=== PATIENT | male | born 1945 | race African-American/Black ===

== ENCOUNTER 2016-09-21 15:08 | Inpatient (IN) ==
[2016-09-21] MEDS ORDERED: Ipratropium/Albuterol Neb 3 ML IH ONE (15:29)
[2016-09-21] MEDS ORDERED: methylPREDNISolone 125 MG/2 ML VIAL IVP ONE (15:29)
--- NOTE | 2016-09-21 15:45 | Emergency Department Note ---
Disposition Clinical Impression: Volume overload, Hypoxia, Tachycardia, Dialysis patient, COPD exacerbation Disposition: Admitted As Inpatient Condition: Good Time of Disposition: 17:11 General Adult HPI - General Stated complaint: Swelling/Doc said I needed admitted Time Seen by Provider: 09/21/16 15:22 Source: patient, family Mode of arrival: ambulatory Limitations: no limitations Nursing Notes Reviewed: Yes Vital Signs Reviewed: Yes - History of Present Illness HPI Narrative: Patient presents emergency room with complaint of increased fluid overload. He is a known dialysis patient that had his dialysis today. His care for by Dr. Del Toro. He has noticed quite a bit of fluid overload over the last several days to a week. He was evaluated at the dialysis clinic today and recommended come the emergency room after his treatment for evaluation and possible admission. His blood pressure there was 153/83 heart rate 120 and his temperature was normal. Patient denies any other symptoms or complaints at this time. He has not had any changes medications. He has not been ill. He is currently denying chest pain fevers chills nausea vomiting or diarrhea. Denies any headache or vision change. Main complaint is exertional dyspnea and fluid overload Onset (ago): day(s) (5 days) Location: lower extremity (bilateral ) Pain Severity: severe, similar to prior episodes Pain Scale: 9 Quality: other (Increased work of breathing) Consistency: Worsening Improves with: other (Sitting upright resting and having his dialysis treatments ) Worsens with: other (Fluids and exertion) Associated symptoms: Reports: malaise, shortness of breath Treatments Prior to Arrival: none - Related Data Home Medications Medication Instructions Recorded Confirmed Carvedilol [Coreg] 25 mg PO DAILY 09/08/15 09/22/16 CloNIDine HCl 0.1 mg PO QAM 09/08/15 09/22/16 Albuterol Neb [AccuNeb] 1.25 mg IH Q4H PRN 09/21/16 09/22/16 Amlodipine [Norvasc] 5 mg PO DAILY 09/22/16 09/22/16 Budesonide/Formoterol 160/4.5 2 puff IH BIDR 09/22/16 09/22/16 [Symbicort 160/4.5] Cetirizine HCl/Pseudoephedrine 1 each PO DAILY 09/22/16 09/22/16 [Cetirizine-Pse ER 5-120 mg Tab] Cinacalcet [Sensipar] 30 mg PO DAILY 09/22/16 09/22/16 Guaifenesin/Codeine Phosphate 10 ml PO Q4H PRN 09/22/16 09/22/16 [Guaiatussin AC Liquid] Ipratropium Neb [Atrovent Neb] 0.5 mg IH Q6HR 09/22/16 09/22/16 Loperamide [Imodium] 2 mg PO Q4HR PRN 09/22/16 09/22/16 Omeprazole [PriLOSEC] 20 mg PO DAILY 09/22/16 09/22/16 Sildenafil Citrate [Viagra] 50 mg PO DAILY PRN 09/22/16 09/22/16 Tadalafil [Cialis] 20 mg PO DAILY 09/22/16 09/22/16 Previous Rx's Medication Instructions Recorded Ipratropium/Albuterol Sulfate 4 gm IH 2-4XD PRN #2 aer.w.adap 11/28/15 [Combivent Respimat Inhal [place]] Aspirin 81 mg PO DAILY #0 tab.chew 09/28/16 Diltiazem CD (24hr) [Cardizem CD] 180 mg PO DAILY #30 cap.er.24h 09/28/16 LORazepam [Ativan] 0.5 mg PO BID PRN #20 09/28/16 Losartan [Cozaar] 100 mg PO DAILY #30 tablet 09/28/16 Oxycodone HCl 15 mg PO Q6H PRN #20 tablet 09/28/16 Allergies Allergy/AdvReac Type Severity Reaction Status Date / Time rofecoxib [From Vioxx] Allergy Swelling Verified 11/26/15 17:21 of Lip/Tongue/Throat All systems ED: reviewed and negative except as stated. Constitutional: Denies: fever, chills Cardiovascular: Reports: dyspnea on exertion, orthopnea, edema. Denies: chest pain, palpitations, syncope Respiratory: Denies: cough, wheezes Gastrointestinal: Denies: abdominal pain, nausea, vomiting, diarrhea Musculoskeletal: Denies: back pain Integumentary: Denies: rash Neurological: Denies: headache Past Medical History - Past Medical History Attestation: Yes The following information was validated with the patient. Source: patient Medical history: Reports: aortic aneurysm, diabetes, dialysis, hypertension, renal disease, other Surgical history: Reports: angioplasty/stent (x3), cholecystectomy, other (AAA repair, left knee surgery.) Psychiatric history: Reports: no psych history - Social History Smoking Status: Current every day smoker Smokeless Tobacco Status: No Alcohol use: Reports: none Drug use: Reports: none Physical Exam - General Limitations: no limitations General appearance: alert, in no apparent distress - Chest Chest inspection: Present: normal inspection, symmetric chest wall rise. Absent : tenderness - Respiratory Respiratory exam: Present: respiratory distress, wheezes, accessory muscle use. Absent: stridor, prolonged expiratory phase - Cardiovascular Cardiovascular exam: Present: regular rate, tachycardia, normal heart sounds - Abdominal Exam Abdominal exam: Present: soft, Non-Tender. Absent: tenderness, distention, guarding - Extremities Exam Extremities exam: Present: normal inspection, full ROM, pedal edema (Bilateral lower extremity pitting edema. Edema is up to the knee +2 nature). Absent: tenderness - Neurological Exam Neurological exam: Present: alert, oriented X3, CN II-XII intact, normal gait - Psychiatric Psychiatric exam: Present: normal affect, normal mood - Skin Skin exam: Present: warm, dry, intact, normal color Course Course Narrative: Patient seen and examined the time of arrival. See history of present illness. 70-year-old male presents by personal vehicle for evaluation of fluid overload exertional dyspnea. He is a known dialysis patient taken care of by Dr. Del Toro. He had his normal dialysis appointment today and had his normal amount of fluid removed. There are concerned because he has had issues with fluid overload over the last 3-4 days. They were unable to get him back to his normal starting weight. Patient denies any increase in fluids denies any recent illnesses denies any chest pain headache or vision changes. He denies any other specific complaints except for fluid overload shortness of breath. Physical examination shows a chronically ill-appearing 7-year-old male that does appear in some mild respiratory distress on evaluation. He has some moderate accessory muscle use. Is atraumatic pupils are equal and reactive. Oropharynx is patent. Lungs are clear at this time and does have some wheezes in the bases during my evaluation. Heart is regular and tachycardic. No murmurs noted. No muffled heart sounds noted. Abdomen is soft nontender nondistended. Patient moves all 4 extremities appropriately. He does have some pitting edema up to the knee in the past. Patient has no other acute findings or signs of infectious etiology based on evaluation. Vital signs are reviewed he is afebrile. He is hypoxic down to 78% but is still speaking and does not have any other complaints. Based on symptom history and presentation and other underlying medical conditions patient will have breathing treatments and steroids for that here for known COPD and emphysema. Basic laboratory workup, should panel ordered. Will be collected if he has the ability to produce that at this time. Patient will also have chest x-ray to address any interstitial disease or pulmonary congestion. In the and patient will most likely need admission to hospital for fluid management at this time. Infectious etiology to rule out an underlying medical conditions will be treated. Patient stable resting comfortably in the bed at this point. He speaks in full sentences but does have some increased respirations with speaking. Disposition pending workup and evaluation - Reevaluation(s) Reevaluation #1: Patient's labs are reviewed. BNP is markedly elevated comparison to previous. Renal function is a baseline at this time. Chest x-ray does show bilateral pulmonary congestion most likely consistent with his fluid overload at this time. The patient was placed to Dr. Del Toro the patient's clinic administrator. Reviewed the presentation symptoms he recommended admission to the hospitalist for daily dialysis until symptoms have resolved. Otherwise patient's vital signs are reviewed with him as well and he says that he is persistently tachycardic he is never has been found have any other issues at this point. Admission process to be completed this time for fluid overload secondary to noncompliance with outpatient management of renal diet. Patient has been going to his appropriate dialysis evaluations. No other acute issues noted during this triage and evaluation during this ED evaluation. Admission process to be completed this time. Hospitals paged at this time Time: 17:10 Reevaluation #2: Reason discuss with the hospitalist Dr. Cervantes. Detailed review of the presentation symptoms as well as the vital signs were reviewed. Tachycardia as well as hypoxia were discussed at great length. Patient will be admitted to the hospital consultations Dr. Del Toro. No other acute recommendations noted this time. Patient informed meal provided on a renal diet and fluid restriction. Patient is stable with stable vital signs and no acute lab abnormalities. Admission process to be completed at this point. Time: 17:37 Vital Signs Temperature 98.8 F 09/21/16 15:25 Pulse Rate 128 09/21/16 15:25 Respiratory Rate 18 09/21/16 15:25 Blood Pressure 147/84 09/21/16 15:25 O2 Sat by Pulse Oximetry 90 L 09/21/16 15:25 Temperature 98.0 F 09/28/16 14:50 Pulse Rate 89 09/28/16 10:36 Respiratory Rate 22 09/28/16 19:06 Blood Pressure 191/97 09/28/16 19:06 O2 Sat by Pulse Oximetry 90 L 09/28/16 10:36 Oxygen Delivery Oxygen Delivery Nasal Cannula Medical Decision Making - MDM Narrative Medical decision making narrative: Fluid overload, dialysis patient, exertional dyspnea - Medical Records Medical records reviewed: Yes I reviewed the patient's medical records. - Lab Data Lab results reviewed: Yes I reviewed the patient's lab results. Result diagrams: 09/28/16 10:10 09/28/16 10:10 - Radiology Data Radiology results reviewed: Yes I reviewed the patient's radiology results. - EKG Data EKG #1 EKG attestation: Yes I reviewed and interpreted this EKG. Rate: tachycardia Rhythm: A. flutter, with a 2:1 block Interpretation: no acute changes (Repeat EKG done today shows a flutter with rapid ventricular response. This is consistent with previous evaluation done on 09/19/16), unchanged when compared to prior tracing (date) Critical Care Time Critical Care Time: Yes Total Critical Care Time: 35 Attestation: inDependent patient procedures and medical management Attestation Statement - Attestation Attestation: I examined this patient and my medical decision-making was reviewed with the Resident Physician. I agree with the documented findings, disposition and treatment plan as described.
[2016-09-21 16:23] LABS: Basophils % 0.5 %; Eosinophils # 0.1 K/mcL (0.0-0.6); Eosinophils % 2.1 %; Hemoglobin 11.6 g/dL (12.9-16.9); Immature Granulocytes % 0.3 % (0-4); Immature Platelets 6.3 % (1.1-6.1); Lymphocytes % 14.6 %; Mean Corpuscular HGB Conc 31.4 g/dL (31.6-35.5); Mean Corpuscular Hemoglobin 27.2 pg (28.0-33.3); Mean Corpuscular Volume 86.9 fL (83.0-100.0); Mean Platelet Volume 11.2 fL (9.4-12.4); Monocytes # 0.4 K/mcL (0.0-1.3); Monocytes % 6.1 %; Platelet Count 111 K/mcL (140-400); Red Blood Count 4.26 M/mcL (4.19-5.50); Red Cell Distribution Width 19.2 % (11.5-14.5); Segmented Neutrophils % 76.4 %
[2016-09-21 16:59] LABS: Calcium 8.8 mg/dL (8.6-10.8); Potassium 3.5 mEq/L (3.5-4.5)
--- NOTE | 2016-09-21 21:05 | Internal Med History&Physical ---
Date of Encounter: 09/22/16 Time of Encounter: 20:30 Assessment and Plan (1) Volume overload Current visit: Yes Status: Acute patient has +2 pitting edema on lower extremities bilaterally upon exam. rhonchi and wheezing heard upon exam CXR showed mild basilar opacities, slightly more prominent on the right- possible edema. It is possible that this patient may have undiagnosed CHF- ordered echocardiogram. Consider cardio-renal syndrome as a possible etiology. Continue to monitor. consult to nephrology-appreciate recommendations. Qualifiers: Hypervolemia type: unspecified Qualified Code(s): E87.70 - Fluid overload, unspecified (2) Elevated troponin Current visit: Yes Status: Acute patient's troponin level was .1 Etiology likely due to ESRD- patient has a hx of elevated troponins from previous visits. Patient denies chest pain COntinue to trend troponin continue to monitor for chest pain. (3) ESRD (end stage renal disease) on dialysis Current visit: No Status: Chronic Patient has ESRD, on dialysis MWF- sees Dr. Mg. Patient states that he is compliant with going to his dialysis sessions most weeks. He states that he usually shows up to 2/3 dialysis sessions per week. Patient received dialysis today, they sent him to ED because of fluid overload. Consult to nephrology made- patient may need back to back dialysis- nephrology to decide. Appreciate recommendations. (4) Atrial fibrillation Current visit: No Status: Chronic patient takes coumadin at home. INR measured at 1.8. continue coumadin inpatient- pharmacy to dose. Qualifiers: Atrial fibrillation type: chronic Qualified Code(s): I48.2 - Chronic atrial fibrillation (5) CAD (coronary artery disease) Current visit: No Status: Acute continue home med lipitor, aspirin once home med list is confirmed. Qualifiers: Coronary Disease-Associated Artery/Lesion type: squaxin artery [place] vs. transplanted heart: squaxin heart Associated angina: without angina Qualified Code(s): I25.10 - Atherosclerotic heart disease of squaxin coronary artery without angina pectoris (6) Tobacco abuse Current visit: No Status: Chronic patient counseled on importance of tobacco cessation. Nicotine patch PRN (7) Type 2 diabetes mellitus Current visit: No Status: Chronic diabetic diet with ACHS accuchecks. Patient does not have any diabetes meds listed on his home medication list. Medium dose sliding scale insulin coverage. Qualifiers: Diabetes mellitus complication status: with kidney complications Diabetes mellitus complication detail: with chronic kidney disease Diabetes mellitus custodial insulin use: unspecified custodial insulin use status Chronic kidney disease stage: on chronic dialysis Qualified Code(s): E11.22 - Type 2 diabetes mellitus with diabetic chronic kidney disease; N18.6 - End stage renal disease (8) DVT prophylaxis Current visit: No Status: Acute EPCD Internal Medicine - H&P: HPI Chief complaint: edema Admitted From: Home Plans for Post Hospital Care: Home History of present illness: PCP: Chilo Lewis Mr. Hernandez is a 70 year old male with PMHx of ESRD (on dialysis MWF sees Dr. Mg), hx of pancreatitis, DM, Afib (on coumadin), CAD, back pain, knee pain. He received his regular dialysis today, and made the dialysis team are of his recent fluid overload and swelling in his legs. They told him to come to the emergency department. He denies chest pain, denies nausea, vomiting, fever, and chills. He reports mild shortness of breath upon exertion and denies any sick contacts. He states that he is mostly compliant with dialysis, and goes to most of his sessions. Sometimes he may miss one of the three sessions per week that he has. Social History: smokes 2PPD for the past 50 years. rarely drinks alcohol. Denies illicit drug use. Surgical History: left rotator cuff repair, bilateral knee arthroscopy, aortic aneurysm repair, back surgery for spinal fusion. Family Hx: mother is alive and has arthritis. Father from a "mass in his belly" at age 89 Past Med Surg Social Fam HX - Past Medical History Medical history: aortic aneurysm, diabetes, dialysis, hypertension, renal disease, other Psychiatric history: no psych history - Past Surgical History Surgical History: angioplasty/stent, cholecystectomy, other - Social History Smoking Status: Current every day smoker Smokeless Tobacco Status: No Alcohol use: none Drug use: none - Family History Mother History Unknown: Yes Hx Family Cardiac Disorders: Yes (HTN) Father History Unknown: Yes Hx Family Cardiac Disorders: Yes (HTN) Internal Medicine - H&P: Meds Carvedilol [Coreg] 25 mg PO BID 09/08/15 [History] CloNIDine HCl 0.1 mg PO QAM 09/08/15 [History] Aspirin [Adult Low Dose Aspirin EC] 81 mg PO DAILY 11/26/15 [History] Atorvastatin [Lipitor] 40 mg PO HS #30 tablet 11/28/15 [Rx] Ipratropium/Albuterol Sulfate [Combivent Respimat Inhal [place]] 4 gm IH 2-4XD PRN #2 aer.w.adap 11/28/15 [Rx] Albuterol Neb [AccuNeb] 1.25 mg IH Q4H PRN 09/21/16 [History] Amitriptyline HCl 100 mg PO HS 09/21/16 [History] Amlodipine Besylate 10 mg PO DAILY 09/21/16 [History] Calcitriol 0.5 mcg PO DAILY 09/21/16 [History] Hydrochlorothiazide 25 mg PO DAILY 09/21/16 [History] Losartan Potassium [Cozaar] 50 mg PO BID 09/21/16 [History] Oxybutynin [Ditropan] 5 mg PO TID 09/21/16 [History] Oxycodone HCl 15 mg PO Q6H 09/21/16 [History] Warfarin [Coumadin] 10 mg PO MOWEFR 09/21/16 [History] Warfarin [Coumadin] 15 mg PO SUTUTHSA 09/21/16 [History] Allergies rofecoxib [From Vioxx] Allergy (Verified 11/26/15 17:21) Swelling of Lip/Tongue/Throat ROS unobtainable: other All Systems PM: A 10-system review of systems was performed and is negative for pertinent findings except as documented above in the HPI. - Constitutional Constitutional: weight gain, no anorexia, no chills, no fever(s) - Cardiovascular Cardiovascular ROS IM: dyspnea on exertion, no chest pain - Respiratory Respiratory: cough, no hemoptysis - Gastrointestinal Gastrointestinal: no abdominal pain, no hematemesis, no melena - Genitourinary Genitourinary ROS male: no hematuria - Constitutional Vitals: Temp Pulse Resp BP Pulse Ox 97.9 F 124 18 144/87 93 L 09/21/16 18:59 09/21/16 18:59 09/21/16 18:59 09/21/16 18:59 09/21/16 18:59 General appearance: Present: A&O X 3, pleasant, no acute distress - Head Head exam: Present: atraumatic, normocephalic - Neck Neck exam general surgery: Present: supple, trachea midline - Respiratory Respiratory exam: Present: rales, rhonchi - Cardiovascular Cardiovascular exam: Present: distant heart sounds - GI/Abdominal GI/Abdominal exam: Present: distended. Absent: tenderness - Extremities Exam Extremities exam: Present: pedal edema. Absent: cyanotic Additional comments: +3 pitting edema on lower extremities bilaterally. Right upper arm has AV fistula on right arm for dialysis. - Skin Additional comments: lower extremity skin extremely dry and scaling Internal Med - H&P Results - Labs CBC & Chem 7: 09/21/16 16:16 09/21/16 16:16
[2016-09-21] MEDS ORDERED: Mag Hydrox/Al Hydrox/Simeth 30 ML UDC PO PRN (21:56)
[2016-09-21] MEDS ORDERED: Naloxone 0.4 MG/ML INJ IVP PRN (21:56)
[2016-09-21] MEDS ORDERED: Ondansetron 4 MG/2 ML VIAL IVP PRN (21:56)
[2016-09-21] MEDS ORDERED: Acetaminophen 325 MG TABLET PO PRN (21:56)
[2016-09-21] MEDS ORDERED: *HR* Warfarin 5 MG TABLET PO SCH (22:00)
[2016-09-21] MEDS ORDERED: Nicotine 21 MG PATCH.TD24 TD PRN (22:28)
[2016-09-21 22:43] LABS: INR 1.8; Prothrombin Time 19.3 Seconds (9.4-12.1)
[2016-09-22] MEDS: Ipratropium/Albuterol Neb 3 ML IH PRN (00:27)
[2016-09-22] MEDS ORDERED: *HR* Dextrose 50 % in Water (Syg) 50 ML SYRINGE IVP PRN ×2 (00:55→01:38)
[2016-09-22] MEDS ORDERED: D5% in Water 1,000 ML IV PRN ×2 (00:55→01:38)
[2016-09-22] MEDS ORDERED: Dextrose Gel 15 GM PO PRN ×4 (00:55→01:38)
[2016-09-22 02:35] LABS: Albumin 3.1 g/dL (3.5-5.0); Albumin/Globulin Ratio 0.7 (1.1-2.2); Bilirubin,Total 0.7 mg/dL (0.2-1.2); Calcium 8.9 mg/dL (8.6-10.8); Globulin 4.5 g/dL (2.4-3.5); Magnesium 1.9 mg/dL (1.6-2.6); Phosphorous 4.4 mg/dL (2.3-4.7); Total Protein 7.6 g/dL (6.0-8.3)
[2016-09-22] MEDS ORDERED: *HR* EPINEPHrine 1 MG/10 ML SYRINGE IVP ONE (07:51)
[2016-09-22] MEDS ORDERED: *HR* Atropine Sulfate 1 MG/10 ML SYRINGE IV ONE (07:51)
--- NOTE | 2016-09-22 08:04 | Nephrology Consult Note ---
Date of Encounter: 09/22/16 Time of Encounter: 08:02 Assessment and Plan (1) End-stage renal disease Current Visit: Yes Status: Acute Patient has end-stage renal disease related to hypertension nephrosclerosis. He presents with worsening volume overload. This is related to missing dialysis sessions as well as to poor compliance with fluid restriction. Patient will require daily dialysis and/or ultrafiltration until his fluid overload is improved. His blood pressure is poorly controlled. We will get him back on his outpatient medications and then make any changes as necessary. (2) Benign hypertensive kidney disease with end stage renal disease Current Visit: Yes Status: Acute (3) Volume overload Current Visit: Yes Status: Acute Qualifiers: Hypervolemia type: unspecified Qualified Code(s): E87.70 - Fluid overload, unspecified (4) Atrial fibrillation Current Visit: No Status: Chronic Qualifiers: Atrial fibrillation type: chronic Qualified Code(s): I48.2 - Chronic atrial fibrillation History of Present Illness - History of Present Illness This is a 70-year-old male with end-stage renal disease who receives dialysis every Monday in [place]. End-stage renal disease related to hypertension nephrosclerosis. Patient was seen on dialysis yesterday as an outpatient. He is noted to be grossly volume overloaded. He was complaining of symptoms of weakness and pain and difficulty napping his bladder because of edema of the genital area. Patient was admitted to the hospital for volume overload and undergo daily dialysis and/or ultrafiltration. Patient does have a history of COPD. He currently denies any shortness of breath. He denies any chest pain. Does have a history of chronic back pain. He has a history of hypertension as well as atrial fibrillation. He is not clear as to what his medications are. Past Med Surg Social Fam HX - Past Medical History Medical history: aortic aneurysm, diabetes, dialysis, hypertension, renal disease, other Psychiatric history: no psych history - Past Surgical History Surgical History: angioplasty/stent, cholecystectomy, other - Social History Smoking Status: Current every day smoker Smokeless Tobacco Status: No Alcohol use: none Drug use: none - Family History Mother History Unknown: Yes Hx Family Cardiac Disorders: Yes (HTN) Father History Unknown: Yes Hx Family Cardiac Disorders: Yes (HTN) Medications and Allergies Carvedilol [Coreg] 25 mg PO BID 09/08/15 [History] CloNIDine HCl 0.1 mg PO QAM 09/08/15 [History] Aspirin [Adult Low Dose Aspirin EC] 81 mg PO DAILY 11/26/15 [History] Atorvastatin [Lipitor] 40 mg PO HS #30 tablet 11/28/15 [Rx] Ipratropium/Albuterol Sulfate [Combivent Respimat Inhal [place]] 4 gm IH 2-4XD PRN #2 aer.w.adap 11/28/15 [Rx] Albuterol Neb [AccuNeb] 1.25 mg IH Q4H PRN 09/21/16 [History] Amitriptyline HCl 100 mg PO HS 09/21/16 [History] Amlodipine Besylate 10 mg PO DAILY 09/21/16 [History] Calcitriol 0.5 mcg PO DAILY 09/21/16 [History] Hydrochlorothiazide 25 mg PO DAILY 09/21/16 [History] Losartan Potassium [Cozaar] 50 mg PO BID 09/21/16 [History] Oxybutynin [Ditropan] 5 mg PO TID 09/21/16 [History] Oxycodone HCl 15 mg PO Q6H 09/21/16 [History] Warfarin [Coumadin] 10 mg PO MOWEFR 09/21/16 [History] Warfarin [Coumadin] 15 mg PO SUTUTHSA 09/21/16 [History] Allergies rofecoxib [From Vioxx] Allergy (Verified 11/26/15 17:21) Swelling of Lip/Tongue/Throat Review of Systems Constitutional: weakness, weight gain, no excessive sweating, no weight loss Eyes: bilateral: blurred vision (patient denies), diplopia (patient denies) Nose, mouth and throat: no dizziness, no headache(s) Cardiovascular: dyspnea, dyspnea on exertion, edema, irregular heart rhythm, leg edema, pedal edema, no chest pain, no palpitations Respiratory: dyspnea, dyspnea on exertion Gastrointestinal: no abdominal pain, no change in bowel habits Genitourinary Male: difficulty urinating Musculoskeletal: back pain Integumentary: no hirsutism, no striae Neurological: as per HPI, weakness Psychiatric: no depression, no difficulty concentrating Endocrine: as per HPI Hematologic/Lymphatic: no easy bruising, no lymphadenopathy Exam - Vital Signs Vital signs: Initial Vital Signs Temp Pulse Resp BP Pulse Ox 98.8 F 128 18 147/84 90 L 09/21/16 15:25 09/21/16 15:25 09/21/16 15:25 09/21/16 15:25 09/21/16 15:25 Vital Signs - Last 8 Hours Temp Pulse Resp BP Pulse Ox 09/22/16 07:46 97.9 F 125 1 184/103 95 Intake and Output 09/21/16 09/22/16 09/22/16 23:59 07:59 15:59 Other: Blood Glucose* 163 - General Appearance Exam: Patient is sitting up in a chair. He is alert and oriented. He is in no acute distress. Neck is supple. Lungs diminished breath sounds. Heart irregular rate and rhythm. Heart rate is greater than 100. Abdomen is distended. Normal bowel sounds. No bruits masses organomegaly or tenderness. Lower extremities show 3+ edema all the way up to the thighs. There is a functioning AV fistula in the right upper extremity. Results - Lab Results 09/21/16 16:16 09/22/16 01:58 Most recent lab results Calcium 8.9 mg/dL (8.6-10.8) 09/22/16 01:58 Phosphorus 4.4 mg/dL (2.3-4.7) 09/22/16 01:58 Magnesium 1.9 mg/dL (1.6-2.6) 09/22/16 01:58 Consult Discharge Plan - Plan
[2016-09-22] MEDS ORDERED: 0.9 % Sodium Chloride 250 ML IV PRN (08:09)
[2016-09-22] MEDS: Insulin LISPRO 300 UNITS/3 ML VIAL SQ SCH ×3 (08:48→18:11)
[2016-09-22] MEDS: cloNIDine HCl 0.1 MG TABLET PO SCH (09:09)
[2016-09-22] MEDS: Diltiazem CD (24hr) 180 MG CAPSULE PO SCH (09:09)
[2016-09-22] MEDS: Aspirin 81 MG TAB.CHEW PO SCH (09:09)
[2016-09-22 10:11] LABS: INR 1.8; Prothrombin Time 19.4 Seconds (9.4-12.1)
--- NOTE | 2016-09-22 10:58 | Electrocardiograph Report ---
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
--- NOTE | 2016-09-22 17:16 | Internal Med Progress Note ---
Date of Encounter: 09/22/16 Time of Encounter: 14:00 - Assessment and plan (1) Elevated troponin Current Visit: Yes Status: Acute Assessment and plan: Chronic, now downtrending Adynamic, secondary to ESRD (2) End-stage renal disease Current Visit: Yes Status: Chronic Assessment and plan: s/p HD, renal is n board, home meds have been restarted (3) Volume overload Current Visit: Yes Status: Acute Assessment and plan: s/p Ultrafiltration Hemodynamically stable Continue UF per renal Follow ECHO Ensure fluid restriction Qualifiers: Hypervolemia type: unspecified Qualified Code(s): E87.70 - Fluid overload, unspecified (4) CAD (coronary artery disease) Current Visit: No Status: Chronic Assessment and plan: NO chest pain, resume home meds Qualifiers: Coronary Disease-Associated Artery/Lesion type: [place] artery [place] vs. transplanted heart: [place] heart Associated angina: without angina Qualified Code(s): I25.10 - Atherosclerotic heart disease of [place] coronary artery without angina pectoris (5) DVT prophylaxis Current Visit: Yes Status: Acute Assessment and plan: On coumadin, resume same (6) Atrial fibrillation Current Visit: No Status: Chronic Assessment and plan: Rate is controlled INR subtherapeutic, resume home coumadin Monitor INR Qualifiers: Atrial fibrillation type: chronic Qualified Code(s): I48.2 - Chronic atrial fibrillation (7) ESRD (end stage renal disease) on dialysis Current Visit: No Status: Chronic (8) Tobacco abuse Current Visit: No Status: Chronic (9) Type 2 diabetes mellitus Current Visit: No Status: Chronic Assessment and plan: SSI Qualifiers: Diabetes mellitus complication status: with kidney complications Diabetes mellitus complication detail: with chronic kidney disease Diabetes mellitus long-term insulin use: unspecified long-term insulin use status Chronic kidney disease stage: on chronic dialysis Qualified Code(s): E11.22 - Type 2 diabetes mellitus with diabetic chronic kidney disease; N18.6 - End stage renal disease - Subjective Interval history: Mr. Hernandez is a 70 Y/O M with PMH of ESRD on HD MWF, not complaint, HTN (not complaint per his pharmacy, he has not filled any of his medications since April 2016), Atrial fibrillation on Coumadin (not therapeutic), CAD, Active tobacco use, DM2 He is admitted and being managed for volume overload secondary to medication, fluid restriction and HD non-compliance He was seen in his room after hemodialysis, he was having lunch He denied any new complains He reports his breathing has improved because of HD, his bilateral lower extremity swelling remains same - Constitutional Vitals: Temp Pulse Resp BP Pulse Ox 97.8 F 83 16 106/64 91 L 09/22/16 15:48 09/22/16 15:48 09/22/16 15:48 09/22/16 15:48 09/22/16 15:48 General appearance: Present: A&O X 3, pleasant, no acute distress - Head Head exam: Present: atraumatic, normocephalic - Eye Eye exam: Present: PERRL, conjuntiva pink, sclera anicteric Pupils: Present: PERRL - Neck Neck exam general surgery: Present: supple, trachea midline. Absent: lymphadenopathy - Respiratory Respiratory exam: Present: CTAB. Absent: accessory muscle use, rales, rhonchi, wheezes - Cardiovascular Cardiovascular exam: Present: irregular rhythm, +S1, +S2. Absent: diastolic murmur, gallop, rubs, systolic murmur - GI/Abdominal GI/Abdominal exam: Present: normal bowel sounds, soft, no peritoneal signs. Absent: distended, tenderness - Extremities Exam Extremities exam: Present: pedal edema, warm, radial pulses palpable and symetrical. Absent: calf tenderness, cyanotic - Neurological Exam Neurological exam: Present: CN II-XII intact, oriented X3, no focal deficits. Absent: pronater drift, facial droop, speech deficit - Skin Skin exam: Present: dry Internal Medicine: Result - Labs CBC & Chem 7: 09/21/16 16:16 09/22/16 01:58 - ABG Interpretation ABG results: PT/INR, D-dimer PT 19.4 Seconds (9.4-12.1) H 09/22/16 08:55 - VTE Reasons for not Prescribing Prophylaxis: Not indicated-Anticoagulated or INR therapeutic Documentation of Mechanical Device: Intermittent pneumatic compression device Consult Discharge Plan - Plan Referrals: Chilo Lewis Jr, MD [Primary Care Provider] - 10/06/16 9:00 am
[2016-09-22] MEDS ORDERED: Warfarin perPT PO PRN (18:00)
[2016-09-22] MEDS ORDERED: *HR* Warfarin 5 MG TABLET PO SCH (18:00)
[2016-09-22] MEDS ORDERED: *HR* Warfarin 10 MG TABLET PO ONE (18:00)
[2016-09-22] MEDS ORDERED: *HR* Warfarin 5 MG TABLET PO ONE (18:00)
[2016-09-22] MEDS ORDERED: Insulin LISPRO 300 UNITS/3 ML VIAL SQ SCH (21:00)
[2016-09-23] MEDS: cloNIDine HCl 0.1 MG TABLET PO SCH (02:59)
[2016-09-23] MEDS ORDERED: *HR* Promethazine 25 MG/ML VIAL IVP ONE (05:37)
[2016-09-23 06:02] LABS: Hemoglobin 11.5 g/dL (12.9-16.9); Immature Granulocytes % 0.7 % (0-4)
[2016-09-23 06:04] LABS: Basophils % 0.3 %; Eosinophils # 0.1 K/mcL (0.0-0.6); Eosinophils % 0.9 %; Hematocrit 37.3 % (37.5-50.1); Lymphocytes # 2.3 K/mcL (0.6-4.6); Lymphocytes % 26.3 %; Mean Corpuscular HGB Conc 30.8 g/dL (31.6-35.5); Mean Corpuscular Hemoglobin 27.3 pg (28.0-33.3); Mean Corpuscular Volume 88.4 fL (83.0-100.0); Monocytes # 0.6 K/mcL (0.0-1.3); Neutrophils # 5.6 K/mcL (1.6-8.9); Red Blood Count 4.22 M/mcL (4.19-5.50); Segmented Neutrophils % 64.8 %
[2016-09-23 06:07] LABS: INR 2.6; Prothrombin Time 28.8 Seconds (9.4-12.1)
[2016-09-23] MEDS ORDERED: 0.9 % Sodium Chloride 250 ML IVC ONE (06:17)
[2016-09-23 06:24] LABS: Albumin/Globulin Ratio 0.7 (1.1-2.2); Bilirubin,Total 0.9 mg/dL (0.2-1.2); Calcium 8.4 mg/dL (8.6-10.8); Globulin 4.2 g/dL (2.4-3.5); Total Protein 7.2 g/dL (6.0-8.3)
[2016-09-23 06:25] LABS: Potassium 6.1 mEq/L (3.5-4.5)
[2016-09-23 06:26] LABS: Platelet Count 96 K/mcL (140-400)
[2016-09-23 06:27] LABS: Anisocytosis 1+ (Not Present); Platelet Estimate Decreased (Normal)
[2016-09-23 06:28] LABS: Hypochromasia Present (Not Present)
[2016-09-23] MEDS ORDERED: Calcium Gluconate 1,000 MG in D5% in Water 100 ML IVPB ONE (07:17)
[2016-09-23] MEDS ORDERED: Insulin Human Regular 10 UNIT in 0.9 % Sodium Chloride 10 ML IV ONE (07:18)
[2016-09-23] MEDS ORDERED: 0.9 % Sodium Chloride 250 ML IV PRN (07:27)
[2016-09-23] MEDS: Ipratropium/Albuterol Neb 3 ML IH PRN ×4 (07:34→18:06)
--- NOTE | 2016-09-23 07:56 | Pulmonology Consult Note ---
Date of Encounter: 09/23/16 Time of Encounter: 07:30 Assessment and Plan (1) Cardiopulmonary arrest Current Visit: Yes Status: Acute Pt found to be PEA on the floor this morning, received 4 rounds of ACLS and epi , calcium gluconate given, was intubated and transferred to ICU Insulin and calcium gluconate given in ICU for hyperkalemia Dr. Del Toro contacted and made aware CXR done to confirm placement of ET tube EKG demonstrating sinus bradycardia with first degree AV block, no peaked T waves appreciated Echocardiogram ordered Cardiology consulted (2) End-stage renal disease Current Visit: Yes Status: Chronic Pt of Dr. Del Toro, ESRD with dialysis MWF Reportedly attends 2/3 sessions per week Was fluid overloaded when he arrived at ED prior to admission Hyperkalemic at 6.1 at time of cardiopulmonary arrest this morning Nephrology consulted (3) Volume overload Current Visit: Yes Status: Acute Trace edema in BLE on exam today CXR today demonstrated mildly improve aeration at the right lung base compared to previous study Qualifiers: Hypervolemia type: unspecified Qualified Code(s): E87.70 - Fluid overload, unspecified (4) Elevated troponin Current Visit: Yes Status: Acute Pt troponin 0.1 on admission then 0.08 Etiology likely due to ESRD-has had elevated troponins on previous visits (5) Atrial fibrillation Current Visit: No Status: Chronic Pt on coumadin at home INR 2.6 on most recent labs Continue coumadin and monitor INR Qualifiers: Atrial fibrillation type: chronic Qualified Code(s): I48.2 - Chronic atrial fibrillation (6) Type 2 diabetes mellitus Current Visit: No Status: Chronic SSI during hospital stay Will continue to monitor glucose and adjust coverage as necessary Qualifiers: Diabetes mellitus complication status: with kidney complications Diabetes mellitus complication detail: with chronic kidney disease Diabetes mellitus penitentiary insulin use: unspecified penitentiary insulin use status Chronic kidney disease stage: on chronic dialysis Qualified Code(s): E11.22 - Type 2 diabetes mellitus with diabetic chronic kidney disease; N18.6 - End stage renal disease (7) Tobacco abuse Current Visit: No Status: Chronic Nicotine patch PRN (8) CAD (coronary artery disease) Current Visit: No Status: Chronic Qualifiers: Coronary Disease-Associated Artery/Lesion type: [place] artery [place] vs. transplanted heart: [place] heart Associated angina: without angina Qualified Code(s): I25.10 - Atherosclerotic heart disease of [place] coronary artery without angina pectoris (9) DVT prophylaxis Current Visit: Yes Status: Acute Chronic coumadin therapy EPCDs History of Present Illness Consult date: 09/23/16 Reason for consult: other (Ventilator management) Chief complaint: Volume overload History of present illness: Mr. Hernandez is a 70 year old male with history significant for ESRD on dialysis, aortic aneurysm repair, pancreatitis, DM, Afib, and CAD. He is a pt of Dr. Del Toro and has dialysis MWF. Pt presented to the ED with fluid overload and swelling in his BLE. Pt was found to be in PEA on the floor this morning. At that time he was given 4 rounds of ACLS and epi. He was hyperkalemic and given calcium gluconate on the floor. He was intubated prior to arriving in the ICU. On arrival to the ICU, pt was given calcium gluconate and insulin for his hyperkalemia. EKG showed bradycardia with no peaked T waves appreciated. Dr. Del Toro was contacted and made aware of the event and the need for dialysis this morning. Past Med Surg Social Fam HX - Past Medical History Medical history: aortic aneurysm, diabetes, dialysis, hypertension, renal disease, other Psychiatric history: no psych history - Past Surgical History Surgical History: angioplasty/stent, cholecystectomy, other - Social History Smoking Status: Current every day smoker Smokeless Tobacco Status: No Alcohol use: none Drug use: none - Family History Mother History Unknown: Yes Hx Family Cardiac Disorders: Yes (HTN) Father History Unknown: Yes Hx Family Cardiac Disorders: Yes (HTN) Medications and Allergies Carvedilol [Coreg] 25 mg PO DAILY 09/08/15 [History] CloNIDine HCl 0.1 mg PO QAM 09/08/15 [History] Ipratropium/Albuterol Sulfate [Combivent Respimat Inhal [place]] 4 gm IH 2-4XD PRN #2 aer.w.adap 11/28/15 [Rx] Albuterol Neb [AccuNeb] 1.25 mg IH Q4H PRN 09/21/16 [History] Oxycodone HCl 15 mg PO Q6H 09/21/16 [History] Warfarin [Coumadin] 10 mg PO MOWEFR 09/21/16 [History] Warfarin [Coumadin] 15 mg PO SUTUTHSA 09/21/16 [History] Amlodipine [Norvasc] 5 mg PO DAILY 09/22/16 [History] Budesonide/Formoterol 160/4.5 [Symbicort 160/4.5] 2 puff IH BIDR 09/22/16 [ History] Cetirizine HCl/Pseudoephedrine [Cetirizine-Pse ER 5-120 mg Tab] 1 each PO DAILY 09/22/16 [History] Cinacalcet [Sensipar] 30 mg PO DAILY 09/22/16 [History] Diltiazem CD (24hr) [Cardizem CD] 180 mg PO DAILY 09/22/16 [History] Guaifenesin/Codeine Phosphate [Guaiatussin AC Liquid] 10 ml PO Q4H PRN 09/22/16 [History] Ipratropium Neb [Atrovent Neb] 0.5 mg IH Q6HR 09/22/16 [History] LORazepam [Ativan] 0.5 mg PO BID PRN 09/22/16 [History] Loperamide [Imodium] 2 mg PO Q4HR PRN 09/22/16 [History] Omeprazole [PriLOSEC] 20 mg PO DAILY 09/22/16 [History] Sildenafil Citrate [Viagra] 50 mg PO DAILY PRN 09/22/16 [History] Tadalafil [Cialis] 20 mg PO DAILY 09/22/16 [History] Allergies rofecoxib [From Vioxx] Allergy (Verified 11/26/15 17:21) Swelling of Lip/Tongue/Throat ROS unobtainable: other (Pt intubated and sedated) All Systems: A 10-system review of systems was performed and is negative for pertinent findings except as documented above in the HPI. Physical Examination Vital Signs: Vital Signs, Last 4 Hours Temp Pulse Resp BP Pulse Ox 09/23/16 07:22 19 152/84 97 09/23/16 06:59 16 97 09/23/16 04:08 97.6 F 54 20 93/59 94 L General appearance: other (intubated and sedated) ENT: oropharynx moist Neck: supple, JVD Auscultation: bilateral: rhonchi Cardiovascular: other (sinus rhythm, bradycardia) Gastrointestinal: soft, other (Distended) Extremities: edema, other (skin changes consistent with chronic venous stasis) Musculoskeletal: no deformities other (unable to assess due to ET tube and sedation) Ventilator Settings Ventilator Settings: Ventilator Settings, Last 8 Hours Ventilator Mode VC+ Ventilator Mode VC+ Ventilator Tidal Volume 500 Setting Ventilator Tidal Volume 500 Setting Ventilator Respiratory Rate 12 Setting Ventilator Respiratory Rate 12 Setting Actual Respiratory Rate 16 Actual Respiratory Rate 16 Positive End Expiratory 8 Pressure Positive End Expiratory 5 Pressure Peak Inspiratory Airway 34 Pressure Peak Inspiratory Airway 39 Pressure Results - Laboratory Findings CBC and BMP: 09/23/16 05:55 09/23/16 05:55 PT/INR, D-dimer PT 28.8 Seconds (9.4-12.1) H 09/23/16 05:55 Abnormal lab findings: Abnormal lab results Hgb 11.5 g/dL (12.9-16.9) L 09/23/16 05:55 Hct 37.3 % (37.5-50.1) L 09/23/16 05:55 MCH 27.3 pg (28.0-33.3) L 09/23/16 05:55 MCHC 30.8 g/dL (31.6-35.5) L 09/23/16 05:55 RDW 19.0 % (11.5-14.5) H 09/23/16 05:55 Plt Count 96 K/mcL (140-400) L 09/23/16 05:55 Platelet Estimate Decreased (Normal) L 09/23/16 05:55 Immature Plt Fraction 7.0 % (1.1-6.1) H 09/23/16 05:55 Hypochromasia Present (Not Present) A 09/23/16 05:55 Anisocytosis 1+ (Not Present) A 09/23/16 05:55 PT 28.8 Seconds (9.4-12.1) H 09/23/16 05:55 Potassium 6.1 mEq/L (3.5-4.5) H D 09/23/16 05:55 BUN 54 mg/dL (8-26) H D 09/23/16 05:55 Creatinine 5.43 mg/dL (0.72-1.25) H 09/23/16 05:55 Est GFR ( Amer) 13 (> 60) L 09/23/16 05:55 Est GFR (Non-Af Amer) 10 (> 60) L 09/23/16 05:55 Glucose 151 mg/dL (70-99) H 09/23/16 05:55 POC Glucose 110 (58-89) H 09/23/16 07:00 Calculated Osmolality 302 (280-300) H 09/23/16 05:55 Calcium 8.4 mg/dL (8.6-10.8) L 09/23/16 05:55 Phosphorus 5.3 mg/dL (2.3-4.7) H 09/22/16 08:55 AST 126 Units/L (5-34) H 09/23/16 05:55 ALT 56 Units/L (0-55) H 09/23/16 05:55 Troponin I 0.08 ng/mL (0-0.03) H* 09/22/16 01:58 B-Natriuretic Peptide 1874 pg/mL (0-100) H 09/21/16 16:16 Albumin 3.0 g/dL (3.5-5.0) L 09/23/16 05:55 Globulin 4.2 g/dL (2.4-3.5) H 09/23/16 05:55 Albumin/Globulin Ratio 0.7 (1.1-2.2) L 09/23/16 05:55 - Clinical Findings Intake & Output: Intake & Output 09/22/16 09/22/16 09/23/16 15:59 23:59 07:59 Intake Total 870 / 870 240 / 240 380 / 380 Output Total 5600 / 5600 100 / 100 Balance -4730 / -4730 240 / 240 280 / 280 Weight 122.47 kg Consult Discharge Plan - Plan Referrals: Chilo Lewis Jr, MD [Primary Care Provider] - 10/06/16 9:00 am
--- NOTE | 2016-09-23 08:09 | Event Note ---
Date of Encounter: 09/23/16 Time of Encounter: 06:40 Britney kenney was called at about 06:35 AM. On my arrival - Chest compressions; bag/ mask ventilation were underway. Rhythm check - asystole / PEA. Pt was given epinephrine and CPR continued. Labs done this morning prior to the code anne marie showed potassium of 6.1; bicarb 21. We have given 1 gm of calcium chloride and 1 amp of sod bicarb. Pt regained pulses, bradycardic. Given 1 mg of atropine. Pt was intubated during the code. He was transferred to ICU - I signed out to the ICU attending Dr Damon and ICU resident. CXR was pending; ABG was pending. Pt needs stat dialysis. (Apparently pt refused Hemo-dialysis and non- compliant with dialysis, per pt's attending Dr Godwin).
--- NOTE | 2016-09-23 08:14 | Nephrology Progress Note ---
Date of Encounter: 09/23/16 Time of Encounter: 08:12 - Assessment and Plan (1) End-stage renal disease Current Visit: Yes Status: Chronic The patient will undergo dialysis today. He will be on a 1K bath for one hour followed by a 2K bath remainder of his treatment. He will not undergo any volume removal. Hopefully improvement in his potassium will lead to some improvement in his heart rate. He may benefit from a cardiology consultation. This was discussed with Dr. Damon. (2) Benign hypertensive kidney disease with end stage renal disease Current Visit: Yes Status: Acute (3) Volume overload Current Visit: Yes Status: Acute Qualifiers: Qualified Code(s): E87.70 - Fluid overload, unspecified (4) Atrial fibrillation Current Visit: No Status: Chronic Qualifiers: Qualified Code(s): I48.2 - Chronic atrial fibrillation Subjective Interval history: Events of been reviewed. Patient is currently in the ICU intubated. Apparently underwent a cardiac arrest. He was successfully resuscitated. He has been experiencing some bradycardia and hypotension. He is currently on dopamine. Potassium 6.1. Objective - Vital Signs Vital signs: Vital Signs Temp Pulse Resp BP Pulse Ox 09/23/16 07:22 19 152/84 97 09/23/16 06:59 16 97 09/23/16 04:08 97.6 F 54 20 93/59 94 L 09/22/16 23:43 97.9 F 98 20 124/65 97 09/22/16 20:57 97.4 F L 94 20 103/69 92 L 09/22/16 15:48 97.8 F 83 16 106/64 91 L 09/22/16 12:35 20 142/100 09/22/16 12:20 148/108 09/22/16 12:05 107/78 09/22/16 11:50 148/80 09/22/16 11:35 126/100 09/22/16 11:20 105/90 09/22/16 11:05 102/85 09/22/16 10:50 129/103 09/22/16 10:35 141/94 09/22/16 10:20 104/74 09/22/16 10:05 97.9 F 22 134/85 09/22/16 09:11 90 L Intake and Output 09/22/16 09/23/16 09/23/16 23:59 07:59 15:59 Intake Total 240 / 240 380 / 380 Output Total 100 / 100 Balance 240 / 240 280 / 280 Intake: Oral 240 / 240 380 / 380 Output: Urine 100 / 100 Other: Meal Dinner Percent of Meal Consumed 100% Stool Size Small Stool Consistency soft Stool Color Brown Blood Glucose* 101 - General Appearance Exam: Patient is seen and examined in the intensive care unit. He is intubated and undergoing mechanical ventilation. He is on dopamine to maintain his heart rate. Current heart rate is 48. Lungs much breath sounds otherwise clear. Heart irregular rate and rhythm consistent with atrial fibrillation. Abdomen was benign. There is less lower extremity swelling. There is a functioning AV fistula in the right arm. - Lab 09/23/16 05:55 09/23/16 05:55 Most recent lab results Calcium 8.4 mg/dL (8.6-10.8) L 09/23/16 05:55 Phosphorus 5.3 mg/dL (2.3-4.7) H 09/22/16 08:55 Magnesium 1.9 mg/dL (1.6-2.6) 09/22/16 01:58 - VTE Reasons for not Prescribing Prophylaxis: Not indicated-Anticoagulated or INR therapeutic Documentation of Mechanical Device: Intermittent pneumatic compression device Consult Discharge Plan - Plan Referrals: Chilo Lewis Jr, MD [Primary Care Provider] - 10/06/16 9:00 am
--- NOTE | 2016-09-23 08:32 | Event Note ---
Date of Encounter: 09/23/16 Time of Encounter: 08:08 Patient examined, chart and all data reviewed as well as current imaging studies. Patient was evaluated in conjunction with Dr. Thomas and I agree with her comments as outlined in her comprehensive consultation note. This gentleman apparently sustained a cardiopulmonary arrest early this morning. Per conversation with the hospitalist manage the resuscitation efforts, the patient developed pulseless electrical activity arrest. He required quality BASIC cardiopulmonary resuscitation in conjunction with ACLS protocol for PEA arrest. The potassium was borderline elevated and thus the patient received adequate therapy directed towards possible hyperkalemia as the etiology of PEA arrest. An advanced airway device was placed upon his entry into the intensive care unit and following successful resuscitation focused ultrasound evaluation revealed seemingly preserved LV function and see suspect LVH) and elevation of right-sided filling pressures as suggested by large man of the vena cava and right atrial structures. Furthermore, focused ultrasound of the chest suggested and interstitial edema pattern but no obvious pleural effusions. Examination revealed an unresponsive obese black male orally intubated. I reviewed his vitals. Neck examination notable for jugular venous prominence bonded soft tissue structures of the neck. Oral endotracheal tube was in place limiting oral pharyngeal exam. Chest exam revealed equal breath sounds bilaterally diminished in intensity by basilar crackles were also present. Cardiac exam notable for forceful laterally displaced PMI. A gallop was present as well as systolic murmur. The abdominal exam was notable for distention and tympany bowel sounds were noted. Extremities revealed a functioning aVF right upper arm, chronic lower extremity edema with venous stasis changes. Extremities were warm to palpation. Neurologic exam is quite limited in the sense the patient is status post resuscitation may have received sedation for intubation. Brainstem responses were intact nonetheless. Follow-up Chem-7 is pending at this time. Follow-up arterial blood gas is pending as well. Post resuscitation chest x-ray revealed cardiomegaly, interstitial pulmonary edema pattern reduced lung volumes at bases with likely subsegmental bibasilar atelectasis. A subsequent EKG revealed atrial fibrillation somewhat slow ventricular response slightly prolonged QRS complexes no obvious T-wave peaking. Impressions acute respiratory failure with hypoxia status post PEA arrest likely secondary to metabolic etiology posterior cardiac ischemic etiology. Acute pulmonary edema as the etiology of acute respiratory failure due to transient cardiac dysfunction and hypervolemia and patient with end-stage renal disease. The patient will undergo emergent dialysis ultrafiltration per my discussion with Dr. Del Toro. Additional evaluation for possible cardiac ischemia will be undertaken to include cardiology evaluation. Patient will require ventilatory support for at least the next 24-48 hours. Depending upon his clinical status, he may be a candidate for spontaneous breathing trial and possible extubation. However, withdraw ventilatory support will be predicated upon improvement of pulmonary edema overall volume status and her clarification of the patient's neurologic status (uncertain at this time if he could have anoxic brain injury). I reviewed the situation with Dr. Del Toro I also updated the patient's family (daughter and son).
[2016-09-23] MEDS: Insulin LISPRO 300 UNITS/3 ML VIAL SQ SCH ×5 (08:34→21:30)
[2016-09-23] MEDS: Aspirin 81 MG TAB.CHEW PO SCH (09:17)
[2016-09-23] MEDS: Diltiazem CD (24hr) 180 MG CAPSULE PO SCH (09:17)
--- NOTE | 2016-09-23 10:24 | Cardiology Consult Note ---
Date of Encounter: 09/23/16 Time of Encounter: 10:22 Assessment and Plan (1) Atrial fibrillation Current Visit: No Status: Chronic - patient takes Coumadin at home (1.8 initially, 2.6 today) - Appears to be rate controlled currently - Hold blood pressure meds due to hypotension requiring vasopressor support, restart when able - Echo ordered - Labs pending - Further recommendations pending labs, echo, attending evaluation Qualifiers: Atrial fibrillation type: chronic Qualified Code(s): I48.2 - Chronic atrial fibrillation (2) Elevated troponin level Current Visit: No Status: Acute - Presented with troponin 0.10 and down trended to 0.08 - Arrest last night with unclear etiology, likely related to acidosis/ hyperkalemia - Labs pending since patient is currently receiving dialysis (3) Cardiopulmonary arrest Current Visit: Yes Status: Acute - unclear etiology but likely related to hyperkalemia - Further management per critical care services Discussion w patient/family: The assessment and plan as outlined above was discussed with the patient and/or family members who expressed understanding and agreement. All questions were answered. Thank you for involving us in the care of your patient. Please call with any questions. History of Present Illness Consult date: 09/23/16 Requesting physician: Levon Damon Consult reason: PEA Chief complaint: PEA arrest History of present illness: Mr. Hernandez is a 70 year old male who presented to the hospital on 09/21/16 for hypoxia, A-fib with RVR, COPD exacerbation, and non-compliance with dialysis. He was admitted to the hospitalist service. Apparently he has been in rate controlled A-fib since. Troponin initially .10 and went down to 0.08. Appears to be non-compliant with medications and dialysis. Become SOB and altered last night and went into apparent PEA arrest this morning around 06:30. Initially suspected to be 2/2 hyperkalemia. Had ROSC after 2 rounds of Epi and was initially bradycardic. Patient was then given 1mg Atropine. Was also intubated during arrest. Upon my evaluation the patient is intubated but not sedated. Unable to follow commands or answer any questions. All history obtained from chart review. Past Med Surg Social Fam HX - Past Medical History Medical history: aortic aneurysm, diabetes, dialysis, hypertension, renal disease, other Psychiatric history: no psych history - Past Surgical History Surgical History: angioplasty/stent, cholecystectomy, other - Social History Smoking Status: Current every day smoker Smokeless Tobacco Status: No Alcohol use: none Drug use: none - Family History Mother History Unknown: Yes Hx Family Cardiac Disorders: Yes (HTN) Father History Unknown: Yes Hx Family Cardiac Disorders: Yes (HTN) Medications and Allergies Carvedilol [Coreg] 25 mg PO DAILY 09/08/15 [History] CloNIDine HCl 0.1 mg PO QAM 09/08/15 [History] Ipratropium/Albuterol Sulfate [Combivent Respimat Inhal [place]] 4 gm IH 2-4XD PRN #2 aer.w.adap 11/28/15 [Rx] Albuterol Neb [AccuNeb] 1.25 mg IH Q4H PRN 09/21/16 [History] Oxycodone HCl 15 mg PO Q6H 09/21/16 [History] Warfarin [Coumadin] 10 mg PO MOWEFR 09/21/16 [History] Warfarin [Coumadin] 15 mg PO SUTUTHSA 09/21/16 [History] Amlodipine [Norvasc] 5 mg PO DAILY 09/22/16 [History] Budesonide/Formoterol 160/4.5 [Symbicort 160/4.5] 2 puff IH BIDR 09/22/16 [ History] Cetirizine HCl/Pseudoephedrine [Cetirizine-Pse ER 5-120 mg Tab] 1 each PO DAILY 09/22/16 [History] Cinacalcet [Sensipar] 30 mg PO DAILY 09/22/16 [History] Diltiazem CD (24hr) [Cardizem CD] 180 mg PO DAILY 09/22/16 [History] Guaifenesin/Codeine Phosphate [Guaiatussin AC Liquid] 10 ml PO Q4H PRN 09/22/16 [History] Ipratropium Neb [Atrovent Neb] 0.5 mg IH Q6HR 09/22/16 [History] LORazepam [Ativan] 0.5 mg PO BID PRN 09/22/16 [History] Loperamide [Imodium] 2 mg PO Q4HR PRN 09/22/16 [History] Omeprazole [PriLOSEC] 20 mg PO DAILY 09/22/16 [History] Sildenafil Citrate [Viagra] 50 mg PO DAILY PRN 09/22/16 [History] Tadalafil [Cialis] 20 mg PO DAILY 09/22/16 [History] Allergies rofecoxib [From Vioxx] Allergy (Verified 11/26/15 17:21) Swelling of Lip/Tongue/Throat ROS unobtainable: due to endotracheal tube All Systems Review: A 10-system review of systems was performed and is negative for pertinent findings except as documented above in the HPI. Physical Examination Vital Signs, Last 4 Hours Temp Pulse Resp BP Pulse Ox 09/23/16 10:05 97/63 09/23/16 09:50 93/58 09/23/16 09:35 102/59 09/23/16 09:27 16 98/60 97 09/23/16 09:25 70 16 98/60 97 09/23/16 09:20 90/58 09/23/16 09:05 98/55 09/23/16 08:50 94/58 09/23/16 08:35 95/57 09/23/16 08:20 97.5 F L 12 103/70 09/23/16 08:00 97.5 F L 44 16 86/51 98 09/23/16 07:22 19 152/84 97 09/23/16 06:59 16 97 General: Other (intubated) HEENT: Atraumatic, Normocephaly, Mucus Membranes Moist Neck: Normal carotid pulses Cardiac: Other (Normal rate, A-fib, systolic murmur ) Lungs: Other (decreased breath sounds in bases, ventilatory support ) Neuro: Other (intubated, not currently sedated, will not follow commands, GCS 3T ) Abdomen: Other (distended with normal bowel sounds, non-rigid) Skin: Other (chronic venous stasis changes to BLE) Musculoskeletal: Other (unable to fully evaluate 2/2 mental status ) Extremities: Other (peripheral edema) Results 09/23/16 05:55 09/23/16 05:55 Lab Results 09/23/16 09/23/16 09/23/16 05:55 05:55 05:55 WBC 8.7 Hgb 11.5 L Hct 37.3 L Plt Count 96 L INR 2.6 Sodium 137 Potassium 6.1 H D Chloride 98 Carbon Dioxide 21 BUN 54 H D Creatinine 5.43 H Glucose 151 H Calcium 8.4 L Total Bilirubin 0.9 AST 126 H ALT 56 H Alkaline Phosphatase 68 - Imaging and Cardiology Chest Xray: report reviewed Echo: pending (09/21 pre-arrest showed a-flutter with 2:1 conduction, will repeat today) Consult Discharge Plan - Plan Referrals: Chilo Lewis Jr, MD [Primary Care Provider] - 10/06/16 9:00 am
[2016-09-23] MEDS ORDERED: *HR* Midazolam HCl 2 MG/2 ML VIAL ONE (13:56)
[2016-09-23] MEDS ORDERED: *HR* Midazolam HCl 2 MG/2 ML VIAL IVP ONE (14:03)
[2016-09-23 14:06] LABS: ABG HCO3 25.5 mEQ/L (21-27); ABG PO2 423 mmHg (85-104); ABG TCO2 27.8 mEq/L (20-26)
[2016-09-23 14:07] LABS: ABG Base Excess -4.9 mEq/L (-2.0 to 3.0); ABG Oxygen Saturation 100 % (95-98); ABG PH 7.14 pH Units (7.32-7.45); Blood Gas FiO2 90 %
[2016-09-23 14:08] LABS: ABG PCO2 75 mmHg (35-45)
[2016-09-23] MEDS: Chlorhexidine Rinse 15 ML MOUTHWASH MM SCH ×2 (14:24→21:09)
[2016-09-23] MEDS: Lacri-Lube 3.5 GM TUBE BOTH EYES SCH ×2 (14:24→21:09)
[2016-09-23] MEDS: Pantoprazole 40 MG VIAL IVP SCH (15:11)
[2016-09-23 15:20] LABS: Hepatitis B Surface Antibody 0.23 mIU/mL; Hepatitis B Surface Antigen Nonreactive (Nonreactive)
--- NOTE | 2016-09-23 16:25 | Electrocardiograph Report ---
[facility] Test Date: 2016-09-23 Pat Name: Jabier Hernandez Department: 109 Room: 06 Gender: M Manager Transplant: AMEYA : 1945 Requested By: Chris Wilkerson Order Number: [id number] Reading MD: Shabbir Eric DO Measurements Intervals [place] Rate: 59 P: -46 SD: 298 QRS: 237 QRSD: 137 T: 87 QT: 469 QTc: 468 Interpretive Statements SINUS BRADYCARDIA WITH FIRST DEGREE AV BLOCK INTRAVENTRICULAR CONDUCTION DELAY POSSIBLE ANTERIOR MYOCARDIAL INFARCTION, OF INDETERMINATE AGE Electronically Signed On 09-23-16 16:23:09 EST by Shabbir Eric DO
--- NOTE | 2016-09-23 21:05 | ECHO - Doppler Report ---
Echocardiogram Name: Jabier Hernandez Date of Study: 09/23/2016 Date: 1945 Ht: 73.0 in Medical Record#: [id number] Age: 70 Wt: 270.0 lb Gender: Male BSA: 2.44 Order #: [id number] Location: [facility] Room #: IC6 Reading Physician: Franklyn Mace MD, [facility] Seam Checker: Mai Stephenson RDCS Ordering Physician: Christina Pierson DO Primary Physician: Chilo Lewis MD Indications: Cardiopulmonary Arrest Impressions: Technically sub-optimal due to clinical status (supine, on ventilator). Low-normal left ventricular systolic function, LVEF 50-55%. Atypical septal motion consistent with bundle branch block. Moderate-severe concentric left ventricular hypertrophy. Moderate left ventricular diastolic dysfunction. Normal right ventricular size. Mild RV hypokinesis. Severely dilated left atrium. Severely dilated right atrium. No significant valvular dysfunction. No evidence of pulmonary hypertension. Left Ventricular Wall Motion: Rest Echo Findings All wall segments showed normal motion. Findings: Study Quality * Technically sub-optimal due to clinical status (supine, on ventilator). ECG Findings * Sinus rhythm with PACs. Left Ventricle * Low-normal left ventricular systolic function, LVEF 50-55%. * Atypical septal motion consistent with bundle branch block. * Moderate-severe concentric left ventricular hypertrophy. * Moderate left ventricular diastolic dysfunction. Right Ventricle * Normal right ventricular size. Mild RV hypokinesis. Left Atrium * Severely dilated left atrium. Right Atrium * Severely dilated right atrium. Aorta * Normally sized aortic root. Pericardium * There is a trivial pericardial effusion present. IVC * The IVC is not well evaluated. Aortic Valve * Mild-moderately thickened aortic valve leaflets. * No aortic stenosis. * No aortic regurgitation. Mitral Valve * Mild mitral annular calcification * No mitral stenosis. * No mitral regurgitation. Tricuspid Valve * Tricuspid valve not well visualized. * No tricuspid stenosis. * Trace tricuspid regurgitation. * No evidence of pulmonary hypertension. Pulmonic Valve * Normal pulmonic valve structure. * No pulmonic stenosis. * No pulmonic regurgitation. History Hypertension Diabetes Family History of CAD History of CAD/PTCA 11/12/2012 a Previous Echo was performed. Measurements: BP: 127/ 66 2D Normal Values RVIDd: 3.95 cm IVSd: 1.80 cm 0.6 - 1.0 cm LVIDd: 5.50 cm 3.7 - 5.6 cm LVPWd: 1.60 cm 0.6 - 1.1 cm LVIDs: 3.70 cm 1.5 - 3.6 cm AO: 3.00 cm < 4.0 cm LA volume: 123 Mitral Valve Peak E:1.00 m/sec Peak A:.74 m/sec E/A Ratio:1.3 Peak E' Lat [place]:7.04 cm/s Peak E' Med [place]:5.35 cm/s E/E' Lat Ratio:14.2 E/E' Med Ratio:18.7 Tricuspid Valve TV Regurg Peak Grad: 19.00mmHg TV Regurg Peak [place]: 2.16m/sec Updated by Franklyn Mace MD, [facility] on 09/23/2016 8:50:41 PM electronically signed on 09/23/2016 9:00:05 PM with status of Final Wall Motion [place]: 1=Normal, 2=Hypokinesis, 3=Akinesis, 4=Dyskinesis, 5=Aneurysmal, 6=Hyperkinetic, X=Not Visualized (Blank)=Missing
[2016-09-24] MEDS: Insulin LISPRO 300 UNITS/3 ML VIAL SQ SCH ×6 (01:14→20:57)
[2016-09-24 04:39] LABS: Basophils % 0.4 %; Eosinophils # 0.1 K/mcL (0.0-0.6); Hematocrit 33.2 % (37.5-50.1); Hemoglobin 10.6 g/dL (12.9-16.9); Immature Granulocytes % 0.4 % (0-4); Immature Platelets 6.8 % (1.1-6.1); Lymphocytes # 1.1 K/mcL (0.6-4.6); Lymphocytes % 12.5 %; Mean Corpuscular HGB Conc 31.9 g/dL (31.6-35.5); Mean Corpuscular Hemoglobin 27.2 pg (28.0-33.3); Mean Corpuscular Volume 85.1 fL (83.0-100.0); Mean Platelet Volume 10.8 fL (9.4-12.4); Monocytes # 0.4 K/mcL (0.0-1.3); Monocytes % 4.9 %; Neutrophils # 6.8 K/mcL (1.6-8.9); Nucleated Red Blood Cells 0.4 /100 WBC (0); Platelet Count 100 K/mcL (140-400); Segmented Neutrophils % 80.8 %
[2016-09-24 04:49] LABS: INR 3.8; Prothrombin Time 42.3 Seconds (9.4-12.1)
--- NOTE | 2016-09-24 07:47 | Nephrology Progress Note ---
Date of Encounter: 09/24/16 Time of Encounter: 07:45 - Assessment and Plan (1) End-stage renal disease Current Visit: Yes Status: Chronic The patient will have his electrolytes rechecked today. Assuming his potassium is okay next dialysis will be planned for Monday. (2) Benign hypertensive kidney disease with end stage renal disease Current Visit: Yes Status: Acute (3) Volume overload Current Visit: Yes Status: Acute Qualifiers: Hypervolemia type: unspecified Qualified Code(s): E87.70 - Fluid overload, unspecified (4) Atrial fibrillation Current Visit: No Status: Chronic Qualifiers: Atrial fibrillation type: chronic Qualified Code(s): I48.2 - Chronic atrial fibrillation Subjective Interval history: The patient remains intubated and sedated on the ventilator. His blood pressure is stable. Heart rate is improved up to the 90s. Hemoglobin is stable. He received dialysis yesterday. Objective - Vital Signs Vital signs: Vital Signs Temp Pulse Resp BP Pulse Ox 09/24/16 06:00 92 16 128/98 98 09/24/16 05:40 16 151/89 99 09/24/16 05:00 95 20 134/69 99 09/24/16 04:00 98.2 F 102 16 119/75 98 09/24/16 03:35 18 142/91 99 09/24/16 03:00 106 16 142/91 09/24/16 02:00 93 16 147/95 09/24/16 01:47 16 138/83 100 09/24/16 01:00 80 15 137/86 09/24/16 00:12 97.0 F L 09/24/16 00:00 97 F L 95 16 140/81 09/23/16 23:23 16 147/99 99 09/23/16 23:00 97 16 147/99 09/23/16 22:00 95 16 127/88 09/23/16 21:47 16 130/82 100 09/23/16 20:00 90 16 118/78 95 09/23/16 19:55 16 118/78 95 09/23/16 19:00 97.4 F L 87 16 138/108 94 L 09/23/16 18:00 86 16 140/84 95 09/23/16 17:58 16 129/73 95 09/23/16 17:00 85 16 124/84 92 L 09/23/16 16:00 96.8 F L 85 16 140/87 92 L 09/23/16 15:41 16 93 L 09/23/16 15:00 97.3 F L 95 16 127/66 93 L 09/23/16 14:00 99 28 161/106 94 L 09/23/16 13:00 80 16 119/67 95 09/23/16 12:00 87 16 146/84 94 L 09/23/16 11:50 96.9 F L 12 111/98 09/23/16 11:35 130/68 09/23/16 11:20 136/70 09/23/16 11:05 136/100 09/23/16 11:00 67 16 126/69 94 L 09/23/16 10:50 118/77 09/23/16 10:35 104/64 09/23/16 10:20 111/61 09/23/16 10:05 97/63 09/23/16 10:00 81 16 97/63 91 L 09/23/16 09:50 93/58 09/23/16 09:35 102/59 09/23/16 09:27 16 98/60 97 09/23/16 09:25 70 16 98/60 97 09/23/16 09:20 90/58 09/23/16 09:05 98/55 09/23/16 08:50 94/58 09/23/16 08:35 95/57 09/23/16 08:20 97.5 F L 12 103/70 09/23/16 08:00 97.5 F L 44 16 86/51 98 Intake and Output 09/23/16 09/23/16 09/24/16 15:59 23:59 07:59 Intake Total 622 / 622 100 / 100 100 / 100 Output Total 1100 / 1100 450 / 450 Balance -478 / -478 100 / 100 -350 / -350 Intake: IV Fluids 100 / 100 100 / 100 DOPamine Premix (400mg/ 250mL D5W) 400 mg In 250 ml @ 5 MCG/KG/MIN 22.963 mls/hr IVC .[id number] [facility] Rx#:[id number] Diprivan 1,000 mg In 100 100 / 100 100 / 100 ml @ 10 MCG/KG/MIN 7.348 mls/hr IVC .[id number] [facility] Rx#:[id number] Oral 0 / 0 0 / 0 Intake, Rinseback and 600 / 600 Flushes Output: Total Dialysis Output 600 / 600 Gastric Drainage 500 / 500 450 / 450 Other: Weight 121.5 kg Blood Glucose* 77 91 85 Hemodialysis Net Fluid 0 Removed (mL) Patient Weight 09/24/16 23:59 Weight 121.5 kg - General Appearance Exam: Patient is sedated on the ventilator. He is in no acute distress. Lungs diminished breath sounds otherwise clear. Heart irregular rate and rhythm consistent with atrial fibrillation. Abdomen is distended. Abdomen is soft is no guarding or rigidity. There is some mild lower extremity swelling. There is a functioning AV fistula in the right arm. - Lab 09/24/16 03:55 09/23/16 05:55 Most recent lab results ABG pH 7.14 pH Units (7.32-7.45) L* 09/23/16 06:54 ABG pCO2 75 mmHg (35-45) H* 09/23/16 06:54 ABG pO2 423 mmHg (85-104) H 09/23/16 06:54 ABG HCO3 25.5 mEQ/L (21-27) 09/23/16 06:54 ABG O2 Saturation 100 % (95-98) H 09/23/16 06:54 Calcium 8.4 mg/dL (8.6-10.8) L 09/23/16 05:55 Phosphorus 5.3 mg/dL (2.3-4.7) H 09/22/16 08:55 Magnesium 1.9 mg/dL (1.6-2.6) 09/22/16 01:58 - VTE Reasons for not Prescribing Prophylaxis: Not indicated-Anticoagulated or INR therapeutic Documentation of Mechanical Device: Intermittent pneumatic compression device Consult Discharge Plan - Plan Referrals: Chilo Lewis Jr, MD [Primary Care Provider] - 10/06/16 9:00 am
[2016-09-24] MEDS: Diltiazem CD (24hr) 180 MG CAPSULE PO SCH (07:49)
[2016-09-24] MEDS: Aspirin 81 MG TAB.CHEW PO SCH (07:49)
[2016-09-24] MEDS: Chlorhexidine Rinse 15 ML MOUTHWASH MM SCH ×2 (07:50→20:57)
[2016-09-24] MEDS: Lacri-Lube 3.5 GM TUBE BOTH EYES SCH ×2 (07:51→20:57)
[2016-09-24] MEDS: Pantoprazole 40 MG VIAL IVP SCH (07:51)
[2016-09-24 09:57] LABS: Albumin 2.9 g/dL (3.5-5.0); Albumin/Globulin Ratio 0.8 (1.1-2.2); Bilirubin,Total 0.8 mg/dL (0.2-1.2); Calcium 8.3 mg/dL (8.6-10.8); Globulin 3.6 g/dL (2.4-3.5); Total Protein 6.5 g/dL (6.0-8.3)
[2016-09-24 09:59] LABS: Potassium 4.3 mEq/L (3.5-4.5)
--- NOTE | 2016-09-24 12:10 | Pulmonology Progress Note ---
Date of Encounter: 09/24/16 Time of Encounter: 08:20 Assessment and Plan (1) Acute respiratory failure with hypoxia Current Visit: Yes Status: Acute Acute respiratory failure with hypoxia following cardiopulmonary arrest and successful resuscitation is likely related to mild hypovolemia in this patient with end-stage renal disease. Reportedly, this patient also has a history of tobacco abuse and may have concurrent COPD. None the less, the patient is tolerating breathing trial and I anticipate that if he awakens appropriately he will be readily extubated today. Subjective Principal diagnosis: Acute respiratory failure with hypoxia Interval history: The patient is mildly sedated with propofol infusion however does awaken with reduction of sedation. He is currently tolerating spontaneous breathing trial, low FiO2 requirement. Reportedly no acute problems present overnight. Patient has acceptable hemodynamics, rhythm (currently sinus rhythm with PACs although history of paroxysmal A. fib). Objective PUL Vital signs: Last Vital Signs Temp 98.7 F 09/24/16 11:45 Pulse 115 09/24/16 11:30 Resp 25 09/24/16 11:30 BP 149/83 09/24/16 11:30 Pulse Ox 97 09/24/16 11:30 General appearance: no acute distress, other (Orally intubated mildly sedated) Neck: JVD Auscultation: bilateral: diminished breath sounds, rales Cardiovascular: regular rate and rhythm, murmur noted (Systolic murmur noted) Gastrointestinal: normoactive bowel sounds, non-distended Extremities: no cyanosis, edema (Chronic lower extremity edema) pupils equal and round, unable to assess due to mental status Ventilator Settings Ventilator Settings: Ventilator Settings, Last 8 Hours Ventilator Mode CPAP Ventilator Mode VC+ Ventilator Mode VC+ Ventilator Mode VC+ Ventilator Mode VC+ Ventilator Tidal Volume 500 Setting Ventilator Tidal Volume 500 Setting Ventilator Tidal Volume 500 Setting Ventilator Tidal Volume 500 Setting Ventilator Respiratory Rate 16 Setting Ventilator Respiratory Rate 16 Setting Ventilator Respiratory Rate 16 Setting Ventilator Respiratory Rate 16 Setting Actual Respiratory Rate 18 Actual Respiratory Rate 22 Actual Respiratory Rate 16 Actual Respiratory Rate 16 Actual Respiratory Rate 20 Positive End Expiratory 8 Pressure Positive End Expiratory 8 Pressure Positive End Expiratory 8 Pressure Positive End Expiratory 8 Pressure Positive End Expiratory 8 Pressure Peak Inspiratory Airway 15 Pressure Peak Inspiratory Airway 31 Pressure Peak Inspiratory Airway 32 Pressure Peak Inspiratory Airway 33 Pressure Peak Inspiratory Airway 31 Pressure Results - Laboratory Findings CBC and BMP: 09/24/16 03:55 09/24/16 09:16 ABG ABG pH 7.14 pH Units (7.32-7.45) L* 09/23/16 06:54 ABG pCO2 75 mmHg (35-45) H* 09/23/16 06:54 ABG pO2 423 mmHg (85-104) H 09/23/16 06:54 ABG O2 Saturation 100 % (95-98) H 09/23/16 06:54 PT/INR, D-dimer PT 42.3 Seconds (9.4-12.1) H 09/24/16 03:55 Abnormal lab findings: Abnormal lab results RBC 3.90 M/mcL (4.19-5.50) L 09/24/16 03:55 Hgb 10.6 g/dL (12.9-16.9) L 09/24/16 03:55 Hct 33.2 % (37.5-50.1) L 09/24/16 03:55 MCH 27.2 pg (28.0-33.3) L 09/24/16 03:55 RDW 19.0 % (11.5-14.5) H 09/24/16 03:55 Plt Count 100 K/mcL (140-400) L 09/24/16 03:55 Nucleated RBCs/100 WBC 0.4 /100 WBC (0) H 09/24/16 03:55 Platelet Estimate Decreased (Normal) L 09/23/16 05:55 Immature Plt Fraction 6.8 % (1.1-6.1) H 09/24/16 03:55 Hypochromasia Present (Not Present) A 09/23/16 05:55 Anisocytosis 1+ (Not Present) A 09/23/16 05:55 PT 42.3 Seconds (9.4-12.1) H 09/24/16 03:55 ABG pH 7.14 pH Units (7.32-7.45) L* 09/23/16 06:54 ABG pCO2 75 mmHg (35-45) H* 09/23/16 06:54 ABG pO2 423 mmHg (85-104) H 09/23/16 06:54 ABG Total CO2 27.8 mEq/L (20-26) H 09/23/16 06:54 ABG O2 Saturation 100 % (95-98) H 09/23/16 06:54 ABG Base Excess -4.9 mEq/L (-2.0 to 3.0) L 09/23/16 06:54 Chloride 96 mEq/L (98-109) L 09/24/16 09:16 BUN 51 mg/dL (8-26) H 09/24/16 09:16 Creatinine 5.10 mg/dL (0.72-1.25) H 09/24/16 09:16 Est GFR ( Amer) 14 (> 60) L 09/24/16 09:16 Est GFR (Non-Af Amer) 11 (> 60) L 09/24/16 09:16 Calculated Osmolality 303 (280-300) H 09/24/16 09:16 Calcium 8.3 mg/dL (8.6-10.8) L 09/24/16 09:16 Phosphorus 5.3 mg/dL (2.3-4.7) H 09/22/16 08:55 AST 537 Units/L (5-34) H 09/24/16 09:16 ALT 501 Units/L (0-55) H 09/24/16 09:16 Troponin I 0.08 ng/mL (0-0.03) H* 09/22/16 01:58 B-Natriuretic Peptide 1874 pg/mL (0-100) H 09/21/16 16:16 Albumin 2.9 g/dL (3.5-5.0) L 09/24/16 09:16 Globulin 3.6 g/dL (2.4-3.5) H 09/24/16 09:16 Albumin/Globulin Ratio 0.8 (1.1-2.2) L 09/24/16 09:16 - Clinical Findings Intake & Output: Intake & Output 09/23/16 09/24/16 09/24/16 23:59 07:59 15:59 Intake Total 100 / 100 100 / 100 320 / 320 Output Total 450 / 450 Balance 100 / 100 -350 / -350 320 / 320 Weight 121.5 kg - VTE Reasons for not Prescribing Prophylaxis: Not indicated-Anticoagulated or INR therapeutic Documentation of Mechanical Device: Intermittent pneumatic compression device Consult Discharge Plan - Plan Referrals: Chilo Lewis Jr, MD [Primary Care Provider] - 10/06/16 9:00 am
[2016-09-24] MEDS: Ipratropium/Albuterol Neb 3 ML IH PRN (19:54)
[2016-09-25] MEDS: Insulin LISPRO 300 UNITS/3 ML VIAL SQ SCH ×5 (01:30→16:42)
[2016-09-25 07:02] LABS: Basophils % 0.1 %; Eosinophils # 0.1 K/mcL (0.0-0.6); Hematocrit 33.5 % (37.5-50.1); Hemoglobin 10.9 g/dL (12.9-16.9); Immature Granulocytes % 0.9 % (0-4); Lymphocytes # 1.3 K/mcL (0.6-4.6); Lymphocytes % 13.1 %; Mean Corpuscular HGB Conc 32.5 g/dL (31.6-35.5); Mean Corpuscular Hemoglobin 27.7 pg (28.0-33.3); Mean Platelet Volume 11.4 fL (9.4-12.4); Monocytes # 0.7 K/mcL (0.0-1.3); Monocytes % 6.6 %; Neutrophils # 7.7 K/mcL (1.6-8.9); Platelet Count 104 K/mcL (140-400); Red Blood Count 3.94 M/mcL (4.19-5.50); Red Cell Distribution Width 18.9 % (11.5-14.5); Segmented Neutrophils % 78.3 %
[2016-09-25 07:23] LABS: INR 4.4; Prothrombin Time 50.1 Seconds (9.4-12.1)
[2016-09-25 07:24] LABS: Albumin 2.8 g/dL (3.5-5.0); Albumin/Globulin Ratio 0.7 (1.1-2.2); Calcium 8.2 mg/dL (8.6-10.8); Potassium 4.4 mEq/L (3.5-4.5); Total Protein 6.8 g/dL (6.0-8.3)
--- NOTE | 2016-09-25 07:52 | Nephrology Progress Note ---
Date of Encounter: 09/25/16 Time of Encounter: 07:51 - Assessment and Plan (1) End-stage renal disease Current Visit: Yes Status: Chronic Overall the patient is improved. Vital signs are stable and heart rate is stable as well. He will have his next dialysis tomorrow. I anticipate he will be able to be discharged from the ICU later today. (2) Benign hypertensive kidney disease with end stage renal disease Current Visit: Yes Status: Acute (3) Volume overload Current Visit: Yes Status: Acute Qualifiers: Hypervolemia type: unspecified Qualified Code(s): E87.70 - Fluid overload, unspecified (4) Atrial fibrillation Current Visit: No Status: Chronic Qualifiers: Atrial fibrillation type: chronic Qualified Code(s): I48.2 - Chronic atrial fibrillation Subjective Principal diagnosis: Acute respiratory failure with hypoxia Interval history: Patient is extubated. He is alert and oriented and in no acute distress. She reports no complaints. He denies any shortness of breath. Blood pressure is stable and heart rate is in the 90s. Objective - Vital Signs Vital signs: Vital Signs Temp Pulse Resp BP Pulse Ox 09/25/16 07:20 97.7 F 09/25/16 06:00 91 16 143/86 96 09/25/16 05:00 99 18 152/87 92 L 09/25/16 04:15 96.3 F L 09/25/16 04:00 97 18 137/69 94 L 09/25/16 03:00 84 14 132/83 94 L 09/25/16 02:00 85 16 135/77 97 09/25/16 01:00 97 16 141/89 94 L 09/25/16 00:00 84 18 148/81 92 L 09/24/16 23:54 97.1 F L 09/24/16 23:00 80 16 146/89 95 09/24/16 22:00 99 18 141/81 95 09/24/16 21:00 103 18 126/75 94 L 09/24/16 20:00 108 18 152/86 97 09/24/16 19:55 18 97 09/24/16 19:32 96.4 F L 109 20 126/63 94 L 09/24/16 18:33 92 22 131/73 92 L 09/24/16 17:30 95 21 136/91 92 L 09/24/16 16:32 92 20 140/85 95 09/24/16 15:46 96.4 F L 09/24/16 15:30 88 17 149/81 97 09/24/16 14:30 96 19 143/93 96 09/24/16 13:30 85 22 144/83 100 09/24/16 12:30 90 22 139/88 99 09/24/16 11:45 98.7 F 09/24/16 11:30 115 25 149/83 97 09/24/16 11:12 31 149/83 98 09/24/16 10:30 109 30 131/67 96 09/24/16 10:29 30 106/78 97 09/24/16 09:13 96 28 141/72 100 09/24/16 08:43 16 102/72 93 L 09/24/16 08:30 96 16 102/72 96 09/24/16 08:13 97.5 F L Intake and Output 09/24/16 09/24/16 09/25/16 15:59 23:59 07:59 Intake Total 320 / 320 0 / 0 0 / 0 Output Total 0 / 0 Balance 320 / 320 0 / 0 0 / 0 Intake: IV Fluids 200 / 200 Diprivan 1,000 mg In 100 200 / 200 ml @ 10 MCG/KG/MIN 7.348 mls/hr IVC .[id number] [facility] Rx#:[id number] Oral 0 / 0 0 / 0 Free Water 120 / 120 Output: Urine 0 / 0 Other: Meal NPO # Urine Diapers 1 1 Weight 120.7 kg Blood Glucose* 88 93 88 - General Appearance Exam: Patient is alert and oriented. He is in no acute distress. Lung sounds. Heart irregular rate and rhythm consistent with atrial fibrillation. Abdomen is distended. Bowel sounds are present. No masses or organomegaly tenderness guarding or rigidity are noted. Lower extremities show mild lower extremity swelling. There is a functioning AV fistula in the right arm. - Lab 09/25/16 06:43 09/25/16 06:43 Most recent lab results ABG pH 7.14 pH Units (7.32-7.45) L* 09/23/16 06:54 ABG pCO2 75 mmHg (35-45) H* 09/23/16 06:54 ABG pO2 423 mmHg (85-104) H 09/23/16 06:54 ABG HCO3 25.5 mEQ/L (21-27) 09/23/16 06:54 ABG O2 Saturation 100 % (95-98) H 09/23/16 06:54 Calcium 8.2 mg/dL (8.6-10.8) L 09/25/16 06:43 Phosphorus 5.3 mg/dL (2.3-4.7) H 09/22/16 08:55 Magnesium 1.9 mg/dL (1.6-2.6) 09/22/16 01:58 - VTE Reasons for not Prescribing Prophylaxis: Not indicated-Anticoagulated or INR therapeutic Documentation of Mechanical Device: Intermittent pneumatic compression device Consult Discharge Plan - Plan Referrals: Chilo Lewis Jr, MD [Primary Care Provider] - 10/06/16 9:00 am
[2016-09-25] MEDS: Chlorhexidine Rinse 15 ML MOUTHWASH MM SCH ×2 (08:44→20:45)
[2016-09-25] MEDS: Pantoprazole 40 MG VIAL IVP SCH (08:44)
[2016-09-25] MEDS: Diltiazem CD (24hr) 180 MG CAPSULE PO SCH (08:44)
[2016-09-25] MEDS: Aspirin 81 MG TAB.CHEW PO SCH (08:44)
--- NOTE | 2016-09-25 09:57 | Pulmonology Progress Note ---
Date of Encounter: 09/25/16 Time of Encounter: 08:00 Assessment and Plan (1) Acute respiratory failure with hypoxia Current Visit: Yes Status: Acute Acute respiratory failure with hypoxia following cardiopulmonary arrest and successful resuscitation is likely related to mild hypovolemia in this patient with end-stage renal disease. Reportedly, this patient also has a history of tobacco abuse and may have concurrent COPD. the patient was successfully extubated yesterday and transitioned to low flow supplemental nasal cannula oxygen therapy. Given his overall clinical improvement. He will be transferred out of the intensive care unit today. The sputum culture which reveals gram negatives I do not believe is reflective of active lower respiratory tract infection and therefore no specific therapy will be provided at least at this time (it is possible the patient could have aspirated oral pharyngeal contents time of his arrest and intubation which would account for this finding). Management of the patient was reviewed during comprehensive critical care rounds this morning. Code(s): J96.01 - Acute respiratory failure with hypoxia SNOMED Code(s): 07148374, [id number] Subjective Principal diagnosis: Acute respiratory failure with hypoxia Interval history: The patient was successfully extubated yesterday. He requires low to moderate flow nasal cannula supplemental oxygen to achieve acceptable saturation values. Ideally, the patient should utilize a CPAP or BiPAP device at night but he is noncompliant with this recommendation. Reportedly no acute problems present overnight. has acceptable hemodynamics, rhythm (currently sinus rhythm with PACs although history of paroxysmal A. fib). Patient is awake alert and interactive with caregivers but is somewhat disoriented in reference to place (he states he is in the [facility]). Objective PUL Vital signs: Last Vital Signs Temp 97.7 F 09/25/16 07:20 Pulse 76 09/25/16 08:00 Resp 22 09/25/16 08:00 BP 152/78 09/25/16 08:00 Pulse Ox 95 09/25/16 08:00 General appearance: no acute distress, other (Obese male in no acute distress) Eyes: nonicteric ENT: oropharynx moist Mallampati (class): 3 Neck: JVD Auscultation: bilateral: diminished breath sounds, rales (Minimal bibasilar crackles, reduced breath sound intensity throughout) Cardiovascular: regular rate and rhythm, other (Loud P2) Gastrointestinal: normoactive bowel sounds, non-tender, non-distended Integumentary: normal Extremities: no cyanosis, edema (Chronic lower extremity edema, right upper extremity AVF) Musculoskeletal: no deformities non-focal exam, other (Oriented to person time and not place) mood appropriate Results - Laboratory Findings CBC and BMP: 09/25/16 06:43 09/25/16 06:43 ABG ABG pH 7.14 pH Units (7.32-7.45) L* 09/23/16 06:54 ABG pCO2 75 mmHg (35-45) H* 09/23/16 06:54 ABG pO2 423 mmHg (85-104) H 09/23/16 06:54 ABG O2 Saturation 100 % (95-98) H 09/23/16 06:54 PT/INR, D-dimer PT 50.1 Seconds (9.4-12.1) H* 09/25/16 06:43 Abnormal lab findings: Abnormal lab results RBC 3.94 M/mcL (4.19-5.50) L 09/25/16 06:43 Hgb 10.9 g/dL (12.9-16.9) L 09/25/16 06:43 Hct 33.5 % (37.5-50.1) L 09/25/16 06:43 MCH 27.7 pg (28.0-33.3) L 09/25/16 06:43 RDW 18.9 % (11.5-14.5) H 09/25/16 06:43 Plt Count 104 K/mcL (140-400) L 09/25/16 06:43 Nucleated RBCs/100 WBC 0.4 /100 WBC (0) H 09/24/16 03:55 Platelet Estimate Decreased (Normal) L 09/23/16 05:55 Immature Plt Fraction 6.8 % (1.1-6.1) H 09/24/16 03:55 Hypochromasia Present (Not Present) A 09/23/16 05:55 Anisocytosis 1+ (Not Present) A 09/23/16 05:55 PT 50.1 Seconds (9.4-12.1) H* 09/25/16 06:43 INR 4.4 H* 09/25/16 06:43 ABG pH 7.14 pH Units (7.32-7.45) L* 09/23/16 06:54 ABG pCO2 75 mmHg (35-45) H* 09/23/16 06:54 ABG pO2 423 mmHg (85-104) H 09/23/16 06:54 ABG Total CO2 27.8 mEq/L (20-26) H 09/23/16 06:54 ABG O2 Saturation 100 % (95-98) H 09/23/16 06:54 ABG Base Excess -4.9 mEq/L (-2.0 to 3.0) L 09/23/16 06:54 Chloride 95 mEq/L (98-109) L 09/25/16 06:43 BUN 69 mg/dL (8-26) H D 09/25/16 06:43 Creatinine 6.57 mg/dL (0.72-1.25) H 09/25/16 06:43 Est GFR ( Amer) 10 (> 60) L 09/25/16 06:43 Est GFR (Non-Af Amer) 8 (> 60) L 09/25/16 06:43 Glucose 102 mg/dL (70-99) H 09/25/16 06:43 Calculated Osmolality 304 (280-300) H 09/25/16 06:43 Calcium 8.2 mg/dL (8.6-10.8) L 09/25/16 06:43 Phosphorus 5.3 mg/dL (2.3-4.7) H 09/22/16 08:55 AST 224 Units/L (5-34) H 09/25/16 06:43 ALT 345 Units/L (0-55) H 09/25/16 06:43 Troponin I 0.08 ng/mL (0-0.03) H* 09/22/16 01:58 B-Natriuretic Peptide 1874 pg/mL (0-100) H 09/21/16 16:16 Albumin 2.8 g/dL (3.5-5.0) L 09/25/16 06:43 Globulin 4.0 g/dL (2.4-3.5) H 09/25/16 06:43 Albumin/Globulin Ratio 0.7 (1.1-2.2) L 09/25/16 06:43 - Microbiology Findings Microbiology Findings: Microbiology, Last 48 Hours 09/24/16 11:09 Sputum Culture - Preliminary Sputum - Clinical Findings Intake & Output: Intake & Output 09/24/16 09/25/16 09/25/16 23:59 07:59 15:59 Intake Total 0 / 0 0 / 0 Output Total 0 / 0 Balance 0 / 0 0 / 0 Weight 120.7 kg - VTE Reasons for not Prescribing Prophylaxis: Not indicated-Anticoagulated or INR therapeutic Documentation of Mechanical Device: Intermittent pneumatic compression device Consult Discharge Plan - Plan Referrals: Chilo Lewis Jr, MD [Primary Care Provider] - 10/06/16 9:00 am
[2016-09-25] MEDS ORDERED: Nicotine 21 MG PATCH.TD24 TD PRN (10:47)
[2016-09-25] MEDS ORDERED: Ondansetron 4 MG/2 ML VIAL IVP PRN (10:47)
[2016-09-25] MEDS ORDERED: Mag Hydrox/Al Hydrox/Simeth 30 ML UDC PO PRN (10:47)
[2016-09-25] MEDS ORDERED: Acetaminophen 325 MG TABLET PO PRN (10:47)
[2016-09-25] MEDS ORDERED: Warfarin perPT PO PRN (10:47)
[2016-09-25] MEDS ORDERED: D5% in Water 1,000 ML IV PRN (10:47)
[2016-09-25] MEDS ORDERED: Naloxone 0.4 MG/ML INJ IVP PRN (10:47)
[2016-09-25] MEDS ORDERED: 0.9 % Sodium Chloride 250 ML IV PRN (10:47)
[2016-09-25] MEDS ORDERED: Dextrose Gel 15 GM PO PRN ×2 (10:47)
[2016-09-25] MEDS ORDERED: *HR* Dextrose 50 % in Water (Syg) 50 ML SYRINGE IVP PRN (10:47)
[2016-09-25] MEDS ORDERED: Ipratropium/Albuterol Neb 3 ML IH PRN (10:47)
[2016-09-25] MEDS ORDERED: Insulin LISPRO 300 UNITS/3 ML VIAL SQ SCH ×3 (11:30→21:00)
--- NOTE | 2016-09-25 17:49 | Event Note ---
Date of Encounter: 09/25/16 Time of Encounter: 14:00 Patient was transferred out of the ICU after being extubated yesterday. He reports mild cough, he is awake alert and oriented. On exam heart is irregular S1-S2 with a systolic murmur. Lungs with expiratory wheezes. Plan: Continue with hemodialysis, hold warfarin tonight and check INR in the morning. His INR this morning was supratherapeutic. Continue current care. Discharge planning.
[2016-09-26] MEDS: *HR* HYDROcodone/Acet 7.5/325 mg TABLET PO PRN ×2 (01:48→09:48)
--- NOTE | 2016-09-26 04:13 | Event Note ---
Date of Encounter: 09/26/16 Time of Encounter: 04:10 I was notified by the RN that the pt had episode of hemoptysis, with clots. No sputum. pt denies chest pain. he recently had CPR and intubation. O/E bilateral crackles heard. Pt has a patent airway and is saturating at 94-96% on O2 NC 4LPM (?baseline). Labs from yesterday showed INR of 4.4. Will re-check INR and transfuse FFP stat x 4 units. Stat CXR showed no evidence of pulmonary hemorrhage. Plan: Transfer to ICU, for close monitoring. Pulmonary consult - discussed with story editor Dr Damon, who agrees with the plan. No urgent need for bronchoscopy at this time.
[2016-09-26 06:05] LABS: Basophils % 0.1 %; Eosinophils # 0.1 K/mcL (0.0-0.6); Eosinophils % 1.4 %; Hematocrit 32.2 % (37.5-50.1); Hemoglobin 10.4 g/dL (12.9-16.9); Immature Granulocytes % 0.7 % (0-4); Immature Platelets 5.9 % (1.1-6.1); Lymphocytes # 1.1 K/mcL (0.6-4.6); Lymphocytes % 13.2 %; Mean Corpuscular HGB Conc 32.3 g/dL (31.6-35.5); Mean Corpuscular Hemoglobin 27.4 pg (28.0-33.3); Mean Platelet Volume 11.3 fL (9.4-12.4); Monocytes # 0.7 K/mcL (0.0-1.3); Neutrophils # 6.4 K/mcL (1.6-8.9); Red Blood Count 3.79 M/mcL (4.19-5.50); Red Cell Distribution Width 18.7 % (11.5-14.5); Segmented Neutrophils % 76.6 %
[2016-09-26 06:06] LABS: Platelet Count 97 K/mcL (140-400)
[2016-09-26 06:08] LABS: INR 4.3
[2016-09-26 06:10] LABS: Prothrombin Time 48.3 Seconds (9.4-12.1)
[2016-09-26 06:16] LABS: Albumin 2.7 g/dL (3.5-5.0); Albumin/Globulin Ratio 0.7 (1.1-2.2); Bilirubin,Total 0.7 mg/dL (0.2-1.2); Calcium 7.6 mg/dL (8.6-10.8); Potassium 4.1 mEq/L (3.5-4.5); Total Protein 6.7 g/dL (6.0-8.3)
--- NOTE | 2016-09-26 06:58 | Pulmonology Progress Note ---
<Alberto Brown - Last Filed: 09/26/16 11:24> Date of Encounter: 09/26/16 Time of Encounter: 06:57 Assessment and Plan (1) Hemoptysis Current Visit: Yes Status: Acute Patient determined to have supratherapeutic INR of 4.4 and had one episode of hemoptysis around 0400am this morning. Hb 10.4, slight decrease from 10.9 the day before. CXR this morning revealed increased bilateral lower lobe disease which may be due to atelectasis, pneumonia, or edema. CT chest without contrast revealed small bilateral pleural effusions and mild bilateral ground-glass opacity, superimposed atelectasis or pneumonitis at bilateral lung bases as well as bibasilar airway disease and mucous plugging. CT abdomen/pelvis ordered as is was reported blood was found in abdomen on CT chest. CT abdomen/pelvis consistent with acute pancreatitis which has improved , however there is increased edema within the abdomen and pelvis. Exam revealed blood and clots in oral cavity. No additional episodes of hemoptysis NPO diet Hold coumadin 4 Units FFP cross and typed, to transfuse 4 Units, to recheck PT/INR after completion of transfusion. To perform bronchoscopy as unable to determine source of hemoptysis. (2) Acute respiratory failure with hypoxia Current Visit: Yes Status: Resolved Resolved. Patient was successfully extubated 09/24/16. Acute respiratory failure following cardiopulmonary arrest on 09/23/16 and successful resusictation. (3) ESRD (end stage renal disease) on dialysis Current Visit: Yes Status: Chronic Patient with ESRD receiving three times weekly dialysis. Continue to monitor electrolytes Proceed with dialysis as scheduled. (4) Cardiopulmonary arrest Current Visit: Yes Status: Resolved Noted to be in [facility] on 09/23/16. Successfully resuscitated, intubated, transferred to ICU, and extubated on 09/24/16. (5) Atrial fibrillation Current Visit: Yes Status: Chronic Patient with history of paroxysmal afib on coumadin. Patient currently irregular rate and rhythm, rate controlled in 70s. Hold coumadin due to supratherapeutic INR of 4.3 and episode of hemoptysis. Qualifiers: Atrial fibrillation type: paroxysmal Qualified Code(s): I48.0 - Paroxysmal atrial fibrillation (6) CAD (coronary artery disease) Current Visit: Yes Status: Chronic Continue with home medications for chronic disease management. Qualifiers: Coronary Disease-Associated Artery/Lesion type: [place] artery [place] vs. transplanted heart: [place] heart Associated angina: without angina Qualified Code(s): I25.10 - Atherosclerotic heart disease of [place] coronary artery without angina pectoris (7) Type 2 diabetes mellitus Current Visit: Yes Status: Chronic Continue monitoring blood sugars and sliding scale insulin per protocol. Patient NPO at this time. 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 Subjective Principal diagnosis: Acute respiratory failure with hypoxia, hemoptysis Interval history: Overnight patient was determined to have supratherapeutic INR of 4.4. Around 0400am patient had hemoptysis with clots and no sputum. Hospitalist was notified, patient transferred to ICU, and 4 Units FFP typed, crossed, and transfused. Patient is Alert and oriented to time, place, and person, but not to situation. Patient reports substernal chest pain and coughing up blood this morning. Patient denies fevers, chills, sweats, changes in vision or hearing, nausea, vomiting, shortness of breath, abdominal pain, changes in bowels or bladder, weakness, or loss of sensation. Objective PUL Vital signs: Last Vital Signs Temp 97.7 F 09/26/16 05:00 Pulse 81 09/26/16 06:00 Resp 20 09/26/16 06:00 BP 156/94 09/26/16 06:00 Pulse Ox 99 09/26/16 06:00 General appearance: no acute distress, alert, other (alert and oriented to person, place, and time, not to situation.) Eyes: nonicteric ENT: oropharynx moist, other (significant bright red blood noted and clots over oropharynx) Neck: supple Effort: normal Auscultation: left: rhonchi, bilateral: wheezes Cardiovascular: irregular rhythm (rate controlled) Gastrointestinal: normoactive bowel sounds, soft, non-tender, other (distended) Integumentary: normal, other (lower extremity skin thickening, darkening, and mild sloughing.) Extremities: no cyanosis, edema (3+ lower extremity edema, Right Upper Extremity AV fistula noted) Musculoskeletal: no deformities Gait: normal posture normal mental status, non-focal exam, pupils equal and round, CN II-XII normal, motor strength normal and symmetric mood appropriate, affect normal Results - Laboratory Findings CBC and BMP: 09/26/16 05:56 09/26/16 05:56 ABG ABG pH 7.14 pH Units (7.32-7.45) L* 09/23/16 06:54 ABG pCO2 75 mmHg (35-45) H* 09/23/16 06:54 ABG pO2 423 mmHg (85-104) H 09/23/16 06:54 ABG O2 Saturation 100 % (95-98) H 09/23/16 06:54 PT/INR, D-dimer PT 48.3 Seconds (9.4-12.1) H* 09/26/16 05:56 Abnormal lab findings: Abnormal lab results RBC 3.79 M/mcL (4.19-5.50) L 09/26/16 05:56 Hgb 10.4 g/dL (12.9-16.9) L 09/26/16 05:56 Hct 32.2 % (37.5-50.1) L 09/26/16 05:56 MCH 27.4 pg (28.0-33.3) L 09/26/16 05:56 RDW 18.7 % (11.5-14.5) H 09/26/16 05:56 Plt Count 97 K/mcL (140-400) L 09/26/16 05:56 Nucleated RBCs/100 WBC 0.4 /100 WBC (0) H 09/24/16 03:55 Platelet Estimate Decreased (Normal) L 09/23/16 05:55 Hypochromasia Present (Not Present) A 09/23/16 05:55 Anisocytosis 1+ (Not Present) A 09/23/16 05:55 PT 48.3 Seconds (9.4-12.1) H* 09/26/16 05:56 ABG pH 7.14 pH Units (7.32-7.45) L* 09/23/16 06:54 ABG pCO2 75 mmHg (35-45) H* 09/23/16 06:54 ABG pO2 423 mmHg (85-104) H 09/23/16 06:54 ABG Total CO2 27.8 mEq/L (20-26) H 09/23/16 06:54 ABG O2 Saturation 100 % (95-98) H 09/23/16 06:54 ABG Base Excess -4.9 mEq/L (-2.0 to 3.0) L 09/23/16 06:54 Chloride 96 mEq/L (98-109) L 09/26/16 05:56 BUN 83 mg/dL (8-26) H 09/26/16 05:56 Creatinine 7.62 mg/dL (0.72-1.25) H 09/26/16 05:56 Est GFR ( Amer) 9 (> 60) L 09/26/16 05:56 Est GFR (Non-Af Amer) 7 (> 60) L 09/26/16 05:56 Glucose 178 mg/dL (70-99) H 09/26/16 05:56 POC Glucose 153 (58-89) H 09/26/16 04:56 Calculated Osmolality 312 (280-300) H 09/26/16 05:56 Calcium 7.6 mg/dL (8.6-10.8) L 09/26/16 05:56 Phosphorus 5.3 mg/dL (2.3-4.7) H 09/22/16 08:55 AST 103 Units/L (5-34) H 09/26/16 05:56 ALT 233 Units/L (0-55) H 09/26/16 05:56 Troponin I 0.08 ng/mL (0-0.03) H* 09/22/16 01:58 B-Natriuretic Peptide 1874 pg/mL (0-100) H 09/21/16 16:16 Albumin 2.7 g/dL (3.5-5.0) L 09/26/16 05:56 Globulin 4.0 g/dL (2.4-3.5) H 09/26/16 05:56 Albumin/Globulin Ratio 0.7 (1.1-2.2) L 09/26/16 05:56 - Microbiology Findings Microbiology Findings: Microbiology, Last 48 Hours 09/24/16 11:09 Sputum Culture - Preliminary Sputum - Clinical Findings Intake & Output: Intake & Output 09/25/16 09/25/16 09/26/16 15:59 23:59 07:59 Intake Total 480 / 480 820 / 820 400 / 400 Output Total 0 / 0 0 / 0 0 / 0 Balance 480 / 480 820 / 820 400 / 400 Weight 122 kg - VTE Reasons for not Prescribing Prophylaxis: Not indicated-Anticoagulated or INR therapeutic Documentation of Mechanical Device: Intermittent pneumatic compression device Consult Discharge Plan - Plan Referrals: Chilo Lewis Jr, MD [Primary Care Provider] - 10/06/16 9:00 am <Kiel Gonzalez - Last Filed: 09/26/16 17:28> Date of Encounter: 09/26/16 Objective PUL Vital signs: Last Vital Signs Temp 97.6 F 09/26/16 15:58 Pulse 89 09/26/16 15:28 Resp 15 09/26/16 15:28 BP 126/79 09/26/16 15:28 Pulse Ox 93 L 09/26/16 15:28 Results - Laboratory Findings CBC and BMP: 09/26/16 05:56 09/26/16 05:56 ABG ABG pH 7.14 pH Units (7.32-7.45) L* 09/23/16 06:54 ABG pCO2 75 mmHg (35-45) H* 09/23/16 06:54 ABG pO2 423 mmHg (85-104) H 09/23/16 06:54 ABG O2 Saturation 100 % (95-98) H 09/23/16 06:54 PT/INR, D-dimer PT 48.3 Seconds (9.4-12.1) H* 09/26/16 05:56 Abnormal lab findings: Abnormal lab results RBC 3.79 M/mcL (4.19-5.50) L 09/26/16 05:56 Hgb 10.4 g/dL (12.9-16.9) L 09/26/16 05:56 Hct 32.2 % (37.5-50.1) L 09/26/16 05:56 MCH 27.4 pg (28.0-33.3) L 09/26/16 05:56 RDW 18.7 % (11.5-14.5) H 09/26/16 05:56 Plt Count 97 K/mcL (140-400) L 09/26/16 05:56 Nucleated RBCs/100 WBC 0.4 /100 WBC (0) H 09/24/16 03:55 Platelet Estimate Decreased (Normal) L 09/23/16 05:55 Hypochromasia Present (Not Present) A 09/23/16 05:55 Anisocytosis 1+ (Not Present) A 09/23/16 05:55 PT 48.3 Seconds (9.4-12.1) H* 09/26/16 05:56 ABG pH 7.14 pH Units (7.32-7.45) L* 09/23/16 06:54 ABG pCO2 75 mmHg (35-45) H* 09/23/16 06:54 ABG pO2 423 mmHg (85-104) H 09/23/16 06:54 ABG Total CO2 27.8 mEq/L (20-26) H 09/23/16 06:54 ABG O2 Saturation 100 % (95-98) H 09/23/16 06:54 ABG Base Excess -4.9 mEq/L (-2.0 to 3.0) L 09/23/16 06:54 Chloride 96 mEq/L (98-109) L 09/26/16 05:56 BUN 83 mg/dL (8-26) H 09/26/16 05:56 Creatinine 7.62 mg/dL (0.72-1.25) H 09/26/16 05:56 Est GFR ( Amer) 9 (> 60) L 09/26/16 05:56 Est GFR (Non-Af Amer) 7 (> 60) L 09/26/16 05:56 Glucose 178 mg/dL (70-99) H 09/26/16 05:56 POC Glucose 117 (58-89) H 09/26/16 15:50 Calculated Osmolality 312 (280-300) H 09/26/16 05:56 Calcium 7.6 mg/dL (8.6-10.8) L 09/26/16 05:56 Phosphorus 5.3 mg/dL (2.3-4.7) H 09/22/16 08:55 AST 103 Units/L (5-34) H 09/26/16 05:56 ALT 233 Units/L (0-55) H 09/26/16 05:56 Troponin I 0.08 ng/mL (0-0.03) H* 09/22/16 01:58 B-Natriuretic Peptide 1874 pg/mL (0-100) H 09/21/16 16:16 Albumin 2.7 g/dL (3.5-5.0) L 09/26/16 05:56 Globulin 4.0 g/dL (2.4-3.5) H 09/26/16 05:56 Albumin/Globulin Ratio 0.7 (1.1-2.2) L 09/26/16 05:56 - Microbiology Findings Microbiology Findings: Microbiology, Last 48 Hours 09/24/16 11:09 Sputum Culture - Preliminary Sputum - Clinical Findings Intake & Output: Intake & Output 09/26/16 09/26/16 09/26/16 07:59 15:59 23:59 Intake Total 400 / 400 2766 / 2766 Output Total 0 / 0 3600 / 3600 Balance 400 / 400 -834 / -834 Weight 122 kg - Attending Attestation I examined this patient and my medical decision-making was reviewed with the STORAGE ADMINISTRATOR/PA/Advanced Practice Nurse/Resident Physician. I agree with the documented findings, disposition and treatment plan as described except to the extent set forth below. Patient seen and examined. Labs, radiology, chart personally reviewed. Agree with resident's history and physical, assessment, plan with following comments: ENGINEER INTERNSHIP: Patient follows commands, Pulmonary: Acceptable oxygenation and ventilation and continue to have hemoptysis, suspect this coagulopathy from Coumadin. Continue with FFP and hold vit K for now. Bronchoscopy done, please refer to the report. If continue, might need to consult IR. Hemoptysis could be life-threatening for him and he needs to stay in ICU. If worsen he will need invasive mechanical ventilation. Cardiovascular: stable. A fib rate control. 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 GI: Nutrition per dietary and GI prophylaxis per routine Heme: DVT prophylaxis per routine. Patient coagulopathic. Renal; Patient had ESRD Endorcine: blood glucose is monitored Lines: all lines checked and no evidence of infections Skin: skin care to prevent pressure ulcers per nursing routine care I spent 32 min of Critical Care time with this patient. It involved decision making of high complexity to assess, manipulate, and support vital organ system failure and/or to prevent further life threatening deterioration of the patient' s condition. The time involved in the performance of separately reportable procedures was not counted toward critical care time.
[2016-09-26] MEDS: Insulin LISPRO 300 UNITS/3 ML VIAL SQ SCH ×4 (08:00→23:58)
[2016-09-26] MEDS ORDERED: 0.9 % Sodium Chloride 250 ML ONE (08:06)
[2016-09-26] MEDS ORDERED: Aspirin 81 MG TAB.CHEW PO SCH (09:00)
[2016-09-26] MEDS ORDERED: 0.9 % Sodium Chloride 250 ML IV PRN (09:39)
--- NOTE | 2016-09-26 09:39 | Nephrology Progress Note ---
Date of Encounter: 09/26/16 Time of Encounter: 09:36 - Assessment and Plan (1) End-stage renal disease Current Visit: Yes Status: Chronic Patient will undergo dialysis today without any heparin. He is expressing hemoptysis in the setting of elevated INR. He is currently being transfused with fresh frozen plasma. Hemodynamically the patient is stable. He has chronic A. fib and his heart rate is currently controlled. Blood pressure is satisfactory. (2) Benign hypertensive kidney disease with end stage renal disease Current Visit: Yes Status: Acute (3) Volume overload Current Visit: Yes Status: Acute Qualifiers: Qualified Code(s): E87.70 - Fluid overload, unspecified (4) Atrial fibrillation Current Visit: Yes Status: Chronic Qualifiers: Qualified Code(s): I48.0 - Paroxysmal atrial fibrillation Subjective Principal diagnosis: Acute respiratory failure with hypoxia, hemoptysis Interval history: Patient has been experiencing hemoptysis. INR is been elevated. He is currently being transfused with fresh frozen plasma. He denies any shortness of breath. He denies any abdominal pain. Objective - Vital Signs Vital signs: Vital Signs Temp Pulse Resp BP Pulse Ox 09/26/16 09:06 92 09/26/16 09:00 92 22 145/84 97 09/26/16 08:55 98 F 92 22 145/84 97 09/26/16 08:40 98 F 86 22 155/115 09/26/16 08:00 85 22 157/98 98 09/26/16 07:45 97.5 F L 09/26/16 06:00 81 20 156/94 99 09/26/16 05:23 84 09/26/16 05:00 97.7 F 76 18 146/76 96 09/26/16 04:00 109 133/68 90 L 09/25/16 23:00 97.9 F 88 18 131/63 96 09/25/16 22:30 98.2 F 84 18 136/62 96 09/25/16 22:15 98.4 F 86 16 134/66 96 09/25/16 21:47 98.4 F 90 20 139/57 100 09/25/16 20:09 98.2 F 98 18 115/87 94 L 09/25/16 18:42 140/78 09/25/16 15:55 97.7 F 66 18 165/80 94 L 09/25/16 11:30 86 01/29/17 11:08 97.4 F L 86 18 136/76 92 L Intake and Output 09/25/16 09/26/16 09/26/16 23:59 07:59 15:59 Intake Total 820 / 820 400 / 400 270 / 270 Output Total 0 / 0 0 / 0 Balance 820 / 820 400 / 400 270 / 270 Intake: Oral 820 / 820 400 / 400 Blood Product 270 / 270 Plasma Unit 270 / 270 [id number] Output: Urine 0 / 0 0 / 0 Other: Meal Dinner NUMEROUS SNACKS Percent of Meal Consumed 75% Stool Size Large Moderate Stool Consistency soft loose Stool Characteristics Normal for Patient Stool Color Brown Brown # Bowel Movement Diapers 1 1 Weight 122 kg Blood Glucose* 186 163 Patient Weight 09/26/16 23:59 Weight 122 kg - General Appearance Exam: Patient is alert and oriented. He is in no acute distress. Lungs diminished breath sounds bilaterally. He has evidence of recent hemoptysis. Heart irregular rate and rhythm consistent with atrial fibrillation. Abdomen is distended. There is no tenderness guarding or rigidity. There is lower extremity swelling. There is a functioning AV fistula in the right arm. - Lab 09/26/16 05:56 09/26/16 05:56 Most recent lab results ABG pH 7.14 pH Units (7.32-7.45) L* 09/23/16 06:54 ABG pCO2 75 mmHg (35-45) H* 09/23/16 06:54 ABG pO2 423 mmHg (85-104) H 09/23/16 06:54 ABG HCO3 25.5 mEQ/L (21-27) 09/23/16 06:54 ABG O2 Saturation 100 % (95-98) H 09/23/16 06:54 Calcium 7.6 mg/dL (8.6-10.8) L 09/26/16 05:56 Phosphorus 5.3 mg/dL (2.3-4.7) H 09/22/16 08:55 Magnesium 1.9 mg/dL (1.6-2.6) 09/22/16 01:58 - VTE Reasons for not Prescribing Prophylaxis: Not indicated-Anticoagulated or INR therapeutic Documentation of Mechanical Device: Intermittent pneumatic compression device Consult Discharge Plan - Plan Referrals: Chilo Lewis Jr, MD [Primary Care Provider] - 10/06/16 9:00 am
[2016-09-26] MEDS: Pantoprazole 40 MG VIAL IVP SCH (09:50)
[2016-09-26] MEDS: Diltiazem CD (24hr) 180 MG CAPSULE PO SCH (09:50)
[2016-09-26] MEDS: Chlorhexidine Rinse 15 ML MOUTHWASH MM SCH ×2 (09:50→19:39)
--- NOTE | 2016-09-26 09:55 | Internal Med Progress Note ---
Date of Encounter: 09/26/16 Time of Encounter: 09:32 - Assessment and plan (1) Acute respiratory failure with hypoxia Current Visit: Yes Status: Acute (2) Hemoptysis Current Visit: Yes Status: Acute (3) Elevated troponin Current Visit: Yes Status: Ruled-out (4) End-stage renal disease Current Visit: Yes Status: Chronic (5) Volume overload Current Visit: Yes Status: Resolved Qualifiers: Hypervolemia type: unspecified Qualified Code(s): E87.70 - Fluid overload, unspecified (6) CAD (coronary artery disease) Current Visit: Yes Status: Chronic Qualifiers: Coronary Disease-Associated Artery/Lesion type: [place] artery [place] vs. transplanted heart: [place] heart Associated angina: without angina Qualified Code(s): I25.10 - Atherosclerotic heart disease of [place] coronary artery without angina pectoris (7) DVT prophylaxis Current Visit: Yes Status: Acute (8) Atrial fibrillation Current Visit: Yes Status: Chronic Qualifiers: Atrial fibrillation type: paroxysmal Qualified Code(s): I48.0 - Paroxysmal atrial fibrillation (9) ESRD (end stage renal disease) on dialysis Current Visit: Yes Status: Chronic (10) Tobacco abuse Current Visit: No Status: Chronic (11) Type 2 diabetes mellitus Current Visit: Yes Status: Chronic Qualifiers: Diabetes mellitus complication status: with kidney complications Diabetes mellitus complication detail: with chronic kidney disease Diabetes mellitus predatory animal exterminator insulin use: unspecified predatory animal exterminator insulin use status Chronic kidney disease stage: on chronic dialysis Qualified Code(s): E11.22 - Type 2 diabetes mellitus with diabetic chronic kidney disease; N18.6 - End stage renal disease - Subjective Interval history: Mr. Hernandez is a 70 Y/O M with PMH of ESRD on HD MWF, not complaint, HTN (not complaint per his pharmacy, he has not filled any of his medications since April 2016), Atrial fibrillation on Coumadin (not therapeutic), CAD, Active tobacco use, DM2 His hospital stay has been complicated by cardiac arrest ,acute hypoxemic respiratory failure requring intubation. He was extubated 09/24/16 and transferred back to the floor In the early hours of this morning ~3a.,m he began to have hemoptysis said to be chikis with blood clots, he maintained his airway and was hemodynamically stable. 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 DEVELOPER: Alert, awake, oriented X3, but poor insight At time of review, Vital signs were HR-95, BP-157/93, O2Sat 93% on 2L Oxygne by nasal cannula Gen: He had evidence of recent hemoptysis (clots of blood and blood stains in his mouth , around his chest and in the trash bag into which he was spiting) HEENT: As above Chest: Bilateral coarse breath sounds, diminished at the bases Heart: S1, S2, irregular Abdomen: Soft, not tender, no masses, normal breath sounds Extremities: LUE AVF, No pedal edema Labs and Imaging reviewed: Hb is atble, INR 4.3, Chem is at baseline Chest/Abd/Pelvis CT: small bilateral pleural effusions, mild bilat ground glass opacities, superimposed atelectasis or pneumonitis at bilateral lung bases, cardiomegaly, trace pericardial effusions Assessment/Plan 1. Acute hypoxemic respiratory failure: s/p extubation, improved, protecting airway at this time , continue O2 by nasal cannula, Pulmunology is following. High risk for decompensation due to coagulopathy from Coumadin and elevated INR with hemoptysis. Continue close monitoring in the ICU . 2. Hemoptysis: Hb is satble, hemodynamically stable, possibly from pneumonitis, no current evidence of PAH. Continue FFP transfusion, Rpt INR/PT after transfusion 3. Supratherapeutic INR: As above 4. ESRD on HD: Electrolytes are acceptable, Renal on board, HD today without heparin 5. Afib: Rate is controlled, continue current meds 6. HTN: BP is acceptable, continue current meds 7. DM: FS q4-q6h, Continue Sliding scale insulin as patient is currently NPO as a precaution - Constitutional Vitals: Temp Pulse Resp BP Pulse Ox 98 F 92 22 145/84 97 09/26/16 08:55 09/26/16 09:06 09/26/16 09:00 09/26/16 09:00 09/26/16 09:00 General appearance: Present: A&O X 3, pleasant, no acute distress Internal Medicine: Result - Labs CBC & Chem 7: 09/26/16 05:56 09/26/16 05:56 Labs: Short CBC 09/26/16 Range/Units 05:56 WBC 8.3 (4.3-11.1) K/mcL Hgb 10.4 L (12.9-16.9) g/dL Hct 32.2 L (37.5-50.1) % Plt Count 97 L (140-400) K/mcL Neutrophils # 6.4 (1.6-8.9) K/mcL BMP 09/26/16 05:56 Sodium 136 Potassium 4.1 Chloride 96 L Carbon Dioxide 22 BUN 83 H Creatinine 7.62 H Glucose 178 H Calcium 7.6 L Liver Function 09/26/16 Range/Units 05:56 Total Bilirubin 0.7 (0.2-1.2) mg/dL AST 103 H (5-34) Units/L ALT 233 H (0-55) Units/L Alkaline Phosphatase 71 (38-126) Units/L Albumin 2.7 L (3.5-5.0) g/dL - ABG Interpretation ABG results: ABG ABG pH 7.14 pH Units (7.32-7.45) L* 09/23/16 06:54 ABG pCO2 75 mmHg (35-45) H* 09/23/16 06:54 ABG pO2 423 mmHg (85-104) H 09/23/16 06:54 ABG O2 Saturation 100 % (95-98) H 09/23/16 06:54 PT/INR, D-dimer PT 48.3 Seconds (9.4-12.1) H* 09/26/16 05:56 - Impressions Impressions KUB X-Ray 09/23/16 19:01 IMPRESSION: Tip of nasogastric tube overlies the gastric fundus, with side hole just distal to the gastroesophageal junction. D/ / 09/23/2016 20:42:55 Fabian Ontiveros MD / linda Interpreting Provider: Fabian Ontiveros MD Chest X-Ray 09/26/16 03:58 IMPRESSION: Increased bilateral lower lobe disease, which may be due to atelectasis, pneumonia or edema. This is more severe in the left lower lobe D/ / Wang العراقي MD / Wang العراقي MD Interpreting Provider: Wagn العراقي MD Chest CT 09/26/16 08:35 IMPRESSION: Small bilateral pleural effusions and mild bilateral ground-glass opacity, for which mild edema could be considered. Superimposed atelectasis or pneumonitis at bilateral lung bases as well as bibasilar airways disease and mucous plugging. Cardiomegaly. Atherosclerosis, including coronary artery calcification. Trace pericardial effusion. Asymmetric soft tissue edema and fluid is seen at the anterolateral lower left chest and upper abdomen, for which some considerations include contusion, localized inflammation or infection. Suggest correlation with physical exam and follow-up to resolution. D/ / Jhoan Alex MD / Jhoan Alex MD Interpreting Provider: Jhoan Alex MD Abdomen/Pelvis CT 09/26/16 08:47 IMPRESSION: Findings as above consistent with acute pancreatitis. Inflammatory change surrounding the pancreas has improved however there is increase in edema within the abdomen and pelvis. Increase in fluid within the subcutaneous fat of the left abdomen and pelvic wall. No defined borders to suggest fluid collection. Atherosclerosis. No substantial change in ectasia of the distal abdominal aorta. No substantial change in nodular thickening of the adrenal glands. New small bilateral pleural effusions and ground-glass opacities. D/ / Margi Young MD / Margi Young MD Interpreting Provider: Margi Young MD - VTE Reasons for not Prescribing Prophylaxis: Not indicated-Anticoagulated or INR therapeutic Documentation of Mechanical Device: Intermittent pneumatic compression device Consult Discharge Plan - Plan Referrals: Chilo Lewis Jr, MD [Primary Care Provider] - 10/06/16 9:00 am
[2016-09-26] MEDS ORDERED: D5% in Water 1,000 ML IV PRN (09:56)
[2016-09-26] MEDS ORDERED: Insulin LISPRO 300 UNITS/3 ML VIAL SQ SCH ×2 (12:00)
[2016-09-26] MEDS ORDERED: Lidocaine Viscous Oral Soln 15 ML SOLUTION ONE (13:49)
[2016-09-26] MEDS ORDERED: *HR* Midazolam HCl 5 MG/5 ML VIAL IVP ONE (14:41)
[2016-09-26] MEDS ORDERED: *HR* FentaNYL (PF) 100 MCG/2 ML VIAL ONE (14:42)
[2016-09-26] MEDS ORDERED: *HR* Midazolam HCl 2 MG/2 ML VIAL IVP ONE (15:06)
[2016-09-26] MEDS ORDERED: *HR* FentaNYL (PF) 100 MCG/2 ML VIAL IVP ONE (15:06)
[2016-09-26] MEDS ORDERED: 0.9 % Sodium Chloride 2,000 ML ONE (15:35)
[2016-09-26 17:09] LABS: Source of Body Fluid LLL BAL
[2016-09-26 17:25] LABS: Prothrombin Time 21.6 Seconds (9.4-12.1)
[2016-09-26 21:13] LABS: Appearance of Body Fluid Cloudy (Clear)
[2016-09-26] MEDS: Budesonide/Formoterol 160/4.5 MDI IH SCH (22:15)
[2016-09-27 04:24] LABS: INR 1.9; Prothrombin Time 21.1 Seconds (9.4-12.1)
[2016-09-27 04:26] LABS: Activated Partial Thrombo Time 38.7 Seconds (26.0-36.0)
[2016-09-27 04:32] LABS: Calcium 8.3 mg/dL (8.6-10.8); Potassium 4.4 mEq/L (3.5-4.5)
[2016-09-27 04:34] LABS: Basophils % 0.1 %; Eosinophils # 0.1 K/mcL (0.0-0.6); Eosinophils % 1.2 %; Hematocrit 32.8 % (37.5-50.1); Hemoglobin 10.2 g/dL (12.9-16.9); Immature Granulocytes % 0.5 % (0-4); Lymphocytes % 12.7 %; Mean Corpuscular HGB Conc 31.1 g/dL (31.6-35.5); Mean Corpuscular Hemoglobin 26.6 pg (28.0-33.3); Mean Corpuscular Volume 85.6 fL (83.0-100.0); Mean Platelet Volume 10.6 fL (9.4-12.4); Monocytes # 0.5 K/mcL (0.0-1.3); Monocytes % 7.2 %; Neutrophils # 5.8 K/mcL (1.6-8.9); Platelet Count 106 K/mcL (140-400); Red Blood Count 3.83 M/mcL (4.19-5.50); Red Cell Distribution Width 18.7 % (11.5-14.5); Segmented Neutrophils % 78.3 %
[2016-09-27] MEDS: Insulin LISPRO 300 UNITS/3 ML VIAL SQ SCH ×2 (04:56→16:39)
--- NOTE | 2016-09-27 06:32 | Pulmonology Progress Note ---
<Alberto Brown - Last Filed: 09/27/16 10:21> Date of Encounter: 09/27/16 Time of Encounter: 06:32 Assessment and Plan (1) Hemoptysis Current Visit: Yes Status: Acute Bronchoscopy yesterday 09/26/16 revealed submucosal hemorrhage throughout tracheobronchial tree, petechiae, clot, and no active bleeding. Following 4 Units FFP, INR 2.0. INR at 1.9 this morning. No additional episodes of hemoptysis overnight, satting at 100% on 2L nasal cannula. Hemoptysis likely secondary to elevated INR from coumadin therapy. Patient has a history of chronic afib with MELONIE-VASC of 3. Due to history of hemoptysis and findings on bronchoscopy, at this time recommend hold coumadin and reevaluate for reinitiation of coumadin in 1 month. To continue anticoagulation with aspirin. Patient stable overnight. Stable to transfer to this morning, sign off with admitting hospitalist this morning. (2) Acute respiratory failure with hypoxia Current Visit: Yes Status: Resolved Resolved. Patient was successfully extubated 09/24/16. Acute respiratory failure following cardiopulmonary arrest on 09/23/16 and successful resusictation. (3) ESRD (end stage renal disease) on dialysis Current Visit: Yes Status: Inactive Patient with ESRD receiving three times weekly dialysis. Continue to monitor electrolytes Proceed with dialysis as scheduled. (4) Cardiopulmonary arrest Current Visit: Yes Status: Resolved Noted to be in PEA on 09/23/16. Successfully resuscitated, intubated, transferred to ICU, and extubated on 09/24/16. (5) Atrial fibrillation Current Visit: Yes Status: Chronic Patient with history of chronic afib on coumadin. Patient currently irregular rate and rhythm, rate controlled Hold coumadin due to hemoptysis and findings on bronchoscopy. MELONIE-VASc score of 3. To reevaluate patient in 1 month for reinitiation of coumadin therapy. At this time anticoagulation with aspirin. Qualifiers: Atrial fibrillation type: chronic Qualified Code(s): I48.2 - Chronic atrial fibrillation (6) Positive culture findings in sputum Current Visit: Yes Status: Acute Sputum culture from 09/24/16 revealed stenotrophomonas maltophilia sensitive to levaquin and bactrim. WBC of 7.5, no fever, no signs of infection. Broncholavage from bronchoscopy revealed moderate wbc, moderate epithelial cells , and moderate gram positive cocci. No current signs of infection. Will continue to monitor labs and vitals. No indication at this time for antibiotic therapy. (7) CAD (coronary artery disease) Current Visit: Yes Status: Chronic Continue with home medications for chronic disease management. Qualifiers: Coronary Disease-Associated Artery/Lesion type: [place] artery [place] vs. transplanted heart: [place] heart Associated angina: without angina Qualified Code(s): I25.10 - Atherosclerotic heart disease of [place] coronary artery without angina pectoris (8) Type 2 diabetes mellitus Current Visit: Yes Status: Chronic Continue monitoring blood sugars and sliding scale insulin per protocol. Patient NPO at this time. Qualifiers: Diabetes mellitus complication status: with kidney complications Diabetes mellitus complication detail: with chronic kidney disease Diabetes mellitus longterm insulin use: unspecified cuff knitter insulin use status Chronic kidney disease stage: on chronic dialysis Qualified Code(s): E11.22 - Type 2 diabetes mellitus with diabetic chronic kidney disease; N18.6 - End stage renal disease (9) DVT prophylaxis Current Visit: Yes Status: Acute Continue with EPCD. Subjective Principal diagnosis: Acute respiratory failure with hypoxia, hemoptysis Interval history: Patient did well overnight without complaints, no hemoptysis or cough. When questioned by nurses overnight, patient will get agitated and sometimes unsure where he is, but this has been baseline throughout stay. Patient denies fever, chills, sweats, dizziness, headaches, changes in vision or hearing, nausea, vomiting, chest pain, shortness of breath, hemoptysis, abdominal pain, changes in bowels or bladder, weakness, or loss of sensation. Objective PUL Vital signs: Last Vital Signs Temp 97.7 F 09/27/16 00:00 Pulse 81 09/27/16 05:55 Resp 18 09/27/16 05:55 BP 178/57 09/27/16 05:55 Pulse Ox 100 09/27/16 05:55 General appearance: no acute distress, alert, other (alert and oriented to person time and place, not to situation) Eyes: nonicteric ENT: oropharynx moist Neck: supple, no lymphadenopathy, no JVD Effort: normal Auscultation: bilateral: wheezes Cardiovascular: irregular rhythm (regular rate) Gastrointestinal: normoactive bowel sounds, soft, non-tender, non-distended Integumentary: other (thickening and darkening of skin on lower extremities) Extremities: no cyanosis, edema (2+ lower extremity edema bilaterally), other ( right upper extremity AV fistula noted) Musculoskeletal: no deformities Gait: normal posture non-focal exam, pupils equal and round, CN II-XII normal, motor strength normal and symmetric mood appropriate, affect normal Results - Laboratory Findings CBC and BMP: 09/27/16 04:04 09/27/16 04:04 ABG ABG pH 7.14 pH Units (7.32-7.45) L* 09/23/16 06:54 ABG pCO2 75 mmHg (35-45) H* 09/23/16 06:54 ABG pO2 423 mmHg (85-104) H 09/23/16 06:54 ABG O2 Saturation 100 % (95-98) H 09/23/16 06:54 PT/INR, D-dimer PT 21.1 Seconds (9.4-12.1) H 09/27/16 04:04 Abnormal lab findings: Abnormal lab results RBC 3.83 M/mcL (4.19-5.50) L 09/27/16 04:04 Hgb 10.2 g/dL (12.9-16.9) L 09/27/16 04:04 Hct 32.8 % (37.5-50.1) L 09/27/16 04:04 MCH 26.6 pg (28.0-33.3) L 09/27/16 04:04 MCHC 31.1 g/dL (31.6-35.5) L 09/27/16 04:04 RDW 18.7 % (11.5-14.5) H 09/27/16 04:04 Plt Count 106 K/mcL (140-400) L 09/27/16 04:04 Nucleated RBCs/100 WBC 0.4 /100 WBC (0) H 09/24/16 03:55 Platelet Estimate Decreased (Normal) L 09/23/16 05:55 Hypochromasia Present (Not Present) A 09/23/16 05:55 Anisocytosis 1+ (Not Present) A 09/23/16 05:55 PT 21.1 Seconds (9.4-12.1) H 09/27/16 04:04 APTT 38.7 Seconds (26.0-36.0) H 09/27/16 04:04 ABG pH 7.14 pH Units (7.32-7.45) L* 09/23/16 06:54 ABG pCO2 75 mmHg (35-45) H* 09/23/16 06:54 ABG pO2 423 mmHg (85-104) H 09/23/16 06:54 ABG Total CO2 27.8 mEq/L (20-26) H 09/23/16 06:54 ABG O2 Saturation 100 % (95-98) H 09/23/16 06:54 ABG Base Excess -4.9 mEq/L (-2.0 to 3.0) L 09/23/16 06:54 Chloride 95 mEq/L (98-109) L 09/27/16 04:04 Carbon Dioxide 30 mEq/L (19-29) H 09/27/16 04:04 BUN 48 mg/dL (8-26) H D 09/27/16 04:04 Creatinine 5.18 mg/dL (0.72-1.25) H 09/27/16 04:04 Est GFR ( Amer) 13 (> 60) L 09/27/16 04:04 Est GFR (Non-Af Amer) 11 (> 60) L 09/27/16 04:04 Glucose 100 mg/dL (70-99) H 09/27/16 04:04 POC Glucose 97 (58-89) H 09/26/16 23:57 Calculated Osmolality 301 (280-300) H 09/27/16 04:04 Calcium 8.3 mg/dL (8.6-10.8) L 09/27/16 04:04 Phosphorus 5.3 mg/dL (2.3-4.7) H 09/22/16 08:55 AST 103 Units/L (5-34) H 09/26/16 05:56 ALT 233 Units/L (0-55) H 09/26/16 05:56 Troponin I 0.08 ng/mL (0-0.03) H* 09/22/16 01:58 B-Natriuretic Peptide 1874 pg/mL (0-100) H 09/21/16 16:16 Albumin 2.7 g/dL (3.5-5.0) L 09/26/16 05:56 Globulin 4.0 g/dL (2.4-3.5) H 09/26/16 05:56 Albumin/Globulin Ratio 0.7 (1.1-2.2) L 09/26/16 05:56 Fluid Appearance Cloudy (Clear) A 09/26/16 17:08 - Microbiology Findings Microbiology Findings: Microbiology, Last 48 Hours 09/24/16 11:09 Sputum Culture - Preliminary Sputum Stenotrophomonas maltophilia 09/26/16 17:08 Gram Stain - Preliminary Left Lower Lobe Lung - Clinical Findings Intake & Output: Intake & Output 09/26/16 09/26/16 09/27/16 15:59 23:59 07:59 Intake Total 2766 / 2766 300 / 300 0 / 0 Output Total 3600 / 3600 Balance -834 / -834 300 / 300 0 / 0 Weight 118 kg - VTE Reasons for not Prescribing Prophylaxis: Not indicated-Anticoagulated or INR therapeutic Documentation of Mechanical Device: Intermittent pneumatic compression device Consult Discharge Plan - Plan Referrals: Chilo Lewis Jr, MD [Primary Care Provider] - 10/06/16 9:00 am <Kiel Gonzalez - Last Filed: 09/27/16 17:19> Date of Encounter: 09/27/16 Objective PUL Vital signs: Last Vital Signs Temp 97.6 F 09/27/16 14:51 Pulse 106 09/27/16 14:51 Resp 18 09/27/16 14:51 BP 158/75 09/27/16 14:51 Pulse Ox 96 09/27/16 14:51 Results - Laboratory Findings CBC and BMP: 09/27/16 04:04 09/27/16 04:04 ABG ABG pH 7.14 pH Units (7.32-7.45) L* 09/23/16 06:54 ABG pCO2 75 mmHg (35-45) H* 09/23/16 06:54 ABG pO2 423 mmHg (85-104) H 09/23/16 06:54 ABG O2 Saturation 100 % (95-98) H 09/23/16 06:54 PT/INR, D-dimer PT 21.1 Seconds (9.4-12.1) H 09/27/16 04:04 Abnormal lab findings: Abnormal lab results RBC 3.83 M/mcL (4.19-5.50) L 09/27/16 04:04 Hgb 10.2 g/dL (12.9-16.9) L 09/27/16 04:04 Hct 32.8 % (37.5-50.1) L 09/27/16 04:04 MCH 26.6 pg (28.0-33.3) L 09/27/16 04:04 MCHC 31.1 g/dL (31.6-35.5) L 09/27/16 04:04 RDW 18.7 % (11.5-14.5) H 09/27/16 04:04 Plt Count 106 K/mcL (140-400) L 09/27/16 04:04 Nucleated RBCs/100 WBC 0.4 /100 WBC (0) H 09/24/16 03:55 Platelet Estimate Decreased (Normal) L 09/23/16 05:55 Hypochromasia Present (Not Present) A 09/23/16 05:55 Anisocytosis 1+ (Not Present) A 09/23/16 05:55 PT 21.1 Seconds (9.4-12.1) H 09/27/16 04:04 APTT 38.7 Seconds (26.0-36.0) H 09/27/16 04:04 ABG pH 7.14 pH Units (7.32-7.45) L* 09/23/16 06:54 ABG pCO2 75 mmHg (35-45) H* 09/23/16 06:54 ABG pO2 423 mmHg (85-104) H 09/23/16 06:54 ABG Total CO2 27.8 mEq/L (20-26) H 09/23/16 06:54 ABG O2 Saturation 100 % (95-98) H 09/23/16 06:54 ABG Base Excess -4.9 mEq/L (-2.0 to 3.0) L 09/23/16 06:54 Chloride 95 mEq/L (98-109) L 09/27/16 04:04 Carbon Dioxide 30 mEq/L (19-29) H 09/27/16 04:04 BUN 48 mg/dL (8-26) H D 09/27/16 04:04 Creatinine 5.18 mg/dL (0.72-1.25) H 09/27/16 04:04 Est GFR ( Amer) 13 (> 60) L 09/27/16 04:04 Est GFR (Non-Af Amer) 11 (> 60) L 09/27/16 04:04 Glucose 100 mg/dL (70-99) H 09/27/16 04:04 POC Glucose 134 (58-89) H 09/27/16 15:50 Calculated Osmolality 301 (280-300) H 09/27/16 04:04 Calcium 8.3 mg/dL (8.6-10.8) L 09/27/16 04:04 Phosphorus 5.3 mg/dL (2.3-4.7) H 09/22/16 08:55 AST 103 Units/L (5-34) H 09/26/16 05:56 ALT 233 Units/L (0-55) H 09/26/16 05:56 Troponin I 0.08 ng/mL (0-0.03) H* 09/22/16 01:58 B-Natriuretic Peptide 1874 pg/mL (0-100) H 09/21/16 16:16 Albumin 2.7 g/dL (3.5-5.0) L 09/26/16 05:56 Globulin 4.0 g/dL (2.4-3.5) H 09/26/16 05:56 Albumin/Globulin Ratio 0.7 (1.1-2.2) L 09/26/16 05:56 Fluid Appearance Cloudy (Clear) A 09/26/16 17:08 - Microbiology Findings Microbiology Findings: Microbiology, Last 48 Hours 09/26/16 17:08 Acid Fast Stain - Final Left Lower Lobe Lung No growth. 09/26/16 17:08 Respiratory Culture - Preliminary Left Lower Lobe Lung Gram Negative Scot 09/24/16 11:09 Sputum Culture - Preliminary Sputum Stenotrophomonas maltophilia 09/26/16 17:08 Gram Stain - Preliminary Left Lower Lobe Lung - Clinical Findings Intake & Output: Intake & Output 09/27/16 09/27/16 09/27/16 07:59 15:59 23:59 Intake Total 480 / 480 480 / 480 Balance 480 / 480 480 / 480 Weight 118 kg - Attending Attestation I examined this patient and my medical decision-making was reviewed with the HYGIENE TEACHER/PA/Advanced Practice Nurse/Resident Physician. I agree with the documented findings, disposition and treatment plan as described except to the extent set forth below. Patient seen and examined. Labs, radiology, chart personally reviewed. Agree with resident's history and physical, assessment, plan with following comments: C S S REPRESENTATIVE: Patient follows commands, Pulmonary: Acceptable oxygenation and ventilation. Patient has no hemoptysis. I would recommend not to give any Coumadin at this time and recommend to repeat cause could be in about a month and if there is no evidence of hemoptysis then he can be challenged again with the treatment at that time. Aspirin acceptable DVT risk factors Cardiovascular: A. fib rate controlled GI: Nutrition per dietary and GI prophylaxis per routine Heme: DVT prophylaxis per routine ID: No needs for antibiotics Renal; end-stage renal disease on hemodialysis Endorcine: blood glucose is monitored Lines: all lines checked and no evidence of infections Skin: skin care to prevent pressure ulcers per nursing routine care Please call for any questions.
[2016-09-27] MEDS: Budesonide/Formoterol 160/4.5 MDI IH SCH ×2 (07:58→22:15)
[2016-09-27] MEDS: Pantoprazole 40 MG VIAL IVP SCH (08:13)
[2016-09-27] MEDS: Chlorhexidine Rinse 15 ML MOUTHWASH MM SCH ×2 (08:13→20:48)
[2016-09-27] MEDS: Diltiazem CD (24hr) 180 MG CAPSULE PO SCH (08:13)
[2016-09-27] MEDS ORDERED: Aspirin 81 MG TAB.CHEW PO SCH (09:00)
[2016-09-27] MEDS ORDERED: *HR* Dextrose 50 % in Water (Syg) 50 ML SYRINGE IVP PRN (10:14)
[2016-09-27] MEDS ORDERED: Nicotine 21 MG PATCH.TD24 TD PRN (10:14)
[2016-09-27] MEDS ORDERED: Acetaminophen 325 MG TABLET PO PRN (10:14)
[2016-09-27] MEDS ORDERED: 0.9 % Sodium Chloride 250 ML IV PRN (10:14)
[2016-09-27] MEDS ORDERED: Mag Hydrox/Al Hydrox/Simeth 30 ML UDC PO PRN (10:14)
[2016-09-27] MEDS ORDERED: Dextrose Gel 15 GM PO PRN ×2 (10:14)
[2016-09-27] MEDS ORDERED: D5% in Water 1,000 ML IV PRN (10:14)
[2016-09-27] MEDS ORDERED: Ipratropium/Albuterol Neb 3 ML IH PRN (10:14)
[2016-09-27] MEDS ORDERED: Ondansetron 4 MG/2 ML VIAL IVP PRN (10:14)
[2016-09-27] MEDS ORDERED: Naloxone 0.4 MG/ML INJ IVP PRN (10:14)
[2016-09-27] MEDS ORDERED: *HR* HYDROcodone/Acet 7.5/325 mg TABLET PO PRN (10:14)
[2016-09-27] MEDS ORDERED: Insulin LISPRO 300 UNITS/3 ML VIAL SQ SCH ×2 (12:00→21:00)
--- NOTE | 2016-09-27 12:02 | Nephrology Progress Note ---
Date of Encounter: 09/27/16 Time of Encounter: 11:35 - Assessment and Plan (1) End-stage renal disease Current Visit: Yes Status: Chronic Improving fluid status. Will do HD tomorrow keeping MWF schedule. Subjective Principal diagnosis: Acute respiratory failure with hypoxia, hemoptysis Interval history: Sitting up in chair, eating lunch. States feeling better. Objective - Vital Signs Vital signs: Vital Signs Temp Pulse Resp BP Pulse Ox 09/27/16 08:00 97.9 F 97 18 150/87 100 09/27/16 07:59 18 123/72 100 09/27/16 07:00 97 18 162/82 100 09/27/16 05:55 81 18 178/57 100 09/27/16 04:57 100 18 109/76 100 09/27/16 03:45 102 18 148/79 100 09/27/16 02:48 95 16 146/89 91 L 09/27/16 02:00 95 22 142/82 91 L 09/27/16 00:55 91 20 140/75 91 L 09/27/16 00:00 97.7 F 99 20 163/82 91 L 09/26/16 23:00 97 22 135/91 91 L 09/26/16 22:15 16 95 09/26/16 21:56 97 22 158/101 94 L 09/26/16 21:00 97.7 F 85 19 167/98 91 L 09/26/16 20:05 97.7 F 09/26/16 20:00 88 20 145/90 95 09/26/16 18:57 89 15 141/89 93 L 09/26/16 17:45 91 19 167/91 94 L 09/26/16 16:40 81 09/26/16 16:30 98 F 81 17 140/99 93 L 09/26/16 15:58 97.6 F 09/26/16 15:28 97.4 F L 89 15 126/79 93 L 09/26/16 15:13 97.9 F 70 13 140/80 92 L 09/26/16 15:00 88 20 160/98 97 09/26/16 14:12 97.6 F 92 20 151/108 98 09/26/16 13:51 97.5 F L 71 20 146/100 98 09/26/16 13:50 20 152/98 09/26/16 13:36 97.5 F L 94 14 155/98 99 09/26/16 13:35 141/101 09/26/16 13:32 98 F 89 23 158/100 96 09/26/16 13:20 158/95 09/26/16 13:05 158/95 09/26/16 13:00 94 22 150/95 96 09/26/16 12:50 159/86 09/26/16 12:35 149/91 09/26/16 12:20 157/91 09/26/16 12:05 154/107 Intake and Output 09/26/16 09/27/16 09/27/16 23:59 07:59 15:59 Intake Total 300 / 300 480 / 480 Balance 300 / 300 480 / 480 Intake: Oral 0 / 0 480 / 480 Blood Product 300 / 300 Plasma Unit 300 / 300 [id number] Other: Meal Breakfast Percent of Meal Consumed 100% # Urine Diapers 1 Weight 118 kg Blood Glucose* 104 83 Patient Weight 09/27/16 23:59 Weight 118 kg - General Appearance General appearance: Present: well-developed, well-nourished, appears started age EENT: Present: mucous membranes moist Neck: Present: no JVD Respiratory: Present: clear Cardiology: Present: irregular rhythm Additional Comments: 1+ LE edema Gastrointestinal: Present: normoactive bowel sounds, no tenderness Integumentary: Present: warm and dry Neurologic: Present: alert and oriented x3 Psychiatric: Present: mood/affect appropriate, cooperative - Lab 09/27/16 04:04 09/27/16 04:04 Most recent lab results ABG pH 7.14 pH Units (7.32-7.45) L* 09/23/16 06:54 ABG pCO2 75 mmHg (35-45) H* 09/23/16 06:54 ABG pO2 423 mmHg (85-104) H 09/23/16 06:54 ABG HCO3 25.5 mEQ/L (21-27) 09/23/16 06:54 ABG O2 Saturation 100 % (95-98) H 09/23/16 06:54 Calcium 8.3 mg/dL (8.6-10.8) L 09/27/16 04:04 Phosphorus 5.3 mg/dL (2.3-4.7) H 09/22/16 08:55 Magnesium 1.9 mg/dL (1.6-2.6) 09/22/16 01:58 - VTE Reasons for not Prescribing Prophylaxis: Not indicated-Anticoagulated or INR therapeutic Documentation of Mechanical Device: Intermittent pneumatic compression device Consult Discharge Plan - Plan Referrals: Chilo Lewis Jr, MD [Primary Care Provider] - 10/06/16 9:00 am
[2016-09-28] MEDS ORDERED: Dextromethorphan Polistrx(12h) 30 MG/5 ML UDC PO STA (01:55)
[2016-09-28] MEDS ORDERED: Benzonatate 100 MG CAPSULE PO STA (01:55)
[2016-09-28] MEDS: Chlorhexidine Rinse 15 ML MOUTHWASH MM SCH (06:09)
[2016-09-28] MEDS: Insulin LISPRO 300 UNITS/3 ML VIAL SQ SCH ×3 (07:44→16:51)
[2016-09-28] MEDS: Budesonide/Formoterol 160/4.5 MDI IH SCH (08:04)
[2016-09-28] MEDS ORDERED: Benzonatate 100 MG CAPSULE PO PRN (09:00)
[2016-09-28] MEDS ORDERED: Pantoprazole 40 MG VIAL IVP SCH (09:00)
[2016-09-28] MEDS ORDERED: Diltiazem CD (24hr) 180 MG CAPSULE PO SCH (09:00)
[2016-09-28] MEDS ORDERED: Aspirin 81 MG TAB.CHEW PO SCH (09:00)
--- NOTE | 2016-09-28 09:07 | Discharge Summary ---
Date of Encounter: 09/28/16 Time of Encounter: 09:05 - Discharge Diagnosis (1) Acute respiratory failure with hypoxia Priority: Primary Status: Acute (2) Hemoptysis Priority: Primary Status: Acute (3) Atrial fibrillation Priority: Secondary Status: Chronic Qualifiers: Atrial fibrillation type: chronic Qualified Code(s): I48.2 - Chronic atrial fibrillation (4) CAD (coronary artery disease) Priority: Secondary Status: Chronic Qualifiers: Coronary Disease-Associated Artery/Lesion type: [place] artery [place] vs. transplanted heart: [place] heart Associated angina: without angina Qualified Code(s): I25.10 - Atherosclerotic heart disease of [place] coronary artery without angina pectoris (5) End-stage renal disease Priority: Secondary Status: Chronic (6) Type 2 diabetes mellitus Priority: Secondary Status: Chronic Qualifiers: Diabetes mellitus complication status: with kidney complications Diabetes mellitus complication detail: with chronic kidney disease Diabetes mellitus halfway insulin use: unspecified halfway insulin use status Chronic kidney disease stage: on chronic dialysis Qualified Code(s): E11.22 - Type 2 diabetes mellitus with diabetic chronic kidney disease; N18.6 - End stage renal disease (7) Acute respiratory failure with hypoxia Priority: Primary Status: Resolved (8) Cardiopulmonary arrest Priority: Primary Status: Resolved (9) Pancreatitis Priority: Secondary Status: Acute Qualifiers: Chronicity: acute Pancreatitis type: unspecified pancreatitis type Acute pancreatitis complication: unspecified Qualified Code(s): K85.90 - Acute pancreatitis without necrosis or infection, unspecified (10) Tobacco abuse Priority: Secondary Status: Chronic - Discharge Medications Prescriptions: Diltiazem CD (24hr) [Cardizem CD] 180 mg PO DAILY #30 cap.er.24h Losartan [Cozaar] 100 mg PO DAILY #30 tablet Oxycodone HCl 15 mg PO Q6H PRN #20 tablet PRN Reason: pain Home Medications: Carvedilol [Coreg] 25 mg PO DAILY 09/08/15 [History] CloNIDine HCl 0.1 mg PO QAM 09/08/15 [History] Ipratropium/Albuterol Sulfate [Combivent Respimat Inhal [place]] 4 gm IH 2-4XD PRN #2 aer.w.adap 11/28/15 [Rx] Albuterol Neb [AccuNeb] 1.25 mg IH Q4H PRN 09/21/16 [History] Amlodipine [Norvasc] 5 mg PO DAILY 09/22/16 [History] Budesonide/Formoterol 160/4.5 [Symbicort 160/4.5] 2 puff IH BIDR 09/22/16 [ History] Cetirizine HCl/Pseudoephedrine [Cetirizine-Pse ER 5-120 mg Tab] 1 each PO DAILY 09/22/16 [History] Cinacalcet [Sensipar] 30 mg PO DAILY 09/22/16 [History] Guaifenesin/Codeine Phosphate [Guaiatussin AC Liquid] 10 ml PO Q4H PRN 09/22/16 [History] Ipratropium Neb [Atrovent Neb] 0.5 mg IH Q6HR 09/22/16 [History] Loperamide [Imodium] 2 mg PO Q4HR PRN 09/22/16 [History] Omeprazole [PriLOSEC] 20 mg PO DAILY 09/22/16 [History] Sildenafil Citrate [Viagra] 50 mg PO DAILY PRN 09/22/16 [History] Tadalafil [Cialis] 20 mg PO DAILY 09/22/16 [History] Aspirin 81 mg PO DAILY #0 tab.chew 09/28/16 [Rx] Diltiazem CD (24hr) [Cardizem CD] 180 mg PO DAILY #30 cap.er.24h 09/28/16 [Rx] LORazepam [Ativan] 0.5 mg PO BID PRN #20 09/28/16 [Rx] Losartan [Cozaar] 100 mg PO DAILY #30 tablet 09/28/16 [Rx] Oxycodone HCl 15 mg PO Q6H PRN #20 tablet 09/28/16 [Rx] Allergies/Adverse Reactions: Allergies rofecoxib [From Vioxx] Allergy (Verified 11/26/15 17:21) Swelling of Lip/Tongue/Throat Procedures/tests Complete & Pending: Procedures Performed prior 72 hours Category Date Time Status CT abd pelvis wo no iv no oral [CT] Stat Cat Scan 09/26/16 08:[address] chest w/o contrast [CT chest wo con] [CT] Stat Cat Scan 09/26/16 08:35 Completed Date of admission: 09/22/16 05:02 Primary care physician: Chilo Lewis Jr, MD Consults: 09/22/16 08:15 Consult to Dialysis [CONS] ONCE 09/23/16 07:30 Consult to Dialysis [CONS] ONCE 09/23/16 08:05 Consult to Cardiology [CONS] Routine Comment: Consulting Provider: Cardiology [place] Reason for Consult: cardiopulmonary arrest Call Completed: Yes 09/24/16 07:49 Consult to Critical Care [CONS] Stat Consulting Provider: [facility] [place] Reason for Consult: Acute respirator faiure, s/p cardiac arrest, intubated. Call Completed: Yes 09/26/16 04:07 Consult to Pulmonology [CONS] Stat Consulting Provider: [facility] [place] Reason for Consult: Hemoptysis Call Completed: Yes 09/26/16 09:45 Consult to Dialysis [CONS] ONCE 09/28/16 09:04 Consult to Occupational Therapy [CONS] Stat Comment: Evaluate, develop and implement POC Consult to Physical Therapy [CONS] Stat Comment: Evaluate, develop and implement POC - Patient Status Disposition: Home Health Service Condition: Good - Discharge Instructions Follow Up With: Chilo Lewis Jr, MD [Primary Care Provider] - 10/06/16 9:00 am Forms: ED Satisfaction Letter Additional Instructions: Follow with primary care physician within the next 7 days. Continue with dialysis. Hold Coumadin for one month to reevaluate with primary care physician the need of anticoagulation. Continue baby aspirin 1 mg daily for now. Follow with pulmonary within the next 2 weeks. Avoid volume overload - Diet and Activity Activity: increase activity as tolerated Diet: other (Renal diet) Hospital course: Mr. Hernandez is a 70 year old male who presented to the hospital on 09/21/16 for hypoxia, A-fib with RVR on warfarin , COPD exacerbation, and ESRD non- compliance with dialysis. He was admitted to the hospital. Apparently was in rate controlled A-fib since. Troponin initially .10 and went down to 0.08. Appeared to be non- compliant with medications and dialysis. Become SOB and altered and went into apparent PEA arrest around 06:30 on 09/23/16. Initially suspected to be 2/2 hyperkalemia. Had ROSC after 2 rounds of Epi and was initially bradycardic. Patient was then given 1mg Atropine. Was also intubated during arrest. Developed hemoptysis, Bronchoscopy on 09/26/16 revealed submucosal hemorrhage throughout tracheobronchial tree, petechiae, clot, and no active bleeding. Following 4 Units FFP as INR was 4.4. Sputum culture from 09/24/16 revealed stenotrophomonas maltophilia sensitive to levaquin and bactrim. Also, another sample was positive for Klebsiella but the patient did not receive any antibiotics during his hospitalization and has been improving. He mentions that his secretions are clear, has not developed any fever. White blood cell count is normal. CT scan of the abdomen showed possible pancreatitis but the patient's lipase is only 120 and his knuckle complain of any epigastric pain/his not symptomatic. CT scan of the chest showed bilateral pleural effusions with possible pneumonitis/edema. Hemoptysis likely secondary to elevated INR from coumadin therapy. Patient has a history of chronic afib with MELONIE-VASC of 3. Due to history of hemoptysis and findings on bronchoscopy, at this time it is recommended to hold coumadin and reevaluate for reinitiation of coumadin in 1 month. Continue anticoagulation with aspirin as per Pulmonary. The patient was given the option to stay an additional day of the moment but he is very stable and feels comfortable going home and is requesting home health services. She will have dialysis later today. - Time Spent with Patient Total time spent providing and/or coordinating discharge services: Greater than 30 minutes (45 minutes) - Constitutional Vitals: Temp Pulse Resp BP Pulse Ox 97.6 F 89 16 179/83 95 09/28/16 06:44 09/28/16 06:44 09/28/16 08:04 09/28/16 06:44 09/28/16 08:04 General appearance: Present: A&O X 3, pleasant, no acute distress - Head Head exam: Present: atraumatic, normocephalic - Eye Eye exam: Present: PERRL, conjuntiva pink, sclera anicteric Pupils: Present: PERRL - Neck Neck exam general surgery: Present: supple, trachea midline. Absent: lymphadenopathy - Respiratory Respiratory exam: Present: CTAB, rales (Fine bibasilar crackles). Absent: accessory muscle use, rhonchi, wheezes - Cardiovascular Cardiovascular exam: Present: RRR, +S1, +S2. Absent: diastolic murmur, gallop, rubs, systolic murmur - GI/Abdominal GI/Abdominal exam: Present: normal bowel sounds, soft, no peritoneal signs. Absent: distended, tenderness - Extremities Exam Extremities exam: Present: warm, radial pulses palpable and symetrical. Absent : calf tenderness, cyanotic, pedal edema Additional comments: +1 pitting edema in both lower extremities AV fistula in the right proximal upper extremity with good thrill - Neurological Exam Neurological exam: Present: CN II-XII intact, oriented X3, no focal deficits. Absent: pronater drift, facial droop, speech deficit - Skin Skin exam: Present: dry, intact - VTE Reasons for not Prescribing Prophylaxis: Not indicated-Anticoagulated or INR therapeutic Documentation of Mechanical Device: Intermittent pneumatic compression device
--- NOTE | 2016-09-28 09:24 | Physician Discharge Referral ---
Home Health/Hosp Referral Info Transfer to: Home Health Provider in Charge Post Discharge: PCP - Diagnosis (1) Acute respiratory failure with hypoxia Priority: Primary Status: Acute (2) Hemoptysis Priority: Primary Status: Acute (3) Atrial fibrillation Priority: Secondary Status: Chronic (4) CAD (coronary artery disease) Priority: Secondary Status: Chronic (5) End-stage renal disease Priority: Secondary Status: Chronic (6) Type 2 diabetes mellitus Priority: Secondary Status: Resolved (7) Acute respiratory failure with hypoxia Priority: Primary Status: Resolved (8) Cardiopulmonary arrest Priority: Primary Status: Resolved (9) Pancreatitis Priority: Secondary Status: Acute (10) Tobacco abuse Priority: Secondary Status: Chronic - Respiratory Orders Smoking Cessation: Smoking cessation has been advised. For more information, call the [employer] Quit Line at 5-719-ZCFN-NOW. - Diet/Nutrition Diet/Nutrition Orders: Renal - Services Needed Following services are medically necessary services: Home Health Aide, Physical Therapy, Occupational Therapy Home Care Orders: Follow with primary care physician within the next 7 days. Continue with dialysis. Hold Coumadin for one month to reevaluate with primary care physician the need of anticoagulation. Continue baby aspirin 1 mg daily for now. Follow with pulmonary within the next 2 weeks. Avoid volume overload - Transfer Medications Prescriptions: Diltiazem CD (24hr) [Cardizem CD] 180 mg PO DAILY #30 cap.er.24h Losartan [Cozaar] 100 mg PO DAILY #30 tablet Oxycodone HCl 15 mg PO Q6H PRN #20 tablet PRN Reason: pain Home Medications: Carvedilol [Coreg] 25 mg PO DAILY 09/08/15 [History] CloNIDine HCl 0.1 mg PO QAM 09/08/15 [History] Ipratropium/Albuterol Sulfate [Combivent Respimat Inhal [place]] 4 gm IH 2-4XD PRN #2 aer.w.adap 11/28/15 [Rx] Albuterol Neb [AccuNeb] 1.25 mg IH Q4H PRN 09/21/16 [History] Amlodipine [Norvasc] 5 mg PO DAILY 09/22/16 [History] Budesonide/Formoterol 160/4.5 [Symbicort 160/4.5] 2 puff IH BIDR 09/22/16 [ History] Cetirizine HCl/Pseudoephedrine [Cetirizine-Pse ER 5-120 mg Tab] 1 each PO DAILY 09/22/16 [History] Cinacalcet [Sensipar] 30 mg PO DAILY 09/22/16 [History] Guaifenesin/Codeine Phosphate [Guaiatussin AC Liquid] 10 ml PO Q4H PRN 09/22/16 [History] Ipratropium Neb [Atrovent Neb] 0.5 mg IH Q6HR 09/22/16 [History] Loperamide [Imodium] 2 mg PO Q4HR PRN 09/22/16 [History] Omeprazole [PriLOSEC] 20 mg PO DAILY 09/22/16 [History] Sildenafil Citrate [Viagra] 50 mg PO DAILY PRN 09/22/16 [History] Tadalafil [Cialis] 20 mg PO DAILY 09/22/16 [History] Aspirin 81 mg PO DAILY #0 tab.chew 09/28/16 [Rx] Diltiazem CD (24hr) [Cardizem CD] 180 mg PO DAILY #30 cap.er.24h 09/28/16 [Rx] LORazepam [Ativan] 0.5 mg PO BID PRN #20 09/28/16 [Rx] Losartan [Cozaar] 100 mg PO DAILY #30 tablet 09/28/16 [Rx] Oxycodone HCl 15 mg PO Q6H PRN #20 tablet 09/28/16 [Rx] Allergies/Adverse Reactions: Allergies rofecoxib [From Vioxx] Allergy (Verified 11/26/15 17:21) Swelling of Lip/Tongue/Throat Certification: Further, I certify that my clinical findings support that this patient is homebound (i.e. absences from home require considerable and taxing effort and are for medical reasons or latter day services or infrequently or short duration when for other reasons) because: Homebound Reason: Patient requires assistance of a person or device to safely leave home Attestation: My signature below is to certify that this patient is under my care and that I, or nurse practitioner, or a physician's clinical laboratory assistant working with me, has a face-to -face encounter with this patient.
--- NOTE | 2016-09-28 09:26 | Nephrology Progress Note ---
Date of Encounter: 09/28/16 Time of Encounter: 09:00 - Assessment and Plan (1) End-stage renal disease Current Visit: Yes Status: Chronic Improving fluid status. Will do HD today, keeping MWF schedule. Consult social work to eval for possible rehab Subjective Principal diagnosis: Acute respiratory failure with hypoxia, hemoptysis Interval history: Sitting on edge of bed. States breathing much easier. Concerned about getting to and from outpatient dialysis, does not feel able to drive self and has no one to transport. Objective - Vital Signs Vital signs: Vital Signs Temp Pulse Resp BP Pulse Ox 09/28/16 08:04 16 95 09/28/16 06:44 97.6 F 89 18 179/83 97 09/28/16 04:54 97.8 F 102 18 168/80 96 09/27/16 22:32 97.5 F L 108 22 151/78 93 L 09/27/16 22:15 82 L 09/27/16 20:52 94 09/27/16 20:30 97.7 F 102 22 196/95 93 L 09/27/16 14:51 97.6 F 106 18 158/75 96 09/27/16 12:00 104 18 160/90 100 09/27/16 11:15 98.4 F 09/27/16 11:00 97 Intake and Output 09/27/16 09/28/16 09/28/16 23:59 07:59 15:59 Intake Total 360 / 360 Output Total 400 / 400 Balance 360 / 360 -400 / -400 Intake: Oral 360 / 360 Output: Urine 400 / 400 Other: Meal Dinner Breakfast Percent of Meal Consumed 100% 100% Blood Glucose* 136 110 - General Appearance General appearance: Present: well-developed, well-nourished, appears started age EENT: Present: mucous membranes moist Neck: Present: no JVD Respiratory: Present: course breath sounds Cardiology: Present: regular rate, regular rhythm, irregular rhythm Additional Comments: 1-2+ edema knees down Gastrointestinal: Present: normoactive bowel sounds, no tenderness Integumentary: Present: warm and dry Neurologic: Present: alert and oriented x3 Psychiatric: Present: mood/affect appropriate, cooperative - Lab 09/27/16 04:04 09/27/16 04:04 Most recent lab results ABG pH 7.14 pH Units (7.32-7.45) L* 09/23/16 06:54 ABG pCO2 75 mmHg (35-45) H* 09/23/16 06:54 ABG pO2 423 mmHg (85-104) H 09/23/16 06:54 ABG HCO3 25.5 mEQ/L (21-27) 09/23/16 06:54 ABG O2 Saturation 100 % (95-98) H 09/23/16 06:54 Calcium 8.3 mg/dL (8.6-10.8) L 09/27/16 04:04 Phosphorus 5.3 mg/dL (2.3-4.7) H 09/22/16 08:55 Magnesium 1.9 mg/dL (1.6-2.6) 09/22/16 01:58 - VTE Reasons for not Prescribing Prophylaxis: Not indicated-Anticoagulated or INR therapeutic Documentation of Mechanical Device: Intermittent pneumatic compression device Consult Discharge Plan - Plan Additional Instructions: Follow with primary care physician within the next 7 days. Continue with dialysis. Hold Coumadin for one month to reevaluate with primary care physician the need of anticoagulation. Continue baby aspirin 1 mg daily for now. Follow with pulmonary within the next 2 weeks. Avoid volume overload Referrals: Chilo Lewis Jr, MD [Primary Care Provider] - 10/06/16 9:00 am Prescriptions: Diltiazem CD (24hr) [Cardizem CD] 180 mg PO DAILY #30 cap.er.24h Losartan [Cozaar] 100 mg PO DAILY #30 tablet Oxycodone HCl 15 mg PO Q6H PRN #20 tablet PRN Reason: pain
[2016-09-28] MEDS ORDERED: 0.9 % Sodium Chloride 250 ML IV PRN (09:30)
[2016-09-28 10:20] LABS: Hematocrit 34.5 % (37.5-50.1); Mean Corpuscular HGB Conc 31.9 g/dL (31.6-35.5); Mean Corpuscular Hemoglobin 26.8 pg (28.0-33.3); Mean Corpuscular Volume 84.1 fL (83.0-100.0); Mean Platelet Volume 10.5 fL (9.4-12.4); Platelet Count 121 K/mcL (140-400); Red Cell Distribution Width 18.7 % (11.5-14.5)
[2016-09-28 10:32] LABS: Calcium 8.3 mg/dL (8.6-10.8)
[2016-09-28] MEDS ORDERED: 0.9 % Sodium Chloride 2,000 ML ONE ×2 (14:15→18:49)
[2016-09-28] MEDS ORDERED: *HR* HYDROcodone/Acet 7.5/325 mg TABLET PO PRN (14:44)
--- NOTE | 2016-09-28 15:12 | Physician Discharge Referral ---
ExtendedCare Referral Info Provider in Charge after Transfer: PCP Institutional Level of Care: Skilled - Diagnosis (1) Acute respiratory failure with hypoxia Status: Acute (2) Hemoptysis Status: Acute (3) Atrial fibrillation Status: Chronic (4) CAD (coronary artery disease) Status: Chronic (5) End-stage renal disease Status: Chronic (6) Type 2 diabetes mellitus Status: Resolved (7) Acute respiratory failure with hypoxia Status: Resolved (8) Cardiopulmonary arrest Status: Resolved (9) Pancreatitis Status: Acute (10) Tobacco abuse Status: Chronic - Transfer Medications Prescriptions: Diltiazem CD (24hr) [Cardizem CD] 180 mg PO DAILY #30 cap.er.24h Losartan [Cozaar] 100 mg PO DAILY #30 tablet Oxycodone HCl 15 mg PO Q6H PRN #20 tablet PRN Reason: pain Home Medications: Carvedilol [Coreg] 25 mg PO DAILY 09/08/15 [History] CloNIDine HCl 0.1 mg PO QAM 09/08/15 [History] Ipratropium/Albuterol Sulfate [Combivent Respimat Inhal [place]] 4 gm IH 2-4XD PRN #2 aer.w.adap 11/28/15 [Rx] Albuterol Neb [AccuNeb] 1.25 mg IH Q4H PRN 09/21/16 [History] Amlodipine [Norvasc] 5 mg PO DAILY 09/22/16 [History] Budesonide/Formoterol 160/4.5 [Symbicort 160/4.5] 2 puff IH BIDR 09/22/16 [ History] Cetirizine HCl/Pseudoephedrine [Cetirizine-Pse ER 5-120 mg Tab] 1 each PO DAILY 09/22/16 [History] Cinacalcet [Sensipar] 30 mg PO DAILY 09/22/16 [History] Guaifenesin/Codeine Phosphate [Guaiatussin AC Liquid] 10 ml PO Q4H PRN 09/22/16 [History] Ipratropium Neb [Atrovent Neb] 0.5 mg IH Q6HR 09/22/16 [History] Loperamide [Imodium] 2 mg PO Q4HR PRN 09/22/16 [History] Omeprazole [PriLOSEC] 20 mg PO DAILY 09/22/16 [History] Sildenafil Citrate [Viagra] 50 mg PO DAILY PRN 09/22/16 [History] Tadalafil [Cialis] 20 mg PO DAILY 09/22/16 [History] Aspirin 81 mg PO DAILY #0 tab.chew 09/28/16 [Rx] Diltiazem CD (24hr) [Cardizem CD] 180 mg PO DAILY #30 cap.er.24h 09/28/16 [Rx] LORazepam [Ativan] 0.5 mg PO BID PRN #20 09/28/16 [Rx] Losartan [Cozaar] 100 mg PO DAILY #30 tablet 09/28/16 [Rx] Oxycodone HCl 15 mg PO Q6H PRN #20 tablet 09/28/16 [Rx] Allergies/Adverse Reactions: Allergies rofecoxib [From Vioxx] Allergy (Verified 11/26/15 17:21) Swelling of Lip/Tongue/Throat - Respiratory Orders Smoking Cessation: Smoking cessation has been advised. For more information, call the [place] [employer] Quit Line at 9-045-GOTO-NOW. - Advance Directives Code Status: Full Code - Treatments List/Other: Follow with primary care physician within the next 7 days. Continue with dialysis. Hold Coumadin for one month to reevaluate with primary care physician the need of anticoagulation. Continue baby aspirin 1 mg daily for now. Follow with pulmonary within the next 2 weeks. Avoid volume overload - Diet Orders Renal CERTIFICATION: I certify that the transfer of the above named patient to an Extended Care Facility is necessary for the continuing treatment of the diagnosis listed. The above information is true and accurate reflection of patient's current condition. Confidential - Redisclosure prohibited without a patient's written consent.
[2016-09-28 19:07] VITALS: BP 191/97
== END 2016-09-28 19:50 | disposition home health service (06) | DRG 640 ==
LOC: EMEROO 15:08 → 2ANU 15:08 → SUATTDRO 09-22 05:02 → 2ANU 09-22 06:55 → ICNU 09-23 07:20 → 2ANU 09-25 10:44 → ICNU 09-26 05:01 → 2ANU 09-27 14:42
PROVIDERS: ADMIT Internal Medicine; ATTEND Internal Medicine

== ENCOUNTER 2016-12-14 19:25 | Observation (INO) ==
[2016-12-14] MEDS ORDERED: methylPREDNISolone 125 MG/2 ML VIAL IVP ONE (19:27)
[2016-12-14] MEDS ORDERED: Ipratropium/Albuterol Neb 3 ML IH ONE (19:27)
--- NOTE | 2016-12-14 19:28 | Emergency Department Note ---
Disposition Clinical Impression: Acute exacerbation of chronic obstructive airways disease, Congestive heart failure, Pneumonia, Hypoxia Disposition: Admitted As Inpatient Condition: Good Referrals: Chilo Lewis Jr, MD [Primary Care Provider] - Forms: ED Satisfaction Letter General Adult HPI - General Chief complaint: ED Shortness of Breath/Dyspnea Stated complaint: JESENIA Time Seen by Provider: 12/14/16 19:26 - Related Data Home Medications Medication Instructions Recorded Confirmed Carvedilol [Coreg] 25 mg PO BID 09/08/15 12/14/16 CloNIDine HCl 0.1 mg PO QAM 09/08/15 12/14/16 Albuterol Neb [AccuNeb] 1.25 mg IH Q4H PRN 09/21/16 12/14/16 Amlodipine [Norvasc] 5 mg PO DAILY 09/22/16 12/14/16 Budesonide/Formoterol 160/4.5 2 puff IH BIDR 09/22/16 12/14/16 [Symbicort 160/4.5] Cinacalcet [Sensipar] 30 mg PO DAILY 09/22/16 12/14/16 Omeprazole [PriLOSEC] 20 mg PO DAILY 09/22/16 12/14/16 Calcitriol 0.5 mcg PO DAILY 12/14/16 12/14/16 Ipratropium/Albuterol Sulfate 4 gm IH QID PRN 12/14/16 12/14/16 [Combivent Respimat Inhal [place]] Losartan [Cozaar] 50 mg PO BID 12/14/16 12/14/16 Previous Rx's Medication Instructions Recorded Aspirin 81 mg PO DAILY #0 tab.chew 09/28/16 LORazepam [Ativan] 0.5 mg PO BID PRN #20 09/28/16 Oxycodone HCl 15 mg PO Q6H PRN #20 tablet 09/28/16 Allergies Allergy/AdvReac Type Severity Reaction Status Date / Time rofecoxib [From Vioxx] Allergy Swelling Verified 11/20/16 01:50 of Lip/Tongue/Throat Past Medical History - Past Medical History Medical history: Reports: aortic aneurysm, diabetes, dialysis, hypertension, renal disease, other Surgical history: Reports: angioplasty/stent (x3), cholecystectomy, other (AAA repair, left knee surgery.) Psychiatric history: Reports: no psych history - Social History Smoking Status: Current every day smoker Smokeless Tobacco Status: No Alcohol use: Reports: none Drug use: Reports: none Course Vital Signs Temperature 98.2 F 12/14/16 19:34 Pulse Rate 109 12/14/16 19:34 Respiratory Rate 20 12/14/16 19:34 Blood Pressure 136/91 12/14/16 19:34 O2 Sat by Pulse Oximetry 91 12/14/16 19:34 Temperature 98.2 F 12/14/16 19:34 Pulse Rate 109 12/14/16 19:34 Respiratory Rate 16 12/14/16 19:40 Blood Pressure 136/91 12/14/16 19:34 O2 Sat by Pulse Oximetry 92 12/14/16 19:40 Oxygen Delivery Oxygen Delivery Nasal Cannula Medical Decision Making - Lab Data Result diagrams: 12/14/16 21:27 12/14/16 21:27 Lab Results 12/14/16 12/14/16 12/14/16 Range/Units 21:27 21:27 21:27 WBC 7.1 (4.3-11.1) K/mcL RBC 4.45 (4.19-5.50) M/mcL Hgb 12.3 L (12.9-16.9) g/dL Hct 39.8 (37.5-50.1) % MCV 89.4 (83.0-100.0) fL MCH 27.6 L (28.0-33.3) pg MCHC 30.9 L (31.6-35.5) g/dL RDW 19.2 H (11.5-14.5) % Plt Count 118 L (140-400) K/mcL MPV 11.2 (9.4-12.4) fL Immature Gran % 0.7 (0-4) % Seg Neutrophils % 81.3 % Lymphocytes % 11.5 % Monocytes % 4.4 % Eosinophils % 1.7 % Basophils % 0.4 % Neutrophils # 5.7 (1.6-8.9) K/mcL Lymphocytes # 0.8 (0.6-4.6) K/mcL Monocytes # 0.3 (0.0-1.3) K/mcL Eosinophils # 0.1 (0.0-0.6) K/mcL Basophils # 0.0 (0.0-0.2) K/mcL PT 13.0 H (9.4-12.1) Seconds INR 1.2 APTT 33.3 (26.0-36.0) Seconds D-Dimer 2274 H (0-500) ng/mLFEU Sodium (136-145) mEq/L Potassium (3.5-4.5) mEq/L Chloride (98-109) mEq/L Carbon Dioxide (19-29) mEq/L BUN (8-26) mg/dL Creatinine (0.72-1.25) mg/dL Est GFR ( Amer) (> 60) Est GFR (Non-Af Amer) (> 60) BUN/Creatinine Ratio (6-26) Glucose (70-99) mg/dL Calculated Osmolality (280-300) Calcium (8.6-10.8) mg/dL Troponin I (0-0.03) ng/mL B-Natriuretic Peptide 2064 H (0-100) pg/mL 12/14/16 12/14/16 Range/Units 21:27 21:27 WBC (4.3-11.1) K/mcL RBC (4.19-5.50) M/mcL Hgb (12.9-16.9) g/dL Hct (37.5-50.1) % MCV (83.0-100.0) fL MCH (28.0-33.3) pg MCHC (31.6-35.5) g/dL RDW (11.5-14.5) % Plt Count (140-400) K/mcL MPV (9.4-12.4) fL Immature Gran % (0-4) % Seg Neutrophils % % Lymphocytes % % Monocytes % % Eosinophils % % Basophils % % Neutrophils # (1.6-8.9) K/mcL Lymphocytes # (0.6-4.6) K/mcL Monocytes # (0.0-1.3) K/mcL Eosinophils # (0.0-0.6) K/mcL Basophils # (0.0-0.2) K/mcL PT (9.4-12.1) Seconds INR APTT (26.0-36.0) Seconds D-Dimer (0-500) ng/mLFEU Sodium 139 (136-145) mEq/L Potassium 4.7 H (3.5-4.5) mEq/L Chloride 97 L (98-109) mEq/L Carbon Dioxide 32 H (19-29) mEq/L BUN 27 H (8-26) mg/dL Creatinine 3.91 H (0.72-1.25) mg/dL Est GFR ( Amer) 19 L (> 60) Est GFR (Non-Af Amer) 15 L (> 60) BUN/Creatinine Ratio 7 (6-26) Glucose 119 H (70-99) mg/dL Calculated Osmolality 294 (280-300) Calcium 9.7 (8.6-10.8) mg/dL Troponin I 0.12 H* (0-0.03) ng/mL B-Natriuretic Peptide (0-100) pg/mL Attestation Statement - Attestation Attestation: I examined this patient and my medical decision-making was reviewed with the [employer] FLEX DEVELOPER/PA/Advanced Practice Nurse/Resident Physician. I agree with the documented findings, disposition and treatment plan as described except to the extent set forth below. [id number] time provided Patient presents via EMS with dyspnea. He has a history of COPD that is non- oxygen dependent. He was hypoxic prehospital. Appears in no acute distress on exam
--- NOTE | 2016-12-14 20:01 | Emergency Department Note ---
Disposition Clinical Impression: Acute exacerbation of chronic obstructive airways disease, Hypoxia Congestive heart failure Qualifiers: Congestive heart failure type: unspecified congestive heart failure type Congestive heart failure chronicity: acute on chronic Qualified Code(s): I50.9 - Heart failure, unspecified Pneumonia Qualifiers: Pneumonia type: due to unspecified organism Laterality: unspecified laterality Lung location: unspecified part of lung Qualified Code(s): J18.9 - Pneumonia, unspecified organism Disposition: Admitted As Inpatient Condition: Good Referrals: Chilo Lewis Jr, MD [Primary Care Provider] - Forms: ED Satisfaction Letter Time of Disposition: 22:27 SOB HPI - General Chief Complaint: ED Shortness of Breath/Dyspnea Stated Complaint: JESENIA Time Seen by Provider: 12/14/16 19:26 Source: patient, EMS Limitations: no limitations Nursing Notes Reviewed: Yes Vital Signs Reviewed: Yes - History of Present Illness 71 year old male with HX of non-dependent COPD who has had increased use of breathing treatments and inhalers at home over the past two days. Ethan states that he became dyspneic and called the squad and on arrival ethan had a pulse ox of 77%. On room air in the deparment he has a o2 saturation of 85-87 % and once he has been placed on oxygen comes back up to 90%. Patient denies fevers, chest pain, abdominal pain, nausea, vomitting, or UTI symptoms. Ethan states the last time he was admitted to the hospital it was over 2 months ago for a volume overload that required a ICU admission due to acute respiraotory failure in addition to having hemoptysis due to coumadin therapy for atrial fibrillation. Patient denies hemoptysis at this time. Ethan is dyspniec and hypoxic at rest. - Related Data Home Medications Medication Instructions Recorded Confirmed Carvedilol [Coreg] 25 mg PO BID 09/08/15 12/14/16 CloNIDine HCl 0.1 mg PO QAM 09/08/15 12/14/16 Albuterol Neb [AccuNeb] 1.25 mg IH Q4H PRN 09/21/16 12/14/16 Amlodipine [Norvasc] 5 mg PO DAILY 09/22/16 12/14/16 Budesonide/Formoterol 160/4.5 2 puff IH BIDR 09/22/16 12/14/16 [Symbicort 160/4.5] Cinacalcet [Sensipar] 30 mg PO DAILY 09/22/16 12/14/16 Omeprazole [PriLOSEC] 20 mg PO DAILY 09/22/16 12/14/16 Calcitriol 0.5 mcg PO DAILY 12/14/16 12/14/16 Ipratropium/Albuterol Sulfate 4 gm IH QID PRN 12/14/16 12/14/16 [Combivent Respimat Inhal [place]] Losartan [Cozaar] 50 mg PO BID 12/14/16 12/14/16 Previous Rx's Medication Instructions Recorded Aspirin 81 mg PO DAILY #0 tab.chew 09/28/16 LORazepam [Ativan] 0.5 mg PO BID PRN #20 09/28/16 Oxycodone HCl 15 mg PO Q6H PRN #20 tablet 09/28/16 Allergies Allergy/AdvReac Type Severity Reaction Status Date / Time rofecoxib [From Vioxx] Allergy Swelling Verified 11/20/16 01:50 of Lip/Tongue/Throat Constitutional: Denies: fever, chills, weakness, weight change Eyes: Denies: eye pain, eye discharge, vision change ENT ED: Denies: ear pain, throat pain, dental pain, hearing loss, epistaxis, congestion, dysphagia Cardiovascular: Reports: palpitations, dyspnea on exertion. Denies: chest pain , edema, syncope Respiratory: Denies: cough, dyspnea, wheezes, hemoptysis, stridor Gastrointestinal: Denies: abdominal pain, nausea, vomiting, diarrhea, constipation, hematemesis, melena, hematochezia Genitourinary: Denies: urgency, dysuria, frequency, hematuria Musculoskeletal: Denies: back pain, neck pain, arthralgia, myalgia Integumentary: Denies: rash, abrasion, lesions Neurological: Denies: headache, weakness, numbness, paresthesias, confusion, abnormal gait, vertigo Psychiatric: Denies: anxiety, depression, suicidal thoughts, homicidal thoughts , auditory hallucinations, visual hallucinations Endocrine: Denies: fatigue Hematological/Lymphatic: Denies: easy bleeding, easy bruising Allergic/Immunologic: Denies: facial swelling, urticaria Past Medical History - Past Medical History Medical history: Reports: aortic aneurysm, diabetes, dialysis, hypertension, renal disease, other Surgical history: Reports: angioplasty/stent (x3), cholecystectomy, other (AAA repair, left knee surgery.) Psychiatric history: Reports: no psych history - Social History Smoking Status: Current every day smoker Smokeless Tobacco Status: No Alcohol use: Reports: none Drug use: Reports: none Physical Exam - General Limitations: no limitations General appearance: alert, in no apparent distress - Head Head exam: atraumatic, normocephalic, normal inspection - Eye Eye exam: Present: normal appearance, PERRL, EOMI - Expanded Eye Exam Pupils: Left: reactive - ENT ENT exam: normal exam, normal oropharynx, mucous membranes moist - Expanded ENT Exam External ear exam: Present: normal external inspection Mouth exam: Present: normal external inspection Teeth exam: Present: normal inspection Throat exam: Present: normal inspection - Neck Neck exam: Present: normal inspection, full ROM, trachea midline - Chest Chest inspection: Present: normal inspection, symmetric chest wall rise - Respiratory Respiratory exam: Present: wheezes (mild anterior bilateral) - Cardiovascular Cardiovascular exam: Present: regular rate, normal rhythm, normal heart sounds - Abdominal Exam Abdominal exam: Present: soft, Non-Tender. Absent: tenderness, distention, guarding, rebound, rigidity - Extremities Exam Extremities exam: Present: normal inspection, full ROM. Absent: tenderness, pedal edema - Expanded Upper Extremity Exam Shoulder exam: Present: normal inspection, full ROM Arm exam: Present: normal inspection, full ROM Elbow exam: Present: normal inspection, full ROM Forearm/Wrist exam: Present: normal inspection, full ROM Hand exam: Present: normal inspection, full ROM Vascular exam: Normal: capillary refill, radial pulse - Expanded Lower Extremity Exam Hip/Pelvis exam: Present: normal inspection, full ROM Upper leg exam: Present: normal inspection, full ROM Knee exam: Present: normal inspection, full ROM Lower leg exam: Present: normal inspection, full ROM Ankle exam: Present: normal inspection, full ROM Foot/toe exam: Present: normal inspection, full ROM Neurovascular/Tendon exam: Absent: motor deficit, sensory deficit, tendon deficit - Back Exam Back exam: Present: normal inspection, full ROM. Absent: tenderness - Neurological Exam Neurological exam: Present: alert, oriented X3 - Expanded Neurological Exam Patient oriented to: Present: person, place, time Coma Scale Eye Opening: Spontaneous Coma Scale Motor Response: Obeys Commands Coma Scale Verbal Response: Oriented Coma Scale Total: 15 - Psychiatric Psychiatric exam: Present: normal affect, normal mood - Skin Skin exam: Present: warm, dry, intact, normal color Course Course Narrative: we will do a COPD/CHF workup on patient and likely admit due to hypoxia. breathing treatments and steroid therapy. - Reevaluation(s) Reevaluation #1: we will start ABX due to recent hospitalization and possible consolidation in lung bases Time: 21:23 - Consultations Consultation #1: discussed case with Dr. Carroll and she accepts patient to the service. Time: 22:26 Vital Signs Temperature 98.2 F 12/14/16 19:34 Pulse Rate 109 12/14/16 19:34 Respiratory Rate 20 12/14/16 19:34 Blood Pressure 136/91 12/14/16 19:34 O2 Sat by Pulse Oximetry 91 12/14/16 19:34 Temperature 98.2 F 12/14/16 19:34 Pulse Rate 109 12/14/16 19:34 Respiratory Rate 16 12/14/16 19:40 Blood Pressure 136/91 12/14/16 19:34 O2 Sat by Pulse Oximetry 92 12/14/16 19:40 Oxygen Delivery Oxygen Delivery Nasal Cannula Shortness of Breath/Dyspnea - Lab Data Result diagrams: 12/14/16 21:27 12/14/16 21:27 Lab Results 12/14/16 12/14/16 12/14/16 Range/Units 21:27 21:27 21:27 WBC 7.1 (4.3-11.1) K/mcL RBC 4.45 (4.19-5.50) M/mcL Hgb 12.3 L (12.9-16.9) g/dL Hct 39.8 (37.5-50.1) % MCV 89.4 (83.0-100.0) fL MCH 27.6 L (28.0-33.3) pg MCHC 30.9 L (31.6-35.5) g/dL RDW 19.2 H (11.5-14.5) % Plt Count 118 L (140-400) K/mcL MPV 11.2 (9.4-12.4) fL Immature Gran % 0.7 (0-4) % Seg Neutrophils % 81.3 % Lymphocytes % 11.5 % Monocytes % 4.4 % Eosinophils % 1.7 % Basophils % 0.4 % Neutrophils # 5.7 (1.6-8.9) K/mcL Lymphocytes # 0.8 (0.6-4.6) K/mcL Monocytes # 0.3 (0.0-1.3) K/mcL Eosinophils # 0.1 (0.0-0.6) K/mcL Basophils # 0.0 (0.0-0.2) K/mcL PT 13.0 H (9.4-12.1) Seconds INR 1.2 APTT 33.3 (26.0-36.0) Seconds D-Dimer 2274 H (0-500) ng/mLFEU Sodium (136-145) mEq/L Potassium (3.5-4.5) mEq/L Chloride (98-109) mEq/L Carbon Dioxide (19-29) mEq/L BUN (8-26) mg/dL Creatinine (0.72-1.25) mg/dL Est GFR ( Amer) (> 60) Est GFR (Non-Af Amer) (> 60) BUN/Creatinine Ratio (6-26) Glucose (70-99) mg/dL Calculated Osmolality (280-300) Calcium (8.6-10.8) mg/dL Troponin I (0-0.03) ng/mL B-Natriuretic Peptide 2064 H (0-100) pg/mL 12/14/16 12/14/16 Range/Units 21:27 21:27 WBC (4.3-11.1) K/mcL RBC (4.19-5.50) M/mcL Hgb (12.9-16.9) g/dL Hct (37.5-50.1) % MCV (83.0-100.0) fL MCH (28.0-33.3) pg MCHC (31.6-35.5) g/dL RDW (11.5-14.5) % Plt Count (140-400) K/mcL MPV (9.4-12.4) fL Immature Gran % (0-4) % Seg Neutrophils % % Lymphocytes % % Monocytes % % Eosinophils % % Basophils % % Neutrophils # (1.6-8.9) K/mcL Lymphocytes # (0.6-4.6) K/mcL Monocytes # (0.0-1.3) K/mcL Eosinophils # (0.0-0.6) K/mcL Basophils # (0.0-0.2) K/mcL PT (9.4-12.1) Seconds INR APTT (26.0-36.0) Seconds D-Dimer (0-500) ng/mLFEU Sodium 139 (136-145) mEq/L Potassium 4.7 H (3.5-4.5) mEq/L Chloride 97 L (98-109) mEq/L Carbon Dioxide 32 H (19-29) mEq/L BUN 27 H (8-26) mg/dL Creatinine 3.91 H (0.72-1.25) mg/dL Est GFR ( Amer) 19 L (> 60) Est GFR (Non-Af Amer) 15 L (> 60) BUN/Creatinine Ratio 7 (6-26) Glucose 119 H (70-99) mg/dL Calculated Osmolality 294 (280-300) Calcium 9.7 (8.6-10.8) mg/dL Troponin I 0.12 H* (0-0.03) ng/mL B-Natriuretic Peptide (0-100) pg/mL - EKG Data EKG attestation: Yes I reviewed and interpreted this EKG. EKG results narrative: sinus tachy with rate of 71. NO STEMI. LAFB. normal intervals. no old ekg to compare. 1948
[2016-12-14] MEDS ORDERED: Levofloxacin 750 MG/150 ML 750 MG/150 ML BAG IVPB ONE (20:30)
[2016-12-14] MEDS ORDERED: Piperacillin/Tazobactam 3.375 GM in D5% in Water (Mini-Bag+) 100 ML IVPB ONE (20:30)
[2016-12-14 21:39] LABS: Basophils % 0.4 %; Eosinophils # 0.1 K/mcL (0.0-0.6); Eosinophils % 1.7 %; Hematocrit 39.8 % (37.5-50.1); Hemoglobin 12.3 g/dL (12.9-16.9); Immature Granulocytes % 0.7 % (0-4); Lymphocytes # 0.8 K/mcL (0.6-4.6); Lymphocytes % 11.5 %; Mean Corpuscular HGB Conc 30.9 g/dL (31.6-35.5); Mean Corpuscular Hemoglobin 27.6 pg (28.0-33.3); Mean Corpuscular Volume 89.4 fL (83.0-100.0); Mean Platelet Volume 11.2 fL (9.4-12.4); Monocytes # 0.3 K/mcL (0.0-1.3); Monocytes % 4.4 %; Neutrophils # 5.7 K/mcL (1.6-8.9); Platelet Count 118 K/mcL (140-400); Red Blood Count 4.45 M/mcL (4.19-5.50); Red Cell Distribution Width 19.2 % (11.5-14.5); Segmented Neutrophils % 81.3 %
[2016-12-14 21:41] LABS: INR 1.2
[2016-12-14 21:44] LABS: Activated Partial Thrombo Time 33.3 Seconds (26.0-36.0)
[2016-12-14] MEDS ORDERED: *HR* Enoxaparin 120 MG/0.8 ML SYRINGE SQ STA (21:51)
[2016-12-14 21:52] LABS: Calcium 9.7 mg/dL (8.6-10.8); Potassium 4.7 mEq/L (3.5-4.5)
[2016-12-14] MEDS ORDERED: Furosemide 40 MG/4 ML VIAL IVP ONE (22:03)
[2016-12-15 00:41] LABS: ABG Base Excess 6.3 mEq/L (-2.0 to 3.0); ABG HCO3 36.3 mEQ/L (21-27); ABG Oxygen Saturation 97 % (95-98); ABG PH 7.26 pH Units (7.32-7.45); ABG PO2 103 mmHg (85-104); ABG TCO2 38.8 mEq/L (20-26)
[2016-12-15 00:42] LABS: Blood Gas FiO2 40 %
[2016-12-15 00:43] LABS: ABG PCO2 81 mmHg (35-45)
--- NOTE | 2016-12-15 00:53 | Internal Med History&Physical ---
<Aquilino Pemberton - Last Filed: 12/15/16 02:23> Date of Encounter: 12/15/16 Time of Encounter: 01:47 Assessment and Plan (1) COPD exacerbation Current visit: Yes Status: Acute -Patient improved with bipap. Almost back to baseline. -ABG before Bipap. Plan -Will redraw ABG -Predisone 40mg, -Duoneb prn -Consider decreasing abx to oral levaquin if patient not taking warfarin. -Bipap at night -Decrease Nasal cannula tomorrow morning till patient is off oxygen. Keep O2 above 88% (2) Congestive heart failure Current visit: Yes Status: Acute -Echo on 09/23 EF 50-55% with severe LVH, Severe Dilated L and R atrum. No Pulm HTN -CTA on 12/14 Ground glass opacities, pulmonary edema. No PE. -Trop .12. Likely due to CKD. -No murmur, recent infections, F, elevated WBC -No cardio consult at this time. Doubt significant cardiac changes since last echo. Plan -Will not continue lasixs until nephro consulted. Qualifiers: Congestive heart failure type: diastolic Congestive heart failure chronicity: acute on chronic Qualified Code(s): I50.33 - Acute on chronic diastolic (congestive) heart failure (3) Dialysis patient Current visit: No Status: Acute -Hemodialysis MWF -Stopped half way through dialysis becasue of SOB -Will consult nephro to see if pt can get dialysis treatment today (4) Diabetes Current visit: No Status: Chronic -Type II. Does not take any medication -Will not restart at this time unless BS >400 Qualifiers: Diabetes mellitus type: type 2 Diabetes mellitus complication status: with kidney complications Diabetes mellitus complication detail: with other kidney complication Qualified Code(s): E11.29 - Type 2 diabetes mellitus with other diabetic kidney complication (5) DVT prophylaxis Current visit: No Status: Acute -Afib and patient not taking warfarin, INR <1.5. Patient states he did not restart warfarin following last admission. -Patient received therapeutic Lovenox in ED. -Will call pharmacy about when to start heparin -IPCs for now. Plan -Start Heparin sq for DVT ppx 12 hours after last lovenox dose. Internal Medicine - H&P: HPI Chief complaint: SOB Admitted From: Emergency Dept Plans for Post Hospital Care: Home History of present illness: Mr. Hernandez is a 71 year old male, PMH ESRD on hemo dialysis, afib, COPD, CHF, DM , etc admitted for acute SOB. Patient had admission in 09/23/16 (PEA arrest secondary to hyperkalemia, intubation, bronch, positive suptum culture, pneumonia, hemophysis). Patient states that he was undergoing dialysis yesterday afternoon and felt SOB during the treatment "possibly from anxiety". Went home and continued to have increase SOB even at rest. Decided to come to the ED to be evaluated. While in the ED patient placed on bipap and CTA ordered showing no PE, revealing pulmonary edema, ground glass opacities, R heart dysfunction and possible pulmonary artery stenosis. Currently patient feels like he is close to baseline. Sitting up in bed, non labored breathing, able to answer questions without becoming SOB. Has a mild cough that is non productive. Is on NC 4L, is not on home oxygen. Admits to mild SOB still. Denies CP, SHAY, no pain anywhere. His biggest concern is when can he eat next. He would like to go home now or tomorrow. Past Med Surg Social Fam HX - Past Medical History Medical history: aortic aneurysm, diabetes, dialysis, hypertension, renal disease, other Psychiatric history: no psych history - Past Surgical History Surgical History: angioplasty/stent (x3), cholecystectomy, other (AAA repair, left knee surgery.) - Social History Smoking Status: Current every day smoker Smokeless Tobacco Status: No Alcohol use: none Drug use: none - Family History Mother Hx Family Cardiac Disorders: Yes (HTN) Father Hx Family Cardiac Disorders: Yes (HTN) Internal Medicine - H&P: Meds Carvedilol [Coreg] 25 mg PO BID 09/08/15 [History] CloNIDine HCl 0.1 mg PO QAM 09/08/15 [History] Albuterol Neb [AccuNeb] 1.25 mg IH Q4H PRN 09/21/16 [History] Amlodipine [Norvasc] 5 mg PO DAILY 09/22/16 [History] Budesonide/Formoterol 160/4.5 [Symbicort 160/4.5] 2 puff IH BIDR 09/22/16 [ History] Cinacalcet [Sensipar] 30 mg PO DAILY 09/22/16 [History] Omeprazole [PriLOSEC] 20 mg PO DAILY 09/22/16 [History] Aspirin 81 mg PO DAILY #0 tab.chew 09/28/16 [Rx] LORazepam [Ativan] 0.5 mg PO BID PRN #20 09/28/16 [Rx] Oxycodone HCl 15 mg PO Q6H PRN #20 tablet 09/28/16 [Rx] Calcitriol 0.5 mcg PO DAILY 12/14/16 [History] Ipratropium/Albuterol Sulfate [Combivent Respimat Inhal [place]] 4 gm IH QID PRN 12/14/16 [History] Losartan [Cozaar] 50 mg PO BID 12/14/16 [History] Allergies rofecoxib [From Vioxx] Allergy (Verified 11/20/16 01:50) Swelling of Lip/Tongue/Throat All Systems PM: A 10-system review of systems was performed and is negative for pertinent findings except as documented above in the HPI. - Constitutional Constitutional: no chills, no fever(s), no night sweats - Cardiovascular Cardiovascular ROS IM: as per HPI - Respiratory Respiratory: as per HPI - Gastrointestinal Gastrointestinal: no abdominal pain - Constitutional Vitals: Temp Pulse Resp BP Pulse Ox 98.2 F 109 22 164/109 95 12/14/16 19:34 12/14/16 23:28 12/15/16 00:45 12/15/16 00:45 12/14/16 23:28 General appearance: Present: A&O X 3, pleasant, no acute distress, obese - Head Head exam: Present: atraumatic, normocephalic - Eye Eye exam: Present: PERRL, conjuntiva pink, sclera anicteric Pupils: Present: PERRL - Neck Neck exam general surgery: Present: supple, trachea midline. Absent: lymphadenopathy - Respiratory Respiratory exam: Present: wheezes. Absent: rales - Cardiovascular Cardiovascular exam: Present: +S1, +S2, tachycardia. Absent: diastolic murmur, systolic murmur - Other Additional findings: +1 pitting edema in lower extremities. Internal Med - H&P Results - Labs CBC & Chem 7: 12/14/16 21:27 12/14/16 21:27 - ABG Interpretation ABG results: 12/15/16 00:30 ABG pH 7.26 L ABG pCO2 81 H* ABG pO2 103 ABG HCO3 36.3 H ABG Total CO2 38.8 H ABG O2 Saturation 97 ABG Base Excess 6.3 H <Eula Carroll - Last Filed: 12/15/16 05:56> Date of Encounter: 12/15/16 Internal Medicine - H&P: HPI History of present illness: Mr. Hernandez is a 71 year old male All Systems PM: A 10-system review of systems was performed and is negative for pertinent findings except as documented above in the HPI. - Constitutional Vitals: Temp Pulse Resp BP Pulse Ox 97.7 F 109 18 184/107 90 12/15/16 04:32 12/15/16 04:32 12/15/16 04:32 12/15/16 04:32 12/15/16 04:32 Internal Med - H&P Results - Labs CBC & Chem 7: 12/14/16 21:27 12/14/16 21:27 - ABG Interpretation ABG results: 12/15/16 00:30 ABG pH 7.26 L ABG pCO2 81 H* ABG pO2 103 ABG HCO3 36.3 H ABG Total CO2 38.8 H ABG O2 Saturation 97 ABG Base Excess 6.3 H - Attending Attestation Patient seen and examined, agree with assessment and plan of PGY-1 Aquilino Pemberton. Patient with shortness of breath likely secondary to COPD exacerbation in setting of ESRD on HD and volume overload. Patient's dialysis was not completed, and repeat dialysis tomorrow may be helpful for fluid management - nephrology consulted and we appreciate their assistance. Patient respiratory status significantly improved with BIPAP. Will continue treatment for COPD exacerbation.
[2016-12-15] MEDS ORDERED: Naloxone 0.4 MG/ML INJ IVP PRN (02:45)
[2016-12-15] MEDS: Ipratropium/Albuterol Neb 3 ML IH SCH ×3 (08:00→15:40)
[2016-12-15] MEDS ORDERED: predniSONE 20 MG TABLET PO SCH (09:00)
[2016-12-15] MEDS ORDERED: 0.9 % Sodium Chloride 250 ML IVC PRN (09:55)
[2016-12-15] MEDS ORDERED: 0.9 % Sodium Chloride 1,000 ML PRIME SCH (10:00)
[2016-12-15 10:38] LABS: Hepatitis B Surface Antigen Nonreactive (Nonreactive)
--- NOTE | 2016-12-15 11:44 | Nephrology Consult Note ---
Date of Encounter: 12/16/16 Time of Encounter: 11:10 Assessment and Plan (1) ESRD on dialysis Status: Chronic ESRD on dialysis. Fluid overload in setting of missed or shortened treatments of HD with patient signing off early. HD today, orders given. HD tomorrow, keeping [facility] schedule. Concern or patient missing outpatient HD tomorrow if discharged. History of Present Illness - Reason for Consult end stage renal disease - History of Present Illness Mr. Hernandez diayzes at [facility]. Last dialysis was on Monday and he signed off early for "anxiety." He later presented to ER with SOB via EMS. In ER he was placed on BiPap. CTA showed no PE, pulmonary edema, ground glass opacities, suggestion of pulm HTN. Other PMH -HTN, DM II, aortic aneurysm and hospital stay in August-PEA arrest due to hyperkalemia, intubated, bronched, PNA. Mr. Hernandez has been missing treatments and signing off early as of late. Today he is seen on HD, orders given. He states he wants to go home after HD, but will not commit to coming to outpatient center tomorrow for scheduled HD. Told him of concern about fluid overload over weekend. Verbalized he understood and said would come to treatment. Past Med Surg Social Fam HX - Past Medical History Medical history: aortic aneurysm, diabetes, dialysis, hypertension, renal disease, other Psychiatric history: no psych history - Past Surgical History Surgical History: angioplasty/stent (x3), cholecystectomy, other (AAA repair, left knee surgery.) - Social History Smoking Status: Current every day smoker Smokeless Tobacco Status: No Alcohol use: none Drug use: none - Family History Mother Hx Family Cardiac Disorders: Yes (HTN) Father Adopted: No Living Status: Cause of : cancer Hx Family Cardiac Disorders: Yes (HTN) Hx Family Respiratory Disorders: No Hx Family Cancer: Yes Hx Family GI Disorders: No Hx Family Genitourinary Disorders: No Hx Family Endocrine Disorder: No Hx Family Musculoskeletal Disorders: No Hx Family Neuromuscular Disorders: No Hx Family Neurologic Disorders: No Hx Family HEENT Disorders: No Hx Family Autoimmune Disorders: No Hx Family Reproductive Disorders: No Hx Family Psychosocial Disorders: No Hx Family Medical Disorders: No Medications and Allergies Carvedilol [Coreg] 25 mg PO BID 09/08/15 [History] CloNIDine HCl 0.1 mg PO QAM 09/08/15 [History] Albuterol Neb [AccuNeb] 1.25 mg IH Q4H PRN 09/21/16 [History] Amlodipine [Norvasc] 5 mg PO DAILY 09/22/16 [History] Budesonide/Formoterol 160/4.5 [Symbicort 160/4.5] 2 puff IH BIDR 09/22/16 [ History] Cinacalcet [Sensipar] 30 mg PO DAILY 09/22/16 [History] Omeprazole [PriLOSEC] 20 mg PO DAILY 09/22/16 [History] Aspirin 81 mg PO DAILY #0 tab.chew 09/28/16 [Rx] LORazepam [Ativan] 0.5 mg PO BID PRN #20 09/28/16 [Rx] Oxycodone HCl 15 mg PO Q6H PRN #20 tablet 09/28/16 [Rx] Calcitriol 0.5 mcg PO DAILY 12/14/16 [History] Ipratropium/Albuterol Sulfate [Combivent Respimat Inhal [place]] 4 gm IH QID PRN 12/14/16 [History] Losartan [Cozaar] 50 mg PO BID 12/14/16 [History] Allergies rofecoxib [From Vioxx] Allergy (Verified 11/20/16 01:50) Swelling of Lip/Tongue/Throat Exam - Vital Signs Vital signs: Initial Vital Signs Temp Pulse Resp BP Pulse Ox 98.2 F 109 20 136/91 91 12/14/16 19:34 12/14/16 19:34 12/14/16 19:34 12/14/16 19:34 12/14/16 19:34 Vital Signs - Last 8 Hours Temp Pulse Resp BP Pulse Ox 12/15/16 08:29 97.7 F 105 17 157/88 94 Intake and Output 12/14/16 12/15/16 12/15/16 23:59 07:59 15:59 Intake Total 360 / 600 Balance 360 / 600 Intake: Oral 360 / 600 Other: Meal Breakfast Percent of Meal Consumed 95% Blood Glucose* 167 - General Appearance General appearance: well-developed, well-nourished, appears started age EENT: mucous membranes moist Neck: no JVD, no carotid bruit Additional Comments: diminished in bases Cardiology: edema, regular rate, regular rhythm Additional Comments: mild pitting LE edema Gastrointestinal: normoactive bowel sounds, no tenderness Integumentary: warm and dry Neurologic: alert and oriented x3 Psychiatric: mood/affect appropriate, cooperative Results - Lab Results 12/14/16 21:27 12/14/16 21:27 Most recent lab results ABG pH 7.26 pH Units (7.32-7.45) L 12/15/16 00:30 ABG pCO2 81 mmHg (35-45) H* 12/15/16 00:30 ABG pO2 103 mmHg (85-104) 12/15/16 00:30 ABG HCO3 36.3 mEQ/L (21-27) H 12/15/16 00:30 ABG O2 Saturation 97 % (95-98) 12/15/16 00:30 Calcium 9.7 mg/dL (8.6-10.8) 12/14/16 21:27 Consult Discharge Plan - Plan Referrals: Chilo Lewis Jr, MD [Primary Care Provider] - 12/26/16 3:30 pm
--- NOTE | 2016-12-15 13:36 | Electrocardiograph Report ---
[address] [place], [place] [address] Test Date: 2016-12-14 Pat Name: Jabier Hernandez Department: 105 Room: 2A42 Gender: M Frankfurter Inspector: : 1945 Requested By: Maya Cruz Order Number: [id number] Reading MD: Troy Abdi MD Measurements Intervals [place] Rate: 109 P: -87 [place]: 150 QRS: -87 QRSD: 113 T: 92 QT: 347 QTc: 411 Interpretive Statements SINUS TACHYCARDIA LEFT ANTERIOR FASCICULAR BLOCK ANTERIOR MYOCARDIAL INFARCTION Electronically Signed On 12-15-2016 13:35:08 EDT by Troy Abdi MD
[2016-12-15] MEDS ORDERED: *HR* Heparin 5,000 UNIT/ML VIAL SQ SCH (14:00)
[2016-12-15 15:05] VITALS: BP 134/89
--- NOTE | 2016-12-15 16:41 | Discharge Summary ---
Date of Encounter: 12/15/16 Time of Encounter: 16:38 - Discharge Diagnosis (1) ESRD on dialysis Priority: Secondary Status: Chronic (2) Tobacco abuse Priority: Secondary Status: Chronic (3) DVT prophylaxis Priority: Secondary Status: Acute (4) COPD exacerbation Priority: Secondary Status: Acute (5) Acute respiratory failure with hypoxia and hypercarbia Priority: Primary Status: Acute - Discharge Medications Home Medications: Carvedilol [Coreg] 25 mg PO BID 09/08/15 [History] CloNIDine HCl 0.1 mg PO QAM 09/08/15 [History] Albuterol Neb [AccuNeb] 1.25 mg IH Q4H PRN 09/21/16 [History] Amlodipine [Norvasc] 5 mg PO DAILY 09/22/16 [History] Budesonide/Formoterol 160/4.5 [Symbicort 160/4.5] 2 puff IH BIDR 09/22/16 [ History] Cinacalcet [Sensipar] 30 mg PO DAILY 09/22/16 [History] Omeprazole [PriLOSEC] 20 mg PO DAILY 09/22/16 [History] Aspirin 81 mg PO DAILY #0 tab.chew 09/28/16 [Rx] LORazepam [Ativan] 0.5 mg PO BID PRN #20 09/28/16 [Rx] Oxycodone HCl 15 mg PO Q6H PRN #20 tablet 09/28/16 [Rx] Calcitriol 0.5 mcg PO DAILY 12/14/16 [History] Ipratropium/Albuterol Sulfate [Combivent Respimat Inhal [place]] 4 gm IH QID PRN 12/14/16 [History] Losartan [Cozaar] 50 mg PO BID 12/14/16 [History] Allergies/Adverse Reactions: Allergies rofecoxib [From Vioxx] Allergy (Verified 11/20/16 01:50) Swelling of Lip/Tongue/Throat Date of admission: 12/15/16 00:27 Primary care physician: Chilo Lewis Jr, MD Consults: 12/15/16 01:28 Consult to Nutrition [CONS] Routine Comment: Consulting Provider: NUTRITION Reason for Dietary Consult: Diet Education 12/15/16 02:47 Consult to Board Design Engineer [CONS] Routine Reason for SW Consult: Patient wishes Home health. COPD, afib, CHF 12/15/16 05:16 Consult to Nephrology [CONS] Routine Consulting Provider: [facility] Reason for Consult: Pt Hemodialysis yesterday. Stopped 1/[address] way due to SOB. Admitted yesterday for SOB. Elevated Cr, K. Want to continue dialysis? Call Completed: Yes 12/15/16 10:00 Consult to Dialysis [CONS] ONCE Discharging clinician: Bertrand Dasilva (patient signed out AMA) - Patient Status Disposition: Left Against Medical Advice Condition: Good - Discharge Instructions Follow Up With: Chilo Lewis Jr, MD [Primary Care Provider] - 12/26/16 3:30 pm Interval History: Mr. Hernandez is a 71 year old male, PMH ESRD on hemo dialysis, afib, COPD, CHF, DM , etc admitted for acute SOB. Patient had admission in 09/23/16 (PEA arrest secondary to hyperkalemia, intubation, bronch, positive suptum culture, pneumonia, hemophysis). Patient states that he was undergoing dialysis yesterday afternoon and felt SOB during the treatment "possibly from anxiety". Went home and continued to have increase SOB even at rest. Decided to come to the ED to be evaluated. While in the ED patient placed on bipap and CTA ordered showing no PE, revealing pulmonary edema, ground glass opacities, R heart dysfunction and possible pulmonary artery stenosis. Currently patient feels like he is close to baseline. Sitting up in bed, non labored breathing, able to answer questions without becoming SOB. Has a mild cough that is non productive. Is on NC 4L, is not on home oxygen. Admits to mild SOB still. Denies CP, SHAY, no pain anywhere. His biggest concern is when can he eat next. He would like to go home now or tomorrow. Hospital course: Mr. Hernandez is a 71 year old male admitted overnight. he underwent HD today, they removed overl 4L of fluids during HD. Patient was seen and examined during HD. Afterwards he returned to the floor and stated that he wanted to leave the hospital against medical advice, he signed the forms and left the hospital AMA. - Time Spent with Patient Total time spent providing and/or coordinating discharge services: - Constitutional Vitals: Temp Pulse Resp BP Pulse Ox 98.3 F 105 16 134/89 87 12/15/16 14:58 12/15/16 08:29 12/15/16 15:40 12/15/16 14:58 12/15/16 15:40 General appearance: Present: A&O X 3, pleasant, obese - Head Head exam: Present: atraumatic, normocephalic - Eye Eye exam: Present: PERRL, conjuntiva pink, sclera anicteric Pupils: Present: PERRL - Neck Neck exam general surgery: Present: supple, trachea midline. Absent: lymphadenopathy - Respiratory Respiratory exam: Present: CTAB. Absent: accessory muscle use, rales, rhonchi, wheezes - Cardiovascular Cardiovascular exam: Present: RRR, +S1, +S2. Absent: diastolic murmur, gallop, rubs, systolic murmur - GI/Abdominal GI/Abdominal exam: Present: normal bowel sounds, soft, no peritoneal signs. Absent: distended, tenderness - Extremities Exam Extremities exam: Present: warm, radial pulses palpable and symetrical. Absent : calf tenderness, cyanotic, pedal edema - Neurological Exam Neurological exam: Present: CN II-XII intact, oriented X3, no focal deficits. Absent: pronater drift, facial droop, speech deficit - Skin Skin exam: Present: dry, intact
[2016-12-16 08:42] LABS: Hepatitis B Surface Antibody 0.24 mIU/mL
== END 2016-12-15 16:40 | disposition left against medical advice (07) ==
LOC: EMEROO 19:25 → 2ANU 19:25 → SUATTDRO 12-15 00:27 → 2ANU 12-15 00:57
PROVIDERS: ADMIT Internal Medicine; ATTEND Internal Medicine

== ENCOUNTER 2017-01-23 21:56 | Inpatient (IN) ==
[2017-01-23 22:35] LABS: Basophils % 0.4 %; Eosinophils # 0.1 K/mcL (0.0-0.6); Eosinophils % 1.4 %; Hematocrit 38.4 % (37.5-50.1); Hemoglobin 12.3 g/dL (12.9-16.9); Immature Granulocytes % 0.4 % (0-4); Lymphocytes # 1.5 K/mcL (0.6-4.6); Lymphocytes % 19.6 %; Mean Corpuscular Hemoglobin 27.2 pg (28.0-33.3); Mean Platelet Volume 10.3 fL (9.4-12.4); Monocytes # 0.4 K/mcL (0.0-1.3); Monocytes % 5.3 %; Neutrophils # 5.7 K/mcL (1.6-8.9); Platelet Count 121 K/mcL (140-400); Red Blood Count 4.52 M/mcL (4.19-5.50); Red Cell Distribution Width 18.3 % (11.5-14.5); Segmented Neutrophils % 72.9 %
[2017-01-23 22:50] LABS: Calcium 9.2 mg/dL (8.6-10.8)
[2017-01-23] MEDS ORDERED: *HR* Labetalol 20 MG/4 ML SYRINGE IVP ONE (23:19)
--- NOTE | 2017-01-23 23:55 | Emergency Department Note ---
Disposition Clinical Impression: Shortness of breath, Uncontrolled hypertension Disposition: Admitted As Inpatient Condition: Fair Referrals: NO,PCP [Primary Care Provider] - Forms: ED Satisfaction Letter Time of Disposition: 23:57 SOB HPI - General Chief Complaint: ED Shortness of Breath/Dyspnea Stated Complaint: SOB Source: patient, EMS Limitations: no limitations Nursing Notes Reviewed: Yes Vital Signs Reviewed: Yes - History of Present Illness 71-year-old male presents emergency room for shortness of breath. Patient goes to dialysis 3 times a week and did not go today due to the holiday. He felt more short of breath this evening. He denies any chest pain.. No fevers. He does have a smoking history and currently is a smoker. He does not were home oxygen. His arrival to the ER and we took him off O2 and he dropped to the mid 80s. While on oxygen he has been 93%. He denies any cough or sputum production. No new leg swelling that is new for him. He has no other complaints at this time other than the shortness of breath. He states he does feel better while on the oxygen. Pt Subjective Complaint: shortness of breath Onset (ago): hour(s) - Related Data Home Medications Medication Instructions Recorded Confirmed Carvedilol [Coreg] 25 mg PO BID 09/08/15 12/14/16 cloNIDine HCl [CloNIDine HCl] 0.1 mg PO QAM 09/08/15 12/14/16 Albuterol Neb [AccuNeb] 1.25 mg IH Q4H PRN 09/21/16 12/14/16 Budesonide/Formoterol 160/4.5 2 puff IH BIDR 09/22/16 12/14/16 [Symbicort 160/4.5] Cinacalcet [Sensipar] 30 mg PO DAILY 09/22/16 12/14/16 Omeprazole [PriLOSEC] 20 mg PO DAILY 09/22/16 12/14/16 amLODIPine [Norvasc] 5 mg PO DAILY 09/22/16 12/14/16 Calcitriol 0.5 mcg PO DAILY 12/14/16 12/14/16 Ipratropium/Albuterol Sulfate 4 gm IH QID PRN 12/14/16 12/14/16 [Combivent Respimat Inhal [place]] Losartan [Cozaar] 50 mg PO BID 12/14/16 12/14/16 Previous Rx's Medication Instructions Recorded Aspirin 81 mg PO DAILY #0 tab.chew 09/28/16 LORazepam [Ativan] 0.5 mg PO BID PRN #20 09/28/16 Oxycodone HCl 15 mg PO Q6H PRN #20 tablet 09/28/16 Allergies Allergy/AdvReac Type Severity Reaction Status Date / Time rofecoxib [From Vioxx] Allergy Swelling Verified 11/20/16 01:50 of Lip/Tongue/Throat Review of Systems: Gen.: No fevers or chills or new weakness Eyes: Denies double vision or any vision changes Ears: Denies any otalgia Pharynx: Denies sore throat CV: Denies chest pain. Denies palpitations Respiratory: + for shortness of breath GI: Denies any nausea, vomiting, diarrhea, constipation. Denies abdominal pain Neuro: Denies any headache. No problems with ambulation. No numbness. Skin: Denies any rashes or abrasions Psych: Denies any depression or suicidal or homicidal ideation Musculoskeletal: Denies any arthralgias or myalgias Past Medical History - Past Medical History Medical history: Reports: aortic aneurysm, diabetes, dialysis, hyperlipidemia, hypertension, myocardial infarction, renal disease, other Surgical history: Reports: angioplasty/stent (x3), cholecystectomy, other (AAA repair, left knee surgery.) Psychiatric history: Reports: anxiety, depression - Social History Smoking Status: Current every day smoker Smokeless Tobacco Status: No Alcohol use: Reports: rarely Drug use: Reports: none Physical Exam - General Limitations: no limitations General appearance: alert - Head Head exam: atraumatic, normocephalic - ENT ENT exam: normal exam, mucous membranes moist - Neck Neck exam: Present: normal inspection - Chest Chest inspection: Present: symmetric chest wall rise - Respiratory Respiratory exam: Present: other (Diminished breath sounds bilaterally. Some scant Rales heard in the bases bilaterally.) - Cardiovascular Cardiovascular exam: Present: normal rhythm, tachycardia - Abdominal Exam Abdominal exam: Present: soft, Non-Tender - Expanded Lower Extremity Exam Hip/Pelvis exam: Present: swelling (1-2+ pitting edema bilaterally in the lower extremities. Symmetrical in nature.) - Back Exam Back exam: Present: normal inspection - Neurological Exam Neurological exam: Present: alert, oriented X3 - Psychiatric Psychiatric exam: Present: normal affect, normal mood - Skin Skin exam: Present: warm, dry, intact Course Course Narrative: Patient was given 20 mg IV labetalol for his uncontrolled blood pressure. We kept him on oxygen in the ER. His sats were in the mid 90s. Chest x-ray shows some cardiomegaly and pulmonary vascular congestion consistent with volume overload. His troponin is chronically elevated and remains elevated tonight. His EKG shows a slightly tachycardic rate but no significant changes compared to previous. I feel the patient needs to be admitted for dialysis tomorrow as well as blood pressure control. Vital Signs Temperature 98 F 01/23/17 21:58 Pulse Rate 108 01/23/17 21:58 Respiratory Rate 22 01/23/17 21:58 Blood Pressure 194/115 01/23/17 21:58 O2 Sat by Pulse Oximetry 94 01/23/17 21:58 Temperature 98 F 01/23/17 21:58 Pulse Rate 110 01/23/17 23:39 Respiratory Rate 22 01/23/17 23:39 Blood Pressure 188/92 01/23/17 23:39 O2 Sat by Pulse Oximetry 93 01/23/17 23:39 Oxygen Delivery Oxygen Delivery Nasal Cannula Shortness of Breath/Dyspnea - Medical Records Medical records reviewed: Yes I reviewed the patient's medical records. - Lab Data Lab results reviewed: Yes I reviewed the patient's lab results. Result diagrams: 01/23/17 22:17 01/23/17 22:17 Lab Results 01/23/17 01/23/17 01/23/17 Range/Units 22:17 22:17 22:17 WBC 7.8 (4.3-11.1) K/mcL RBC 4.52 (4.19-5.50) M/mcL Hgb 12.3 L (12.9-16.9) g/dL Hct 38.4 (37.5-50.1) % MCV 85.0 (83.0-100.0) fL MCH 27.2 L (28.0-33.3) pg MCHC 32.0 (31.6-35.5) g/dL RDW 18.3 H (11.5-14.5) % Plt Count 121 L (140-400) K/mcL MPV 10.3 (9.4-12.4) fL Immature Gran % 0.4 (0-4) % Seg Neutrophils % 72.9 % Lymphocytes % 19.6 % Monocytes % 5.3 % Eosinophils % 1.4 % Basophils % 0.4 % Neutrophils # 5.7 (1.6-8.9) K/mcL Lymphocytes # 1.5 (0.6-4.6) K/mcL Monocytes # 0.4 (0.0-1.3) K/mcL Eosinophils # 0.1 (0.0-0.6) K/mcL Basophils # 0.0 (0.0-0.2) K/mcL Sodium 135 L (136-145) mEq/L Potassium 4.0 (3.5-4.5) mEq/L Chloride 98 (98-109) mEq/L Carbon Dioxide 23 (19-29) mEq/L BUN 50 H (8-26) mg/dL Creatinine 4.69 H (0.72-1.25) mg/dL Est GFR ( Amer) 15 L (> 60) Est GFR (Non-Af Amer) 12 L (> 60) BUN/Creatinine Ratio 11 (6-26) Glucose 136 H (70-99) mg/dL Calculated Osmolality 295 (280-300) Calcium 9.2 (8.6-10.8) mg/dL Troponin I 0.11 H* (0-0.03) ng/mL B-Natriuretic Peptide (0-100) pg/mL 01/23/17 Range/Units 22:17 WBC (4.3-11.1) K/mcL RBC (4.19-5.50) M/mcL Hgb (12.9-16.9) g/dL Hct (37.5-50.1) % MCV (83.0-100.0) fL MCH (28.0-33.3) pg MCHC (31.6-35.5) g/dL RDW (11.5-14.5) % Plt Count (140-400) K/mcL MPV (9.4-12.4) fL Immature Gran % (0-4) % Seg Neutrophils % % Lymphocytes % % Monocytes % % Eosinophils % % Basophils % % Neutrophils # (1.6-8.9) K/mcL Lymphocytes # (0.6-4.6) K/mcL Monocytes # (0.0-1.3) K/mcL Eosinophils # (0.0-0.6) K/mcL Basophils # (0.0-0.2) K/mcL Sodium (136-145) mEq/L Potassium (3.5-4.5) mEq/L Chloride (98-109) mEq/L Carbon Dioxide (19-29) mEq/L BUN (8-26) mg/dL Creatinine (0.72-1.25) mg/dL Est GFR ( Amer) (> 60) Est GFR (Non-Af Amer) (> 60) BUN/Creatinine Ratio (6-26) Glucose (70-99) mg/dL Calculated Osmolality (280-300) Calcium (8.6-10.8) mg/dL Troponin I (0-0.03) ng/mL B-Natriuretic Peptide 2877 H (0-100) pg/mL - Radiology Data Radiology results reviewed: Yes I reviewed the patient's radiology results. - EKG Data EKG attestation: Yes I reviewed and interpreted this EKG. EKG results narrative: EKG shows a rate of 108. Ectopic atrial tachycardia with a first-degree AV block. OH interval is 217. QRS 131. QT 438. No significant changes as compared to previous.
--- NOTE | 2017-01-24 00:35 | Internal Med History&Physical ---
Date of Encounter: 01/24/17 Time of Encounter: 00:33 Assessment and Plan (1) End-stage renal disease on hemodialysis Current visit: Yes Status: Acute Patient missed his hemodialysis session on Monday. We will admit him to the hospital. We will consult nephrology. I have emphasized the importance of diet , sodium restriction and compliance with hemodialysis. (2) Tobacco abuse Current visit: No Status: Chronic We will provide transdermal nicotine replacement therapy. (3) DVT prophylaxis Current visit: No Status: Acute Patient is fully ambulatory. We will encourage ambulation. No pharmacological prophylaxis as needed. (4) Volume overload Current visit: No Status: Resolved Likely secondary to missed hemodialysis, possible dietary indiscretion. Volume management with hemodialysis tomorrow. We will consult nephrology. I will give 1 dose of IV Lasix. The patient still makes urine. Qualifiers: Hypervolemia type: unspecified Qualified Code(s): E87.70 - Fluid overload, unspecified (5) Hypoxia Current visit: No Status: Acute We will use supplemental oxygen by nasal cannula. (6) Shortness of breath Current visit: Yes Status: Acute Supplemental oxygen. (7) Hypertensive urgency Current visit: Yes Status: Acute Patient's systolic blood pressure was 220 on arrival. Currently improved to 140 -160 systolic. We will resume his oral antihypertensive medication and use labetalol IV as needed for systolic blood pressure greater than 180. Internal Medicine - H&P: HPI Chief complaint: Shortness of breath Admitted From: Emergency Dept Plans for Post Hospital Care: Home History of present illness: Mr. Hernandez is a 71 year old male with past medical history significant for hypertension and end-stage renal disease on hemodialysis who presented to the hospital for shortness of breath which he says occurs at rest, moderate to severe progressively worse over the last 2 days and he denies chest pain cough and sputum production. He says that he missed his dialysis session on Monday because he is in the process of moving. He says that his last hemodialysis was on Monday. He denies fevers chills, nausea, vomiting and diarrhea. A 10 point review of systems was otherwise negative. Past Med Surg Social Fam HX - Past Medical History Medical history: aortic aneurysm, diabetes, dialysis, hyperlipidemia, hypertension, myocardial infarction, renal disease, other Psychiatric history: anxiety, depression - Past Surgical History Surgical History: angioplasty/stent (x3), cholecystectomy, other (AAA repair, left knee surgery.) - Social History Smoking Status: Current every day smoker Smokeless Tobacco Status: No Alcohol use: rarely Drug use: none - Family History Mother Hx Family Cardiac Disorders: Yes (HTN) Father Adopted: No Living Status: Hx Family Cardiac Disorders: Yes (HTN) Hx Family Respiratory Disorders: No Hx Family Cancer: Yes Hx Family GI Disorders: No Hx Family Endocrine Disorder: No Hx Family Neuromuscular Disorders: No Hx Family Neurologic Disorders: No Hx Family HEENT Disorders: No Hx Family Autoimmune Disorders: No Internal Medicine - H&P: Meds Carvedilol [Coreg] 25 mg PO BID 09/08/15 [History] cloNIDine HCl [CloNIDine HCl] 0.1 mg PO QAM 09/08/15 [History] Albuterol Neb [AccuNeb] 1.25 mg IH Q4H PRN 09/21/16 [History] Budesonide/Formoterol 160/4.5 [Symbicort 160/4.5] 2 puff IH BIDR 09/22/16 [ History] Cinacalcet [Sensipar] 30 mg PO DAILY 09/22/16 [History] Omeprazole [PriLOSEC] 20 mg PO DAILY 09/22/16 [History] amLODIPine [Norvasc] 5 mg PO DAILY 09/22/16 [History] Aspirin 81 mg PO DAILY #0 tab.chew 09/28/16 [Rx] LORazepam [Ativan] 0.5 mg PO BID PRN #20 09/28/16 [Rx] Oxycodone HCl 15 mg PO Q6H PRN #20 tablet 09/28/16 [Rx] Calcitriol 0.5 mcg PO DAILY 12/14/16 [History] Ipratropium/Albuterol Sulfate [Combivent Respimat Inhal [place]] 4 gm IH QID PRN 12/14/16 [History] Losartan [Cozaar] 50 mg PO BID 12/14/16 [History] Allergies rofecoxib [From Vioxx] Allergy (Verified 11/20/16 01:50) Swelling of Lip/Tongue/Throat All Systems PM: A 10-system review of systems was performed and is negative for pertinent findings except as documented above in the HPI. - Constitutional Vitals: Temp Pulse Resp BP Pulse Ox 98 F 92 18 145/76 97 01/23/17 21:58 01/23/17 23:59 01/24/17 00:17 01/24/17 00:17 01/23/17 23:59 General appearance: Present: A&O X 3, no acute distress - Eye Eye exam: Present: PERRL, conjuntiva pink, sclera anicteric Pupils: Present: PERRL - Respiratory Respiratory exam: Present: CTAB. Absent: accessory muscle use, rales, rhonchi, wheezes - Cardiovascular Cardiovascular exam: Present: RRR, +S1, +S2. Absent: diastolic murmur, gallop, rubs, systolic murmur - GI/Abdominal GI/Abdominal exam: Present: normal bowel sounds, soft, no peritoneal signs. Absent: distended, tenderness - Extremities Exam Extremities exam: Present: warm, radial pulses palpable and symetrical. Absent : calf tenderness, cyanotic, pedal edema - Neurological Exam Neurological exam: Present: CN II-XII intact, oriented X3, no focal deficits. Absent: pronater drift, facial droop, speech deficit - Skin Skin exam: Present: dry, intact Internal Med - H&P Results - Labs CBC & Chem 7: 01/23/17 22:17 01/23/17 22:17
[2017-01-24] MEDS ORDERED: *HR* Labetalol 20 MG/4 ML SYRINGE IVP PRN (00:42)
[2017-01-24] MEDS ORDERED: Furosemide 40 MG/4 ML VIAL IVP ONE (00:42)
[2017-01-24] MEDS ORDERED: Acetaminophen 325 MG TABLET PO PRN (00:44)
[2017-01-24] MEDS ORDERED: Ondansetron 4 MG/2 ML VIAL IVP PRN (00:44)
[2017-01-24] MEDS ORDERED: *HR* LORazepam 0.5 MG TABLET PO PRN (00:46)
[2017-01-24] MEDS ORDERED: *HR* OxyCODONE Immed Rel 15 MG TABLET PO PRN (00:46)
[2017-01-24] MEDS: Ipratropium/Albuterol Neb 3 ML IH SCH ×4 (04:16→21:50)
[2017-01-24 05:35] LABS: Calcium 9.5 mg/dL (8.6-10.8); Potassium 4.6 mEq/L (3.5-4.5)
--- NOTE | 2017-01-24 07:53 | Nephrology Consult Note ---
Date of Encounter: 01/24/17 Time of Encounter: 07:51 Assessment and Plan (1) ESRD on dialysis Current Visit: No Status: Chronic The patient will undergo dialysis today. Orders have been submitted. Hemoglobin is 12.3 so the patient does not require any Aranesp. Chest x-ray shows some pulmonary vascular congestion. He will undergo volume removal with dialysis today. He should continue on his oral antihypertensive medications. His medication should not be held on dialysis days. (2) Benign hypertension with end-stage renal disease Current Visit: Yes Status: Acute (3) Atrial fibrillation Current Visit: No Status: Chronic Qualifiers: Atrial fibrillation type: chronic Qualified Code(s): I48.2 - Chronic atrial fibrillation (4) CAD (coronary artery disease) Current Visit: No Status: Chronic Qualifiers: Coronary Disease-Associated Artery/Lesion type: [place] artery [place] vs. transplanted heart: [place] heart Associated angina: without angina Qualified Code(s): I25.10 - Atherosclerotic heart disease of [place] coronary artery without angina pectoris History of Present Illness - History of Present Illness This is a 71-year-old male with a history of end-stage renal disease. He receives dialysis every Monday in [place]. Patient missed his dialysis yesterday. Patient presented to emergency room with complaints of shortness of breath both at rest and with exertion. Patient has history of poor compliance with dialysis attendance and also with medications. Patient presented with poorly controlled blood pressure with a systolic blood pressure of approximately 200. Currently the patient is resting comfortably lying flat in bed. Blood pressures down to 152/90. He says his breathing is better. He will undergo his usual dialysis today since he missed dialysis yesterday. Patient denies any chest pain. He does have some mild lower extremity swelling. Past Med Surg Social Fam HX - Past Medical History Medical history: aortic aneurysm, diabetes, dialysis, hyperlipidemia, hypertension, myocardial infarction, renal disease, other Psychiatric history: anxiety, depression - Past Surgical History Surgical History: angioplasty/stent (x3), cholecystectomy, other (AAA repair, left knee surgery.) - Social History Smoking Status: Current every day smoker Smokeless Tobacco Status: No Alcohol use: rarely Drug use: none - Family History Mother Hx Family Cardiac Disorders: Yes (HTN) Father Adopted: No Living Status: Hx Family Cardiac Disorders: Yes (HTN) Hx Family Respiratory Disorders: No Hx Family Cancer: Yes Hx Family GI Disorders: No Hx Family Endocrine Disorder: No Hx Family Neuromuscular Disorders: No Hx Family Neurologic Disorders: No Hx Family HEENT Disorders: No Hx Family Autoimmune Disorders: No Medications and Allergies Carvedilol [Coreg] 25 mg PO BID 09/08/15 [History] cloNIDine HCl [CloNIDine HCl] 0.1 mg PO QAM 09/08/15 [History] Albuterol Neb [AccuNeb] 1.25 mg IH Q4H PRN 09/21/16 [History] Budesonide/Formoterol 160/4.5 [Symbicort 160/4.5] 2 puff IH BIDR 09/22/16 [ History] Cinacalcet [Sensipar] 30 mg PO DAILY 09/22/16 [History] Omeprazole [PriLOSEC] 20 mg PO DAILY 09/22/16 [History] amLODIPine [Norvasc] 5 mg PO DAILY 09/22/16 [History] Aspirin 81 mg PO DAILY #0 tab.chew 09/28/16 [Rx] LORazepam [Ativan] 0.5 mg PO BID PRN #20 09/28/16 [Rx] Oxycodone HCl 15 mg PO Q6H PRN #20 tablet 09/28/16 [Rx] Calcitriol 0.5 mcg PO DAILY 12/14/16 [History] Ipratropium/Albuterol Sulfate [Combivent Respimat Inhal [place]] 4 gm IH QID PRN 12/14/16 [History] Losartan [Cozaar] 50 mg PO BID 12/14/16 [History] Allergies rofecoxib [From Vioxx] Allergy (Verified 11/20/16 01:50) Swelling of Lip/Tongue/Throat Review of Systems Constitutional: as per HPI, weakness Eyes: bilateral: blurred vision (patient denies), diplopia (patient denies) Nose, mouth and throat: no dizziness, no headache(s) Cardiovascular: dyspnea, dyspnea on exertion, edema, irregular heart rhythm Respiratory: as per HPI, dyspnea, dyspnea on exertion Gastrointestinal: no abdominal pain, no change in bowel habits Musculoskeletal: no muscle weakness, no numbness Integumentary: no hirsutism, no striae Neurological: as per HPI, weakness Psychiatric: no depression, no difficulty concentrating Endocrine: as per HPI Hematologic/Lymphatic: no easy bruising, no lymphadenopathy Exam - Vital Signs Vital signs: Initial Vital Signs Temp Pulse Resp BP Pulse Ox 98 F 108 22 194/115 94 01/23/17 21:58 01/23/17 21:58 01/23/17 21:58 01/23/17 21:58 01/23/17 21:58 Vital Signs - Last 8 Hours Temp Pulse Resp BP Pulse Ox 01/24/17 06:54 97.5 F L 104 18 152/90 92 01/24/17 04:19 16 100 01/24/17 04:03 97.9 F 105 18 151/86 92 01/24/17 00:44 97.7 F 102 18 131/74 92 01/24/17 00:17 18 145/76 Intake and Output 01/23/17 01/23/17 01/24/17 15:59 23:59 07:59 Other: Weight 117.662 kg Patient Weight 01/24/17 23:59 Weight 117.662 kg - General Appearance Exam: Patient is lying flat in bed. He is in no acute distress. Neck is supple. Lungsbreath sounds with occasional expiratory wheezing. Heart irregular rate and rhythm. Abdomen is obese. Bowel sounds are present. No guarding rigidity organomegaly or tenderness noted. Lower extremities show mild lower extremity swelling. There is a functioning AV fistula in the right upper extremity. Results - Lab Results 01/23/17 22:17 01/24/17 04:29 Most recent lab results Calcium 9.5 mg/dL (8.6-10.8) 01/24/17 04:29 Consult Discharge Plan - Plan Referrals: Chilo Lewis Jr, MD [Primary Care Provider] -
[2017-01-24] MEDS ORDERED: 0.9 % Sodium Chloride 250 ML IVC PRN (07:55)
[2017-01-24] MEDS: Nicotine 14 MG PATCH.TD24 TD SCH (08:56)
[2017-01-24] MEDS: Aspirin 81 MG TAB.CHEW PO SCH ×2 (08:58→09:03)
[2017-01-24] MEDS: cloNIDine HCl 0.1 MG TABLET PO SCH ×2 (08:59→09:05)
[2017-01-24] MEDS: amLODIPine 5 MG TABLET PO SCH ×2 (09:00→09:06)
[2017-01-24] MEDS: Budesonide/Formoterol 160/4.5 MDI IH SCH ×2 (09:50→21:50)
[2017-01-24] MEDS ORDERED: Ipratropium/Albuterol Neb 3 ML IH ONE (10:34)
--- NOTE | 2017-01-24 10:36 | Internal Med Progress Note ---
Date of Encounter: 01/24/17 Time of Encounter: 10:31 - Assessment and plan (1) COPD (chronic obstructive pulmonary disease) Current Visit: Yes Status: Chronic Assessment and plan: Patient actively wheezing at time of review, denies cough, change in sputum Duoneb STAT Continue O2 supplement prn Qualifiers: COPD type: unspecified COPD Qualified Code(s): J44.9 - Chronic obstructive pulmonary disease, unspecified (2) ESRD on dialysis Current Visit: Yes Status: Chronic Assessment and plan: Renal input appreciated For HD as scheduled Anticipate d/c a.m (3) Tobacco abuse Current Visit: Yes Status: Chronic Assessment and plan: Counselled on cessation for 3 minutes NRT continue (4) Atrial fibrillation Current Visit: Yes Status: Chronic Assessment and plan: Resume, continue home meds HR controlled Not on chronic anticoagulation secondary to chikis hemoptysis in the past Qualifiers: Atrial fibrillation type: chronic Qualified Code(s): I48.2 - Chronic atrial fibrillation (5) CAD (coronary artery disease) Current Visit: Yes Status: Chronic Assessment and plan: Continue home meds Qualifiers: Coronary Disease-Associated Artery/Lesion type: [place] artery [place] vs. transplanted heart: [place] heart Associated angina: without angina Qualified Code(s): I25.10 - Atherosclerotic heart disease of [place] coronary artery without angina pectoris (6) Volume overload Current Visit: Yes Status: Acute Assessment and plan: Secondary to non-compliance with HD Anticipate improvment in respiration and edema with resumption of HD and home meds Qualifiers: Hypervolemia type: unspecified Qualified Code(s): E87.70 - Fluid overload, unspecified (7) Hypertensive urgency Current Visit: Yes Status: Acute Assessment and plan: Improved, patient known to be borderline hypotensive after HD Monitor till a.m, anticipate d/c a.m depending on clinical outcome - Subjective Interval history: Seen and evaluated at bedside during hemodialysis 71 M, known ESRD on hemodialysis, hypertension, urinary tract disease status post [place], hyperlipidemia and history of aortic aneurysm, Afib , tobacco abuse, DM Patient is known to be noncompliant with his medications on hemodialysis Patient presented with evidence of accelerated hypertension and mild volume overload with mild pedal edema and chest x-ray evidence of vascular congestion. Denies new complaints, currently receiving hemodialysis. Nephrology input noted and appreciated. - Constitutional Vitals: Temp Pulse Resp BP Pulse Ox 97.5 F L 104 20 175/112 92 01/24/17 09:15 01/24/17 06:54 01/24/17 09:15 01/24/17 09:15 01/24/17 06:54 VSS Laying in cardiac position on HD HEENT: Normal insepction of neck, acyanotic, sclera anicteric Chest: Diffuse bilateral expiratory wheezing, no crackles or rhonchi Heart: S1, S2, irregular, no murmurs Abdomen: Obese, soft, not tender, BS present Extremities: Trace bilateral pedal edema, R AVF with thrill, being used at time of review General appearance: Present: A&O X 3, no acute distress Internal Medicine: Result - Labs CBC & Chem 7: 01/23/17 22:17 01/24/17 04:29 Labs: BMP 01/24/17 04:29 Sodium 136 Potassium 4.6 H Chloride 100 Carbon Dioxide 23 BUN 51 H Creatinine 4.99 H Glucose 112 H Calcium 9.5 Cardiac Enzymes 01/24/17 Range/Units 04:29 Troponin I 0.11 H* (0-0.03) ng/mL Consult Discharge Plan - Plan Referrals: Chilo Lewis Jr, MD [Primary Care Provider] - 01/31/17 11:00 am
[2017-01-24 11:37] LABS: Hepatitis B Surface Antigen Nonreactive (Nonreactive)
--- NOTE | 2017-01-24 18:17 | Electrocardiograph Report ---
[address] [place], [place] [address] Test Date: 2017-01-23 Pat Name: Jabier Hernandez Department: 102 Room: 2A37 Gender: M [employer] Consultant: Jaime : 1945 Requested By: Jabier Woody Order Number: [id number] Reading MD: Bebe Lacy Measurements Intervals [place] Rate: 108 P: -72 [place]: 217 QRS: -78 QRSD: 131 T: 89 QT: 375 QTc: 438 Interpretive Statements PROBABLE SINUS RHYTHM WITH FIRST DEGREE BLOCK INTRAVENTRICULAR CONDUCTION DELAY POSSIBLE ANTERIOR MYOCARDIAL INFARCTION Electronically Signed On 01-24-2017 18:15:38 EDT by Bebe Lacy
[2017-01-25] MEDS: Ipratropium/Albuterol Neb 3 ML IH SCH ×5 (04:28→22:34)
[2017-01-25 05:39] LABS: Calcium 8.5 mg/dL (8.6-10.8); Potassium 4.9 mEq/L (3.5-4.5)
[2017-01-25] MEDS: Aspirin 81 MG TAB.CHEW PO SCH (08:42)
[2017-01-25] MEDS: amLODIPine 5 MG TABLET PO SCH (08:43)
[2017-01-25] MEDS: Nicotine 14 MG PATCH.TD24 TD SCH (08:43)
[2017-01-25] MEDS: cloNIDine HCl 0.1 MG TABLET PO SCH (08:43)
[2017-01-25] MEDS ORDERED: 0.9 % Sodium Chloride 250 ML IVC PRN (09:35)
--- NOTE | 2017-01-25 09:35 | Nephrology Progress Note ---
Date of Encounter: 01/25/17 Time of Encounter: 09:33 - Assessment and Plan (1) ESRD on dialysis Current Visit: Yes Status: Chronic Patient will undergo dialysis today to get him back on his regular schedule. He was dialyzed yesterday but he missed his outpatient dialysis on Monday. (2) Benign hypertension with end-stage renal disease Current Visit: Yes Status: Acute (3) Atrial fibrillation Current Visit: Yes Status: Chronic Qualifiers: Atrial fibrillation type: chronic Qualified Code(s): I48.2 - Chronic atrial fibrillation (4) CAD (coronary artery disease) Current Visit: Yes Status: Chronic Qualifiers: Coronary Disease-Associated Artery/Lesion type: [place] artery [place] vs. transplanted heart: [place] heart Associated angina: without angina Qualified Code(s): I25.10 - Atherosclerotic heart disease of [place] coronary artery without angina pectoris Subjective Interval history: The patient was sleeping. He was easily awakened. He denies any shortness of breath. He is requesting more pain pills. He appears to be more alert than he was yesterday morning. He will undergo dialysis today since it is his regular day and this will get him back on schedule. Blood pressure is under better control. Objective - Vital Signs Vital signs: Vital Signs Temp Pulse Resp BP Pulse Ox 01/25/17 08:06 97.7 F 84 18 168/77 93 01/25/17 04:28 20 91 01/25/17 04:02 97.8 F 101 20 105/68 94 01/25/17 00:32 97.6 F 104 18 133/78 93 01/24/17 21:16 95 01/24/17 16:43 97.0 F L 83 18 108/60 96 01/24/17 12:45 97.5 F L 96 16 89/60 92 01/24/17 12:35 97.5 F L 16 120/71 01/24/17 12:25 119/71 01/24/17 12:15 112/69 01/24/17 12:00 121/95 01/24/17 11:45 116/73 01/24/17 11:30 119/66 01/24/17 11:15 116/65 01/24/17 11:00 123/63 01/24/17 10:45 125/78 01/24/17 10:30 132/76 05/30/17 10:15 146/83 01/24/17 10:00 142/91 01/24/17 09:45 157/91 Intake and Output 01/24/17 01/25/17 01/25/17 23:59 07:59 15:59 Other: Stool Size Large Stool Consistency loose soft Stool Color Brown # Voids 1 # Bowel Movements 1 Weight 117.7 kg Patient Weight 01/25/17 23:59 Weight 117.7 kg - General Appearance Exam: Patient is alert. He is in no acute distress. Lungs diminished breath sounds. There is no wheezing today. Heart irregular rate and rhythm consistent with atrial fibrillation. Abdomen is obese but nontender. There is mild lower extremity swelling. There is a functioning AV fistula in the right upper extremity. - Lab 01/23/17 22:17 01/25/17 04:32 Most recent lab results Calcium 8.5 mg/dL (8.6-10.8) L 01/25/17 04:32 Consult Discharge Plan - Plan Referrals: Chilo Lewis Jr, MD [Primary Care Provider] - 01/31/17 11:00 am
--- NOTE | 2017-01-25 09:57 | Internal Med Progress Note ---
Date of Encounter: 01/25/17 Time of Encounter: 09:55 - Assessment and plan (1) COPD (chronic obstructive pulmonary disease) Current Visit: Yes Status: Chronic Assessment and plan: Patient not actively wheezing at time of review, denies cough, change in sputum Continue duonebs prn Continue O2 supplement prn Qualifiers: COPD type: unspecified COPD Qualified Code(s): J44.9 - Chronic obstructive pulmonary disease, unspecified (2) ESRD on dialysis Current Visit: Yes Status: Chronic Assessment and plan: Renal input appreciated For HD as scheduled Anticipate d/c a.m (3) Tobacco abuse Current Visit: Yes Status: Chronic Assessment and plan: Counselled on cessation for 3 minutes NRT continue (4) Atrial fibrillation Current Visit: Yes Status: Chronic Assessment and plan: continue home meds HR controlled Not on chronic anticoagulation secondary to chikis hemoptysis in the past Qualifiers: Atrial fibrillation type: chronic Qualified Code(s): I48.2 - Chronic atrial fibrillation (5) CAD (coronary artery disease) Current Visit: Yes Status: Chronic Assessment and plan: Continue home meds Qualifiers: Coronary Disease-Associated Artery/Lesion type: [place] artery [place] vs. transplanted heart: [place] heart Associated angina: without angina Qualified Code(s): I25.10 - Atherosclerotic heart disease of [place] coronary artery without angina pectoris (6) Volume overload Current Visit: Yes Status: Acute Assessment and plan: Secondary to non-compliance with HD Patient needing Oxygen, but this is chronic on chart review He is again for HD today, continue to monitor Qualifiers: Hypervolemia type: unspecified Qualified Code(s): E87.70 - Fluid overload, unspecified (7) Hypertensive urgency Current Visit: Yes Status: Acute Assessment and plan: Improved, patient known to be borderline hypotensive after HD Monitor till a.m, anticipate d/c a.m depending on clinical outcome (8) Acute and chronic respiratory failure with hypoxia Current Visit: Yes Status: Acute Assessment and plan: Continue O2 Qualify for home O2 today - Subjective Interval history: Seen and evaluated at bedside 71 M, known ESRD on hemodialysis, hypertension, urinary tract disease status post [place], hyperlipidemia and history of aortic aneurysm, Afib , tobacco abuse, DM Patient is known to be noncompliant with his medications on hemodialysis Patient presented with evidence of accelerated hypertension and mild volume overload with mild pedal edema and chest x-ray evidence of vascular congestion. s/p HD yesterday Scheduled for HD today Noted to have been started on O2 overnight, on NC now, 2L, patient has hx of COPD, active smoker Chart review reveals he has always needed O2, but was previously discharged AMA in 11/2016 and to [facility] 10/2016 Complains of abdominal discomfort-states "I ate too much" Patient occasionally acts confused, calling out "Judd"-His son, even though he knows the date/his location/himself/physician Patient needs also qualification for home O2 - Constitutional Vitals: Temp Pulse Resp BP Pulse Ox 97.7 F 84 18 168/77 93 01/25/17 08:06 01/25/17 08:06 01/25/17 08:06 01/25/17 08:06 01/25/17 08:06 General appearance: Present: A&O X 3, pleasant, no acute distress - Head Head exam: Present: atraumatic, normocephalic - Eye Eye exam: Present: PERRL, conjuntiva pink, sclera anicteric Pupils: Present: PERRL - Neck Neck exam general surgery: Present: supple, trachea midline. Absent: lymphadenopathy - Respiratory Respiratory exam: Present: CTAB. Absent: accessory muscle use, rales, rhonchi, wheezes - Cardiovascular Cardiovascular exam: Present: irregular rhythm, +S1, +S2. Absent: diastolic murmur, gallop, rubs, systolic murmur - GI/Abdominal GI/Abdominal exam: Present: normal bowel sounds, soft, no peritoneal signs. Absent: distended, tenderness - Extremities Exam Extremities exam: Present: pedal edema, warm, radial pulses palpable and symetrical. Absent: calf tenderness, cyanotic Additional comments: R AVF thrill - Neurological Exam Neurological exam: Present: alert, CN II-XII intact, oriented X3, no focal deficits. Absent: pronater drift, facial droop, speech deficit - Skin Skin exam: Present: dry, intact Internal Medicine: Result - Labs CBC & Chem 7: 01/23/17 22:17 01/25/17 04:32 Labs: BMP 01/25/17 04:32 Sodium 136 Potassium 4.9 H Chloride 97 L Carbon Dioxide 28 BUN 42 H Creatinine 4.50 H Glucose 189 H Calcium 8.5 L Consult Discharge Plan - Plan Referrals: Chilo Lewis Jr, MD [Primary Care Provider] - 01/31/17 11:00 am
[2017-01-25 10:03] LABS: Hepatitis B Surface Antibody 0.59 mIU/mL
[2017-01-25] MEDS: Budesonide/Formoterol 160/4.5 MDI IH SCH ×3 (10:47→22:34)
[2017-01-25] MEDS ORDERED: 0.9 % Sodium Chloride 2,000 ML ONE (11:41)
[2017-01-25] MEDS: *HR* Heparin 5,000 UNIT/ML VIAL SQ SCH ×2 (13:50→21:01)
[2017-01-26] MEDS: Ipratropium/Albuterol Neb 3 ML IH SCH ×4 (03:49→21:17)
[2017-01-26] MEDS: *HR* Heparin 5,000 UNIT/ML VIAL SQ SCH ×3 (06:37→21:55)
[2017-01-26] MEDS ORDERED: Haloperidol Lactate 5 MG/ML VIAL IM STA (07:24)
[2017-01-26] MEDS ORDERED: Haloperidol Lactate 5 MG/ML VIAL ONE (07:29)
[2017-01-26 08:21] LABS: Basophils % 0.2 %; Hemoglobin 11.9 g/dL (12.9-16.9)
[2017-01-26 08:23] LABS: Eosinophils # 0.1 K/mcL (0.0-0.6); Eosinophils % 1.1 %; Hematocrit 39.1 % (37.5-50.1); Immature Granulocytes % 0.3 % (0-4); Immature Platelets 5.8 % (1.1-6.1); Lymphocytes % 15.3 %; Mean Corpuscular HGB Conc 30.4 g/dL (31.6-35.5); Mean Corpuscular Hemoglobin 27.1 pg (28.0-33.3); Mean Corpuscular Volume 89.1 fL (83.0-100.0); Mean Platelet Volume 10.2 fL (9.4-12.4); Monocytes # 0.5 K/mcL (0.0-1.3); Monocytes % 7.5 %; Neutrophils # 4.8 K/mcL (1.6-8.9); Platelet Count 100 K/mcL (140-400); Red Blood Count 4.39 M/mcL (4.19-5.50); Red Cell Distribution Width 17.9 % (11.5-14.5); Segmented Neutrophils % 75.6 %
[2017-01-26 08:32] LABS: Calcium 8.2 mg/dL (8.6-10.8); Potassium 4.6 mEq/L (3.5-4.5)
--- NOTE | 2017-01-26 09:27 | Internal Med Progress Note ---
Date of Encounter: 01/26/17 Time of Encounter: 09:25 - Assessment and plan (1) Acute and chronic respiratory failure with hypoxia Current Visit: Yes Status: Acute Assessment and plan: Secondary to volume overload on admission and pneumonia Continue O2 Qualify for home O2 today (2) Pneumonia Current Visit: Yes Status: Acute Assessment and plan: CXR done this a.m due to increasing O2 requirement showed RLL and MARIA pneumonia Will send resp panel and blood culture Will initiate antibiotics for HCAP-Cefepime and Vancomycin Sputum culture ordered, patient was coughing at time of review Qualifiers: Pneumonia type: due to unspecified organism Laterality: bilateral Lung location: unspecified part of lung Qualified Code(s): J18.9 - Pneumonia, unspecified organism (3) COPD (chronic obstructive pulmonary disease) Current Visit: Yes Status: Chronic Assessment and plan: Patient not actively wheezing at time of review, CXR noted, as above Continue duonebs prn Continue O2 supplement prn Qualifiers: COPD type: unspecified COPD Qualified Code(s): J44.9 - Chronic obstructive pulmonary disease, unspecified (4) ESRD on dialysis Current Visit: Yes Status: Chronic Assessment and plan: Renal input appreciated For HD as scheduled (5) Tobacco abuse Current Visit: Yes Status: Chronic Assessment and plan: Counselled on cessation for 3 minutes NRT continue (6) Atrial fibrillation Current Visit: Yes Status: Chronic Assessment and plan: continue home meds HR controlled Not on chronic anticoagulation secondary to chikis hemoptysis in the past Qualifiers: Atrial fibrillation type: chronic Qualified Code(s): I48.2 - Chronic atrial fibrillation (7) CAD (coronary artery disease) Current Visit: Yes Status: Chronic Assessment and plan: Continue home meds Qualifiers: Coronary Disease-Associated Artery/Lesion type: [place] artery [place] vs. transplanted heart: [place] heart Associated angina: without angina Qualified Code(s): I25.10 - Atherosclerotic heart disease of [place] coronary artery without angina pectoris (8) Volume overload Current Visit: Yes Status: Acute Assessment and plan: Secondary to non-compliance with HD Continue O2 HD as per renal Qualifiers: Hypervolemia type: unspecified Qualified Code(s): E87.70 - Fluid overload, unspecified (9) Hypertensive urgency Current Visit: Yes Status: Resolved Assessment and plan: REsolved (10) Discharge planning issues Current Visit: Yes Status: Acute Assessment and plan: Patient with recurrent monthly admissions, lives alone, states he lives with his son Judd, who is a minor, and he is obviously unable to care for himself, will consult SW for placement - Subjective Interval history: Seen and evaluated at bedside 71 M, known ESRD on hemodialysis, hypertension, urinary tract disease status post [place], hyperlipidemia and history of aortic aneurysm, Afib , tobacco abuse, DM , Chronic respiratory failure not on home O2 due to patient refusal Patient is known to be noncompliant with his medications on hemodialysis Patient presented with evidence of accelerated hypertension and mild volume overload with mild pedal edema and chest x-ray evidence of vascular congestion. CXR done this a.m with pneumonia Alert, oriented X3 at time of review, sometimes combative and unco-operative with staff Patient is agreeable for SNF placement at time of discharge Will place sitter with patient - Constitutional Vitals: Temp Pulse Resp BP Pulse Ox 97.6 F 78 16 122/89 98 01/26/17 08:20 01/26/17 08:20 01/26/17 08:20 01/26/17 08:20 01/26/17 08:20 General appearance: Present: A&O X 3, pleasant, no acute distress - Head Head exam: Present: atraumatic, normocephalic - Eye Eye exam: Present: PERRL, conjuntiva pink, sclera anicteric Pupils: Present: PERRL - Neck Neck exam general surgery: Present: supple, trachea midline. Absent: lymphadenopathy - Respiratory Respiratory exam: Present: rhonchi. Absent: accessory muscle use, rales, wheezes Additional comments: LLL Rhonchi - Cardiovascular Cardiovascular exam: Present: irregular rhythm, +S1, +S2. Absent: diastolic murmur, gallop, rubs, systolic murmur - GI/Abdominal GI/Abdominal exam: Present: normal bowel sounds, soft, no peritoneal signs. Absent: distended, tenderness - Extremities Exam Extremities exam: Present: warm, radial pulses palpable and symetrical. Absent : calf tenderness, cyanotic, pedal edema Additional comments: R AVF thrill MIld trace pedal edema - Neurological Exam Neurological exam: Present: alert, CN II-XII intact, oriented X3, no focal deficits. Absent: pronater drift, facial droop, speech deficit - Skin Skin exam: Present: dry Internal Medicine: Result - Labs CBC & Chem 7: 01/26/17 08:13 01/26/17 08:13 Labs: Short CBC 01/26/17 Range/Units 08:13 WBC 6.4 (4.3-11.1) K/mcL Hgb 11.9 L (12.9-16.9) g/dL Hct 39.1 (37.5-50.1) % Plt Count 100 L (140-400) K/mcL Neutrophils # 4.8 (1.6-8.9) K/mcL BMP 01/26/17 08:13 Sodium 138 Potassium 4.6 H Chloride 98 Carbon Dioxide 30 H BUN 30 H D Creatinine 4.45 H Glucose 108 H Calcium 8.2 L - Impressions Impressions Chest X-Ray 01/26/17 07:51 IMPRESSION: Persistent right basilar opacity. New left suprahilar opacity. Considerations include atelectasis and pneumonia. Radiographic follow-up is suggested. D/ / 01/26/2017 08:45:27 Earnest Klein MD / kristen Interpreting Provider: Earnest Klein MD Consult Discharge Plan - Plan Referrals: Chilo Lewis Jr, MD [Primary Care Provider] - 01/31/17 11:00 am
[2017-01-26] MEDS ORDERED: Vancomycin 1,500 MG in D5% in Water 250 ML IVPB ONE (10:00)
[2017-01-26] MEDS ORDERED: Cefepime HCl 1,000 MG in D5% in Water (Mini-Bag+) 100 ML IVPB SCH (10:00)
[2017-01-26] MEDS ORDERED: Vancomycin (wt based) 1,000 MG VIAL IVPB SCH (10:00)
--- NOTE | 2017-01-26 10:18 | Nephrology Progress Note ---
Date of Encounter: 01/26/17 Time of Encounter: 09:50 - Assessment and Plan (1) ESRD on dialysis Current Visit: Yes Status: Chronic BP controlled 122/89-78. Somnolent. Would decrease sedating medication. Question if agitation is withdrawal from pain medication taken at home. HD tomorrow. keeping MWF schedule. Subjective Interval history: Laying on bed while in sitting position wit legs off bed. Very somnolent. When aroused agitated, verbally loud then dozes off. Staff states received Haldol this morning for increased agitation. Objective - Vital Signs Vital signs: Vital Signs Temp Pulse Resp BP Pulse Ox 01/26/17 08:20 97.6 F 78 16 122/89 98 01/26/17 04:24 89/51 01/26/17 03:06 97.8 F 91 20 84/57 89 01/25/17 22:35 24 98 01/25/17 22:17 98.2 F 106 22 110/67 95 01/25/17 21:21 93 01/25/17 19:09 98 F 79 18 137/89 94 01/25/17 16:43 92 01/25/17 16:18 97.7 F 80 18 103/59 88 01/25/17 15:51 22 77 01/25/17 14:50 97.2 F L 20 94/53 01/25/17 14:30 94/53 01/25/17 14:15 90/60 01/25/17 14:00 96/60 01/25/17 13:45 97/63 01/25/17 13:30 97/61 01/25/17 13:15 114/89 01/25/17 13:00 114/88 01/25/17 12:45 92/47 01/25/17 12:30 90/51 01/25/17 12:15 94/51 01/25/17 12:00 98/53 01/25/17 11:45 107/51 01/25/17 11:30 103/53 01/25/17 11:15 99/60 01/25/17 11:00 97.7 F 22 92/63 Intake and Output 01/25/17 01/26/17 01/26/17 23:59 07:59 15:59 Intake Total 240 / 240 Output Total 0 / 0 Balance 240 / 240 Intake: Oral 240 / 240 Output: Urine 0 / 0 Other: Meal Dinner Percent of Meal Consumed 100% Weight 118.9 kg Patient Weight 01/26/17 23:59 Weight 118.9 kg - General Appearance General appearance: Present: well-developed, appears started age, obese EENT: Present: mucous membranes moist Neck: Present: no JVD Respiratory: Present: rhonchi Cardiology: Present: no edema, irregular rhythm Gastrointestinal: Present: normoactive bowel sounds, no tenderness Integumentary: Present: warm and dry Neurologic: Present: obtunded Psychiatric: Present: agitated - Lab 01/26/17 08:13 01/26/17 08:13 Most recent lab results Calcium 8.2 mg/dL (8.6-10.8) L 01/26/17 08:13 Consult Discharge Plan - Plan Referrals: Chilo Lewis Jr, MD [Primary Care Provider] - 01/31/17 11:00 am
[2017-01-26] MEDS: Budesonide/Formoterol 160/4.5 MDI IH SCH ×2 (10:20→21:17)
[2017-01-26] MEDS: cloNIDine HCl 0.1 MG TABLET PO SCH (12:46)
[2017-01-26] MEDS: Aspirin 81 MG TAB.CHEW PO SCH (12:47)
[2017-01-26] MEDS: amLODIPine 5 MG TABLET PO SCH (12:47)
[2017-01-26] MEDS: Nicotine 14 MG PATCH.TD24 TD SCH (12:48)
[2017-01-26] MEDS: Sennosides/Docusate Sodium TABLET PO SCH ×2 (12:51→21:57)
[2017-01-26] MEDS: risperiDONE 0.25 MG TABLET PO SCH ×2 (12:51→21:57)
[2017-01-26] MEDS: Cefepime HCl 1,000 MG in D5% in Water (Mini-Bag+) 100 ML IVPB SCH (16:37)
[2017-01-26 21:28] LABS: Adenovirus Not Detected (Not Detect); Bordetella Pertussis Not Detected (Not Detect); Chlamydophila pneumoniae Not Detected (Not Detect); Coronavirus 229E Not Detected (Not Detect); Coronavirus HKU1 Not Detected (Not Detect); Coronavirus NL63 Not Detected (Not Detect); Coronavirus OC43 Not Detected (Not Detect); Human Metapneumovirus Not Detected (Not Detect); Human Rhinovirus/Enterovirus Not Detected (Not Detect); Influenza A Subtype 2009 H1 Not Detected (Not Detect); Influenza A Untypeable Not Detected (Not Detect); Influenza B Not Detected (Not Detect); Mycoplasma pneumoniae Not Detected (Not Detect); Parainfluenza Virus 1 Not Detected (Not Detect); Parainfluenza Virus 2 Not Detected (Not Detect); Parainfluenza Virus 3 Not Detected (Not Detect); Parainfluenza Virus 4 Not Detected (Not Detect); Respiratory Syncytial Virus Not Detected (Not Detect)
[2017-01-27] MEDS: Ipratropium/Albuterol Neb 3 ML IH SCH ×3 (04:11→22:03)
[2017-01-27 04:27] LABS: Basophils % 0.3 %; Hematocrit 36.3 % (37.5-50.1); Hemoglobin 11.2 g/dL (12.9-16.9); Immature Granulocytes % 0.3 % (0-4); Mean Corpuscular HGB Conc 30.9 g/dL (31.6-35.5); Mean Corpuscular Hemoglobin 27.2 pg (28.0-33.3); Mean Corpuscular Volume 88.1 fL (83.0-100.0); Red Blood Count 4.12 M/mcL (4.19-5.50)
[2017-01-27 04:29] LABS: Eosinophils # 0.1 K/mcL (0.0-0.6); Eosinophils % 1.7 %; Immature Platelets 5.9 % (1.1-6.1); Lymphocytes # 1.1 K/mcL (0.6-4.6); Lymphocytes % 17.9 %; Mean Platelet Volume 10.7 fL (9.4-12.4); Monocytes # 0.5 K/mcL (0.0-1.3); Monocytes % 8.7 %; Neutrophils # 4.2 K/mcL (1.6-8.9); Nucleated Red Blood Cells 0.3 /100 WBC (0); Segmented Neutrophils % 71.1 %
[2017-01-27 04:41] LABS: Calcium 8.1 mg/dL (8.6-10.8); Potassium 5.4 mEq/L (3.5-4.5)
[2017-01-27 04:43] LABS: Platelet Count 99 K/mcL (140-400)
[2017-01-27] MEDS: *HR* Heparin 5,000 UNIT/ML VIAL SQ SCH ×3 (05:48→21:54)
[2017-01-27] MEDS ORDERED: Vancomycin 1,500 MG in D5% in Water 250 ML IVPB ONE (07:27)
[2017-01-27] MEDS ORDERED: 0.9 % Sodium Chloride 250 ML IVC PRN (07:53)
[2017-01-27] MEDS: Nicotine 14 MG PATCH.TD24 TD SCH (07:58)
[2017-01-27] MEDS: Sennosides/Docusate Sodium TABLET PO SCH ×2 (07:58→21:53)
[2017-01-27] MEDS: risperiDONE 0.25 MG TABLET PO SCH ×2 (07:58→21:54)
[2017-01-27] MEDS: Aspirin 81 MG TAB.CHEW PO SCH (07:58)
[2017-01-27] MEDS ORDERED: 0.9 % Sodium Chloride 1,000 ML PRIME SCH (08:00)
--- NOTE | 2017-01-27 08:41 | Nephrology Progress Note ---
Date of Encounter: 01/27/17 Time of Encounter: 08:35 - Assessment and Plan (1) ESRD on dialysis Current Visit: Yes Status: Chronic HD today, keeping MWF schedule. Orders given. Subjective Interval history: Sitting on edge of bed. Oriented x 3. PT in room. Objective - Vital Signs Vital signs: Vital Signs Temp Pulse Resp BP Pulse Ox 01/27/17 07:27 97.4 F L 110 16 155/88 98 01/27/17 04:28 97.4 F L 63 18 99/61 93 01/27/17 04:14 18 96 01/26/17 23:49 98.0 F 67 18 96/55 92 01/26/17 21:21 18 98 01/26/17 19:18 97.9 F 74 18 115/73 95 01/26/17 16:02 90 01/26/17 15:59 16 93 01/26/17 15:56 97.7 F 76 18 118/72 01/26/17 12:00 91 01/26/17 11:19 116/74 Intake and Output 01/26/17 01/27/17 01/27/17 23:59 07:59 15:59 Intake Total 560 / 560 50 / 50 Balance 560 / 560 50 / 50 Intake: Oral 560 / 560 50 / 50 Other: Meal PUDDING WITH MEDS Percent of Meal Consumed 90% # Voids 1 # Urine Diapers 1 Weight 104.893 kg Patient Weight 01/27/17 23:59 Weight 104.893 kg - General Appearance General appearance: Present: well-developed, well-nourished, appears started age , obese EENT: Present: mucous membranes moist Neck: Present: no JVD Respiratory: Present: clear Cardiology: Present: no edema, regular rate, regular rhythm Gastrointestinal: Present: normoactive bowel sounds, no tenderness Integumentary: Present: warm and dry Neurologic: Present: alert and oriented x3 Psychiatric: Present: mood/affect appropriate, cooperative - Lab 01/27/17 04:20 01/27/17 04:20 Most recent lab results Calcium 8.1 mg/dL (8.6-10.8) L 01/27/17 04:20 Consult Discharge Plan - Plan Referrals: Chilo Lewis Jr, MD [Primary Care Provider] - 01/31/17 11:00 am
--- NOTE | 2017-01-27 10:44 | Internal Med Progress Note ---
Date of Encounter: 01/27/17 Time of Encounter: 10:40 - Assessment and plan (1) Acute and chronic respiratory failure with hypoxia Current Visit: Yes Status: Acute Assessment and plan: Secondary to volume overload on admission and pneumonia Continue O2 Qualify for home O2 today (2) Pneumonia Current Visit: Yes Status: Acute Assessment and plan: CXR done this a.m due to increasing O2 requirement 6.1. showed RLL and MARIA pneumonia Resp panel negative Blood cultures pending Continue management of Cefepime and Vancomycin Sputum culture ordered, pending Qualifiers: Pneumonia type: due to unspecified organism Laterality: bilateral Lung location: unspecified part of lung Qualified Code(s): J18.9 - Pneumonia, unspecified organism (3) COPD (chronic obstructive pulmonary disease) Current Visit: Yes Status: Chronic Assessment and plan: Patient not actively wheezing at time of review Continue duonebs prn Continue O2 supplement prn Qualifiers: COPD type: unspecified COPD Qualified Code(s): J44.9 - Chronic obstructive pulmonary disease, unspecified (4) ESRD on dialysis Current Visit: Yes Status: Chronic Assessment and plan: Renal input appreciated For HD as scheduled (5) Tobacco abuse Current Visit: Yes Status: Chronic Assessment and plan: Counselled on cessation for 3 minutes NRT continue (6) Atrial fibrillation Current Visit: Yes Status: Chronic Assessment and plan: continue home meds HR controlled Not on chronic anticoagulation secondary to chikis hemoptysis in the past Qualifiers: Atrial fibrillation type: chronic Qualified Code(s): I48.2 - Chronic atrial fibrillation (7) CAD (coronary artery disease) Current Visit: Yes Status: Chronic Assessment and plan: Continue home meds Qualifiers: Coronary Disease-Associated Artery/Lesion type: [place] artery [place] vs. transplanted heart: [place] heart Associated angina: without angina Qualified Code(s): I25.10 - Atherosclerotic heart disease of [place] coronary artery without angina pectoris (8) Volume overload Current Visit: Yes Status: Acute Assessment and plan: Secondary to non-compliance with HD Continue O2 HD as per renal Qualifiers: Hypervolemia type: unspecified Qualified Code(s): E87.70 - Fluid overload, unspecified (9) Hypertensive urgency Current Visit: Yes Status: Resolved Assessment and plan: REsolved (10) Discharge planning issues Current Visit: Yes Status: Acute Assessment and plan: Patient with recurrent monthly admissions, lives alone, states he lives with his son Judd, who is a minor, and he is obviously unable to care for himself, PT/OT recommends SNF - Subjective Interval history: Seen and evaluated at bedside 71 M, known ESRD on hemodialysis, hypertension, urinary tract disease status post [place], hyperlipidemia and history of aortic aneurysm, Afib , tobacco abuse, DM , Chronic respiratory failure not on home O2 due to patient refusal Patient is known to be noncompliant with his medications on hemodialysis Patient presented with evidence of accelerated hypertension and mild volume overload with mild pedal edema and chest x-ray evidence of vascular congestion and pneumonia Seen during HD, patient is more co-operative with RN per chart he denies new complains - Constitutional Vitals: Temp Pulse Resp BP Pulse Ox 97.4 F L 110 16 114/67 98 01/27/17 09:15 01/27/17 07:27 01/27/17 09:15 01/27/17 09:15 01/27/17 08:03 General appearance: Present: A&O X 3, pleasant, no acute distress - Head Head exam: Present: atraumatic, normocephalic - Eye Eye exam: Present: PERRL, conjuntiva pink, sclera anicteric Pupils: Present: PERRL - Neck Neck exam general surgery: Present: supple, trachea midline. Absent: lymphadenopathy - Respiratory Respiratory exam: Present: CTAB. Absent: accessory muscle use, rales, rhonchi, wheezes - Cardiovascular Cardiovascular exam: Present: irregular rhythm, RRR, +S1, +S2. Absent: diastolic murmur, gallop, rubs, systolic murmur - GI/Abdominal GI/Abdominal exam: Present: normal bowel sounds, soft, no peritoneal signs. Absent: distended, tenderness - Extremities Exam Extremities exam: Present: warm, radial pulses palpable and symetrical. Absent : calf tenderness, cyanotic, pedal edema Additional comments: RAVF thrill, on HD - Neurological Exam Neurological exam: Present: alert, CN II-XII intact, oriented X3, no focal deficits. Absent: pronater drift, facial droop, speech deficit - Skin Skin exam: Present: dry Internal Medicine: Result - Labs CBC & Chem 7: 01/27/17 04:20 01/27/17 04:20 Labs: Short CBC 01/27/17 Range/Units 04:20 WBC 5.9 (4.3-11.1) K/mcL Hgb 11.2 L (12.9-16.9) g/dL Hct 36.3 L (37.5-50.1) % Plt Count 99 L (140-400) K/mcL Neutrophils # 4.2 (1.6-8.9) K/mcL [facility] 01/27/17 04:20 Sodium 136 Potassium 5.4 H Chloride 97 L Carbon Dioxide 30 H BUN 44 H D Creatinine 5.91 H Glucose 131 H Calcium 8.1 L Consult Discharge Plan - Plan Referrals: Chilo Lewis Jr, MD [Primary Care Provider] - 01/31/17 11:00 am
[2017-01-27] MEDS: Budesonide/Formoterol 160/4.5 MDI IH SCH ×2 (10:46→22:03)
[2017-01-27] MEDS ORDERED: 0.9 % Sodium Chloride 2,000 ML ONE (11:13)
[2017-01-27] MEDS: cloNIDine HCl 0.1 MG TABLET PO SCH (13:48)
[2017-01-27] MEDS: amLODIPine 5 MG TABLET PO SCH (13:49)
[2017-01-27] MEDS: Cefepime HCl 1,000 MG in D5% in Water (Mini-Bag+) 100 ML IVPB SCH (13:50)
[2017-01-27] MEDS ORDERED: Haloperidol Lactate 5 MG/ML VIAL ONE (15:11)
[2017-01-27] MEDS ORDERED: Haloperidol Lactate 5 MG/ML VIAL IVP ONE (15:11)
[2017-01-27] MEDS ORDERED: Haloperidol Lactate 5 MG/ML VIAL IM ONE (15:22)
[2017-01-27] MEDS ORDERED: Vancomycin 1,000 MG in D5% in Water 250 ML IVPB ONE (19:46)
[2017-01-28] MEDS: Haloperidol Lactate 5 MG/ML VIAL IM PRN ×2 (01:50→12:18)
[2017-01-28] MEDS: Ipratropium/Albuterol Neb 3 ML IH SCH ×5 (04:00→22:38)
[2017-01-28 04:27] LABS: Basophils % 0.8 %; Eosinophils # 0.1 K/mcL (0.0-0.6); Eosinophils % 1.5 %; Hematocrit 32.8 % (37.5-50.1); Hemoglobin 10.2 g/dL (12.9-16.9); Immature Granulocytes % 0.4 % (0-4); Lymphocytes # 0.9 K/mcL (0.6-4.6); Lymphocytes % 17.7 %; Mean Corpuscular HGB Conc 31.1 g/dL (31.6-35.5); Mean Corpuscular Hemoglobin 27.3 pg (28.0-33.3); Mean Corpuscular Volume 87.7 fL (83.0-100.0); Mean Platelet Volume 10.8 fL (9.4-12.4); Monocytes # 0.4 K/mcL (0.0-1.3); Monocytes % 7.5 %; Neutrophils # 3.8 K/mcL (1.6-8.9); Platelet Count 100 K/mcL (140-400); Red Blood Count 3.74 M/mcL (4.19-5.50); Segmented Neutrophils % 72.1 %
[2017-01-28 04:39] LABS: Calcium 7.9 mg/dL (8.6-10.8)
[2017-01-28 04:40] LABS: Potassium 4.2 mEq/L (3.5-4.5)
[2017-01-28] MEDS: *HR* Heparin 5,000 UNIT/ML VIAL SQ SCH ×3 (06:16→20:18)
[2017-01-28] MEDS: Sennosides/Docusate Sodium TABLET PO SCH ×2 (07:55→20:19)
[2017-01-28] MEDS: risperiDONE 0.25 MG TABLET PO SCH (07:55)
[2017-01-28] MEDS: Nicotine 14 MG PATCH.TD24 TD SCH (07:56)
[2017-01-28] MEDS: cloNIDine HCl 0.1 MG TABLET PO SCH (07:56)
[2017-01-28] MEDS: amLODIPine 5 MG TABLET PO SCH (07:56)
[2017-01-28] MEDS: Aspirin 81 MG TAB.CHEW PO SCH (07:56)
[2017-01-28] MEDS: Budesonide/Formoterol 160/4.5 MDI IH SCH ×2 (10:49→22:38)
--- NOTE | 2017-01-28 11:00 | Internal Med Progress Note ---
Date of Encounter: 01/28/17 Time of Encounter: 11:00 - Assessment and plan (1) Acute and chronic respiratory failure with hypoxia Current Visit: Yes Status: Acute Assessment and plan: Secondary to volume overload on admission and pneumonia Continue O2 For transfer to SNF when mentally stable (2) Pneumonia Current Visit: Yes Status: Acute Assessment and plan: CXR done this a.m due to increasing O2 requirement 6.1. showed RLL and MARIA pneumonia Resp panel negative Blood cultures prelimm negative Continue management with Cefepime D/C Vancomycin Sputum culture ordered, pending Qualifiers: Pneumonia type: due to unspecified organism Laterality: bilateral Lung location: unspecified part of lung Qualified Code(s): J18.9 - Pneumonia, unspecified organism (3) COPD (chronic obstructive pulmonary disease) Current Visit: Yes Status: Chronic Assessment and plan: Patient not actively wheezing at time of review Continue duonebs prn Continue O2 supplement prn Qualifiers: COPD type: unspecified COPD Qualified Code(s): J44.9 - Chronic obstructive pulmonary disease, unspecified (4) ESRD on dialysis Current Visit: Yes Status: Chronic Assessment and plan: Renal input appreciated For HD as scheduled (5) Tobacco abuse Current Visit: Yes Status: Chronic Assessment and plan: Counselled on cessation for 3 minutes NRT continue (6) Atrial fibrillation Current Visit: Yes Status: Chronic Assessment and plan: continue home meds HR controlled Not on chronic anticoagulation secondary to chikis hemoptysis in the past Qualifiers: Atrial fibrillation type: chronic Qualified Code(s): I48.2 - Chronic atrial fibrillation (7) CAD (coronary artery disease) Current Visit: Yes Status: Chronic Assessment and plan: Continue home meds Qualifiers: Coronary Disease-Associated Artery/Lesion type: [place] artery [place] vs. transplanted heart: [place] heart Associated angina: without angina Qualified Code(s): I25.10 - Atherosclerotic heart disease of [place] coronary artery without angina pectoris (8) Volume overload Current Visit: Yes Status: Acute Assessment and plan: Secondary to non-compliance with HD Continue O2 HD as per renal Qualifiers: Hypervolemia type: unspecified Qualified Code(s): E87.70 - Fluid overload, unspecified (9) Hypertensive urgency Current Visit: Yes Status: Resolved Assessment and plan: REsolved (10) Discharge planning issues Current Visit: Yes Status: Acute Assessment and plan: Patient with recurrent monthly admissions, lives alone, states he lives with his son Judd, who is a minor, and he is obviously unable to care for himself, PT/OT recommends SNF (11) Delirium Current Visit: Yes Status: Acute Assessment and plan: Continue risperodone, haldol Benzos only prn in extreme need Psych has been consulted, patient is very combative - Subjective Interval history: Seen and evaluated at bedside 71 M, known ESRD on hemodialysis, hypertension, urinary tract disease status post [place], hyperlipidemia and history of aortic aneurysm, Afib , tobacco abuse, DM , Chronic respiratory failure not on home O2 due to patient refusal Patient is known to be noncompliant with his medications on hemodialysis Patient presented with evidence of accelerated hypertension and mild volume overload with mild pedal edema and chest x-ray evidence of vascular congestion and pneumonia COntinues to be combative and agitated with staff , refusing treatment He has been placed on restraints and psych consulted His blood cultures are negative His vitals are otherwise stable and his chemistry is at his baseline - Constitutional Vitals: Temp Pulse Resp BP Pulse Ox 98.0 F 97 20 139/77 97 01/28/17 08:50 01/28/17 08:50 01/28/17 10:50 01/28/17 08:50 01/28/17 10:50 General appearance: Present: A&O X 2, no acute distress - Head Head exam: Present: atraumatic, normocephalic - Eye Eye exam: Present: PERRL, conjuntiva pink, sclera anicteric Pupils: Present: PERRL - Neck Neck exam general surgery: Present: supple, trachea midline. Absent: lymphadenopathy - Respiratory Respiratory exam: Present: CTAB. Absent: accessory muscle use, rales, rhonchi, wheezes - Cardiovascular Cardiovascular exam: Present: irregular rhythm, +S1, +S2. Absent: diastolic murmur, gallop, rubs, systolic murmur - GI/Abdominal GI/Abdominal exam: Present: normal bowel sounds, soft, no peritoneal signs. Absent: distended, tenderness - Extremities Exam Extremities exam: Present: warm, radial pulses palpable and symetrical. Absent : calf tenderness, cyanotic, pedal edema Additional comments: RUE AVF - Neurological Exam Neurological exam: Present: alert, CN II-XII intact, no focal deficits. Absent : oriented X3, pronater drift, facial droop, speech deficit - Skin Skin exam: Present: dry Internal Medicine: Result - Labs CBC & Chem 7: 01/28/17 04:20 01/28/17 04:20 Labs: Short CBC 01/28/17 Range/Units 04:20 WBC 5.3 (4.3-11.1) K/mcL Hgb 10.2 L (12.9-16.9) g/dL Hct 32.8 L (37.5-50.1) % Plt Count 100 L (140-400) K/mcL Neutrophils # 3.8 (1.6-8.9) K/mcL BMP 01/28/17 04:20 Sodium 139 Potassium 4.2 D Chloride 101 Carbon Dioxide 30 H BUN 34 H D Creatinine 5.08 H Glucose 102 H Calcium 7.9 L Consult Discharge Plan - Plan Referrals: Chilo Lewis Jr, MD [Primary Care Provider] - 01/31/17 11:00 am
--- NOTE | 2017-01-28 12:22 | Nephrology Progress Note ---
Date of Encounter: 01/28/17 Time of Encounter: 12:06 - Assessment and Plan (1) ESRD on dialysis Current Visit: Yes Status: Chronic 1. ESRD. No acute indication for HD today Check serum phosphate, alb level. cont cinacalcet 2. HTN, BP stable. Refused to take meds this morning. DC clonidine as it is once a day dosing 3. Anemia of chronic disease, hemoglobin stable Subjective Principal diagnosis: esrd Interval history: 71 yr old with ESRD presented to ER with shortness of breath after missing a dialysis session. He is noncompliant with meds, BP was elevated with systolic of 200. Chest x- ray on admission; pulmonary vascular congestion. He was dialyzed yesterday. CXR 01/26; rt lower lobe, lt upper lobe opacities. On cefepime and vancomycin. He is afebrile, BP stable, requiring 5 L of O2. He became confused, combative, billigerent since last evening, security was called, currently has a sitter. Received Haldol earlier today Awake, c/o pain in the legs, not answering questions appropriately Objective - Vital Signs Vital signs: Vital Signs Temp Pulse Resp BP Pulse Ox 01/28/17 10:50 20 97 01/28/17 08:50 98.0 F 97 22 139/77 93 01/28/17 08:32 94 01/28/17 04:05 86 18 92/56 100 01/28/17 00:27 97 01/27/17 23:45 98.0 F 87 16 116/58 97 01/27/17 22:03 16 98 01/27/17 21:49 98.1 F 99 16 103/60 100 01/27/17 18:20 99 01/27/17 14:00 96 01/27/17 13:37 102 16 138/84 97 01/27/17 12:50 97.4 F L 16 127/87 01/27/17 12:45 115/85 01/27/17 12:30 118/68 01/27/17 12:15 128/79 Intake and Output 01/27/17 01/28/17 01/28/17 23:59 07:59 15:59 Intake Total 0 / 0 480 / 480 Output Total 0 / 0 Balance 0 / 0 480 / 480 Intake: Oral 0 / 0 480 / 480 Output: Urine 0 / 0 Other: Meal Breakfast Percent of Meal Consumed 100% # Voids 1 Weight 111.584 kg Patient Weight 01/28/17 23:59 Weight 111.584 kg - General Appearance Exam: CVS; s1s2 present, regular, no murmurs RESP; good air entry, clear anteriorly ABD; soft, NT EXT; no edema. rt UA AVF has bruit [employer]; awake, moving extremities - Lab 01/28/17 04:20 01/28/17 04:20 Most recent lab results Calcium 7.9 mg/dL (8.6-10.8) L 01/28/17 04:20 Consult Discharge Plan - Plan Referrals: Chilo Lewis Jr, MD [Primary Care Provider] - 01/31/17 11:00 am
[2017-01-28] MEDS ORDERED: *HR* LORazepam 2 MG/ML VIAL IVP ONE (12:31)
[2017-01-28 12:49] LABS: Albumin 2.9 g/dL (3.5-5.0); Phosphorous 4.2 mg/dL (2.3-4.7)
[2017-01-28] MEDS: Cefepime HCl 1,000 MG in D5% in Water (Mini-Bag+) 100 ML IVPB SCH (15:26)
--- NOTE | 2017-01-28 15:29 | Consult Note ---
Date of Encounter: 01/28/17 Time of Encounter: 15:00 Assessment & Recommendation (1) Delirium due to multiple etiologies Current visit: Yes Status: Acute Assessment & Recommendation: 1. Medical stabilization of metabolic, renal, respiratory disorders, causing delirium 2. For agitation and combativeness: A. Haldol in small doses 1-2 mg 2-3 times a day by mouth or IM can be given as scheduled doses B. Alternatively Geodon 20-40 mg by mouth or IM can be given when necessary or as scheduled doses C. Benzodiazepine are not recommended because they worsen the delirium. Thank you for consultation and please address any questions. History of Present Illness Patient: new to practice Requesting Physician: Cornel Godwin MD Reason for consult: Medication recommendation for agitation History of present illness: Mr. Hernandez is a 71 year old male admitted to the hospital for treatment of multiple conditions including ESRD, acute on chronic respiratory failure, COPD, hypertension, etc. Psychiatric consultation was requested for medication recommendation to manage patient agitation and combativeness. Nursing staff report patient has been on dialysis for a long time and his agitation and combativeness are new behaviors. Small doses of Haldol has been effective in controlling patient agitation. On interview with the patient was lying in bed and deeply sedated after medication and could not be interviewed. CC: Cornel Godwin MD Past Med Surg Social Fam HX - Past Medical History Medical history: aortic aneurysm, diabetes, dialysis, hyperlipidemia, hypertension, myocardial infarction, renal disease, other - Past Surgical History Surgical History: angioplasty/stent (x3), cholecystectomy, other (AAA repair, left knee surgery.) - Social History Smoking Status: Current every day smoker Smokeless Tobacco Status: No Alcohol use: rarely Drug use: none - Family History Mother Hx Family Cardiac Disorders: Yes (HTN) Father Adopted: No Living Status: Hx Family Cardiac Disorders: Yes (HTN) Hx Family Respiratory Disorders: No Hx Family Cancer: Yes Hx Family GI Disorders: No Hx Family Endocrine Disorder: No Hx Family Neuromuscular Disorders: No Hx Family Neurologic Disorders: No Hx Family HEENT Disorders: No Hx Family Autoimmune Disorders: No Medications & Allergies Carvedilol [Coreg] 25 mg PO BID 09/08/15 [History] cloNIDine HCl [CloNIDine HCl] 0.1 mg PO QAM 09/08/15 [History] Albuterol Neb [AccuNeb] 1.25 mg IH Q4H PRN 09/21/16 [History] Budesonide/Formoterol 160/4.5 [Symbicort 160/4.5] 2 puff IH BIDR 09/22/16 [ History] Cinacalcet [Sensipar] 30 mg PO DAILY 09/22/16 [History] Omeprazole [PriLOSEC] 20 mg PO DAILY 09/22/16 [History] amLODIPine [Norvasc] 5 mg PO DAILY 09/22/16 [History] Aspirin 81 mg PO DAILY #0 tab.chew 09/28/16 [Rx] Oxycodone HCl 15 mg PO Q6H PRN #20 tablet 09/28/16 [Rx] Losartan [Cozaar] 50 mg PO BID 12/14/16 [History] Allergies rofecoxib [From Vioxx] Allergy (Verified 01/24/17 09:30) Swelling of Lip/Tongue/Throat Mental Status Exam Additional observations: Patient is deeply asleep and lethargic after medication would not be interviewed. Results - Vital Signs Vital signs: Temp Pulse Resp BP Pulse Ox 98.3 F 94 18 142/79 96 01/28/17 12:00 01/28/17 12:00 01/28/17 12:00 01/28/17 12:00 01/28/17 12:00 - Labs Labs: Laboratory Last Values WBC 5.3 K/mcL (4.3-11.1) 01/28/17 04:20 RBC 3.74 M/mcL (4.19-5.50) L 01/28/17 04:20 Hgb 10.2 g/dL (12.9-16.9) L 01/28/17 04:20 Hct 32.8 % (37.5-50.1) L 01/28/17 04:20 MCV 87.7 fL (83.0-100.0) 01/28/17 04:20 MCH 27.3 pg (28.0-33.3) L 01/28/17 04:20 MCHC 31.1 g/dL (31.6-35.5) L 01/28/17 04:20 RDW 18.0 % (11.5-14.5) H 01/28/17 04:20 Plt Count 100 K/mcL (140-400) L 01/28/17 04:20 MPV 10.8 fL (9.4-12.4) 01/28/17 04:20 Immature Gran % 0.4 % (0-4) 01/28/17 04:20 Seg Neutrophils % 72.1 % 01/28/17 04:20 Lymphocytes % 17.7 % 01/28/17 04:20 Monocytes % 7.5 % 01/28/17 04:20 Eosinophils % 1.5 % 01/28/17 04:20 Basophils % 0.8 % 01/28/17 04:20 Neutrophils # 3.8 K/mcL (1.6-8.9) 01/28/17 04:20 Lymphocytes # 0.9 K/mcL (0.6-4.6) 01/28/17 04:20 Monocytes # 0.4 K/mcL (0.0-1.3) 01/28/17 04:20 Eosinophils # 0.1 K/mcL (0.0-0.6) 01/28/17 04:20 Basophils # 0.0 K/mcL (0.0-0.2) 01/28/17 04:20 Nucleated RBCs/100 WBC 0.3 /100 WBC (0) H 01/27/17 04:20 Immature Plt Fraction 5.9 % (1.1-6.1) 01/27/17 04:20 Sodium 139 mEq/L (136-145) 01/28/17 04:20 Potassium 4.2 mEq/L (3.5-4.5) D 01/28/17 04:20 Chloride 101 mEq/L (98-109) 01/28/17 04:20 Carbon Dioxide 30 mEq/L (19-29) H 01/28/17 04:20 BUN 34 mg/dL (8-26) H D 01/28/17 04:20 Creatinine 5.08 mg/dL (0.72-1.25) H 01/28/17 04:20 Est GFR ( Amer) 14 (> 60) L 01/28/17 04:20 Est GFR (Non-Af Amer) 11 (> 60) L 01/28/17 04:20 BUN/Creatinine Ratio 7 (6-26) 01/28/17 04:20 Glucose 102 mg/dL (70-99) H 01/28/17 04:20 Calculated Osmolality 296 (280-300) 01/28/17 04:20 Calcium 7.9 mg/dL (8.6-10.8) L 01/28/17 04:20 Phosphorus 4.2 mg/dL (2.3-4.7) 01/28/17 04:20 Troponin I 0.11 ng/mL (0-0.03) H* 01/24/17 04:29 B-Natriuretic Peptide 2877 pg/mL (0-100) H 01/23/17 22:17 Albumin 2.9 g/dL (3.5-5.0) L 01/28/17 04:20 Vancomycin Trough 11.9 mcg/mL (10-20) 01/27/17 18:55 Chlamy pneumoniae PCR Not Detected (Not Detect) 01/26/17 19:15 Adenovirus (PCR) Not Detected (Not Detect) 01/26/17 19:15 B. pertussis DNA (PCR) Not Detected (Not Detect) 01/26/17 19:15 Coronavirus OC43 (PCR) Not Detected (Not Detect) 01/26/17 19:15 Coronavirus HKU1 (PCR) Not Detected (Not Detect) 01/26/17 19:15 Coronavirus 229E (PCR) Not Detected (Not Detect) 01/26/17 19:15 Coronavirus NL63 (PCR) Not Detected (Not Detect) 01/26/17 19:15 Hep Bs Antigen Nonreactive (Nonreactive) 01/24/17 09:45 Hep Bs Antibody 0.59 mIU/mL 01/24/17 09:45 Human Metapneumovirus Not Detected (Not Detect) 01/26/17 19:15 Influenza A (H1) PCR Not Detected (Not Detect) 01/26/17 19:15 Influ A (H1N1/09) PCR Not Detected (Not Detect) 01/26/17 19:15 Influenza A (H3) PCR Not Detected (Not Detect) 01/26/17 19:15 Influenza A Untype (PCR) Not Detected (Not Detect) 01/26/17 19:15 Influenza Type B (PCR) Not Detected (Not Detect) 01/26/17 19:15 M.pneumoniae DNA (PCR) Not Detected (Not Detect) 01/26/17 19:15 Parainfluenza 1 (PCR) Not Detected (Not Detect) 01/26/17 19:15 Parainfluenza 2 (PCR) Not Detected (Not Detect) 01/26/17 19:15 Parainfluenza 3 (PCR) Not Detected (Not Detect) 01/26/17 19:15 Parainfluenza 4 (PCR) Not Detected (Not Detect) 01/26/17 19:15 RSV (PCR) Not Detected (Not Detect) 01/26/17 19:15 Entero/Rhino (PCR) Not Detected (Not Detect) 01/26/17 19:15 Consult Discharge Plan - Plan Referrals: Chilo Lewis Jr, MD [Primary Care Provider] - 01/31/17 11:00 am
[2017-01-28 16:50] LABS: ABG Base Excess 4.4 mEq/L (-2.0 to 3.0); ABG HCO3 32.5 mEQ/L (21-27); ABG Oxygen Saturation 90 % (95-98); ABG PCO2 66 mmHg (35-45); ABG PO2 66 mmHg (85-104); ABG TCO2 34.5 mEq/L (20-26)
[2017-01-28 16:51] LABS: Blood Gas Liter Flow 4 L/MIN
[2017-01-28 16:52] LABS: Blood Gas FiO2 36 %
[2017-01-28] MEDS: Ziprasidone 20 MG CAPSULE PO SCH (20:19)
[2017-01-29] MEDS: Ipratropium/Albuterol Neb 3 ML IH SCH ×3 (03:57→15:42)
[2017-01-29 04:07] LABS: Basophils % 0.5 %; Eosinophils # 0.1 K/mcL (0.0-0.6); Hematocrit 35.1 % (37.5-50.1); Hemoglobin 10.8 g/dL (12.9-16.9); Immature Granulocytes % 0.2 % (0-4); Lymphocytes # 0.9 K/mcL (0.6-4.6); Lymphocytes % 16.6 %; Mean Corpuscular HGB Conc 30.8 g/dL (31.6-35.5); Mean Corpuscular Hemoglobin 26.9 pg (28.0-33.3); Mean Corpuscular Volume 87.5 fL (83.0-100.0); Mean Platelet Volume 9.9 fL (9.4-12.4); Monocytes # 0.5 K/mcL (0.0-1.3); Neutrophils # 3.9 K/mcL (1.6-8.9); Platelet Count 101 K/mcL (140-400); Red Blood Count 4.01 M/mcL (4.19-5.50); Red Cell Distribution Width 17.9 % (11.5-14.5); Segmented Neutrophils % 71.7 %
[2017-01-29 04:21] LABS: Calcium 8.3 mg/dL (8.6-10.8); Potassium 4.5 mEq/L (3.5-4.5)
[2017-01-29] MEDS: *HR* Heparin 5,000 UNIT/ML VIAL SQ SCH ×4 (05:41→20:02)
[2017-01-29] MEDS: Sennosides/Docusate Sodium TABLET PO SCH ×3 (08:22→20:02)
[2017-01-29] MEDS: Aspirin 81 MG TAB.CHEW PO SCH ×2 (08:22→08:38)
[2017-01-29] MEDS: Ziprasidone 20 MG CAPSULE PO SCH ×4 (08:22→20:02)
[2017-01-29] MEDS: amLODIPine 5 MG TABLET PO SCH ×2 (08:23→08:38)
[2017-01-29] MEDS: Nicotine 14 MG PATCH.TD24 TD SCH ×2 (08:23→08:38)
--- NOTE | 2017-01-29 09:58 | Internal Med Progress Note ---
Date of Encounter: 01/29/17 Time of Encounter: 09:58 - Assessment and plan (1) Acute and chronic respiratory failure with hypoxia Current Visit: Yes Status: Acute Assessment and plan: Secondary to volume overload on admission and pneumonia Continue O2 For transfer to SNF when accepted (2) Pneumonia Current Visit: Yes Status: Acute Assessment and plan: CXR done showed RLL and MARIA pneumonia Resp panel negative Blood cultures prelimm negative Continue management with Cefepime -Day 4 Qualifiers: Pneumonia type: due to unspecified organism Laterality: bilateral Lung location: unspecified part of lung Qualified Code(s): J18.9 - Pneumonia, unspecified organism (3) COPD (chronic obstructive pulmonary disease) Current Visit: Yes Status: Chronic Assessment and plan: Patient not actively wheezing at time of review Continue duonebs prn Continue O2 supplement prn Qualifiers: COPD type: unspecified COPD Qualified Code(s): J44.9 - Chronic obstructive pulmonary disease, unspecified (4) ESRD on dialysis Current Visit: Yes Status: Chronic Assessment and plan: Renal input appreciated For HD as scheduled (5) Tobacco abuse Current Visit: Yes Status: Chronic Assessment and plan: Counselled on cessation for 3 minutes NRT continue (6) Atrial fibrillation Current Visit: Yes Status: Chronic Assessment and plan: continue home meds HR controlled Not on chronic anticoagulation secondary to chikis hemoptysis in the past Qualifiers: Atrial fibrillation type: chronic Qualified Code(s): I48.2 - Chronic atrial fibrillation (7) CAD (coronary artery disease) Current Visit: Yes Status: Chronic Assessment and plan: Continue home meds Qualifiers: Coronary Disease-Associated Artery/Lesion type: [place] artery [place] vs. transplanted heart: [place] heart Associated angina: without angina Qualified Code(s): I25.10 - Atherosclerotic heart disease of [place] coronary artery without angina pectoris (8) Volume overload Current Visit: Yes Status: Acute Assessment and plan: Secondary to non-compliance with HD Continue O2 HD as per renal Qualifiers: Hypervolemia type: unspecified Qualified Code(s): E87.70 - Fluid overload, unspecified (9) Hypertensive urgency Current Visit: Yes Status: Resolved Assessment and plan: REsolved (10) Discharge planning issues Current Visit: Yes Status: Acute Assessment and plan: Patient with recurrent monthly admissions, lives alone, states he lives with his son Judd, who is a minor, and he is obviously unable to care for himself, PT/OT recommends SNF awaiting placement (11) Delirium Current Visit: Yes Status: Acute Assessment and plan: Continue geodon 20mg bid Haldol prn - Subjective Interval history: Seen and evaluated at bedside 71 M, known ESRD on hemodialysis, hypertension, urinary tract disease status post [place], hyperlipidemia and history of aortic aneurysm, Afib , tobacco abuse, DM , Chronic respiratory failure not on home O2 due to patient refusal Patient is known to be noncompliant with his medications on hemodialysis Patient presented with evidence of accelerated hypertension and mild volume overload with mild pedal edema and chest x-ray evidence of vascular congestion and pneumonia Patient has been calm for several hrs At time of review, oriented to place and person Awaiting SNF placement - Constitutional Vitals: Temp Pulse Resp BP Pulse Ox 97.6 F 101 16 165/101 99 01/29/17 08:02 01/29/17 08:02 01/29/17 08:02 01/29/17 08:02 01/29/17 08:02 General appearance: Present: A&O X 2, no acute distress - Head Head exam: Present: atraumatic, normocephalic - Eye Eye exam: Present: PERRL, conjuntiva pink, sclera anicteric Pupils: Present: PERRL - Neck Neck exam general surgery: Present: supple, trachea midline. Absent: lymphadenopathy - Respiratory Respiratory exam: Present: CTAB. Absent: accessory muscle use, rales, rhonchi, wheezes - Cardiovascular Cardiovascular exam: Present: irregular rhythm, +S1, +S2. Absent: diastolic murmur, gallop, rubs, systolic murmur - GI/Abdominal GI/Abdominal exam: Present: normal bowel sounds, soft, no peritoneal signs. Absent: distended, tenderness - Extremities Exam Extremities exam: Present: warm, radial pulses palpable and symetrical. Absent : calf tenderness, cyanotic, pedal edema - Neurological Exam Neurological exam: Present: alert, CN II-XII intact, no focal deficits. Absent : oriented X3, pronater drift, facial droop, speech deficit - Skin Skin exam: Present: dry, intact Internal Medicine: Result - Labs CBC & Chem 7: 01/29/17 04:00 01/29/17 04:00 Labs: Short CBC 01/29/17 Range/Units 04:00 WBC 5.5 (4.3-11.1) K/mcL Hgb 10.8 L (12.9-16.9) g/dL Hct 35.1 L (37.5-50.1) % Plt Count 101 L (140-400) K/mcL Neutrophils # 3.9 (1.6-8.9) K/mcL BMP 01/29/17 04:00 Sodium 135 L Potassium 4.5 Chloride 97 L Carbon Dioxide 28 BUN 53 H D Creatinine 6.38 H Glucose 130 H Calcium 8.3 L Liver Function 01/28/17 Range/Units 04:20 Albumin 2.9 L (3.5-5.0) g/dL - ABG Interpretation ABG results: ABG ABG pH 7.30 pH Units (7.32-7.45) L 01/28/17 16:20 ABG pCO2 66 mmHg (35-45) H 01/28/17 16:20 ABG pO2 66 mmHg (85-104) L 01/28/17 16:20 ABG O2 Saturation 90 % (95-98) L 01/28/17 16:20 Consult Discharge Plan - Plan Referrals: Chilo Lewis Jr, MD [Primary Care Provider] - 01/31/17 11:00 am
[2017-01-29] MEDS: Budesonide/Formoterol 160/4.5 MDI IH SCH ×2 (10:56→10:57)
--- NOTE | 2017-01-29 12:44 | Nephrology Progress Note ---
Date of Encounter: 01/29/17 Time of Encounter: 12:37 - Assessment and Plan (1) ESRD on dialysis Current Visit: Yes Status: Chronic 1. ESRD. plan for HD in a.m serum potassium, phosphate and corrected calcium are nl. cont cinacalcet 2. HTN, BP stable. resume PO meds when he is able to, cont prn labetalol 3. Anemia of chronic disease, hemoglobin stable at 10.8 Subjective Principal diagnosis: esrd Interval history: seen by psychiatry service yesterday for agitation and confusion, prn Geodon was started. has been calm, sleepy for most of the time. has not taken PO BP meds, gets prn iv labetalol Objective - Vital Signs Vital signs: Vital Signs Temp Pulse Resp BP Pulse Ox 01/29/17 11:18 97.6 F 82 16 131/64 95 01/29/17 08:02 97.6 F 101 16 165/101 99 01/29/17 04:10 98.2 F 83 17 153/84 95 01/29/17 03:58 18 98 01/29/17 00:02 98.1 F 89 17 104/68 97 01/28/17 20:00 98.2 F 88 17 168/90 95 01/28/17 16:21 97.6 F 82 16 130/77 96 01/28/17 15:22 98.3 F 94 18 142/79 96 Intake and Output 01/28/17 01/29/17 01/29/17 23:59 07:59 15:59 Intake Total 1600 / 1600 850 / 850 0 / 0 Output Total 0 / 0 Balance 1600 / 1600 850 / 850 0 / 0 Intake: Oral 600 / 600 850 / 850 0 / 0 Free Water 1000 / 1000 Output: Urine 0 / 0 Other: Meal pack of goldfish & cora grams Percent of Meal Consumed 100% # Voids 1 Blood Glucose* 139 - General Appearance Exam: CVS; s1s2 present, regular RESP; good air entry ABD; soft, NT, BS present EXT; no edema - Lab 01/29/17 04:00 01/29/17 04:00 Most recent lab results ABG pH 7.30 pH Units (7.32-7.45) L 01/28/17 16:20 ABG pCO2 66 mmHg (35-45) H 01/28/17 16:20 ABG pO2 66 mmHg (85-104) L 01/28/17 16:20 ABG HCO3 32.5 mEQ/L (21-27) H 01/28/17 16:20 ABG O2 Saturation 90 % (95-98) L 01/28/17 16:20 Calcium 8.3 mg/dL (8.6-10.8) L 01/29/17 04:00 Phosphorus 4.2 mg/dL (2.3-4.7) 01/28/17 04:20 Consult Discharge Plan - Plan Referrals: Chilo Lewis Jr, MD [Primary Care Provider] - 01/31/17 11:00 am
[2017-01-29] MEDS: Cefepime HCl 1,000 MG in D5% in Water (Mini-Bag+) 100 ML IVPB SCH (14:14)
[2017-01-30] MEDS: Ipratropium/Albuterol Neb 3 ML IH SCH ×6 (00:05→22:35)
[2017-01-30] MEDS: Budesonide/Formoterol 160/4.5 MDI IH SCH ×3 (00:05→22:35)
[2017-01-30] MEDS: *HR* Heparin 5,000 UNIT/ML VIAL SQ SCH ×3 (05:16→20:21)
[2017-01-30] MEDS ORDERED: 0.9 % Sodium Chloride 250 ML IVC PRN (08:23)
--- NOTE | 2017-01-30 08:23 | Nephrology Progress Note ---
Date of Encounter: 01/30/17 Time of Encounter: 08:21 - Assessment and Plan (1) ESRD on dialysis Current Visit: Yes Status: Chronic The patient will undergo dialysis today. Orders have been submitted. Hemoglobin is stable at 10.8. Blood pressure stable at 131/84. Potassium is 4.5 so the patient will be dialyzed on a 3K bath. (2) Benign hypertension with end-stage renal disease Current Visit: Yes Status: Acute (3) Atrial fibrillation Current Visit: Yes Status: Chronic Qualifiers: Atrial fibrillation type: chronic Qualified Code(s): I48.2 - Chronic atrial fibrillation (4) CAD (coronary artery disease) Current Visit: Yes Status: Chronic Qualifiers: Coronary Disease-Associated Artery/Lesion type: [place] artery [place] vs. transplanted heart: [place] heart Associated angina: without angina Qualified Code(s): I25.10 - Atherosclerotic heart disease of [place] coronary artery without angina pectoris Subjective Principal diagnosis: esrd Interval history: The patient is lethargic. When he awakens he appears confused. The patient's caregiver reports that the patient was agitated during the night. Vital signs are stable. Patient will undergo dialysis today. Psychiatric input has been reviewed. Objective - Vital Signs Vital signs: Vital Signs Temp Pulse Resp BP Pulse Ox 01/30/17 04:25 16 96 01/30/17 03:30 97.5 F L 75 18 135/84 97 01/29/17 23:23 97.7 F 81 17 115/71 95 01/29/17 19:45 97.3 F L 98 17 156/88 95 01/29/17 15:42 18 92 01/29/17 15:13 97.9 F 83 19 135/83 92 01/29/17 11:18 97.6 F 82 16 131/64 95 01/29/17 10:59 18 91 Intake and Output 01/29/17 01/30/17 01/30/17 23:59 07:59 15:59 Intake Total 540 / 540 Output Total 100 / 100 Balance 440 / 440 Intake: Oral 540 / 540 Output: Urine 100 / 100 Other: Meal PUDDING, CRACKERS AND SODA Percent of Meal Consumed 100% # Voids 1 Weight 112.5 kg - General Appearance Exam: Patient is confused. He appears to be in no acute distress. Lungs diminished breath sounds. Heart irregular rate and rhythm. Abdomen is obese. No tenderness guarding or rigidity. There is minimal lower extremity swelling. There is a functioning AV fistula in the right arm. - Lab 01/29/17 04:00 01/29/17 04:00 Most recent lab results ABG pH 7.30 pH Units (7.32-7.45) L 01/28/17 16:20 ABG pCO2 66 mmHg (35-45) H 01/28/17 16:20 ABG pO2 66 mmHg (85-104) L 01/28/17 16:20 ABG HCO3 32.5 mEQ/L (21-27) H 01/28/17 16:20 ABG O2 Saturation 90 % (95-98) L 01/28/17 16:20 Calcium 8.3 mg/dL (8.6-10.8) L 01/29/17 04:00 Phosphorus 4.2 mg/dL (2.3-4.7) 01/28/17 04:20 Consult Discharge Plan - Plan Referrals: Chilo Lewis Jr, MD [Primary Care Provider] - 01/31/17 11:00 am
[2017-01-30] MEDS: Ziprasidone 20 MG CAPSULE PO SCH ×3 (08:32→20:15)
[2017-01-30] MEDS: amLODIPine 5 MG TABLET PO SCH ×2 (08:32→10:26)
[2017-01-30] MEDS: Nicotine 14 MG PATCH.TD24 TD SCH (08:33)
[2017-01-30] MEDS: Sennosides/Docusate Sodium TABLET PO SCH ×3 (08:33→20:15)
[2017-01-30] MEDS: Aspirin 81 MG TAB.CHEW PO SCH ×2 (08:33→10:23)
--- NOTE | 2017-01-30 09:43 | Internal Med Progress Note ---
Date of Encounter: 01/30/17 Time of Encounter: 09:10 - Assessment and plan (1) Acute and chronic respiratory failure with hypoxia Current Visit: Yes Status: Acute Assessment and plan: Secondary to volume overload on admission-now resolved and pneumonia Continue O2 For transfer to SNF when accepted (2) Pneumonia Current Visit: Yes Status: Acute Assessment and plan: CXR done showed RLL and MARIA pneumonia Resp panel negative Blood cultures prelim negative Continue management with Cefepime -Day 5 Received Vanco for 2 days, discontinued Qualifiers: Pneumonia type: due to unspecified organism Laterality: bilateral Lung location: unspecified part of lung Qualified Code(s): J18.9 - Pneumonia, unspecified organism (3) COPD (chronic obstructive pulmonary disease) Current Visit: Yes Status: Chronic Assessment and plan: Patient not actively wheezing at time of review Continue duonebs prn Continue O2 supplement prn Qualifiers: COPD type: unspecified COPD Qualified Code(s): J44.9 - Chronic obstructive pulmonary disease, unspecified (4) ESRD on dialysis Current Visit: Yes Status: Chronic Assessment and plan: Renal input appreciated For HD as scheduled (5) Tobacco abuse Current Visit: Yes Status: Chronic Assessment and plan: Counselled on cessation for 3 minutes NRT continue (6) Atrial fibrillation Current Visit: Yes Status: Chronic Assessment and plan: continue home meds HR controlled Not on chronic anticoagulation secondary to chikis hemoptysis in the past Qualifiers: Atrial fibrillation type: chronic Qualified Code(s): I48.2 - Chronic atrial fibrillation (7) CAD (coronary artery disease) Current Visit: Yes Status: Chronic Assessment and plan: Continue home meds Qualifiers: Coronary Disease-Associated Artery/Lesion type: [place] artery [place] vs. transplanted heart: [place] heart Associated angina: without angina Qualified Code(s): I25.10 - Atherosclerotic heart disease of [place] coronary artery without angina pectoris (8) Volume overload Current Visit: Yes Status: Resolved Assessment and plan: Secondary to non-compliance with HD Continue O2 HD as per renal Qualifiers: Hypervolemia type: unspecified Qualified Code(s): E87.70 - Fluid overload, unspecified (9) Hypertensive urgency Current Visit: Yes Status: Resolved Assessment and plan: REsolved (10) Discharge planning issues Current Visit: Yes Status: Acute Assessment and plan: Patient with recurrent monthly admissions, lives alone, states he lives with his son Judd, who is a minor, and he is obviously unable to care for himself, PT/OT recommends SNF Now with sitter, and having hyperactive delirium awaiting placement (11) Delirium Current Visit: Yes Status: Acute Assessment and plan: Continue geodon 20mg bid Haldol prn Avoid benzos - Subjective Interval history: Seen and evaluated at bedside 71 M, known ESRD on hemodialysis, hypertension, urinary tract disease status post [place], hyperlipidemia and history of aortic aneurysm, Afib , tobacco abuse, DM , Chronic respiratory failure not on home O2 due to patient refusal Patient is known to be noncompliant with his medications on hemodialysis Patient presented with evidence of accelerated hypertension and mild volume overload with mild pedal edema and chest x-ray evidence of vascular congestion and pneumonia Hospital stay complicated by hyperactive delirium, requiring multiple doses of haldol and psych eval, also on geodon Per RN, patient has been sitting at the edge of the ebd, falling asleep, refusing to be helped to lay in bed He also spit out his po meds this morning Per SW he continues to need a sitter hence placement will require at least 24 hrs without a sitter He will undergo HD today He refused to talk to me but allowed physical exam - Constitutional Vitals: Temp Pulse Resp BP Pulse Ox 97.6 F 98 16 127/90 92 01/30/17 08:37 01/30/17 08:37 01/30/17 08:37 01/30/17 08:37 01/30/17 08:37 General appearance: Present: no acute distress. Absent: A&O X 0 Exam: Unable to assess mentation, patient refuses to talk - Head Head exam: Present: atraumatic, normocephalic - Eye Eye exam: Present: PERRL, conjuntiva pink, sclera anicteric Pupils: Present: PERRL - Neck Neck exam general surgery: Present: supple, trachea midline. Absent: lymphadenopathy - Respiratory Respiratory exam: Present: rhonchi (RLL base). Absent: accessory muscle use, rales, wheezes - Cardiovascular Cardiovascular exam: Present: irregular rhythm, +S1, +S2. Absent: diastolic murmur, gallop, rubs, systolic murmur - GI/Abdominal GI/Abdominal exam: Present: normal bowel sounds, soft, no peritoneal signs. Absent: distended, tenderness - Extremities Exam Extremities exam: Present: warm, radial pulses palpable and symetrical. Absent : calf tenderness, cyanotic, pedal edema Additional comments: R AVF thrill - Neurological Exam Neurological exam: Present: alert, CN II-XII intact, no focal deficits. Absent : oriented X3, pronater drift, facial droop, speech deficit - Skin Skin exam: Present: dry, intact Internal Medicine: Result - Labs CBC & Chem 7: 01/29/17 04:00 01/29/17 04:00 - ABG Interpretation ABG results: ABG ABG pH 7.30 pH Units (7.32-7.45) L 01/28/17 16:20 ABG pCO2 66 mmHg (35-45) H 01/28/17 16:20 ABG pO2 66 mmHg (85-104) L 01/28/17 16:20 ABG O2 Saturation 90 % (95-98) L 01/28/17 16:20 Consult Discharge Plan - Plan Referrals: Chilo Lewis Jr, MD [Primary Care Provider] - 01/31/17 11:00 am
[2017-01-30] MEDS ORDERED: Aminoglycoside Consult 1 EACH MC ONE (16:32)
[2017-01-30] MEDS: Cefepime HCl 1,000 MG in D5% in Water (Mini-Bag+) 100 ML IVPB SCH (16:53)
[2017-01-31] MEDS: Ipratropium/Albuterol Neb 3 ML IH SCH ×2 (04:18→10:34)
[2017-01-31] MEDS: *HR* Heparin 5,000 UNIT/ML VIAL SQ SCH ×3 (06:07→22:02)
[2017-01-31] MEDS: Sennosides/Docusate Sodium TABLET PO SCH ×2 (10:32→22:02)
[2017-01-31] MEDS: Aspirin 81 MG TAB.CHEW PO SCH (10:32)
[2017-01-31] MEDS: amLODIPine 5 MG TABLET PO SCH (10:32)
[2017-01-31] MEDS: Ziprasidone 20 MG CAPSULE PO SCH (10:32)
[2017-01-31] MEDS: Budesonide/Formoterol 160/4.5 MDI IH SCH ×2 (10:34→22:41)
[2017-01-31] MEDS: Nicotine 14 MG PATCH.TD24 TD SCH (10:45)
[2017-01-31] MEDS ORDERED: Ipratropium/Albuterol Neb 3 ML IH PRN (12:00)
--- NOTE | 2017-01-31 15:34 | Internal Med Progress Note ---
Date of Encounter: 01/31/17 Time of Encounter: 10:00 - Assessment and plan (1) Acute and chronic respiratory failure with hypoxia Current Visit: Yes Status: Acute Assessment and plan: Currently on 4 L nasal cannula O2 supplementation. Continue to wean as tolerated. Due to pneumonia and COPD. (2) Atrial fibrillation Current Visit: Yes Status: Chronic Assessment and plan: Heart rate is well controlled. Continue carvedilol Qualifiers: Atrial fibrillation type: chronic Qualified Code(s): I48.2 - Chronic atrial fibrillation (3) Benign hypertension with end-stage renal disease Current Visit: Yes Status: Chronic Assessment and plan: Blood pressure is now much better. Continue to monitor blood pressure (4) CAD (coronary artery disease) Current Visit: Yes Status: Chronic Assessment and plan: No chest pain reported. Aspirin, Coreg, losartan Qualifiers: Coronary Disease-Associated Artery/Lesion type: [place] artery [place] vs. transplanted heart: [place] heart Associated angina: without angina Qualified Code(s): I25.10 - Atherosclerotic heart disease of [place] coronary artery without angina pectoris (5) COPD (chronic obstructive pulmonary disease) Current Visit: Yes Status: Chronic Assessment and plan: On bronchodilators as needed Qualifiers: COPD type: unspecified COPD Qualified Code(s): J44.9 - Chronic obstructive pulmonary disease, unspecified (6) Delirium Current Visit: Yes Status: Acute Assessment and plan: Patient remains agitated intermittently. On ziprasidone 20 mg twice daily. We will consider decreasing dosage to 10 mg twice daily as patient is more somnolent today (7) Discharge planning issues Current Visit: Yes Status: Acute Assessment and plan: Awaiting placement to skilled rehabilitation. Patient will need to be from restraints and sitter prior to discharge (8) Pneumonia Current Visit: Yes Status: Acute Assessment and plan: On cefepime. We will transition to oral antibiotics. Qualifiers: Pneumonia type: due to unspecified organism Laterality: bilateral Lung location: unspecified part of lung Qualified Code(s): J18.9 - Pneumonia, unspecified organism (9) Tobacco abuse Current Visit: Yes Status: Chronic Assessment and plan: on nicotine patch - Subjective Interval history: Patient is currently very somnolent. Discussed with nursing staff. Patient had woken up earlier and was eating and took his medications. Has been intermittently agitated. Still on restraints due to pulling at lines with risk for harm to self - Constitutional Vitals: Temp Pulse Resp BP Pulse Ox 97.3 F L 93 22 109/64 92 01/31/17 14:00 01/31/17 14:00 01/31/17 14:00 01/31/17 14:00 01/31/17 14:00 General appearance: Present: no acute distress. Absent: A&O X 0 Exam: Patient is currently very somnolent. Not answering questions although he does awake - Respiratory Respiratory exam: Present: CTAB. Absent: accessory muscle use, rales, rhonchi, wheezes - Cardiovascular Cardiovascular exam: Present: RRR, +S1, +S2. Absent: diastolic murmur, gallop, rubs, systolic murmur - Neurological Exam Additional comments: unable to do neurologic examination due due to patient's current status - Skin Skin exam: Present: dry, intact Internal Medicine: Result - Labs CBC & Chem 7: 01/29/17 04:00 01/29/17 04:00 - ABG Interpretation ABG results: ABG ABG pH 7.30 pH Units (7.32-7.45) L 01/28/17 16:20 ABG pCO2 66 mmHg (35-45) H 01/28/17 16:20 ABG pO2 66 mmHg (85-104) L 01/28/17 16:20 ABG O2 Saturation 90 % (95-98) L 01/28/17 16:20 Consult Discharge Plan - Plan Referrals: Chilo Lewis Jr, MD [Primary Care Provider] - 01/31/17 11:00 am - Attending Attestation This document has been at least partially created by [employer] recognition technology by Dr. Rosa. Errors in grammar, wording or other phrases may exist. If errors are found after the documentation is signed, they will be addressed individually in the addendum section of this document when appropriate.
[2017-01-31] MEDS: Cefdinir 300 MG CAPSULE PO SCH (17:22)
[2017-01-31] MEDS: Haloperidol Lactate 5 MG/ML VIAL IM PRN (22:01)
[2017-01-31] MEDS: Doxycycline 100 MG CAPSULE PO SCH (22:02)
[2017-02-01] MEDS: *HR* Heparin 5,000 UNIT/ML VIAL SQ SCH ×3 (05:30→20:05)
[2017-02-01] MEDS: Doxycycline 100 MG CAPSULE PO SCH ×4 (06:17→20:05)
[2017-02-01] MEDS: Sennosides/Docusate Sodium TABLET PO SCH ×3 (06:18→20:05)
[2017-02-01] MEDS ORDERED: 0.9 % Sodium Chloride 250 ML IVC PRN (08:14)
--- NOTE | 2017-02-01 08:14 | Nephrology Progress Note ---
Date of Encounter: 02/01/17 Time of Encounter: 08:12 - Assessment and Plan (1) ESRD on dialysis Current Visit: Yes Status: Chronic The patient will undergo his dialysis today. Clinically he appears as though he may be oversedated. He may need to have some of his medications decreased. (2) Benign hypertension with end-stage renal disease Current Visit: Yes Status: Chronic (3) Atrial fibrillation Current Visit: Yes Status: Chronic Qualifiers: Atrial fibrillation type: chronic Qualified Code(s): I48.2 - Chronic atrial fibrillation (4) CAD (coronary artery disease) Current Visit: Yes Status: Chronic Qualifiers: Coronary Disease-Associated Artery/Lesion type: [place] artery [place] vs. transplanted heart: [place] heart Associated angina: without angina Qualified Code(s): I25.10 - Atherosclerotic heart disease of [place] coronary artery without angina pectoris Subjective Principal diagnosis: esrd Interval history: The patient is somnolent. He is able to be awakened. He is oriented to place and person. He denies any complaints. He then drifts off back to sleep. He will have his usual dialysis today. Objective - Vital Signs Vital signs: Vital Signs Temp Pulse Resp BP Pulse Ox 02/01/17 06:28 97 F L 100 18 157/93 85 02/01/17 03:11 97.5 F L 100 15 108/68 98 01/31/17 22:59 97.4 F L 100 14 113/70 95 01/31/17 21:44 97.4 F L 91 19 124/82 91 01/31/17 19:23 97.4 F L 91 19 124/82 94 01/31/17 16:15 97.0 F L 95 16 120/73 99 01/31/17 16:00 97.0 F L 95 16 120/73 99 01/31/17 14:00 97.3 F L 61 18 163/78 98 01/31/17 12:14 97.3 F L 93 22 109/64 92 01/31/17 12:00 97.3 F L 93 22 109/64 92 01/31/17 10:45 16 93 01/31/17 10:00 97.3 F L 93 22 109/64 92 Intake and Output 01/31/17 02/01/17 02/01/17 23:59 07:59 15:59 Other: Weight 110 kg Patient Weight 02/01/17 23:59 Weight 110 kg - General Appearance Exam: Patient is somnolent. Vital signs are stable. Lungs diminished breath sounds. Heart irregular rate and rhythm. Abdomen is obese. Nontender. No guarding. There is some lower extremity swelling. There is a functioning AV fistula in the right arm. - Lab 01/29/17 04:00 01/29/17 04:00 Most recent lab results ABG pH 7.30 pH Units (7.32-7.45) L 01/28/17 16:20 ABG pCO2 66 mmHg (35-45) H 01/28/17 16:20 ABG pO2 66 mmHg (85-104) L 01/28/17 16:20 ABG HCO3 32.5 mEQ/L (21-27) H 01/28/17 16:20 ABG O2 Saturation 90 % (95-98) L 01/28/17 16:20 Calcium 8.3 mg/dL (8.6-10.8) L 01/29/17 04:00 Phosphorus 4.2 mg/dL (2.3-4.7) 01/28/17 04:20 Consult Discharge Plan - Plan Referrals: Chilo Lewis Jr, MD [Primary Care Provider] - 01/31/17 11:00 am
[2017-02-01] MEDS: amLODIPine 5 MG TABLET PO SCH (09:11)
[2017-02-01] MEDS: Aspirin 81 MG TAB.CHEW PO SCH (09:16)
[2017-02-01] MEDS: Nicotine 14 MG PATCH.TD24 TD SCH (09:16)
[2017-02-01] MEDS: Ziprasidone 20 MG CAPSULE PO SCH (09:16)
[2017-02-01 10:44] LABS: Basophils % 0.2 %; Eosinophils # 0.1 K/mcL (0.0-0.6); Eosinophils % 1.6 %; Hematocrit 31.7 % (37.5-50.1); Hemoglobin 10.1 g/dL (12.9-16.9); Immature Granulocytes % 0.4 % (0-4); Lymphocytes # 0.7 K/mcL (0.6-4.6); Lymphocytes % 14.7 %; Mean Corpuscular HGB Conc 31.9 g/dL (31.6-35.5); Mean Corpuscular Hemoglobin 27.1 pg (28.0-33.3); Mean Platelet Volume 10.1 fL (9.4-12.4); Monocytes # 0.4 K/mcL (0.0-1.3); Monocytes % 7.4 %; Neutrophils # 3.8 K/mcL (1.6-8.9); Platelet Count 110 K/mcL (140-400); Red Blood Count 3.73 M/mcL (4.19-5.50); Red Cell Distribution Width 17.5 % (11.5-14.5); Segmented Neutrophils % 75.7 %
[2017-02-01 10:56] LABS: Calcium 8.2 mg/dL (8.6-10.8); Potassium 3.9 mEq/L (3.5-4.5)
[2017-02-01] MEDS: Budesonide/Formoterol 160/4.5 MDI IH SCH ×2 (11:00→20:27)
[2017-02-01] MEDS: Cefdinir 300 MG CAPSULE PO SCH (17:00)
--- NOTE | 2017-02-01 17:07 | Internal Med Progress Note ---
Date of Encounter: 02/01/17 Time of Encounter: 11:40 - Assessment and plan (1) Acute and chronic respiratory failure with hypoxia Current Visit: Yes Status: Acute Assessment and plan: Stable. On O2 supplementation via nasal cannula. Due to pneumonia and COPD. (2) Atrial fibrillation Current Visit: Yes Status: Chronic Assessment and plan: Rate controlled. Continue carvedilol. Not on anticoagulation due to chikis hemoptysis in the past. Qualifiers: Atrial fibrillation type: chronic Qualified Code(s): I48.2 - Chronic atrial fibrillation (3) Benign hypertension with end-stage renal disease Current Visit: Yes Status: Chronic Assessment and plan: Blood pressure is now better Controlled. Continue current antihypertensive (4) CAD (coronary artery disease) Current Visit: Yes Status: Chronic Assessment and plan: No chest pain. Continue aspirin, beta parminder and losartan Qualifiers: Coronary Disease-Associated Artery/Lesion type: [place] artery [place] vs. transplanted heart: [place] heart Associated angina: without angina Qualified Code(s): I25.10 - Atherosclerotic heart disease of [place] coronary artery without angina pectoris (5) COPD (chronic obstructive pulmonary disease) Current Visit: Yes Status: Chronic Assessment and plan: Continue bronchodilators as needed and O2 supplementation Qualifiers: COPD type: unspecified COPD Qualified Code(s): J44.9 - Chronic obstructive pulmonary disease, unspecified (6) Delirium Current Visit: Yes Status: Acute Assessment and plan: Decrease Geodon dosage to 20 mg once daily. Patient is more awake and alert now. Minimal use of restraints. (7) Discharge planning issues Current Visit: Yes Status: Acute Assessment and plan: composition worker is working on placement. Complicated due to use of restraints. We will attempt to decrease restraints use tonight as patient is more cooperative today. (8) Pneumonia Current Visit: Yes Status: Acute Assessment and plan: Complete treatment with Omnicef and doxycycline for total of 14 days Qualifiers: Pneumonia type: due to unspecified organism Laterality: bilateral Lung location: unspecified part of lung Qualified Code(s): J18.9 - Pneumonia, unspecified organism (9) Tobacco abuse Current Visit: Yes Status: Chronic - Subjective Interval history: patient seen well receiving hemodialysis. More awake and alert today. Remains disoriented although he knows that he is at [facility] in [place]. Denies any pain or shortness of breath - Constitutional Vitals: Temp Pulse Resp BP Pulse Ox 97.3 F L 101 18 136/85 96 02/01/17 15:37 02/01/17 15:37 02/01/17 15:37 02/01/17 15:37 02/01/17 15:37 General appearance: Present: cooperative, A&O X 1, no acute distress, answers questions appropriately (Answers some questions appropriately) - Neck Neck exam general surgery: Present: supple, trachea midline. Absent: lymphadenopathy - Respiratory Respiratory exam: Present: CTAB. Absent: accessory muscle use, rales, rhonchi, wheezes - Cardiovascular Cardiovascular exam: Present: RRR, +S1, +S2. Absent: diastolic murmur, gallop, rubs, systolic murmur - GI/Abdominal GI/Abdominal exam: Present: normal bowel sounds, soft, no peritoneal signs. Absent: distended, tenderness - Extremities Exam Extremities exam: Present: pedal edema - Neurological Exam Neurological exam: Present: alert, no focal deficits. Absent: facial droop, speech deficit - Skin Skin exam: Present: dry, intact Internal Medicine: Result - Labs CBC & Chem 7: 02/01/17 10:31 02/01/17 10:31 Labs: Short CBC 02/01/17 Range/Units 10:31 WBC 5.0 (4.3-11.1) K/mcL Hgb 10.1 L (12.9-16.9) g/dL Hct 31.7 L (37.5-50.1) % Plt Count 110 L (140-400) K/mcL Neutrophils # 3.8 (1.6-8.9) K/mcL BMP 02/01/17 10:31 Sodium 138 Potassium 3.9 Chloride 99 Carbon Dioxide 29 BUN 36 H Creatinine 3.91 H Glucose 86 Calcium 8.2 L - ABG Interpretation ABG results: ABG ABG pH 7.30 pH Units (7.32-7.45) L 01/28/17 16:20 ABG pCO2 66 mmHg (35-45) H 01/28/17 16:20 ABG pO2 66 mmHg (85-104) L 01/28/17 16:20 ABG O2 Saturation 90 % (95-98) L 01/28/17 16:20 Consult Discharge Plan - Plan Referrals: Chilo Lewis Jr, MD [Primary Care Provider] - (follow up with [facility] pcp ) - Attending Attestation This document has been at least partially created by [employer] recognition technology by Dr. Rosa. Errors in grammar, wording or other phrases may exist. If errors are found after the documentation is signed, they will be addressed individually in the addendum section of this document when appropriate.
[2017-02-01] MEDS: Haloperidol Lactate 5 MG/ML VIAL IM PRN (20:06)
[2017-02-02] MEDS: *HR* Heparin 5,000 UNIT/ML VIAL SQ SCH ×3 (05:18→22:38)
--- NOTE | 2017-02-02 07:59 | Nephrology Progress Note ---
Date of Encounter: 02/02/17 Time of Encounter: 07:57 - Assessment and Plan (1) ESRD on dialysis Current Visit: Yes Status: Chronic The patient will continue to have dialysis every Monday. (2) Benign hypertension with end-stage renal disease Current Visit: Yes Status: Chronic (3) Atrial fibrillation Current Visit: Yes Status: Chronic Qualifiers: Atrial fibrillation type: chronic Qualified Code(s): I48.2 - Chronic atrial fibrillation (4) CAD (coronary artery disease) Current Visit: Yes Status: Chronic Qualifiers: Coronary Disease-Associated Artery/Lesion type: [place] artery [place] vs. transplanted heart: [place] heart Associated angina: without angina Qualified Code(s): I25.10 - Atherosclerotic heart disease of [place] coronary artery without angina pectoris Subjective Principal diagnosis: esrd Interval history: The patient remains somnolent. He is able to be awakened. His interests back off to sleep. Vital signs are stable. He received dialysis yesterday. Objective - Vital Signs Vital signs: Vital Signs Temp Pulse Resp BP Pulse Ox 02/02/17 02:53 97.9 F 101 19 134/66 97 02/01/17 22:55 97.6 F 100 18 99/65 95 02/01/17 20:34 97.7 F 102 18 122/85 96 02/01/17 20:27 17 95 02/01/17 15:37 97.3 F L 101 18 136/85 96 02/01/17 13:19 98.1 F 20 115/71 02/01/17 12:55 108/70 02/01/17 12:40 118/69 02/01/17 12:25 135/75 02/01/17 12:10 116/80 02/01/17 11:55 103/69 02/01/17 11:40 100/69 02/01/17 11:25 124/80 02/01/17 11:10 106/60 02/01/17 10:55 107/66 02/01/17 10:40 119/63 02/01/17 10:25 99/69 02/01/17 10:10 106/60 02/01/17 09:55 126/83 02/01/17 09:40 129/79 02/01/17 09:25 97.7 F 22 128/84 Intake and Output 02/01/17 02/01/1702/02/17 15:59 23:59 07:59 Intake Total 600 / 600 250 / 250 300 / 300 Output Total 3600 / 3600 Balance -3000 / -3000 250 / 250 300 / 300 Intake: Oral 0 / 0 250 / 250 300 / 300 Intake, Rinseback and 600 / 600 Flushes Output: Urine 0 / 0 Total Dialysis Output 3600 / 3600 Other: Meal PUDDING AND SODA AND CRACKERS CHEDDAR AND CARY CRACKERS. DIET SODA Weight 107.5 kg Hemodialysis Net Fluid 3000 Removed (mL) Patient Weight 02/02/17 23:59 Weight 107.5 kg - General Appearance Exam: Patient is lethargic. Lungsbreath sounds. Heart regular rate and rhythm. Abdomen is obese but nontender. There is no lower extremity swelling. There is functioning AV fistula in the right upper extremity. - Lab 02/01/17 10:31 02/01/17 10:31 Most recent lab results ABG pH 7.30 pH Units (7.32-7.45) L 01/28/17 16:20 ABG pCO2 66 mmHg (35-45) H 01/28/17 16:20 ABG pO2 66 mmHg (85-104) L 01/28/17 16:20 ABG HCO3 32.5 mEQ/L (21-27) H 01/28/17 16:20 ABG O2 Saturation 90 % (95-98) L 01/28/17 16:20 Calcium 8.2 mg/dL (8.6-10.8) L 02/01/17 10:31 Phosphorus 4.2 mg/dL (2.3-4.7) 01/28/17 04:20 Consult Discharge Plan - Plan Referrals: Chilo Lewis Jr, MD [Primary Care Provider] - (Patient to follow up with PCP at [facility] )
[2017-02-02] MEDS: Budesonide/Formoterol 160/4.5 MDI IH SCH ×2 (08:30→20:30)
[2017-02-02] MEDS: Aspirin 81 MG TAB.CHEW PO SCH (08:55)
[2017-02-02] MEDS: amLODIPine 5 MG TABLET PO SCH (08:55)
[2017-02-02] MEDS: Ziprasidone 20 MG CAPSULE PO SCH (08:55)
[2017-02-02] MEDS: Sennosides/Docusate Sodium TABLET PO SCH ×2 (08:55→22:37)
[2017-02-02] MEDS: Doxycycline 100 MG CAPSULE PO SCH ×2 (08:56→22:38)
[2017-02-02] MEDS: Nicotine 14 MG PATCH.TD24 TD SCH (08:56)
[2017-02-02] MEDS: Cefdinir 300 MG CAPSULE PO SCH (16:29)
--- NOTE | 2017-02-02 16:47 | Internal Med Progress Note ---
Date of Encounter: 02/02/17 Time of Encounter: 09:50 - Assessment and plan (1) Acute and chronic respiratory failure with hypoxia Current Visit: Yes Status: Acute Assessment and plan: Improving. Patient is O2 supplement patient's hypoxia remained stable and is well supplemented with 4 L of O2. This is due to pneumonia and COPD (2) Pneumonia Current Visit: Yes Status: Acute Assessment and plan: Continue Omnicef and doxycycline. Qualifiers: Pneumonia type: due to unspecified organism Laterality: bilateral Lung location: unspecified part of lung Qualified Code(s): J18.9 - Pneumonia, unspecified organism (3) Atrial fibrillation Current Visit: Yes Status: Chronic Assessment and plan: A. fib is controlled. Patient not on anticoagulation due to prior history of serious hemoptysis Qualifiers: Atrial fibrillation type: chronic Qualified Code(s): I48.2 - Chronic atrial fibrillation (4) Benign hypertension with end-stage renal disease Current Visit: Yes Status: Chronic Assessment and plan: Fairly controlled but patient does have intermittent elevations. No changes at this time (5) CAD (coronary artery disease) Current Visit: Yes Status: Chronic Assessment and plan: Continue aspirin and beta parminder and a losartan Qualifiers: Coronary Disease-Associated Artery/Lesion type: [place] artery [place] vs. transplanted heart: [place] heart Associated angina: without angina Qualified Code(s): I25.10 - Atherosclerotic heart disease of [place] coronary artery without angina pectoris (6) COPD (chronic obstructive pulmonary disease) Current Visit: Yes Status: Chronic Assessment and plan: Continue bronchodilators as needed Qualifiers: COPD type: unspecified COPD Qualified Code(s): J44.9 - Chronic obstructive pulmonary disease, unspecified (7) Delirium Current Visit: Yes Status: Acute Assessment and plan: Improving. Patient is able to remain unrestrained without any agitation or risk for harm to self. (8) Discharge planning issues Current Visit: Yes Status: Acute Assessment and plan: Patient required to be restrained free for at least 12-24 hours. pest control worker working on placement (9) Tobacco abuse Current Visit: Yes Status: Chronic - Subjective Interval history: Patient is sitting up in bed. Doing well today. Denies any new complaints at this time. No difficulty breathing. No chest pain. Has been off restraints since last night - Constitutional Vitals: Temp Pulse Resp BP Pulse Ox 98.2 F 84 16 146/95 97 02/02/17 11:29 02/02/17 11:29 02/02/17 11:29 02/02/17 11:29 02/02/17 08:30 General appearance: Present: cooperative, A&O X 1, no acute distress, answers questions appropriately - Neck Neck exam general surgery: Present: supple, trachea midline. Absent: lymphadenopathy - Respiratory Respiratory exam: Present: CTAB. Absent: accessory muscle use, rales, rhonchi, wheezes - Cardiovascular Cardiovascular exam: Present: RRR, +S1, +S2. Absent: diastolic murmur, gallop, rubs, systolic murmur - Extremities Exam Extremities exam: Present: pedal edema, warm, radial pulses palpable and symetrical. Absent: calf tenderness, cyanotic Internal Medicine: Result - Labs CBC & Chem 7: 02/01/17 10:31 02/01/17 10:31 - ABG Interpretation ABG results: ABG ABG pH 7.30 pH Units (7.32-7.45) L 01/28/17 16:20 ABG pCO2 66 mmHg (35-45) H 01/28/17 16:20 ABG pO2 66 mmHg (85-104) L 01/28/17 16:20 ABG O2 Saturation 90 % (95-98) L 01/28/17 16:20 Consult Discharge Plan - Plan Referrals: Chilo Lewis Jr, MD [Primary Care Provider] - (Patient to follow up with PCP at [facility] ) - Attending Attestation This document has been at least partially created by [email or web address] recognition technology by Dr. Rosa. Errors in grammar, wording or other phrases may exist. If errors are found after the documentation is signed, they will be addressed individually in the addendum section of this document when appropriate.
[2017-02-03 04:23] LABS: Basophils % 0.4 %; Eosinophils % 2.1 %; Mean Corpuscular HGB Conc 31.2 g/dL (31.6-35.5); Mean Corpuscular Hemoglobin 27.1 pg (28.0-33.3); Red Cell Distribution Width 17.4 % (11.5-14.5)
[2017-02-03 04:26] LABS: Eosinophils # 0.1 K/mcL (0.0-0.6); Hematocrit 31.1 % (37.5-50.1); Hemoglobin 9.7 g/dL (12.9-16.9); Immature Granulocytes % 0.5 % (0-4); Immature Platelets 6.2 % (1.1-6.1); Lymphocytes # 1.5 K/mcL (0.6-4.6); Lymphocytes % 25.8 %; Mean Corpuscular Volume 86.9 fL (83.0-100.0); Monocytes # 0.7 K/mcL (0.0-1.3); Monocytes % 11.6 %; Neutrophils # 3.4 K/mcL (1.6-8.9); Red Blood Count 3.58 M/mcL (4.19-5.50); Segmented Neutrophils % 59.6 %
[2017-02-03 04:28] LABS: Albumin/Globulin Ratio 0.8 (1.1-2.2); Bilirubin,Total 0.7 mg/dL (0.2-1.2); Calcium 8.1 mg/dL (8.6-10.8); Potassium 4.3 mEq/L (3.5-4.5)
[2017-02-03 04:42] LABS: Platelet Count 99 K/mcL (140-400)
[2017-02-03] MEDS: *HR* Heparin 5,000 UNIT/ML VIAL SQ SCH (05:55)
[2017-02-03] MEDS: Doxycycline 100 MG CAPSULE PO SCH (07:45)
[2017-02-03] MEDS: amLODIPine 5 MG TABLET PO SCH (07:46)
[2017-02-03] MEDS: Ziprasidone 20 MG CAPSULE PO SCH (07:46)
[2017-02-03] MEDS: Aspirin 81 MG TAB.CHEW PO SCH (07:46)
[2017-02-03] MEDS: Nicotine 14 MG PATCH.TD24 TD SCH (07:46)
[2017-02-03] MEDS: Sennosides/Docusate Sodium TABLET PO SCH (07:46)
[2017-02-03] MEDS ORDERED: 0.9 % Sodium Chloride 250 ML IVC PRN (09:16)
--- NOTE | 2017-02-03 09:16 | Nephrology Progress Note ---
Date of Encounter: 02/03/17 Time of Encounter: 09:15 - Assessment and Plan (1) ESRD on dialysis Current Visit: Yes Status: Chronic The patient is stable from a renal perspective. He will undergo dialysis today. Orders have been submitted. (2) Benign hypertension with end-stage renal disease Current Visit: Yes Status: Chronic (3) Atrial fibrillation Current Visit: Yes Status: Chronic Qualifiers: Atrial fibrillation type: chronic Qualified Code(s): I48.2 - Chronic atrial fibrillation (4) CAD (coronary artery disease) Current Visit: Yes Status: Chronic Qualifiers: Coronary Disease-Associated Artery/Lesion type: [place] artery [place] vs. transplanted heart: [place] heart Associated angina: without angina Qualified Code(s): I25.10 - Atherosclerotic heart disease of [place] coronary artery without angina pectoris Subjective Principal diagnosis: esrd Interval history: Patient was sleeping. He awakened fairly easily. He seems to be more alert today in general compared to yesterday. He scheduled her usual dialysis today. Objective - Vital Signs Vital signs: Vital Signs Temp Pulse Resp BP Pulse Ox 02/03/17 07:40 98.1 F 94 18 180/91 97 02/03/17 04:57 97.5 F L 87 17 130/58 100 02/02/17 23:09 97.3 F L 94 19 143/85 95 02/02/17 20:52 97.8 F 76 18 114/55 91 02/02/17 20:30 16 94 02/02/17 11:29 98.2 F 84 16 146/95 Intake and Output 02/02/17 02/03/17 02/03/17 23:59 07:59 15:59 Intake Total 790 / 790 150 / 150 120 / 120 Balance 790 / 790 150 / 150 120 / 120 Intake: Oral 790 / 790 150 / 150 120 / 120 Other: Meal PUDDING AND APPLESAUCE 6 PACKS OF CRACKERS Breakfast Percent of Meal Consumed 100% 100% Weight 108.2 kg Patient Weight 02/03/17 23:59 Weight 108.2 kg - General Appearance Exam: Patient is in no acute distress. Vital signs are stable. Lungs sounds otherwise clear. Regular rate and rhythm. Abdomen is obese. No tenderness nor guarding. There is minimal lower extremity swelling. There is a functioning AV fistula in the right upper extremity. - Lab 02/03/17 04:00 02/03/17 04:00 Most recent lab results ABG pH 7.30 pH Units (7.32-7.45) L 01/28/17 16:20 ABG pCO2 66 mmHg (35-45) H 01/28/17 16:20 ABG pO2 66 mmHg (85-104) L 01/28/17 16:20 ABG HCO3 32.5 mEQ/L (21-27) H 01/28/17 16:20 ABG O2 Saturation 90 % (95-98) L 01/28/17 16:20 Calcium 8.1 mg/dL (8.6-10.8) L 02/03/17 04:00 Phosphorus 4.2 mg/dL (2.3-4.7) 01/28/17 04:20 Consult Discharge Plan - Plan Referrals: Chilo Lewis Jr, MD [Primary Care Provider] - (Patient to follow up with PCP at [facility] )
[2017-02-03] MEDS: Budesonide/Formoterol 160/4.5 MDI IH SCH (11:14)
--- NOTE | 2017-02-03 11:49 | Discharge Summary ---
Date of Encounter: 02/03/17 Time of Encounter: 09:20 - Discharge Diagnosis (1) Acute and chronic respiratory failure with hypoxia Priority: Primary Status: Acute (2) Pneumonia Priority: Secondary Status: Acute Qualifiers: Pneumonia type: due to unspecified organism Laterality: bilateral Lung location: unspecified part of lung Qualified Code(s): J18.9 - Pneumonia, unspecified organism (3) Atrial fibrillation Priority: Secondary Status: Chronic Qualifiers: Atrial fibrillation type: chronic Qualified Code(s): I48.2 - Chronic atrial fibrillation (4) Benign hypertension with end-stage renal disease Priority: Secondary Status: Chronic (5) CAD (coronary artery disease) Priority: Secondary Status: Chronic Qualifiers: Coronary Disease-Associated Artery/Lesion type: [place] artery [place] vs. transplanted heart: [place] heart Associated angina: without angina Qualified Code(s): I25.10 - Atherosclerotic heart disease of [place] coronary artery without angina pectoris (6) COPD (chronic obstructive pulmonary disease) Priority: Secondary Status: Chronic Qualifiers: COPD type: unspecified COPD Qualified Code(s): J44.9 - Chronic obstructive pulmonary disease, unspecified (7) Delirium Priority: Secondary Status: Acute (8) Discharge planning issues Priority: Secondary Status: Acute (9) Tobacco abuse Priority: Secondary Status: Chronic - Discharge Medications Prescriptions: Cefdinir [Omnicef] 300 mg PO DAILY@1800 #10 capsule Doxycycline 100 mg PO BID #20 capsule Oxycodone HCl 15 mg PO Q6H PRN #20 tablet PRN Reason: pain Ziprasidone [Geodon] 20 mg PO DAILY #30 capsule Home Medications: Carvedilol [Coreg] 25 mg PO BID 09/08/15 [History] cloNIDine HCl [CloNIDine HCl] 0.1 mg PO QAM 09/08/15 [History] Albuterol Neb [AccuNeb] 1.25 mg IH Q4H PRN 09/21/16 [History] Budesonide/Formoterol 160/4.5 [Symbicort 160/4.5] 2 puff IH BIDR 09/22/16 [ History] Cinacalcet [Sensipar] 30 mg PO DAILY 09/22/16 [History] Omeprazole [PriLOSEC] 20 mg PO DAILY 09/22/16 [History] amLODIPine [Norvasc] 5 mg PO DAILY 09/22/16 [History] Aspirin 81 mg PO DAILY #0 tab.chew 09/28/16 [Rx] Losartan [Cozaar] 50 mg PO BID 12/14/16 [History] Cefdinir [Omnicef] 300 mg PO DAILY@1800 #10 capsule 02/03/17 [Rx] Doxycycline 100 mg PO BID #20 capsule 02/03/17 [Rx] Oxycodone HCl 15 mg PO Q6H PRN #20 tablet 02/03/17 [Rx] Ziprasidone [Geodon] 20 mg PO DAILY #30 capsule 02/03/17 [Rx] Allergies/Adverse Reactions: Allergies rofecoxib [From Vioxx] Allergy (Verified 01/24/17 09:30) Swelling of Lip/Tongue/Throat Date of admission: 01/26/17 10:59 Primary care physician: Chilo Lewis Jr, MD Consults: 01/27/17 08:00 Consult to Dialysis [CONS] ONCE 01/28/17 08:14 Consult to Psychiatry [CONS] Stat Consulting Provider: [facility] [place] Reason for Consult: Recurrent agitation, no psych history in the past, no medical reason noted. Patient has been requring haldol to accept medical care. Pls evaluate and reccommend management. Thank you. Call Completed: Yes 01/30/17 08:30 Consult to Dialysis [CONS] ONCE 02/01/17 08:15 Consult to Dialysis [CONS] ONCE 02/03/17 09:30 Consult to Dialysis [CONS] ONCE Discharging clinician: Fiona Rosa Anticipated date of discharge: 02/03/17 - Patient Status Disposition: Transfer SNF Condition: Good Functional capacity at discharge: uses cane/walker Overall status at discharge: patient is progressing back to baseline - Discharge Instructions Instructions: Chronic Kidney Disease (GEN), Hemodialysis (GEN), Pneumonia (DC) , Chronic Hypertension (DC), Atrial Fibrillation (DC) Follow Up With: Chilo Lewis Jr, MD [Primary Care Provider] - (Patient to follow up with PCP at [facility] ) - Diet and Activity Activity: as per physical therapy Diet: low fat, low cholesterol, low salt diet Hospital course: Mr. Hernandez is a 71 year old male patient with a history of end-stage renal disease on hemodialysis, hyperlipidemia, COPD, hypertension, [place] was admitted to the hospital after presenting with shortness of breath which had been progressively getting worse along with chest pain, and sputum production. He had missed dialysis session prior to his presentation. He had severely elevated blood pressure on presentation and was also hypoxic. He was started on treatment for these conditions and treated with O2 supplementation. He also underwent dialysis per nephrology recommendations. Over the course of his stay , he was found to have worsening respiratory distress and respiratory failure and repeat chest x-ray showed presence of infiltrates. As such was started on broad-spectrum antibiotics. Blood cultures were sent. So far cultures have been negative. The patient has clinically improved. His antibiotic regimen has not been D escalated and is on oral antibiotics. The patient also developed delirium and agitation during his stay here. Patient required antipsychotic medications to calm him down. Psychiatric was consulted. They believe due to the patient's delirium was due to metabolic causes and recommended starting the patient on Geodon. After this medication was started, patient's mental status has improved. He is now participating in his care and is no longer agitated and combative. He was evaluated by physical therapy and recommended placement to skilled rehabilitation. He will be discharged today to skilled rehabilitation and will receive physical therapy and occupational therapy there. He will continue taking Geodon daily. He will complete a 14 day treatment course with Antibiotics for pneumonia. - Time Spent with Patient Total time spent providing and/or coordinating discharge services: Greater than 30 minutes (45 min) - Constitutional Vitals: Temp Pulse Resp BP Pulse Ox 97.9 F 94 20 116/73 97 02/03/17 09:50 02/03/17 07:40 02/03/17 09:50 02/03/17 11:35 02/03/17 07:40 General appearance: Present: cooperative, A&O X 1, no acute distress, answers questions appropriately - Respiratory Respiratory exam: Present: CTAB. Absent: accessory muscle use, rales, rhonchi, wheezes - Cardiovascular Cardiovascular exam: Present: RRR, +S1, +S2. Absent: diastolic murmur, gallop, rubs, systolic murmur - GI/Abdominal GI/Abdominal exam: Present: normal bowel sounds, soft, no peritoneal signs. Absent: distended, tenderness - Extremities Exam Extremities exam: Present: pedal edema, warm, radial pulses palpable and symetrical. Absent: calf tenderness, cyanotic - Neurological Exam Neurological exam: Present: oriented X3, no focal deficits. Absent: facial droop, speech deficit - Skin Skin exam: Present: dry, intact - Attending Attestation This document has been at least partially created by [employer] recognition technology by Dr. Rosa. Errors in grammar, wording or other phrases may exist. If errors are found after the documentation is signed, they will be addressed individually in the addendum section of this document when appropriate.
--- NOTE | 2017-02-03 11:56 | Physician Discharge Referral ---
ExtendedCare Referral Info Provider in Charge after Transfer: PCP Institutional Level of Care: Skilled - Diagnosis (1) Acute and chronic respiratory failure with hypoxia Priority: Primary Status: Acute (2) Pneumonia Priority: Secondary Status: Acute (3) Atrial fibrillation Priority: Secondary Status: Chronic (4) Benign hypertension with end-stage renal disease Priority: Secondary Status: Chronic (5) CAD (coronary artery disease) Priority: Secondary Status: Chronic (6) COPD (chronic obstructive pulmonary disease) Priority: Secondary Status: Chronic (7) Delirium Priority: Secondary Status: Acute (8) Discharge planning issues Priority: Secondary Status: Acute (9) Tobacco abuse Priority: Secondary Status: Chronic Prognosis: Fair Aware of Diagnosis: Patient, Family Aware of Prognosis: Patient, Family - Transfer Medications Prescriptions: Cefdinir [Omnicef] 300 mg PO DAILY@1800 #10 capsule Doxycycline 100 mg PO BID #20 capsule Oxycodone HCl 15 mg PO Q6H PRN #20 tablet PRN Reason: pain Ziprasidone [Geodon] 20 mg PO DAILY #30 capsule Home Medications: Carvedilol [Coreg] 25 mg PO BID 09/08/15 [History] cloNIDine HCl [CloNIDine HCl] 0.1 mg PO QAM 09/08/15 [History] Albuterol Neb [AccuNeb] 1.25 mg IH Q4H PRN 09/21/16 [History] Budesonide/Formoterol 160/4.5 [Symbicort 160/4.5] 2 puff IH BIDR 09/22/16 [ History] Cinacalcet [Sensipar] 30 mg PO DAILY 09/22/16 [History] Omeprazole [PriLOSEC] 20 mg PO DAILY 09/22/16 [History] amLODIPine [Norvasc] 5 mg PO DAILY 09/22/16 [History] Aspirin 81 mg PO DAILY #0 tab.chew 09/28/16 [Rx] Losartan [Cozaar] 50 mg PO BID 12/14/16 [History] Cefdinir [Omnicef] 300 mg PO DAILY@1800 #10 capsule 02/03/17 [Rx] Doxycycline 100 mg PO BID #20 capsule 02/03/17 [Rx] Oxycodone HCl 15 mg PO Q6H PRN #20 tablet 02/03/17 [Rx] Ziprasidone [Geodon] 20 mg PO DAILY #30 capsule 02/03/17 [Rx] Allergies/Adverse Reactions: Allergies rofecoxib [From Vioxx] Allergy (Verified 01/24/17 09:30) Swelling of Lip/Tongue/Throat - Respiratory Orders Oxygen / L per min (keep sats >90%) Smoking Cessation: Smoking cessation has been advised. For more information, call the [place] Tobacco Quit Line at 7-121-ZSRF-NOW. - Ancillary Orders May use pressure relief devices daily prn, May consult with Dentist, Visitor Service Assistant, Metal Storage Worker PRN - Advance Directives Code Status: Full Code - Mobility Orders Ambulate (per PT) - Rehabiliation Orders Rehab Potential: Fair Rehab Orders: Evaluation for Physical Therapy, Evaluation for Occupational Therapy - Diet Orders Renal, Cardiac CERTIFICATION: I certify that the transfer of the above named patient to an Extended Care Facility is necessary for the continuing treatment of the diagnosis listed. The above information is true and accurate reflection of patient's current condition. Confidential - Redisclosure prohibited without a patient's written consent.
[2017-02-03] MEDS ORDERED: 0.9 % Sodium Chloride 2,000 ML ONE (12:52)
[2017-02-03 14:14] VITALS: BP 128/65
== END 2017-02-03 14:39 | DRG 189 ==
LOC: EMEROO 21:56 → 2ANU 21:56 → SUATTDRO 01-24 00:11 → 2ANU 01-24 00:20 → SUATTDRO 01-26 10:59 → 2ANU 01-26 20:46
PROVIDERS: ADMIT Internal Medicine; ATTEND Internal Medicine

== ENCOUNTER 2017-02-21 06:49 | Inpatient (IN) ==
[2017-02-21] MEDS ORDERED: Nitroglycerin 25 MG/250 ML INFUS..BTL IVC SCH (07:15)
--- NOTE | 2017-02-21 07:28 | Emergency Department Note ---
Disposition Clinical Impression: End stage kidney disease, Hypoxia Congestive heart failure Qualifiers: Congestive heart failure type: unspecified congestive heart failure type Congestive heart failure chronicity: chronic Qualified Code(s): I50.9 - Heart failure, unspecified Hypertension Qualifiers: Hypertension type: unspecified secondary hypertension Qualified Code(s): I15.9 - Secondary hypertension, unspecified; I15 - Secondary hypertension Anemia Qualifiers: Anemia type: unspecified type Qualified Code(s): D64.9 - Anemia, unspecified Disposition: Admitted As Inpatient Condition: Fair Referrals: Unassigned,Provider [Non-Partnered Physician] - Forms: ED Satisfaction Letter Time of Disposition: 07:52 SOB HPI - General Chief Complaint: ED Shortness of Breath/Dyspnea Stated Complaint: shortness of breath Time Seen by Provider: 02/21/17 07:26 Source: patient, EMS Mode of arrival: EMS Limitations: no limitations Nursing Notes Reviewed: Yes Vital Signs Reviewed: Yes - History of Present Illness Patient complains of increasing dyspnea over the past day. He denies cough, chest pain or new peripheral edema. He has been compliant with his dialysis. She presents from home via EMS Pt Subjective Complaint: shortness of breath Onset (ago): hour(s) Severity: severe Consistency/Duration: constant Improves with: nothing Worsens with: nothing Known history of: congestive heart failure Associated symptoms: Reports: denies other symptoms Cough present: No - Related Data Home oxygen amount: none Home Medications Medication Instructions Recorded Confirmed Carvedilol [Coreg] 25 mg PO BID 09/08/15 01/24/17 cloNIDine HCl [CloNIDine HCl] 0.1 mg PO QAM 09/08/15 01/24/17 Albuterol Neb [AccuNeb] 1.25 mg IH Q4H PRN 09/21/16 01/24/17 Budesonide/Formoterol 160/4.5 2 puff IH BIDR 09/22/16 01/24/17 [Symbicort 160/4.5] Cinacalcet [Sensipar] 30 mg PO DAILY 09/22/16 01/24/17 Omeprazole [PriLOSEC] 20 mg PO DAILY 09/22/16 01/24/17 amLODIPine [Norvasc] 5 mg PO DAILY 09/22/16 01/24/17 Losartan [Cozaar] 50 mg PO BID 12/14/16 01/24/17 Previous Rx's Medication Instructions Recorded Aspirin 81 mg PO DAILY #0 tab.chew 09/28/16 Cefdinir [Omnicef] 300 mg PO DAILY@1800 #10 capsule 02/03/17 Doxycycline 100 mg PO BID #20 capsule 02/03/17 Oxycodone HCl 15 mg PO Q6H PRN #20 tablet 02/03/17 Ziprasidone [Geodon] 20 mg PO DAILY #30 capsule 02/03/17 Allergies Allergy/AdvReac Type Severity Reaction Status Date / Time rofecoxib [From Vioxx] Allergy Swelling Verified 02/21/17 06:52 of Lip/Tongue/Throat All systems ED: reviewed and negative except as stated. Constitutional: Reports: as per HPI Eyes: Reports: as per HPI ENT ED: Reports: as per HPI Cardiovascular: Reports: as per HPI Respiratory: Reports: dyspnea Gastrointestinal: Reports: as per HPI Genitourinary: Reports: as per HPI Musculoskeletal: Reports: as per HPI Integumentary: Reports: as per HPI Neurological: Reports: as per HPI Psychiatric: Reports: as per HPI Endocrine: Reports: as per HPI Hematological/Lymphatic: Reports: as per HPI Allergic/Immunologic: Reports: as per HPI Past Medical History - Past Medical History Medical history: Reports: aortic aneurysm, diabetes, dialysis, hyperlipidemia, hypertension, myocardial infarction, renal disease, other Surgical history: Reports: angioplasty/stent (x3), cholecystectomy, other (AAA repair, left knee surgery.) Psychiatric history: Reports: anxiety, depression - Social History Smoking Status: Current every day smoker Smokeless Tobacco Status: No Alcohol use: Reports: rarely Drug use: Reports: none Physical Exam Visibly dyspneic. Sitting upright on the bed. - General Limitations: no limitations General appearance: alert - Head Head exam: atraumatic - Eye Eye exam: Present: normal appearance - ENT ENT exam: normal exam - Neck Neck exam: Present: normal inspection - Chest Chest inspection: Present: normal inspection, symmetric chest wall rise - Respiratory Respiratory exam: Present: other (Diffuse rhonchi. Coarse crackles posteriorly) - Cardiovascular Cardiovascular exam: Present: tachycardia, normal heart sounds - Rectal Exam Rectal exam: Present: deferred - Extremities Exam Extremities exam: Present: pedal edema, other (Right upper extremity with AV fistula and palpable thrill) - Neurological Exam Neurological exam: Present: alert, oriented X3, CN II-XII intact - Psychiatric Psychiatric exam: Present: normal affect, normal mood - Skin Skin exam: Present: warm, dry, intact Course Course Narrative: Patient presents by EMS with dyspnea. He is tachycardic and hypertensive. Lungs sound wet. IV nitroglycerin drip initiated. BIPAP therapy started - Reevaluation(s) Reevaluation #1: Patient resting comfortably. 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 Case discussed by me with him at 07:52. Nephrology states that the patient signed out from his dialysis session earlier yesterday. Vital Signs Temperature 97.6 F 02/21/17 06:53 Pulse Rate 114 02/21/17 06:53 Respiratory Rate 22 02/21/17 06:53 Blood Pressure 178/107 02/21/17 06:53 O2 Sat by Pulse Oximetry 98 02/21/17 06:53 Temperature 97.6 F 02/21/17 06:56 Pulse Rate 114 02/21/17 06:56 Respiratory Rate 23 02/21/17 07:20 Blood Pressure 178/107 02/21/17 06:56 O2 Sat by Pulse Oximetry 100 02/21/17 07:20 Oxygen Delivery Oxygen Delivery Non Rebreather Mask Shortness of Breath/Dyspnea - Medical Records Medical records reviewed: Yes I reviewed the patient's medical records. Anemia is chronic per my review of records - Lab Data Lab results reviewed: Yes I reviewed the patient's lab results. Result diagrams: 02/21/17 07:20 02/21/17 07:20 Lab Results 02/21/17 02/21/17 02/21/17 Range/Units 07:20 07:20 07:20 WBC 7.5 (4.3-11.1) K/mcL RBC 3.37 L (4.19-5.50) M/mcL Hgb 9.5 L (12.9-16.9) g/dL Hct 29.6 L (37.5-50.1) % MCV 87.8 (83.0-100.0) fL MCH 28.2 (28.0-33.3) pg MCHC 32.1 (31.6-35.5) g/dL RDW 18.2 H (11.5-14.5) % Plt Count 111 L (140-400) K/mcL MPV 11.5 (9.4-12.4) fL Immature Gran % 0.9 (0-4) % Seg Neutrophils % 71.1 % Lymphocytes % 17.2 % Monocytes % 8.0 % Eosinophils % 2.7 % Basophils % 0.1 % Neutrophils # 5.3 (1.6-8.9) K/mcL Lymphocytes # 1.3 (0.6-4.6) K/mcL Monocytes # 0.6 (0.0-1.3) K/mcL Eosinophils # 0.2 (0.0-0.6) K/mcL Basophils # 0.0 (0.0-0.2) K/mcL PT 13.4 H (9.4-12.1) Seconds INR 1.2 Sodium 137 (136-145) mEq/L Potassium 5.0 H (3.5-4.5) mEq/L Chloride 98 (98-109) mEq/L Carbon Dioxide 31 H (19-29) mEq/L BUN 46 H (8-26) mg/dL Creatinine 5.08 H (0.72-1.25) mg/dL Est GFR ( Amer) 14 L (> 60) Est GFR (Non-Af Amer) 11 L (> 60) BUN/Creatinine Ratio 9 (6-26) Glucose 135 H (70-99) mg/dL Calculated Osmolality 298 (280-300) Calcium 9.0 (8.6-10.8) mg/dL Total Bilirubin 0.9 (0.2-1.2) mg/dL AST 21 (5-34) Units/L ALT 16 (0-55) Units/L Alkaline Phosphatase 122 (38-126) Units/L Serum Total Protein 8.3 (6.0-8.3) g/dL Albumin 3.3 L (3.5-5.0) g/dL Globulin 5.0 H (2.4-3.5) g/dL Albumin/Globulin Ratio 0.7 L (1.1-2.2) - EKG Data EKG attestation: Yes I reviewed and interpreted this EKG. EKG results narrative: Tachycardia rate 110. Arterial QRS 118 QT/QTC 358/423. Left anterior fascicular block present. No acute ST segment elevation Critical Care Time Critical Care Time: Yes Total Critical Care Time: 45 Attestation: Dyspnea, hypoxia, pulmonary vascular congestion require BiPAP therapy and IV nitroglycerin
[2017-02-21 07:29] LABS: Basophils % 0.1 %; Eosinophils # 0.2 K/mcL (0.0-0.6); Eosinophils % 2.7 %; Hematocrit 29.6 % (37.5-50.1); Hemoglobin 9.5 g/dL (12.9-16.9); Immature Granulocytes % 0.9 % (0-4); Lymphocytes # 1.3 K/mcL (0.6-4.6); Lymphocytes % 17.2 %; Mean Corpuscular HGB Conc 32.1 g/dL (31.6-35.5); Mean Corpuscular Hemoglobin 28.2 pg (28.0-33.3); Mean Corpuscular Volume 87.8 fL (83.0-100.0); Mean Platelet Volume 11.5 fL (9.4-12.4); Monocytes # 0.6 K/mcL (0.0-1.3); Neutrophils # 5.3 K/mcL (1.6-8.9); Platelet Count 111 K/mcL (140-400); Red Blood Count 3.37 M/mcL (4.19-5.50); Red Cell Distribution Width 18.2 % (11.5-14.5); Segmented Neutrophils % 71.1 %
[2017-02-21 07:45] LABS: Albumin 3.3 g/dL (3.5-5.0); Albumin/Globulin Ratio 0.7 (1.1-2.2); Bilirubin,Total 0.9 mg/dL (0.2-1.2); INR 1.2; Prothrombin Time 13.4 Seconds (9.4-12.1); Total Protein 8.3 g/dL (6.0-8.3)
[2017-02-21] MEDS ORDERED: Furosemide 40 MG/4 ML VIAL IVP ONE (08:28)
[2017-02-21] MEDS ORDERED: Acetaminophen 325 MG TABLET PO PRN (09:10)
[2017-02-21] MEDS ORDERED: Naloxone 0.4 MG/ML INJ IVP PRN (09:10)
[2017-02-21] MEDS ORDERED: *HR* OxyCODONE Immed Rel 15 MG TABLET PO PRN (09:13)
--- NOTE | 2017-02-21 09:45 | Internal Med History&Physical ---
Date of Encounter: 02/21/17 Time of Encounter: 09:43 Assessment and Plan (1) Hypertensive urgency Current visit: Yes Status: Acute BP on arrival 170/107 Improved with nitro Resume home meds and titrate prn (2) Congestive heart failure Current visit: Yes Status: Acute Known CHFpEF ECHO 08/2016 noted CXR with pulmonary edema no JVD, no ankle swelling BNP >2000 Continue Lasix daily, patient is ESRD but still makes urine Continue home dose of Coreg Not on ACEI or ARB, no reason per chart , possibly from hyperkalemia Fluid restriction Patient will also be resuming his hemodialysis Qualifiers: Congestive heart failure type: diastolic Congestive heart failure chronicity: acute on chronic Qualified Code(s): I50.33 - Acute on chronic diastolic (congestive) heart failure (3) ESRD on dialysis Current visit: Yes Status: Chronic Dr. Del Toro has been consulted by ER team for HD (4) Atrial fibrillation Current visit: Yes Status: Chronic Chronic, slightly tachcyardic Resume home BB Not on A/C due to chikis hemoptysis in the past Qualifiers: Atrial fibrillation type: chronic Qualified Code(s): I48.2 - Chronic atrial fibrillation (5) Tobacco abuse Current visit: Yes Status: Chronic NRT prn Counselled for 2 minutes on tobacco cessation (6) COPD (chronic obstructive pulmonary disease) Current visit: Yes Status: Chronic Not in exacerbation, no wheezing on exam, patient denies cough Duonebs prn Qualifiers: COPD type: unspecified COPD Qualified Code(s): J44.9 - Chronic obstructive pulmonary disease, unspecified Internal Medicine - H&P: HPI Chief complaint: I could not breathe Admitted From: Home Plans for Post Hospital Care: Home History of present illness: 71 M, known ESRD on hemodialysis, hypertension, coronary artery disease status post ME, hyperlipidemia and history of aortic aneurysm, Afib not on anticoagulation due to history of chikis hemoptysis , tobacco abuse, DM, CHFpEF ( ECHO 08/2016 with LVEF 55% and moderate diastolic dysfunction and pulmonary HTN) , COPD Patient is known to be noncompliant with his medications and hemodialysis, recently discharged earlier this month to SNF following admission for accelerated admission, HCAP, delirium He returns to the ER with complains of dyspnea at rest. He was found to be hypertensive, tachycardiac , documented O2 saturation per chart, was acceptable , placed on BIPAP and nitro drip with some relief, given Lasix IV. Chem showed elevated urea above baseline, hyperkalemia, with no EKG changes, Troponin 0.04 and BNP 2745. Per de alcholizer, patient signed out from his hemodialysis session yesterday without completing his HD His CXR on presentation shows pulmonary edema He is seen at bedside with his son, Judd, a minor with whom he resides He reports he was discharged from the SNF yesterday and when he got home, he couldnt breathe. He reports his breathing has improved with the nitro, BiPAP and Lasix. He denies chest pain, orthopnea or PND. He denies ankle swelling, abdominal pain, change in bowel movement, and change in urinary habits. He reports compliance with medications, he still smokes. Past Med Surg Social Fam HX - Past Medical History Medical history: aortic aneurysm, diabetes, dialysis, hyperlipidemia, hypertension, myocardial infarction, renal disease, other Psychiatric history: anxiety, depression - Past Surgical History Surgical History: angioplasty/stent (x3), cholecystectomy, other (AAA repair, left knee surgery.) - Social History Smoking Status: Current every day smoker Smokeless Tobacco Status: No Alcohol use: rarely Drug use: none - Family History Mother Hx Family Cardiac Disorders: Yes (HTN) Father Adopted: No Living Status: Hx Family Cardiac Disorders: Yes (HTN) Hx Family Respiratory Disorders: No Hx Family Cancer: Yes Hx Family GI Disorders: No Hx Family Endocrine Disorder: No Hx Family Neuromuscular Disorders: No Hx Family Neurologic Disorders: No Hx Family HEENT Disorders: No Hx Family Autoimmune Disorders: No Internal Medicine - H&P: Meds Carvedilol [Coreg] 25 mg PO BID 09/08/15 [History] cloNIDine HCl [CloNIDine HCl] 0.1 mg PO QAM 09/08/15 [History] Albuterol Neb [AccuNeb] 1.25 mg IH Q4H PRN 09/21/16 [History] Budesonide/Formoterol 160/4.5 [Symbicort 160/4.5] 2 puff IH BIDR 09/22/16 [ History] Cinacalcet [Sensipar] 30 mg PO DAILY 09/22/16 [History] Omeprazole [PriLOSEC] 20 mg PO DAILY 09/22/16 [History] amLODIPine [Norvasc] 5 mg PO DAILY 09/22/16 [History] Aspirin 81 mg PO DAILY #0 tab.chew 09/28/16 [Rx] Oxycodone HCl 15 mg PO Q6H PRN #20 tablet 02/03/17 [Rx] Lactose-Reduced Food [Boost] 237 ml PO DAILY 02/21/17 [History] Allergies rofecoxib [From Vioxx] Allergy (Verified 02/21/17 06:52) Swelling of Lip/Tongue/Throat All Systems PM: A 10-system review of systems was performed and is negative for pertinent findings except as documented above in the HPI. - Constitutional Constitutional: no chills, no fever(s), no night sweats - EENT Eyes: no change in vision, no discharge, no pain, no photophobia Ears: no ear discharge, no ear pain, no tinnitus Nose, mouth and throat: no dysphagia, no nasal discharge, no neck pain, no sore throat - Cardiovascular Cardiovascular ROS IM: as per HPI - Respiratory Respiratory: as per HPI - Gastrointestinal Gastrointestinal: no abdominal pain, no diarrhea, no hematemesis, no hematochezia, no melena, no nausea, no vomiting - Musculoskeletal Musculoskeletal ROS IM: no numbness, no tingling - Integumentary Integumentary IM: no rash, no unusual bruising - Neurological Neurological ROS: no confusion, no convulsions, no focal weakness, no numbness, no tingling, no tremor(s) - Hematologic/Lymphatic Hematologic/Lymphatic: no easy bruising - Constitutional Vitals: Temp Pulse Resp BP Pulse Ox 97.6 F 110 18 164/94 96 02/21/17 06:56 02/21/17 08:42 02/21/17 08:42 02/21/17 08:42 02/21/17 08:42 General appearance: Present: A&O X 3, pleasant, no acute distress - Head Head exam: Present: atraumatic, normocephalic - Eye Eye exam: Present: PERRL, conjuntiva pink, sclera anicteric Pupils: Present: PERRL - Neck Neck exam general surgery: Present: supple, trachea midline. Absent: lymphadenopathy - Respiratory Respiratory exam: Present: CTAB. Absent: accessory muscle use, rales, rhonchi, wheezes - Cardiovascular Cardiovascular exam: Present: irregular rhythm, +S1, +S2, tachycardia. Absent: diastolic murmur, gallop, rubs, systolic murmur - GI/Abdominal GI/Abdominal exam: Present: normal bowel sounds, soft, no peritoneal signs. Absent: distended, tenderness - Extremities Exam Extremities exam: Present: warm, radial pulses palpable and symetrical. Absent : calf tenderness, cyanotic, pedal edema Additional comments: R AVF thrill on forearm - Neurological Exam Neurological exam: Present: alert, CN II-XII intact, oriented X3, no focal deficits. Absent: pronater drift, facial droop, speech deficit - Skin Skin exam: Present: dry (Very dry cracked skin) Internal Med - H&P Results - Labs CBC & Chem 7: 02/21/17 07:20 02/21/17 07:20
--- NOTE | 2017-02-21 10:04 | Electrocardiograph Report ---
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
[2017-02-21] MEDS: Budesonide/Formoterol 160/4.5 MDI IH SCH ×2 (10:20→21:06)
[2017-02-21] MEDS: amLODIPine 5 MG TABLET PO SCH (10:39)
[2017-02-21] MEDS ORDERED: 0.9 % Sodium Chloride 500 ML ONE (12:21)
[2017-02-21] MEDS ORDERED: cloNIDine HCl 0.1 MG TABLET PO ONE (12:31)
--- NOTE | 2017-02-21 13:04 | Nephrology Consult Note ---
Date of Encounter: 02/21/17 Time of Encounter: 13:01 Assessment and Plan (1) ESRD on dialysis Current Visit: Yes Status: Chronic Patient has a history of end-stage renal disease related to hypertension. He has a history of being poorly compliant with dialysis attendance, fluid restriction, and staying for his entire dialysis treatment. He has a history of poor compliance with taking his antihypertensive medications. He continues to use tobacco products. Clinically the patient has poorly controlled hypertension because of his poor compliance. He has some radiographic evidence of mild congestive heart failure. Patient will be sent to dialysis for ultrafiltration today and then undergo routine dialysis tomorrow. I will get the patient started back on his Coreg and losartan and amlodipine for his blood pressure. (2) Benign hypertensive kidney disease with end stage renal disease Current Visit: Yes Status: Acute (3) Atrial fibrillation Current Visit: No Status: Chronic Qualifiers: Atrial fibrillation type: chronic Qualified Code(s): I48.2 - Chronic atrial fibrillation History of Present Illness - History of Present Illness This is a 71-year-old male with end-stage renal disease. He receives dialysis every Monday [place]. Patient was last dialyzed yesterday. However he left early and did not complete his treatment yesterday. Patient presented to the emergency room with complaints of shortness of breath. Chest x-ray shows some interstitial edema along with cardiomegaly. Patient's blood pressure is poorly controlled. Patient was recently hospitalized in early January. He was discharged on February 03 in [facility]. At that time he had been admitted with mental status changes and delirium. He reports that he left the ECF yesterday. He reports that he was having trouble breathing at home so he went to a hotel in [place]. Subsequently he says he came to the emergency room. Patient says he only blood pressure medication he has been taking his clonidine. Discharge summary from February 03 reports the patient is supposed to be on Coreg clonidine and amlodipine and losartan. Patient is currently on nitroglycerin drip. Patient is lying slumped over in bed. He wakens easily. Blood pressure is 167/106. He now says he is not short of breath. He denies any chest pain. He is on O2 with a nasal cannula. Past Med Surg Social Fam HX - Past Medical History Medical history: aortic aneurysm, diabetes, dialysis, hyperlipidemia, hypertension, myocardial infarction, renal disease, other Psychiatric history: anxiety, depression - Past Surgical History Surgical History: angioplasty/stent (x3), cholecystectomy, other (AAA repair, left knee surgery.) - Social History Smoking Status: Current every day smoker Smokeless Tobacco Status: No Alcohol use: rarely Drug use: none - Family History Mother Hx Family Cardiac Disorders: Yes (HTN) Father Adopted: No Living Status: Hx Family Cardiac Disorders: Yes (HTN) Hx Family Respiratory Disorders: No Hx Family Cancer: Yes Hx Family GI Disorders: No Hx Family Endocrine Disorder: No Hx Family Neuromuscular Disorders: No Hx Family Neurologic Disorders: No Hx Family HEENT Disorders: No Hx Family Autoimmune Disorders: No Medications and Allergies Carvedilol [Coreg] 25 mg PO BID 09/08/15 [History] cloNIDine HCl [CloNIDine HCl] 0.1 mg PO QAM 09/08/15 [History] Albuterol Neb [AccuNeb] 1.25 mg IH Q4H PRN 09/21/16 [History] Budesonide/Formoterol 160/4.5 [Symbicort 160/4.5] 2 puff IH BIDR 09/22/16 [ History] Cinacalcet [Sensipar] 30 mg PO DAILY 09/22/16 [History] Omeprazole [PriLOSEC] 20 mg PO DAILY 09/22/16 [History] amLODIPine [Norvasc] 5 mg PO DAILY 09/22/16 [History] Aspirin 81 mg PO DAILY #0 tab.chew 09/28/16 [Rx] Oxycodone HCl 15 mg PO Q6H PRN #20 tablet 02/03/17 [Rx] Lactose-Reduced Food [Boost] 237 ml PO DAILY 02/21/17 [History] Allergies rofecoxib [From Vioxx] Allergy (Verified 02/21/17 06:52) Swelling of Lip/Tongue/Throat Review of Systems Constitutional: as per HPI Nose, mouth and throat: no dizziness, no headache(s) Cardiovascular: as per HPI, dyspnea, dyspnea on exertion Respiratory: dyspnea, dyspnea on exertion Gastrointestinal: no abdominal pain, no change in bowel habits Musculoskeletal: no muscle weakness, no numbness Integumentary: no hirsutism, no striae Neurological: as per HPI Psychiatric: no depression, no difficulty concentrating Endocrine: as per HPI Exam - Vital Signs Vital signs: Initial Vital Signs Temp Pulse Resp BP Pulse Ox 97.6 F 114 22 178/107 98 02/21/17 06:53 02/21/17 06:53 02/21/17 06:53 02/21/17 06:53 02/21/17 06:53 Vital Signs - Last 8 Hours Temp Pulse Resp BP Pulse Ox 02/21/17 12:16 167/106 02/21/17 10:29 97.9 F 107 17 171/89 93 02/21/17 10:20 18 96 02/21/17 09:42 18 140/92 Intake and Output 02/20/17 02/21/17 02/21/17 23:59 07:59 15:59 Intake Total 0 / 0 Output Total 0 / 0 Balance 0 / 0 Intake: IV Fluids 0 / 0 Nitroglycerin 25 mg In 0 / 0 250 ml @ 5 MCG/MIN 3 mls/ hr IVC .Q24H NENA Rx#: [id number] Oral 0 / 0 Output: Urine 0 / 0 Other: Blood Glucose* 114 - General Appearance Exam: Patient appears to be alert and oriented. He is in no acute distress. Lungs mage breath sounds with occasional rhonchi as well as some wheezing. Cigarettes are noted in the patient's pants pocket. Heart irregular rate and rhythm consistent with atrial fibrillation. Abdomen is obese. Bowel sounds are present. There is no abdominal tenderness guarding or rigidity. Lower extremities show minimal lower extremity swelling. There is a functioning AV fistula in the right upper extremity. Results - Lab Results 02/21/17 07:20 02/21/17 07:20 Most recent lab results Calcium 9.0 mg/dL (8.6-10.8) 02/21/17 07:20 Consult Discharge Plan - Plan Referrals: Chilo Lewis Jr, MD [Primary Care Provider] -
[2017-02-21] MEDS ORDERED: 0.9 % Sodium Chloride 250 ML IVC PRN (13:07)
[2017-02-21] MEDS: *HR* Heparin 5,000 UNIT/ML VIAL SQ SCH ×2 (16:33→23:42)
[2017-02-22 05:10] LABS: Monocytes % 9.3 %
[2017-02-22 05:11] LABS: Basophils % 0.3 %; Eosinophils # 0.4 K/mcL (0.0-0.6); Eosinophils % 4.6 %; Hematocrit 28.5 % (37.5-50.1); Hemoglobin 9.2 g/dL (12.9-16.9); Immature Platelets 8.2 % (1.1-6.1); Lymphocytes # 1.4 K/mcL (0.6-4.6); Lymphocytes % 18.6 %; Mean Corpuscular HGB Conc 32.3 g/dL (31.6-35.5); Mean Corpuscular Volume 86.9 fL (83.0-100.0); Mean Platelet Volume 11.9 fL (9.4-12.4); Monocytes # 0.7 K/mcL (0.0-1.3); Red Blood Count 3.28 M/mcL (4.19-5.50); Red Cell Distribution Width 17.7 % (11.5-14.5); Segmented Neutrophils % 66.2 %
[2017-02-22 05:16] LABS: Platelet Count 95 K/mcL (140-400)
[2017-02-22] MEDS: Budesonide/Formoterol 160/4.5 MDI IH SCH ×2 (07:49→20:18)
[2017-02-22] MEDS ORDERED: *HR* OxyCODONE Immed Rel 15 MG TABLET PO PRN (08:30)
[2017-02-22] MEDS: *HR* Heparin 5,000 UNIT/ML VIAL SQ SCH ×2 (08:34→16:14)
[2017-02-22] MEDS: Aspirin 81 MG TAB.CHEW PO SCH (08:34)
[2017-02-22] MEDS ORDERED: NON-FORMULARY MEDICATION 1 EACH EACH (Lactose-Reduced Food [Boost] 237 ML) PO SCH (09:00)
[2017-02-22] MEDS ORDERED: Furosemide 40 MG/4 ML VIAL IVP SCH (09:00)
[2017-02-22 11:24] LABS: Hepatitis B Surface Antibody 0.87 mIU/mL; Hepatitis B Surface Antigen Nonreactive (Nonreactive)
[2017-02-22] MEDS ORDERED: 0.9 % Sodium Chloride 250 ML IVC PRN (11:50)
[2017-02-22] MEDS ORDERED: 0.9 % Sodium Chloride 1,000 ML PRIME SCH (12:15)
--- NOTE | 2017-02-22 13:38 | Nephrology Progress Note ---
Date of Encounter: 02/22/17 Time of Encounter: 13:30 - Assessment and Plan (1) ESRD on dialysis Current Visit: Yes Status: Chronic UF yesterday. HD x 8 minutes today. States leaving AMA. At baseline mental status. Risks of volume overload discussed at length with patient Subjective Interval history: Seen at HD, Demanded to be taken of HD after only 8 minutes. Gianna does not want to do dialysis at [facility] anymore. Discussed risks of volume overload. States he is leaving AMA. Patients mental status is at his normal baseline. Objective - Vital Signs Vital signs: Vital Signs Temp Pulse Resp BP Pulse Ox 02/22/17 11:00 97.7 F 96 18 96 02/22/17 07:52 93 02/22/17 07:05 98.7 F 94 18 133/76 93 02/22/17 04:33 98.0 F 103 17 141/78 92 02/21/17 23:08 98.0 F 102 17 149/60 96 02/21/17 20:27 98.3 F 80 17 139/70 96 02/21/17 16:27 97.4 F L 103 16 151/64 92 02/21/17 15:50 97.9 F 16 133/63 02/21/17 15:40 126/59 02/21/17 15:30 142/75 02/21/17 15:15 141/63 02/21/17 15:00 144/79 02/21/17 14:45 153/76 02/21/17 14:30 159/93 02/21/17 14:15 97.9 F 18 147/81 Intake and Output 02/21/17 02/22/17 02/22/17 23:59 07:59 15:59 Intake Total 270 / 270 480 / 480 Balance 270 / 270 480 / 480 Intake: Oral 270 / 270 480 / 480 Other: Meal Dinner Lunch Percent of Meal Consumed 100% 100% # Urine Diapers 1 Weight 111.4 kg Blood Glucose* 132 159 157 Patient Weight 02/22/17 23:59 Weight 111.4 kg - General Appearance General appearance: Present: well-developed, well-nourished, appears started age , obese EENT: Present: mucous membranes moist Neck: Present: no JVD Respiratory: Present: clear Cardiology: Present: no edema, irregular rhythm Gastrointestinal: Present: normoactive bowel sounds, no tenderness Integumentary: Present: warm and dry Neurologic: Present: alert and oriented x3 Psychiatric: Present: mood/affect appropriate, agitated - Lab 02/22/17 04:51 02/21/17 07:20 Most recent lab results Calcium 9.0 mg/dL (8.6-10.8) 02/21/17 07:20 Consult Discharge Plan - Plan Referrals: Chilo Lewis Jr, MD [Primary Care Provider] -
[2017-02-22] MEDS: amLODIPine 5 MG TABLET PO SCH (15:13)
[2017-02-22] MEDS: cloNIDine HCl 0.1 MG TABLET PO SCH (15:13)
[2017-02-22] MEDS ORDERED: 0.9 % Sodium Chloride 2,000 ML ONE (16:06)
--- NOTE | 2017-02-22 17:20 | Internal Med Progress Note ---
Date of Encounter: 02/22/17 Time of Encounter: 10:00 - Assessment and plan (1) Volume overload Current Visit: No Status: Resolved Assessment and plan: Patient is noncompliant with hemodialysis. Not finish last hemodialysis on Monday. Patient had UF yesterday, symptom has slightly improved. Scheduled hemodialysis today, but patient interrupted hemodialysis only after 8 minutes on machine. Patient is mentally clear, oriented 3, understand the risks. His son has been called, hopefully patient can have the hemodialysis tonight. Qualifiers: Hypervolemia type: unspecified Qualified Code(s): E87.70 - Fluid overload, unspecified (2) ESRD on dialysis Current Visit: Yes Status: Chronic Assessment and plan: Need to continue with the scheduled dialysis. Patient is not compliant with dialysis now. (3) DVT prophylaxis Current Visit: No Status: Acute Assessment and plan: Heparin subcutaneously (4) Atrial fibrillation Current Visit: No Status: Chronic Assessment and plan: Rate is well controlled. Sinus rhythm now. Not on anticoagulation because of hemoptysis in the past. Qualifiers: Atrial fibrillation type: paroxysmal Qualified Code(s): I48.0 - Paroxysmal atrial fibrillation (5) CAD (coronary artery disease) Current Visit: No Status: Chronic Assessment and plan: No chest pain. Continue home medications Qualifiers: Coronary Disease-Associated Artery/Lesion type: [place] artery [place] vs. transplanted heart: [place] heart Associated angina: without angina Qualified Code(s): I25.10 - Atherosclerotic heart disease of [place] coronary artery without angina pectoris (6) Tobacco abuse Current Visit: Yes Status: Chronic Assessment and plan: Smoking cessation education has been done. 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 We will continue home medication. Closely monitor blood pressure. BP 157/81 now. Qualifiers: Hypertension type: essential hypertension Qualified Code(s): I10 - Essential (primary) hypertension - Time Spent With Patient 25 - 35 minutes - Subjective Interval history: Patient is a 71-year-old male admitted for fluid overload. Patient has end- stage renal disease on hemodialysis, however, he is not compliant with hemodialysis. Past medical history also includes COPD, A. fib, hypertension, and CHF I saw and examined the patient today. He is still in acute respiratory distress. Had UF yesterday. Plan for hemodialysis today, however, hemodialysis interrupted after 8 minutes because patient said he wanted to leave with AMA. I met patient again in his room, he is awake alert, oriented 3. He understand that hemodialysis is necessary for him, without hemodialysis, he can develop fluid overload, worsening shortness of breath, hypokalemia, or even . He requests to be transferred to [facility] for dialysis, however that is not an inpatient facility and patient's condition needed hospitalization and close monitoring. His son (also POA) was called by RN, said that he will come and persuade pt to proceed for HD here. Patient agreed to stay right now, on oxygen supportive treatment. - Constitutional Vitals: Temp Pulse Resp BP Pulse Ox 97.9 F 96 18 157/81 96 02/22/17 15:38 02/22/17 15:38 02/22/17 15:38 02/22/17 15:38 02/22/17 15:38 General appearance: Present: mild distress, A&O X 3, pleasant - Head Head exam: Present: atraumatic, normocephalic - Eye Eye exam: Present: PERRL, conjuntiva pink, sclera anicteric Pupils: Present: PERRL - Neck Neck exam general surgery: Present: supple, trachea midline. Absent: lymphadenopathy - Respiratory Respiratory exam: Present: CTAB. Absent: accessory muscle use, rales, rhonchi, wheezes - Cardiovascular Cardiovascular exam: Present: RRR, +S1, +S2. Absent: diastolic murmur, gallop, rubs, systolic murmur - GI/Abdominal GI/Abdominal exam: Present: normal bowel sounds, soft, no peritoneal signs. Absent: distended, tenderness - Extremities Exam Extremities exam: Present: warm, radial pulses palpable and symetrical. Absent : calf tenderness, cyanotic, pedal edema - Neurological Exam Neurological exam: Present: CN II-XII intact, oriented X3, no focal deficits. Absent: pronater drift, facial droop, speech deficit - Skin Skin exam: Present: dry, intact Internal Medicine: Result - Labs CBC & Chem 7: 02/22/17 04:51 02/21/17 07:20 Labs: Short CBC 02/22/17 Range/Units 04:51 WBC 7.6 (4.3-11.1) K/mcL Hgb 9.2 L (12.9-16.9) g/dL Hct 28.5 L (37.5-50.1) % Plt Count 95 L (140-400) K/mcL Neutrophils # 5.0 (1.6-8.9) K/mcL - ABG Interpretation ABG results: PT/INR, D-dimer PT 13.4 Seconds (9.4-12.1) H 02/21/17 07:20 Consult Discharge Plan - Plan Referrals: Chilo Lewis Jr, MD [Primary Care Provider] -
[2017-02-23] MEDS: *HR* Heparin 5,000 UNIT/ML VIAL SQ SCH ×4 (01:23→23:22)
[2017-02-23 06:58] LABS: Calcium 8.7 mg/dL (8.6-10.8)
[2017-02-23 07:02] LABS: Potassium 6.1 mEq/L (3.5-4.5)
[2017-02-23 07:10] LABS: Basophils % 0.1 %; Eosinophils # 0.1 K/mcL (0.0-0.6); Eosinophils % 1.4 %; Hematocrit 27.9 % (37.5-50.1); Hemoglobin 8.8 g/dL (12.9-16.9); Immature Granulocytes % 0.7 % (0-4); Lymphocytes # 1.3 K/mcL (0.6-4.6); Mean Corpuscular HGB Conc 31.5 g/dL (31.6-35.5); Mean Corpuscular Hemoglobin 27.8 pg (28.0-33.3); Mean Corpuscular Volume 88.3 fL (83.0-100.0); Mean Platelet Volume 12.4 fL (9.4-12.4); Monocytes # 0.9 K/mcL (0.0-1.3); Monocytes % 9.2 %; Neutrophils # 7.4 K/mcL (1.6-8.9); Platelet Count 103 K/mcL (140-400); Red Blood Count 3.16 M/mcL (4.19-5.50); Red Cell Distribution Width 17.6 % (11.5-14.5); Segmented Neutrophils % 75.6 %
[2017-02-23] MEDS: Budesonide/Formoterol 160/4.5 MDI IH SCH ×2 (07:58→20:04)
[2017-02-23] MEDS: Aspirin 81 MG TAB.CHEW PO SCH (09:05)
[2017-02-23] MEDS: amLODIPine 5 MG TABLET PO SCH (09:05)
[2017-02-23] MEDS: cloNIDine HCl 0.1 MG TABLET PO SCH (09:06)
--- NOTE | 2017-02-23 09:53 | Nephrology Progress Note ---
Date of Encounter: 02/23/17 Time of Encounter: 09:30 - Assessment and Plan (1) ESRD on dialysis Current Visit: Yes Status: Chronic At baseline mental status. Risks of volume overload, critically elevated K 6.1 discussed at length with patient and HD compliance. Agrees to HD today, orders given and outpatient tomorrow in [facility], keeping MWF schedule. Subjective Interval history: Lying in bed, no new complaints. Did not sign out yesterday AMA. Discussed with patient critically elevated K 6.1 and volume overload and need for HD today. Discussed compliance and life choices regarding frequently missed or shortened HD treatments inpatient and outpatient. Offered Palliative Care to discuss if wants to stop HD altogether. Vehemently against stopping HD altogether. Then told needs to start being compliant with treatments. Patient agreed to HD today and tomorrow outpatient in [facility], keeping MWF schedule. Objective - Vital Signs Vital signs: Vital Signs Temp Pulse Resp BP Pulse Ox 02/23/17 07:59 94 02/23/17 07:44 98.9 F 88 17 156/86 94 02/23/17 04:49 98.6 F 84 18 125/80 92 02/22/17 23:08 98.4 F 89 18 121/53 93 02/22/17 20:19 18 91 02/22/17 19:19 97.7 F 77 17 112/64 90 02/22/17 15:38 97.9 F 96 18 157/81 96 02/22/17 13:20 97.7 F 18 153/66 02/22/17 13:08 151/71 02/22/17 13:00 97.7 F 18 152/64 02/22/17 11:00 97.7 F 96 18 96 Intake and Output 02/22/17 02/23/17 02/23/17 23:59 07:59 15:59 Intake Total 240 / 240 240 / 240 Balance 240 / 240 240 / 240 Intake: Oral 240 / 240 240 / 240 Other: Meal 2 Arabella. Pudding Breakfast Percent of Meal Consumed 100% 100% Stool Size Moderate Stool Consistency soft formed Stool Characteristics Normal for Patient Stool Color Brown # Urine Diapers 1 Weight 111.26 kg Blood Glucose* 129 153 Patient Weight 02/23/17 23:59 Weight 111.26 kg - General Appearance General appearance: Present: well-developed, well-nourished, appears started age , obese EENT: Present: mucous membranes moist Neck: Present: no JVD Respiratory: Present: clear Cardiology: Present: edema, irregular rhythm Additional Comments: mild Gastrointestinal: Present: normoactive bowel sounds, no tenderness Integumentary: Present: warm and dry Neurologic: Present: alert and oriented x3 Psychiatric: Present: mood/affect appropriate, cooperative - Lab 02/23/17 06:23 02/23/17 06:23 Most recent lab results Calcium 8.7 mg/dL (8.6-10.8) 02/23/17 06:23 Consult Discharge Plan - Plan Referrals: Chilo Lewsi Jr, MD [Primary Care Provider] -
[2017-02-23] MEDS ORDERED: 0.9 % Sodium Chloride 250 ML IVC PRN (10:26)
[2017-02-23] MEDS ORDERED: 0.9 % Sodium Chloride 1,000 ML PRIME SCH (10:30)
[2017-02-23] MEDS ORDERED: 0.9 % Sodium Chloride 1,000 ML ONE (16:58)
--- NOTE | 2017-02-23 16:58 | Internal Med Progress Note ---
Date of Encounter: 02/23/17 Time of Encounter: 16:30 - Assessment and plan (1) Acute and chronic respiratory failure with hypoxia Current Visit: Yes Status: Acute Assessment and plan: He requires oxygen at discharge and is currently on 5 liters. Will keep here tonight and attempt to wean down oxygen. Plan for dialysis tomorrow at usual day and home on oxygen when set up. (2) Volume overload Current Visit: No Status: Acute Assessment and plan: Due to noncompliance with dialysis. Appears to be improving with dialysis at this time. Qualifiers: Hypervolemia type: unspecified Qualified Code(s): E87.70 - Fluid overload, unspecified (3) Atrial fibrillation Current Visit: No Status: Chronic Assessment and plan: Not on AC due to prior hemoptysis. No issues at this time. In NSR. Qualifiers: Atrial fibrillation type: paroxysmal Qualified Code(s): I48.0 - Paroxysmal atrial fibrillation (4) Anemia Current Visit: Yes Status: Acute Qualifiers: Anemia type: due to chronic kidney disease Chronic kidney disease stage: on chronic dialysis Qualified Code(s): N18.6 - End stage renal disease; D63.1 - Anemia in chronic kidney disease; Z99.2 - Dependence on renal dialysis (5) Tobacco abuse Current Visit: Yes Status: Chronic Assessment and plan: Smoking cessation education has been done. (6) Hypertension Current Visit: Yes Status: Acute Assessment and plan: Patient is noncompliant with hypertension medication. Continue current medications. Qualifiers: Hypertension type: essential hypertension Qualified Code(s): I10 - Essential (primary) hypertension (7) ESRD on dialysis Current Visit: Yes Status: Chronic Assessment and plan: Need to continue with the scheduled dialysis. Patient is not compliant with dialysis now. - Subjective Interval history: Mr. Hernandez is currently admitted for acute pulmonary edema related to volume overload and noncompliance with dialysis. He remains moderate to high risk due to potential for worsening respiratory status. Mr. Hernandez returned from dialysis. He feels fatigued but overall no new issues. He has qualified for home oxygen but is currently on 5 liters. No CP. No fever or chills. No diarrhea. - Constitutional Vitals: Temp Pulse Resp BP Pulse Ox 100.0 F H 87 20 165/70 95 02/23/17 16:07 02/23/17 16:07 02/23/17 14:35 02/23/17 14:35 02/23/17 16:07 General appearance: Present: A&O X 3, pleasant - Head Head exam: Present: normocephalic - Eye Eye exam: Present: EOMI, conjuntiva pink - ENT ENT exam: Present: mucous membranes dry - Respiratory Respiratory exam: Present: decreased breath sounds, CTAB. Absent: rhonchi, wheezes - Cardiovascular Cardiovascular exam: Present: distant heart sounds, RRR. Absent: tachycardia - GI/Abdominal GI/Abdominal exam: Present: soft. Absent: tenderness - Extremities Exam Extremities exam: Present: warm. Absent: tenderness - Neurological Exam Neurological exam: Present: alert, oriented X3 - Skin Skin exam: Present: dry, warm. Absent: rash Internal Medicine: Result - Labs CBC & Chem 7: 02/23/17 06:23 02/23/17 06:23 Labs: Short CBC 02/23/17 Range/Units 06:23 WBC 9.9 (4.3-11.1) K/mcL Hgb 8.8 L (12.9-16.9) g/dL Hct 27.9 L (37.5-50.1) % Plt Count 103 L (140-400) K/mcL Neutrophils # 7.4 (1.6-8.9) K/mcL BMP 02/23/17 06:23 Sodium 134 L Potassium 6.1 H D Chloride 97 L Carbon Dioxide 27 BUN 78 H D Creatinine 6.60 H Glucose 95 Calcium 8.7 - ABG Interpretation ABG results: PT/INR, D-dimer PT 13.4 Seconds (9.4-12.1) H 02/21/17 07:20 Consult Discharge Plan - Plan Referrals: Chilo Lewis Jr, MD [Primary Care Provider] - 03/02/17 9:00 am
[2017-02-24 06:44] VITALS: BP 124/63
[2017-02-24 06:47] LABS: Hematocrit 28.4 % (37.5-50.1); Immature Platelets 7.9 % (1.1-6.1); Mean Corpuscular HGB Conc 31.7 g/dL (31.6-35.5); Mean Corpuscular Hemoglobin 27.7 pg (28.0-33.3); Mean Corpuscular Volume 87.4 fL (83.0-100.0); Mean Platelet Volume 11.3 fL (9.4-12.4); Red Blood Count 3.25 M/mcL (4.19-5.50); Red Cell Distribution Width 17.6 % (11.5-14.5)
[2017-02-24 06:57] LABS: Calcium 8.7 mg/dL (8.6-10.8); Potassium 5.6 mEq/L (3.5-4.5)
[2017-02-24] MEDS: Budesonide/Formoterol 160/4.5 MDI IH SCH (08:03)
[2017-02-24] MEDS ORDERED: 0.9 % Sodium Chloride 250 ML IVC PRN (08:38)
[2017-02-24] MEDS: *HR* Heparin 5,000 UNIT/ML VIAL SQ SCH (08:45)
[2017-02-24] MEDS: amLODIPine 5 MG TABLET PO SCH (08:45)
[2017-02-24] MEDS ORDERED: 0.9 % Sodium Chloride 1,000 ML PRIME SCH (08:45)
[2017-02-24] MEDS: cloNIDine HCl 0.1 MG TABLET PO SCH (08:46)
[2017-02-24] MEDS: Aspirin 81 MG TAB.CHEW PO SCH (08:46)
--- NOTE | 2017-02-24 08:56 | Discharge Summary ---
Date of Encounter: 02/24/17 Time of Encounter: 08:52 - Discharge Diagnosis (1) Acute and chronic respiratory failure with hypoxia Priority: Primary Status: Acute (2) Hypertensive urgency Priority: Primary Status: Acute (3) Volume overload Priority: Primary Status: Acute Qualifiers: Hypervolemia type: unspecified Qualified Code(s): E87.70 - Fluid overload, unspecified (4) Atrial fibrillation Priority: Secondary Status: Chronic Qualifiers: Atrial fibrillation type: paroxysmal Qualified Code(s): I48.0 - Paroxysmal atrial fibrillation (5) Anemia Priority: Secondary Status: Acute Qualifiers: Anemia type: due to chronic kidney disease Chronic kidney disease stage: on chronic dialysis Qualified Code(s): N18.6 - End stage renal disease; D63.1 - Anemia in chronic kidney disease; Z99.2 - Dependence on renal dialysis (6) Tobacco abuse Priority: Secondary Status: Chronic (7) Hypertension Priority: Secondary Status: Acute Qualifiers: Hypertension type: essential hypertension Qualified Code(s): I10 - Essential (primary) hypertension (8) ESRD on dialysis Priority: Secondary Status: Chronic (9) COPD (chronic obstructive pulmonary disease) Priority: Secondary Status: Chronic Qualifiers: COPD type: emphysema Emphysema type: other Qualified Code(s): J43.8 - Other emphysema (10) Diabetes Priority: Secondary Status: Chronic Qualifiers: Diabetes mellitus type: type 2 Diabetes mellitus complication status: with kidney complications Diabetes mellitus complication detail: with other kidney complication 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 transplanted heart: [place] heart Associated angina: without angina Qualified Code(s): I25.10 - Atherosclerotic heart disease of [place] coronary artery without angina pectoris - Discharge Medications Prescriptions: Losartan [Cozaar] 25 mg PO BID #60 tablet Home Medications: Carvedilol [Coreg] 25 mg PO BID 09/08/15 [History] cloNIDine HCl [CloNIDine HCl] 0.1 mg PO QAM 09/08/15 [History] Albuterol Neb [AccuNeb] 1.25 mg IH Q4H PRN 09/21/16 [History] Budesonide/Formoterol 160/4.5 [Symbicort 160/4.5] 2 puff IH BIDR 09/22/16 [ History] Cinacalcet [Sensipar] 30 mg PO DAILY 09/22/16 [History] Omeprazole [PriLOSEC] 20 mg PO DAILY 09/22/16 [History] amLODIPine [Norvasc] 5 mg PO DAILY 09/22/16 [History] Aspirin 81 mg PO DAILY #0 tab.chew 09/28/16 [Rx] Oxycodone HCl 15 mg PO Q6H PRN #20 tablet 02/03/17 [Rx] Lactose-Reduced Food [Boost] 237 ml PO DAILY 02/21/17 [History] Docusate [Colace] 100 mg PO BID PRN #0 capsule 02/24/17 [Rx] Losartan [Cozaar] 25 mg PO BID #60 tablet 02/24/17 [Rx] Allergies/Adverse Reactions: Allergies rofecoxib [From Vioxx] Allergy (Verified 02/21/17 06:52) Swelling of Lip/Tongue/Throat Date of admission: 02/23/17 16:53 Primary care physician: Chilo Lewis Jr, MD Consults: 02/24/17 08:45 Consult to Dialysis [CONS] ONCE Discharging clinician: Donnie Cobos Anticipated date of discharge: 02/24/17 - Patient Status Disposition: Home, Self-Care Condition: Fair Functional capacity at discharge: independent ambulation Overall status at discharge: patient is progressing back to baseline - Discharge Instructions Instructions: Heart Failure (DC), Acute Respiratory Distress Syndrome (DC) Follow Up With: Chilo Lewis Jr, MD [Primary Care Provider] - 03/02/17 9:00 am - Diet and Activity Activity: increase activity as tolerated Diet: advance to your usual diet Hospital course: Mr. Hernandez is a 71 year old male with hx of ESRD on HD presented to ED with increased dyspnea and hypertensive urgency resulting in fluid overload. He had not completed his HD session the prior day. Mr. Hernandez was admitted to [facility]. He initially was on bipap but slowly improved. He underwent ultrafiltration with some improvement. Cozaar was added for BP control with improvement as well. On 02/22 he only had 8 minutes of HD here and demanded to stop. He had full HD on 02/23. He had no other acute issues. Due to concern for hypoxemia and need for home oxygen he was tested and did qualify. On 02/24 he was able to be titrated down to 3 liters and arrangements were made for home oxygen. He refused to have HD here but agreed to go to his outpatient site. After oxygen set up he will be transported to his outpatient HD center. At the time of discharge he is alert and oriented. He is afebrile and vitals stable. - Time Spent with Patient Total time spent providing and/or coordinating discharge services: 38min - Constitutional Vitals: Temp Pulse Resp BP Pulse Ox 99.2 F 103 18 124/63 95 02/24/17 06:40 02/24/17 06:40 02/24/17 08:05 02/24/17 06:40 02/24/17 08:05 General appearance: Present: A&O X 3, answers questions appropriately - Head Head exam: Present: normocephalic - Eye Eye exam: Present: EOMI, conjuntiva pink - ENT ENT exam: Present: mucous membranes dry - Respiratory Respiratory exam: Present: decreased breath sounds, CTAB. Absent: rhonchi, wheezes - Cardiovascular Cardiovascular exam: Present: RRR. Absent: tachycardia - GI/Abdominal GI/Abdominal exam: Present: soft. Absent: tenderness - Extremities Exam Extremities exam: Present: warm. Absent: tenderness - Neurological Exam Neurological exam: Present: alert, oriented X3 - Skin Skin exam: Present: warm. Absent: rash
--- NOTE | 2017-02-24 10:59 | Nephrology Progress Note ---
Date of Encounter: 02/24/17 Time of Encounter: 10:40 - Assessment and Plan (1) ESRD on dialysis Current Visit: Yes Status: Chronic Being discharged today to outpatient dialysis center, keeping MWF schedule. Subjective Interval history: Sitting on edge of bed, no new complaints. Being discharged to outpatient dialysis unit to receive HD today. Rediscussed compliance and life choices regarding frequently missed or shortened HD treatments inpatient and outpatient. Offered Palliative Care to discuss if wants to stop HD altogether. Vehemently against stopping HD altogether. Discussed compliance with HD, fluids. Objective - Vital Signs Vital signs: Vital Signs Temp Pulse Resp BP Pulse Ox 02/24/17 08:05 18 95 02/24/17 06:40 99.2 F 103 18 124/63 95 02/24/17 01:15 99.1 F 86 17 114/59 98 02/23/17 21:05 99.9 F H 74 19 116/65 96 02/23/17 20:58 99 02/23/17 20:05 16 95 Intake and Output 02/23/17 02/24/17 02/24/17 23:59 07:59 15:59 Intake Total 240 / 240 240 / 240 Balance 240 / 240 240 / 240 Intake: Oral 240 / 240 240 / 240 Other: Meal Dinner Breakfast Percent of Meal Consumed 100% 100% Stool Consistency loose # Voids 1 # Bowel Movement Diapers 1 Blood Glucose* 110 113 - General Appearance General appearance: Present: well-developed, well-nourished, appears started age , obese EENT: Present: mucous membranes moist Neck: Present: no JVD Respiratory: Present: clear Cardiology: Present: no edema, irregular rhythm Gastrointestinal: Present: normoactive bowel sounds, no tenderness Integumentary: Present: warm and dry Neurologic: Present: alert and oriented x3 Psychiatric: Present: mood/affect appropriate, cooperative - Lab 02/24/17 06:37 02/24/17 06:37 Most recent lab results Calcium 8.7 mg/dL (8.6-10.8) 02/24/17 06:37 Consult Discharge Plan - Plan Instructions: Heart Failure (DC), Acute Respiratory Distress Syndrome (DC) Referrals: Chilo Lewis Jr, MD [Primary Care Provider] - 03/02/17 9:00 am Prescriptions: Losartan [Cozaar] 25 mg PO BID #60 tablet
--- NOTE | 2017-02-24 13:35 | Physician Discharge Referral ---
Home Health/Hosp Referral Info Transfer to: Home Health Provider in Charge Post Discharge: PCP - Diagnosis (1) Acute and chronic respiratory failure with hypoxia Priority: Primary Status: Acute (2) Hypertensive urgency Priority: Primary Status: Acute (3) Volume overload Priority: Primary Status: Acute (4) Atrial fibrillation Priority: Secondary Status: Chronic (5) Anemia Priority: Secondary Status: Acute (6) Tobacco abuse Priority: Secondary Status: Chronic (7) Hypertension Priority: Secondary Status: Acute (8) ESRD on dialysis Priority: Secondary Status: Chronic (9) COPD (chronic obstructive pulmonary disease) Priority: Secondary Status: Chronic (10) Diabetes Priority: Secondary Status: Chronic (11) CAD (coronary artery disease) Priority: Secondary Status: Chronic - Respiratory Orders Oxygen / L per min (3) Smoking Cessation: Smoking cessation has been advised. For more information, call the [employer] Quit Line at [phone]. - Diet/Nutrition Diet/Nutrition Orders: Renal - Activity Activity Orders: Up ad yazmin - Services Needed Following services are medically necessary services: Nursing, Home Health Aide - Transfer Medications Prescriptions: Losartan [Cozaar] 25 mg PO BID #60 tablet Home Medications: Carvedilol [Coreg] 25 mg PO BID 09/08/15 [History] cloNIDine HCl [CloNIDine HCl] 0.1 mg PO QAM 09/08/15 [History] Albuterol Neb [AccuNeb] 1.25 mg IH Q4H PRN 09/21/16 [History] Budesonide/Formoterol 160/4.5 [Symbicort 160/4.5] 2 puff IH BIDR 09/22/16 [ History] Cinacalcet [Sensipar] 30 mg PO DAILY 09/22/16 [History] Omeprazole [PriLOSEC] 20 mg PO DAILY 09/22/16 [History] amLODIPine [Norvasc] 5 mg PO DAILY 09/22/16 [History] Aspirin 81 mg PO DAILY #0 tab.chew 09/28/16 [Rx] Oxycodone HCl 15 mg PO Q6H PRN #20 tablet 02/03/17 [Rx] Lactose-Reduced Food [Boost] 237 ml PO DAILY 02/21/17 [History] Docusate [Colace] 100 mg PO BID PRN #0 capsule 02/24/17 [Rx] Losartan [Cozaar] 25 mg PO BID #60 tablet 02/24/17 [Rx] Allergies/Adverse Reactions: Allergies rofecoxib [From Vioxx] Allergy (Verified 02/21/17 06:52) Swelling of Lip/Tongue/Throat Certification: Further, I certify that my clinical findings support that this patient is homebound (i.e. absences from home require considerable and taxing effort and are for medical reasons or [employer] services or infrequently or short duration when for other reasons) because: Homebound Reason: Patient requires assistance of a person or device to safely leave home, Leaving home requires considerable and taxing effort due to condition, Severity of cardiac or pulmonary status limits activity tolerance Attestation: My signature below is to certify that this patient is under my care and that I, or nurse practitioner, or a physician's special education teaching assistant working with me, has a face-to -face encounter with this patient.
== END 2017-02-24 12:12 | disposition home or self-care (01) | DRG 291 ==
LOC: EMEROO 06:49 → 2ANU 06:49 → SUATTDRO 09:09 → 2ANU 09:45
PROVIDERS: ADMIT Internal Medicine; ATTEND Internal Medicine

== ENCOUNTER 2017-02-24 16:44 | Observation (INO) ==
--- NOTE | 2017-02-24 16:50 | Emergency Department Note ---
Disposition Clinical Impression: Congestive heart failure, Anemia, CAD (coronary artery disease), Elevated troponin level, Tachycardia, ESRD on dialysis, Sepsis, Cerebrovascular disease, Thrombocytopenia, Frail elderly, COPD (chronic obstructive pulmonary disease), Abnormal EKG, History of aortic aneurysm, Hyperbilirubinemia Disposition: Admitted As Inpatient Referrals: Chilo Lewis Jr, MD [Primary Care Provider] - Forms: ED Satisfaction Letter General Adult HPI - General Chief complaint: ED Weakness Stated complaint: " AMS, Lethargic" Time Seen by Provider: 02/24/17 16:46 - History of Present Illness HPI Narrative: 71-year-old male came in by EMS from the dialysis center, there is concern for decreased level of consciousness. Per report the patient was just discharged from the hospital several hours ago and sent to dialysis directly. Per reports dialysis was performed and the patient was somewhat altered so the nurses called EMS and had the patient transferred to the ED. The patient reports he "feels different". He is unable to give specifics. On review of systems the patient describes some shortness of breath and slight back pain and chest pain. The patient has had a slight cough. There is no history of tearing back pain or syncope. There is no history of slurred speech or difficulty moving the arms or legs independently no numbness or weakness on one side of the body or facial drooping. There is no history of headache neck stiffness rash or convulsion. No acute difficulty seeing or speaking reported. The patient has not fallen or injured himself. He denies upper or lower extremity pain abdominal pain vomiting or diarrhea. There is no history of acute bleeding. No seizures. The patient reportedly was in a group home until recently and the plan was to discharge the patient to home. He states he lives with 2 sons and they are aware that he is here. - Related Data Home Medications Medication Instructions Recorded Confirmed RX: Carvedilol [Coreg] 25 mg PO BID 09/08/15 02/24/17 RX: cloNIDine HCl [CloNIDine HCl] 0.1 mg PO QAM 09/08/15 02/24/17 RX: Albuterol Neb [AccuNeb] 1.25 mg IH Q4H PRN 09/21/16 02/24/17 RX: Budesonide/Formoterol 160/4.5 2 puff IH BIDR 09/22/16 02/24/17 [Symbicort 160/4.5] RX: Cinacalcet [Sensipar] 30 mg PO DAILY 09/22/16 02/24/17 RX: Omeprazole [PriLOSEC] 20 mg PO DAILY 09/22/16 02/24/17 RX: amLODIPine [Norvasc] 5 mg PO DAILY 09/22/16 02/24/17 RX: Lactose-Reduced Food [Boost] 237 ml PO DAILY 02/21/17 02/24/17 Previous Rx's Medication Instructions Recorded RX: Aspirin 81 mg PO DAILY #0 tab.chew 09/28/16 RX: Oxycodone HCl 15 mg PO Q6H PRN #20 tablet 02/03/17 RX: Docusate [Colace] 100 mg PO BID PRN #0 capsule 02/24/17 RX: Losartan [Cozaar] 25 mg PO BID #60 tablet 02/24/17 Allergies Allergy/AdvReac Type Severity Reaction Status Date / Time rofecoxib [From Vioxx] Allergy Swelling Verified 02/21/17 06:52 of Lip/Tongue/Throat All systems ED: reviewed and negative except as stated. Past Medical History - Past Medical History Medical history: Reports: aortic aneurysm, diabetes, dialysis, hyperlipidemia, hypertension, myocardial infarction, renal disease, other Surgical history: Reports: angioplasty/stent (x3), cholecystectomy, other (AAA repair, left knee surgery.) Psychiatric history: Reports: anxiety, depression - Social History Smoking Status: Current every day smoker Smokeless Tobacco Status: No Alcohol use: Reports: rarely Drug use: Reports: none Physical Exam - General Limitations: no limitations General appearance: alert, in no apparent distress - Head Head exam: atraumatic, normocephalic, normal inspection - Eye Eye exam: Present: normal appearance, PERRL, EOMI, miosis. Absent: scleral icterus, conjunctival injection, mydriasis - ENT ENT exam: normal exam, normal oropharynx, mucous membranes moist, TM's normal bilaterally, normal external ear exam - Neck Neck exam: Present: normal inspection, full ROM, trachea midline. Absent: tenderness - Chest Chest inspection: Present: symmetric chest wall rise. Absent: tenderness - Respiratory Respiratory exam: Present: prolonged expiratory phase. Absent: normal lung sounds bilaterally, respiratory distress, wheezes, stridor, accessory muscle use - Cardiovascular Cardiovascular exam: Present: normal rhythm, tachycardia - Abdominal Exam Abdominal exam: Present: soft, Non-Tender. Absent: tenderness, distention, guarding, rebound, rigidity - Extremities Exam Extremities exam: Present: normal inspection, full ROM, normal capillary refill. Absent: tenderness, pedal edema, joint swelling, calf tenderness - Expanded Lower Extremity Exam Lower leg exam: Absent: Homans' sign Neurovascular/Tendon exam: Present: normal capillary refill. Absent: motor deficit, sensory deficit, tendon deficit, extremity cold to touch, pallor - Back Exam Back exam: Present: normal inspection, full ROM. Absent: tenderness, CVA tenderness (R), CVA tenderness (L), vertebral tenderness - Neurological Exam Neurological exam: Present: alert, oriented X3, CN II-XII intact. Absent: motor sensory deficit - Psychiatric Psychiatric exam: Present: normal affect, normal mood - Skin Skin exam: Present: warm, dry, intact, normal color. Absent: rash, cyanosis, diaphoresis, erythema, pallor, mottled Course - Reevaluation(s) Reevaluation #1: The patient was monitored here in the emergency department, his CRP is elevated and he is tachycardic and febrile, chest x-ray shows congestive changes, blood cultures were sent, antibiotics of been ordered, gentle rehydration secondary to known CHF and renal failure is indicated versus bolus. Lactic acid is not elevated. Urinalysis pending. The patient appears to be septic, possible bloodstream infection, I do not suspect meningismus, he does not describe a headache, he is neurologically intact, in the ED he is sitting up at the bedside eating crackers and conversant. No nuchal rigidity noted. Vital Signs Temperature 101.0 F H 02/24/17 16:50 Pulse Rate 114 02/24/17 16:50 Respiratory Rate 20 02/24/17 16:50 Blood Pressure 0/0 02/24/17 16:50 O2 Sat by Pulse Oximetry 96 02/24/17 16:50 Temperature 101.0 F H 02/24/17 16:50 Pulse Rate 96 02/24/17 17:55 Respiratory Rate 18 02/24/17 17:55 Blood Pressure 117/60 02/24/17 17:55 O2 Sat by Pulse Oximetry 92 02/24/17 17:55 Oxygen Delivery Oxygen Delivery Nasal Cannula Medical Decision Making - MDM Narrative Medical decision making narrative: The patient is currently comfortable, antibiotics and IV fluids been ordered. Blood cultures were sent. CRP notably elevated, based on clinical examination and history, I do not necessarily suspect meningismus. The patient has a history of aortic aneurysm, he describes dyspnea, tachycardic and febrile, a CTA of the chest was ordered to evaluate for thoracovascular disease and parenchymal disease, CT abdomen and pelvis were also ordered to evaluate for potential intra-abdominal sources of infection and to assess aneurysm, the patient also has hyperbilirubinemia, he does not describe abdominal tenderness or vomiting. Based on the patient's tachycardia, elevated CRP, temperature of 101, and multiple medical comorbidities including dialysis therapy and diabetes , I thought it would be appropriate to admit the patient to the hospital, the patient is likely septic, he may have a blood borne infection. The patient is not lethargic and did not display altered mental status while in the emergency department. Cautious hydration secondary to known CHF and renal failure. Urinalysis is pending. I discussed the case with the hospitalist on-call who has accepted the patient to their care. - Lab Data Lab results reviewed: Yes I reviewed the patient's lab results. Result diagrams: 02/24/17 17:08 02/24/17 17:08 Lab Results 02/24/17 02/24/17 02/24/17 Range/Units 17:08 17:08 17:08 WBC 7.7 (4.3-11.1) K/mcL RBC 3.19 L (4.19-5.50) M/mcL Hgb 8.9 L (12.9-16.9) g/dL Hct 27.8 L (37.5-50.1) % MCV 87.1 (83.0-100.0) fL MCH 27.9 L (28.0-33.3) pg MCHC 32.0 (31.6-35.5) g/dL RDW 17.4 H (11.5-14.5) % Plt Count 104 L (140-400) K/mcL MPV 11.2 (9.4-12.4) fL Immature Gran % 0.8 (0-4) % Seg Neutrophils % 81.1 % Lymphocytes % 7.6 % Monocytes % 9.6 % Eosinophils % 0.8 % Basophils % 0.1 % Neutrophils # 6.2 (1.6-8.9) K/mcL Lymphocytes # 0.6 (0.6-4.6) K/mcL Monocytes # 0.7 (0.0-1.3) K/mcL Eosinophils # 0.1 (0.0-0.6) K/mcL Basophils # 0.0 (0.0-0.2) K/mcL PT (9.4-12.1) Seconds INR APTT (26.0-36.0) Seconds Sodium 136 (136-145) mEq/L Potassium 4.4 D (3.5-4.5) mEq/L Chloride 94 L (98-109) mEq/L Carbon Dioxide 32 H (19-29) mEq/L BUN 28 H D (8-26) mg/dL Creatinine 3.18 H (0.72-1.25) mg/dL Est GFR ( Amer) 23 L (> 60) Est GFR (Non-Af Amer) 19 L (> 60) BUN/Creatinine Ratio 9 (6-26) Glucose 96 (70-99) mg/dL Calculated Osmolality 287 (280-300) Lactic Acid 1.3 (0.5-2.2) mmol/L Calcium 8.8 (8.6-10.8) mg/dL Phosphorus 2.8 (2.3-4.7) mg/dL Magnesium 1.6 (1.6-2.6) mg/dL Total Bilirubin 1.7 H (0.2-1.2) mg/dL AST 22 (5-34) Units/L ALT 17 (0-55) Units/L Alkaline Phosphatase 132 H (38-126) Units/L Troponin I (0-0.03) ng/mL C-Reactive Protein (Less than 5) mg/L Serum Total Protein 8.1 (6.0-8.3) g/dL Albumin 3.1 L (3.5-5.0) g/dL Globulin 5.0 H (2.4-3.5) g/dL Albumin/Globulin Ratio 0.6 L (1.1-2.2) Lipase 57 (8-78) Units/L Salicylates (15-30) mg/dL Acetaminophen (10-30) mcg/mL 02/24/17 02/24/17 02/24/17 Range/Units 17:08 17:08 17:08 WBC (4.3-11.1) K/mcL RBC (4.19-5.50) M/mcL Hgb (12.9-16.9) g/dL Hct (37.5-50.1) % MCV (83.0-100.0) fL MCH (28.0-33.3) pg MCHC (31.6-35.5) g/dL RDW (11.5-14.5) % Plt Count (140-400) K/mcL MPV (9.4-12.4) fL Immature Gran % (0-4) % Seg Neutrophils % % Lymphocytes % % Monocytes % % Eosinophils % % Basophils % % Neutrophils # (1.6-8.9) K/mcL Lymphocytes # (0.6-4.6) K/mcL Monocytes # (0.0-1.3) K/mcL Eosinophils # (0.0-0.6) K/mcL Basophils # (0.0-0.2) K/mcL PT 13.9 H (9.4-12.1) Seconds INR 1.3 APTT 34.9 (26.0-36.0) Seconds Sodium (136-145) mEq/L Potassium (3.5-4.5) mEq/L Chloride (98-109) mEq/L Carbon Dioxide (19-29) mEq/L BUN (8-26) mg/dL Creatinine (0.72-1.25) mg/dL Est GFR ( Amer) (> 60) Est GFR (Non-Af Amer) (> 60) BUN/Creatinine Ratio (6-26) Glucose (70-99) mg/dL Calculated Osmolality (280-300) Lactic Acid (0.5-2.2) mmol/L Calcium (8.6-10.8) mg/dL Phosphorus (2.3-4.7) mg/dL Magnesium (1.6-2.6) mg/dL Total Bilirubin (0.2-1.2) mg/dL AST (5-34) Units/L ALT (0-55) Units/L Alkaline Phosphatase (38-126) Units/L Troponin I 0.04 H* (0-0.03) ng/mL C-Reactive Protein 150 H (Less than 5) mg/L Serum Total Protein (6.0-8.3) g/dL Albumin (3.5-5.0) g/dL Globulin (2.4-3.5) g/dL Albumin/Globulin Ratio (1.1-2.2) Lipase (8-78) Units/L Salicylates < 5.0 L (15-30) mg/dL Acetaminophen < 1.0 L (10-30) mcg/mL - Radiology Data Radiology results reviewed: Yes I reviewed the patient's radiology results.
[2017-02-24 17:15] LABS: Basophils % 0.1 %; Eosinophils # 0.1 K/mcL (0.0-0.6); Eosinophils % 0.8 %; Hematocrit 27.8 % (37.5-50.1); Hemoglobin 8.9 g/dL (12.9-16.9); Immature Granulocytes % 0.8 % (0-4); Lymphocytes # 0.6 K/mcL (0.6-4.6); Lymphocytes % 7.6 %; Mean Corpuscular Hemoglobin 27.9 pg (28.0-33.3); Mean Corpuscular Volume 87.1 fL (83.0-100.0); Mean Platelet Volume 11.2 fL (9.4-12.4); Monocytes # 0.7 K/mcL (0.0-1.3); Monocytes % 9.6 %; Neutrophils # 6.2 K/mcL (1.6-8.9); Platelet Count 104 K/mcL (140-400); Red Blood Count 3.19 M/mcL (4.19-5.50); Red Cell Distribution Width 17.4 % (11.5-14.5); Segmented Neutrophils % 81.1 %
[2017-02-24 17:21] LABS: INR 1.3; Prothrombin Time 13.9 Seconds (9.4-12.1)
[2017-02-24 17:23] LABS: Activated Partial Thrombo Time 34.9 Seconds (26.0-36.0)
[2017-02-24 17:30] LABS: C-Reactive Protein 150 mg/L (Less than 5)
[2017-02-24 17:34] LABS: Albumin 3.1 g/dL (3.5-5.0); Albumin/Globulin Ratio 0.6 (1.1-2.2); Bilirubin,Total 1.7 mg/dL (0.2-1.2); Calcium 8.8 mg/dL (8.6-10.8); Magnesium 1.6 mg/dL (1.6-2.6); Phosphorous 2.8 mg/dL (2.3-4.7); Total Protein 8.1 g/dL (6.0-8.3)
[2017-02-24 17:35] LABS: Potassium 4.4 mEq/L (3.5-4.5)
[2017-02-24] MEDS ORDERED: Vancomycin 1,000 MG in D5% in Water 250 ML IVPB ONE (18:23)
[2017-02-24] MEDS ORDERED: Piperacillin/Tazobactam 2.25 GM in D5% in Water (Mini-Bag+) 100 ML IVPB ONE (18:23)
[2017-02-24 18:35] LABS: Acetaminophen < 1.0 mcg/mL (10-30); Salicylate < 5.0 mg/dL (15-30)
[2017-02-24] MEDS ORDERED: Aspirin 325 MG TABLET PO ONE (18:40)
[2017-02-24] MEDS: 0.9 % Sodium Chloride 1,000 ML IVC SCH (19:06)
[2017-02-24] MEDS ORDERED: Acetaminophen 325 MG TABLET PO PRN (22:26)
[2017-02-24] MEDS ORDERED: Naloxone 0.4 MG/ML INJ IVP PRN (22:26)
[2017-02-24] MEDS ORDERED: D5% in Water 1,000 ML IVC PRN (22:48)
[2017-02-24] MEDS ORDERED: Dextrose Gel 15 GM PO PRN ×2 (22:48)
[2017-02-24] MEDS ORDERED: *HR* Dextrose 50 % in Water (Syg) 50 ML SYRINGE IVP PRN (22:48)
--- NOTE | 2017-02-24 22:48 | Internal Med History&Physical ---
Date of Encounter: 02/24/17 Time of Encounter: 22:45 Assessment and Plan (1) Panniculitis Current visit: Yes Status: Acute CT abdomen and pelvis reported panniculitis (on clinical exam pt is non-tender) . Likely source for sepsis. Emperically treat with IV vancomycin and zosyn. (2) Sepsis Current visit: Yes Status: Acute Likely source is panniculitis. Blood cultures pending. UA requested. Request Echocardiogram to exclude endocarditis. Qualifiers: Sepsis type: sepsis due to unspecified organism Qualified Code(s): A41.9 - Sepsis, unspecified organism (3) ESRD on dialysis Current visit: Yes Status: Chronic Nephrology consultation (4) COPD (chronic obstructive pulmonary disease) Current visit: Yes Status: Chronic Continue bronchodilators Qualifiers: COPD type: unspecified COPD Qualified Code(s): J44.9 - Chronic obstructive pulmonary disease, unspecified (5) Congestive heart failure Current visit: Yes Status: Chronic Continue home medications Qualifiers: Congestive heart failure type: diastolic Congestive heart failure chronicity: chronic Qualified Code(s): I50.32 - Chronic diastolic (congestive ) heart failure (6) Hypertension Current visit: Yes Status: Chronic Continue home medications Qualifiers: Hypertension type: essential hypertension Qualified Code(s): I10 - Essential (primary) hypertension (7) Diabetes mellitus Current visit: Yes Status: Chronic Sliding scale insulin Qualifiers: Diabetes mellitus type: type 2 Diabetes mellitus complication status: with unspecified complications Diabetes mellitus senior care insulin use: without exterminator termite use Qualified Code(s): E11.8 - Type 2 diabetes mellitus with unspecified complications (8) DVT prophylaxis Current visit: Yes Status: Acute Subcutaneous Heparin Internal Medicine - H&P: HPI Chief complaint: Drowsiness Admitted From: Emergency Dept Plans for Post Hospital Care: Home History of present illness: Mr. Hernandez is a 71 year old male With h/o ESRD on hemodialysis, hypertension, coronary artery disease status post [place], history of aortic aneurysm, Afib not on anticoagulation due to history of chikis hemoptysis, DM, CHFpEF (ECHO 08/2016 with LVEF 55% and moderate diastolic dysfunction and pulmonary HTN), COPD. Patient is known to be noncompliant with his medications and hemodialysis. He was discharged from this hospital earlier today, following his admission for hypertensive urgency and acute on chronic respiratory failure. He went to dialysis session, and apparently his friends felt that he is not doing well and was sent to the ER, from the dialysis center. He apparently wanted to drive home from dialysis center but apparently his friends thought that he was very drowsy. He reports feeling tired, which happens to him after dialysis occasionally. He reports cough with whitish expectoration. He denies significant shortness of breath, chest pain, abdominal pain, headache, nausea, vomiting, fever, chills, dysuria, hematuria, change in bowel habits. He was evaluated in the emergency department and was noted to have temperature 101 F, tachycardic and had CRP of 150. ER physician was concerned about sepsis and was given vancomycin and Zosyn. He is admitted to the hospitalist service for further workup and management. Past Med Surg Social Fam HX - Past Medical History Medical history: aortic aneurysm, diabetes, dialysis, hyperlipidemia, hypertension, myocardial infarction, renal disease, other Psychiatric history: anxiety, depression - Past Surgical History Surgical History: angioplasty/stent (x3), cholecystectomy, other (AAA repair, left knee surgery.) - Social History Smoking Status: Current every day smoker Smokeless Tobacco Status: No Alcohol use: rarely Drug use: none - Family History Mother Hx Family Cardiac Disorders: Yes (HTN) Father Adopted: No Living Status: Hx Family Cardiac Disorders: Yes (HTN) Hx Family Respiratory Disorders: No Hx Family Cancer: Yes Hx Family GI Disorders: No Hx Family Endocrine Disorder: No Hx Family Neuromuscular Disorders: No Hx Family Neurologic Disorders: No Hx Family HEENT Disorders: No Hx Family Autoimmune Disorders: No Internal Medicine - H&P: Meds Carvedilol [Coreg] 25 mg PO BID 09/08/15 [History] cloNIDine HCl [CloNIDine HCl] 0.1 mg PO QAM 09/08/15 [History] Albuterol Neb [AccuNeb] 1.25 mg IH Q4H PRN 09/21/16 [History] Budesonide/Formoterol 160/4.5 [Symbicort 160/4.5] 2 puff IH BIDR 09/22/16 [ History] Cinacalcet [Sensipar] 30 mg PO DAILY 09/22/16 [History] Omeprazole [PriLOSEC] 20 mg PO DAILY 09/22/16 [History] amLODIPine [Norvasc] 5 mg PO DAILY 09/22/16 [History] Aspirin 81 mg PO DAILY #0 tab.chew 09/28/16 [Rx] Oxycodone HCl 15 mg PO Q6H PRN #20 tablet 02/03/17 [Rx] Lactose-Reduced Food [Boost] 237 ml PO DAILY 02/21/17 [History] Docusate [Colace] 100 mg PO BID PRN #0 capsule 02/24/17 [Rx] Losartan [Cozaar] 25 mg PO BID #60 tablet 02/24/17 [Rx] Allergies rofecoxib [From Vioxx] Allergy (Verified 02/21/17 06:52) Swelling of Lip/Tongue/Throat All Systems PM: A 10-system review of systems was performed and is negative for pertinent findings except as documented above in the HPI. - Constitutional Vitals: Temp Pulse Resp BP Pulse Ox 98.5 F 93 16 121/70 97 02/24/17 21:38 02/24/17 21:38 02/24/17 21:38 02/24/17 21:38 02/24/17 21:38 Exam: General: Not in acute distress at the time of my evaluation HEENT: Oral mucosa is moist. No scleral icterus Neck: No obvious neck swellings Lungs: Clear to auscultation Cardiac: Regular rate and rhythm. No significant murmurs Abdomen: Soft, non tender. There is some discoloration of skin in the infra- umbilical area, and is non-tender. Bowel sounds present Genitourinary: No clark catheter Neurological: Alert and oriented. No gross localizing deficits Psych: Not aggressive or agitated Extremities: B/L leg edema Skin: No generalized rash Internal Med - H&P Results - Labs CBC & Chem 7: 02/24/17 17:08 02/24/17 17:08 - EKG Data -: EKG Interpreted by Myself EKG shows normal: sinus rhythm Rate: tachycardia - Impressions ITS Impressions Head CT 02/24/17 00:00 IMPRESSION: No acute intracranial abnormality. Chronic small vessel ischemic disease. D/ / 02/24/2017 17:54:00 Andrew Falcon MD / demario Interpreting Provider: Andrew Falcon MD Chest X-Ray 02/24/17 16:46 IMPRESSION: Cardiomegaly with findings suggesting mild congestive heart failure. D/ / Danish Albarran MD / Danish Albarran MD Interpreting Provider: Danish Albarran MD Chest CTA 02/24/17 19:02 IMPRESSION: 1. No evidence of pulmonary embolic disease. Enlarged main pulmonary artery which can be seen with pulmonary hypertension. 2. Findings suggesting interstitial pulmonary edema with patchy ground-glass opacification and interlobular septal thickening. No pleural fluid or focal infiltrate. 3. Cardiomegaly with atherosclerotic changes in the coronary circulation. 4. No acute findings within the abdomen or pelvis. Small amount of free pelvic fluid which may be related to heart failure. 5. Stable infrarenal abdominal aortic aneurysm at 2.9 cm. Follow-up recommendations below. 6. Stable small retroperitoneal and mediastinal nodes, possibly reactive. RECOMMENDATIONS: Managing Abdominal Aortic Aneurysms 2.6-2.9 cm: 5 year follow up. Reference: Mack et al. The care of patients with an abdominal aortic aneurysm: The Society of Vascular Surgery practice guidelines. Journal of Vascular Surgery. Vol 50, Number 85. Joshua et al. Managing Incidental Findings on Abdominal and Pelvic CT and MRI, Part 2: White Paper of the ACR Incidental Findings Committee II on Vascular Findings. J Am Bhavna Radiol 2013;10:789-794 D/ / 02/24/2017 21:34:19 Baron Oneal MD / demario Interpreting Provider: Baron Oneal MD Abdomen/Pelvis CT 02/24/17 19:04
[2017-02-24] MEDS ORDERED: Vancomycin 1,750 MG in D5% in Water 250 ML IVPB SCH (23:00)
[2017-02-24] MEDS ORDERED: *HR* OxyCODONE Immed Rel 15 MG TABLET PO PRN (23:10)
[2017-02-24] MEDS ORDERED: Albuterol Neb 1.25 MG/3 ML VIAL IH PRN (23:10)
[2017-02-24] MEDS: Budesonide/Formoterol 160/4.5 MDI IH SCH (23:37)
[2017-02-25] MEDS ORDERED: Piperacillin/Tazobactam 3.375 GM in D5% in Water (Mini-Bag+) 100 ML IVPB SCH (06:00)
[2017-02-25] MEDS: *HR* Heparin 5,000 UNIT/ML VIAL SQ SCH ×2 (06:32→16:01)
[2017-02-25] MEDS: 0.9 % Sodium Chloride 1,000 ML IVC SCH (06:33)
[2017-02-25 06:51] LABS: Calcium 8.7 mg/dL (8.6-10.8); Magnesium 1.7 mg/dL (1.6-2.6)
[2017-02-25 06:52] LABS: Potassium 5.3 mEq/L (3.5-4.5)
[2017-02-25 06:58] LABS: Basophils % 0.4 %; Eosinophils % 0.6 %; Hematocrit 26.9 % (37.5-50.1); Hemoglobin 8.6 g/dL (12.9-16.9); Immature Granulocytes % 1.3 % (0-4); Lymphocytes # 0.8 K/mcL (0.6-4.6); Lymphocytes % 11.1 %; Mean Corpuscular Hemoglobin 28.2 pg (28.0-33.3); Mean Corpuscular Volume 88.2 fL (83.0-100.0); Mean Platelet Volume 11.7 fL (9.4-12.4); Monocytes % 14.2 %; Platelet Count 105 K/mcL (140-400); Red Blood Count 3.05 M/mcL (4.19-5.50); Red Cell Distribution Width 17.8 % (11.5-14.5); Segmented Neutrophils % 72.4 %
[2017-02-25] MEDS: Insulin LISPRO 300 UNITS/3 ML VIAL SQ SCH ×2 (08:12→12:07)
[2017-02-25] MEDS ORDERED: Lactobacillus 1 EACH CAP.SPRINK PO SCH (09:00)
[2017-02-25] MEDS ORDERED: NON-FORMULARY MEDICATION 1 EACH EACH (Lactose-Reduced Food [Boost] 237 ML) PO SCH (09:00)
[2017-02-25] MEDS ORDERED: amLODIPine 5 MG TABLET PO SCH (09:00)
[2017-02-25] MEDS ORDERED: cloNIDine HCl 0.1 MG TABLET PO SCH (09:00)
[2017-02-25] MEDS ORDERED: Aspirin 81 MG TAB.CHEW PO SCH (09:00)
--- NOTE | 2017-02-25 09:33 | Nephrology Consult Note ---
Date of Encounter: 02/25/17 Time of Encounter: 09:05 Assessment and Plan (1) ESRD on dialysis Current Visit: Yes Status: Chronic Sepsis, blood cultures pending. IV fluids stopped. Will monitor. No urgent need for HD today. History of Present Illness - Reason for Consult end stage renal disease - History of Present Illness Mr. Hernandez is a 71 year old male with ESRD, who dialyzes at [place]. Last dialysis yesterday. Other PMH- CHF, anemia, CAD, COPD. Mr. Hernandez had just been discharged from [place] to the outpatient Dialysis unit where he dialyzed for entire treatment. Dialysis staff noted progressively becoming more somnolent near end of treatment and had EMS transfer back to [place]. Upon arrival had 101.0 temperature. This morning he states he does not remember any events from yesterday or being dialyzed. There has been ongoing concern from Nephrology that patient may be using street drugs or opioids from outside prescriber. Mr. Hernandez denies any use of street drugs or obtaining narcotics elsewhere. No drug screen was obtained in ER. Past Med Surg Social Fam HX - Past Medical History Medical history: aortic aneurysm, diabetes, dialysis, hyperlipidemia, hypertension, myocardial infarction, renal disease, other Psychiatric history: anxiety, depression - Past Surgical History Surgical History: angioplasty/stent (x3), cholecystectomy, other (AAA repair, left knee surgery.) - Social History Smoking Status: Current every day smoker Smokeless Tobacco Status: No Alcohol use: rarely Drug use: none - Family History Mother Hx Family Cardiac Disorders: Yes (HTN) Father Adopted: No Living Status: Hx Family Cardiac Disorders: Yes (HTN) Hx Family Respiratory Disorders: No Hx Family Cancer: Yes Hx Family GI Disorders: No Hx Family Endocrine Disorder: No Hx Family Neuromuscular Disorders: No Hx Family Neurologic Disorders: No Hx Family HEENT Disorders: No Hx Family Autoimmune Disorders: No Medications and Allergies Carvedilol [Coreg] 25 mg PO BID 09/08/15 [History] cloNIDine HCl [CloNIDine HCl] 0.1 mg PO QAM 09/08/15 [History] Albuterol Neb [AccuNeb] 1.25 mg IH Q4H PRN 09/21/16 [History] Budesonide/Formoterol 160/4.5 [Symbicort 160/4.5] 2 puff IH BIDR 09/22/16 [ History] Cinacalcet [Sensipar] 30 mg PO DAILY 09/22/16 [History] Omeprazole [PriLOSEC] 20 mg PO DAILY 09/22/16 [History] amLODIPine [Norvasc] 5 mg PO DAILY 09/22/16 [History] Aspirin 81 mg PO DAILY #0 tab.chew 09/28/16 [Rx] Oxycodone HCl 15 mg PO Q6H PRN #20 tablet 02/03/17 [Rx] Lactose-Reduced Food [Boost] 237 ml PO DAILY 02/21/17 [History] Docusate [Colace] 100 mg PO BID PRN #0 capsule 02/24/17 [Rx] Losartan [Cozaar] 25 mg PO BID #60 tablet 02/24/17 [Rx] Allergies rofecoxib [From Vioxx] Allergy (Verified 02/21/17 06:52) Swelling of Lip/Tongue/Throat Review of Systems All Systems: reviewed and no additional remarkable complaints except as stated Exam - Vital Signs Vital signs: Initial Vital Signs Temp Pulse Resp BP Pulse Ox 101.0 F H 114 20 0/0 96 02/24/17 16:50 02/24/17 16:50 02/24/17 16:50 02/24/17 16:50 02/24/17 16:50 Vital Signs - Last 8 Hours Temp Pulse Resp BP Pulse Ox 02/25/17 08:04 97.9 F 105 18 113/60 98 02/25/17 04:18 98.5 F 111 18 144/79 99 Intake and Output 02/24/17 02/25/17 02/25/17 23:59 07:59 15:59 Intake Total 350 / 350 1000 / 1000 787 / 787 Balance 350 / 350 1000 / 1000 787 / 787 Intake: IV Fluids 350 / 350 1000 / 1000 311 / 311 0.9 % Sodium Chloride 1, 1000 / 1000 311 / 311 000 ML @ 125 mls/hr IVC . Q8H [facility] Rx#:[id number] Zosyn 2.25 GM In Dextrose 100 / 100 5% (Minibag+) 100 ML 100 ML @ 25 mls/hr IVPB ONCE ONE Rx#:[id number] Vancocin 1,000 MG In 250 / 250 Dextrose 5% 250 ML @ 167 mls/hr IVPB ONCE ONE Rx#: [id number] Oral 476 / 476 Other: Meal Breakfast Percent of Meal Consumed 100% Weight 113.1 kg Blood Glucose* 128 112 - General Appearance General appearance: well-developed, well-nourished, appears started age, obese EENT: mucous membranes moist Neck: no JVD, no carotid bruit Respiratory: wheezing Cardiology: edema, irregular rhythm Additional Comments: mild pitting Gastrointestinal: normoactive bowel sounds, no tenderness Integumentary: cool/clammy Neurologic: alert and oriented x3 Psychiatric: mood/affect appropriate, cooperative Results - Lab Results 02/25/17 06:30 02/25/17 06:30 Most recent lab results Calcium 8.7 mg/dL (8.6-10.8) 02/25/17 06:30 Phosphorus 2.8 mg/dL (2.3-4.7) 02/24/17 17:08 Magnesium 1.7 mg/dL (1.6-2.6) 02/25/17 06:30 Consult Discharge Plan - Plan Referrals: Chilo Lewis Jr, MD [Primary Care Provider] -
[2017-02-25] MEDS: Budesonide/Formoterol 160/4.5 MDI IH SCH (10:32)
[2017-02-25 10:57] VITALS: BP 131/65
--- NOTE | 2017-02-25 13:39 | Discharge Summary ---
Date of Encounter: 02/25/17 Time of Encounter: 10:00 - Discharge Diagnosis (1) Sepsis Priority: Primary Status: Suspected Qualifiers: Sepsis type: sepsis due to unspecified organism Qualified Code(s): A41.9 - Sepsis, unspecified organism (2) Diabetes mellitus Priority: Secondary Status: Chronic Qualifiers: Diabetes mellitus type: type 2 Diabetes mellitus complication status: with unspecified complications Diabetes mellitus correction insulin use: without ferry terminal agent use Qualified Code(s): E11.8 - Type 2 diabetes mellitus with unspecified complications (3) Tobacco abuse Priority: Secondary Status: Chronic (4) ESRD on dialysis Priority: Secondary Status: Chronic (5) Atrial fibrillation Priority: Secondary Status: Chronic Qualifiers: Atrial fibrillation type: paroxysmal Qualified Code(s): I48.0 - Paroxysmal atrial fibrillation (6) CAD (coronary artery disease) Priority: Secondary Status: Chronic Qualifiers: Coronary Disease-Associated Artery/Lesion type: [place] artery [place] vs. transplanted heart: [place] heart Associated angina: without angina Qualified Code(s): I25.10 - Atherosclerotic heart disease of [place] coronary artery without angina pectoris (7) Hypertension Priority: Secondary Status: Chronic Qualifiers: Hypertension type: essential hypertension Qualified Code(s): I10 - Essential (primary) hypertension (8) Noncompliance Priority: Secondary Status: Chronic - Discharge Medications Home Medications: Carvedilol [Coreg] 25 mg PO BID 09/08/15 [History] cloNIDine HCl [CloNIDine HCl] 0.1 mg PO QAM 09/08/15 [History] Albuterol Neb [AccuNeb] 1.25 mg IH Q4H PRN 09/21/16 [History] Budesonide/Formoterol 160/4.5 [Symbicort 160/4.5] 2 puff IH BIDR 09/22/16 [ History] Cinacalcet [Sensipar] 30 mg PO DAILY 09/22/16 [History] Omeprazole [PriLOSEC] 20 mg PO DAILY 09/22/16 [History] amLODIPine [Norvasc] 5 mg PO DAILY 09/22/16 [History] Aspirin 81 mg PO DAILY #0 tab.chew 09/28/16 [Rx] Oxycodone HCl 15 mg PO Q6H PRN #20 tablet 02/03/17 [Rx] Lactose-Reduced Food [Boost] 237 ml PO DAILY 02/21/17 [History] Docusate [Colace] 100 mg PO BID PRN #0 capsule 02/24/17 [Rx] Losartan [Cozaar] 25 mg PO BID #60 tablet 02/24/17 [Rx] Allergies/Adverse Reactions: Allergies rofecoxib [From Vioxx] Allergy (Verified 02/21/17 06:52) Swelling of Lip/Tongue/Throat Procedures/tests Complete & Pending: Procedures Performed prior 72 hours Category Date Time Status EV echocardiogram Routine Y 02/25/17 10:00 Completed Date of admission: 02/24/17 20:34 Primary care physician: Chilo Lewis Jr, MD Consults: 02/24/17 22:33 Consult to Nephrology [CONS] Routine Consulting Provider: [facility] Reason for Consult: ESRD on HD Call Completed: No Discharging clinician: Donnie Cobos Anticipated date of discharge: 02/25/17 - Patient Status Disposition: Left Against Medical Advice Condition: Fair Functional capacity at discharge: independent ambulation Overall status at discharge: patient is progressing back to baseline - Discharge Instructions Follow Up With: Chilo Lewis Jr, MD [Primary Care Provider] - - Diet and Activity Activity: increase activity as tolerated Diet: advance to your usual diet Hospital course: Mr. Hernandez is a 71 year old male with long history of noncompliance readmitted last evening due to fever and lethargy. He had been discharged yesterday morning and was taken by ambulance to dialysis center. There he was noted to be very lethargic and ultimately sent to ED again. He had completed full dialysis. In ED he was found to be febrile. Cultures were drawn and he was admitted. Mr. Hernandez was admitted to [facility]. He was given IV Vancomycin after culture done. He did not give any urine for culture or drug screen. He had no further fever. On 02/25 he remained afebrile. He insisted on leaving despite the culture results not known yet. He understood the possible issues including but proceeded to sign out AMA. - Time Spent with Patient Total time spent providing and/or coordinating discharge services:39min - Constitutional Vitals: Temp Pulse Resp BP Pulse Ox 98.3 F 87 20 131/65 97 02/25/17 10:52 02/25/17 10:52 02/25/17 10:52 02/25/17 10:52 02/25/17 10:52 General appearance: Present: A&O X 3, answers questions appropriately - Head Head exam: Present: normocephalic - Eye Eye exam: Present: conjuntiva pink - ENT ENT exam: Present: mucous membranes dry - Respiratory Respiratory exam: Present: decreased breath sounds, CTAB. Absent: rhonchi, wheezes - Cardiovascular Cardiovascular exam: Present: RRR. Absent: tachycardia - GI/Abdominal GI/Abdominal exam: Present: soft. Absent: tenderness - Extremities Exam Extremities exam: Present: pedal edema, warm. Absent: tenderness - Neurological Exam Neurological exam: Present: alert, oriented X3 - Skin Skin exam: Present: warm. Absent: rash
[2017-02-25 18:58] LABS: blaKPC Carbapenem-Resist Gene Not Detected (Not Detect)
[2017-02-25 18:59] LABS: Acinetobacter baumannii by PCR Not Detected (Not Detect); Candida albicans by PCR Not Detected (Not Detect); Candida glabrata by PCR Not Detected (Not Detect); Candida krusei by PCR Not Detected (Not Detect); Candida parapsilosis by PCR Not Detected (Not Detect); Candida tropicalis by PCR Not Detected (Not Detect); Enterococcus by PCR Not Detected (Not Detect); Escherichia coli by PCR Not Detected (Not Detect); Klebsiella oxytoca by PCR Not Detected (Not Detect); Klebsiella pneumoniae by PCR ***DETECTED*** (Not Detect); Pseudomonas aeruginosa by PCR Not Detected (Not Detect); Serratia marcescens by PCR Not Detected (Not Detect); Staphylococcus aureus by PCR Not Detected (Not Detect); Streptococcus agalactiae(B)PCR Not Detected (Not Detect); Streptococcus by PCR Not Detected (Not Detect); Streptococcus pneumoniae PCR Not Detected (Not Detect); Streptococcus pyogenes (A) PCR Not Detected (Not Detect)
--- NOTE | 2017-02-25 19:43 | Event Note ---
Date of Encounter: 02/25/17 Time of Encounter: 19:41 I received a call from house sh[facility] regarding a critical lab value on Mr Hernandez. Blood culture came back positive for gram-negative rods. Patient signed out AMA today. I called the patient on his cell phone at [phone]. I spoke to Mr. Hernandez and I informed him that his blood culture result came back positive. I advised him to come to the emergency department as soon as possible to be admitted for IV antibiotics. He agreed and stated that he will come back to the hospital this evening. I informed the night team about Mr. Hernandez's return to the hospital. The team nurse practitioner called the emergency department to give them notice about this patient. We will admit Mr. Hernandez and resume IV antibiotics. This is not a [id number] encounter.
[2017-02-25] MEDS ORDERED: Insulin LISPRO 300 UNITS/3 ML VIAL SQ SCH (21:00)
== END 2017-02-25 18:02 | disposition left against medical advice (07) ==
LOC: 2ANU 16:44 → EMEROO 16:44 → 2ANU 21:03
PROVIDERS: ADMIT Internal Medicine; ATTEND Internal Medicine

== ENCOUNTER 2017-02-25 20:46 | Inpatient (IN) ==
[~2017-02-25 20:46] MED LIST: Aminoglycoside Consult 1 EACH MC ONE
--- NOTE | 2017-02-25 21:16 | Emergency Department Note ---
Disposition Clinical Impression: Bacteremia, Panniculitis, End stage renal disease Disposition: Admitted As Inpatient Condition: Fair Referrals: Chilo Lewis Jr, MD [Primary Care Provider] - Forms: ED Satisfaction Letter General Adult HPI - General Chief complaint: ED Recheck/Abnormal Lab/Rx Stated complaint: positive blood culture Time Seen by Provider: 02/25/17 20:52 Source: patient Limitations: no limitations Nursing Notes Reviewed: Yes Vital Signs Reviewed: Yes - History of Present Illness HPI Narrative: 71-year-old male who presented to the emergency department yesterday due to decreased level of consciousness during dialysis. At that time he also stated that he felt the front but was unable to quantify. He was found to be febrile and tachycardic with a CRP of 150. Inserting force source a CT scan of the chest and abdomen and pelvis was performed. The chest was negative and the abdomen showed appendix panniculitis. He is not complaining of abdominal pain. He was admitted with a diagnosis of sepsis and panniculitis and blood cultures were drawn. He was empirically on Vanco and Zosyn. Early this morning he left the hospital AMA and at that time he was allowed to leave because he was progressing back to his baseline and his cognition was not impaired. Subsequently his blood culture came back as positive for Klebsiella pneumoniae and the hospitalist service called him back and told him to come to the ER. He currently has no complaints. Radiation: non-radiation Pain Scale: 0 Improves with: nothing Worsens with: nothing Associated symptoms: Reports: denies other symptoms - Related Data Home Medications Medication Instructions Recorded Confirmed Carvedilol [Coreg] 25 mg PO BID 09/08/15 02/24/17 cloNIDine HCl [CloNIDine HCl] 0.1 mg PO QAM 09/08/15 02/24/17 Albuterol Neb [AccuNeb] 1.25 mg IH Q4H PRN 09/21/16 02/24/17 Budesonide/Formoterol 160/4.5 2 puff IH BIDR 09/22/16 02/24/17 [Symbicort 160/4.5] Cinacalcet [Sensipar] 30 mg PO DAILY 09/22/16 02/24/17 Omeprazole [PriLOSEC] 20 mg PO DAILY 09/22/16 02/24/17 amLODIPine [Norvasc] 5 mg PO DAILY 09/22/16 02/24/17 Lactose-Reduced Food [Boost] 237 ml PO DAILY 02/21/17 02/24/17 Previous Rx's Medication Instructions Recorded Aspirin 81 mg PO DAILY #0 tab.chew 09/28/16 Oxycodone HCl 15 mg PO Q6H PRN #20 tablet 02/03/17 Docusate [Colace] 100 mg PO BID PRN #0 capsule 02/24/17 Losartan [Cozaar] 25 mg PO BID #60 tablet 02/24/17 Allergies Allergy/AdvReac Type Severity Reaction Status Date / Time rofecoxib [From Vioxx] Allergy Swelling Verified 02/21/17 06:52 of Lip/Tongue/Throat All systems ED: reviewed and negative except as stated. Constitutional: Reports: fever Cardiovascular: Denies: chest pain Respiratory: Denies: dyspnea, wheezes Gastrointestinal: Denies: abdominal pain, nausea, vomiting, diarrhea Genitourinary: Denies: dysuria Integumentary: Denies: rash Past Medical History - Past Medical History Medical history: Reports: aortic aneurysm, diabetes, dialysis, hyperlipidemia, hypertension, myocardial infarction, renal disease, other Surgical history: Reports: angioplasty/stent (x3), cholecystectomy, other (AAA repair, left knee surgery.) Psychiatric history: Reports: anxiety, depression - Social History Smoking Status: Current every day smoker Smokeless Tobacco Status: No Alcohol use: Reports: rarely Drug use: Reports: none Physical Exam - General Limitations: no limitations General appearance: alert, in no apparent distress - Head Head exam: atraumatic - Eye Eye exam: Present: normal appearance, PERRL - ENT ENT exam: normal exam, normal oropharynx - Neck Neck exam: Present: normal inspection - Chest Chest inspection: Present: normal inspection - Respiratory Respiratory exam: Present: normal lung sounds bilaterally. Absent: respiratory distress - Cardiovascular Cardiovascular exam: Present: regular rate, normal rhythm - Abdominal Exam Abdominal exam: Present: soft, Non-Tender, other (Warmth is present) - Extremities Exam Extremities exam: Present: normal inspection, other (right sided fistula) - Neurological Exam Neurological exam: Present: alert, oriented X3 - Psychiatric Psychiatric exam: Present: normal affect, normal mood - Skin Skin exam: Present: warm, dry Course Course Narrative: On presentation he has mild tachycardia with a heart rate of 105. He states that he feels at his baseline. I spoke with the hospitalist service who requested he come back negative requested that I start Zosyn and have him admitted to their service. I reviewed his lab work and imaging from his hospital admission from this morning. He had a negative echo and a negative CTA of the chest and a CT abdomen showed panniculitis. Blood culture for Klebsiella. This morning his white blood cell count was 7. Vital Signs Temperature 98.5 F 02/25/17 20:47 Pulse Rate 106 02/25/17 20:47 Respiratory Rate 18 02/25/17 20:47 Blood Pressure 115/74 02/25/17 20:47 O2 Sat by Pulse Oximetry 98 02/25/17 20:47 Temperature 98.5 F 02/25/17 20:47 Pulse Rate 106 02/25/17 20:47 Respiratory Rate 18 02/25/17 20:47 Blood Pressure 115/74 02/25/17 20:47 O2 Sat by Pulse Oximetry 98 02/25/17 20:47 Oxygen Delivery Oxygen Delivery Room Air Medical Decision Making - Medical Records Medical records reviewed: Yes I reviewed the patient's medical records. - Lab Data Lab results reviewed: Yes I reviewed the patient's lab results. - EKG Data EKG #1 Interpretation: other (atrial fibrillation with a rate of 97. No significant ST deviation.)
--- NOTE | 2017-02-25 21:35 | Emergency Department Note ---
Disposition Clinical Impression: Bacteremia, Panniculitis, End stage renal disease Disposition: Admitted As Inpatient Condition: Fair Forms: ED Satisfaction Letter General Adult HPI - General Chief complaint: ED Recheck/Abnormal Lab/Rx Stated complaint: positive blood culture Time Seen by Provider: 02/25/17 20:52 Source: patient Limitations: no limitations - History of Present Illness Pain Scale: 0 Improves with: nothing Worsens with: nothing Associated symptoms: Reports: denies other symptoms - Related Data Home Medications Medication Instructions Recorded Confirmed Carvedilol [Coreg] 25 mg PO BID 09/08/15 02/24/17 cloNIDine HCl [CloNIDine HCl] 0.1 mg PO QAM 09/08/15 02/24/17 Albuterol Neb [AccuNeb] 1.25 mg IH Q4H PRN 09/21/16 02/24/17 Budesonide/Formoterol 160/4.5 2 puff IH BIDR 09/22/16 02/24/17 [Symbicort 160/4.5] Cinacalcet [Sensipar] 30 mg PO DAILY 09/22/16 02/24/17 Omeprazole [PriLOSEC] 20 mg PO DAILY 09/22/16 02/24/17 amLODIPine [Norvasc] 5 mg PO DAILY 09/22/16 02/24/17 Lactose-Reduced Food [Boost] 237 ml PO DAILY 02/21/17 02/24/17 Previous Rx's Medication Instructions Recorded Aspirin 81 mg PO DAILY #0 tab.chew 09/28/16 Oxycodone HCl 15 mg PO Q6H PRN #20 tablet 02/03/17 Docusate [Colace] 100 mg PO BID PRN #0 capsule 02/24/17 Losartan [Cozaar] 25 mg PO BID #60 tablet 02/24/17 Allergies Allergy/AdvReac Type Severity Reaction Status Date / Time rofecoxib [From Vioxx] Allergy Swelling Verified 02/21/17 06:52 of Lip/Tongue/Throat Constitutional: Reports: fever Cardiovascular: Denies: chest pain Respiratory: Denies: dyspnea, wheezes Gastrointestinal: Denies: abdominal pain, nausea, vomiting, diarrhea Genitourinary: Denies: dysuria Integumentary: Denies: rash Past Medical History - Past Medical History Medical history: Reports: aortic aneurysm, diabetes, dialysis, hyperlipidemia, hypertension, myocardial infarction, renal disease, other Surgical history: Reports: angioplasty/stent (x3), cholecystectomy, other (AAA repair, left knee surgery.) Psychiatric history: Reports: anxiety, depression - Social History Smoking Status: Current every day smoker Smokeless Tobacco Status: No Alcohol use: Reports: rarely Drug use: Reports: none Physical Exam - General Limitations: no limitations General appearance: alert, in no apparent distress Course - Reevaluation(s) Reevaluation #1: I saw the patient with the resident, Dr. Farah. Patient was called back into this hospital by the hospitalist service because he had positive blood cultures. He was recently seen for panicullitis. Blood cultures from that visit and it up growing out Klebsiella. Patient has multiple medical conditions which put him at risk for positive blood cultures. Even though he looks good here in the department, we have consulted the hospitalist for admission and IV antibiotics. They are here seeing the patient now. Time: 21:34 Vital Signs Temperature 98.5 F 02/25/17 20:47 Pulse Rate 106 02/25/17 20:47 Respiratory Rate 18 02/25/17 20:47 Blood Pressure 115/74 02/25/17 20:47 O2 Sat by Pulse Oximetry 98 02/25/17 20:47 Temperature 98.5 F 02/25/17 20:47 Pulse Rate 106 02/25/17 20:47 Respiratory Rate 18 02/25/17 20:47 Blood Pressure 115/74 02/25/17 20:47 O2 Sat by Pulse Oximetry 98 02/25/17 20:47 Oxygen Delivery Oxygen Delivery Room Air Attestation Statement - Attestation Attestation: I, Dr. Maldonado, examined this patient [id number] and my medical decision- making was reviewed with Dr. Farah, Resident Physician. I agree with the documented findings, disposition and treatment plan as described except to the extent set forth below. Please see my progress notes for details.
[2017-02-25] MEDS ORDERED: Naloxone 0.4 MG/ML INJ IVP PRN (21:49)
[2017-02-25] MEDS ORDERED: *HR* HYDROcodone/Acet 5/325 mg TABLET PO PRN (21:49)
[2017-02-25] MEDS ORDERED: Acetaminophen 325 MG TABLET PO PRN (21:49)
[2017-02-25] MEDS ORDERED: *HR* Morphine 2 MG/ML SYRINGE IVP PRN (21:49)
[2017-02-25] MEDS ORDERED: Ondansetron 4 MG/2 ML VIAL IVP PRN (21:49)
[2017-02-25] MEDS ORDERED: Piperacillin/Tazobactam 3.375 GM in D5% in Water (Mini-Bag+) 100 ML IVPB ONE (22:00)
[2017-02-25 22:19] LABS: Basophils % 0.2 %; Eosinophils # 0.1 K/mcL (0.0-0.6); Eosinophils % 1.2 %; Hematocrit 26.3 % (37.5-50.1); Hemoglobin 8.1 g/dL (12.9-16.9); Immature Granulocytes % 1.1 % (0-4); Lymphocytes # 1.1 K/mcL (0.6-4.6); Lymphocytes % 16.3 %; Mean Corpuscular HGB Conc 30.8 g/dL (31.6-35.5); Mean Corpuscular Hemoglobin 27.2 pg (28.0-33.3); Mean Corpuscular Volume 88.3 fL (83.0-100.0); Mean Platelet Volume 10.3 fL (9.4-12.4); Monocytes # 0.9 K/mcL (0.0-1.3); Monocytes % 13.6 %; Neutrophils # 4.4 K/mcL (1.6-8.9); Platelet Count 106 K/mcL (140-400); Red Blood Count 2.98 M/mcL (4.19-5.50); Red Cell Distribution Width 17.5 % (11.5-14.5); Segmented Neutrophils % 67.6 %
--- NOTE | 2017-02-25 22:20 | Internal Med History&Physical ---
Date of Encounter: 02/25/17 Time of Encounter: 21:30 Assessment and Plan (1) Bacteremia Current visit: Yes Status: Acute Patient presents with Klebsiella bacteremia based on blood cultures taken yesterday prior to patient leaving AMA. New blood cultures ordered for this admission as well as sputum culture. IV Zosyn 3.375 Q12 for renal dosing ordered for infection coverage. (2) Sepsis Current visit: Yes Status: Acute Patient presents with suspected sepsis based on known Klebsiella infection and tachycardia. Stat CBC ordered to assess patient's WBC. Stat lactic acid ordered. Stat blood and sputum cultures ordered. Follow-up labs ordered for a.m. Qualifiers: Sepsis type: sepsis due to unspecified organism Qualified Code(s): A41.9 - Sepsis, unspecified organism (3) Panniculitis Current visit: Yes Status: Acute Patient presents with panniculitis based on previous CT of abdomen/pelvis yesterday prior to patient leaving AMA. Will initiate IV Zosyn 3.375 Q12 for renal dosing for infection coverage. (4) Congestive heart failure Current visit: Yes Status: Chronic Patient presents with history of chronic CHF. Will continue patient's home medications. Patient to be placed on fluid restriction diet of 1.5L daily to prevent fluid overload and address patient's reduced renal function. Qualifiers: Congestive heart failure type: diastolic Congestive heart failure chronicity: acute on chronic Qualified Code(s): I50.33 - Acute on chronic diastolic (congestive) heart failure (5) COPD (chronic obstructive pulmonary disease) Current visit: Yes Status: Chronic Patient presents with history of chronic COPD. Will order DuoNebs Q4 and supplemental O2 with titration if SpO2 <92%, as well as continuous SpO2 monitoring. Qualifiers: COPD type: unspecified COPD Qualified Code(s): J44.9 - Chronic obstructive pulmonary disease, unspecified (6) Diabetes mellitus Current visit: Yes Status: Chronic Patient presents with history of chronic diabetes mellitus. Will order low-dose correction sliding scale insulin, hypoglycemia protocol, and blood glucose monitoring ACHS. Qualifiers: Diabetes mellitus type: type 2 Diabetes mellitus complication status: with unspecified complications Diabetes mellitus cage maker insulin use: without cage maker use Qualified Code(s): E11.8 - Type 2 diabetes mellitus with unspecified complications (7) ESRD on dialysis Current visit: Yes Status: Chronic Patient presents with chronic ESRD on dialysis and is currently followed by Dr. Del Toro. Fluid restriction diet (1.5L daily)/renal diet ordered. Nephrology consult ordered and discussed with Dr. Del Toro. Patient's current dialysis schedule is // and next dialysis is due February 27. (8) Hypertension Current visit: Yes Status: Chronic Patient presents with history of chronic hypertension. Will continue patient's Coreg, Cozaar, and Norvasc. Monitor patient and vital signs. Qualifiers: Hypertension type: essential hypertension Qualified Code(s): I10 - Essential (primary) hypertension (9) Hyperlipidemia Current visit: Yes Status: Chronic Patient presents with history of chronic hyperlipidemia. Lipid panel ordered. Qualifiers: Hyperlipidemia type: pure hypercholesterolemia Qualified Code(s): E78.00 - Pure hypercholesterolemia, unspecified; E78.0 - Pure hypercholesterolemia (10) DVT prophylaxis Current visit: Yes Status: Acute Patient to be placed on DVT prophylaxis due to admission protocol and current status. Heparin 5,000 units SQ Q8 ordered. Internal Medicine - H&P: HPI Chief complaint: Drowsiness/Not feeling well Admitted From: Emergency Dept Plans for Post Hospital Care: Home History of present illness: Mr. Hernandez is a 71 year old male who was previously admitted to the hospital yesterday but left AMA today. After the patient left, microbiology notified the admitting hospitalist that the patient was positive for Klebsiella infection. The patient was notified and told to come back to the hospital ED where he would be admitted due to this infection. Mr. Hernandez did return to the ED where he was seen and admitted. The patient denies any recent illness, fever, chills, nausea, vomiting, chest pain, or generalized weakness. Patient has a history of aortic aneurysm, diabetes, HLD, HTN, NH, and end-stage renal disease requiring dialysis. He reports he is currently an everyday smoker smoking 1 1/2 PPD. Upon admission to the ED, the patient was found to be tachycardic with a HR of 109. A CBC was ordered stat to assess the patient's WBC status. Patient is at high risk for sepsis due to his current infection and will be admitted as inpatient with orders for stat sputum and blood cultures, stat lactic acid, IV Zosyn 3.375 Q12 for infection coverage and renal dosing, supplemental O2, DuoNebs Q4, CXR, EKG, and nephrology consult with Dr. Del Toro who follows this patient ( patient is due for dialysis on Monday, February 3. Patient will be placed on fluid restriction diet of 1.5L daily and will be monitored closely for signs of increased infection or further morbidity. Time spent with patient >30 minutes. Past Med Surg Social Fam HX - Past Medical History Source: patient Medical history: aortic aneurysm, diabetes, dialysis, hyperlipidemia, hypertension, myocardial infarction, renal disease, other Psychiatric history: anxiety, depression - Past Surgical History Surgical History: angioplasty/stent (x3), cholecystectomy, other (AAA repair, left knee surgery.) - Social History Smoking Status: Current every day smoker Packs per day: 1 08/29 PPD Smokeless Tobacco Status: No Alcohol use: rarely Drug use: none Current living situation: Home Activity Level: Independent ambulation Recent Out of Country Travel Within the Last 8 Weeks: No Exposure or Possible Exposure to Illness During Travel: No - Family History Mother Hx Family Cardiac Disorders: Yes (HTN) Father Adopted: No Living Status: Hx Family Cardiac Disorders: Yes (HTN) Hx Family Respiratory Disorders: No Hx Family Cancer: Yes Hx Family GI Disorders: No Hx Family Endocrine Disorder: No Hx Family Neuromuscular Disorders: No Hx Family Neurologic Disorders: No Hx Family HEENT Disorders: No Hx Family Autoimmune Disorders: No Internal Medicine - H&P: Meds Carvedilol [Coreg] 25 mg PO BID 09/08/15 [History] cloNIDine HCl [CloNIDine HCl] 0.1 mg PO QAM 09/08/15 [History] Albuterol Neb [AccuNeb] 1.25 mg IH Q4H PRN 09/21/16 [History] Budesonide/Formoterol 160/4.5 [Symbicort 160/4.5] 2 puff IH BIDR 09/22/16 [ History] Cinacalcet [Sensipar] 30 mg PO DAILY 09/22/16 [History] Omeprazole [PriLOSEC] 20 mg PO DAILY 09/22/16 [History] amLODIPine [Norvasc] 5 mg PO DAILY 09/22/16 [History] Aspirin 81 mg PO DAILY #0 tab.chew 09/28/16 [Rx] Oxycodone HCl 15 mg PO Q6H PRN #20 tablet 02/03/17 [Rx] Lactose-Reduced Food [Boost] 237 ml PO DAILY 02/21/17 [History] Docusate [Colace] 100 mg PO BID PRN #0 capsule 02/24/17 [Rx] Losartan [Cozaar] 25 mg PO BID #60 tablet 02/24/17 [Rx] Allergies rofecoxib [From Vioxx] Allergy (Verified 02/21/17 06:52) Swelling of Lip/Tongue/Throat All Systems PM: A 10-system review of systems was performed and is negative for pertinent findings except as documented above in the HPI. - Constitutional Constitutional: no chills, no fever(s), no night sweats - EENT Eyes: no change in vision, no discharge, no pain, no photophobia Ears: no ear discharge, no ear pain, no tinnitus Nose, mouth and throat: no dysphagia, no nasal discharge, no neck pain, no sore throat - Breasts Breasts: as per HPI - Cardiovascular Cardiovascular ROS IM: as per HPI, irregular heart rhythm (Tachycardia HR of 109 ) - Respiratory Respiratory: as per HPI, cough, dyspnea, dyspnea on exertion, wheezing, chest congestion, excessive phlegm production - Gastrointestinal Gastrointestinal: no abdominal pain, no diarrhea, no hematemesis, no hematochezia, no melena, no nausea, no vomiting - Genitourinary Genitourinary ROS male: as per HPI - Musculoskeletal Musculoskeletal ROS IM: no numbness, no tingling - Integumentary Integumentary IM: other (Skin nodules), no rash, no unusual bruising - Neurological Neurological ROS: no confusion, no convulsions, no focal weakness, no numbness, no tingling, no tremor(s) - Psychiatric Psychiatric: as per HPI - Endocrine Endocrine IM: as per HPI - Hematologic/Lymphatic Hematologic/Lymphatic: no easy bruising - Allergic/Immunologic Allergic/Immunologic: as per HPI - Constitutional Vitals: Temp Pulse Resp BP Pulse Ox 98.5 F 106 18 115/74 98 02/25/17 20:47 02/25/17 20:47 02/25/17 20:47 02/25/17 20:47 02/25/17 20:47 General appearance: Present: cooperative, mild distress, A&O X 3, obese, answers questions appropriately - Head Head exam: Present: atraumatic, normocephalic - Eye Eye exam: Present: PERRL, conjuntiva pink, sclera anicteric Pupils: Present: PERRL - ENT ENT exam: Present: normal exam, normal external ear exam - Neck Neck exam general surgery: Present: normal inspection, supple, trachea midline. Absent: lymphadenopathy - Respiratory Respiratory exam: Present: wheezes (Bilaterally in all lobes, but more pronounced on left) - Cardiovascular Cardiovascular exam: Present: tachycardia - GI/Abdominal GI/Abdominal exam: Present: normal bowel sounds, soft, no peritoneal signs. Absent: distended, tenderness - Rectal Rectal exam: Present: deferred - Additional comments: exam deferred. - Extremities Exam Extremities exam: Present: warm, radial pulses palpable and symetrical. Absent : calf tenderness, cyanotic, pedal edema - Back Exam Back exam: Present: normal inspection - Neurological Exam Neurological exam: Present: CN II-XII intact, oriented X3, no focal deficits. Absent: pronater drift, facial droop, speech deficit - Psychiatric Psychiatric exam: Present: normal affect, normal mood - Skin Skin exam: Present: dry, intact Internal Med - H&P Results - Labs CBC & Chem 7: 02/25/17 22:12 - EKG Data Rate: tachycardia - EKG Data Prior EKG available for review: yes When compared to previous EKG: there are significant changes EKG comments: 02/25/17 22:26 EKG dated 02/21/17 shows sinus tachycardia and left anterior fascicular block, abnormal QRS-T angle. EKG dated 02/25/17 shows atrial flutter/tachycardia, left anterior fascicular block.
[2017-02-25] MEDS ORDERED: *HR* Dextrose 50 % in Water (Syg) 50 ML SYRINGE IVP PRN (22:44)
[2017-02-25] MEDS ORDERED: D5% in Water 1,000 ML IVC PRN (22:44)
[2017-02-25] MEDS ORDERED: Dextrose Gel 15 GM PO PRN ×2 (22:44)
[2017-02-25 23:05] LABS: Hemoglobin A1C 5.1 %
[2017-02-25] MEDS: Ipratropium/Albuterol Neb 3 ML IH SCH (23:21)
[2017-02-25] MEDS: *HR* Heparin 5,000 UNIT/ML VIAL SQ SCH (23:51)
[2017-02-26] MEDS: Ipratropium/Albuterol Neb 3 ML IH SCH ×5 (03:43→19:46)
[2017-02-26 04:40] LABS: INR 1.2; Prothrombin Time 13.1 Seconds (9.4-12.1)
[2017-02-26 04:41] LABS: Basophils % 0.2 %; Eosinophils # 0.1 K/mcL (0.0-0.6); Eosinophils % 1.1 %; Hematocrit 24.7 % (37.5-50.1); Hemoglobin 7.9 g/dL (12.9-16.9); Immature Granulocytes % 0.8 % (0-4); Lymphocytes % 15.8 %; Mean Corpuscular Hemoglobin 28.1 pg (28.0-33.3); Mean Corpuscular Volume 87.9 fL (83.0-100.0); Monocytes # 0.9 K/mcL (0.0-1.3); Monocytes % 14.1 %; Neutrophils # 4.4 K/mcL (1.6-8.9); Platelet Count 106 K/mcL (140-400); Red Blood Count 2.81 M/mcL (4.19-5.50); Red Cell Distribution Width 17.3 % (11.5-14.5)
[2017-02-26 04:43] LABS: Activated Partial Thrombo Time 30.9 Seconds (26.0-36.0)
[2017-02-26 04:54] LABS: Calcium 8.4 mg/dL (8.6-10.8); Chol/HDL Ratio 3.1 (0-4.9); Potassium 5.6 mEq/L (3.5-4.5)
[2017-02-26] MEDS: *HR* Heparin 5,000 UNIT/ML VIAL SQ SCH ×3 (06:00→20:53)
[2017-02-26] MEDS: Pantoprazole 40 MG VIAL IVP SCH (07:44)
[2017-02-26] MEDS: Budesonide/Formoterol 160/4.5 MDI IH SCH ×2 (07:50→19:48)
[2017-02-26] MEDS: Insulin LISPRO 300 UNITS/3 ML VIAL SQ SCH ×4 (08:33→20:31)
[2017-02-26] MEDS: Aspirin 81 MG TAB.CHEW PO SCH (08:41)
[2017-02-26] MEDS: amLODIPine 5 MG TABLET PO SCH (08:41)
[2017-02-26] MEDS: cloNIDine HCl 0.1 MG TABLET PO SCH (08:41)
--- NOTE | 2017-02-26 09:52 | Nephrology Consult Note ---
Date of Encounter: 02/26/17 Time of Encounter: 09:10 Assessment and Plan (1) ESRD on dialysis Current Visit: Yes Status: Chronic Appendix Panniculitis. Positive blood cultures; Klebsiella Pneumonaie, on Zosyn. Afebrile. No HD today, tomorrow keeping [facility] schedule. History of Present Illness - Reason for Consult end stage renal disease - History of Present Illness Mr. Hernandez is a 71 year old male with ESRD who dialyzes at [facility], last dialysis Monday. Mr. Hernandez was transferred from outpatient dialysis following Monday treatment for somnolence, Temp 101.0. CT abdomen showed appendix panniculitis. Blood cultures were pending, on empiric Zosyn and Vanco. Mr. Hernandez signed out AMA yesterday and was notified he should present self to [facility] due to posotive blood cultures of Klebsiella Pneumoniae. Today, his laying in bed, arouses fairly easy, denies discomfort, no new complaints. Past Med Surg Social Fam HX - Past Medical History Medical history: aortic aneurysm, diabetes, dialysis, hyperlipidemia, hypertension, myocardial infarction, renal disease, other Psychiatric history: anxiety, depression - Past Surgical History Surgical History: angioplasty/stent, cholecystectomy, other - Social History Smoking Status: Current every day smoker Packs per day: 1 1/2 PPD Smokeless Tobacco Status: No Alcohol use: rarely Drug use: none - Family History Mother History Unknown: Yes Hx Family Cardiac Disorders: Yes (HTN) Father History Unknown: Yes Adopted: No Living Status: Hx Family Cardiac Disorders: Yes (HTN) Hx Family Respiratory Disorders: No Hx Family Cancer: Yes Hx Family GI Disorders: No Hx Family Endocrine Disorder: No Hx Family Neuromuscular Disorders: No Hx Family Neurologic Disorders: No Hx Family HEENT Disorders: No Hx Family Autoimmune Disorders: No Medications and Allergies Carvedilol [Coreg] 25 mg PO BID 09/08/15 [History] cloNIDine HCl [CloNIDine HCl] 0.1 mg PO QAM 09/08/15 [History] Albuterol Neb [AccuNeb] 1.25 mg IH Q4H PRN 09/21/16 [History] Budesonide/Formoterol 160/4.5 [Symbicort 160/4.5] 2 puff IH BIDR 09/22/16 [ History] Cinacalcet [Sensipar] 30 mg PO DAILY 09/22/16 [History] Omeprazole [PriLOSEC] 20 mg PO DAILY 09/22/16 [History] amLODIPine [Norvasc] 5 mg PO DAILY 09/22/16 [History] Aspirin 81 mg PO DAILY #0 tab.chew 09/28/16 [Rx] Oxycodone HCl 15 mg PO Q6H PRN #20 tablet 02/03/17 [Rx] Lactose-Reduced Food [Boost] 237 ml PO DAILY 02/21/17 [History] Docusate [Colace] 100 mg PO BID PRN #0 capsule 02/24/17 [Rx] Losartan [Cozaar] 25 mg PO BID #60 tablet 02/24/17 [Rx] Allergies rofecoxib [From Vioxx] Allergy (Verified 02/21/17 06:52) Swelling of Lip/Tongue/Throat Review of Systems All Systems: reviewed and no additional remarkable complaints except as stated Exam - Vital Signs Vital signs: Initial Vital Signs Temp Pulse Resp BP Pulse Ox 98.5 F 106 18 115/74 98 02/25/17 20:47 02/25/17 20:47 02/25/17 20:47 02/25/17 20:47 02/25/17 20:47 Vital Signs - Last 8 Hours Temp Pulse Resp BP Pulse Ox 02/26/17 08:00 98 02/26/17 07:46 98.5 F 109 18 121/74 98 02/26/17 03:44 20 95 02/26/17 02:51 97.8 F 86 18 126/82 96 Intake and Output 02/25/17 02/26/17 02/26/17 23:59 07:59 15:59 Intake Total 100 / 100 Balance 100 / 100 Intake: IV Fluids 100 / 100 Zosyn 3.375 GM In 100 / 100 Dextrose 5% (Minibag+) 100 ML 100 ML @ 25 mls/hr IVPB ONCE ONE Rx#: [id number] Other: Weight 107.7 kg Blood Glucose* 97 Patient Weight 02/26/17 23:59 Weight 107.7 kg - General Appearance General appearance: well-developed, well-nourished, appears started age, obese EENT: mucous membranes moist Neck: no JVD, no carotid bruit Respiratory: clear Cardiology: no edema, regular rate, regular rhythm Gastrointestinal: normoactive bowel sounds, no tenderness Integumentary: warm and dry Psychiatric: mood/affect appropriate, cooperative Results - Lab Results 02/26/17 04:28 02/26/17 04:28 Most recent lab results Calcium 8.4 mg/dL (8.6-10.8) L 02/26/17 04:28 Consult Discharge Plan - Plan Referrals: Chilo Lewis Jr, MD [Primary Care Provider] -
[2017-02-26] MEDS: Piperacillin/Tazobactam 3.375 GM in D5% in Water (Mini-Bag+) 100 ML IVPB SCH ×2 (10:54→23:10)
[2017-02-26] MEDS ORDERED: Haloperidol Lactate 5 MG/ML VIAL IVP PRN (11:25)
[2017-02-26] MEDS ORDERED: Haloperidol Lactate 5 MG/ML VIAL IM PRN (11:26)
--- NOTE | 2017-02-26 15:16 | Internal Med Progress Note ---
Date of Encounter: 02/26/17 Time of Encounter: 08:15 - Assessment and plan (1) Acute metabolic encephalopathy Current Visit: Yes Status: Acute Assessment and plan: Supportive care. PRN meds. Sitter ordered. Pt is not able to make decision to leave the hospital at this time. He is not competent at this time. (2) Sepsis due to Klebsiella Current Visit: Yes Status: Acute Assessment and plan: Currently on IV Zosyn dosed renally. Will repeat blood cx in AM. ID consult. Further results from culture pending. (3) Klebsiella infection Current Visit: Yes Status: Acute Assessment and plan: IV Zosyn. (4) Bacteremia due to Klebsiella pneumoniae Current Visit: Yes Status: Acute (5) Diabetes Current Visit: Yes Status: Chronic Assessment and plan: Continue current medications and coverage. Qualifiers: Diabetes mellitus type: type 2 Diabetes mellitus complication status: with kidney complications Diabetes mellitus complication detail: with other kidney complication Diabetes mellitus halfway insulin use: without halfway use Qualified Code(s): E11.29 - Type 2 diabetes mellitus with other diabetic kidney complication (6) Hyperlipidemia Current Visit: Yes Status: Chronic Assessment and plan: Continue home meds. Qualifiers: Hyperlipidemia type: pure hypercholesterolemia Qualified Code(s): E78.00 - Pure hypercholesterolemia, unspecified; E78.0 - Pure hypercholesterolemia (7) Hypertension Current Visit: No Status: Chronic Assessment and plan: Controlled at this point. Continue current treatment. Qualifiers: Hypertension type: essential hypertension Qualified Code(s): I10 - Essential (primary) hypertension (8) End stage renal disease Current Visit: Yes Status: Acute Assessment and plan: Per renal service (9) Tobacco abuse Current Visit: No Status: Chronic (10) COPD (chronic obstructive pulmonary disease) Current Visit: Yes Status: Chronic Qualifiers: COPD type: unspecified COPD Qualified Code(s): J44.9 - Chronic obstructive pulmonary disease, unspecified (11) Anemia of renal disease Current Visit: Yes Status: Acute Assessment and plan: Monitor while in hospital. - Subjective Interval history: Mr. Hernandez is currently admitted for acute bacteremia - presumptive Klebsiella. He is high risk due to potential for worsening infectious status. Mr. Hernandez left AMA yesterday. He had been admitted for febrile episode and cultures were pending but he insisted on leaving. Shortly after he left his blood culture was positive for presumptive Klebsiella and he was called to come back in. Currently he just completed breakfast. He has pulled out his IV many times and has not been cooperative. He is pleasant with me and says he understands the current situation with his blood culture and the plan at this time. No fever or chills. No diarrhea. Denies pain. - Constitutional Vitals: Temp Pulse Resp BP Pulse Ox 97.9 F 88 19 100/53 91 02/26/17 12:01 02/26/17 12:01 02/26/17 12:01 02/26/17 12:01 02/26/17 12:01 General appearance: Present: cooperative, A&O X 3, obese, answers questions appropriately - Head Head exam: Present: normocephalic - Eye Eye exam: Present: EOMI, conjuntiva pink - ENT ENT exam: Present: mucous membranes dry - Respiratory Respiratory exam: Present: decreased breath sounds, rales. Absent: rhonchi, wheezes Additional comments: Scattered bibasilar rales. - Cardiovascular Cardiovascular exam: Present: RRR. Absent: tachycardia - GI/Abdominal GI/Abdominal exam: Present: soft. Absent: tenderness - Extremities Exam Extremities exam: Present: pedal edema, warm. Absent: tenderness Additional comments: Edema noted throughout - Neurological Exam Neurological exam: Present: alert, oriented X3 - Skin Skin exam: Present: warm. Absent: rash Internal Medicine: Result - Labs CBC & Chem 7: 02/26/17 04:28 02/26/17 04:28 Labs: Short CBC 02/26/17 Range/Units 04:28 WBC 6.4 (4.3-11.1) K/mcL Hgb 7.9 L (12.9-16.9) g/dL Hct 24.7 L (37.5-50.1) % Plt Count 106 L (140-400) K/mcL Neutrophils # 4.4 (1.6-8.9) K/mcL BMP 02/26/17 04:28 Sodium 135 L Potassium 5.6 H Chloride 95 L Carbon Dioxide 27 BUN 71 H D Creatinine 5.79 H Glucose 99 Calcium 8.4 L - ABG Interpretation ABG results: PT/INR, D-dimer PT 13.1 Seconds (9.4-12.1) H 02/26/17 04:28 Consult Discharge Plan - Plan Referrals: Chilo Lewis Jr, MD [Primary Care Provider] - (Possible back to [facility] ?)
[2017-02-27] MEDS: Ipratropium/Albuterol Neb 3 ML IH SCH ×7 (03:53→23:52)
[2017-02-27 04:50] LABS: Hematocrit 25.2 % (37.5-50.1); Hemoglobin 7.9 g/dL (12.9-16.9); Mean Corpuscular HGB Conc 31.3 g/dL (31.6-35.5); Mean Corpuscular Hemoglobin 27.5 pg (28.0-33.3); Mean Corpuscular Volume 87.8 fL (83.0-100.0); Mean Platelet Volume 10.4 fL (9.4-12.4); Platelet Count 107 K/mcL (140-400); Red Blood Count 2.87 M/mcL (4.19-5.50); Red Cell Distribution Width 17.1 % (11.5-14.5)
[2017-02-27 05:05] LABS: Calcium 8.1 mg/dL (8.6-10.8); Potassium 5.9 mEq/L (3.5-4.5)
[2017-02-27] MEDS: *HR* Heparin 5,000 UNIT/ML VIAL SQ SCH ×3 (05:50→22:14)
[2017-02-27] MEDS: Pantoprazole 40 MG VIAL IVP SCH (05:51)
[2017-02-27] MEDS: Insulin LISPRO 300 UNITS/3 ML VIAL SQ SCH ×4 (07:33→22:15)
[2017-02-27] MEDS: Budesonide/Formoterol 160/4.5 MDI IH SCH ×2 (07:42→19:50)
[2017-02-27] MEDS ORDERED: 0.9 % Sodium Chloride 250 ML IVC PRN (08:21)
--- NOTE | 2017-02-27 08:21 | Nephrology Progress Note ---
Date of Encounter: 02/27/17 Time of Encounter: 08:19 - Assessment and Plan (1) ESRD on dialysis Current Visit: Yes Status: Chronic The patient will undergo dialysis today. He remains on IV antibiotics for Klebsiella bacteremia. Source is unclear. (2) Atrial fibrillation Current Visit: No Status: Chronic Qualifiers: Atrial fibrillation type: paroxysmal Qualified Code(s): I48.0 - Paroxysmal atrial fibrillation (3) Sepsis due to Klebsiella Current Visit: Yes Status: Acute Subjective Interval history: The patient is alert. He is confused. He has required a sitter in his room. Vital signs are stable. He is scheduled for his usual dialysis today. Objective - Vital Signs Vital signs: Vital Signs Temp Pulse Resp BP Pulse Ox 02/27/17 07:42 18 92 02/27/17 07:08 97.6 F 104 18 118/71 92 02/27/17 04:17 16 98 02/27/17 04:16 98.1 F 103 18 133/64 02/26/17 22:48 98.4 F 87 19 125/72 97 02/26/17 19:49 14 98 02/26/17 19:08 98.7 F 84 20 125/71 98 02/26/17 16:31 16 97 02/26/17 15:50 98.3 F 85 17 107/58 97 02/26/17 12:01 97.9 F 88 19 100/53 91 Intake and Output 02/26/17 02/27/17 02/27/17 23:59 07:59 15:59 Intake Total 360 / 360 340 / 340 Balance 360 / 360 340 / 340 Intake: IV Fluids 100 / 100 Zosyn 3.375 GM In 100 / 100 Dextrose 5% (Minibag+) 100 ML 100 ML @ 25 mls/hr IVPB Q12H [facility] Rx#: [id number] Oral 360 / 360 240 / 240 Other: Meal Dinner Percent of Meal Consumed 50% Weight 112.1 kg Blood Glucose* 107 117 Patient Weight 02/27/17 23:59 Weight 112.1 kg - General Appearance Exam: The patient is alert but confused. He is in no acute distress. Vital signs are stable. Lungs diminished breath sounds. Heart regular rate and rhythm. Abdomen is obese. There is mild lower extremity swelling. There is a functioning AV fistula in the left upper extremity. - Lab 02/27/17 04:22 02/27/17 04:22 Most recent lab results Calcium 8.1 mg/dL (8.6-10.8) L 02/27/17 04:22 Magnesium 2.0 mg/dL (1.6-2.6) 02/27/17 04:22 Consult Discharge Plan - Plan Referrals: Chilo Lewis Jr, MD [Primary Care Provider] - (Possible back to [facility] ?)
[2017-02-27] MEDS ORDERED: Darbepoetin 100 MCG/0.5 ML SYRINGE SQ SCH (08:30)
[2017-02-27] MEDS: amLODIPine 5 MG TABLET PO SCH (08:33)
[2017-02-27] MEDS: Aspirin 81 MG TAB.CHEW PO SCH (08:33)
[2017-02-27] MEDS: cloNIDine HCl 0.1 MG TABLET PO SCH (08:33)
--- NOTE | 2017-02-27 12:10 | Electrocardiograph Report ---
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
[2017-02-27] MEDS: Piperacillin/Tazobactam 3.375 GM in D5% in Water (Mini-Bag+) 100 ML IVPB SCH ×2 (12:15→22:17)
--- NOTE | 2017-02-27 12:59 | Electrocardiograph Report ---
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
[2017-02-27] MEDS ORDERED: 0.9 % Sodium Chloride 1,000 ML ONE (13:24)
[2017-02-27] MEDS ORDERED: Vicks Vaporub Oint 50 GM PACKAGE TP PRN (14:36)
[2017-02-27] MEDS ORDERED: *HR* HYDROcodone/Acet 5/325 mg TABLET PO PRN (14:43)
[2017-02-27] MEDS ORDERED: *HR* FentaNYL (PF) 100 MCG/2 ML VIAL ONE (16:38)
--- NOTE | 2017-02-27 16:44 | Event Note ---
<AlvaradoDarryl Edvladislav - Last Filed: 02/27/17 17:01> Date of Encounter: 02/27/17 Time of Encounter: 16:42 This is a 71 y.o. male with pmh of ESRD, HFpEF, DM, CAD who had recently been admitted to [facility] with Sepsis. The patient however reportedly left AMA. He was recalled to the ER when blood cultures were positive for Klebsiella Pneumonia. He was readmitted on 02/25/17 Today he went to dialysis and stayed for all but approximately 50 minutes. Patient became unresponsive and staff nuclear weapons officer was unable to get a pulse. CPR was started at 1604. Rapid response called at 1605. Patient was initially in Asystole. He received 3 amps of epinephrine and CPR. ROSC at 1617 with sinus bradycardia. He was also intubated and received and amp of sodium bicarbonate and an amp of calcium chloride during the code. Patient was transported to the ICU and case was discussed with ICU attending by Dr. Cobos. <Donnie Cobos - Last Filed: 02/27/17 18:44> Date of Encounter: 02/27/17 I examined this patient and my medical decision-making was reviewed with the Resident Physician on 02/27/17. I agree with the documented findings, disposition and treatment plan as described except to the extent set forth below. Above reviewed and agree. Pt with unresponsive episode. Found to be apneic and pulseless. Sitter at bedside so no downtime. CPR begun. Intubated by respiratory. Had ROSC after 3 epi, CPR, calcium chloride and bicarb. Remains unresponsive Lungs with wheeze Taken to ICU in critical condition. CCM 38min
[2017-02-27] MEDS ORDERED: *HR* FentaNYL (PF) 100 MCG/2 ML VIAL IVP ONE (16:46)
--- NOTE | 2017-02-27 17:06 | Infectious Disease Consult ---
Date of Encounter: 02/27/17 Time of Encounter: 17:05 Assessment and Plan (1) Acute respiratory failure Status: Acute Assessment and plan: Patient went into arrhythmia then asystole earlier requiring the patient to be coded and protection of his airways. Likely secondary to interstitial lung disease and now concern for possible aspiration pneumonia. Discussed with the pulmonary critical care team, we'll repeat chest x-ray. Patient with the on Zosyn for positive culture with Klebsiella pneumoniae in the blood on 02/24/2017 Qualifiers: Respiratory failure complication: hypoxia Qualified Code(s): J96.01 - Acute respiratory failure with hypoxia (2) Panniculitis Status: Acute Assessment and plan: Seen on the CT abdomen and pelvis on 02/24/17. Patient currently on Zosyn. If continues to get worse consider adding vancomycin. (3) End stage renal disease Status: Acute (4) Bacteremia due to Klebsiella pneumoniae Status: Acute Assessment and plan: Blood culture 1 out of 2 sets positive for Klebsiella pneumoniae on 02/24/2017: At that time patient signed out AMA. Patient came back to the hospital and had only one set of blood cultures obtained and so far no growth. Not sure if it was a true infection versus a contaminant versus other. We'll continue Zosyn for now until cultures finalize Consider repeating blood cultures 2. Dose adjust Zosyn based on creatinine clearance patient is on hemodialysis. We'll ask pharmacy to help with the dosing. Infectious Disease HPI - Data of Consult Patient: new to practice Consult date: 02/27/17 Requesting Physician: Donnie Cobos DO Primary Care Provider: Chilo Lewis Jr, MD - Consult Narrative Reason for consult: bacteremia History of present illness: Mr. Hernandez is a 71 year old male \ Patient is 71-year-old gentleman admitted to [facility] on February 25, 2017 for drowsiness and not feeling well, we are consulted on 02/27/2017 for bacteremia and sepsis Patient is 71-year-old gentleman who was apparently came to the emergency department and was admitted on 02/21/17 with hypertensive urgency and congestive heart failure. Patient was stabilized and discharged on 02/24/17. On 02/24/2017 patient was feeling drowsy and came to the ED and was admitted with panniculitis. Patient was started empirically on IV vancomycin and Zosyn. Blood culture was obtained at that time and grew Klebsiella pneumoniae that was resistant to Bactrim and Unasyn. Patient decided to sign out AGAINST MEDICAL ADVICE. Patient came back on February 25, 2017 with drowsiness fatigue and altered mental status. Since admission patient has been afebrile, tachycardic with a heart rate in the 100s, presenting WBC of 6.5 with slight thrombocytopenia, a chest x-ray was obtained and shows stable cardiomegaly with no acute cardiopulmonary process identified. Blood culture was obtained on 02/25/2017 only one set was no growth. Sputum culture was also obtained and was no growth. Patient was started on Zosyn empirically and we were asked to evaluate the patient and make further recommendations. Today patient coded into asystole and was transferred to the ICU. Patient was intubated. CC: Donnie Cobos, DO Past Med Surg Social Fam HX - Past Medical History Medical history: aortic aneurysm, diabetes, dialysis, hyperlipidemia, hypertension, myocardial infarction, renal disease, other Psychiatric history: anxiety, depression - Past Surgical History Surgical History: angioplasty/stent, cholecystectomy, other - Social History Smoking Status: Current every day smoker Packs per day: 1 /2 PPD Smokeless Tobacco Status: No Alcohol use: rarely Drug use: none - Family History Mother History Unknown: Yes Hx Family Cardiac Disorders: Yes (HTN) Father History Unknown: Yes Adopted: No Living Status: Hx Family Cardiac Disorders: Yes (HTN) Hx Family Respiratory Disorders: No Hx Family Cancer: Yes Hx Family GI Disorders: No Hx Family Endocrine Disorder: No Hx Family Neuromuscular Disorders: No Hx Family Neurologic Disorders: No Hx Family HEENT Disorders: No Hx Family Autoimmune Disorders: No Infectious Disease-CN:Meds Carvedilol [Coreg] 25 mg PO BID 09/08/15 [History] cloNIDine HCl [CloNIDine HCl] 0.1 mg PO QAM 09/08/15 [History] Albuterol Neb [AccuNeb] 1.25 mg IH Q4H PRN 09/21/16 [History] Budesonide/Formoterol 160/4.5 [Symbicort 160/4.5] 2 puff IH BIDR 09/22/16 [ History] Cinacalcet [Sensipar] 30 mg PO DAILY 09/22/16 [History] Omeprazole [PriLOSEC] 20 mg PO DAILY 09/22/16 [History] amLODIPine [Norvasc] 5 mg PO DAILY 09/22/16 [History] Aspirin 81 mg PO DAILY #0 tab.chew 09/28/16 [Rx] Oxycodone HCl 15 mg PO Q6H PRN #20 tablet 02/03/17 [Rx] Lactose-Reduced Food [Boost] 237 ml PO DAILY 02/21/17 [History] Docusate [Colace] 100 mg PO BID PRN #0 capsule 02/24/17 [Rx] Losartan [Cozaar] 25 mg PO BID #60 tablet 02/24/17 [Rx] Allergies iodine Allergy (Verified 02/26/17 11:13) Rash rofecoxib [From Vioxx] Allergy (Verified 02/21/17 06:52) Swelling of Lip/Tongue/Throat Review of systems: Unable to obtain because patient is intubated Exam - Constitutional Vitals: Temp Pulse Resp BP Pulse Ox 97.0 F L 67 18 142/100 100 02/27/17 13:03 02/27/17 16:50 02/27/17 16:50 02/27/17 16:50 02/27/17 16:50 Exam: Sedated, intubated - Head Head exam: Present: atraumatic, normocephalic - Eye Eye exam: Present: EOMI, PERRL, sclera anicteric - ENT Additional comments: Endotracheal tube intact, trachea midline, no stridor - Neck Neck exam: Present: full ROM, normal inspection - Respiratory Additional comments: Chest expanding symmetrically, decreased breath sounds universally, diffuse rhonchi and wheezing. - Cardiovascular Cardiovascular exam: Present: RRR, +S1, +S2 - GI/Abdominal GI/Abdominal exam: Present: hypoactive bowel sounds, soft. Absent: tenderness - Extremities Exam Extremities exam: Present: normal inspection. Absent: pedal edema - Neurological Exam Additional comments: Unable to assess, patient is intubated. - Skin Skin exam: Absent: rash, vesicles Infectious Disease CN: Results - Labs CBC & Chem 7: 03/02/17 04:08 03/02/17 04:08 Consult Discharge Plan - Plan Referrals: Chilo Lewis Jr, MD [Primary Care Provider] - (Possible back to [facility] ?)
[2017-02-27 17:11] LABS: ABG Base Excess -2.1 mEq/L (-2.0 to 3.0); ABG HCO3 27.2 mEQ/L (21-27); ABG Oxygen Saturation 100 % (95-98); ABG PO2 236 mmHg (85-104); ABG TCO2 29.6 mEq/L (20-26)
[2017-02-27 17:14] LABS: ABG PCO2 78 mmHg (35-45); ABG PH 7.15 pH Units (7.32-7.45); Blood Gas FiO2 80 %
[2017-02-27] MEDS ORDERED: Vancomycin 1,000 MG in D5% in Water 250 ML IVPB ONE (17:45)
--- NOTE | 2017-02-27 17:53 | Pulmonology Consult Note ---
<Alicia Jones - Last Filed: 02/27/17 18:58> Date of Encounter: 02/27/17 Time of Encounter: 17:50 Assessment and Plan (1) Cardiopulmonary arrest Current Visit: No Status: Resolved Patient sustained a cardiac arrest in the hospital. Patient received dialysis today. He is being seen here for a Klebsiella positive blood culture. After dialysis he had an episode where he became dyspneic, had altered level consciousness, and then went into a full reactive rest Patient received epinephrine, calcium chloride, sodium bicarbonate. He was intubated. He was then moved to the ICU. He had a left arterial line placed. A right femoral central line placed. Plan: Therapeutic hypothermia Continue Levofed Consult with nephrology. (2) Dialysis patient Current Visit: No Status: Acute Patient is a chronic dialysis patient. He is hyperkalemic, as well as anemic. Plan: Consult nephro. (3) End-stage renal disease Current Visit: No Status: Chronic Plan as above (4) Bacteremia due to Klebsiella pneumoniae Current Visit: Yes Status: Acute Patient had one blood culture that was positive. Plan: Zosyn Vancomycin (5) Acute respiratory failure Current Visit: Yes Status: Acute Status post cardiac arrest. Plan: Patient intubated on the ventilator. Qualifiers: Qualified Code(s): J96.00 - Acute respiratory failure, unspecified whether with hypoxia or hypercapnia History of Present Illness Consult date: 02/27/17 Requesting physician: Donnie Cobos Reason for consult: other (cardiac arrest) Chief complaint: Postcardiac arrest History of present illness: Male patient well known to this facility who is a dialysis patient presents to [facility] after having positive blood cultures. He is being treated for this. He received dialysis today. After he got back to his room he was noted to be dyspneic. He then had an altered level of consciousness. This progressed to a full cardiac arrest. ACLS protocol was used he was given several rounds of epinephrine and CPR was performed he also received calcium chloride, and sodium bicarbonate. He was intubated. The patient had a spontaneous return of pulses. He was then moved to the ICU. We placed a right femoral line. Also place a left arterial line in his left radius. Placed him on Levofed due to hypotension. And we began to start therapeutic hypothermia. Basic labs were drawn including a troponin lactate. A repeat chest x-ray and KUB were ordered. An OG was placed. We will continue to monitor the patient overnight and increase his vasopressors. We will contact nephrology due to patient's hemoglobin being low as well as potassium being high. Past Med Surg Social Fam HX - Past Medical History Medical history: aortic aneurysm, diabetes, dialysis, hyperlipidemia, hypertension, myocardial infarction, renal disease, other Psychiatric history: anxiety, depression - Past Surgical History Surgical History: angioplasty/stent, cholecystectomy, other - Social History Smoking Status: Current every day smoker Packs per day: 1 08/29 PPD Smokeless Tobacco Status: No Alcohol use: rarely Drug use: none - Family History Mother History Unknown: Yes Hx Family Cardiac Disorders: Yes (HTN) Father History Unknown: Yes Adopted: No Living Status: Hx Family Cardiac Disorders: Yes (HTN) Hx Family Respiratory Disorders: No Hx Family Cancer: Yes Hx Family GI Disorders: No Hx Family Endocrine Disorder: No Hx Family Neuromuscular Disorders: No Hx Family Neurologic Disorders: No Hx Family HEENT Disorders: No Hx Family Autoimmune Disorders: No Medications and Allergies Carvedilol [Coreg] 25 mg PO BID 09/08/15 [History] cloNIDine HCl [CloNIDine HCl] 0.1 mg PO QAM 09/08/15 [History] Albuterol Neb [AccuNeb] 1.25 mg IH Q4H PRN 09/21/16 [History] Budesonide/Formoterol 160/4.5 [Symbicort 160/4.5] 2 puff IH BIDR 09/22/16 [ History] Cinacalcet [Sensipar] 30 mg PO DAILY 09/22/16 [History] Omeprazole [PriLOSEC] 20 mg PO DAILY 09/22/16 [History] amLODIPine [Norvasc] 5 mg PO DAILY 09/22/16 [History] Aspirin 81 mg PO DAILY #0 tab.chew 09/28/16 [Rx] Oxycodone HCl 15 mg PO Q6H PRN #20 tablet 02/03/17 [Rx] Lactose-Reduced Food [Boost] 237 ml PO DAILY 02/21/17 [History] Docusate [Colace] 100 mg PO BID PRN #0 capsule 02/24/17 [Rx] Losartan [Cozaar] 25 mg PO BID #60 tablet 02/24/17 [Rx] Allergies iodine Allergy (Verified 02/26/17 11:13) Rash rofecoxib [From Vioxx] Allergy (Verified 02/21/17 06:52) Swelling of Lip/Tongue/Throat ROS unobtainable: due to endotracheal tube All Systems: A 10-system review of systems was performed and is negative for pertinent findings except as documented above in the HPI. Physical Examination General appearance: comatose, other (Intubated) Eyes: nonicteric ENT: oropharynx moist Mallampati (class): 2 Neck: supple Effort: other (Patient on ventilator) Inspection: normal Auscultation: bilateral: clear Cardiovascular: regular rate and rhythm Gastrointestinal: normoactive bowel sounds, non-distended Integumentary: normal Extremities: no cyanosis Musculoskeletal: no deformities unable to assess due to mental status (Patient unresponsive and intubated) Results - Laboratory Findings CBC and BMP: 02/27/17 17:40 02/27/17 17:40 ABG ABG pH 7.15 pH Units (7.32-7.45) L* 02/27/17 16:15 ABG pCO2 78 mmHg (35-45) H* 02/27/17 16:15 ABG pO2 236 mmHg (85-104) H 02/27/17 16:15 ABG O2 Saturation 100 % (95-98) H 02/27/17 16:15 PT/INR, D-dimer PT 13.1 Seconds (9.4-12.1) H 02/26/17 04:28 Abnormal lab findings: Abnormal lab results RBC 2.87 M/mcL (4.19-5.50) L 02/27/17 04:22 Hgb 7.9 g/dL (12.9-16.9) L 02/27/17 04:22 Hct 25.2 % (37.5-50.1) L 02/27/17 04:22 MCH 27.5 pg (28.0-33.3) L 02/27/17 04:22 MCHC 31.3 g/dL (31.6-35.5) L 02/27/17 04:22 RDW 17.1 % (11.5-14.5) H 02/27/17 04:22 Plt Count 107 K/mcL (140-400) L 02/27/17 04:22 PT 13.1 Seconds (9.4-12.1) H 02/26/17 04:28 ABG pH 7.15 pH Units (7.32-7.45) L* 02/27/17 16:15 ABG pCO2 78 mmHg (35-45) H* 02/27/17 16:15 ABG pO2 236 mmHg (85-104) H 02/27/17 16:15 ABG HCO3 27.2 mEQ/L (21-27) H 02/27/17 16:15 ABG Total CO2 29.6 mEq/L (20-26) H 02/27/17 16:15 ABG O2 Saturation 100 % (95-98) H 02/27/17 16:15 ABG Base Excess -2.1 mEq/L (-2.0 to 3.0) L 02/27/17 16:15 Sodium 135 mEq/L (136-145) L 02/27/17 04:22 Potassium 5.9 mEq/L (3.5-4.5) H 02/27/17 04:22 Chloride 94 mEq/L (98-109) L 02/27/17 04:22 BUN 97 mg/dL (8-26) H D 02/27/17 04:22 Creatinine 6.97 mg/dL (0.72-1.25) H 02/27/17 04:22 Est GFR ( Amer) 9 (> 60) L 02/27/17 04:22 Est GFR (Non-Af Amer) 8 (> 60) L 02/27/17 04:22 Glucose 105 mg/dL (70-99) H 02/27/17 04:22 POC Glucose 107 (58-89) H 02/26/17 20:19 Calculated Osmolality 310 (280-300) H 02/27/17 04:22 Calcium 8.1 mg/dL (8.6-10.8) L 02/27/17 04:22 Iron 43 mcg/dL (65-175) L 02/27/17 04:22 Transferrin 134 mg/dL (174-364) L 02/27/17 04:22 Ferritin 3147 ng/ml (22-275) H 02/27/17 04:22 Triglycerides 158 mg/dL (< 150) H 02/26/17 04:28 VLDL Cholesterol, Calc 32 mg/dL (< 31) H 02/26/17 04:28 - Diagnostic Findings Chest x-ray: image reviewed Pulmonary Procedures - Arterial Line Time out performed: Yes Size (Gauge): 20 Technique used: guide wire technique Post-Procedure: line sutured into place, line taped into place Patient tolerated procedure: well Complications: none Site: left, right - Central Line Placement Right Femoral Time out performed: Yes Patient placed on monitor/pulse ox: Yes prep: mask, gown, gloves Central line prep: Chlorhexidine scrub Ultrasound used for placement: Yes Central line lumen inserted: triple Post procedure: sutured in place, good blood return, all ports aspirated, flushed, capped, sterile dressing applied Patient tolerated procedure: well Complications: none Additional comments: Femoral central line was placed by Alicia Jones D.O. supervised by Dr. Swartz. The right IJ was initially cannulated however resistance was met after passing the guidewire. The guidewire was removed there was still good blood return from the needle however it appears as if there may have been calcifications distal to the puncture site the wire was attempted to be passed again again with resistance met. This was aborted and the line was then placed in the right femoral vein with no outpatient. There was minimal bleeding to the right neck area. Consult Discharge Plan - Plan Referrals: Chilo Lewis Jr, MD [Primary Care Provider] - (Possible back to [facility] ?) <Tico Swartz W - Last Filed: 02/27/17 20:20> Date of Encounter: 02/27/17 All Systems: A 10-system review of systems was performed and is negative for pertinent findings except as documented above in the HPI. Results - Laboratory Findings CBC and BMP: 02/27/17 17:40 02/27/17 17:40 ABG ABG pH 7.15 pH Units (7.32-7.45) L* 02/27/17 16:15 ABG pCO2 78 mmHg (35-45) H* 02/27/17 16:15 ABG pO2 236 mmHg (85-104) H 02/27/17 16:15 ABG O2 Saturation 100 % (95-98) H 02/27/17 16:15 PT/INR, D-dimer PT 13.7 Seconds (9.4-12.1) H 02/27/17 17:40 Abnormal lab findings: Abnormal lab results RBC 2.46 M/mcL (4.19-5.50) L 02/27/17 17:40 Hgb 6.8 g/dL (12.9-16.9) L 02/27/17 17:40 Hct 21.5 % (37.5-50.1) L 02/27/17 17:40 MCH 27.6 pg (28.0-33.3) L 02/27/17 17:40 RDW 17.2 % (11.5-14.5) H 02/27/17 17:40 Plt Count 99 K/mcL (140-400) L 02/27/17 17:40 Lymphocytes # 0.3 K/mcL (0.6-4.6) L 02/27/17 17:40 PT 13.7 Seconds (9.4-12.1) H 02/27/17 17:40 ABG pH 7.15 pH Units (7.32-7.45) L* 02/27/17 16:15 ABG pCO2 78 mmHg (35-45) H* 02/27/17 16:15 ABG pO2 236 mmHg (85-104) H 02/27/17 16:15 ABG HCO3 27.2 mEQ/L (21-27) H 02/27/17 16:15 ABG Total CO2 29.6 mEq/L (20-26) H 02/27/17 16:15 ABG O2 Saturation 100 % (95-98) H 02/27/17 16:15 ABG Base Excess -2.1 mEq/L (-2.0 to 3.0) L 02/27/17 16:15 Sodium 135 mEq/L (136-145) L 02/27/17 17:40 Potassium 6.4 mEq/L (3.5-4.5) H 02/27/17 17:40 Chloride 95 mEq/L (98-109) L 02/27/17 17:40 BUN 73 mg/dL (8-26) H 02/27/17 17:40 Creatinine 5.86 mg/dL (0.72-1.25) H 02/27/17 17:40 Est GFR ( Amer) 12 (> 60) L 02/27/17 17:40 Est GFR (Non-Af Amer) 10 (> 60) L 02/27/17 17:40 Glucose 126 mg/dL (70-99) H 02/27/17 17:40 POC Glucose 107 (58-89) H 02/26/17 20:19 Calculated Osmolality 303 (280-300) H 02/27/17 17:40 Calcium 8.0 mg/dL (8.6-10.8) L 02/27/17 17:40 Iron 43 mcg/dL (65-175) L 02/27/17 04:22 Transferrin 134 mg/dL (174-364) L 02/27/17 04:22 Ferritin 3147 ng/ml (22-275) H 02/27/17 04:22 AST 42 Units/L (5-34) H 02/27/17 17:40 Troponin I 0.05 ng/mL (0-0.03) H* 02/27/17 17:40 Albumin 2.6 g/dL (3.5-5.0) L 02/27/17 17:40 Globulin 4.2 g/dL (2.4-3.5) H 02/27/17 17:40 Albumin/Globulin Ratio 0.6 (1.1-2.2) L 02/27/17 17:40 Triglycerides 158 mg/dL (< 150) H 02/26/17 04:28 VLDL Cholesterol, Calc 32 mg/dL (< 31) H 02/26/17 04:28 - Attending Attestation I examined this patient and my medical decision-making was reviewed with the FAMILY PSYCHOLOGIST/PA/Advanced Practice Nurse/Resident Physician. I agree with the documented findings, disposition and treatment plan as described except to the extent set forth below. I spent 35 min of Critical Care time with this patient. It involved decision making of high complexity to assess, manipulate, and support vital organ system failure and/or to prevent further life threatening deterioration of the patient' s condition. The time involved in the performance of separately reportable procedures was not counted toward critical care time. Patient seen and examined at bedside Labs, radiology, chart personally reviewed. All lines examined without evidence of infection. Neuropsych: s/p Cardiac arrest; unable to follow commands-comatose without sedation. PERRL, Head CT pending. Start Hypothermia Protocol Pulm: Acute respiratory failure s/t intubation, CXR without acute process. ABG c /w ineffective MV RR increased to increase MV while preserving 6- 8cc/Kg IBW TV. ; consideration of PE in differential however arrest better explained by alternative diagnosis such as arrhythmia s/t electrolyte abnormality, possible cardiac ischemia, Patient has a Iodine allergy and risk/benefit of CTPE favors monitoring empiric full anticoagulation not given because of drop in H/H. Minimal FIo2 support at present. Cards: Acute cardiac arrest of unclear etiology (asytole). Troponin slightly elevated but ESRD and post arrest will trend. MAP goal >60 obtained at present without need for vasopressor although MAP steadily decreasing after ROSC and suspect need for Vasopressor soon. ECHO in AM or urgently if trop continues to rise. ECG without STEMI. Lactate pending FEN-GI: NPO for now, Gi prophylaxis given Renal: ESRD s/p Dialysis. Hyperkalemia Nephrology notified consider repeat [place]; Insulin IV with dextrose given for hyperkalemia. ID: ABx given for recent concern of klebsiella bacteremia. Repeat cultures will be obtain, 1 dose Vancomycine for MRSA also given. Heme/Onc: Mechanical DVT prophylaxis for now with acute drop in H/H although no over s/s of hemorrhage. Plts stable Endo: Glucose monitored Integ/MSK: Skin care per routine ICU protocol CODE: Full I updated the patient's daughter and son at bedside.
[2017-02-27 17:58] LABS: Eosinophils # 0.1 K/mcL (0.0-0.6); Eosinophils % 0.7 %; Hematocrit 21.5 % (37.5-50.1); Hemoglobin 6.8 g/dL (12.9-16.9); Immature Granulocytes % 2.4 % (0-4); Lymphocytes # 0.3 K/mcL (0.6-4.6); Lymphocytes % 4.2 %; Mean Corpuscular HGB Conc 31.6 g/dL (31.6-35.5); Mean Corpuscular Hemoglobin 27.6 pg (28.0-33.3); Mean Corpuscular Volume 87.4 fL (83.0-100.0); Mean Platelet Volume 10.9 fL (9.4-12.4); Monocytes # 0.2 K/mcL (0.0-1.3); Monocytes % 3.4 %; Neutrophils # 6.3 K/mcL (1.6-8.9); Red Blood Count 2.46 M/mcL (4.19-5.50); Red Cell Distribution Width 17.2 % (11.5-14.5); Segmented Neutrophils % 89.3 %
[2017-02-27 17:59] LABS: Platelet Count 99 K/mcL (140-400)
[2017-02-27 18:06] LABS: INR 1.3; Prothrombin Time 13.7 Seconds (9.4-12.1)
[2017-02-27 18:12] LABS: Albumin 2.6 g/dL (3.5-5.0); Albumin/Globulin Ratio 0.6 (1.1-2.2); Bilirubin,Total 1.1 mg/dL (0.2-1.2); Globulin 4.2 g/dL (2.4-3.5); Potassium 6.4 mEq/L (3.5-4.5); Total Protein 6.8 g/dL (6.0-8.3)
[2017-02-27] MEDS ORDERED: Insulin Human Regular 10 UNIT in 0.9 % Sodium Chloride 10 ML IV ONE (18:31)
--- NOTE | 2017-02-27 18:39 | Internal Med Progress Note ---
Date of Encounter: 02/27/17 Time of Encounter: 12:30 - Assessment and plan (1) Acute metabolic encephalopathy Current Visit: Yes Status: Acute Assessment and plan: Will continue sitter at this time. Hold meds if possible. Hopefully will improve as clinically improves. (2) Sepsis due to Klebsiella Current Visit: Yes Status: Acute Assessment and plan: Repeat blood cx neg thus far. On IV Zosyn. ID to see. (3) Klebsiella infection Current Visit: Yes Status: Acute Assessment and plan: IV Zosyn. (4) Bacteremia due to Klebsiella pneumoniae Current Visit: Yes Status: Acute (5) Diabetes Current Visit: Yes Status: Chronic Assessment and plan: Continue current medications and coverage. Qualifiers: Qualified Code(s): E11.29 - Type 2 diabetes mellitus with other diabetic kidney complication (6) Hyperlipidemia Current Visit: Yes Status: Chronic Assessment and plan: Continue home meds. Qualifiers: Qualified Code(s): E78.00 - Pure hypercholesterolemia, unspecified; E78.0 - Pure hypercholesterolemia (7) Hypertension Current Visit: No Status: Chronic Assessment and plan: Controlled at this point. Continue current treatment. Qualifiers: Qualified Code(s): I10 - Essential (primary) hypertension (8) End stage renal disease Current Visit: Yes Status: Acute Assessment and plan: Per renal service (9) Tobacco abuse Current Visit: No Status: Chronic (10) COPD (chronic obstructive pulmonary disease) Current Visit: Yes Status: Chronic Qualifiers: Qualified Code(s): J44.9 - Chronic obstructive pulmonary disease, unspecified (11) Anemia of renal disease Current Visit: Yes Status: Acute Assessment and plan: Monitor while in hospital. - Subjective Interval history: Mr. Hernandez is currently admitted for acute bacteremia - Klebsiella. He is high risk due to potential for worsening infectious status. Mr. Hernandez just returned from dialysis. He wants Vicks for his nose and says it is congested. Denies pain at this time but really not answering my questions much. - Constitutional Vitals: Temp Pulse Resp BP Pulse Ox 97.0 F L 67 18 142/100 100 02/27/17 13:03 02/27/17 16:50 02/27/17 16:50 02/27/17 16:50 02/27/17 16:50 General appearance: Present: A&O X 3, obese, answers questions appropriately - Head Head exam: Present: normocephalic - Eye Eye exam: Present: conjuntiva pink - ENT ENT exam: Present: mucous membranes dry - Respiratory Respiratory exam: Present: decreased breath sounds, prolonged expiratory phase, wheezes - Cardiovascular Cardiovascular exam: Present: distant heart sounds, RRR - GI/Abdominal GI/Abdominal exam: Present: distended, soft. Absent: tenderness - Extremities Exam Extremities exam: Present: warm. Absent: tenderness - Neurological Exam Neurological exam: Present: alert, no focal deficits - Skin Skin exam: Present: warm. Absent: rash Internal Medicine: Result - Labs CBC & Chem 7: 02/27/17 17:40 02/27/17 17:40 Labs: Short CBC 02/27/17 Range/Units 17:40 WBC 7.0 (4.3-11.1) K/mcL Hgb 6.8 L (12.9-16.9) g/dL Hct 21.5 L (37.5-50.1) % Plt Count 99 L (140-400) K/mcL Neutrophils # 6.3 (1.6-8.9) K/mcL BMP 02/27/17 17:40 Sodium 135 L Potassium 6.4 H Chloride 95 L Carbon Dioxide 28 BUN 73 H Creatinine 5.86 H Glucose 126 H Calcium 8.0 L Cardiac Enzymes 02/27/17 Range/Units 17:40 Troponin I 0.05 H* (0-0.03) ng/mL Liver Function 02/27/17 Range/Units 17:40 Total Bilirubin 1.1 (0.2-1.2) mg/dL AST 42 H (5-34) Units/L ALT 23 (0-55) Units/L Alkaline Phosphatase 122 (38-126) Units/L Albumin 2.6 L (3.5-5.0) g/dL - ABG Interpretation ABG results: ABG ABG pH 7.15 pH Units (7.32-7.45) L* 02/27/17 16:15 ABG pCO2 78 mmHg (35-45) H* 02/27/17 16:15 ABG pO2 236 mmHg (85-104) H 02/27/17 16:15 ABG O2 Saturation 100 % (95-98) H 02/27/17 16:15 PT/INR, D-dimer PT 13.7 Seconds (9.4-12.1) H 02/27/17 17:40 - Impressions Impressions Chest X-Ray 02/27/17 17:42 IMPRESSION: 1. Endotracheal tube in satisfactory position. 2. NG tube is visualized but its tip is not seen. 3. Stable cardiomegaly. D/ / 02/27/2017 18:06:36 Franklyn Hinojosa MD / earnold Interpreting Provider: Franklyn Hinojosa MD KUB X-Ray 02/27/17 17:42 IMPRESSION: NG tube in satisfactory position. D/ / Jean Claude Gayle MD / Jean Claude Gayle MD Interpreting Provider: Jean Claude Gayle MD Procedures: Internal Med - Arterial Line Size (Gauge): 20 Consult Discharge Plan - Plan Referrals: Chilo Lewis Jr, MD [Primary Care Provider] - (Possible back to [facility] ?)
[2017-02-27 19:05] LABS: ABG Base Excess 1.9 mEq/L (-2.0 to 3.0); ABG HCO3 29.6 mEQ/L (21-27); ABG Oxygen Saturation 100 % (95-98); ABG PCO2 66 mmHg (35-45); ABG PH 7.26 pH Units (7.32-7.45); ABG PO2 224 mmHg (85-104); ABG TCO2 31.6 mEq/L (20-26)
[2017-02-27 19:06] LABS: Blood Gas FiO2 80 %
[2017-02-27] MEDS: *HR* Dextrose 50 % in Water (Syg) 50 ML SYRINGE IVP ONE ×2 (19:39→19:40)
[2017-02-27] MEDS: 0.9 % Sodium Chloride 1,000 ML IVC SCH (19:58)
[2017-02-27] MEDS ORDERED: FentaNYL (PF) 1,000 MCG in 0.9 % Sodium Chloride 80 ML IVC SCH (20:30)
[2017-02-27 21:40] LABS: Calcium 8.1 mg/dL (8.6-10.8); Potassium 5.5 mEq/L (3.5-4.5)
[2017-02-28] MEDS: Ipratropium/Albuterol Neb 3 ML IH SCH ×6 (03:42→23:50)
[2017-02-28 03:43] LABS: ABG Base Excess -0.6 mEq/L (-2.0 to 3.0); ABG HCO3 29.2 mEQ/L (21-27); ABG Oxygen Saturation 98 % (95-98); ABG PO2 124 mmHg (85-104); ABG TCO2 31.7 mEq/L (20-26)
[2017-02-28 03:45] LABS: Blood Gas FiO2 50 %; Blood Gas PEEP 5 cm H2O; Blood Gas Respiration Rate 26; Blood Gas VT 500 cc
[2017-02-28 03:46] LABS: ABG PCO2 82 mmHg (35-45); ABG PH 7.16 pH Units (7.32-7.45)
[2017-02-28 04:06] LABS: Ionized Calcium 0.99 mmol/L (1.15-1.35)
[2017-02-28 04:08] LABS: Basophils % 0.3 %; Hematocrit 27.3 % (37.5-50.1); Immature Granulocytes % 3.2 % (0-4); Lymphocytes # 0.6 K/mcL (0.6-4.6); Lymphocytes % 7.3 %; Mean Corpuscular HGB Conc 31.5 g/dL (31.6-35.5); Mean Corpuscular Hemoglobin 27.6 pg (28.0-33.3); Mean Corpuscular Volume 87.5 fL (83.0-100.0); Mean Platelet Volume 10.9 fL (9.4-12.4); Monocytes # 0.7 K/mcL (0.0-1.3); Monocytes % 8.9 %; Neutrophils # 6.2 K/mcL (1.6-8.9); Platelet Count 112 K/mcL (140-400); Red Blood Count 3.12 M/mcL (4.19-5.50); Red Cell Distribution Width 16.7 % (11.5-14.5); Segmented Neutrophils % 80.3 %
[2017-02-28 04:15] LABS: Albumin 2.9 g/dL (3.5-5.0); Albumin/Globulin Ratio 0.6 (1.1-2.2); Bilirubin,Direct 0.6 mg/dL (0.0-0.5); Bilirubin,Indirect 0.2 mg/dL (0.0-1.2); Bilirubin,Total 0.8 mg/dL (0.2-1.2); Calcium 8.1 mg/dL (8.6-10.8); Globulin 5.1 g/dL (2.4-3.5); Magnesium 1.9 mg/dL (1.6-2.6); Potassium 5.8 mEq/L (3.5-4.5)
[2017-02-28 04:16] LABS: Hemoglobin 8.6 g/dL (12.9-16.9)
[2017-02-28 04:55] LABS: ABG Base Excess -0.7 mEq/L (-2.0 to 3.0); ABG HCO3 29.3 mEQ/L (21-27); ABG Oxygen Saturation 93 % (95-98); ABG PO2 85 mmHg (85-104); ABG TCO2 31.9 mEq/L (20-26)
[2017-02-28 04:56] LABS: Blood Gas FiO2 50 %; Blood Gas PEEP 8 cm H2O; Blood Gas Respiration Rate 18; Blood Gas VT 450 cc
[2017-02-28 04:57] LABS: ABG PCO2 84 mmHg (35-45); ABG PH 7.15 pH Units (7.32-7.45)
[2017-02-28] MEDS ORDERED: Calcium Gluconate 2,000 MG in D5% in Water 100 ML IVPB ONE (05:58)
[2017-02-28 06:03] LABS: Hypochromasia Present (Not Present); Platelet Estimate Decreased (Normal)
[2017-02-28] MEDS: *HR* Heparin 5,000 UNIT/ML VIAL SQ SCH ×3 (06:05→21:01)
[2017-02-28] MEDS: 0.9 % Sodium Chloride 1,000 ML IVC SCH (06:10)
[2017-02-28 06:59] LABS: ABG Base Excess -4.5 mEq/L (-2.0 to 3.0); ABG HCO3 26.9 mEQ/L (21-27); ABG Oxygen Saturation 91 % (95-98); ABG PO2 80 mmHg (85-104); ABG TCO2 29.4 mEq/L (20-26)
[2017-02-28 07:00] LABS: ABG PCO2 81 mmHg (35-45); ABG PH 7.13 pH Units (7.32-7.45)
[2017-02-28 07:01] LABS: Blood Gas FiO2 60 %
--- NOTE | 2017-02-28 07:35 | Pulmonology Progress Note ---
<SheridanTico W - Last Filed: 02/28/17 10:33> Date of Encounter: 02/28/17 Objective PUL Vital signs: Last Vital Signs Temp 92.3 F L 02/28/17 09:00 Pulse 68 02/28/17 09:00 Resp 30 02/28/17 09:00 BP 163/83 02/28/17 09:00 Pulse Ox 94 02/28/17 09:00 Ventilator Settings Ventilator Settings: Ventilator Settings, Last 8 Hours Ventilator Mode PC Ventilator Mode PC Ventilator Mode PC Ventilator Mode PC Ventilator Mode PC Ventilator Mode A/C Ventilator Mode A/C Ventilator Mode A/C Ventilator Mode A/C Ventilator Mode A/C Ventilator Mode A/C Ventilator Mode A/C Ventilator Mode VC+ Ventilator Mode A/C Ventilator Mode VC+ Ventilator Tidal Volume 30 Setting Ventilator Tidal Volume 450 Setting Ventilator Tidal Volume 450 Setting Ventilator Tidal Volume 450 Setting Ventilator Tidal Volume 450 Setting Ventilator Tidal Volume 450 Setting Ventilator Tidal Volume 500 Setting Ventilator Tidal Volume 500 Setting Ventilator Tidal Volume 500 Setting Ventilator Tidal Volume 500 Setting Ventilator Tidal Volume 500 Setting Ventilator Respiratory Rate 30 Setting Ventilator Respiratory Rate 28 Setting Ventilator Respiratory Rate 28 Setting Ventilator Respiratory Rate 28 Setting Ventilator Respiratory Rate 26 Setting Ventilator Respiratory Rate 26 Setting Ventilator Respiratory Rate 26 Setting Ventilator Respiratory Rate 26 Setting Ventilator Respiratory Rate 18 Setting Ventilator Respiratory Rate 18 Setting Ventilator Respiratory Rate 18 Setting Ventilator Respiratory Rate 18 Setting Ventilator Respiratory Rate 26 Setting Ventilator Respiratory Rate 18 Setting Ventilator Respiratory Rate 26 Setting Actual Respiratory Rate 30 Actual Respiratory Rate 28 Actual Respiratory Rate 28 Actual Respiratory Rate 26 Actual Respiratory Rate 26 Actual Respiratory Rate 26 Actual Respiratory Rate 18 Actual Respiratory Rate 18 Actual Respiratory Rate 18 Actual Respiratory Rate 18 Actual Respiratory Rate 31 Positive End Expiratory 8 Pressure Positive End Expiratory 8 Pressure Positive End Expiratory 8 Pressure Positive End Expiratory 8 Pressure Positive End Expiratory 8 Pressure Positive End Expiratory 8 Pressure Positive End Expiratory 8 Pressure Positive End Expiratory 8 Pressure Positive End Expiratory 8 Pressure Positive End Expiratory 8 Pressure Positive End Expiratory 8 Pressure Positive End Expiratory 5 Pressure Positive End Expiratory 5 Pressure Positive End Expiratory 5 Pressure Peak Inspiratory Airway 40 Pressure Peak Inspiratory Airway 44 Pressure Peak Inspiratory Airway 38 Pressure Peak Inspiratory Airway 43 Pressure Peak Inspiratory Airway 48 Pressure Peak Inspiratory Airway 23 Pressure Peak Inspiratory Airway 23 Pressure Peak Inspiratory Airway 23 Pressure Peak Inspiratory Airway 47 Pressure Peak Inspiratory Airway 23 Pressure Peak Inspiratory Airway 23 Pressure Results - Laboratory Findings CBC and BMP: 02/28/17 03:18 02/28/17 03:18 ABG ABG pH 7.19 pH Units (7.32-7.45) L* 02/28/17 08:01 ABG pCO2 70 mmHg (35-45) H* 02/28/17 08:01 ABG pO2 133 mmHg (85-104) H 02/28/17 08:01 ABG O2 Saturation 98 % (95-98) 02/28/17 08:01 PT/INR, D-dimer PT 13.7 Seconds (9.4-12.1) H 02/27/17 17:40 Abnormal lab findings: Abnormal lab results RBC 3.12 M/mcL (4.19-5.50) L 02/28/17 03:18 Hgb 8.6 g/dL (12.9-16.9) L D 02/28/17 03:18 Hct 27.3 % (37.5-50.1) L 02/28/17 03:18 MCH 27.6 pg (28.0-33.3) L 02/28/17 03:18 MCHC 31.5 g/dL (31.6-35.5) L 02/28/17 03:18 RDW 16.7 % (11.5-14.5) H 02/28/17 03:18 Plt Count 112 K/mcL (140-400) L 02/28/17 03:18 Platelet Estimate Decreased (Normal) L 02/28/17 03:18 Hypochromasia Present (Not Present) A 02/28/17 03:18 PT 13.7 Seconds (9.4-12.1) H 02/27/17 17:40 ABG pH 7.19 pH Units (7.32-7.45) L* 02/28/17 08:01 ABG pCO2 70 mmHg (35-45) H* 02/28/17 08:01 ABG pO2 133 mmHg (85-104) H 02/28/17 08:01 ABG Total CO2 28.8 mEq/L (20-26) H 02/28/17 08:01 Sodium 134 mEq/L (136-145) L 02/28/17 03:18 Potassium 5.8 mEq/L (3.5-4.5) H 02/28/17 03:18 Chloride 94 mEq/L (98-109) L 02/28/17 03:18 BUN 81 mg/dL (8-26) H 02/28/17 03:18 Creatinine 6.28 mg/dL (0.72-1.25) H 02/28/17 03:18 Est GFR ( Amer) 11 (> 60) L 02/28/17 03:18 Est GFR (Non-Af Amer) 9 (> 60) L 02/28/17 03:18 Glucose 127 mg/dL (70-99) H 02/28/17 03:18 POC Glucose 120 (58-89) H 02/28/17 08:21 Calculated Osmolality 304 (280-300) H 02/28/17 03:18 Calcium 8.1 mg/dL (8.6-10.8) L 02/28/17 03:18 Ionized Calcium 0.99 mmol/L (1.15-1.35) L 02/28/17 03:18 Iron 43 mcg/dL (65-175) L 02/27/17 04:22 Transferrin 134 mg/dL (174-364) L 02/27/17 04:22 Ferritin 3147 ng/ml (22-275) H 02/27/17 04:22 Direct Bilirubin 0.6 mg/dL (0.0-0.5) H 02/28/17 03:18 AST 47 Units/L (5-34) H 02/28/17 03:18 Alkaline Phosphatase 135 Units/L (38-126) H 02/28/17 03:18 Troponin I 0.05 ng/mL (0-0.03) H* 02/27/17 17:40 Albumin 2.9 g/dL (3.5-5.0) L 02/28/17 03:18 Globulin 5.1 g/dL (2.4-3.5) H 02/28/17 03:18 Albumin/Globulin Ratio 0.6 (1.1-2.2) L 02/28/17 03:18 Triglycerides 158 mg/dL (< 150) H 02/26/17 04:28 VLDL Cholesterol, Calc 32 mg/dL (< 31) H 02/26/17 04:28 - Clinical Findings Intake & Output: Intake & Output 02/27/17 02/28/17 02/28/17 23:59 07:59 15:59 Intake Total 350 / 350 470 / 470 120 / 120 Output Total 0 / 0 Balance 350 / 350 470 / 470 120 / 120 Weight 115.5 kg Consult Discharge Plan - Plan Referrals: Chilo Lewis Jr, MD [Primary Care Provider] - (Possible back to ECF ?) - Attending Attestation I examined this patient and my medical decision-making was reviewed with the PLATEN DRIER OPERATOR/PA/Advanced Practice Nurse/Resident Physician. I agree with the documented findings, disposition and treatment plan as described except to the extent set forth below. I spent 35min of Critical Care time with this patient. It involved decision making of high complexity to assess, manipulate, and support vital organ system failure and/or to prevent further life threatening deterioration of the patient' s condition. The time involved in the performance of separately reportable procedures was not counted toward critical care time. Patient seen and examined at bedside Labs, radiology, chart personally reviewed. All lines examined without evidence of infection. Neuropsych: Evidence of severe anoxic brain injury s/p Cardiac arrest with possible Donta reflex - repeat Head CT. Rewarm to 36C. Stop sedation EEG Neuro consult based upon findings. Pulm: Worsening pulmonary compliance with ARDS physiology. High Peek/Plat pressure with worsening space ventilation. Vent mode switched from VC to PC with modest decrease in TV repeat ABG pending. MECHANICAL TEST TECHNICIAN for Cardiogenic/Non cardiogenic pulmonary edema. Consider Prone Positioning based upon Neuro evaluation. Cont LTV ventilatory strategy Goal PEEK <36 and Plat <30. Permisive Hypercapnia with goal pH >7.2 and PaO2 >55. Cards: S/p Cardiac arrest (asytole) ? s/t Pulmonary Edema vs Arrhythmia. Worsening pulmonary edema today. BP also continues to rise should improve post fluid removal. Trop only modestly elevated and not suggestive of ACS. FEN-GI: NPO for now. PPi given Renal: ESRD Nephro following MECHANICAL TEST TECHNICIAN today ID: Cultures obtained empiric ABx started deescalate at 48Hours if culture negative Heme/Onc: H/H stable s/p transfusion. Chronic baseline thrombocytopenia Endo: Glucose monitored Integ/MSK: Skin care per routine ICU Protocol CODE: Overall Poor Prognosis. Plan to update family with goals of Care. <Alicia Jones - Last Filed: 02/28/17 10:56> Date of Encounter: 02/28/17 Time of Encounter: 07:59 Assessment and Plan (1) Acute respiratory failure Current Visit: Yes Status: Acute Patient's day 1 status post cardiac arrest. He is intubated and on the ventilator. He is not responsive at this time. He is only on fentanyl at 50 g. No other sedation. He was initially called to the hospital for treatment for one positive blood culture positive for Klebsiella. He has had 2 negative blood cultures since this. He subsequently had a cardiac arrest event after he was removed from dialysis. During this event the patient was noted to be in asystole. He was given epinephrine and sodium bicarbonate as well as calcium chloride. He was anemic after the arrest and given 1 unit of blood. This brought his hemoglobin up to 8.6 from 6. Patient is a chronic dialysis patient. He is Dr. Carroll's patient. Plan: Rewarm EEG Head CT Dialysis Antibiotics: Vancomycin Zosyn GI prophylaxis: Protonix 40 mg IV push daily DVT prophylaxis Heparin subcutaneous 5000 units every 8 (2) Dialysis patient Current Visit: No Status: Acute Patient has chronic renal failure. He is a patient of Dr. Mendez Plan: Dialysis today. (3) End-stage renal disease Current Visit: No Status: Chronic Plan as above (4) Bacteremia due to Klebsiella pneumoniae Current Visit: Yes Status: Acute 1 positive blood culture. 2 negative blood cultures since the initial positive. Plan: Plan as above. Subjective Interval history: Patient had an event overnight where he became difficult to ventilate. His ET tube was suctioned. An ventilator settings were changed. He was taken off the ventilator several times and bagged. This seemed to clear the event. However after this he was found to be bradycardic as well as hypotensive. This morning we still have no response from the patient. He is on a fentanyl drip at 50. We will discontinue this. He is not on any other sedation. This morning his ventilator settings have it changed again as patient presents as a possible pulmonary edema/ARDS presentation. We are also concerned for Donta syndrome due to his bradycardia and hypertension. We will get a CT if patient's head this morning. We have also ordered an EEG today. Nephrology on board. We will dialyze patient today. Patient does have worsening of his pulmonary edema noted on chest x-ray. Objective PUL Vital signs: Last Vital Signs Temp 91.0 F L 02/28/17 06:00 Pulse 64 02/28/17 06:00 Resp 26 02/28/17 06:05 BP 181/105 02/28/17 06:05 Pulse Ox 100 02/28/17 06:05 General appearance: other (Patient intubated and on the ventilator. Only requiring 50 mics of fentanyl. No other sedation. Not responding. Has fleeting eye movements that are nonpurposeful.) Eyes: nonicteric ENT: oropharynx moist Neck: supple Effort: other (Assisted) Auscultation: bilateral: wheezes (Upper lobes), rhonchi (Lower lobes) Cardiovascular: regular rate and rhythm (Bradycardic) Gastrointestinal: normoactive bowel sounds, soft, non-distended Integumentary: normal Extremities: no cyanosis, no edema, no clubbing Musculoskeletal: no deformities Ventilator Settings Ventilator Settings: Ventilator Settings, Last 8 Hours Ventilator Mode A/C Ventilator Mode A/C Ventilator Mode A/C Ventilator Mode A/C Ventilator Mode A/C Ventilator Mode A/C Ventilator Mode VC+ Ventilator Mode A/C Ventilator Mode VC+ Ventilator Mode VC+ Ventilator Mode VC+ Ventilator Mode VC+ Ventilator Mode VC+ Ventilator Tidal Volume 450 Setting Ventilator Tidal Volume 450 Setting Ventilator Tidal Volume 450 Setting Ventilator Tidal Volume 450 Setting Ventilator Tidal Volume 500 Setting Ventilator Tidal Volume 500 Setting Ventilator Tidal Volume 500 Setting Ventilator Tidal Volume 500 Setting Ventilator Tidal Volume 500 Setting Ventilator Tidal Volume 500 Setting Ventilator Tidal Volume 500 Setting Ventilator Tidal Volume 500 Setting Ventilator Tidal Volume 500 Setting Ventilator Respiratory Rate 26 Setting Ventilator Respiratory Rate 26 Setting Ventilator Respiratory Rate 18 Setting Ventilator Respiratory Rate 18 Setting Ventilator Respiratory Rate 18 Setting Ventilator Respiratory Rate 18 Setting Ventilator Respiratory Rate 26 Setting Ventilator Respiratory Rate 18 Setting Ventilator Respiratory Rate 26 Setting Ventilator Respiratory Rate 26 Setting Ventilator Respiratory Rate 26 Setting Ventilator Respiratory Rate 26 Setting Ventilator Respiratory Rate 26 Setting Actual Respiratory Rate 26 Actual Respiratory Rate 26 Actual Respiratory Rate 18 Actual Respiratory Rate 18 Actual Respiratory Rate 18 Actual Respiratory Rate 18 Actual Respiratory Rate 31 Actual Respiratory Rate 31 Actual Respiratory Rate 31 Actual Respiratory Rate 30 Actual Respiratory Rate 30 Positive End Expiratory 8 Pressure Positive End Expiratory 8 Pressure Positive End Expiratory 8 Pressure Positive End Expiratory 8 Pressure Positive End Expiratory 8 Pressure Positive End Expiratory 8 Pressure Positive End Expiratory 5 Pressure Positive End Expiratory 5 Pressure Positive End Expiratory 5 Pressure Positive End Expiratory 5 Pressure Positive End Expiratory 5 Pressure Positive End Expiratory 5 Pressure Positive End Expiratory 5 Pressure Peak Inspiratory Airway 48 Pressure Peak Inspiratory Airway 23 Pressure Peak Inspiratory Airway 23 Pressure Peak Inspiratory Airway 23 Pressure Peak Inspiratory Airway 47 Pressure Peak Inspiratory Airway 23 Pressure Peak Inspiratory Airway 23 Pressure Peak Inspiratory Airway 23 Pressure Peak Inspiratory Airway 32 Pressure Peak Inspiratory Airway 32 Pressure Results - Laboratory Findings CBC and BMP: 02/28/17 03:18 02/28/17 03:18 ABG ABG pH 7.13 pH Units (7.32-7.45) L* 02/28/17 06:08 ABG pCO2 81 mmHg (35-45) H* 02/28/17 06:08 ABG pO2 80 mmHg (85-104) L 02/28/17 06:08 ABG O2 Saturation 91 % (95-98) L 02/28/17 06:08 PT/INR, D-dimer PT 13.7 Seconds (9.4-12.1) H 02/27/17 17:40 Abnormal lab findings: Abnormal lab results RBC 3.12 M/mcL (4.19-5.50) L 02/28/17 03:18 Hgb 8.6 g/dL (12.9-16.9) L D 02/28/17 03:18 Hct 27.3 % (37.5-50.1) L 02/28/17 03:18 MCH 27.6 pg (28.0-33.3) L 02/28/17 03:18 MCHC 31.5 g/dL (31.6-35.5) L 02/28/17 03:18 RDW 16.7 % (11.5-14.5) H 02/28/17 03:18 Plt Count 112 K/mcL (140-400) L 02/28/17 03:18 Platelet Estimate Decreased (Normal) L 02/28/17 03:18 Hypochromasia Present (Not Present) A 02/28/17 03:18 PT 13.7 Seconds (9.4-12.1) H 02/27/17 17:40 ABG pH 7.13 pH Units (7.32-7.45) L* 02/28/17 06:08 ABG pCO2 81 mmHg (35-45) H* 02/28/17 06:08 ABG pO2 80 mmHg (85-104) L 02/28/17 06:08 ABG Total CO2 29.4 mEq/L (20-26) H 02/28/17 06:08 ABG O2 Saturation 91 % (95-98) L 02/28/17 06:08 ABG Base Excess -4.5 mEq/L (-2.0 to 3.0) L 02/28/17 06:08 Sodium 134 mEq/L (136-145) L 02/28/17 03:18 Potassium 5.8 mEq/L (3.5-4.5) H 02/28/17 03:18 Chloride 94 mEq/L (98-109) L 02/28/17 03:18 BUN 81 mg/dL (8-26) H 02/28/17 03:18 Creatinine 6.28 mg/dL (0.72-1.25) H 02/28/17 03:18 Est GFR ( Amer) 11 (> 60) L 02/28/17 03:18 Est GFR (Non-Af Amer) 9 (> 60) L 02/28/17 03:18 Glucose 127 mg/dL (70-99) H 02/28/17 03:18 POC Glucose 123 (58-89) H 02/28/17 05:44 Calculated Osmolality 304 (280-300) H 02/28/17 03:18 Calcium 8.1 mg/dL (8.6-10.8) L 02/28/17 03:18 Ionized Calcium 0.99 mmol/L (1.15-1.35) L 02/28/17 03:18 Iron 43 mcg/dL (65-175) L 02/27/17 04:22 Transferrin 134 mg/dL (174-364) L 02/27/17 04:22 Ferritin 3147 ng/ml (22-275) H 02/27/17 04:22 Direct Bilirubin 0.6 mg/dL (0.0-0.5) H 02/28/17 03:18 AST 47 Units/L (5-34) H 02/28/17 03:18 Alkaline Phosphatase 135 Units/L (38-126) H 02/28/17 03:18 Troponin I 0.05 ng/mL (0-0.03) H* 02/27/17 17:40 Albumin 2.9 g/dL (3.5-5.0) L 02/28/17 03:18 Globulin 5.1 g/dL (2.4-3.5) H 02/28/17 03:18 Albumin/Globulin Ratio 0.6 (1.1-2.2) L 02/28/17 03:18 Triglycerides 158 mg/dL (< 150) H 02/26/17 04:28 VLDL Cholesterol, Calc 32 mg/dL (< 31) H 02/26/17 04:28 - Diagnostic Findings Chest x-ray: report reviewed, image reviewed - Clinical Findings Intake & Output: Intake & Output 02/27/17 02/27/17 02/28/17 15:59 23:59 07:59 Intake Total 350 / 350 470 / 470 Balance 350 / 350 470 / 470 Weight 115.5 kg Pulmonary Procedures - Arterial Line Size (Gauge): 20
[2017-02-28] MEDS: Budesonide/Formoterol 160/4.5 MDI IH SCH ×2 (07:44→20:47)
[2017-02-28] MEDS ORDERED: Vancomycin 1,750 MG in D5% in Water 250 ML IVPB SCH (08:00)
[2017-02-28 08:12] LABS: ABG HCO3 26.7 mEQ/L (21-27); ABG Oxygen Saturation 98 % (95-98); ABG PO2 133 mmHg (85-104); ABG TCO2 28.8 mEq/L (20-26)
[2017-02-28 08:15] LABS: ABG PCO2 70 mmHg (35-45); ABG PH 7.19 pH Units (7.32-7.45); Blood Gas FiO2 50 %
[2017-02-28] MEDS: Insulin LISPRO 300 UNITS/3 ML VIAL SQ SCH ×4 (08:56→20:10)
[2017-02-28] MEDS ORDERED: Lacri-Lube 3.5 GM TUBE BOTH EYES PRN (09:03)
--- NOTE | 2017-02-28 09:32 | Nephrology Progress Note ---
Date of Encounter: 02/28/17 Time of Encounter: 09:15 - Assessment and Plan (1) ESRD on dialysis Current Visit: Yes Status: Chronic S/P cardiac arrest. Positive blood cultures; Klebsiella Pneumonaie, Zosyn, Vanco. K= 5.8. Will do HD today, orders given. Subjective Interval history: S/P cardiac arrest. In ICU, intubated, FIo2 .60, peep 8, sedation just now held. Non responsive. Eyes open. Objective - Vital Signs Vital signs: Vital Signs Temp Pulse Resp BP Pulse Ox 02/28/17 09:00 92.3 F L 68 30 163/83 94 02/28/17 08:15 91.4 F L 60 28 139/83 100 02/28/17 07:44 28 139/83 100 02/28/17 07:24 90.5 F L 54 33 148/87 100 02/28/17 06:05 26 181/105 100 02/28/17 06:00 91.0 F L 64 18 181/105 100 02/28/17 05:00 90.0 F L 58 18 148/76 100 02/28/17 04:00 90.5 F L 57 18 146/79 96 02/28/17 03:42 18 152/97 96 02/28/17 03:00 90.5 F L 60 18 125/72 96 02/28/17 02:00 89.6 F L 77 26 150/77 100 02/28/17 01:30 90.5 F L 79 31 140/85 100 02/28/17 01:24 31 148/85 100 02/28/17 01:00 91.0 F L 79 31 152/104 100 02/28/17 00:08 67 02/28/17 00:00 89.6 F L 67 26 150/83 100 02/27/17 23:52 30 171/81 100 02/27/17 23:06 90.5 F L 72 26 152/111 100 02/27/17 22:53 90.7 F L 26 152/112 100 02/27/17 22:38 91.4 F L 76 26 159/138 100 02/27/17 22:00 92.7 F L 78 26 167/92 100 02/27/17 21:40 30 100 02/27/17 21:35 30 154/114 100 02/27/17 21:30 92.8 F L 26 154/92 100 02/27/17 21:15 93.6 F L 26 161/88 100 02/27/17 21:00 93.7 F L 86 26 177/111 100 02/27/17 20:45 93.9 F L 88 26 155/109 100 02/27/17 20:30 93.9 F L 89 26 185/97 100 02/27/17 20:15 94.3 F L 88 26 144/105 100 02/27/17 20:08 88 02/27/17 20:00 94.6 F L 87 26 158/95 100 02/27/17 19:50 27 158/95 100 02/27/17 19:45 95 F L 81 26 145/80 100 02/27/17 19:30 95.4 F L 77 26 150/80 100 02/27/17 19:15 95.7 F L 77 26 147/109 100 02/27/17 19:00 96.1 F L 68 26 164/78 100 02/27/17 18:30 59 18 119/77 02/27/17 17:30 56 18 98/87 100 Intake and Output 02/27/17 02/28/17 02/28/17 23:59 07:59 15:59 Intake Total 350 / 350 470 / 470 120 / 120 Output Total 0 / 0 Balance 350 / 350 470 / 470 120 / 120 Intake: IV Fluids 350 / 350 145 / 145 120 / 120 FentaNYL (PF) 1,000 MCG 45 / 45 In 0.9 % Sodium Chloride 80 ML @ 50 MCG/HR 5 mls/ hr IVC CONT NENA Rx#: [id number] Calcium Gluconate 2,000 120 / 120 MG In Dextrose 5% 100 ML @ 220 mls/hr IVPB ONCE ONE Rx#:[id number] Zosyn 3.375 GM In 100 / 100 100 / 100 Dextrose 5% (Minibag+) 100 ML 100 ML @ 25 mls/hr IVPB Q12H [facility] Rx#: [id number] Vancocin 1,000 MG In 250 / 250 Dextrose 5% 250 ML @ 167 mls/hr IVPB ONCE ONE Rx#: [id number] Oral 0 / 0 0 / 0 Blood Product 0 / 0 325 / 325 Rbcs Leuko Poor As-1 0 / 0 325 / 325 Unit [id number] Output: Urine 0 / 0 Other: Stool Size Copious Stool Consistency loose Stool Color Brown Weight 115.5 kg Blood Glucose* 158 123 120 Patient Weight 02/28/17 23:59 Weight 115.5 kg - General Appearance General appearance: Present: well-developed, well-nourished, appears started age , obese EENT: Present: mucous membranes moist Neck: Present: no JVD Respiratory: Present: wheezing Cardiology: Present: edema, irregular rhythm Additional Comments: mild Gastrointestinal: Present: hypoactive bowel sounds - Lab 02/28/17 03:18 02/28/17 03:18 Most recent lab results ABG pH 7.19 pH Units (7.32-7.45) L* 02/28/17 08:01 ABG pCO2 70 mmHg (35-45) H* 02/28/17 08:01 ABG pO2 133 mmHg (85-104) H 02/28/17 08:01 ABG HCO3 26.7 mEQ/L (21-27) 02/28/17 08:01 ABG O2 Saturation 98 % (95-98) 02/28/17 08:01 Calcium 8.1 mg/dL (8.6-10.8) L 02/28/17 03:18 Magnesium 1.9 mg/dL (1.6-2.6) 02/28/17 03:18 Consult Discharge Plan - Plan Referrals: Chilo Lewis Jr, MD [Primary Care Provider] - (Possible back to ECF ?)
[2017-02-28] MEDS: Lacri-Lube 3.5 GM TUBE BOTH EYES SCH ×4 (09:54→23:04)
[2017-02-28] MEDS: Aspirin 81 MG TAB.CHEW PO SCH (09:55)
[2017-02-28] MEDS: cloNIDine HCl 0.1 MG TABLET PO SCH (09:55)
[2017-02-28] MEDS: amLODIPine 5 MG TABLET PO SCH (09:55)
[2017-02-28] MEDS: Piperacillin/Tazobactam 3.375 GM in D5% in Water (Mini-Bag+) 100 ML IVPB SCH ×2 (09:59→21:01)
[2017-02-28] MEDS: Pantoprazole 40 MG VIAL IVP SCH (09:59)
[2017-02-28 11:37] LABS: ABG Base Excess -1.5 mEq/L (-2.0 to 3.0); ABG HCO3 25.7 mEQ/L (21-27); ABG Oxygen Saturation 99 % (95-98); ABG PCO2 56 mmHg (35-45); ABG PH 7.27 pH Units (7.32-7.45); ABG PO2 137 mmHg (85-104); ABG TCO2 27.4 mEq/L (20-26)
[2017-02-28 11:38] LABS: Blood Gas FiO2 60 %
[2017-02-28] MEDS ORDERED: 0.9 % Sodium Chloride 250 ML IVC PRN (14:35)
[2017-02-28] MEDS ORDERED: 0.9 % Sodium Chloride 1,000 ML PRIME SCH (14:45)
[2017-02-28 16:15] LABS: Hematocrit 25.3 % (37.5-50.1); Lymphocytes # 0.7 K/mcL (0.6-4.6); Mean Corpuscular HGB Conc 31.6 g/dL (31.6-35.5); Mean Corpuscular Hemoglobin 27.3 pg (28.0-33.3); Mean Corpuscular Volume 86.3 fL (83.0-100.0); Mean Platelet Volume 10.6 fL (9.4-12.4); Platelet Count 112 K/mcL (140-400); Red Blood Count 2.93 M/mcL (4.19-5.50); Red Cell Distribution Width 16.9 % (11.5-14.5)
[2017-02-28 16:30] LABS: Calcium 7.8 mg/dL (8.6-10.8); Magnesium 1.8 mg/dL (1.6-2.6)
[2017-02-28 16:55] LABS: Monocytes # 0.4 K/mcL (0.0-1.3)
[2017-02-28 16:56] LABS: Anisocytosis 1+ (Not Present); Reactive Lymphocytes Present (Not Present)
[2017-02-28 16:57] LABS: Polychromasia 1+ (Not Present)
--- NOTE | 2017-02-28 18:09 | EEG/EMG/Oth Biometrics Report ---
EEG Procedure Report Date of procedure: 02/28/17 EEG Procedure: Routine EEG Procedure Note: This is a report of a 21 channel bipolar and referential montage EEG. There is no posterior dominant alpha rhythm identified during the recording. Heavy artifactual content is present in the anterior leads as well as in the EKG rhythm strip. The posterior leads reveal no evidence of cortical activity. There is no sleep architecture identified in the study. Pt. is intubated. Hyperventilation is not performed. Photic stimulation is not performed. The EKG rhythm reveals NSR at 84 BPM. Impressions: This EEG recording is abnormal revealing severe generalized encephalopathy at best. Heavy artifactual content precludes more specific deleniation regarding the presence electrocerebral silence. There is no evidence of epileptiform activity identified during the recording. Please correlate clinically.
[2017-02-28] MEDS: Chlorhexidine Rinse 15 ML MOUTHWASH MM SCH (20:09)
[2017-02-28 22:10] LABS: ABG HCO3 31.4 mEQ/L (21-27); ABG Oxygen Saturation 98 % (95-98); ABG PH 7.26 pH Units (7.32-7.45); ABG PO2 110 mmHg (85-104); ABG TCO2 33.5 mEq/L (20-26)
[2017-02-28 22:12] LABS: ABG PCO2 70 mmHg (35-45); Blood Gas FiO2 60 %
[2017-03-01] MEDS: Lacri-Lube 3.5 GM TUBE BOTH EYES SCH ×5 (03:05→20:59)
[2017-03-01 03:17] LABS: Basophils % 0.1 %; Eosinophils % 0.1 %; Hemoglobin 8.5 g/dL (12.9-16.9); Immature Granulocytes % 1.8 % (0-4); Lymphocytes # 0.9 K/mcL (0.6-4.6); Lymphocytes % 11.8 %; Mean Corpuscular HGB Conc 31.5 g/dL (31.6-35.5); Mean Corpuscular Hemoglobin 27.4 pg (28.0-33.3); Mean Corpuscular Volume 87.1 fL (83.0-100.0); Mean Platelet Volume 10.2 fL (9.4-12.4); Monocytes # 0.8 K/mcL (0.0-1.3); Monocytes % 9.9 %; Platelet Count 121 K/mcL (140-400); Red Cell Distribution Width 16.9 % (11.5-14.5); Segmented Neutrophils % 76.3 %
[2017-03-01 03:21] LABS: Potassium 5.2 mEq/L (3.5-4.5)
[2017-03-01 03:55] LABS: Hypochromasia Present (Not Present); Platelet Estimate Slight Decrease (Normal); Reactive Lymphocytes Present (Not Present); Smudge Cells Present (Not Present)
[2017-03-01] MEDS: Ipratropium/Albuterol Neb 3 ML IH SCH ×6 (04:46→23:59)
[2017-03-01 04:47] LABS: ABG Base Excess 4.1 mEq/L (-2.0 to 3.0); ABG Oxygen Saturation 94 % (95-98); ABG PCO2 68 mmHg (35-45); ABG PH 7.28 pH Units (7.32-7.45); ABG PO2 81 mmHg (85-104); ABG TCO2 34.1 mEq/L (20-26)
[2017-03-01 04:48] LABS: Blood Gas FiO2 50 %
[2017-03-01] MEDS: *HR* Heparin 5,000 UNIT/ML VIAL SQ SCH ×3 (05:00→21:19)
[2017-03-01] MEDS ORDERED: Sodium Phosphate 30 MMOL in D5% in Water 100 ML IVPB PRN (07:10)
[2017-03-01] MEDS ORDERED: Magnesium Sulfate 2 GM in D5% in Water 100 ML IVPB PRN (07:10)
[2017-03-01] MEDS: Budesonide/Formoterol 160/4.5 MDI IH SCH ×2 (07:19→19:52)
[2017-03-01] MEDS: Insulin LISPRO 300 UNITS/3 ML VIAL SQ SCH ×4 (07:43→20:58)
[2017-03-01] MEDS: Pantoprazole 40 MG VIAL IVP SCH (07:51)
[2017-03-01] MEDS: cloNIDine HCl 0.1 MG TABLET PO SCH (07:51)
[2017-03-01] MEDS: Chlorhexidine Rinse 15 ML MOUTHWASH MM SCH ×2 (07:51→21:19)
[2017-03-01] MEDS: Aspirin 81 MG TAB.CHEW PO SCH (07:51)
[2017-03-01] MEDS: amLODIPine 5 MG TABLET PO SCH (07:53)
--- NOTE | 2017-03-01 08:02 | Pulmonology Progress Note ---
<Alicia Jones - Last Filed: 03/01/17 08:49> Date of Encounter: 03/01/17 Time of Encounter: 08:02 Assessment and Plan (1) Acute respiratory failure Current Visit: Yes Status: Acute Patient's day 2 status post cardiac arrest. He is intubated and on the ventilator. He is not responsive to me at this time. The overnight nurse reports some possible purposeful movements however we did not witness these today. We will continue to monitor. He is also sedation at this time. And has been all day yesterday as well. He was initially called to the hospital for treatment for one positive blood culture positive for Klebsiella. He has had 2 negative blood cultures since this. He subsequently had a cardiac arrest event after he was removed from dialysis. During this event the patient was noted to be in asystole. He was given epinephrine and sodium bicarbonate as well as calcium chloride. He was anemic after the arrest and given 1 unit of blood. This brought his hemoglobin up to 8.6 from 6. Patient is a chronic dialysis patient. He is Dr. Carroll's patient. Patient EEG was read as abnormal however there is a lot of artifact due to the ventilator. CT showed no acute findings. Patient was rewarmed overnight We will continue to monitor for any increase in neurologic function. There is a concern for a possible TROLI due to increased pulmonary edema after his blood transfusion. We are stopping antibiotics today. It is not appears patient has an infectious process. The Klebsiella was most likely contaminant as he has had 2 negative blood cultures since then. He is no longer bradycardic. He is now tachycardic and hypertensive. We will continue patient's Coreg. We will steadily increase this and titrate to patient 's heart rate and blood pressure. Plan: Dialysis Serial Neuro exams Increase Coreg GI prophylaxis: Protonix 40 mg IV push daily DVT prophylaxis Heparin subcutaneous 5000 units every 8 (2) Dialysis patient Current Visit: No Status: Acute Patient has chronic renal failure. He is a patient of Dr. Mendez Plan: Dialysis (3) End-stage renal disease Current Visit: No Status: Chronic Chronic Plan as above (4) Bacteremia due to Klebsiella pneumoniae Current Visit: Yes Status: Acute 1 positive blood culture. 2 negative blood cultures since the initial positive. Plan: Likely contaminate Subjective Interval history: No overnight events. Overnight nurse states that he believes the patient possibly make some purposeful movements such as moving his eyes and turning his head away from stimulus. He also noticed some finger movements but is unsure if this was purposeful or not. I have not witnessed these today nor has the day nurse we will continue to monitor for these. Patient is off pressors. He is now tachycardic and hypertensive. We will increase Coreg throughout the day. Objective PUL Vital signs: Last Vital Signs Temp 99.8 F H 03/01/17 07:15 Pulse 104 03/01/17 07:15 Resp 23 03/01/17 07:20 BP 131/70 03/01/17 07:20 Pulse Ox 95 03/01/17 07:20 Ventilator Settings Ventilator Settings: Ventilator Settings, Last 8 Hours Ventilator Mode A/C Ventilator Mode A/C Ventilator Mode A/C Ventilator Mode A/C Ventilator Mode A/C Ventilator Mode A/C Ventilator Mode A/C Ventilator Mode A/C Ventilator Mode A/C Ventilator Mode A/C Ventilator Mode A/C Ventilator Mode A/C Ventilator Tidal Volume 450 Setting Ventilator Tidal Volume 450 Setting Ventilator Tidal Volume 450 Setting Ventilator Tidal Volume 450 Setting Ventilator Tidal Volume 450 Setting Ventilator Tidal Volume 450 Setting Ventilator Tidal Volume 450 Setting Ventilator Tidal Volume 450 Setting Ventilator Tidal Volume 450 Setting Ventilator Tidal Volume 450 Setting Ventilator Tidal Volume 450 Setting Ventilator Tidal Volume 450 Setting Ventilator Respiratory Rate 18 Setting Ventilator Respiratory Rate 18 Setting Ventilator Respiratory Rate 18 Setting Ventilator Respiratory Rate 18 Setting Ventilator Respiratory Rate 18 Setting Ventilator Respiratory Rate 18 Setting Ventilator Respiratory Rate 18 Setting Ventilator Respiratory Rate 18 Setting Ventilator Respiratory Rate 18 Setting Ventilator Respiratory Rate 18 Setting Ventilator Respiratory Rate 18 Setting Ventilator Respiratory Rate 18 Setting Actual Respiratory Rate 23 Actual Respiratory Rate 24 Actual Respiratory Rate 22 Actual Respiratory Rate 20 Actual Respiratory Rate 20 Actual Respiratory Rate 18 Actual Respiratory Rate 21 Actual Respiratory Rate 23 Actual Respiratory Rate 21 Actual Respiratory Rate 23 Actual Respiratory Rate 20 Positive End Expiratory 5 Pressure Positive End Expiratory 5 Pressure Positive End Expiratory 5 Pressure Positive End Expiratory 5 Pressure Positive End Expiratory 5 Pressure Positive End Expiratory 5 Pressure Positive End Expiratory 5 Pressure Positive End Expiratory 5 Pressure Positive End Expiratory 5 Pressure Positive End Expiratory 5 Pressure Positive End Expiratory 5 Pressure Positive End Expiratory 5 Pressure Peak Inspiratory Airway 25 Pressure Peak Inspiratory Airway 19 Pressure Peak Inspiratory Airway 19 Pressure Peak Inspiratory Airway 16 Pressure Peak Inspiratory Airway 20 Pressure Peak Inspiratory Airway 24 Pressure Peak Inspiratory Airway 22 Pressure Peak Inspiratory Airway 16 Pressure Peak Inspiratory Airway 21 Pressure Peak Inspiratory Airway 30 Pressure Peak Inspiratory Airway 30 Pressure Results - Laboratory Findings CBC and BMP: 03/01/17 03:00 03/01/17 03:00 ABG ABG pH 7.28 pH Units (7.32-7.45) L 03/01/17 04:40 ABG pCO2 68 mmHg (35-45) H 03/01/17 04:40 ABG pO2 81 mmHg (85-104) L 03/01/17 04:40 ABG O2 Saturation 94 % (95-98) L 03/01/17 04:40 PT/INR, D-dimer PT 13.7 Seconds (9.4-12.1) H 02/27/17 17:40 Abnormal lab findings: Abnormal lab results RBC 3.10 M/mcL (4.19-5.50) L 03/01/17 03:00 Hgb 8.5 g/dL (12.9-16.9) L 03/01/17 03:00 Hct 27.0 % (37.5-50.1) L 03/01/17 03:00 MCH 27.4 pg (28.0-33.3) L 03/01/17 03:00 MCHC 31.5 g/dL (31.6-35.5) L 03/01/17 03:00 RDW 16.9 % (11.5-14.5) H 03/01/17 03:00 Plt Count 121 K/mcL (140-400) L 03/01/17 03:00 Band Neutrophils % 8.0 % (0-4) H 02/28/17 16:00 Metamyelocytes % 2.0 % (0) H 02/28/17 16:00 Myelocytes % 4.0 % (0) H 02/28/17 16:00 Reactive Lymphocytes Present (Not Present) A 03/01/17 03:00 Smudge Cells Present (Not Present) A 03/01/17 03:00 Platelet Estimate Slight Decrease (Normal) L 03/01/17 03:00 Polychromasia 1+ (Not Present) A 02/28/17 16:00 Hypochromasia Present (Not Present) A 03/01/17 03:00 Anisocytosis 1+ (Not Present) A 02/28/17 16:00 PT 13.7 Seconds (9.4-12.1) H 02/27/17 17:40 ABG pH 7.28 pH Units (7.32-7.45) L 03/01/17 04:40 ABG pCO2 68 mmHg (35-45) H 03/01/17 04:40 ABG pO2 81 mmHg (85-104) L 03/01/17 04:40 ABG HCO3 32.0 mEQ/L (21-27) H 03/01/17 04:40 ABG Total CO2 34.1 mEq/L (20-26) H 03/01/17 04:40 ABG O2 Saturation 94 % (95-98) L 03/01/17 04:40 ABG Base Excess 4.1 mEq/L (-2.0 to 3.0) H 03/01/17 04:40 Potassium 5.2 mEq/L (3.5-4.5) H 03/01/17 03:00 Chloride 95 mEq/L (98-109) L 03/01/17 03:00 BUN 58 mg/dL (8-26) H D 03/01/17 03:00 Creatinine 4.97 mg/dL (0.72-1.25) H 03/01/17 03:00 Est GFR ( Amer) 14 (> 60) L 03/01/17 03:00 Est GFR (Non-Af Amer) 12 (> 60) L 03/01/17 03:00 Calcium 8.0 mg/dL (8.6-10.8) L 03/01/17 03:00 Ionized Calcium 0.94 mmol/L (1.15-1.35) L 02/28/17 16:00 Iron 43 mcg/dL (65-175) L 02/27/17 04:22 Transferrin 134 mg/dL (174-364) L 02/27/17 04:22 Ferritin 3147 ng/ml (22-275) H 02/27/17 04:22 Direct Bilirubin 0.6 mg/dL (0.0-0.5) H 02/28/17 03:18 AST 47 Units/L (5-34) H 02/28/17 03:18 Alkaline Phosphatase 135 Units/L (38-126) H 02/28/17 03:18 Troponin I 0.05 ng/mL (0-0.03) H* 02/27/17 17:40 Albumin 2.9 g/dL (3.5-5.0) L 02/28/17 03:18 Globulin 5.1 g/dL (2.4-3.5) H 02/28/17 03:18 Albumin/Globulin Ratio 0.6 (1.1-2.2) L 02/28/17 03:18 Triglycerides 158 mg/dL (< 150) H 02/26/17 04:28 VLDL Cholesterol, Calc 32 mg/dL (< 31) H 02/26/17 04:28 - Clinical Findings Intake & Output: Intake & Output 02/28/17 03/01/17 03/01/17 23:59 07:59 15:59 Intake Total 610 / 610 100 / 100 Output Total 3900 / 3900 75 / 75 Balance -3290 / -3290 25 / 25 Weight 115.5 kg Pulmonary Procedures - Arterial Line Size (Gauge): 20 Consult Discharge Plan - Plan Referrals: Chilo Lewis Jr, MD [Primary Care Provider] - (Possible back to [facility] ?) <Tico Swartz W - Last Filed: 03/01/17 12:36> Date of Encounter: 03/01/17 Objective PUL Vital signs: Last Vital Signs Temp 99.8 F H 03/01/17 07:15 Pulse 104 03/01/17 08:00 Resp 20 03/01/17 08:00 BP 132/73 03/01/17 08:00 Pulse Ox 95 03/01/17 08:00 Ventilator Settings Ventilator Settings: Ventilator Settings, Last 8 Hours Ventilator Mode PC Ventilator Mode A/C Ventilator Mode A/C Ventilator Mode A/C Ventilator Mode A/C Ventilator Mode A/C Ventilator Mode A/C Ventilator Mode A/C Ventilator Mode A/C Ventilator Mode A/C Ventilator Mode A/C Ventilator Mode A/C Ventilator Tidal Volume 450 Setting Ventilator Tidal Volume 450 Setting Ventilator Tidal Volume 450 Setting Ventilator Tidal Volume 450 Setting Ventilator Tidal Volume 450 Setting Ventilator Tidal Volume 450 Setting Ventilator Tidal Volume 450 Setting Ventilator Tidal Volume 450 Setting Ventilator Tidal Volume 450 Setting Ventilator Tidal Volume 450 Setting Ventilator Tidal Volume 450 Setting Ventilator Respiratory Rate 18 Setting Ventilator Respiratory Rate 18 Setting Ventilator Respiratory Rate 18 Setting Ventilator Respiratory Rate 18 Setting Ventilator Respiratory Rate 18 Setting Ventilator Respiratory Rate 18 Setting Ventilator Respiratory Rate 18 Setting Ventilator Respiratory Rate 18 Setting Ventilator Respiratory Rate 18 Setting Ventilator Respiratory Rate 18 Setting Ventilator Respiratory Rate 18 Setting Ventilator Respiratory Rate 18 Setting Actual Respiratory Rate 20 Actual Respiratory Rate 23 Actual Respiratory Rate 24 Actual Respiratory Rate 22 Actual Respiratory Rate 20 Actual Respiratory Rate 20 Actual Respiratory Rate 18 Actual Respiratory Rate 21 Actual Respiratory Rate 23 Actual Respiratory Rate 21 Actual Respiratory Rate 23 Positive End Expiratory 5 Pressure Positive End Expiratory 5 Pressure Positive End Expiratory 5 Pressure Positive End Expiratory 5 Pressure Positive End Expiratory 5 Pressure Positive End Expiratory 5 Pressure Positive End Expiratory 5 Pressure Positive End Expiratory 5 Pressure Positive End Expiratory 5 Pressure Positive End Expiratory 5 Pressure Positive End Expiratory 5 Pressure Positive End Expiratory 5 Pressure Peak Inspiratory Airway 39 Pressure Peak Inspiratory Airway 25 Pressure Peak Inspiratory Airway 19 Pressure Peak Inspiratory Airway 19 Pressure Peak Inspiratory Airway 16 Pressure Peak Inspiratory Airway 20 Pressure Peak Inspiratory Airway 24 Pressure Peak Inspiratory Airway 22 Pressure Peak Inspiratory Airway 16 Pressure Peak Inspiratory Airway 21 Pressure Peak Inspiratory Airway 30 Pressure Results - Laboratory Findings CBC and BMP: 03/01/17 03:00 03/01/17 03:00 ABG ABG pH 7.28 pH Units (7.32-7.45) L 03/01/17 04:40 ABG pCO2 68 mmHg (35-45) H 03/01/17 04:40 ABG pO2 81 mmHg (85-104) L 03/01/17 04:40 ABG O2 Saturation 94 % (95-98) L 03/01/17 04:40 PT/INR, D-dimer PT 13.7 Seconds (9.4-12.1) H 02/27/17 17:40 Abnormal lab findings: Abnormal lab results RBC 3.10 M/mcL (4.19-5.50) L 03/01/17 03:00 Hgb 8.5 g/dL (12.9-16.9) L 03/01/17 03:00 Hct 27.0 % (37.5-50.1) L 03/01/17 03:00 MCH 27.4 pg (28.0-33.3) L 03/01/17 03:00 MCHC 31.5 g/dL (31.6-35.5) L 03/01/17 03:00 RDW 16.9 % (11.5-14.5) H 03/01/17 03:00 Plt Count 121 K/mcL (140-400) L 03/01/17 03:00 Band Neutrophils % 8.0 % (0-4) H 02/28/17 16:00 Metamyelocytes % 2.0 % (0) H 02/28/17 16:00 Myelocytes % 4.0 % (0) H 02/28/17 16:00 Reactive Lymphocytes Present (Not Present) A 03/01/17 03:00 Smudge Cells Present (Not Present) A 03/01/17 03:00 Platelet Estimate Slight Decrease (Normal) L 03/01/17 03:00 Polychromasia 1+ (Not Present) A 02/28/17 16:00 Hypochromasia Present (Not Present) A 03/01/17 03:00 Anisocytosis 1+ (Not Present) A 02/28/17 16:00 PT 13.7 Seconds (9.4-12.1) H 02/27/17 17:40 ABG pH 7.28 pH Units (7.32-7.45) L 03/01/17 04:40 ABG pCO2 68 mmHg (35-45) H 03/01/17 04:40 ABG pO2 81 mmHg (85-104) L 03/01/17 04:40 ABG HCO3 32.0 mEQ/L (21-27) H 03/01/17 04:40 ABG Total CO2 34.1 mEq/L (20-26) H 03/01/17 04:40 ABG O2 Saturation 94 % (95-98) L 03/01/17 04:40 ABG Base Excess 4.1 mEq/L (-2.0 to 3.0) H 03/01/17 04:40 Potassium 5.2 mEq/L (3.5-4.5) H 03/01/17 03:00 Chloride 95 mEq/L (98-109) L 03/01/17 03:00 BUN 58 mg/dL (8-26) H D 03/01/17 03:00 Creatinine 4.97 mg/dL (0.72-1.25) H 03/01/17 03:00 Est GFR ( Amer) 14 (> 60) L 03/01/17 03:00 Est GFR (Non-Af Amer) 12 (> 60) L 03/01/17 03:00 Calcium 8.0 mg/dL (8.6-10.8) L 03/01/17 03:00 Ionized Calcium 0.94 mmol/L (1.15-1.35) L 02/28/17 16:00 Iron 43 mcg/dL (65-175) L 02/27/17 04:22 Transferrin 134 mg/dL (174-364) L 02/27/17 04:22 Ferritin 3147 ng/ml (22-275) H 02/27/17 04:22 Direct Bilirubin 0.6 mg/dL (0.0-0.5) H 02/28/17 03:18 AST 47 Units/L (5-34) H 02/28/17 03:18 Alkaline Phosphatase 135 Units/L (38-126) H 02/28/17 03:18 Troponin I 0.05 ng/mL (0-0.03) H* 02/27/17 17:40 Albumin 2.9 g/dL (3.5-5.0) L 02/28/17 03:18 Globulin 5.1 g/dL (2.4-3.5) H 02/28/17 03:18 Albumin/Globulin Ratio 0.6 (1.1-2.2) L 02/28/17 03:18 Triglycerides 158 mg/dL (< 150) H 02/26/17 04:28 VLDL Cholesterol, Calc 32 mg/dL (< 31) H 02/26/17 04:28 - Clinical Findings Intake & Output: Intake & Output 02/28/17 03/01/17 03/01/17 23:59 07:59 15:59 Intake Total 610 / 610 100 / 100 Output Total 3900 / 3900 75 / 75 Balance -3290 / -3290 25 / 25 Weight 115.5 kg - Attending Attestation I examined this patient and my medical decision-making was reviewed with the RN CARDIOVASCULAR ICU/PA/Advanced Practice Nurse/Resident Physician. I agree with the documented findings, disposition and treatment plan as described except to the extent set forth below. Patient seen and examined at bedside Labs, radiology, chart personally reviewed. All lines examined without evidence of infection. Neuropsych: Appears to have anoxic brain injury status post CPR slightly more neurologic function today and is able to breathe over the event repeat head CT negative for worsening or impending herniation EEG was nonspecific and had much artifact formal consult to neurology has been made. Patient remains off sedation and has been rewarmed per protocol Pulm: Acute hypoxic respiratory failure yesterday saw dramatic improvement with ARDS physiology now on minimal vent support but still unstable for spontaneous breathing trial we will reassess daily. Cards: Status post cardiac or possibly secondary to arrhythmia patient has stable blood pressure but increasingly tachycardic we will titrate his beta parminder for this FEN-GI: Nothing by mouth for now nutrition consult can likely start enteral nutrition Renal: ESRD post dialysis yesterday electrolytes are acceptable will continue to be replaced per protocol ID: No evidence of acute infection antimicrobials been stopped Heme/Onc: DVT prophylaxis given H&H and platelets are stable Endo: Glucose monitor Integ/MSK: Skin care per routine ICU protocol CODE: Full code; I have updated the patient's daughter Charley explained the gravity of the situation and suspected that he will have severe neurologic impairment and will likely be unable to care for himself in the future although full prognostication is impossible at this time. I have consulted palliative care service and encouraged the family hours to come to the hospital for formal discussion regarding goals of care including CODE STATUS
--- NOTE | 2017-03-01 08:26 | Nephrology Progress Note ---
Date of Encounter: 03/01/17 Time of Encounter: 08:24 - Assessment and Plan (1) ESRD on dialysis Current Visit: Yes Status: Chronic Patient received dialysis yesterday. Clinically he has anoxic brain injury related to a cardiac arrest. We will continue to follow. We will continue to provide dialysis on a regular basis. Prognosis appears poor. (2) Atrial fibrillation Current Visit: No Status: Chronic Qualifiers: Atrial fibrillation type: paroxysmal Qualified Code(s): I48.0 - Paroxysmal atrial fibrillation (3) Sepsis due to Klebsiella Current Visit: Yes Status: Acute Subjective Interval history: Recent events noted. Patient is now intubated in the ICU. He apparently has suffered anoxic brain injury following a cardiac arrest. He did receive dialysis yesterday. Vital signs are stable. Objective - Vital Signs Vital signs: Vital Signs Temp Pulse Resp BP Pulse Ox 03/01/17 07:20 23 131/70 95 03/01/17 07:15 99.8 F H 104 24 131/70 03/01/17 06:18 22 137/71 94 03/01/17 06:00 100 20 108/57 94 03/01/17 05:00 84 20 133/75 93 03/01/17 04:48 18 143/75 95 03/01/17 04:00 96 22 137/85 93 03/01/17 03:02 98.6 F 99 23 139/70 94 03/01/17 02:09 21 139/70 94 03/01/17 02:06 103 23 140/78 94 03/01/17 01:00 98.6 F 93 20 135/71 94 03/01/17 00:00 98.3 F 92 20 121/71 93 02/28/17 23:50 18 125/73 93 02/28/17 23:04 97.7 F 87 19 111/57 96 02/28/17 22:56 92 02/28/17 22:06 21 111/57 98 02/28/17 22:00 95.8 F L 92 25 130/76 100 02/28/17 21:00 95.7 F L 92 24 133/89 100 02/28/17 20:48 18 133/89 99 02/28/17 20:00 95.8 F L 85 23 132/84 100 02/28/17 19:12 95.8 F L 18 118/79 02/28/17 19:00 95.8 F L 107 21 108/78 100 02/28/17 18:45 126/81 02/28/17 18:30 145/87 02/28/17 18:15 196/95 02/28/17 18:00 96.3 F L 112 18 140/76 100 02/28/17 17:45 149/77 02/28/17 17:30 96.3 F L 110 18 142/72 100 02/28/17 17:16 18 140/80 100 02/28/17 17:15 140/80 02/28/17 17:00 96.4 F L 79 18 137/76 100 02/28/17 16:45 140/84 02/28/17 16:31 96.1 F L 80 18 152/80 100 02/28/17 16:30 152/80 02/28/17 16:15 146/81 02/28/17 16:00 96.6 F L 76 18 152/88 100 02/28/17 15:10 21 152/88 02/28/17 15:05 35.7 F L 78 21 152/88 02/28/17 14:15 96.6 F L 75 18 138/67 100 02/28/17 13:45 96.1 F L 73 26 136/66 100 02/28/17 13:30 26 152/88 02/28/17 13:15 95.7 F L 71 26 132/73 02/28/17 12:45 95 F L 73 26 159/85 02/28/17 12:15 94.8 F L 71 26 142/73 02/28/17 11:45 93.9 F L 67 26 145/79 02/28/17 11:34 26 145/79 02/28/17 11:13 93.9 F L 62 26 126/71 100 02/28/17 10:45 93.2 F L 61 26 133/72 02/28/17 10:15 92.8 F L 61 24 157/86 02/28/17 09:45 92.5 F L 67 26 176/87 100 02/28/17 09:20 30 163/83 100 02/28/17 09:15 92.3 F L 68 30 163/83 94 02/28/17 08:45 91.9 F L 61 28 135/76 100 Intake and Output 02/28/17 03/01/17 03/01/17 23:59 07:59 15:59 Intake Total 610 / 610 100 / 100 Output Total 3900 / 3900 75 / 75 Balance -3290 / -3290 25 / 25 Intake: IV Fluids 100 / 100 Zosyn 3.375 GM In 100 / 100 Dextrose 5% (Minibag+) 100 ML 100 ML @ 25 mls/hr IVPB Q12H [facility] Rx#: [id number] Oral 0 / 0 Tube Feeding 10 / 10 Intake, Rinseback and 600 / 600 Flushes Output: Urine 0 / 0 Total Dialysis (HD) 3600 / 3600 Output Rectal Tube 100 / 100 75 / 75 Gastric Drainage 200 / 200 Other: Weight 115.5 kg Blood Glucose* 83 84 Hemodialysis Net Fluid 3000 Removed (mL) - General Appearance Exam: Patient is on the ventilator. He is poorly responsive. Heart irregular rate and rhythm. Lungs diminished breath sounds. Abdomen is benign and there is no guarding no rigidity. There is minimal lower extremity swelling. There is a functioning AV fistula in the right upper extremity. - Lab 03/01/17 03:00 03/01/17 03:00 Most recent lab results ABG pH 7.28 pH Units (7.32-7.45) L 03/01/17 04:40 ABG pCO2 68 mmHg (35-45) H 03/01/17 04:40 ABG pO2 81 mmHg (85-104) L 03/01/17 04:40 ABG HCO3 32.0 mEQ/L (21-27) H 03/01/17 04:40 ABG O2 Saturation 94 % (95-98) L 03/01/17 04:40 Calcium 8.0 mg/dL (8.6-10.8) L 03/01/17 03:00 Magnesium 1.8 mg/dL (1.6-2.6) 02/28/17 16:00 Consult Discharge Plan - Plan Referrals: Chilo Lewis Jr, MD [Primary Care Provider] - (Possible back to [facility] ?)
[2017-03-01] MEDS ORDERED: Aminoglycoside Consult 1 EACH MC ONE (08:29)
[2017-03-01] MEDS ORDERED: Acetaminophen 325 MG TABLET PO PRN (08:46)
--- NOTE | 2017-03-01 11:20 | Palliative - Consult Note ---
Date of Encounter: 03/01/17 Time of Encounter: 11:20 - Assessment and Plan (1) Counseling regarding advanced care planning and goals of care Current Visit: Yes Status: Acute Assessment and plan: Dr. Swartz just spoke with daughter Charley via telephone and recommended family come in to hospital for goals of care discussion. Asked pt primary nurse to inform me if they arrive. (2) Acute metabolic encephalopathy Current Visit: Yes Status: Acute (3) End stage renal disease Current Visit: Yes Status: Acute Assessment and plan: Patient receives care from Dr. Evans Rodriguez for his renal disease. He is following pt here in hospital. Monitor (4) Cardiopulmonary arrest Current Visit: No Status: Resolved Assessment and plan: Appears to have anoxic brain injury s/p arrest. Will follow closely Palliative-CN HPI - Data of Consult Consult date: 03/01/17 Requesting Physician: Donnie Cobos DO Primary Care Provider: Chilo Lewis Jr, MD - Consult Narrative History of present illness: Mr. Hernandez is a 71 year old male who has end stage renal disease and was admitted with altered mental status. Patient had been in hospital and signed out against medical advice, he reportedly had positive blood cultures and did return to hospital. During dialysis, he experienced cardiac arrest and had ROSC after ACLS. Hypothermic protocol was initiated. Other medical history includes: COPD, HTN, NC, diabetes, aortic aneurysm. Upon my visit, there is no family present. He has spontaneous eye opening, does not follow any commands. There was some report during the night that pt neuro status might be improving, but I do not see anything purposeful at this time. I cannot find any advanced directives on file here at the hospital, and none were documented during admission. No family is present at this time. CC: Donnie Cobos DO Past Med Surg Social Fam HX - Past Medical History Medical history: aortic aneurysm, diabetes, dialysis, hyperlipidemia, hypertension, myocardial infarction, renal disease, other Psychiatric history: anxiety, depression - Past Surgical History Surgical History: angioplasty/stent, cholecystectomy, other - Social History Smoking Status: Current every day smoker Packs per day: 1 1/2 PPD Smokeless Tobacco Status: No Alcohol use: rarely Drug use: none - Family History Mother History Unknown: Yes Hx Family Cardiac Disorders: Yes (HTN) Father History Unknown: Yes Adopted: No Living Status: Hx Family Cardiac Disorders: Yes (HTN) Hx Family Respiratory Disorders: No Hx Family Cancer: Yes Hx Family GI Disorders: No Hx Family Endocrine Disorder: No Hx Family Neuromuscular Disorders: No Hx Family Neurologic Disorders: No Hx Family HEENT Disorders: No Hx Family Autoimmune Disorders: No Medications and Allergies Carvedilol [Coreg] 25 mg PO BID 09/08/15 [History] cloNIDine HCl [CloNIDine HCl] 0.1 mg PO QAM 09/08/15 [History] Albuterol Neb [AccuNeb] 1.25 mg IH Q4H PRN 09/21/16 [History] Budesonide/Formoterol 160/4.5 [Symbicort 160/4.5] 2 puff IH BIDR 09/22/16 [ History] Cinacalcet [Sensipar] 30 mg PO DAILY 09/22/16 [History] Omeprazole [PriLOSEC] 20 mg PO DAILY 09/22/16 [History] amLODIPine [Norvasc] 5 mg PO DAILY 09/22/16 [History] Aspirin 81 mg PO DAILY #0 tab.chew 09/28/16 [Rx] Oxycodone HCl 15 mg PO Q6H PRN #20 tablet 02/03/17 [Rx] Lactose-Reduced Food [Boost] 237 ml PO DAILY 02/21/17 [History] Docusate [Colace] 100 mg PO BID PRN #0 capsule 02/24/17 [Rx] Losartan [Cozaar] 25 mg PO BID #60 tablet 02/24/17 [Rx] Allergies iodine Allergy (Verified 02/26/17 11:13) Rash rofecoxib [From Vioxx] Allergy (Verified 02/21/17 06:52) Swelling of Lip/Tongue/Throat ROS unobtainable: due to mental status Palliative Care-Exam - Constitutional Vitals: Temp Pulse Resp BP Pulse Ox 99.8 F H 91 22 124/69 96 03/01/17 07:15 03/01/17 09:00 03/01/17 09:13 03/01/17 09:13 03/01/17 09:13 General appearance: Present: no acute distress - Head Head Exam: Present: normal inspection, normocephalic - Eye Eye exam: Present: normal appearance, PERRL - Respiratory Respiratory exam: Present: decreased breath sounds, CTAB - Cardiovascular Cardiovascular exam: Present: +S1, +S2 - GI/Abdominal Exam GI/Abdominal exam: Present: diminished bowel sounds, distended additional comments: rectal tube in place with small amount liquid stool - Extremities Exam Extremities exam: Present: normal capillary refill, normal inspection Additional comments: AV fistula rt forearm - Neurological Exam Additional comments: Patient with spontaneous eye opening. Does not follow commands. No purposeful movement. - Skin Skin exam: Present: dry, normal color, warm Internal Medicine - CN: Reslt - Labs CBC & Chem 7: 03/01/17 03:00 03/01/17 03:00 Labs: Short CBC 02/28/17 03/01/17 Range/Units 16:00 03:00 WBC 5.4 7.8 (4.3-11.1) K/mcL Hgb 8.0 L 8.5 L (12.9-16.9) g/dL Hct 25.3 L 27.0 L (37.5-50.1) % Plt Count 112 L 121 L (140-400) K/mcL Neutrophils # 4.0 6.0 (1.6-8.9) K/mcL BMP 02/28/17 03/01/17 16:00 03:00 Sodium 135 L 136 Potassium 6.0 H 5.2 H Chloride 94 L 95 L Carbon Dioxide 25 28 BUN 91 H 58 H D Creatinine 6.65 H 4.97 H Glucose 83 77 Calcium 7.8 L 8.0 L - ABG Interpretation ABG results: ABG ABG pH 7.28 pH Units (7.32-7.45) L 03/01/17 04:40 ABG pCO2 68 mmHg (35-45) H 03/01/17 04:40 ABG pO2 81 mmHg (85-104) L 03/01/17 04:40 ABG O2 Saturation 94 % (95-98) L 03/01/17 04:40 PT/INR, D-dimer PT 13.7 Seconds (9.4-12.1) H 02/27/17 17:40 - Impressions Impressions Head CT 02/28/17 14:01 IMPRESSION: No evidence of acute intracranial abnormality with no significant change in the appearance of the head CT when compared to 02/27/2017. D/ / 02/28/2017 15:18:17 Jabier Fink MD / [facility] Interpreting Provider: Jabier Fink MD Consult Discharge Plan - Plan Referrals: Chilo Lewis Jr, MD [Primary Care Provider] - (Possible back to [facility] ?) Palliative Quality Palliative Quality: Screen for Code Status: NA (Patient not responsive on vent) , Screen for Goals of Care: NA, Screen for Pain: NA, If Pain Regimen Started, Initiate Bowel Regimen: NA, Screen for Nausea/Vomitting: NA
[2017-03-01 14:09] LABS: Amphetamines NEGATIVE ng/mL (Cutoff 30); Barbiturates NEGATIVE ng/mL (Cutoff 75); Benzodiazepines NEGATIVE ng/mL (Cutoff 75); Cocaine NEGATIVE ng/mL (Cutoff 30); Methadone NEGATIVE ng/mL (Cutoff 40); Methamphetamines NEGATIVE ng/mL (Cutoff 30); Opiates NEGATIVE ng/mL (Cutoff 30); Phencyclidine NEGATIVE ng/mL (Cutoff 15)
--- NOTE | 2017-03-01 14:20 | Electrocardiograph Report ---
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
--- NOTE | 2017-03-01 14:59 | Infectious Disease Progress No ---
Date of Encounter: 03/01/17 Time of Encounter: 14:56 - Assessment and Plan (1) Bacteremia due to Klebsiella pneumoniae Current Visit: Yes Status: Acute Blood cultures drawn 02/24/17 positive 1/2 sets for K. pneumoniae. Source unclear --> true infection vs. contaminant. Repeat blood cultures drawn 02/25/17 1/1 set and 02/27/1708/28 set are NGTD. Antibiotics discontinued per the primary team. No further recommendations from the ID team. Will sign off. Please re-consult if needed. (2) Acute respiratory failure Current Visit: Yes Status: Acute Status post cardiac arrest 02/27/17. The patient has been off sedation and continues to be unresponsive with no purposeful movement. CT head negative. EEG abnormal indicating possible anoxic brain injury. Qualifiers: Respiratory failure complication: hypoxia Qualified Code(s): J96.01 - Acute respiratory failure with hypoxia (3) End stage renal disease Current Visit: Yes Status: Acute On HD. Nephrology consulted and following. - Subjective Interval history: Patient seen and examined. No acute events noted overnight. Patient remains intubated and on the ventilator. No sedation at this time. Patient remains unresponsive with no purposeful movement. Antibiotics discontinued by the primary team. EEG shows possible anoxic brain injury. Palliative care team has been consulted to discuss goals of care with the family. Infect Dis PN-Objective Data - Labs CBC & Chem 7: 03/01/17 03:00 03/01/17 03:00 Labs: Laboratory Results - last 24 hr 02/28/17 02/28/17 02/28/17 16:00 16:00 16:00 WBC 5.4 RBC 2.93 L Hgb 8.0 L Hct 25.3 L MCV 86.3 MCH 27.3 L MCHC 31.6 RDW 16.9 H Plt Count 112 L MPV 10.6 Immature Gran % Seg Neutrophils % 66.0 Band Neutrophils % 8.0 H Lymphocytes % 12.0 Monocytes % 8.0 Eosinophils % Basophils % Metamyelocytes % 2.0 H Myelocytes % 4.0 H Neutrophils # 4.0 Lymphocytes # 0.7 Monocytes # 0.4 Eosinophils # Basophils # Reactive Lymphocytes Present A Smudge Cells Platelet Estimate Polychromasia 1+ A Hypochromasia Anisocytosis 1+ A ABG pH ABG pCO2 ABG pO2 ABG HCO3 ABG Total CO2 ABG O2 Saturation ABG Base Excess Blood Gas Modality Inspired O2 Sodium 135 L Potassium 6.0 H Chloride 94 L Carbon Dioxide 25 BUN 91 H Creatinine 6.65 H Est GFR ( Amer) 10 L Est GFR (Non-Af Amer) 8 L BUN/Creatinine Ratio 14 Glucose 83 POC Glucose Calculated Osmolality 307 H Calcium 7.8 L Ionized Calcium 0.94 L Magnesium 1.8 Vancomycin Trough 02/28/17 02/28/17 02/28/17 18:24 19:45 22:00 WBC RBC Hgb Hct MCV MCH MCHC RDW Plt Count MPV Immature Gran % Seg Neutrophils % Band Neutrophils % Lymphocytes % Monocytes % Eosinophils % Basophils % Metamyelocytes % Myelocytes % Neutrophils # Lymphocytes # Monocytes # Eosinophils # Basophils # Reactive Lymphocytes Smudge Cells Platelet Estimate Polychromasia Hypochromasia Anisocytosis ABG pH 7.26 L ABG pCO2 70 H* ABG pO2 110 H ABG HCO3 31.4 H ABG Total CO2 33.5 H ABG O2 Saturation 98 ABG Base Excess 3.0 Blood Gas Modality ASSIST CONTROL Inspired O2 60 Sodium Potassium Chloride Carbon Dioxide BUN Creatinine Est GFR ( Amer) Est GFR (Non-Af Amer) BUN/Creatinine Ratio Glucose POC Glucose 77 83 Calculated Osmolality Calcium Ionized Calcium Magnesium Vancomycin Trough 03/01/17 03/01/17 03/01/17 03:00 03:00 03:00 WBC 7.8 RBC 3.10 L Hgb 8.5 L Hct 27.0 L MCV 87.1 MCH 27.4 L MCHC 31.5 L RDW 16.9 H Plt Count 121 L MPV 10.2 Immature Gran % 1.8 Seg Neutrophils % 76.3 Band Neutrophils % Lymphocytes % 11.8 Monocytes % 9.9 Eosinophils % 0.1 Basophils % 0.1 Metamyelocytes % Myelocytes % Neutrophils # 6.0 Lymphocytes # 0.9 Monocytes # 0.8 Eosinophils # 0.0 Basophils # 0.0 Reactive Lymphocytes Present A Smudge Cells Present A Platelet Estimate Slight Decrease L Polychromasia Hypochromasia Present A Anisocytosis ABG pH ABG pCO2 ABG pO2 ABG HCO3 ABG Total CO2 ABG O2 Saturation ABG Base Excess Blood Gas Modality Inspired O2 Sodium 136 Potassium 5.2 H Chloride 95 L Carbon Dioxide 28 BUN 58 H D Creatinine 4.97 H Est GFR ( Amer) 14 L Est GFR (Non-Af Amer) 12 L BUN/Creatinine Ratio 12 Glucose 77 POC Glucose Calculated Osmolality 297 Calcium 8.0 L Ionized Calcium Magnesium Vancomycin Trough 17.5 03/01/17 03/01/17 03/01/17 04:40 07:41 11:37 WBC RBC Hgb Hct MCV MCH MCHC RDW Plt Count MPV Immature Gran % Seg Neutrophils % Band Neutrophils % Lymphocytes % Monocytes % Eosinophils % Basophils % Metamyelocytes % Myelocytes % Neutrophils # Lymphocytes # Monocytes # Eosinophils # Basophils # Reactive Lymphocytes Smudge Cells Platelet Estimate Polychromasia Hypochromasia Anisocytosis ABG pH 7.28 L ABG pCO2 68 H ABG pO2 81 L ABG HCO3 32.0 H ABG Total CO2 34.1 H ABG O2 Saturation 94 L ABG Base Excess 4.1 H Blood Gas Modality ASSIST CONTROL Inspired O2 50 Sodium Potassium Chloride Carbon Dioxide BUN Creatinine Est GFR ( Amer) Est GFR (Non-Af Amer) BUN/Creatinine Ratio Glucose POC Glucose 84 102 H Calculated Osmolality Calcium Ionized Calcium Magnesium Vancomycin Trough Cultures: Cultures 02/27/17 04:22 Blood Culture - Preliminary Peripheral Venipuncture No growth. 02/25/17 22:12 Blood Culture - Preliminary Peripheral Venipuncture No growth. 02/25/17 21:50 Sputum Culture - Final Sputum - Impressions Impressions Head CT 02/28/17 14:01 IMPRESSION: No evidence of acute intracranial abnormality with no significant change in the appearance of the head CT when compared to 02/27/2017. D/ : / 02/28/2017 15:18:17 [facility] Inter[facility] Provider: Jabier Fink MD Exam - Constitutional Vitals: Temp Pulse Resp BP Pulse Ox 98.6 F 89 22 145/79 96 03/01/17 12:00 03/01/17 14:00 03/01/17 14:00 03/01/17 14:00 03/01/17 14:00 General appearance: average body habitus, no acute distress, no febrile - Head Head exam: Present: atraumatic, normal inspection, normocephalic - Eye Eye exam: Present: normal appearance Pupils: Present: fixed - ENT ENT exam: Present: mucous membranes dry - Neck Neck exam: Present: normal inspection - Respiratory Respiratory exam: Present: rales (Throughout). Absent: respiratory distress Additional comments: O2 via the ventilator. - Cardiovascular Cardiovascular exam: Present: RRR, +S1, +S2 - GI/Abdominal GI/Abdominal exam: Present: normal bowel sounds, soft. Absent: distended, tenderness Additional comments: Rectal tube noted with small amount of brown liquid stool noted in the collection bag. - Extremities Exam Extremities exam: Present: pedal edema (1+ BLE). Absent: joint swelling, tenderness Additional comments: Right triple lumen CVC noted with transparent dressing C/D/I. AV fistula noted to the RUE +/+/ - Neurological Exam Neurological exam: Present: altered Additional comments: Unresponsive. No purposeful movement. Does not follow commands or withdraw from painful stimuli. GCS 3. - Skin Skin exam: Present: dry, intact, normal color, warm Consult Discharge Plan - Plan Referrals: Chilo Lewis Jr, MD [Primary Care Provider] - (Possible back to [facility] ?)
--- NOTE | 2017-03-01 15:14 | Event Note ---
Date of Encounter: 03/01/17 Time of Encounter: 15:40 Meeting with pt son, daughter, grandson, ex- re: goals of care. Dr. Swartz in and updated on clinical status. They are awaiting neurology input. 1500 - Dr. Franklyn Ramirez present in ICU to assess pt and discuss findings and prognosis with family. 1530 - called by family to come and discuss code status decision. Family very emotional - decided no further CPR/Defib for cardiac arrest. Code status changed to DNRCC-Arrest. Family aware that there will most likely be more decisions to be made if neurological status does not improve. Will continue to follow.
--- NOTE | 2017-03-01 15:53 | Neurology - Consult Note ---
Date of Encounter: 03/01/17 Time of Encounter: 15:47 Assessment and Plan (1) Anoxic brain injury Current Visit: Yes Status: Acute Unfortunately I believe this gentleman has indeed suffered anoxic brain injury. He is not however brain-. His brainstem reflexes remain all intact for the most part. However I see no evidence of higher cortical function. Generally, if the prognosis were going to be good when expect to see improvement over the first 24-48 hrs. Unfortunately in this case we have not. Even if he survives this event, he is likely to have significant cognitive, as well as motor impairment. He may possibly stabilize in a persistent vegetative state, or perhaps akinetic mutism. I did share my thoughts with the family and answered all questions. However given the scenario would think that his prognosis for meaningful recovery is poor. I will reevaluate him at your request. History of Present Illness HPI: Mr. Hernandez is a 71 year old male who was seen for neurologic consultation secondary to unresponsiveness. This gentleman was admitted to [facility] after witnessed episode of loss of consciousness. This gentleman does have a history of multiple chronic illnesses including recurrent admissions to the hospital for hypertensive crisis coronary artery disease, myocardial infarction atrial fibrillation diabetes mellitus, congestive heart failure, COPD. He has had several previous episodes of this nature where he loses consciousness. He is currently intubated. Apparently after he lost consciousness he was coded for 11 minutes or so. He has been unresponsive since admission. CT scan of the head revealed chronic ischemic white matter changes as well as cortical atrophy. EEG revealed low voltage, and also was heavily leading with artifact. However it was no evidence of seizure activity. Severe generalized encephalopathy was my interpretation. Past Med Surg Social Fam HX - Past Medical History Medical history: aortic aneurysm, diabetes, dialysis, hyperlipidemia, hypertension, myocardial infarction, renal disease, other Psychiatric history: anxiety, depression - Past Surgical History Surgical History: angioplasty/stent, cholecystectomy, other - Social History Smoking Status: Current every day smoker Packs per day: 1 1/2 PPD Smokeless Tobacco Status: No Alcohol use: rarely Drug use: none - Family History Mother History Unknown: Yes Hx Family Cardiac Disorders: Yes (HTN) Father History Unknown: Yes Adopted: No Living Status: Hx Family Cardiac Disorders: Yes (HTN) Hx Family Respiratory Disorders: No Hx Family Cancer: Yes Hx Family GI Disorders: No Hx Family Endocrine Disorder: No Hx Family Neuromuscular Disorders: No Hx Family Neurologic Disorders: No Hx Family HEENT Disorders: No Hx Family Autoimmune Disorders: No Medications and Allergies Carvedilol [Coreg] 25 mg PO BID 09/08/15 [History] cloNIDine HCl [CloNIDine HCl] 0.1 mg PO QAM 09/08/15 [History] Albuterol Neb [AccuNeb] 1.25 mg IH Q4H PRN 09/21/16 [History] Budesonide/Formoterol 160/4.5 [Symbicort 160/4.5] 2 puff IH BIDR 09/22/16 [ History] Cinacalcet [Sensipar] 30 mg PO DAILY 09/22/16 [History] Omeprazole [PriLOSEC] 20 mg PO DAILY 09/22/16 [History] amLODIPine [Norvasc] 5 mg PO DAILY 09/22/16 [History] Aspirin 81 mg PO DAILY #0 tab.chew 09/28/16 [Rx] Oxycodone HCl 15 mg PO Q6H PRN #20 tablet 02/03/17 [Rx] Lactose-Reduced Food [Boost] 237 ml PO DAILY 02/21/17 [History] Docusate [Colace] 100 mg PO BID PRN #0 capsule 02/24/17 [Rx] Losartan [Cozaar] 25 mg PO BID #60 tablet 02/24/17 [Rx] Allergies iodine Allergy (Verified 02/26/17 11:13) Rash rofecoxib [From Vioxx] Allergy (Verified 02/21/17 06:52) Swelling of Lip/Tongue/Throat ROS unobtainable: due to mental status All Systems: A 10-system review of systems was performed and is negative for pertinent findings except as documented above in the HPI. Physical Examination - Vital Signs Vital Signs: Initial Vital Signs Temp Pulse Resp BP Pulse Ox 98.5 F 106 18 115/74 98 02/25/17 20:47 02/25/17 20:47 02/25/17 20:47 02/25/17 20:47 02/25/17 20:47 - Exam Exam: Neurologic examination is performed and finds the following: Cerebral functions-he does open his eyes to tactile stimuli, however he does not fixate. He does not follow commands, he does not withdraw to noxious stim. He does not attempt to talk on the ventilator. No posturing is present. I see no evidence of purposeful activity. Cranial nerves-pupils are equal and minimally reactive at about 4 mm, blink reflexes are intact. Doll's eyes are intact. He is assisting the ventilator. Motor exam finds no involuntary movements identified. He has flaccid tone of all 4 extremities. Deep tendon reflexes-absent throughout. No Babinski, no ankle clonus present. Cerebellar exam finds no nystagmus or opsoclonus. Results - Laboratory Findings CBC and BMP: 03/01/17 03:00 03/01/17 03:00 Abnormal lab findings: Abnormal lab results RBC 3.10 M/mcL (4.19-5.50) L 03/01/17 03:00 Hgb 8.5 g/dL (12.9-16.9) L 03/01/17 03:00 Hct 27.0 % (37.5-50.1) L 03/01/17 03:00 MCH 27.4 pg (28.0-33.3) L 03/01/17 03:00 MCHC 31.5 g/dL (31.6-35.5) L 03/01/17 03:00 RDW 16.9 % (11.5-14.5) H 03/01/17 03:00 Plt Count 121 K/mcL (140-400) L 03/01/17 03:00 Band Neutrophils % 8.0 % (0-4) H 02/28/17 16:00 Metamyelocytes % 2.0 % (0) H 02/28/17 16:00 Myelocytes % 4.0 % (0) H 02/28/17 16:00 Reactive Lymphocytes Present (Not Present) A 03/01/17 03:00 Smudge Cells Present (Not Present) A 03/01/17 03:00 Platelet Estimate Slight Decrease (Normal) L 03/01/17 03:00 Polychromasia 1+ (Not Present) A 02/28/17 16:00 Hypochromasia Present (Not Present) A 03/01/17 03:00 Anisocytosis 1+ (Not Present) A 02/28/17 16:00 PT 13.7 Seconds (9.4-12.1) H 02/27/17 17:40 ABG pH 7.28 pH Units (7.32-7.45) L 03/01/17 04:40 ABG pCO2 68 mmHg (35-45) H 03/01/17 04:40 ABG pO2 81 mmHg (85-104) L 03/01/17 04:40 ABG HCO3 32.0 mEQ/L (21-27) H 03/01/17 04:40 ABG Total CO2 34.1 mEq/L (20-26) H 03/01/17 04:40 ABG O2 Saturation 94 % (95-98) L 03/01/17 04:40 ABG Base Excess 4.1 mEq/L (-2.0 to 3.0) H 03/01/17 04:40 Potassium 5.2 mEq/L (3.5-4.5) H 03/01/17 03:00 Chloride 95 mEq/L (98-109) L 03/01/17 03:00 BUN 58 mg/dL (8-26) H D 03/01/17 03:00 Creatinine 4.97 mg/dL (0.72-1.25) H 03/01/17 03:00 Est GFR ( Amer) 14 (> 60) L 03/01/17 03:00 Est GFR (Non-Af Amer) 12 (> 60) L 03/01/17 03:00 POC Glucose 102 (58-89) H 03/01/17 11:37 Calcium 8.0 mg/dL (8.6-10.8) L 03/01/17 03:00 Ionized Calcium 0.94 mmol/L (1.15-1.35) L 02/28/17 16:00 Iron 43 mcg/dL (65-175) L 02/27/17 04:22 Transferrin 134 mg/dL (174-364) L 02/27/17 04:22 Ferritin 3147 ng/ml (22-275) H 02/27/17 04:22 Direct Bilirubin 0.6 mg/dL (0.0-0.5) H 02/28/17 03:18 AST 47 Units/L (5-34) H 02/28/17 03:18 Alkaline Phosphatase 135 Units/L (38-126) H 02/28/17 03:18 Troponin I 0.05 ng/mL (0-0.03) H* 02/27/17 17:40 Albumin 2.9 g/dL (3.5-5.0) L 02/28/17 03:18 Globulin 5.1 g/dL (2.4-3.5) H 02/28/17 03:18 Albumin/Globulin Ratio 0.6 (1.1-2.2) L 02/28/17 03:18 Triglycerides 158 mg/dL (< 150) H 02/26/17 04:28 VLDL Cholesterol, Calc 32 mg/dL (< 31) H 02/26/17 04:28 Consult Discharge Plan - Plan Referrals: Chilo Lewis Jr, MD [Primary Care Provider] - (Possible back to [facility] ?)
[2017-03-01] MEDS ORDERED: Dexmedetomidine HCl 400 MCG/100 ML MLS IVC SCH (16:45)
[2017-03-01] MEDS: Dexmedetomidine HCl 400 MCG/100 ML MLS IVC SCH (18:40)
[2017-03-02] MEDS: Lacri-Lube 3.5 GM TUBE BOTH EYES SCH ×7 (00:48→23:53)
[2017-03-02] MEDS: Ipratropium/Albuterol Neb 3 ML IH SCH ×6 (03:47→23:24)
[2017-03-02 04:45] LABS: Basophils % 0.2 %; Eosinophils % 0.1 %; Hemoglobin 7.9 g/dL (12.9-16.9); Immature Granulocytes % 2.7 % (0-4); Lymphocytes # 1.9 K/mcL (0.6-4.6); Lymphocytes % 21.8 %; Mean Corpuscular HGB Conc 32.9 g/dL (31.6-35.5); Mean Corpuscular Hemoglobin 28.1 pg (28.0-33.3); Mean Corpuscular Volume 85.4 fL (83.0-100.0); Mean Platelet Volume 11.3 fL (9.4-12.4); Monocytes # 0.7 K/mcL (0.0-1.3); Monocytes % 7.9 %; Neutrophils # 5.7 K/mcL (1.6-8.9); Nucleated Red Blood Cells 0.4 /100 WBC (0); Platelet Count 149 K/mcL (140-400); Red Blood Count 2.81 M/mcL (4.19-5.50); Red Cell Distribution Width 17.1 % (11.5-14.5); Segmented Neutrophils % 67.3 %
[2017-03-02 04:51] LABS: Ionized Calcium 0.97 mmol/L (1.15-1.35)
[2017-03-02 05:06] LABS: Magnesium 2.2 mg/dL (1.6-2.6); Phosphorous 7.6 mg/dL (2.3-4.7)
[2017-03-02] MEDS: *HR* Heparin 5,000 UNIT/ML VIAL SQ SCH ×3 (05:08→22:29)
[2017-03-02] MEDS: Dexmedetomidine HCl 400 MCG/100 ML MLS IVC SCH ×4 (05:09→22:29)
[2017-03-02 05:12] LABS: Potassium 5.6 mEq/L (3.5-4.5)
[2017-03-02 05:23] LABS: ABG HCO3 29.5 mEQ/L (21-27); ABG Oxygen Saturation 96 % (95-98); ABG PCO2 56 mmHg (35-45); ABG PH 7.33 pH Units (7.32-7.45); ABG PO2 88 mmHg (85-104); ABG TCO2 31.2 mEq/L (20-26)
[2017-03-02 05:25] LABS: Blood Gas FiO2 50 %
[2017-03-02 05:38] LABS: Hypochromasia Present (Not Present); Platelet Estimate Normal (Normal)
[2017-03-02] MEDS: Pantoprazole 40 MG VIAL IVP SCH (08:26)
[2017-03-02] MEDS: cloNIDine HCl 0.1 MG TABLET PO SCH (08:27)
[2017-03-02] MEDS ORDERED: 0.9 % Sodium Chloride 250 ML IVC PRN (08:28)
[2017-03-02] MEDS: amLODIPine 5 MG TABLET PO SCH (08:28)
--- NOTE | 2017-03-02 08:28 | Nephrology Progress Note ---
Date of Encounter: 03/02/17 Time of Encounter: 08:27 - Assessment and Plan (1) ESRD on dialysis Current Visit: Yes Status: Chronic The patient's clinical picture of anoxic brain injury following cardiac arrest. Neurologic input has been noted. Patient will undergo his dialysis today. Prognosis is poor. (2) Atrial fibrillation Current Visit: No Status: Chronic Qualifiers: Atrial fibrillation type: paroxysmal Qualified Code(s): I48.0 - Paroxysmal atrial fibrillation (3) Sepsis due to Klebsiella Current Visit: Yes Status: Acute Subjective Interval history: The patient remains poorly responsive. He is on the ventilator. Neurologic input has been reviewed. Will undergo routine dialysis today. Objective - Vital Signs Vital signs: Vital Signs Temp Pulse Resp BP Pulse Ox 03/02/17 07:48 23 129/58 93 03/02/17 06:00 70 21 112/61 96 03/02/17 05:35 21 132/60 98 03/02/17 05:00 69 23 129/67 96 03/02/17 04:37 76 03/02/17 04:00 98.4 F 76 21 134/71 97 03/02/17 03:47 19 118/63 97 03/02/17 03:00 74 21 125/72 97 03/02/17 02:00 80 21 112/64 97 03/02/17 01:39 25 133/69 96 03/02/17 01:00 75 20 114/60 95 03/02/17 00:39 90 03/02/17 00:09 99.7 F H 03/02/17 00:00 90 30 147/72 97 03/01/17 23:59 33 110/56 97 03/01/17 23:00 83 21 110/56 93 03/01/17 22:00 98 32 174/87 97 03/01/17 21:27 25 134/70 95 03/01/17 21:00 85 25 134/70 95 03/01/17 20:30 87 03/01/17 20:17 100.2 F H 03/01/17 20:00 87 28 124/65 97 03/01/17 19:52 20 107/59 93 03/01/17 19:00 100 27 129/64 96 03/01/17 18:30 100 21 154/84 96 03/01/17 17:30 104 26 144/73 95 03/01/17 17:20 99.6 F 03/01/17 17:03 33 187/92 96 03/01/17 16:55 33 187/92 96 03/01/17 16:30 105 32 157/92 94 03/01/17 15:42 26 147/69 96 03/01/17 15:00 89 28 157/80 95 03/01/17 14:00 89 22 145/79 96 03/01/17 13:24 28 141/83 96 03/01/17 13:00 86 21 141/83 96 03/01/17 12:00 98.6 F 90 20 137/69 97 03/01/17 11:00 85 19 141/69 96 03/01/17 10:00 84 18 128/65 96 03/01/17 09:13 22 124/69 96 03/01/17 09:00 91 21 124/69 96 Intake and Output 03/01/17 03/02/17 03/02/17 23:59 07:59 15:59 Intake Total 100 / 100 Output Total 150 / 150 0 / 0 Balance -150 / -150 100 / 100 Intake: IV Fluids 100 / 100 PRECEDEX 400 mcg In 100 100 / 100 ml @ 0.2 MCG/KG/HR 5.775 mls/hr IVC .[id number] [facility] Rx#:[id number] Oral 0 / 0 Output: Urine 0 / 0 Catheter 150 / 150 Other: Weight 108.4 kg Blood Glucose* 90 105 Patient Weight 03/02/17 23:59 Weight 108.4 kg - General Appearance Exam: Patient has some spontaneous movements lying in bed. He is on the ventilator. Blood pressure is labile. Heart regular rate and rhythm. Lungs coarse breath sounds. Abdomen bowel sounds are present. No guarding or rigidity. Mild lower extremity edema. Functioning AV fistula in the right upper extremity. - Lab 03/02/17 04:08 03/02/17 04:08 Most recent lab results ABG pH 7.33 pH Units (7.32-7.45) 03/02/17 05:13 ABG pCO2 56 mmHg (35-45) H 03/02/17 05:13 ABG pO2 88 mmHg (85-104) 03/02/17 05:13 ABG HCO3 29.5 mEQ/L (21-27) H 03/02/17 05:13 ABG O2 Saturation 96 % (95-98) 03/02/17 05:13 Calcium 8.0 mg/dL (8.6-10.8) L 03/02/17 04:08 Phosphorus 7.6 mg/dL (2.3-4.7) H 03/02/17 04:08 Magnesium 2.2 mg/dL (1.6-2.6) 03/02/17 04:08 Consult Discharge Plan - Plan Referrals: Chilo Lewis Jr, MD [Primary Care Provider] - (Possible back to [facility] ?)
[2017-03-02] MEDS: Chlorhexidine Rinse 15 ML MOUTHWASH MM SCH ×2 (08:29→21:25)
--- NOTE | 2017-03-02 08:33 | Pulmonology Progress Note ---
<Alicia Jones - Last Filed: 03/02/17 09:38> Date of Encounter: 03/02/17 Time of Encounter: 08:29 Assessment and Plan (1) Acute respiratory failure Current Visit: Yes Status: Acute Patient's day 3 status post cardiac arrest. He is intubated and on the ventilator. Patient appears to be moving about in the bed. He is leaning to his left. He is moving both upper extremities and his right lower extremity. He is liking his eyes. He does not track. Heart rate does recheck for his ET tube. We have restrained his upper extremities. Patient does chronically take pain medications ordered and is starting a fentanyl drip as time. We will continue to monitor patient's mental status. We placed him on Precedex yesterday and seems to be responding well to that. He was initially called to the hospital for treatment for one positive blood culture positive for Klebsiella. He has had 2 negative blood cultures since this. He subsequently had a cardiac arrest event after he was removed from dialysis. During this event the patient was noted to be in asystole. He was given epinephrine and sodium bicarbonate as well as calcium chloride. He was anemic after the arrest and given 1 unit of blood. This brought his hemoglobin up to 8.6 from 6. Patient is a chronic dialysis patient. He is Dr. Carroll's patient. Patient was placed on the hypothermia protocol. He was rewarmed. There is a concern for a possible TROLI due to increased pulmonary edema after his blood transfusion. However this appears to be improving. We stopped antibiotic yesterday. It is not appears patient has an infectious process. The Klebsiella was most likely contaminant as he has had 2 negative blood cultures since then. He is no longer bradycardic. He is now tachycardic and hypertensive. We will continue patient's Coreg. We will steadily increase this and titrate to patient 's heart rate and blood pressure. Patient EEG was read as abnormal however there is a lot of artifact due to the ventilator. CT showed no acute findings. Plan: Continue Dialysis as scheduled Serial Neuro exams Increase Coreg Fentanyl drip Precedex SBT today GI prophylaxis: Protonix 40 mg IV push daily DVT prophylaxis Heparin subcutaneous 5000 units every 8 Qualifiers: Respiratory failure complication: hypoxia Qualified Code(s): J96.01 - Acute respiratory failure with hypoxia (2) Dialysis patient Current Visit: No Status: Acute Patient has chronic renal failure. He is a patient of Dr. Mendez Plan: Dialysis (3) End-stage renal disease Current Visit: No Status: Chronic Chronic Plan as above (4) Bacteremia due to Klebsiella pneumoniae Current Visit: Yes Status: Acute 1 positive blood culture. 2 negative blood cultures since the initial positive. Plan: Likely contaminate Subjective Interval history: No overnight events. Overnight nurse states that the patient has been moving his right side frequently however this morning she noticed that he is starting to move his left side. She notes that the patient appears to be reaching up to gravity his ET tube. The patient does not follow commands for me nor the nurse. Patient is off pressors. Yesterday the patient became tachycardic and hypertensive. So we started him back on Coreg. We have also placed him on Precedex because his respiratory rate increased. Today we will add fentanyl. Patient does take chronic opiates and he is moving in the bed at this time we will add the fentanyl to help alleviate stress on the patient. We will do a spontaneous breathing trial later this afternoon after patient receives dialysis. Objective PUL Vital signs: Last Vital Signs Temp 98.4 F 03/02/17 04:00 Pulse 70 03/02/17 06:00 Resp 23 03/02/17 07:48 BP 129/58 03/02/17 07:48 Pulse Ox 93 03/02/17 07:48 General appearance: other (Intubated. Does not follow commands but does reach for the ET tube.) Eyes: nonicteric ENT: oropharynx moist Neck: supple Effort: normal Cardiovascular: regular rate and rhythm Gastrointestinal: normoactive bowel sounds, soft, non-distended Integumentary: normal Extremities: no cyanosis, no edema, no clubbing, pink and warm, pulses normal Musculoskeletal: no deformities Ventilator Settings Ventilator Settings: Ventilator Settings, Last 8 Hours Ventilator Mode VC+ Ventilator Mode VC+ Ventilator Mode VC+ Ventilator Mode VC+ Ventilator Mode VC+ Ventilator Mode VC+ Ventilator Mode VC+ Ventilator Mode VC+ Ventilator Mode VC+ Ventilator Mode VC+ Ventilator Mode VC+ Ventilator Tidal Volume 450 Setting Ventilator Tidal Volume 450 Setting Ventilator Tidal Volume 450 Setting Ventilator Tidal Volume 460 Setting Ventilator Tidal Volume 450 Setting Ventilator Tidal Volume 450 Setting Ventilator Tidal Volume 450 Setting Ventilator Tidal Volume 450 Setting Ventilator Tidal Volume 450 Setting Ventilator Tidal Volume 450 Setting Ventilator Tidal Volume 450 Setting Ventilator Respiratory Rate 16 Setting Ventilator Respiratory Rate 16 Setting Ventilator Respiratory Rate 16 Setting Ventilator Respiratory Rate 16 Setting Ventilator Respiratory Rate 16 Setting Ventilator Respiratory Rate 16 Setting Ventilator Respiratory Rate 16 Setting Ventilator Respiratory Rate 16 Setting Ventilator Respiratory Rate 16 Setting Ventilator Respiratory Rate 16 Setting Ventilator Respiratory Rate 16 Setting Actual Respiratory Rate 23 Actual Respiratory Rate 21 Actual Respiratory Rate 21 Actual Respiratory Rate 23 Actual Respiratory Rate 21 Actual Respiratory Rate 19 Actual Respiratory Rate 21 Actual Respiratory Rate 21 Actual Respiratory Rate 25 Actual Respiratory Rate 20 Positive End Expiratory 5 Pressure Positive End Expiratory 5 Pressure Positive End Expiratory 5 Pressure Positive End Expiratory 5 Pressure Positive End Expiratory 5 Pressure Positive End Expiratory 5 Pressure Positive End Expiratory 5 Pressure Positive End Expiratory 5 Pressure Positive End Expiratory 5 Pressure Positive End Expiratory 5 Pressure Positive End Expiratory 5 Pressure Peak Inspiratory Airway 16 Pressure Peak Inspiratory Airway 16 Pressure Peak Inspiratory Airway 19 Pressure Peak Inspiratory Airway 14 Pressure Peak Inspiratory Airway 14 Pressure Peak Inspiratory Airway 20 Pressure Peak Inspiratory Airway 19 Pressure Peak Inspiratory Airway 12 Pressure Peak Inspiratory Airway 21 Pressure Peak Inspiratory Airway 15 Pressure Results - Laboratory Findings CBC and BMP: 03/02/17 04:08 03/02/17 04:08 ABG ABG pH 7.33 pH Units (7.32-7.45) 03/02/17 05:13 ABG pCO2 56 mmHg (35-45) H 03/02/17 05:13 ABG pO2 88 mmHg (85-104) 03/02/17 05:13 ABG O2 Saturation 96 % (95-98) 03/02/17 05:13 PT/INR, D-dimer PT 13.7 Seconds (9.4-12.1) H 02/27/17 17:40 Abnormal lab findings: Abnormal lab results RBC 2.81 M/mcL (4.19-5.50) L 03/02/17 04:08 Hgb 7.9 g/dL (12.9-16.9) L 03/02/17 04:08 Hct 24.0 % (37.5-50.1) L 03/02/17 04:08 RDW 17.1 % (11.5-14.5) H 03/02/17 04:08 Band Neutrophils % 8.0 % (0-4) H 02/28/17 16:00 Metamyelocytes % 2.0 % (0) H 02/28/17 16:00 Myelocytes % 4.0 % (0) H 02/28/17 16:00 Nucleated RBCs/100 WBC 0.4 /100 WBC (0) H 03/02/17 04:08 Reactive Lymphocytes Present (Not Present) A 03/01/17 03:00 Smudge Cells Present (Not Present) A 03/01/17 03:00 Polychromasia 1+ (Not Present) A 02/28/17 16:00 Hypochromasia Present (Not Present) A 03/02/17 04:08 Anisocytosis 1+ (Not Present) A 02/28/17 16:00 PT 13.7 Seconds (9.4-12.1) H 02/27/17 17:40 ABG pCO2 56 mmHg (35-45) H 03/02/17 05:13 ABG HCO3 29.5 mEQ/L (21-27) H 03/02/17 05:13 ABG Total CO2 31.2 mEq/L (20-26) H 03/02/17 05:13 Potassium 5.6 mEq/L (3.5-4.5) H 03/02/17 04:08 Chloride 95 mEq/L (98-109) L 03/02/17 04:08 BUN 82 mg/dL (8-26) H D 03/02/17 04:08 Creatinine 6.88 mg/dL (0.72-1.25) H 03/02/17 04:08 Est GFR ( Amer) 10 (> 60) L 03/02/17 04:08 Est GFR (Non-Af Amer) 8 (> 60) L 03/02/17 04:08 POC Glucose 105 (58-89) H 03/01/17 23:59 Calculated Osmolality 307 (280-300) H 03/02/17 04:08 Calcium 8.0 mg/dL (8.6-10.8) L 03/02/17 04:08 Ionized Calcium 0.97 mmol/L (1.15-1.35) L 03/02/17 04:08 Phosphorus 7.6 mg/dL (2.3-4.7) H 03/02/17 04:08 Iron 43 mcg/dL (65-175) L 02/27/17 04:22 Transferrin 134 mg/dL (174-364) L 02/27/17 04:22 Ferritin 3147 ng/ml (22-275) H 02/27/17 04:22 Direct Bilirubin 0.6 mg/dL (0.0-0.5) H 02/28/17 03:18 AST 47 Units/L (5-34) H 02/28/17 03:18 Alkaline Phosphatase 135 Units/L (38-126) H 02/28/17 03:18 Troponin I 0.05 ng/mL (0-0.03) H* 02/27/17 17:40 Albumin 2.9 g/dL (3.5-5.0) L 02/28/17 03:18 Globulin 5.1 g/dL (2.4-3.5) H 02/28/17 03:18 Albumin/Globulin Ratio 0.6 (1.1-2.2) L 02/28/17 03:18 Triglycerides 158 mg/dL (< 150) H 02/26/17 04:28 VLDL Cholesterol, Calc 32 mg/dL (< 31) H 02/26/17 04:28 - Clinical Findings Intake & Output: Intake & Output 03/01/17 03/02/17 03/02/17 23:59 07:59 15:59 Intake Total 100 / 100 Output Total 150 / 150 0 / 0 Balance -150 / -150 100 / 100 Weight 108.4 kg Pulmonary Procedures - Arterial Line Size (Gauge): 20 Consult Discharge Plan - Plan Referrals: Chilo Lewis Jr, MD [Primary Care Provider] - (Possible back to [facility] ?) <Tico Swartz - Last Filed: 03/02/17 12:12> Date of Encounter: 03/02/17 Objective PUL Vital signs: Last Vital Signs Temp 98.7 F 03/02/17 11:15 Pulse 66 03/02/17 10:00 Resp 22 03/02/17 11:38 BP 145/76 03/02/17 11:38 Pulse Ox 99 03/02/17 11:38 Ventilator Settings Ventilator Settings: Ventilator Settings, Last 8 Hours Ventilator Mode VC+ Ventilator Mode VC+ Ventilator Mode VC+ Ventilator Mode VC+ Ventilator Mode VC+ Ventilator Mode VC+ Ventilator Mode VC+ Ventilator Mode VC+ Ventilator Mode VC+ Ventilator Mode VC+ Ventilator Tidal Volume 450 Setting Ventilator Tidal Volume 460 Setting Ventilator Tidal Volume 450 Setting Ventilator Tidal Volume 450 Setting Ventilator Tidal Volume 460 Setting Ventilator Tidal Volume 450 Setting Ventilator Tidal Volume 450 Setting Ventilator Tidal Volume 450 Setting Ventilator Tidal Volume 460 Setting Ventilator Tidal Volume 450 Setting Ventilator Respiratory Rate 16 Setting Ventilator Respiratory Rate 16 Setting Ventilator Respiratory Rate 16 Setting Ventilator Respiratory Rate 16 Setting Ventilator Respiratory Rate 16 Setting Ventilator Respiratory Rate 16 Setting Ventilator Respiratory Rate 16 Setting Ventilator Respiratory Rate 16 Setting Ventilator Respiratory Rate 16 Setting Ventilator Respiratory Rate 16 Setting Actual Respiratory Rate 23 Actual Respiratory Rate 20 Actual Respiratory Rate 18 Actual Respiratory Rate 17 Actual Respiratory Rate 18 Actual Respiratory Rate 23 Actual Respiratory Rate 21 Actual Respiratory Rate 21 Actual Respiratory Rate 23 Positive End Expiratory 5 Pressure Positive End Expiratory 5 Pressure Positive End Expiratory 5 Pressure Positive End Expiratory 5 Pressure Positive End Expiratory 5 Pressure Positive End Expiratory 5 Pressure Positive End Expiratory 5 Pressure Positive End Expiratory 5 Pressure Positive End Expiratory 5 Pressure Positive End Expiratory 5 Pressure Peak Inspiratory Airway 18 Pressure Peak Inspiratory Airway 20 Pressure Peak Inspiratory Airway 21 Pressure Peak Inspiratory Airway 17 Pressure Peak Inspiratory Airway 21 Pressure Peak Inspiratory Airway 16 Pressure Peak Inspiratory Airway 16 Pressure Peak Inspiratory Airway 19 Pressure Peak Inspiratory Airway 14 Pressure Results - Laboratory Findings CBC and BMP: 03/02/17 04:08 03/02/17 04:08 ABG ABG pH 7.33 pH Units (7.32-7.45) 03/02/17 05:13 ABG pCO2 56 mmHg (35-45) H 03/02/17 05:13 ABG pO2 88 mmHg (85-104) 03/02/17 05:13 ABG O2 Saturation 96 % (95-98) 03/02/17 05:13 PT/INR, D-dimer PT 13.7 Seconds (9.4-12.1) H 02/27/17 17:40 Abnormal lab findings: Abnormal lab results RBC 2.81 M/mcL (4.19-5.50) L 03/02/17 04:08 Hgb 7.9 g/dL (12.9-16.9) L 03/02/17 04:08 Hct 24.0 % (37.5-50.1) L 03/02/17 04:08 RDW 17.1 % (11.5-14.5) H 03/02/17 04:08 Band Neutrophils % 8.0 % (0-4) H 02/28/17 16:00 Metamyelocytes % 2.0 % (0) H 02/28/17 16:00 Myelocytes % 4.0 % (0) H 02/28/17 16:00 Nucleated RBCs/100 WBC 0.4 /100 WBC (0) H 03/02/17 04:08 Reactive Lymphocytes Present (Not Present) A 03/01/17 03:00 Smudge Cells Present (Not Present) A 03/01/17 03:00 Polychromasia 1+ (Not Present) A 02/28/17 16:00 Hypochromasia Present (Not Present) A 03/02/17 04:08 Anisocytosis 1+ (Not Present) A 02/28/17 16:00 PT 13.7 Seconds (9.4-12.1) H 02/27/17 17:40 ABG pCO2 56 mmHg (35-45) H 03/02/17 05:13 ABG HCO3 29.5 mEQ/L (21-27) H 03/02/17 05:13 ABG Total CO2 31.2 mEq/L (20-26) H 03/02/17 05:13 Potassium 5.6 mEq/L (3.5-4.5) H 03/02/17 04:08 Chloride 95 mEq/L (98-109) L 03/02/17 04:08 BUN 82 mg/dL (8-26) H D 03/02/17 04:08 Creatinine 6.88 mg/dL (0.72-1.25) H 03/02/17 04:08 Est GFR ( Amer) 10 (> 60) L 03/02/17 04:08 Est GFR (Non-Af Amer) 8 (> 60) L 03/02/17 04:08 POC Glucose 108 (58-89) H 03/02/17 11:03 Calculated Osmolality 307 (280-300) H 03/02/17 04:08 Calcium 8.0 mg/dL (8.6-10.8) L 03/02/17 04:08 Ionized Calcium 0.97 mmol/L (1.15-1.35) L 03/02/17 04:08 Phosphorus 7.6 mg/dL (2.3-4.7) H 03/02/17 04:08 Iron 43 mcg/dL (65-175) L 02/27/17 04:22 Transferrin 134 mg/dL (174-364) L 02/27/17 04:22 Ferritin 3147 ng/ml (22-275) H 02/27/17 04:22 Direct Bilirubin 0.6 mg/dL (0.0-0.5) H 02/28/17 03:18 AST 47 Units/L (5-34) H 02/28/17 03:18 Alkaline Phosphatase 135 Units/L (38-126) H 02/28/17 03:18 Troponin I 0.05 ng/mL (0-0.03) H* 02/27/17 17:40 Albumin 2.9 g/dL (3.5-5.0) L 02/28/17 03:18 Globulin 5.1 g/dL (2.4-3.5) H 02/28/17 03:18 Albumin/Globulin Ratio 0.6 (1.1-2.2) L 02/28/17 03:18 Triglycerides 158 mg/dL (< 150) H 02/26/17 04:28 VLDL Cholesterol, Calc 32 mg/dL (< 31) H 02/26/17 04:28 - Clinical Findings Intake & Output: Intake & Output 03/01/17 03/02/17 03/02/17 23:59 07:59 15:59 Intake Total 116.1 / 116.1 Output Total 150 / 150 0 / 0 Balance -150 / -150 116.1 / 116.1 Weight 108.4 kg - Attending Attestation I examined this patient and my medical decision-making was reviewed with the [employer]/PA/Advanced Practice Nurse/Resident Physician. I agree with the documented findings, disposition and treatment plan as described except to the extent set forth below. Patient seen and examined at bedside Labs, radiology, chart personally reviewed. All lines examined without evidence of infection. Neuropsych: Anoxic brain injury encouraging patient has had significant improvement overall neurologic function over the last 24 hours no is able to move extremities spontaneously although not to command. Formal neurological consultation has been placed; low-dose sedation was instituted including fentanyl and Precedex Pulm: Baseline pulmonary edema secondary to is her D and heart failure ventilator was adjusted to VC plus mode for improved patient ventilator synchrony, acceptable oxygenation and ventilation today; plan for spontaneous breathing trial after volume removal with renal replacement therapy Cards: Mild hypertension continue to titrate home blood pressure regimen FEN-GI: Start enteral nutrition PPI prophylaxis given; bowel regimen has been provided Renal: History of ESRD Renal replacement therapy of volume removal plan for today continue to monitor electrolytes replace per protocol ID: No acute evidence of infection continue to monitor Heme/Onc: DVT prophylaxis given H&H and platelets are stable Endo: Glucose monitored Integ/MSK: Skin care per routine ICU protocol to prevent ulcers CODE: DNAR family meeting yesterday with palliative care and myself with transitioned from full code to DNA are given underlying anoxic brain injury additional rounds of CPR would leave patient even more debilitated family is in agreement that transition should be made CODE STATUS was modified
[2017-03-02] MEDS ORDERED: *HR* Dextrose 50 % in Water (Syg) 50 ML SYRINGE IVP PRN (08:45)
[2017-03-02] MEDS ORDERED: Dextrose Gel 15 GM PO PRN ×2 (08:45)
[2017-03-02] MEDS ORDERED: D5% in Water 1,000 ML IVC PRN (08:45)
[2017-03-02] MEDS: FentaNYL (PF) 1,000 MCG in 0.9 % Sodium Chloride 80 ML IVC SCH (09:15)
[2017-03-02] MEDS: Calcium Gluconate 1,000 MG in D5% in Water 100 ML IVPB PRN (11:36)
[2017-03-02] MEDS: Budesonide/Formoterol 160/4.5 MDI IH SCH ×2 (11:37→19:22)
[2017-03-02] MEDS: Insulin LISPRO 300 UNITS/3 ML VIAL SQ SCH ×3 (12:28→23:52)
--- NOTE | 2017-03-02 12:46 | Event Note ---
Date of Encounter: 03/02/17 Time of Encounter: 11:00 Patient opened eyes when name called. Still does not follow commands. Staff reports pt has been moving some. He will be getting dialysis today. No family present currently. D/W Dr. Jones. Will continue to follow clinical course and monitor progress.
[2017-03-02] MEDS ORDERED: 0.9 % Sodium Chloride 2,000 ML ONE (12:49)
[2017-03-03] MEDS: Dexmedetomidine HCl 400 MCG/100 ML MLS IVC SCH ×4 (03:26→23:11)
[2017-03-03] MEDS: Ipratropium/Albuterol Neb 3 ML IH SCH ×6 (03:54→23:49)
[2017-03-03 04:40] LABS: ABG Base Excess 5.8 mEq/L (-2.0 to 3.0); ABG HCO3 32.7 mEQ/L (21-27); ABG Oxygen Saturation 96 % (95-98); ABG PCO2 62 mmHg (35-45); ABG PH 7.33 pH Units (7.32-7.45); ABG PO2 88 mmHg (85-104); ABG TCO2 34.6 mEq/L (20-26); Blood Gas FiO2 40 %; Blood Gas PEEP 5 cm H2O; Blood Gas Respiration Rate 16; Blood Gas VT 460 cc
[2017-03-03] MEDS: Lacri-Lube 3.5 GM TUBE BOTH EYES SCH ×5 (04:40→22:40)
[2017-03-03 05:02] LABS: Basophils % 0.2 %; Eosinophils # 0.1 K/mcL (0.0-0.6); Eosinophils % 0.7 %; Hemoglobin 7.9 g/dL (12.9-16.9); Immature Granulocytes % 2.5 % (0-4); Lymphocytes # 1.9 K/mcL (0.6-4.6); Lymphocytes % 21.7 %; Mean Corpuscular HGB Conc 32.9 g/dL (31.6-35.5); Mean Corpuscular Hemoglobin 28.7 pg (28.0-33.3); Mean Corpuscular Volume 87.3 fL (83.0-100.0); Mean Platelet Volume 11.6 fL (9.4-12.4); Monocytes # 0.6 K/mcL (0.0-1.3); Monocytes % 6.5 %; Nucleated Red Blood Cells 0.3 /100 WBC (0); Platelet Count 168 K/mcL (140-400); Red Blood Count 2.75 M/mcL (4.19-5.50); Red Cell Distribution Width 17.3 % (11.5-14.5); Segmented Neutrophils % 68.4 %
[2017-03-03 05:22] LABS: Magnesium 2.2 mg/dL (1.6-2.6); Phosphorous 6.2 mg/dL (2.3-4.7)
[2017-03-03 05:28] LABS: Anisocytosis 1+ (Not Present); Macrocytosis Present (Not Present); Platelet Estimate Normal (Normal)
[2017-03-03 05:29] LABS: Polychromasia 1+ (Not Present); Reactive Lymphocytes Present (Not Present)
[2017-03-03] MEDS: Insulin LISPRO 300 UNITS/3 ML VIAL SQ SCH ×3 (05:31→17:21)
[2017-03-03] MEDS: *HR* Heparin 5,000 UNIT/ML VIAL SQ SCH ×3 (05:31→22:34)
[2017-03-03] MEDS: Calcium Gluconate 1,000 MG in D5% in Water 100 ML IVPB PRN ×2 (05:58→18:53)
[2017-03-03] MEDS: Budesonide/Formoterol 160/4.5 MDI IH SCH ×2 (07:54→20:38)
[2017-03-03] MEDS: Pantoprazole 40 MG VIAL IVP SCH (08:38)
[2017-03-03] MEDS: cloNIDine HCl 0.1 MG TABLET PO SCH (08:38)
[2017-03-03] MEDS: amLODIPine 5 MG TABLET PO SCH (08:38)
[2017-03-03] MEDS: Chlorhexidine Rinse 15 ML MOUTHWASH MM SCH ×2 (08:39→19:56)
--- NOTE | 2017-03-03 08:42 | Pulmonology Progress Note ---
Date of Encounter: 03/03/17 Time of Encounter: 08:40 Assessment and Plan (1) Acute respiratory failure with hypoxia and hypercarbia Current Visit: No Status: Acute Neuropsych: Anoxic brain injury status post cardiac arrest he is displaying progressively improve neurological function which is encouraging I suspect he will be left with a serious neurologic impairment but only time will tell this. Pulm: Acute hypoxic respiratory failure which is resolving now there is a component of cardiogenic pulmonary edema but only minimal minimal ventilator requirement spontaneous breathing trial planned for today with likely extubation based upon clinical course Cards: Status post cardiac arrest (asystole) doing well now from cardiac standpoint beta blockers be been reinstituted for tachycardia blood pressure is reasonably controlled and we will continue to monitor FEN-GI: Entral nutrition via OG tube has been started; continue PPI prophylaxis for GI ulcer prevention Renal: End-stage renal disease electrolytes monitored plan for dialysis with volume removal today nephrology following ID: No evidence of infection continue to monitor Heme/Onc: DVT prophylaxis given H&H and platelets are stable Endo: Glucose monitored sliding scale insulin as needed for hyperglycemia Integ/MSK: Care per routine ICU protocol all lines examined without evidence of infection CODE: CODE STATUS was changed back to full by the family today (2) ESRD on dialysis Current Visit: Yes Status: Chronic (3) DVT prophylaxis Current Visit: Yes Status: Acute (4) CAD (coronary artery disease) Current Visit: No Status: Chronic Qualifiers: Coronary Disease-Associated Artery/Lesion type: [place] artery [place] vs. transplanted heart: [place] heart Associated angina: without angina Qualified Code(s): I25.10 - Atherosclerotic heart disease of [place] coronary artery without angina pectoris (5) COPD exacerbation Current Visit: No Status: Acute (6) Counseling regarding advanced care planning and goals of care Current Visit: Yes Status: Acute (7) Anoxic brain injury Current Visit: Yes Status: Acute Subjective Principal diagnosis: Cardiac arrest Interval history: Mr. Hernandez continues to show improvement from a neurological this perspective. He is displaying purposeful movements to avoid such as opening and closing his eyes he still does not have coordinated efforts in his extremities. He remains hemodynamically stable on minimal ventilator requirements. Objective PUL Vital signs: Last Vital Signs Temp 97.3 F L 03/03/17 04:59 Pulse 53 03/03/17 06:00 Resp 23 03/03/17 07:54 BP 150/71 03/03/17 07:54 Pulse Ox 96 03/03/17 07:54 General appearance: no acute distress ENT: oropharynx moist Neck: supple Auscultation: bilateral: clear Cardiovascular: regular rate and rhythm Gastrointestinal: soft, non-tender Extremities: other (Trace lower extremity edema) pupils equal and round, CN II-XII normal Ventilator Settings Ventilator Settings: Ventilator Settings, Last 8 Hours Ventilator Mode VC+ Ventilator Mode VC+ Ventilator Mode VC+ Ventilator Mode VC+ Ventilator Mode VC+ Ventilator Mode VC+ Ventilator Mode VC+ Ventilator Mode VC+ Ventilator Mode VC+ Ventilator Mode VC+ Ventilator Mode VC+ Ventilator Tidal Volume 460 Setting Ventilator Tidal Volume 460 Setting Ventilator Tidal Volume 460 Setting Ventilator Tidal Volume 460 Setting Ventilator Tidal Volume 460 Setting Ventilator Tidal Volume 460 Setting Ventilator Tidal Volume 460 Setting Ventilator Tidal Volume 460 Setting Ventilator Tidal Volume 460 Setting Ventilator Tidal Volume 460 Setting Ventilator Tidal Volume 460 Setting Ventilator Respiratory Rate 16 Setting Ventilator Respiratory Rate 16 Setting Ventilator Respiratory Rate 16 Setting Ventilator Respiratory Rate 16 Setting Ventilator Respiratory Rate 16 Setting Ventilator Respiratory Rate 16 Setting Ventilator Respiratory Rate 16 Setting Ventilator Respiratory Rate 16 Setting Ventilator Respiratory Rate 16 Setting Ventilator Respiratory Rate 16 Setting Ventilator Respiratory Rate 16 Setting Actual Respiratory Rate 24 Actual Respiratory Rate 21 Actual Respiratory Rate 17 Actual Respiratory Rate 16 Actual Respiratory Rate 16 Actual Respiratory Rate 16 Actual Respiratory Rate 25 Actual Respiratory Rate 16 Actual Respiratory Rate 22 Actual Respiratory Rate 17 Positive End Expiratory 5 Pressure Positive End Expiratory 5 Pressure Positive End Expiratory 5 Pressure Positive End Expiratory 5 Pressure Positive End Expiratory 5 Pressure Positive End Expiratory 5 Pressure Positive End Expiratory 5 Pressure Positive End Expiratory 5 Pressure Positive End Expiratory 5 Pressure Positive End Expiratory 5 Pressure Positive End Expiratory 5 Pressure Peak Inspiratory Airway 17 Pressure Peak Inspiratory Airway 20 Pressure Peak Inspiratory Airway 25 Pressure Peak Inspiratory Airway 22 Pressure Peak Inspiratory Airway 24 Pressure Peak Inspiratory Airway 34 Pressure Peak Inspiratory Airway 17 Pressure Peak Inspiratory Airway 26 Pressure Peak Inspiratory Airway 17 Pressure Peak Inspiratory Airway 25 Pressure Results - Laboratory Findings CBC and BMP: 03/03/17 04:38 03/03/17 04:38 ABG ABG pH 7.33 pH Units (7.32-7.45) 03/03/17 04:20 ABG pCO2 62 mmHg (35-45) H 03/03/17 04:20 ABG pO2 88 mmHg (85-104) 03/03/17 04:20 ABG O2 Saturation 96 % (95-98) 03/03/17 04:20 PT/INR, D-dimer PT 13.7 Seconds (9.4-12.1) H 02/27/17 17:40 Abnormal lab findings: Abnormal lab results RBC 2.75 M/mcL (4.19-5.50) L 03/03/17 04:38 Hgb 7.9 g/dL (12.9-16.9) L 03/03/17 04:38 Hct 24.0 % (37.5-50.1) L 03/03/17 04:38 RDW 17.3 % (11.5-14.5) H 03/03/17 04:38 Band Neutrophils % 8.0 % (0-4) H 02/28/17 16:00 Metamyelocytes % 2.0 % (0) H 02/28/17 16:00 Myelocytes % 4.0 % (0) H 02/28/17 16:00 Nucleated RBCs/100 WBC 0.3 /100 WBC (0) H 03/03/17 04:38 Reactive Lymphocytes Present (Not Present) A 03/03/17 04:38 Smudge Cells Present (Not Present) A 03/01/17 03:00 Polychromasia 1+ (Not Present) A 03/03/17 04:38 Hypochromasia Present (Not Present) A 03/02/17 04:08 Anisocytosis 1+ (Not Present) A 03/03/17 04:38 Macrocytosis Present (Not Present) A 03/03/17 04:38 PT 13.7 Seconds (9.4-12.1) H 02/27/17 17:40 ABG pCO2 62 mmHg (35-45) H 03/03/17 04:20 ABG HCO3 32.7 mEQ/L (21-27) H 03/03/17 04:20 ABG Total CO2 34.6 mEq/L (20-26) H 03/03/17 04:20 ABG Base Excess 5.8 mEq/L (-2.0 to 3.0) H 03/03/17 04:20 Sodium 135 mEq/L (136-145) L 03/03/17 04:38 Potassium 5.0 mEq/L (3.5-4.5) H 03/03/17 04:38 Chloride 97 mEq/L (98-109) L 03/03/17 04:38 BUN 53 mg/dL (8-26) H D 03/03/17 04:38 Creatinine 4.93 mg/dL (0.72-1.25) H 03/03/17 04:38 Est GFR ( Amer) 14 (> 60) L 03/03/17 04:38 Est GFR (Non-Af Amer) 12 (> 60) L 03/03/17 04:38 Glucose 198 mg/dL (70-99) H 03/03/17 04:38 POC Glucose 224 (58-89) H 03/03/17 05:20 Calcium 8.0 mg/dL (8.6-10.8) L 03/03/17 04:38 Ionized Calcium 0.90 mmol/L (1.15-1.35) L 03/03/17 04:38 Phosphorus 6.2 mg/dL (2.3-4.7) H 03/03/17 04:38 Iron 43 mcg/dL (65-175) L 02/27/17 04:22 Transferrin 134 mg/dL (174-364) L 02/27/17 04:22 Ferritin 3147 ng/ml (22-275) H 02/27/17 04:22 Direct Bilirubin 0.6 mg/dL (0.0-0.5) H 02/28/17 03:18 AST 47 Units/L (5-34) H 02/28/17 03:18 Alkaline Phosphatase 135 Units/L (38-126) H 02/28/17 03:18 Troponin I 0.05 ng/mL (0-0.03) H* 02/27/17 17:40 Albumin 2.9 g/dL (3.5-5.0) L 02/28/17 03:18 Globulin 5.1 g/dL (2.4-3.5) H 02/28/17 03:18 Albumin/Globulin Ratio 0.6 (1.1-2.2) L 02/28/17 03:18 Triglycerides 158 mg/dL (< 150) H 02/26/17 04:28 VLDL Cholesterol, Calc 32 mg/dL (< 31) H 02/26/17 04:28 - Clinical Findings Intake & Output: Intake & Output 03/02/17 03/03/17 03/03/17 23:59 07:59 15:59 Intake Total 454 / 454 447 / 447 Output Total 3650 / 3650 Balance -3196 / -3196 447 / 447 Weight 107.4 kg Pulmonary Procedures - Arterial Line Size (Gauge): 20 Consult Discharge Plan - Plan Referrals: Chilo Lewis Jr, MD [Primary Care Provider] - (Possible back to ECF ?)
--- NOTE | 2017-03-03 10:10 | Nephrology Progress Note ---
Date of Encounter: 03/03/17 Time of Encounter: 09:50 - Assessment and Plan (1) ESRD on dialysis Current Visit: Yes Status: Chronic S/P cardiac arrest. Will do HD today, orders given. Subjective Interval history: S/P cardiac arrest. In ICU, intubated, FIo2 .40, peep 5, sedated. Non responsive. Eyes open, spontaneous leg movement. Objective - Vital Signs Vital signs: Vital Signs Temp Pulse Resp BP Pulse Ox 03/03/17 10:00 67 14 133/67 03/03/17 09:00 61 14 129/62 94 03/03/17 08:00 67 18 150/76 97 03/03/17 07:54 23 150/71 96 03/03/17 06:00 53 17 147/74 97 03/03/17 05:30 19 95 03/03/17 05:00 55 17 146/72 95 03/03/17 04:59 97.3 F L 03/03/17 04:00 53 16 158/72 100 03/03/17 03:54 25 99 03/03/17 03:45 61 03/03/17 03:00 57 16 167/81 98 03/03/17 02:00 67 22 179/80 99 03/03/17 01:00 57 17 167/82 98 03/03/17 00:00 97.5 F L 51 17 161/86 98 03/02/17 23:45 55 03/02/17 23:25 16 97 03/02/17 23:00 61 18 153/86 97 03/02/17 22:33 18 97 03/02/17 22:00 70 17 156/71 97 03/02/17 21:00 60 17 140/73 97 03/02/17 20:38 97.4 F L 03/02/17 20:00 60 19 138/65 97 03/02/17 19:22 22 97 03/02/17 19:00 58 20 137/66 97 03/02/17 18:50 97.2 F L 18 135/64 03/02/17 18:35 91/55 03/02/17 18:20 93/52 03/02/17 18:05 118/66 03/02/17 18:00 57 17 93/52 96 03/02/17 17:50 157/83 07/06/17 17:35 128/83 03/02/17 17:20 105/62 03/02/17 17:12 19 135/64 96 03/02/17 17:05 112/64 03/02/17 17:00 60 22 105/60 97 03/02/17 16:50 104/62 03/02/17 16:35 117/61 03/02/17 16:20 114/62 03/02/17 16:05 121/64 03/02/17 16:00 62 19 116/61 96 03/02/17 15:50 137/69 03/02/17 15:37 98.4 F 03/02/17 15:35 97.8 F 18 149/78 03/02/17 15:00 61 19 139/75 97 03/02/17 14:00 79 19 134/74 96 03/02/17 13:41 19 139/74 96 03/02/17 13:00 67 20 135/70 97 03/02/17 12:00 67 19 139/74 97 03/02/17 11:38 22 145/76 99 03/02/17 11:15 98.7 F 03/02/17 11:00 66 23 145/76 99 Intake and Output 03/02/17 03/03/17 03/03/17 23:59 07:59 15:59 Intake Total 454 / 454 447 / 447 210 / 210 Output Total 3650 / 3650 Balance -3196 / -3196 447 / 447 210 / 210 Intake: IV Fluids 200 / 200 100 / 100 210 / 210 PRECEDEX 400 mcg In 100 200 / 200 100 / 100 100 / 100 ml @ 0.2 MCG/KG/HR 5.775 mls/hr IVC .[id number] [facility] Rx#:[id number] Calcium Gluconate 1,000 110 / 110 MG In Dextrose 5% 100 ML @ 50 mls/hr IVPB Q6HR PRN Rx#:[id number] Oral 0 / 0 Tube Feeding 254 / 254 347 / 347 Output: Urine 0 / 0 Total Dialysis (HD) 3600 / 3600 Output Catheter 50 / 50 Other: Weight 107.4 kg Blood Glucose* 91 224 Hemodialysis Net Fluid 3000 Removed (mL) Patient Weight 03/03/17 23:59 Weight 107.4 kg - General Appearance General appearance: Present: well-developed, well-nourished, appears started age , obese EENT: Present: mucous membranes moist Neck: Present: no JVD Respiratory: Present: wheezing Cardiology: Present: irregular rhythm Additional Comments: upper extremity dependent edema Gastrointestinal: Present: hypoactive bowel sounds Integumentary: Present: warm and dry - Lab 03/03/17 04:38 03/03/17 04:38 Most recent lab results ABG pH 7.33 pH Units (7.32-7.45) 03/03/17 04:20 ABG pCO2 62 mmHg (35-45) H 03/03/17 04:20 ABG pO2 88 mmHg (85-104) 03/03/17 04:20 ABG HCO3 32.7 mEQ/L (21-27) H 03/03/17 04:20 ABG O2 Saturation 96 % (95-98) 03/03/17 04:20 Calcium 8.0 mg/dL (8.6-10.8) L 03/03/17 04:38 Phosphorus 6.2 mg/dL (2.3-4.7) H 03/03/17 04:38 Magnesium 2.2 mg/dL (1.6-2.6) 03/03/17 04:38 Consult Discharge Plan - Plan Referrals: Chilo Lewis Jr, MD [Primary Care Provider] - (Possible back to [facility] ?)
[2017-03-03] MEDS ORDERED: 0.9 % Sodium Chloride 250 ML IVC PRN (10:18)
[2017-03-03] MEDS ORDERED: 0.9 % Sodium Chloride 1,000 ML PRIME SCH (10:30)
[2017-03-03] MEDS ORDERED: 0.9 % Sodium Chloride 2,000 ML ONE (10:54)
--- NOTE | 2017-03-03 11:08 | Palliative Progress Note ---
Date of Encounter: 03/03/17 Time of Encounter: 11:00 - Assessment and plan (1) Counseling regarding advanced care planning and goals of care Current Visit: Yes Status: Acute Assessment and plan: Updated son Brian briefly via phone regarding breathing trials and potential extubation over the next 24 hours. Explained again, depending on neuro recovery , may still need future discussions re: nutrition and required care going forward. Very quiet on phone, acknowleged information. Will follow up on clinical course on Monday. Please call over weekend if needed. (2) Acute metabolic encephalopathy Current Visit: Yes Status: Acute (3) End stage renal disease Current Visit: Yes Status: Acute Assessment and plan: Nephrology following closely. For HD today (4) Cardiopulmonary arrest Current Visit: No Status: Resolved - Time Spent With Patient Total time spent is greater than 50% in coordination of care (as documented) at patient's floor/unit and/or counseling patient: 25 - 35 minutes - Subjective Interval history: Patient remains on vent - tolerating CPAP trial at present. Opens eyes with stimulation. Still does not follow commands. Maybe slight nod of head for me this am. For HD today. No family present. - Constitutional Vitals: Abnormal lab results RBC 2.75 M/mcL (4.19-5.50) L 03/03/17 04:38 Hgb 7.9 g/dL (12.9-16.9) L 03/03/17 04:38 Hct 24.0 % (37.5-50.1) L 03/03/17 04:38 RDW 17.3 % (11.5-14.5) H 03/03/17 04:38 Band Neutrophils % 8.0 % (0-4) H 02/28/17 16:00 Metamyelocytes % 2.0 % (0) H 02/28/17 16:00 Myelocytes % 4.0 % (0) H 02/28/17 16:00 Nucleated RBCs/100 WBC 0.3 /100 WBC (0) H 03/03/17 04:38 Reactive Lymphocytes Present (Not Present) A 03/03/17 04:38 Smudge Cells Present (Not Present) A 03/01/17 03:00 Polychromasia 1+ (Not Present) A 03/03/17 04:38 Hypochromasia Present (Not Present) A 03/02/17 04:08 Anisocytosis 1+ (Not Present) A 03/03/17 04:38 Macrocytosis Present (Not Present) A 03/03/17 04:38 PT 13.7 Seconds (9.4-12.1) H 02/27/17 17:40 ABG pCO2 62 mmHg (35-45) H 03/03/17 04:20 ABG HCO3 32.7 mEQ/L (21-27) H 03/03/17 04:20 ABG Total CO2 34.6 mEq/L (20-26) H 03/03/17 04:20 ABG Base Excess 5.8 mEq/L (-2.0 to 3.0) H 03/03/17 04:20 Sodium 135 mEq/L (136-145) L 03/03/17 04:38 Potassium 5.0 mEq/L (3.5-4.5) H 03/03/17 04:38 Chloride 97 mEq/L (98-109) L 03/03/17 04:38 BUN 53 mg/dL (8-26) H D 03/03/17 04:38 Creatinine 4.93 mg/dL (0.72-1.25) H 03/03/17 04:38 Est GFR ( Amer) 14 (> 60) L 03/03/17 04:38 Est GFR (Non-Af Amer) 12 (> 60) L 03/03/17 04:38 Glucose 198 mg/dL (70-99) H 03/03/17 04:38 POC Glucose 224 (58-89) H 03/03/17 05:20 Calcium 8.0 mg/dL (8.6-10.8) L 03/03/17 04:38 Ionized Calcium 0.90 mmol/L (1.15-1.35) L 03/03/17 04:38 Phosphorus 6.2 mg/dL (2.3-4.7) H 03/03/17 04:38 Iron 43 mcg/dL (65-175) L 02/27/17 04:22 Transferrin 134 mg/dL (174-364) L 02/27/17 04:22 Ferritin 3147 ng/ml (22-275) H 02/27/17 04:22 Direct Bilirubin 0.6 mg/dL (0.0-0.5) H 02/28/17 03:18 AST 47 Units/L (5-34) H 02/28/17 03:18 Alkaline Phosphatase 135 Units/L (38-126) H 02/28/17 03:18 Troponin I 0.05 ng/mL (0-0.03) H* 02/27/17 17:40 Albumin 2.9 g/dL (3.5-5.0) L 02/28/17 03:18 Globulin 5.1 g/dL (2.4-3.5) H 02/28/17 03:18 Albumin/Globulin Ratio 0.6 (1.1-2.2) L 02/28/17 03:18 Triglycerides 158 mg/dL (< 150) H 02/26/17 04:28 VLDL Cholesterol, Calc 32 mg/dL (< 31) H 02/26/17 04:28 General appearance: Present: no acute distress - Respiratory Respiratory exam: Present: CTAB - Cardiovascular Cardiovascular exam: Present: +S1, +S2 - GI/Abdominal GI/Abdominal exam: Present: diminished bowel sounds, distended, soft - Neurological Exam Additional comments: Spontaneously opens eyes, does not follow commands. Possibly attempted to nod head for me, but very minimal movement - Skin Skin exam: Present: dry, normal color, warm Palliative Quality Palliative Quality: Screen for Code Status: NA (Patient not responsive on vent) , Screen for Goals of Care: NA, Screen for Pain: NA, If Pain Regimen Started, Initiate Bowel Regimen: NA, Screen for Nausea/Vomitting: NA Code Status: 03/01/17 15:35 DNR [Resuscitation Status: Active] [RES] Routine Comment: Resuscitation Status: DNR-Comfort Care-Arrest - Labs CBC & Chem 7: 03/03/17 04:38 03/03/17 04:38 Labs: Laboratory Results - last 24 hr 03/02/17 03/02/17 03/02/17 11:03 17:59 23:32 WBC RBC Hgb Hct MCV MCH MCHC RDW Plt Count MPV Immature Gran % Seg Neutrophils % Lymphocytes % Monocytes % Eosinophils % Basophils % Neutrophils # Lymphocytes # Monocytes # Eosinophils # Basophils # Nucleated RBCs/100 WBC Reactive Lymphocytes Platelet Estimate Polychromasia Anisocytosis Macrocytosis ABG pH ABG pCO2 ABG pO2 ABG HCO3 ABG Total CO2 ABG O2 Saturation ABG Base Excess Respiration Rate Blood Gas Modality Inspired O2 Tidal Volume PEEP Sodium Potassium Chloride Carbon Dioxide BUN Creatinine Est GFR ( Amer) Est GFR (Non-Af Amer) BUN/Creatinine Ratio Glucose POC Glucose 108 H 91 H 132 H Calculated Osmolality Calcium Ionized Calcium Phosphorus Magnesium 03/03/17 03/03/17 03/03/17 04:20 04:38 04:38 WBC 8.7 RBC 2.75 L Hgb 7.9 L Hct 24.0 L MCV 87.3 MCH 28.7 MCHC 32.9 RDW 17.3 H Plt Count 168 MPV 11.6 Immature Gran % 2.5 Seg Neutrophils % 68.4 Lymphocytes % 21.7 Monocytes % 6.5 Eosinophils % 0.7 Basophils % 0.2 Neutrophils # 6.0 Lymphocytes # 1.9 Monocytes # 0.6 Eosinophils # 0.1 Basophils # 0.0 Nucleated RBCs/100 WBC 0.3 H Reactive Lymphocytes Present A Platelet Estimate Normal Polychromasia 1+ A Anisocytosis 1+ A Macrocytosis Present A ABG pH 7.33 ABG pCO2 62 H ABG pO2 88 ABG HCO3 32.7 H ABG Total CO2 34.6 H ABG O2 Saturation 96 ABG Base Excess 5.8 H Respiration Rate 16 Blood Gas Modality VCT Inspired O2 40 Tidal Volume 460 PEEP 5 Sodium 135 L Potassium 5.0 H Chloride 97 L Carbon Dioxide 23 BUN 53 H D Creatinine 4.93 H Est GFR ( Amer) 14 L Est GFR (Non-Af Amer) 12 L BUN/Creatinine Ratio 11 Glucose 198 H POC Glucose Calculated Osmolality 300 Calcium 8.0 L Ionized Calcium Phosphorus Magnesium 03/03/17 03/03/17 03/03/17 04:38 04:38 05:20 WBC RBC Hgb Hct MCV MCH MCHC RDW Plt Count MPV Immature Gran % Seg Neutrophils % Lymphocytes % Monocytes % Eosinophils % Basophils % Neutrophils # Lymphocytes # Monocytes # Eosinophils # Basophils # Nucleated RBCs/100 WBC Reactive Lymphocytes Platelet Estimate Polychromasia Anisocytosis Macrocytosis ABG pH ABG pCO2 ABG pO2 ABG HCO3 ABG Total CO2 ABG O2 Saturation ABG Base Excess Respiration Rate Blood Gas Modality Inspired O2 Tidal Volume PEEP Sodium Potassium Chloride Carbon Dioxide BUN Creatinine Est GFR ( Amer) Est GFR (Non-Af Amer) BUN/Creatinine Ratio Glucose POC Glucose 224 H Calculated Osmolality Calcium Ionized Calcium 0.90 L Phosphorus 6.2 H Magnesium 2.2 - ABG Interpretation ABG results: ABG ABG pH 7.33 pH Units (7.32-7.45) 03/03/17 04:20 ABG pCO2 62 mmHg (35-45) H 03/03/17 04:20 ABG pO2 88 mmHg (85-104) 03/03/17 04:20 ABG O2 Saturation 96 % (95-98) 03/03/17 04:20 PT/INR, D-dimer PT 13.7 Seconds (9.4-12.1) H 02/27/17 17:40 Procedures - Arterial Line Size (Gauge): 20 Consult Discharge Plan - Plan Referrals: Chilo Lewis Jr, MD [Primary Care Provider] - (Possible back to ECF ?)
[2017-03-04] MEDS: Insulin LISPRO 300 UNITS/3 ML VIAL SQ SCH ×4 (01:11→17:58)
[2017-03-04] MEDS: Lacri-Lube 3.5 GM TUBE BOTH EYES SCH ×6 (01:11→20:15)
[2017-03-04 03:44] LABS: ABG Base Excess 10.2 mEq/L (-2.0 to 3.0); ABG HCO3 35.8 mEQ/L (21-27); ABG Oxygen Saturation 93 % (95-98); ABG PCO2 54 mmHg (35-45); ABG PH 7.43 pH Units (7.32-7.45); ABG PO2 65 mmHg (85-104); ABG TCO2 37.5 mEq/L (20-26); Blood Gas FiO2 40 %
[2017-03-04 04:19] LABS: Basophils % 0.1 %; Eosinophils # 0.1 K/mcL (0.0-0.6); Eosinophils % 0.6 %; Hematocrit 24.2 % (37.5-50.1); Immature Granulocytes % 4.6 % (0-4); Lymphocytes # 2.1 K/mcL (0.6-4.6); Lymphocytes % 17.7 %; Mean Corpuscular HGB Conc 33.1 g/dL (31.6-35.5); Mean Corpuscular Volume 87.7 fL (83.0-100.0); Mean Platelet Volume 11.2 fL (9.4-12.4); Monocytes # 0.7 K/mcL (0.0-1.3); Neutrophils # 8.6 K/mcL (1.6-8.9); Nucleated Red Blood Cells 0.5 /100 WBC (0); Platelet Count 160 K/mcL (140-400); Red Blood Count 2.76 M/mcL (4.19-5.50); Red Cell Distribution Width 17.1 % (11.5-14.5)
[2017-03-04] MEDS: Ipratropium/Albuterol Neb 3 ML IH SCH ×6 (04:24→23:33)
[2017-03-04 04:52] LABS: Anisocytosis 1+ (Not Present); Large Platelets Present (Not Present); Microcytosis Present (Not Present); Platelet Estimate Normal (Normal)
[2017-03-04 05:23] LABS: Magnesium 2.2 mg/dL (1.6-2.6)
[2017-03-04 05:24] LABS: Phosphorous 2.9 mg/dL (2.3-4.7); Potassium 5.1 mEq/L (3.5-4.5)
[2017-03-04] MEDS ORDERED: *HR* FentaNYL (PF) 100 MCG/2 ML VIAL IVP ONE ×3 (05:43→11:25)
[2017-03-04] MEDS ORDERED: *HR* FentaNYL (PF) 100 MCG/2 ML VIAL ONE ×3 (05:46→11:22)
[2017-03-04] MEDS: *HR* Heparin 5,000 UNIT/ML VIAL SQ SCH ×3 (06:26→20:53)
[2017-03-04] MEDS: Dexmedetomidine HCl 400 MCG/100 ML MLS IVC SCH ×4 (06:37→20:51)
[2017-03-04] MEDS: Budesonide/Formoterol 160/4.5 MDI IH SCH ×2 (08:03→19:40)
--- NOTE | 2017-03-04 08:26 | Nephrology Progress Note ---
Date of Encounter: 03/04/17 Time of Encounter: 08:24 - Assessment and Plan (1) ESRD on dialysis Current Visit: Yes Status: Chronic The patient continues to exhibit signs of anoxic brain injury. He will continue to be supported with dialysis every Monday. (2) Atrial fibrillation Current Visit: No Status: Chronic Qualifiers: Atrial fibrillation type: paroxysmal Qualified Code(s): I48.0 - Paroxysmal atrial fibrillation (3) Sepsis due to Klebsiella Current Visit: Yes Status: Acute Subjective Principal diagnosis: Cardiac arrest Interval history: The patient remains poorly responsive on the ventilator. He did receive dialysis yesterday. Objective - Vital Signs Vital signs: Vital Signs Temp Pulse Resp BP Pulse Ox 03/04/17 06:00 84 23 172/78 92 03/04/17 05:43 23 172/78 92 03/04/17 05:00 83 23 189/76 94 03/04/17 04:25 16 145/63 99 03/04/17 04:00 73 20 155/63 99 03/04/17 03:00 100.3 F H 75 22 148/64 98 03/04/17 02:12 20 155/63 99 03/04/17 02:00 76 20 155/63 99 03/04/17 01:00 76 18 133/62 94 03/04/17 00:00 99.8 F H 73 18 141/66 95 03/03/17 23:50 18 141/66 95 03/03/17 23:00 83 24 130/66 95 03/03/17 22:02 20 140/63 95 03/03/17 22:00 84 20 140/63 95 03/03/17 21:00 74 18 118/73 95 03/03/17 20:25 17 127/96 95 03/03/17 20:00 80 18 137/63 97 03/03/17 19:00 80 18 137/63 97 03/03/17 18:40 98.8 F 18 123/67 03/03/17 18:30 104/66 03/03/17 18:15 101/67 03/03/17 18:00 80 20 108/70 97 03/03/17 17:45 127/75 03/03/17 17:37 98.4 F 03/03/17 17:30 116/67 03/03/17 17:15 123/63 03/03/17 17:00 77 16 123/65 97 03/03/17 16:45 129/87 03/03/17 16:40 18 120/62 90 03/03/17 16:30 133/69 03/03/17 16:15 123/63 03/03/17 16:00 71 18 126/69 93 03/03/17 15:45 128/68 03/03/17 15:30 98.5 F 20 149/70 03/03/17 15:00 77 19 99/61 92 03/03/17 14:00 82 15 131/78 94 03/03/17 13:00 69 17 130/72 93 03/03/17 12:00 97.9 F 68 17 147/74 97 03/03/17 11:50 16 134/71 96 03/03/17 11:30 98.8 F 03/03/17 11:00 66 12 132/69 100 03/03/17 10:00 67 14 133/67 97 03/03/17 09:00 61 14 129/62 94 Intake and Output 03/03/17 03/04/17 03/04/17 23:59 07:59 15:59 Intake Total 291 / 291 609 / 609 Output Total 3650 / 3650 230 / 230 Balance -3359 / -3359 379 / 379 Intake: IV Fluids 100 / 100 100 / 100 PRECEDEX 400 mcg In 100 100 / 100 100 / 100 ml @ 0.2 MCG/KG/HR 5.775 mls/hr IVC .[id number] [facility] Rx#:[id number] Tube Feeding 191 / 191 509 / 509 Output: Urine 0 / 0 Total Dialysis (HD) 3600 / 3600 Output Rectal Tube 50 / 50 230 / 230 Other: Blood Glucose* 128 Hemodialysis Net Fluid 3000 Removed (mL) - General Appearance Exam: Patient is poorly responsive. Lungs coarse breath sounds. Heart regular rate and rhythm. Abdomen is soft. There is no lower extremity swelling. There is an AV fistula in the right upper extremity. - Lab 03/04/17 04:00 03/04/17 05:00 Most recent lab results ABG pH 7.43 pH Units (7.32-7.45) 03/04/17 03:30 ABG pCO2 54 mmHg (35-45) H 03/04/17 03:30 ABG pO2 65 mmHg (85-104) L 03/04/17 03:30 ABG HCO3 35.8 mEQ/L (21-27) H 03/04/17 03:30 ABG O2 Saturation 93 % (95-98) L 03/04/17 03:30 Calcium 8.0 mg/dL (8.6-10.8) L 03/04/17 05:00 Phosphorus 2.9 mg/dL (2.3-4.7) D 03/04/17 05:00 Magnesium 2.2 mg/dL (1.6-2.6) 03/04/17 05:00 Consult Discharge Plan - Plan Referrals: Chilo Lewis Jr, MD [Primary Care Provider] - (Possible back to ECF ?)
[2017-03-04] MEDS ORDERED: methylPREDNISolone 125 MG/2 ML VIAL ONE (08:50)
[2017-03-04] MEDS: Pantoprazole 40 MG VIAL IVP SCH (09:16)
[2017-03-04] MEDS ORDERED: methylPREDNISolone 125 MG/2 ML VIAL IVP ONE (09:35)
[2017-03-04 09:48] LABS: ABG HCO3 32.4 mEQ/L (21-27); ABG Oxygen Saturation 96 % (95-98); ABG PCO2 50 mmHg (35-45); ABG PH 7.42 pH Units (7.32-7.45); ABG PO2 79 mmHg (85-104); ABG TCO2 33.9 mEq/L (20-26)
[2017-03-04 09:49] LABS: Blood Gas FiO2 50 %
--- NOTE | 2017-03-04 11:34 | Palliative Progress Note ---
Date of Encounter: 03/04/17 Time of Encounter: 07:20 - Assessment and plan (1) Anoxic brain injury Current Visit: Yes Status: Acute Assessment and plan: Secondary to cardiac arrest. Patient is not showing any purposeful signs of movement at this time. Gnosis remains very poor. (2) ESRD on dialysis Current Visit: Yes Status: Chronic Assessment and plan: Nephrology is following patient continues to get dialysis. (3) Atrial fibrillation Current Visit: No Status: Chronic Assessment and plan: Being followed by the intensive care team. Qualifiers: Atrial fibrillation type: paroxysmal Qualified Code(s): I48.0 - Paroxysmal atrial fibrillation (4) Acute respiratory failure with hypoxia and hypercarbia Current Visit: No Status: Acute Assessment and plan: Patient is currently on a CPAP trial. Will be extubated if possible. (5) Counseling regarding advanced care planning and goals of care Current Visit: Yes Status: Acute Assessment and plan: Patient was changed back to full CODE STATUS yesterday. Not present for further discussions. We will follow up on Monday. - Time Spent With Patient Total time spent is greater than 50% in coordination of care (as documented) at patient's floor/unit and/or counseling patient: - Subjective Interval history: Patient on ventilator on CPAP trial at this time continues to show no purposeful movement per the staff. Does appear to be comfortable however. - Constitutional Vitals: Abnormal lab results WBC 12.1 K/mcL (4.3-11.1) H 03/04/17 04:00 RBC 2.76 M/mcL (4.19-5.50) L 03/04/17 04:00 Hgb 8.0 g/dL (12.9-16.9) L 03/04/17 04:00 Hct 24.2 % (37.5-50.1) L 03/04/17 04:00 RDW 17.1 % (11.5-14.5) H 03/04/17 04:00 Immature Gran % 4.6 % (0-4) H 03/04/17 04:00 Band Neutrophils % 8.0 % (0-4) H 02/28/17 16:00 Metamyelocytes % 2.0 % (0) H 02/28/17 16:00 Myelocytes % 4.0 % (0) H 02/28/17 16:00 Nucleated RBCs/100 WBC 0.5 /100 WBC (0) H 03/04/17 04:00 Reactive Lymphocytes Present (Not Present) A 03/03/17 04:38 Smudge Cells Present (Not Present) A 03/01/17 03:00 Large Platelets Present (Not Present) A 03/04/17 04:00 Polychromasia 1+ (Not Present) A 03/03/17 04:38 Hypochromasia Present (Not Present) A 03/02/17 04:08 Anisocytosis 1+ (Not Present) A 03/04/17 04:00 Microcytosis Present (Not Present) A 03/04/17 04:00 Macrocytosis Present (Not Present) A 03/03/17 04:38 PT 13.7 Seconds (9.4-12.1) H 02/27/17 17:40 ABG pCO2 50 mmHg (35-45) H 03/04/17 09:36 ABG pO2 79 mmHg (85-104) L 03/04/17 09:36 ABG HCO3 32.4 mEQ/L (21-27) H 03/04/17 09:36 ABG Total CO2 33.9 mEq/L (20-26) H 03/04/17 09:36 ABG Base Excess 7.0 mEq/L (-2.0 to 3.0) H 03/04/17 09:36 Sodium 134 mEq/L (136-145) L 03/04/17 05:00 Potassium 5.1 mEq/L (3.5-4.5) H 03/04/17 05:00 Chloride 97 mEq/L (98-109) L 03/04/17 05:00 BUN 39 mg/dL (8-26) H D 03/04/17 05:00 Creatinine 4.11 mg/dL (0.72-1.25) H 03/04/17 05:00 Est GFR ( Amer) 17 (> 60) L 03/04/17 05:00 Est GFR (Non-Af Amer) 14 (> 60) L 03/04/17 05:00 Glucose 125 mg/dL (70-99) H 03/04/17 05:00 POC Glucose 127 (58-89) H 03/04/17 04:17 Calcium 8.0 mg/dL (8.6-10.8) L 03/04/17 05:00 Ionized Calcium 0.87 mmol/L (1.15-1.35) L 03/03/17 13:07 Iron 43 mcg/dL (65-175) L 02/27/17 04:22 Transferrin 134 mg/dL (174-364) L 02/27/17 04:22 Ferritin 3147 ng/ml (22-275) H 02/27/17 04:22 Direct Bilirubin 0.6 mg/dL (0.0-0.5) H 02/28/17 03:18 AST 47 Units/L (5-34) H 02/28/17 03:18 Alkaline Phosphatase 135 Units/L (38-126) H 02/28/17 03:18 Troponin I 0.05 ng/mL (0-0.03) H* 02/27/17 17:40 Albumin 2.9 g/dL (3.5-5.0) L 02/28/17 03:18 Globulin 5.1 g/dL (2.4-3.5) H 02/28/17 03:18 Albumin/Globulin Ratio 0.6 (1.1-2.2) L 02/28/17 03:18 Triglycerides 158 mg/dL (< 150) H 02/26/17 04:28 VLDL Cholesterol, Calc 32 mg/dL (< 31) H 02/26/17 04:28 General appearance: Present: no acute distress - Head Head exam: Present: atraumatic, normal inspection - Eye Eye exam: Present: normal appearance - ENT ENT exam: Present: mucous membranes moist - Respiratory Respiratory exam: Present: decreased breath sounds, rhonchi (On vent) - Cardiovascular Cardiovascular exam: Present: irregular rhythm - GI/Abdominal GI/Abdominal exam: Present: hypoactive bowel sounds, soft - Extremities Exam Extremities exam: Absent: tenderness - Neurological Exam Neurological exam: Present: altered - Psychiatric Psychiatric exam: Absent: agitated, anxious - Skin Skin exam: Present: dry, warm Palliative Quality Palliative Quality: Screen for Code Status: NA (Patient not responsive on vent) , Screen for Goals of Care: NA, Screen for Pain: NA, If Pain Regimen Started, Initiate Bowel Regimen: NA, Screen for Nausea/Vomitting: NA Code Status: 03/01/17 15:35 DNR [Resuscitation Status: Active] [RES] Routine Comment: Resuscitation Status: DNR-Comfort Care-Arrest 03/03/17 12:18 CODE [Resuscitation Status: Active] [RES] Routine Comment: Resuscitation Status: Full Code - Labs CBC & Chem 7: 03/04/17 04:00 03/04/17 05:00 Labs: Laboratory Results - last 24 hr 03/03/17 03/03/17 03/03/17 11:47 13:07 17:10 WBC RBC Hgb Hct MCV MCH MCHC RDW Plt Count MPV Immature Gran % Seg Neutrophils % Lymphocytes % Monocytes % Eosinophils % Basophils % Neutrophils # Lymphocytes # Monocytes # Eosinophils # Basophils # Nucleated RBCs/100 WBC Platelet Estimate Large Platelets Anisocytosis Microcytosis ABG pH ABG pCO2 ABG pO2 ABG HCO3 ABG Total CO2 ABG O2 Saturation ABG Base Excess Blood Gas Modality Inspired O2 Sodium Potassium Chloride Carbon Dioxide BUN Creatinine Est GFR ( Amer) Est GFR (Non-Af Amer) BUN/Creatinine Ratio Glucose POC Glucose 127 H 128 H Calculated Osmolality Calcium Ionized Calcium 0.87 L Phosphorus Magnesium Specimen Rejected 03/04/17 03/04/17 03/04/17 00:30 03:30 04:00 WBC 12.1 H RBC 2.76 L Hgb 8.0 L Hct 24.2 L MCV 87.7 MCH 29.0 MCHC 33.1 RDW 17.1 H Plt Count 160 MPV 11.2 Immature Gran % 4.6 H Seg Neutrophils % 71.0 Lymphocytes % 17.7 Monocytes % 6.0 Eosinophils % 0.6 Basophils % 0.1 Neutrophils # 8.6 Lymphocytes # 2.1 Monocytes # 0.7 Eosinophils # 0.1 Basophils # 0.0 Nucleated RBCs/100 WBC 0.5 H Platelet Estimate Normal Large Platelets Present A Anisocytosis 1+ A Microcytosis Present A ABG pH 7.43 ABG pCO2 54 H ABG pO2 65 L ABG HCO3 35.8 H ABG Total CO2 37.5 H ABG O2 Saturation 93 L ABG Base Excess 10.2 H Blood Gas Modality VCT Inspired O2 40 Sodium Potassium Chloride Carbon Dioxide BUN Creatinine Est GFR ( Amer) Est GFR (Non-Af Amer) BUN/Creatinine Ratio Glucose POC Glucose 178 H Calculated Osmolality Calcium Ionized Calcium Phosphorus Magnesium Specimen Rejected 03/04/17 03/04/17 03/04/17 04:00 04:17 05:00 WBC RBC Hgb Hct MCV MCH MCHC RDW Plt Count MPV Immature Gran % Seg Neutrophils % Lymphocytes % Monocytes % Eosinophils % Basophils % Neutrophils # Lymphocytes # Monocytes # Eosinophils # Basophils # Nucleated RBCs/100 WBC Platelet Estimate Large Platelets Anisocytosis Microcytosis ABG pH ABG pCO2 ABG pO2 ABG HCO3 ABG Total CO2 ABG O2 Saturation ABG Base Excess Blood Gas Modality Inspired O2 Sodium 134 L Potassium 5.1 H Chloride 97 L Carbon Dioxide 27 BUN 39 H D Creatinine 4.11 H Est GFR ( Amer) 17 L Est GFR (Non-Af Amer) 14 L BUN/Creatinine Ratio 9 Glucose 125 H POC Glucose 127 H Calculated Osmolality 289 Calcium 8.0 L Ionized Calcium Phosphorus 2.9 D Magnesium 2.2 Specimen Rejected Hemolyzed 03/04/17 09:36 WBC RBC Hgb Hct MCV MCH MCHC RDW Plt Count MPV Immature Gran % Seg Neutrophils % Lymphocytes % Monocytes % Eosinophils % Basophils % Neutrophils # Lymphocytes # Monocytes # Eosinophils # Basophils # Nucleated RBCs/100 WBC Platelet Estimate Large Platelets Anisocytosis Microcytosis ABG pH 7.42 ABG pCO2 50 H ABG pO2 79 L ABG HCO3 32.4 H ABG Total CO2 33.9 H ABG O2 Saturation 96 ABG Base Excess 7.0 H Blood Gas Modality bipap Inspired O2 50 Sodium Potassium Chloride Carbon Dioxide BUN Creatinine Est GFR ( Amer) Est GFR (Non-Af Amer) BUN/Creatinine Ratio Glucose POC Glucose Calculated Osmolality Calcium Ionized Calcium Phosphorus Magnesium Specimen Rejected - ABG Interpretation ABG results: ABG ABG pH 7.42 pH Units (7.32-7.45) 03/04/17 09:36 ABG pCO2 50 mmHg (35-45) H 03/04/17 09:36 ABG pO2 79 mmHg (85-104) L 03/04/17 09:36 ABG O2 Saturation 96 % (95-98) 03/04/17 09:36 PT/INR, D-dimer PT 13.7 Seconds (9.4-12.1) H 02/27/17 17:40 Procedures - Arterial Line Size (Gauge): 20 Consult Discharge Plan - Plan Referrals: Chilo Lewis Jr, MD [Primary Care Provider] - (Possible back to ECF ?)
[2017-03-04] MEDS: FentaNYL (PF) 1,000 MCG in 0.9 % Sodium Chloride 80 ML IVC SCH (11:47)
[2017-03-04] MEDS ORDERED: 0.9 % Sodium Chloride 250 ML IVC PRN (13:01)
--- NOTE | 2017-03-04 13:30 | Pulmonology Progress Note ---
Date of Encounter: 03/04/17 Time of Encounter: 13:30 Assessment and Plan (1) Acute respiratory failure with hypoxia and hypercarbia Current Visit: No Status: Acute Neuropsych: Anoxic brain injury status post cardiac arrest he is displaying some slow improvement in neurological function which is encouraging I suspect he will be left with a serious neurologic impairment but only time will tell this. Pulm: Acute hypoxic respiratory failure extubated today now on positive airway pressure support suspect large component of pulmonary edema Cards: Status post cardiac arrest (asystole); patient has recovered from this now is hypertensive I am adjusting IV formulations of his medications for blood pressure less than 140 FEN-GI: Smallbore feeding tube was attempted today but was unsuccessful 2. Reattempt tomorrow when patient less agitated and potentially more cooperative. If this fails would likely need to progress to PEG placement. Keep nothing by mouth for now Renal: End-stage renal disease electrolytes plan for ultrafiltration today for volume management given hypoxia from pulmonary edema ID: Slight bump in WBC count overnight without fever we will continue to monitor culture of spikes fever Heme/Onc: DVT prophylaxis given H&H and platelets are stable Endo: Glucose monitored sliding scale insulin as needed for hyperglycemia Integ/MSK: Care per routine ICU protocol all lines examined without evidence of infection CODE: Full; I updated the daughter Charley (2) ESRD on dialysis Current Visit: Yes Status: Chronic (3) DVT prophylaxis Current Visit: Yes Status: Acute (4) CAD (coronary artery disease) Current Visit: No Status: Chronic Qualifiers: Coronary Disease-Associated Artery/Lesion type: [place] artery [place] vs. transplanted heart: [place] heart Associated angina: without angina Qualified Code(s): I25.10 - Atherosclerotic heart disease of [place] coronary artery without angina pectoris (5) COPD exacerbation Current Visit: No Status: Acute (6) Counseling regarding advanced care planning and goals of care Current Visit: Yes Status: Acute (7) Anoxic brain injury Current Visit: Yes Status: Acute Subjective Principal diagnosis: Cardiac arrest Interval history: Patient had completed 2 hours on CPAP trial and was doing quite well so was liberated he became acutely agitated hypoxic in respiratory rate and blood pressure all increased is placed on positive airway pressure support with increase in sedation and blood pressure control and overall improvement remains on positive airway pressure support at this time. Objective PUL Vital signs: Last Vital Signs Temp 99.8 F H 03/04/17 12:00 Pulse 77 03/04/17 13:00 Resp 24 03/04/17 13:00 BP 147/83 03/04/17 13:00 Pulse Ox 100 03/04/17 11:03 General appearance: other (When examined at this time he is calm he remains unpurposeful in his movements but does have spontaneous movements of all extremities) Eyes: nonicteric Effort: mildly labored Auscultation: bilateral: rales Cardiovascular: regular rate and rhythm Gastrointestinal: normoactive bowel sounds, soft, non-tender Integumentary: normal non-focal exam, pupils equal and round anxious Ventilator Settings Ventilator Settings: Ventilator Settings, Last 8 Hours Ventilator Mode CPAP Ventilator Mode CPAP Ventilator Mode CPAP Ventilator Mode CPAP Actual Respiratory Rate 26 Actual Respiratory Rate 22 Actual Respiratory Rate 26 Positive End Expiratory 5 Pressure Positive End Expiratory 5 Pressure Positive End Expiratory 5 Pressure Peak Inspiratory Airway 12 Pressure Peak Inspiratory Airway 11 Pressure Peak Inspiratory Airway 12 Pressure Results - Laboratory Findings CBC and BMP: 03/04/17 04:00 03/04/17 05:00 ABG ABG pH 7.42 pH Units (7.32-7.45) 03/04/17 09:36 ABG pCO2 50 mmHg (35-45) H 03/04/17 09:36 ABG pO2 79 mmHg (85-104) L 03/04/17 09:36 ABG O2 Saturation 96 % (95-98) 03/04/17 09:36 PT/INR, D-dimer PT 13.7 Seconds (9.4-12.1) H 02/27/17 17:40 Abnormal lab findings: Abnormal lab results WBC 12.1 K/mcL (4.3-11.1) H 03/04/17 04:00 RBC 2.76 M/mcL (4.19-5.50) L 03/04/17 04:00 Hgb 8.0 g/dL (12.9-16.9) L 03/04/17 04:00 Hct 24.2 % (37.5-50.1) L 03/04/17 04:00 RDW 17.1 % (11.5-14.5) H 03/04/17 04:00 Immature Gran % 4.6 % (0-4) H 03/04/17 04:00 Band Neutrophils % 8.0 % (0-4) H 02/28/17 16:00 Metamyelocytes % 2.0 % (0) H 02/28/17 16:00 Myelocytes % 4.0 % (0) H 02/28/17 16:00 Nucleated RBCs/100 WBC 0.5 /100 WBC (0) H 03/04/17 04:00 Reactive Lymphocytes Present (Not Present) A 03/03/17 04:38 Smudge Cells Present (Not Present) A 03/01/17 03:00 Large Platelets Present (Not Present) A 03/04/17 04:00 Polychromasia 1+ (Not Present) A 03/03/17 04:38 Hypochromasia Present (Not Present) A 03/02/17 04:08 Anisocytosis 1+ (Not Present) A 03/04/17 04:00 Microcytosis Present (Not Present) A 03/04/17 04:00 Macrocytosis Present (Not Present) A 03/03/17 04:38 PT 13.7 Seconds (9.4-12.1) H 02/27/17 17:40 ABG pCO2 50 mmHg (35-45) H 03/04/17 09:36 ABG pO2 79 mmHg (85-104) L 03/04/17 09:36 ABG HCO3 32.4 mEQ/L (21-27) H 03/04/17 09:36 ABG Total CO2 33.9 mEq/L (20-26) H 03/04/17 09:36 ABG Base Excess 7.0 mEq/L (-2.0 to 3.0) H 03/04/17 09:36 Sodium 134 mEq/L (136-145) L 03/04/17 05:00 Potassium 5.1 mEq/L (3.5-4.5) H 03/04/17 05:00 Chloride 97 mEq/L (98-109) L 03/04/17 05:00 BUN 39 mg/dL (8-26) H D 03/04/17 05:00 Creatinine 4.11 mg/dL (0.72-1.25) H 03/04/17 05:00 Est GFR ( Amer) 17 (> 60) L 03/04/17 05:00 Est GFR (Non-Af Amer) 14 (> 60) L 03/04/17 05:00 Glucose 125 mg/dL (70-99) H 03/04/17 05:00 POC Glucose 168 (58-89) H 03/04/17 12:35 Calcium 8.0 mg/dL (8.6-10.8) L 03/04/17 05:00 Ionized Calcium 0.87 mmol/L (1.15-1.35) L 03/03/17 13:07 Iron 43 mcg/dL (65-175) L 02/27/17 04:22 Transferrin 134 mg/dL (174-364) L 02/27/17 04:22 Ferritin 3147 ng/ml (22-275) H 02/27/17 04:22 Direct Bilirubin 0.6 mg/dL (0.0-0.5) H 02/28/17 03:18 AST 47 Units/L (5-34) H 02/28/17 03:18 Alkaline Phosphatase 135 Units/L (38-126) H 02/28/17 03:18 Troponin I 0.05 ng/mL (0-0.03) H* 02/27/17 17:40 Albumin 2.9 g/dL (3.5-5.0) L 02/28/17 03:18 Globulin 5.1 g/dL (2.4-3.5) H 02/28/17 03:18 Albumin/Globulin Ratio 0.6 (1.1-2.2) L 02/28/17 03:18 Triglycerides 158 mg/dL (< 150) H 02/26/17 04:28 VLDL Cholesterol, Calc 32 mg/dL (< 31) H 02/26/17 04:28 - Clinical Findings Intake & Output: Intake & Output 03/03/17 03/04/17 03/04/17 23:59 07:59 15:59 Intake Total 291 / 291 709 / 709 100 / 100 Output Total 3650 / 3650 230 / 230 Balance -3359 / -3359 479 / 479 100 / 100 Pulmonary Procedures - Arterial Line Size (Gauge): 20 Consult Discharge Plan - Plan Referrals: Chilo Lewis Jr, MD [Primary Care Provider] - (Possible back to ECF ?)
[2017-03-04] MEDS: Chlorhexidine Rinse 15 ML MOUTHWASH MM SCH ×2 (14:26→20:19)
[2017-03-04] MEDS: cloNIDine HCl 0.1 MG TABLET PO SCH (14:26)
[2017-03-04] MEDS: amLODIPine 5 MG TABLET PO SCH (14:26)
[2017-03-04] MEDS ORDERED: *HR* Metoprolol 5 MG/5 ML VIAL IVP SCH (14:30)
[2017-03-04] MEDS ORDERED: 0.9 % Sodium Chloride 2,000 ML ONE (16:12)
[2017-03-04] MEDS: *HR* Metoprolol 5 MG/5 ML VIAL IVP SCH (20:53)
[2017-03-05] MEDS: Lacri-Lube 3.5 GM TUBE BOTH EYES SCH ×4 (01:11→13:03)
[2017-03-05] MEDS: Insulin LISPRO 300 UNITS/3 ML VIAL SQ SCH ×4 (01:15→17:55)
[2017-03-05 03:56] LABS: Basophils % 0.2 %; Hematocrit 25.9 % (37.5-50.1); Hemoglobin 8.2 g/dL (12.9-16.9); Immature Granulocytes % 4.4 % (0-4); Lymphocytes # 1.4 K/mcL (0.6-4.6); Lymphocytes % 9.9 %; Mean Corpuscular HGB Conc 31.7 g/dL (31.6-35.5); Mean Corpuscular Hemoglobin 27.7 pg (28.0-33.3); Mean Corpuscular Volume 87.5 fL (83.0-100.0); Monocytes # 0.4 K/mcL (0.0-1.3); Monocytes % 2.8 %; Nucleated Red Blood Cells 0.2 /100 WBC (0); Platelet Count 195 K/mcL (140-400); Red Blood Count 2.96 M/mcL (4.19-5.50); Red Cell Distribution Width 17.3 % (11.5-14.5); Segmented Neutrophils % 82.7 %
[2017-03-05] MEDS: Ipratropium/Albuterol Neb 3 ML IH SCH ×5 (04:25→20:36)
[2017-03-05 04:48] LABS: Platelet Estimate Normal (Normal); Target Cells 1+ (Not Present)
[2017-03-05 06:11] LABS: Calcium 9.1 mg/dL (8.6-10.8); Magnesium 2.3 mg/dL (1.6-2.6)
[2017-03-05 06:13] LABS: Phosphorous 5.5 mg/dL (2.3-4.7); Potassium 5.4 mEq/L (3.5-4.5)
[2017-03-05] MEDS: *HR* Metoprolol 5 MG/5 ML VIAL IVP SCH ×2 (06:25→10:25)
[2017-03-05] MEDS: *HR* Heparin 5,000 UNIT/ML VIAL SQ SCH ×3 (06:26→21:22)
[2017-03-05] MEDS: Dexmedetomidine HCl 400 MCG/100 ML MLS IVC SCH ×3 (06:26→21:24)
[2017-03-05] MEDS: Budesonide/Formoterol 160/4.5 MDI IH SCH (07:40)
--- NOTE | 2017-03-05 08:12 | Pulmonology Progress Note ---
Date of Encounter: 03/05/17 Time of Encounter: 08:11 Assessment and Plan (1) Acute respiratory failure with hypoxia and hypercarbia Current Visit: No Status: Acute Neuropsych: Anoxic brain injury status post cardiac arrest he is displaying some slow improvement in neurological function which is encouraging I suspect he will be left with a serious neurologic impairment but only time will tell this. Continue Precedex for agitation. Wean narcotic as tolerated Pulm: Acute hypoxic respiratory failure extubated today now on positive airway pressure support suspect large component of pulmonary edema Cards: Status post cardiac arrest (asystole); patient has recovered from this now is hypertensive I am adjusting IV formulations of his medications for blood pressure less than 140 FEN-GI: Nothing by mouth for now Reattempt nasogastric feeding tube when patient less agitated and potentially more cooperative. If this fails could consider PEG placement. Renal: End-stage renal disease electrolytes nephrology onboard can resume dialysis schedule ID: Persistent leukocytosis without fever cultures have been and obtained including for Clostridium difficile toxin Heme/Onc: DVT prophylaxis given H&H and platelets are stable Endo: Glucose monitored sliding scale insulin as needed for hyperglycemia Integ/MSK: Care per routine ICU protocol all lines examined without evidence of infection CODE: Full Stable for transfer to [facility].Report Called to admitting hospitalist Dr Regan (2) ESRD on dialysis Current Visit: Yes Status: Chronic (3) DVT prophylaxis Current Visit: Yes Status: Acute (4) CAD (coronary artery disease) Current Visit: No Status: Chronic Qualifiers: Coronary Disease-Associated Artery/Lesion type: [place] artery [place] vs. transplanted heart: [place] heart Associated angina: without angina Qualified Code(s): I25.10 - Atherosclerotic heart disease of [place] coronary artery without angina pectoris (5) COPD exacerbation Current Visit: No Status: Acute (6) Counseling regarding advanced care planning and goals of care Current Visit: Yes Status: Acute (7) Anoxic brain injury Current Visit: Yes Status: Acute Subjective Principal diagnosis: Cardiac arrest Interval history: Respiratory status is stabilized after dialysis he was kept on BiPAP overnight but now off he continues to have increase in sensorium and more purposeful movements now but still unable to answer questions or follow commands he was noted to have increase in the frequency of bowel movements and a rectal tube was placed Objective PUL Vital signs: Last Vital Signs Temp 97.5 F L 03/05/17 07:52 Pulse 72 03/05/17 07:00 Resp 18 03/05/17 07:00 BP 154/76 03/05/17 07:00 Pulse Ox 96 03/05/17 07:00 General appearance: agitated ([place]) Auscultation: bilateral: rales Cardiovascular: regular rate and rhythm Gastrointestinal: normoactive bowel sounds, soft Extremities: no edema non-focal exam, pupils equal and round Results - Laboratory Findings CBC and BMP: 03/05/17 03:34 03/05/17 05:28 ABG ABG pH 7.42 pH Units (7.32-7.45) 03/04/17 09:36 ABG pCO2 50 mmHg (35-45) H 03/04/17 09:36 ABG pO2 79 mmHg (85-104) L 03/04/17 09:36 ABG O2 Saturation 96 % (95-98) 03/04/17 09:36 PT/INR, D-dimer PT 13.7 Seconds (9.4-12.1) H 02/27/17 17:40 Abnormal lab findings: Abnormal lab results WBC 14.5 K/mcL (4.3-11.1) H 03/05/17 03:34 RBC 2.96 M/mcL (4.19-5.50) L 03/05/17 03:34 Hgb 8.2 g/dL (12.9-16.9) L 03/05/17 03:34 Hct 25.9 % (37.5-50.1) L 03/05/17 03:34 MCH 27.7 pg (28.0-33.3) L 03/05/17 03:34 RDW 17.3 % (11.5-14.5) H 03/05/17 03:34 Immature Gran % 4.4 % (0-4) H 03/05/17 03:34 Band Neutrophils % 8.0 % (0-4) H 02/28/17 16:00 Metamyelocytes % 2.0 % (0) H 02/28/17 16:00 Myelocytes % 4.0 % (0) H 02/28/17 16:00 Neutrophils # 12.0 K/mcL (1.6-8.9) H 03/05/17 03:34 Nucleated RBCs/100 WBC 0.2 /100 WBC (0) H 03/05/17 03:34 Reactive Lymphocytes Present (Not Present) A 03/03/17 04:38 Smudge Cells Present (Not Present) A 03/01/17 03:00 Large Platelets Present (Not Present) A 03/04/17 04:00 Polychromasia 1+ (Not Present) A 03/03/17 04:38 Hypochromasia Present (Not Present) A 03/02/17 04:08 Anisocytosis 1+ (Not Present) A 03/04/17 04:00 Microcytosis Present (Not Present) A 03/04/17 04:00 Macrocytosis Present (Not Present) A 03/03/17 04:38 Target Cells 1+ (Not Present) A 03/05/17 03:34 PT 13.7 Seconds (9.4-12.1) H 02/27/17 17:40 ABG pCO2 50 mmHg (35-45) H 03/04/17 09:36 ABG pO2 79 mmHg (85-104) L 03/04/17 09:36 ABG HCO3 32.4 mEQ/L (21-27) H 03/04/17 09:36 ABG Total CO2 33.9 mEq/L (20-26) H 03/04/17 09:36 ABG Base Excess 7.0 mEq/L (-2.0 to 3.0) H 03/04/17 09:36 Potassium 5.4 mEq/L (3.5-4.5) H 03/05/17 05:28 Chloride 97 mEq/L (98-109) L 03/05/17 05:28 BUN 62 mg/dL (8-26) H D 03/05/17 05:28 Creatinine 6.02 mg/dL (0.72-1.25) H 03/05/17 05:28 Est GFR ( Amer) 11 (> 60) L 03/05/17 05:28 Est GFR (Non-Af Amer) 9 (> 60) L 03/05/17 05:28 Glucose 145 mg/dL (70-99) H 03/05/17 05:28 POC Glucose 153 (58-89) H 03/05/17 06:12 Calculated Osmolality 304 (280-300) H 03/05/17 05:28 Ionized Calcium 0.87 mmol/L (1.15-1.35) L 03/03/17 13:07 Phosphorus 5.5 mg/dL (2.3-4.7) H D 03/05/17 05:28 Iron 43 mcg/dL (65-175) L 02/27/17 04:22 Transferrin 134 mg/dL (174-364) L 02/27/17 04:22 Ferritin 3147 ng/ml (22-275) H 02/27/17 04:22 Direct Bilirubin 0.6 mg/dL (0.0-0.5) H 02/28/17 03:18 AST 47 Units/L (5-34) H 02/28/17 03:18 Alkaline Phosphatase 135 Units/L (38-126) H 02/28/17 03:18 Troponin I 0.05 ng/mL (0-0.03) H* 02/27/17 17:40 Albumin 2.9 g/dL (3.5-5.0) L 02/28/17 03:18 Globulin 5.1 g/dL (2.4-3.5) H 02/28/17 03:18 Albumin/Globulin Ratio 0.6 (1.1-2.2) L 02/28/17 03:18 Triglycerides 158 mg/dL (< 150) H 02/26/17 04:28 VLDL Cholesterol, Calc 32 mg/dL (< 31) H 02/26/17 04:28 - Clinical Findings Intake & Output: Intake & Output 03/04/17 03/05/17 03/05/17 23:59 07:59 15:59 Intake Total 700 / 700 100 / 100 Output Total 4100 / 4100 0 / 0 Balance -3400 / -3400 100 / 100 Weight 99.518 kg Pulmonary Procedures - Arterial Line Size (Gauge): 20 Consult Discharge Plan - Plan Referrals: Chilo Lewis Jr, MD [Primary Care Provider] - (Possible back to [facility] ?)
[2017-03-05] MEDS ORDERED: Lacri-Lube 3.5 GM TUBE BOTH EYES PRN (10:17)
[2017-03-05] MEDS: amLODIPine 5 MG TABLET PO SCH (10:21)
[2017-03-05] MEDS: cloNIDine HCl 0.1 MG TABLET PO SCH (10:21)
[2017-03-05] MEDS: Chlorhexidine Rinse 15 ML MOUTHWASH MM SCH (10:25)
[2017-03-05] MEDS: Pantoprazole 40 MG VIAL IVP SCH (10:25)
[2017-03-05] MEDS ORDERED: 0.9 % Sodium Chloride 500 ML ONE (13:42)
[2017-03-05] MEDS ORDERED: *HR* Dextrose 50 % in Water (Syg) 50 ML SYRINGE IVP PRN (13:53)
[2017-03-05] MEDS ORDERED: Darbepoetin 100 MCG/0.5 ML SYRINGE SQ SCH (13:53)
[2017-03-05] MEDS ORDERED: Dextrose Gel 15 GM PO PRN ×2 (13:53)
[2017-03-06] MEDS: Ipratropium/Albuterol Neb 3 ML IH SCH ×6 (00:22→19:21)
[2017-03-06] MEDS: Dexmedetomidine HCl 400 MCG/100 ML MLS IVC SCH ×5 (02:19→17:17)
[2017-03-06] MEDS: Insulin LISPRO 300 UNITS/3 ML VIAL SQ SCH ×4 (02:20→17:30)
[2017-03-06 03:40] LABS: Basophils % 0.2 %; Eosinophils % 0.1 %; Hematocrit 26.5 % (37.5-50.1); Hemoglobin 8.7 g/dL (12.9-16.9); Immature Granulocytes % 5.2 % (0-4); Lymphocytes # 1.5 K/mcL (0.6-4.6); Lymphocytes % 9.3 %; Mean Corpuscular HGB Conc 32.8 g/dL (31.6-35.5); Mean Corpuscular Hemoglobin 28.3 pg (28.0-33.3); Mean Corpuscular Volume 86.3 fL (83.0-100.0); Mean Platelet Volume 11.3 fL (9.4-12.4); Monocytes # 0.7 K/mcL (0.0-1.3); Monocytes % 4.6 %; Neutrophils # 12.9 K/mcL (1.6-8.9); Nucleated Red Blood Cells 0.2 /100 WBC (0); Platelet Count 204 K/mcL (140-400); Red Blood Count 3.07 M/mcL (4.19-5.50); Red Cell Distribution Width 17.2 % (11.5-14.5); Segmented Neutrophils % 80.6 %
[2017-03-06 03:54] LABS: Potassium 4.8 mEq/L (3.5-4.5)
[2017-03-06 04:14] LABS: Anisocytosis 1+ (Not Present); Hypochromasia Present (Not Present); Platelet Estimate Normal (Normal); Polychromasia 1+ (Not Present)
[2017-03-06] MEDS: *HR* Heparin 5,000 UNIT/ML VIAL SQ SCH ×3 (06:11→23:55)
--- NOTE | 2017-03-06 08:23 | Nephrology Progress Note ---
Date of Encounter: 03/06/17 Time of Encounter: 08:22 - Assessment and Plan (1) ESRD on dialysis Current Visit: Yes Status: Chronic The patient has made some improvement from a neurologic perspective. He will undergo his dialysis today. (2) Atrial fibrillation Current Visit: No Status: Chronic Qualifiers: Atrial fibrillation type: paroxysmal Qualified Code(s): I48.0 - Paroxysmal atrial fibrillation (3) Sepsis due to Klebsiella Current Visit: Yes Status: Acute Subjective Principal diagnosis: Cardiac arrest Interval history: The patient is being maintained on BiPAP. He does respond to verbal stimuli and will follow simple commands briefly. He does then seemed become more somnolent again. He is scheduled for his usual dialysis today. Objective - Vital Signs Vital signs: Vital Signs Temp Pulse Resp BP Pulse Ox 03/06/17 07:55 12 162/80 97 03/06/17 06:46 62 13 162/80 95 03/06/17 06:00 63 18 163/82 97 03/06/17 04:59 92 03/06/17 04:15 92 24 154/95 96 03/06/17 02:25 68 18 141/83 98 03/06/17 00:45 97.7 F 76 19 161/77 90 03/06/17 00:16 71 03/06/17 00:15 71 18 95 03/05/17 20:36 18 95 03/05/17 20:20 74 03/05/17 19:37 97.6 F 74 18 145/77 92 03/05/17 18:54 97.5 F L 79 18 167/82 95 03/05/17 16:26 18 81 03/05/17 13:45 97.5 F L 74 18 159/79 89 03/05/17 13:06 88 03/05/17 12:00 67 18 158/86 96 03/05/17 11:20 18 158/86 97 03/05/17 11:00 75 12 154/84 94 03/05/17 10:05 70 03/05/17 10:00 76 14 174/83 96 03/05/17 09:00 65 14 154/87 96 Intake and Output 03/05/17 03/06/17 03/06/17 23:59 07:59 15:59 Intake Total 50 / 50 200 / 200 Balance 50 / 50 200 / 200 Intake: IV Fluids 50 / 50 200 / 200 PRECEDEX 400 mcg In 100 50 / 50 200 / 200 ml @ 0.2 MCG/KG/HR 5.775 mls/hr IVC .[id number] [facility] Rx#:[id number] Oral 0 / 0 Other: Meal Dinner Percent of Meal Consumed 0% # Voids 1 Weight 98.8 kg Blood Glucose* 164 151 Patient Weight 03/06/17 23:59 Weight 98.8 kg - General Appearance Exam: Patient is on BiPAP. He responds to his name and will open his eyes on command. He still remains somewhat somnolent. Lungs coarse breath sounds. Heart regular rate and rhythm. Abdomen is nontender. There is no lower extremity swelling. There is a functioning AV fistula in the right upper extremity. - Lab 03/06/17 03:33 03/06/17 03:33 Most recent lab results ABG pH 7.42 pH Units (7.32-7.45) 03/04/17 09:36 ABG pCO2 50 mmHg (35-45) H 03/04/17 09:36 ABG pO2 79 mmHg (85-104) L 03/04/17 09:36 ABG HCO3 32.4 mEQ/L (21-27) H 03/04/17 09:36 ABG O2 Saturation 96 % (95-98) 03/04/17 09:36 Calcium 9.0 mg/dL (8.6-10.8) 03/06/17 03:33 Phosphorus 5.5 mg/dL (2.3-4.7) H D 03/05/17 05:28 Magnesium 2.3 mg/dL (1.6-2.6) 03/05/17 05:28 Consult Discharge Plan - Plan Referrals: Chilo Lewis Jr, MD [Primary Care Provider] - (Possible back to ECF ?)
[2017-03-06] MEDS ORDERED: 0.9 % Sodium Chloride 250 ML IVC PRN (08:24)
[2017-03-06] MEDS: Pantoprazole 40 MG VIAL IVP SCH (09:28)
--- NOTE | 2017-03-06 10:27 | Palliative Progress Note ---
Date of Encounter: 03/06/17 Time of Encounter: 10:00 - Assessment and plan (1) Debility Current Visit: Yes Status: Acute Assessment and plan: PT/OT/Speech consults pending. May be candidate for LTACH. (2) Counseling regarding advanced care planning and goals of care Current Visit: Yes Status: Acute Assessment and plan: D/W Dr. Prasad. Patient may be candidate for LTACH. No family present, he was transitioned back to full code over the weekend. Palliative will follow from distance. (3) Acute metabolic encephalopathy Current Visit: Yes Status: Acute (4) End stage renal disease Current Visit: Yes Status: Acute Assessment and plan: For dialysis today - Time Spent With Patient Total time spent is greater than 50% in coordination of care (as documented) at patient's floor/unit and/or counseling patient: - Subjective Interval history: Events of weekend reviewed, pt successfully extubated. Currently resting with eyes closed, remains on Precedex. Awakens to calling name. Attempts to answer questions, c/o hip pain when asked. Most speech difficult to understand. - Constitutional Vitals: Abnormal lab results WBC 16.0 K/mcL (4.3-11.1) H 03/06/17 03:33 RBC 3.07 M/mcL (4.19-5.50) L 03/06/17 03:33 Hgb 8.7 g/dL (12.9-16.9) L 03/06/17 03:33 Hct 26.5 % (37.5-50.1) L 03/06/17 03:33 RDW 17.2 % (11.5-14.5) H 03/06/17 03:33 Immature Gran % 5.2 % (0-4) H 03/06/17 03:33 Band Neutrophils % 8.0 % (0-4) H 02/28/17 16:00 Metamyelocytes % 2.0 % (0) H 02/28/17 16:00 Myelocytes % 4.0 % (0) H 02/28/17 16:00 Neutrophils # 12.9 K/mcL (1.6-8.9) H 03/06/17 03:33 Nucleated RBCs/100 WBC 0.2 /100 WBC (0) H 03/06/17 03:33 Reactive Lymphocytes Present (Not Present) A 03/03/17 04:38 Smudge Cells Present (Not Present) A 03/01/17 03:00 Large Platelets Present (Not Present) A 03/04/17 04:00 Polychromasia 1+ (Not Present) A 03/06/17 03:33 Hypochromasia Present (Not Present) A 03/06/17 03:33 Anisocytosis 1+ (Not Present) A 03/06/17 03:33 Microcytosis Present (Not Present) A 03/04/17 04:00 Macrocytosis Present (Not Present) A 03/03/17 04:38 Target Cells 1+ (Not Present) A 03/05/17 03:34 PT 13.7 Seconds (9.4-12.1) H 02/27/17 17:40 ABG pCO2 50 mmHg (35-45) H 03/04/17 09:36 ABG pO2 79 mmHg (85-104) L 03/04/17 09:36 ABG HCO3 32.4 mEQ/L (21-27) H 03/04/17 09:36 ABG Total CO2 33.9 mEq/L (20-26) H 03/04/17 09:36 ABG Base Excess 7.0 mEq/L (-2.0 to 3.0) H 03/04/17 09:36 Potassium 4.8 mEq/L (3.5-4.5) H 03/06/17 03:33 BUN 85 mg/dL (8-26) H D 03/06/17 03:33 Creatinine 7.35 mg/dL (0.72-1.25) H 03/06/17 03:33 Est GFR ( Amer) 9 (> 60) L 03/06/17 03:33 Est GFR (Non-Af Amer) 7 (> 60) L 03/06/17 03:33 Glucose 150 mg/dL (70-99) H 03/06/17 03:33 POC Glucose 151 (58-89) H 03/06/17 01:50 Calculated Osmolality 321 (280-300) H 03/06/17 03:33 Ionized Calcium 0.87 mmol/L (1.15-1.35) L 03/03/17 13:07 Phosphorus 5.5 mg/dL (2.3-4.7) H D 03/05/17 05:28 Iron 43 mcg/dL (65-175) L 02/27/17 04:22 Transferrin 134 mg/dL (174-364) L 02/27/17 04:22 Ferritin 3147 ng/ml (22-275) H 02/27/17 04:22 Direct Bilirubin 0.6 mg/dL (0.0-0.5) H 02/28/17 03:18 AST 47 Units/L (5-34) H 02/28/17 03:18 Alkaline Phosphatase 135 Units/L (38-126) H 02/28/17 03:18 Troponin I 0.05 ng/mL (0-0.03) H* 02/27/17 17:40 Albumin 2.9 g/dL (3.5-5.0) L 02/28/17 03:18 Globulin 5.1 g/dL (2.4-3.5) H 02/28/17 03:18 Albumin/Globulin Ratio 0.6 (1.1-2.2) L 02/28/17 03:18 Triglycerides 158 mg/dL (< 150) H 02/26/17 04:28 VLDL Cholesterol, Calc 32 mg/dL (< 31) H 02/26/17 04:28 General appearance: Present: no acute distress - Respiratory Additional comments: Rhonchi bilaterally. currently on nasal cannula - Cardiovascular Cardiovascular exam: Present: +S1, +S2 - GI/Abdominal GI/Abdominal exam: Present: normal bowel sounds, soft - Extremities Exam Extremities exam: Present: normal inspection - Neurological Exam Additional comments: Patient awakens, confused. Can answer some yes/no questions. Speech difficult to understand. Did not follow commands. - Skin Skin exam: Present: dry, normal color, warm Palliative Quality Palliative Quality: Screen for Code Status: NA (Patient not responsive on vent) , Screen for Goals of Care: NA, Screen for Pain: NA, If Pain Regimen Started, Initiate Bowel Regimen: NA, Screen for Nausea/Vomitting: NA Code Status: 03/01/17 15:35 DNR [Resuscitation Status: Active] [RES] Routine Comment: Resuscitation Status: DNR-Comfort Care-Arrest 03/03/17 12:18 CODE [Resuscitation Status: Active] [RES] Routine Comment: Resuscitation Status: Full Code - Labs CBC & Chem 7: 03/06/17 03:33 03/06/17 03:33 Labs: Laboratory Results - last 24 hr 03/05/17 03/06/17 03/06/17 17:49 01:50 03:33 WBC 16.0 H RBC 3.07 L Hgb 8.7 L Hct 26.5 L MCV 86.3 MCH 28.3 MCHC 32.8 RDW 17.2 H Plt Count 204 MPV 11.3 Immature Gran % 5.2 H Seg Neutrophils % 80.6 Lymphocytes % 9.3 Monocytes % 4.6 Eosinophils % 0.1 Basophils % 0.2 Neutrophils # 12.9 H Lymphocytes # 1.5 Monocytes # 0.7 Eosinophils # 0.0 Basophils # 0.0 Nucleated RBCs/100 WBC 0.2 H Platelet Estimate Normal Polychromasia 1+ A Hypochromasia Present A Anisocytosis 1+ A Sodium Potassium Chloride Carbon Dioxide BUN Creatinine Est GFR ( Amer) Est GFR (Non-Af Amer) BUN/Creatinine Ratio Glucose POC Glucose 164 H 151 H Calculated Osmolality Calcium 03/06/17 03:33 WBC RBC Hgb Hct MCV MCH MCHC RDW Plt Count MPV Immature Gran % Seg Neutrophils % Lymphocytes % Monocytes % Eosinophils % Basophils % Neutrophils # Lymphocytes # Monocytes # Eosinophils # Basophils # Nucleated RBCs/100 WBC Platelet Estimate Polychromasia Hypochromasia Anisocytosis Sodium 141 Potassium 4.8 H Chloride 101 Carbon Dioxide 21 BUN 85 H D Creatinine 7.35 H Est GFR ( Amer) 9 L Est GFR (Non-Af Amer) 7 L BUN/Creatinine Ratio 12 Glucose 150 H POC Glucose Calculated Osmolality 321 H Calcium 9.0 - ABG Interpretation ABG results: ABG ABG pH 7.42 pH Units (7.32-7.45) 03/04/17 09:36 ABG pCO2 50 mmHg (35-45) H 03/04/17 09:36 ABG pO2 79 mmHg (85-104) L 03/04/17 09:36 ABG O2 Saturation 96 % (95-98) 03/04/17 09:36 PT/INR, D-dimer PT 13.7 Seconds (9.4-12.1) H 02/27/17 17:40 Procedures - Arterial Line Size (Gauge): 20 Consult Discharge Plan - Plan Referrals: Chilo Lewis Jr, MD [Primary Care Provider] - (Possible back to [facility] ?)
[2017-03-06] MEDS ORDERED: 0.9 % Sodium Chloride 1,000 ML ONE (11:31)
--- NOTE | 2017-03-06 13:27 | Internal Med Progress Note ---
<Franklyn Salcido - Last Filed: 03/06/17 18:40> Date of Encounter: 03/06/17 Time of Encounter: 10:00 - Assessment and plan (1) Anoxic brain injury Current Visit: Yes Status: Acute Assessment and plan: S/p cardiac arrest Patient's neurological status seems to be improving at this time. He was seen by neurology previously, however considering his rapid improvement in cognitive function following his return to consciousness, we will ask neurology to see the patient again and offer new recommendations regarding his recovery. (2) Acute respiratory failure with hypoxia and hypercarbia Current Visit: No Status: Acute Assessment and plan: The patient has been on bipap to this point, however he was successfully weaned and placed on 5L O2 via nasal canula today. Pulmonology continues to follow. (3) Cardiopulmonary arrest Current Visit: Yes Status: Resolved (4) ESRD on dialysis Current Visit: Yes Status: Chronic Assessment and plan: Patient being followed by nephrology, and underwent hemodialysis this afternoon. We will continue to follow nephrology's recommendations. (5) COPD exacerbation Current Visit: Yes Status: Acute Assessment and plan: Patient on scheduled duonebs. We will start his home dose of Symbicort at this time. (6) Hypertension Current Visit: Yes Status: Chronic Assessment and plan: Patient's home meds were previously discontinued, however his blood pressure has started rising again. At this time we will begin adding some of his home meds again, started with Coreg. Losartan would be a good next option, however his potassium is high-normal at this time, so we will wait on this. Qualifiers: Hypertension type: essential hypertension Qualified Code(s): I10 - Essential (primary) hypertension (7) DVT prophylaxis Current Visit: Yes Status: Acute (8) Counseling regarding advanced care planning and goals of care Current Visit: Yes Status: Acute Assessment and plan: Patient is being followed by palliative care and social work. - Subjective Interval history: Patient was asleep in bed at time of examination. He is alert to voice however orientation is difficult to determine. He did speak in basic sentences throughout the time of the exam, and did follow some basic commands such as squeezing fingers. He did not complain of any acute pain at this time. Spoke with his nurse nurse who states that his cognitive function seems improved compared to yesterday. At the time of the exam he was on nasal cannula oxygen rather than BiPAP and appeared comfortable - Constitutional Vitals: Temp Pulse Resp BP Pulse Ox 97.9 F 55 20 120/82 97 03/06/17 10:50 03/06/17 08:15 03/06/17 10:50 03/06/17 12:05 03/06/17 07:55 General appearance: Present: no acute distress, obese Exam: Patient was asleep in bed, however became alert to verbal stimuli. He was uncooperative in determining orientation at the time of examination, however he was able to follow some commands such as opening eyes, sticking tongue out, and gripping my fingers. He would not trace my finger with his eyes. Following orders occurred inconsistently - Respiratory Respiratory exam: Present: rhonchi Additional comments: Challenging to auscultate deep lung respirations due to patients inability to cooperate with exam. - Neurological Exam Neurological exam: Present: alert, altered, speech deficit Additional comments: Neurological exam is technically challenging. Patient was able to follow some commands such as opening eyes, sticking tongue out, and gripping my fingers. He would not trace my finger with his eyes. Following orders occurred inconsistently. Cranial nerves could not be appropriately assessed. - Expanded Neurological Exam Neurological exam expanded: Present: inattentive Cranial Nerves: tongue deviation PM: Normal Coma Scale Eye Opening: To Voice Coma Scale Motor Response: Obeys Commands Coma Scale Verbal Response: Inappropriate Coma Scale Total: 12 - Psychiatric Psychiatric exam: Present: agitated Internal Medicine: Result - Labs CBC & Chem 7: 03/06/17 03:33 03/06/17 03:33 Labs: Short CBC 03/06/17 Range/Units 03:33 WBC 16.0 H (4.3-11.1) K/mcL Hgb 8.7 L (12.9-16.9) g/dL Hct 26.5 L (37.5-50.1) % Plt Count 204 (140-400) K/mcL Neutrophils # 12.9 H (1.6-8.9) K/mcL BMP 03/06/17 03:33 Sodium 141 Potassium 4.8 H Chloride 101 Carbon Dioxide 21 BUN 85 H D Creatinine 7.35 H Glucose 150 H Calcium 9.0 - ABG Interpretation ABG results: ABG ABG pH 7.42 pH Units (7.32-7.45) 03/04/17 09:36 ABG pCO2 50 mmHg (35-45) H 03/04/17 09:36 ABG pO2 79 mmHg (85-104) L 03/04/17 09:36 ABG O2 Saturation 96 % (95-98) 03/04/17 09:36 PT/INR, D-dimer PT 13.7 Seconds (9.4-12.1) H 02/27/17 17:40 Procedures: Internal Med - Arterial Line Size (Gauge): 20 Consult Discharge Plan - Plan Referrals: Chilo Lewis Jr, MD [Primary Care Provider] - (Possible back to [facility] / [facility] ?) <Marlon Prasad - Last Filed: 03/06/17 19:11> Date of Encounter: 03/06/17 - Constitutional Vitals: Temp Pulse Resp BP Pulse Ox 97.7 F 61 13 124/79 95 03/06/17 15:58 03/06/17 15:58 03/06/17 15:58 03/06/17 15:58 03/06/17 15:56 Internal Medicine: Result - Labs CBC & Chem 7: 03/06/17 03:33 03/06/17 03:33 Labs: Short CBC 03/06/17 Range/Units 03:33 WBC 16.0 H (4.3-11.1) K/mcL Hgb 8.7 L (12.9-16.9) g/dL Hct 26.5 L (37.5-50.1) % Plt Count 204 (140-400) K/mcL Neutrophils # 12.9 H (1.6-8.9) K/mcL BMP 03/06/17 03:33 Sodium 141 Potassium 4.8 H Chloride 101 Carbon Dioxide 21 BUN 85 H D Creatinine 7.35 H Glucose 150 H Calcium 9.0 - ABG Interpretation ABG results: ABG ABG pH 7.42 pH Units (7.32-7.45) 03/04/17 09:36 ABG pCO2 50 mmHg (35-45) H 03/04/17 09:36 ABG pO2 79 mmHg (85-104) L 03/04/17 09:36 ABG O2 Saturation 96 % (95-98) 03/04/17 09:36 PT/INR, D-dimer PT 13.7 Seconds (9.4-12.1) H 02/27/17 17:40 - Attending Attestation I examined this patient and my medical decision-making was reviewed with the Resident Physician, Dr Salcido. I agree with the documented findings, disposition and treatment plan as described except to the extent set forth below. I have discussed the case with the neurologist. He thinks patient has a good prognosis from the neurological standpoint. Continue to treat the medical dis and expect close to full neurological recovery. The patient is not a candidate for anticoagulation t this time due to medical noncompliance and current poor baseline mental status.
--- NOTE | 2017-03-06 16:44 | Neurology Progress Note ---
Date of Encounter: 03/06/17 Time of Encounter: 16:39 Assessment and Plan (1) Cardiopulmonary arrest Current Visit: Yes Status: Resolved Patient underwent episode of cardiac arrest 03/01/2017 and initially was unresponsive but since then he has improved significantly and regained his consciousness, while showing no focal neurological deficits. Patient still has significant medical conditions that may cause mental status changes due to encephalopathy but prognosis from recent cardiac arrest appears to be good and the diagnosis of anoxic brain injury is likely a mild and transient one. At this time, it would safe to say that overall prognosis would depends on his ongoing medical co-morbidities and therefore will recommend continuing medical and supportive care. Expect him to continue to improve as medical conditions improve. Subjective Principal diagnosis: cardiac arrest Interval history: Patient seen and examined. This 71 year old man developed cardiac arrest while in the hospital while being treated for Pneumonia on 03/01/2017. He was initially evaluated by Dr. Franklyn Ramirez who found him to have some brain stem reflexes preserved by no signs of consciousness detected. Patient was thought to have poor neurological prognosis but amazingly he has been since showing signs of improvement and regained his consciousness. today he was somewhat agitated and is on CPAP but is easily arousable and answers simple questions. Moves all extremities. 'kicks really strong'. CT of head on 02/27 and 02/28 reviewed, showed no acute changes. Neurology was consulted to provide updated information regarding this patient's neurological prognosis. Objective - Constitutional Vitals: Temp Pulse Resp BP Pulse Ox 97.7 F 61 13 124/79 95 03/06/17 15:58 03/06/17 15:58 03/06/17 15:58 03/06/17 15:58 03/06/17 15:56 - Neurological Exam Sensorimotor examination: Present: other (Grossly intact. Able to localize source of sensory stimuli. ) Motor Examination: Present: grossly full strength in all extremities (No focal weakness noted. Hand alley cleaner really strong. ) Reflexes: Biceps: 1+, Triceps: 1+, Brachioradialis: 1+, Patella: 1+, Achilles: 1 + Mental Status Examination: Present: awake, alert, agitated, opens eyes to voice , makes eye contact (Patient turns head to make eye contact and asked 'what'. ) , follows simple commands Cranial nerve examination: Present: PERRL, EOMI, visual friedman intact (Unable to assess. ), corneal reflexes brisk symmetrically, sensory to face intact, no facial asymmetry is present (Unable to assess), soft palate elevates bilaterally upon phonation (Unable to assess), gag reflex intact Results - Laboratory Findings CBC and BMP: 03/06/17 03:33 03/06/17 03:33 Abnormal lab findings: Abnormal lab results WBC 16.0 K/mcL (4.3-11.1) H 03/06/17 03:33 RBC 3.07 M/mcL (4.19-5.50) L 03/06/17 03:33 Hgb 8.7 g/dL (12.9-16.9) L 03/06/17 03:33 Hct 26.5 % (37.5-50.1) L 03/06/17 03:33 RDW 17.2 % (11.5-14.5) H 03/06/17 03:33 Immature Gran % 5.2 % (0-4) H 03/06/17 03:33 Band Neutrophils % 8.0 % (0-4) H 02/28/17 16:00 Metamyelocytes % 2.0 % (0) H 02/28/17 16:00 Myelocytes % 4.0 % (0) H 02/28/17 16:00 Neutrophils # 12.9 K/mcL (1.6-8.9) H 03/06/17 03:33 Nucleated RBCs/100 WBC 0.2 /100 WBC (0) H 03/06/17 03:33 Reactive Lymphocytes Present (Not Present) A 03/03/17 04:38 Smudge Cells Present (Not Present) A 03/01/17 03:00 Large Platelets Present (Not Present) A 03/04/17 04:00 Polychromasia 1+ (Not Present) A 03/06/17 03:33 Hypochromasia Present (Not Present) A 03/06/17 03:33 Anisocytosis 1+ (Not Present) A 03/06/17 03:33 Microcytosis Present (Not Present) A 03/04/17 04:00 Macrocytosis Present (Not Present) A 03/03/17 04:38 Target Cells 1+ (Not Present) A 03/05/17 03:34 PT 13.7 Seconds (9.4-12.1) H 02/27/17 17:40 ABG pCO2 50 mmHg (35-45) H 03/04/17 09:36 ABG pO2 79 mmHg (85-104) L 03/04/17 09:36 ABG HCO3 32.4 mEQ/L (21-27) H 03/04/17 09:36 ABG Total CO2 33.9 mEq/L (20-26) H 03/04/17 09:36 ABG Base Excess 7.0 mEq/L (-2.0 to 3.0) H 03/04/17 09:36 Potassium 4.8 mEq/L (3.5-4.5) H 03/06/17 03:33 BUN 85 mg/dL (8-26) H D 03/06/17 03:33 Creatinine 7.35 mg/dL (0.72-1.25) H 03/06/17 03:33 Est GFR ( Amer) 9 (> 60) L 03/06/17 03:33 Est GFR (Non-Af Amer) 7 (> 60) L 03/06/17 03:33 Glucose 150 mg/dL (70-99) H 03/06/17 03:33 POC Glucose 151 (58-89) H 03/06/17 01:50 Calculated Osmolality 321 (280-300) H 03/06/17 03:33 Ionized Calcium 0.87 mmol/L (1.15-1.35) L 03/03/17 13:07 Phosphorus 5.5 mg/dL (2.3-4.7) H D 03/05/17 05:28 Iron 43 mcg/dL (65-175) L 02/27/17 04:22 Transferrin 134 mg/dL (174-364) L 02/27/17 04:22 Ferritin 3147 ng/ml (22-275) H 02/27/17 04:22 Direct Bilirubin 0.6 mg/dL (0.0-0.5) H 02/28/17 03:18 AST 47 Units/L (5-34) H 02/28/17 03:18 Alkaline Phosphatase 135 Units/L (38-126) H 02/28/17 03:18 Troponin I 0.05 ng/mL (0-0.03) H* 02/27/17 17:40 Albumin 2.9 g/dL (3.5-5.0) L 02/28/17 03:18 Globulin 5.1 g/dL (2.4-3.5) H 02/28/17 03:18 Albumin/Globulin Ratio 0.6 (1.1-2.2) L 02/28/17 03:18 Triglycerides 158 mg/dL (< 150) H 02/26/17 04:28 VLDL Cholesterol, Calc 32 mg/dL (< 31) H 02/26/17 04:28 Consult Discharge Plan - Plan Referrals: Chilo Lewis Jr, MD [Primary Care Provider] - (Possible back to [facility] ?)
[2017-03-06] MEDS: Budesonide/Formoterol 160/4.5 MDI IH SCH (19:22)
[2017-03-07] MEDS: Ipratropium/Albuterol Neb 3 ML IH SCH ×5 (00:16→16:15)
[2017-03-07] MEDS: Insulin LISPRO 300 UNITS/3 ML VIAL SQ SCH ×4 (00:53→18:41)
[2017-03-07] MEDS: *HR* Heparin 5,000 UNIT/ML VIAL SQ SCH ×2 (06:17→15:30)
[2017-03-07 07:06] LABS: Basophils % 0.1 %; Eosinophils % 0.1 %; Hematocrit 26.4 % (37.5-50.1); Hemoglobin 8.2 g/dL (12.9-16.9); Immature Granulocytes % 3.5 % (0-4); Lymphocytes # 1.7 K/mcL (0.6-4.6); Lymphocytes % 10.8 %; Mean Corpuscular HGB Conc 31.1 g/dL (31.6-35.5); Mean Corpuscular Hemoglobin 27.4 pg (28.0-33.3); Mean Corpuscular Volume 88.3 fL (83.0-100.0); Mean Platelet Volume 10.6 fL (9.4-12.4); Monocytes # 0.9 K/mcL (0.0-1.3); Monocytes % 5.8 %; Neutrophils # 12.5 K/mcL (1.6-8.9); Nucleated Red Blood Cells 0.3 /100 WBC (0); Platelet Count 245 K/mcL (140-400); Red Blood Count 2.99 M/mcL (4.19-5.50); Red Cell Distribution Width 17.4 % (11.5-14.5); Segmented Neutrophils % 79.7 %
[2017-03-07] MEDS: Budesonide/Formoterol 160/4.5 MDI IH SCH (07:56)
[2017-03-07] MEDS: Pantoprazole 40 MG VIAL IVP SCH (08:05)
[2017-03-07 08:33] LABS: Calcium 8.6 mg/dL (8.6-10.8); Potassium 4.2 mEq/L (3.5-4.5)
--- NOTE | 2017-03-07 09:41 | Palliative Progress Note ---
Date of Encounter: 03/07/17 Time of Encounter: 09:25 - Assessment and plan (1) Debility Current Visit: Yes Status: Acute (2) Counseling regarding advanced care planning and goals of care Current Visit: Yes Status: Acute (3) Acute metabolic encephalopathy Current Visit: Yes Status: Acute (4) End stage renal disease Current Visit: Yes Status: Acute - Time Spent With Patient Total time spent is greater than 50% in coordination of care (as documented) at patient's floor/unit and/or counseling patient: - Subjective Interval history: Patient sleeping on bipap. Remains on Precedex. Spoke with primary nurse and they are working on weaning this down. Has not been able to participate in therapies as of yet, or have speech eval. Dr. Johnson's follow up neurology note reviewed and appreciated. Williams Murillo speaking with LTACH - however, not sure they will take pt without nutritional plan and off precedex. Palliative following from distance. - Constitutional Vitals: Abnormal lab results WBC 15.6 K/mcL (4.3-11.1) H 03/07/17 06:50 RBC 2.99 M/mcL (4.19-5.50) L 03/07/17 06:50 Hgb 8.2 g/dL (12.9-16.9) L 03/07/17 06:50 Hct 26.4 % (37.5-50.1) L 03/07/17 06:50 MCH 27.4 pg (28.0-33.3) L 03/07/17 06:50 MCHC 31.1 g/dL (31.6-35.5) L 03/07/17 06:50 RDW 17.4 % (11.5-14.5) H 03/07/17 06:50 Band Neutrophils % 8.0 % (0-4) H 02/28/17 16:00 Metamyelocytes % 2.0 % (0) H 02/28/17 16:00 Myelocytes % 4.0 % (0) H 02/28/17 16:00 Neutrophils # 12.5 K/mcL (1.6-8.9) H 03/07/17 06:50 Nucleated RBCs/100 WBC 0.3 /100 WBC (0) H 03/07/17 06:50 Reactive Lymphocytes Present (Not Present) A 03/03/17 04:38 Smudge Cells Present (Not Present) A 03/01/17 03:00 Large Platelets Present (Not Present) A 03/04/17 04:00 Polychromasia 1+ (Not Present) A 03/06/17 03:33 Hypochromasia Present (Not Present) A 03/06/17 03:33 Anisocytosis 1+ (Not Present) A 03/06/17 03:33 Microcytosis Present (Not Present) A 03/04/17 04:00 Macrocytosis Present (Not Present) A 03/03/17 04:38 Target Cells 1+ (Not Present) A 03/05/17 03:34 PT 13.7 Seconds (9.4-12.1) H 02/27/17 17:40 ABG pCO2 50 mmHg (35-45) H 03/04/17 09:36 ABG pO2 79 mmHg (85-104) L 03/04/17 09:36 ABG HCO3 32.4 mEQ/L (21-27) H 03/04/17 09:36 ABG Total CO2 33.9 mEq/L (20-26) H 03/04/17 09:36 ABG Base Excess 7.0 mEq/L (-2.0 to 3.0) H 03/04/17 09:36 BUN 78 mg/dL (8-26) H 03/07/17 08:15 Creatinine 6.86 mg/dL (0.72-1.25) H 03/07/17 08:15 Est GFR ( Amer) 10 (> 60) L 03/07/17 08:15 Est GFR (Non-Af Amer) 8 (> 60) L 03/07/17 08:15 Glucose 111 mg/dL (70-99) H 03/07/17 08:15 POC Glucose 115 (58-89) H 03/07/17 00:26 Calculated Osmolality 310 (280-300) H 03/07/17 08:15 Ionized Calcium 0.87 mmol/L (1.15-1.35) L 03/03/17 13:07 Phosphorus 5.5 mg/dL (2.3-4.7) H D 03/05/17 05:28 Iron 43 mcg/dL (65-175) L 02/27/17 04:22 Transferrin 134 mg/dL (174-364) L 02/27/17 04:22 Ferritin 3147 ng/ml (22-275) H 02/27/17 04:22 Direct Bilirubin 0.6 mg/dL (0.0-0.5) H 02/28/17 03:18 AST 47 Units/L (5-34) H 02/28/17 03:18 Alkaline Phosphatase 135 Units/L (38-126) H 02/28/17 03:18 Troponin I 0.05 ng/mL (0-0.03) H* 02/27/17 17:40 Albumin 2.9 g/dL (3.5-5.0) L 02/28/17 03:18 Globulin 5.1 g/dL (2.4-3.5) H 02/28/17 03:18 Albumin/Globulin Ratio 0.6 (1.1-2.2) L 02/28/17 03:18 Triglycerides 158 mg/dL (< 150) H 02/26/17 04:28 VLDL Cholesterol, Calc 32 mg/dL (< 31) H 02/26/17 04:28 Palliative Quality Palliative Quality: Screen for Code Status: NA (Patient not responsive on vent) , Screen for Goals of Care: NA, Screen for Pain: NA, If Pain Regimen Started, Initiate Bowel Regimen: NA, Screen for Nausea/Vomitting: NA Code Status: 03/01/17 15:35 DNR [Resuscitation Status: Active] [RES] Routine Comment: Resuscitation Status: DNR-Comfort Care-Arrest 03/03/17 12:18 CODE [Resuscitation Status: Active] [RES] Routine Comment: Resuscitation Status: Full Code - Labs CBC & Chem 7: 03/07/17 06:50 03/07/17 08:15 Labs: Laboratory Results - last 24 hr 03/06/17 03/06/17 03/07/17 12:11 17:28 00:26 WBC RBC Hgb Hct MCV MCH MCHC RDW Plt Count MPV Immature Gran % Seg Neutrophils % Lymphocytes % Monocytes % Eosinophils % Basophils % Neutrophils # Lymphocytes # Monocytes # Eosinophils # Basophils # Nucleated RBCs/100 WBC Sodium Potassium Chloride Carbon Dioxide BUN Creatinine Est GFR ( Amer) Est GFR (Non-Af Amer) BUN/Creatinine Ratio Glucose POC Glucose 106 H 111 H 115 H Calculated Osmolality Calcium Specimen Rejected 03/07/17 03/07/17 03/07/17 06:50 06:50 08:15 WBC 15.6 H RBC 2.99 L Hgb 8.2 L Hct 26.4 L MCV 88.3 MCH 27.4 L MCHC 31.1 L RDW 17.4 H Plt Count 245 MPV 10.6 Immature Gran % 3.5 Seg Neutrophils % 79.7 Lymphocytes % 10.8 Monocytes % 5.8 Eosinophils % 0.1 Basophils % 0.1 Neutrophils # 12.5 H Lymphocytes # 1.7 Monocytes # 0.9 Eosinophils # 0.0 Basophils # 0.0 Nucleated RBCs/100 WBC 0.3 H Sodium 138 Potassium 4.2 Chloride 99 Carbon Dioxide 27 BUN 78 H Creatinine 6.86 H Est GFR ( Amer) 10 L Est GFR (Non-Af Amer) 8 L BUN/Creatinine Ratio 11 Glucose 111 H POC Glucose Calculated Osmolality 310 H Calcium 8.6 Specimen Rejected Hemolyzed - Impressions Impressions Chest X-Ray 03/05/17 06:51 IMPRESSION: 1. Study limited by patient rotation. 2. Interval improvement in appearance of mild interstitial pulmonary edema and bibasilar airspace disease. 3. Stable cardiomegaly. 4. Chronic pulmonary arterial hypertension. D/ / 03/05/2017 08:00:35 Chidi Monae MD / edenilson Interpreting Provider: Chidi Monae MD - ABG Interpretation ABG results: ABG ABG pH 7.42 pH Units (7.32-7.45) 03/04/17 09:36 ABG pCO2 50 mmHg (35-45) H 03/04/17 09:36 ABG pO2 79 mmHg (85-104) L 03/04/17 09:36 ABG O2 Saturation 96 % (95-98) 03/04/17 09:36 PT/INR, D-dimer PT 13.7 Seconds (9.4-12.1) H 02/27/17 17:40 Procedures - Arterial Line Size (Gauge): 20 Consult Discharge Plan - Plan Referrals: Chilo Lewis Jr, MD [Primary Care Provider] - (Possible back to [facility] ?)
--- NOTE | 2017-03-07 09:44 | Event Note ---
Date of Encounter: 03/07/17 Time of Encounter: 09:40 Patient sleeping on bipap. Awakens easily when name called. Remains on Precedex - not following commands for me this am. Has not been able to participate with therapy as of yet. Spoke with primary nurse re: weaning of Precedex and this has been turned down. Williams Murillo speaking with LTACH for eval, however, I do not think they will take him without nutrition in place and on Precedex. Palliative following from distance.
--- NOTE | 2017-03-07 11:04 | Nephrology Progress Note ---
Date of Encounter: 03/07/17 Time of Encounter: 10:40 - Assessment and Plan (1) ESRD on dialysis Current Visit: Yes Status: Chronic S/P cardiac arrest. Anoxic brain injury. HD tomorrow, keeping MWF schedule. Subjective Principal diagnosis: cardiac arrest Interval history: S/P cardiac arrest. On BiPap. Arouses when name called. Speech clear. Does not now who I am when normally very aware. Unaware of current place and surrounding events. readily closes eyes. Objective - Vital Signs Vital signs: Vital Signs Temp Pulse Resp BP Pulse Ox 03/07/17 07:56 15 120/56 100 03/07/17 07:31 98.1 F 70 19 120/56 98 03/07/17 04:16 26 153/69 100 03/07/17 03:59 78 15 100 03/07/17 03:22 97.5 F L 73 15 153/69 100 03/07/17 00:24 97.5 F L 77 15 167/76 100 03/07/17 00:19 70 16 100 03/07/17 00:16 16 166/78 100 03/06/17 21:17 97.7 F 78 27 122/82 100 03/06/17 21:00 85 13 100 03/06/17 19:48 69 13 100 03/06/17 19:21 16 125/89 100 03/06/17 15:58 97.7 F 61 13 124/79 03/06/17 15:56 13 129/66 95 03/06/17 15:14 74 03/06/17 15:10 74 18 124/68 99 03/06/17 14:34 97.7 F 22 118/73 03/06/17 13:55 118/53 03/06/17 13:50 129/77 03/06/17 13:35 137/80 03/06/17 13:20 131/86 03/06/17 13:05 138/78 03/06/17 12:50 151/87 03/06/17 12:40 177/110 03/06/17 12:35 167/100 03/06/17 12:20 136/86 03/06/17 12:05 120/82 03/06/17 11:50 132/86 03/06/17 11:35 119/69 03/06/17 11:20 128/66 03/06/17 11:05 152/82 Intake and Output 03/06/17 03/07/17 03/07/17 23:59 07:59 15:59 Intake Total 125 / 125 15 / 15 Balance 125 / 125 15 / 15 Intake: IV Fluids 125 / 125 15 / 15 PRECEDEX 400 mcg In 100 125 / 125 15 / 15 ml @ 0.2 MCG/KG/HR 5.775 mls/hr IVC .[id number] [facility] Rx#:[id number] Oral 0 / 0 Other: Stool Size Copious Stool Consistency loose liquid Stool Color Brown Weight 98.3 kg Blood Glucose* 111 107 Patient Weight 03/07/17 23:59 Weight 98.3 kg - General Appearance General appearance: Present: well-developed, well-nourished, appears started age , obese EENT: Present: mucous membranes moist Neck: Present: no JVD Respiratory: Present: clear Cardiology: Present: no edema, irregular rhythm Gastrointestinal: Present: hypoactive bowel sounds, distended Integumentary: Present: warm and dry Psychiatric: Present: cooperative - Lab 03/07/17 06:50 03/07/17 08:15 Most recent lab results ABG pH 7.42 pH Units (7.32-7.45) 03/04/17 09:36 ABG pCO2 50 mmHg (35-45) H 03/04/17 09:36 ABG pO2 79 mmHg (85-104) L 03/04/17 09:36 ABG HCO3 32.4 mEQ/L (21-27) H 03/04/17 09:36 ABG O2 Saturation 96 % (95-98) 03/04/17 09:36 Calcium 8.6 mg/dL (8.6-10.8) 03/07/17 08:15 Phosphorus 5.5 mg/dL (2.3-4.7) H D 03/05/17 05:28 Magnesium 2.3 mg/dL (1.6-2.6) 03/05/17 05:28 Consult Discharge Plan - Plan Referrals: Chilo Lewis Jr, MD [Primary Care Provider] - (Possible back to ECF ?)
--- NOTE | 2017-03-07 12:54 | Neurology Progress Note ---
Date of Encounter: 03/07/17 Time of Encounter: 12:52 Assessment and Plan (1) Cardiopulmonary arrest Current Visit: Yes Status: Resolved Patient has history of cardiac arrest, but clinically he has improved significantly within the last 5-6 days and now is fully awake and alert and moves all limbs. Therefore it is my opinion that the cardiac arrest incident had to be mild and transient and apparently did not cause irreversible brain damage. Is expecting his cognitive function to continue to improve as medical conditions continue to improve. No further testing from neurology perspective appear necessary at this time. Please continue medical and supportive care. Will sign off now please call if any questions Subjective Principal diagnosis: cardiac arrest Interval history: Patient seen and examined. Patient is doing better today and he is wide awake and able to answer simple questions. Appears agitated though and could not cooperate with all the examination but follows simple commands. Moves all limbs and no gross focal weakness noted. Objective - Constitutional Vitals: Temp Pulse Resp BP Pulse Ox 97.9 F 85 18 162/80 94 03/07/17 11:24 03/07/17 11:24 03/07/17 11:24 03/07/17 11:24 03/07/17 11:24 - Neurological Exam Motor Examination: Present: grossly full strength in all extremities (No focal weakness noted. 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 ) Sensation intact: Present: intact Posture: Present: other (none) Reflexes: Biceps: 2+, Triceps: 2+, Brachioradialis: 2+, Patella: 2+, Achilles: 2 + Mental Status Examination: Present: awake, alert, follows commands appropriately , agitated, opens eyes to voice, makes eye contact (Patient turns head to make eye contact and asked 'what'. ), follows simple commands, answers questions by nodding yes or no Cranial nerve examination: Present: PERRL, EOMI, visual friedman intact (Unable to assess. ), corneal reflexes brisk symmetrically, sensory to face intact, no facial asymmetry is present (Unable to assess), soft palate elevates bilaterally upon phonation (Unable to assess), gag reflex intact Results - Laboratory Findings CBC and BMP: 03/07/17 06:50 03/07/17 08:15 Abnormal lab findings: Abnormal lab results WBC 15.6 K/mcL (4.3-11.1) H 03/07/17 06:50 RBC 2.99 M/mcL (4.19-5.50) L 03/07/17 06:50 Hgb 8.2 g/dL (12.9-16.9) L 03/07/17 06:50 Hct 26.4 % (37.5-50.1) L 03/07/17 06:50 MCH 27.4 pg (28.0-33.3) L 03/07/17 06:50 MCHC 31.1 g/dL (31.6-35.5) L 03/07/17 06:50 RDW 17.4 % (11.5-14.5) H 03/07/17 06:50 Band Neutrophils % 8.0 % (0-4) H 02/28/17 16:00 Metamyelocytes % 2.0 % (0) H 02/28/17 16:00 Myelocytes % 4.0 % (0) H 02/28/17 16:00 Neutrophils # 12.5 K/mcL (1.6-8.9) H 03/07/17 06:50 Nucleated RBCs/100 WBC 0.3 /100 WBC (0) H 03/07/17 06:50 Reactive Lymphocytes Present (Not Present) A 03/03/17 04:38 Smudge Cells Present (Not Present) A 03/01/17 03:00 Large Platelets Present (Not Present) A 03/04/17 04:00 Polychromasia 1+ (Not Present) A 03/06/17 03:33 Hypochromasia Present (Not Present) A 03/06/17 03:33 Anisocytosis 1+ (Not Present) A 03/06/17 03:33 Microcytosis Present (Not Present) A 03/04/17 04:00 Macrocytosis Present (Not Present) A 03/03/17 04:38 Target Cells 1+ (Not Present) A 03/05/17 03:34 PT 13.7 Seconds (9.4-12.1) H 02/27/17 17:40 ABG pCO2 50 mmHg (35-45) H 03/04/17 09:36 ABG pO2 79 mmHg (85-104) L 03/04/17 09:36 ABG HCO3 32.4 mEQ/L (21-27) H 03/04/17 09:36 ABG Total CO2 33.9 mEq/L (20-26) H 03/04/17 09:36 ABG Base Excess 7.0 mEq/L (-2.0 to 3.0) H 03/04/17 09:36 BUN 78 mg/dL (8-26) H 03/07/17 08:15 Creatinine 6.86 mg/dL (0.72-1.25) H 03/07/17 08:15 Est GFR ( Amer) 10 (> 60) L 03/07/17 08:15 Est GFR (Non-Af Amer) 8 (> 60) L 03/07/17 08:15 Glucose 111 mg/dL (70-99) H 03/07/17 08:15 POC Glucose 115 (58-89) H 03/07/17 00:26 Calculated Osmolality 310 (280-300) H 03/07/17 08:15 Ionized Calcium 0.87 mmol/L (1.15-1.35) L 03/03/17 13:07 Phosphorus 5.5 mg/dL (2.3-4.7) H D 03/05/17 05:28 Iron 43 mcg/dL (65-175) L 02/27/17 04:22 Transferrin 134 mg/dL (174-364) L 02/27/17 04:22 Ferritin 3147 ng/ml (22-275) H 02/27/17 04:22 Direct Bilirubin 0.6 mg/dL (0.0-0.5) H 02/28/17 03:18 AST 47 Units/L (5-34) H 02/28/17 03:18 Alkaline Phosphatase 135 Units/L (38-126) H 02/28/17 03:18 Troponin I 0.05 ng/mL (0-0.03) H* 02/27/17 17:40 Albumin 2.9 g/dL (3.5-5.0) L 02/28/17 03:18 Globulin 5.1 g/dL (2.4-3.5) H 02/28/17 03:18 Albumin/Globulin Ratio 0.6 (1.1-2.2) L 02/28/17 03:18 Triglycerides 158 mg/dL (< 150) H 02/26/17 04:28 VLDL Cholesterol, Calc 32 mg/dL (< 31) H 02/26/17 04:28 Consult Discharge Plan - Plan Referrals: Chilo Lewis Jr, MD [Primary Care Provider] - (Possible back to ECF ?)
[2017-03-07 15:15] VITALS: BP 122/84
--- NOTE | 2017-03-07 15:36 | Discharge Summary ---
Date of Encounter: 03/07/17 Time of Encounter: 15:34 - Discharge Diagnosis (1) Cardiopulmonary arrest Priority: Primary Status: Resolved (2) Acute respiratory failure with hypoxia Priority: Primary Status: Acute (3) Anoxic brain injury Priority: Primary Status: Acute (4) Atrial fibrillation Priority: Secondary Status: Chronic Qualifiers: Atrial fibrillation type: chronic Qualified Code(s): I48.2 - Chronic atrial fibrillation (5) CAD (coronary artery disease) Priority: Secondary Status: Chronic Qualifiers: Coronary Disease-Associated Artery/Lesion type: [place] artery [place] vs. transplanted heart: [place] heart Associated angina: without angina Qualified Code(s): I25.10 - Atherosclerotic heart disease of [place] coronary artery without angina pectoris (6) COPD (chronic obstructive pulmonary disease) Priority: Secondary Status: Chronic Qualifiers: COPD type: unspecified COPD Qualified Code(s): J44.9 - Chronic obstructive pulmonary disease, unspecified (7) Diabetes mellitus Priority: Secondary Status: Chronic Qualifiers: Diabetes mellitus type: type 2 Diabetes mellitus complication status: with unspecified complications Diabetes mellitus fci insulin use: without fci use Qualified Code(s): E11.8 - Type 2 diabetes mellitus with unspecified complications (8) ESRD on dialysis Priority: Secondary Status: Chronic (9) Hypertension Priority: Secondary Status: Chronic Qualifiers: Hypertension type: essential hypertension Qualified Code(s): I10 - Essential (primary) hypertension (10) Tobacco abuse Priority: Secondary Status: Chronic - Discharge Medications Home Medications: Budesonide/Formoterol 160/4.5 [Symbicort 160/4.5] 2 puff IH BIDR 09/22/16 [ History] Cinacalcet [Sensipar] 30 mg PO DAILY 09/22/16 [History] Aspirin 81 mg PO DAILY #0 tab.chew 09/28/16 [Rx] Docusate [Colace] 100 mg PO BID PRN #0 capsule 02/24/17 [Rx] Carvedilol [Coreg] 6.25 mg PO BIDWM tablet 03/07/17 [Rx] Darbepoetin [Aranesp] 100 mcg SQ QWEEK #0 syringe 03/07/17 [Rx] Heparin 5,000 unit SQ Q8H #0 vial 03/07/17 [Rx] Ipratropium/Albuterol Neb [Duoneb] 3 ml IH [id number] #0 inhsol 03/07/17 [Rx] Lacri-Lube [Lacri-lube] 1 appl BOTH EYES Q2HR PRN #0 tube 03/07/17 [Rx] Pantoprazole [Protonix] 40 mg IVP DAILY vial 03/07/17 [Rx] amLODIPine [Norvasc] 2.5 mg PO DAILY #0 03/07/17 [Rx] Allergies/Adverse Reactions: Allergies iodine Allergy (Verified 02/26/17 11:13) Rash rofecoxib [From Vioxx] Allergy (Verified 02/21/17 06:52) Swelling of Lip/Tongue/Throat Date of admission: 02/27/17 16:57 Primary care physician: Chilo Lewis Jr, MD Consults: 02/28/17 14:45 Consult to Dialysis [CONS] ONCE 02/28/17 17:35 Consult to Interpret Exam [CONS] Routine Consulting Provider: Franklyn Ramirez Consult to Interpret Exam: Interpret EEG 03/01/17 09:40 Consult to Neurology [CONS] Routine Consulting Provider: [facility] Reason for Consult: unresponsive after cardiac arrest Call Completed: Yes 03/01/17 11:56 Consult to Invasive Line Access Team [CONS] Routine Reason for Consult: poor access Line Type: EPIV 03/01/17 16:06 Consult to Palliative Care [CONS] Routine Comment: Consulting Provider: Palliative Care [facility] Reason for Consult: Discuss Code status Time Notified: 16:00 Call Completed: Yes 03/02/17 08:30 Consult to Dialysis [CONS] ONCE 03/03/17 10:30 Consult to Dialysis [CONS] ONCE 03/04/17 13:15 Consult to Dialysis [CONS] ONCE 03/06/17 08:30 Consult to Dialysis [CONS] ONCE 03/06/17 10:09 Consult to Physical Therapy [CONS] Routine Comment: Evaluate, develop and implement POC Reason for Consult: Eval and treat, possible LTACH candidate 03/06/17 10:11 Consult to Occupational Therapy [CONS] Routine Comment: Evaluate, develop and implement POC Reason for Consult: eval and treat, possible LTACH candidate 03/06/17 10:15 Consult to Speech Therapy [CONS] Routine Comment: Evaluate, develop and implement POC Reason for Consult: eval and treat Call Completed: No 03/06/17 13:22 Consult to Neurology [CONS] Routine Consulting Provider: [facility] Reason for Consult: Possible anoxic brain injury s/p cardiac arrest. Time Notified: 13:23 Call Completed: Yes - Patient Status Disposition: Transfer LTC Condition: Good Functional capacity at discharge: bed bound Overall status at discharge: patient is not back to baseline - Discharge Instructions Follow Up With: Chilo Lewis Jr, MD [Primary Care Provider] - (PATIENT IS GOING TO [facility], NO PCP APPOINTMENT NEEDED) - Diet and Activity Activity: resume usual activities as tolerated Diet: other (cardiac Honey thickened liquids, mechanically altered) Interval History: Patient is nonverbal. Hospital course: Mr. Hernandez is a 71 year old male with past medical history of aortic aneurysm, diabetes, end-stage renal disease on hemodialysis, hypertension, CAD, and heavy tobacco use. Patient was admitted to our hospital the day prior his hospitalization but left AGAINST MEDICAL ADVICE. He was called at home because of a positive blood cultures. He was admitted because of gram-negative bo bacteremia and was started on empiric antibiotics. 2 days after admission, patient became unresponsive and went into cardiac arrest, he was successfully resuscitated and transferred to our intensive care unit. There was a suspicion for anoxic brain injury, however, patient neurologic status improved and he was alert and following commands. He was the escalated to 5 L of oxygen via nasal cannula and Precedex was weaned off before discharge. PLAN: Transfer to LTAC. - Time Spent with Patient Total time spent providing and/or coordinating discharge services: - Constitutional Vitals: Temp Pulse Resp BP Pulse Ox 97.9 F 91 20 122/84 95 03/07/17 15:12 03/07/17 15:12 03/07/17 15:12 03/07/17 15:12 03/07/17 15:12 General appearance: Present: no acute distress, obese - Respiratory Respiratory exam: Present: CTAB - Cardiovascular Cardiovascular exam: Present: RRR - GI/Abdominal GI/Abdominal exam: Present: normal bowel sounds, soft. Absent: distended, tenderness - Extremities Exam Extremities exam: Present: pedal edema - Back Exam Back exam: Absent: CVA tenderness (L), CVA tenderness (R) - Neurological Exam Neurological exam: Present: alert Additional comments: Patient open his eyes and squeezes my hands upon command. He moves his legs on his own but does not answers any questions. - Skin Skin exam: Absent: rash
--- NOTE | 2017-03-07 16:38 | Physician Discharge Referral ---
ExtendedCare Referral Info Transfer To: [facility] Provider in Charge: gavin Provider in Charge after Transfer: Other Institutional Level of Care: Skilled - Diagnosis (1) Cardiopulmonary arrest Status: Resolved (2) Acute respiratory failure with hypoxia Status: Acute (3) Anoxic brain injury Status: Acute (4) Atrial fibrillation Status: Chronic (5) CAD (coronary artery disease) Status: Chronic (6) COPD (chronic obstructive pulmonary disease) Status: Chronic (7) Diabetes mellitus Status: Chronic (8) ESRD on dialysis Status: Chronic (9) Hypertension Status: Chronic (10) Tobacco abuse Status: Chronic - Transfer Medications Home Medications: Budesonide/Formoterol 160/4.5 [Symbicort 160/4.5] 2 puff IH BIDR 09/22/16 [ History] Cinacalcet [Sensipar] 30 mg PO DAILY 09/22/16 [History] Aspirin 81 mg PO DAILY #0 tab.chew 09/28/16 [Rx] Docusate [Colace] 100 mg PO BID PRN #0 capsule 02/24/17 [Rx] Carvedilol [Coreg] 6.25 mg PO BIDWM tablet 03/07/17 [Rx] Darbepoetin [Aranesp] 100 mcg SQ QWEEK #0 syringe 03/07/17 [Rx] Heparin 5,000 unit SQ Q8H #0 vial 03/07/17 [Rx] Ipratropium/Albuterol Neb [Duoneb] 3 ml IH [id number] #0 inhsol 03/07/17 [Rx] Lacri-Lube [Lacri-lube] 1 appl BOTH EYES Q2HR PRN #0 tube 03/07/17 [Rx] Pantoprazole [Protonix] 40 mg IVP DAILY vial 03/07/17 [Rx] amLODIPine [Norvasc] 2.5 mg PO DAILY #0 03/07/17 [Rx] Allergies/Adverse Reactions: Allergies iodine Allergy (Verified 02/26/17 11:13) Rash rofecoxib [From Vioxx] Allergy (Verified 02/21/17 06:52) Swelling of Lip/Tongue/Throat - Respiratory Orders Oxygen / L per min (5 L) Smoking Cessation: Smoking cessation has been advised. For more information, call the [employer] Tobacco Quit Line at 1-245-CPLK-NOW. - Advance Directives Code Status: Full Code - Mobility Orders Other (per PT) - Rehabiliation Orders Rehab Potential: Fair Rehab Orders: Evaluation for Physical Therapy, Evaluation for Occupational Therapy - Diet Orders Mechanical Soft (Honey thickened liquids, mechanically altered textures, and meds in pureed textures) CERTIFICATION: I certify that the transfer of the above named patient to an Extended Care Facility is necessary for the continuing treatment of the diagnosis listed. The above information is true and accurate reflection of patient's current condition. Confidential - Redisclosure prohibited without a patient's written consent.
== END 2017-03-07 18:50 | DRG 870 ==
LOC: 2ANU 20:46 → EMEROO 20:46 → 2ANU 23:03 → ICNU 02-27 16:22 → SUATTDRO 02-27 16:57 → 2NNU 03-05 13:45
PROVIDERS: ADMIT Internal Medicine; ATTEND Family Medicine

== ENCOUNTER 2017-04-05 02:45 | Inpatient (IN) ==
--- NOTE | 2017-04-05 02:56 | Emergency Department Note ---
Disposition Clinical Impression: Elevated troponin level, ESRD on dialysis Congestive heart failure Qualifiers: Congestive heart failure type: unspecified congestive heart failure type Congestive heart failure chronicity: unspecified congestive heart failure chronicity Qualified Code(s): I50.9 - Heart failure, unspecified Atrial fibrillation Qualifiers: Atrial fibrillation type: chronic Qualified Code(s): I48.2 - Chronic atrial fibrillation Leukocytosis Qualifiers: Leukocytosis type: unspecified Qualified Code(s): D72.829 - Elevated white blood cell count, unspecified Disposition: Admitted As Inpatient Condition: Fair Time of Disposition: 04:31 General Adult HPI - General Chief complaint: ED General Medical Stated complaint: "shivering" Time Seen by Provider: 04/05/17 02:46 Source: EMS Mode of arrival: EMS Limitations: altered mental status Nursing Notes Reviewed: Yes Vital Signs Reviewed: Yes - History of Present Illness HPI Narrative: Patient [facility] with the chief complaint of shivering. Patient is on dialysis Monday, Monday, Monday and is due up today. States that he had blood work pended to be drawn this morning and lab went to draw at and states "his blood was too thick". EMS was called due to the family requests from the patient's son due to shivering. Unclear if the patient has any altered mental status or what his baseline is. He is a poor historian and unable to answer any questions. He does not seem to be in any distress. He is able to shake his head no when asked if he hurts anywhere, but was unable to respond when asked what year it is or what his name was - Related Data Home Medications Medication Instructions Recorded Confirmed Budesonide/Formoterol 160/4.5 2 puff IH BIDR 09/22/16 02/26/17 [Symbicort 160/4.5] Cinacalcet [Sensipar] 30 mg PO DAILY 09/22/16 02/26/17 Previous Rx's Medication Instructions Recorded Aspirin 81 mg PO DAILY #0 tab.chew 09/28/16 Docusate [Colace] 100 mg PO BID PRN #0 capsule 02/24/17 Carvedilol [Coreg] 6.25 mg PO BIDWM tablet 03/07/17 Darbepoetin [Aranesp] 100 mcg SQ QWEEK #0 syringe 03/07/17 Heparin 5,000 unit SQ Q8H #0 vial 03/07/17 Ipratropium/Albuterol Neb [Duoneb] 3 ml IH [id number] #0 inhsol 03/07/17 Lacri-Lube [Lacri-lube] 1 appl BOTH EYES Q2HR PRN #0 tube 03/07/17 Pantoprazole [Protonix] 40 mg IVP DAILY vial 03/07/17 amLODIPine [Norvasc] 2.5 mg PO DAILY #0 03/07/17 Allergies Allergy/AdvReac Type Severity Reaction Status Date / Time iodine Allergy Rash Verified 02/26/17 11:13 rofecoxib [From Vioxx] Allergy Swelling Verified 02/21/17 06:52 of Lip/Tongue/Throat Limitations: ROS unobtainable due to patients medical condition Past Medical History - Past Medical History Attestation: Yes The following information was validated with the patient. Source: old records reviewed Medical history: Reports: aortic aneurysm, diabetes, dialysis, hyperlipidemia, hypertension, myocardial infarction, renal disease, other Surgical history: Reports: angioplasty/stent, cholecystectomy, other Psychiatric history: Reports: anxiety, depression - Social History Smoking Status: Current every day smoker Smokeless Tobacco Status: No Alcohol use: Reports: rarely Drug use: Reports: none Physical Exam - General Limitations: altered mental status General appearance: alert, other (Patient is shivering, alert, tracks appropriately with eyes, intermittently responds to simple questions, seems appropriate. Likely at baseline) - Head Head exam: atraumatic - Eye Eye exam: Present: PERRL, EOMI (Grossly, although will not follow commands) - ENT ENT exam: mucous membranes moist - Neck Neck exam: Absent: meningismus - Chest Chest inspection: Present: normal inspection - Respiratory Respiratory exam: Present: normal lung sounds bilaterally - Cardiovascular Cardiovascular exam: Present: regular rate - Abdominal Exam Abdominal exam: Present: soft, Non-Tender, other (G-tube in place with some leakage). Absent: tenderness - Male exam: Present: normal inspection - Extremities Exam Extremities exam: Present: other (Appears to be bedbound, atrophied muscles and lower extremities, otherwise warm and dry) - Neurological Exam Neurological exam: Present: alert, CN II-XII intact (Grossly intact, although the patient will not follow commands). Absent: oriented X3 (Unable to respond to name time or place, unclear of baseline but seems appropriate. Maintaining his airway) - Skin Skin exam: Present: warm, dry, intact, normal color Course Course Narrative: 71-year-old male [facility] from [facility] with [facility]. According EMS, the [facility] states the patient was at his baseline and were not going to transfer the patient, but they did due to family request. Patient's a poor historian so we will obtain broad workup with likely admission. - Reevaluation(s) Reevaluation #1: workup is back, mildly elevated leukocytosis from baseline, mildly elevated troponin, but again at baseline, mildly elevated BNP that is also at baseline. We will paged hospitalist for admission - Consultations Consultation #1: Spoke with the hospitalist, Dr. Prasad. Did not think the patient would meet admission criteria. Reviewed with my attending and the hospitalist. We agree that with his labwork essentially at baseline, he will also be getting dialysis today that it would be reasonable to discharge back to ECF with return for development of any fever, new/worsening changes, or other concerns. Dr. Prasad will be down to evaluate patient in ED to ensure he is agreeable with discharge as well. Time: 04:28 Consultation #2: Dr. Prasad down to evaluate patient. Did think that the patient should be admitted for observation. Rectal temperature was 100.4. States that he took care of this patient previously, during his cardiac arrest. And would like to at least observe for 424 hours to ensure he does not have any more positive blood cultures. Time: 04:44 Vital Signs Temperature 98.5 F 04/05/17 02:46 Pulse Rate 95 04/05/17 02:46 Respiratory Rate 20 04/05/17 02:46 Blood Pressure 150/89 04/05/17 02:46 O2 Sat by Pulse Oximetry 95 04/05/17 02:46 Temperature 100.4 F H 04/05/17 04:43 Pulse Rate 110 04/05/17 04:43 Respiratory Rate 22 04/05/17 04:43 Blood Pressure 163/97 04/05/17 04:43 O2 Sat by Pulse Oximetry 95 04/05/17 04:43 Oxygen Delivery Oxygen Delivery Room Air Medical Decision Making - Medical Records Medical records reviewed: Yes I reviewed the patient's medical records. - Lab Data Lab results reviewed: Yes I reviewed the patient's lab results. Result diagrams: 04/05/17 03:10 04/05/17 03:10 Lab Results 04/05/17 04/05/17 04/05/17 Range/Units 03:10 03:10 03:10 WBC 16.9 H (4.3-11.1) K/mcL RBC 2.94 L (4.19-5.50) M/mcL Hgb 8.4 L (12.9-16.9) g/dL Hct 27.0 L (37.5-50.1) % MCV 91.8 (83.0-100.0) fL MCH 28.6 (28.0-33.3) pg MCHC 31.1 L (31.6-35.5) g/dL RDW 17.2 H (11.5-14.5) % Plt Count 262 (140-400) K/mcL MPV 10.5 (9.4-12.4) fL Immature Gran % 1.3 (0-4) % Seg Neutrophils % 69.2 % Lymphocytes % 20.2 % Monocytes % 6.9 % Eosinophils % 2.2 % Basophils % 0.2 % Neutrophils # 11.7 H (1.6-8.9) K/mcL Lymphocytes # 3.4 (0.6-4.6) K/mcL Monocytes # 1.2 (0.0-1.3) K/mcL Eosinophils # 0.4 (0.0-0.6) K/mcL Basophils # 0.0 (0.0-0.2) K/mcL Immature Plt Fraction 4.3 (1.1-6.1) % PT 11.7 (9.4-12.1) Seconds INR 1.1 APTT 28.0 (26.0-36.0) Seconds Sodium 140 (136-145) mEq/L Potassium 4.6 H (3.5-4.5) mEq/L Chloride 95 L (98-109) mEq/L Carbon Dioxide 35 H (19-29) mEq/L BUN 50 H (8-26) mg/dL Creatinine 4.74 H (0.72-1.25) mg/dL Est GFR ( Amer) 15 L (> 60) Est GFR (Non-Af Amer) 12 L (> 60) BUN/Creatinine Ratio 11 (6-26) Glucose 102 H (70-99) mg/dL Calculated Osmolality 304 H (280-300) Lactic Acid (0.5-2.2) mmol/L Calcium 10.1 (8.6-10.8) mg/dL Phosphorus 2.2 L (2.3-4.7) mg/dL Magnesium 1.8 (1.6-2.6) mg/dL Total Bilirubin 0.6 (0.2-1.2) mg/dL Direct Bilirubin 0.3 (0.0-0.5) mg/dL Indirect Bilirubin 0.3 (0.0-1.2) mg/dL AST 33 (5-34) Units/L ALT 27 (0-55) Units/L Alkaline Phosphatase 126 (38-126) Units/L Ammonia (18-72) mcmol/L Troponin I (0-0.03) ng/mL B-Natriuretic Peptide (0-100) pg/mL Serum Total Protein 8.1 (6.0-8.3) g/dL Albumin 2.6 L (3.5-5.0) g/dL Globulin 5.5 H (2.4-3.5) g/dL Albumin/Globulin Ratio 0.5 L (1.1-2.2) Lipase 52 (8-78) Units/L 04/05/17 04/05/17 04/05/17 Range/Units 03:10 03:10 03:10 WBC (4.3-11.1) K/mcL RBC (4.19-5.50) M/mcL Hgb (12.9-16.9) g/dL Hct (37.5-50.1) % MCV (83.0-100.0) fL MCH (28.0-33.3) pg MCHC (31.6-35.5) g/dL RDW (11.5-14.5) % Plt Count (140-400) K/mcL MPV (9.4-12.4) fL Immature Gran % (0-4) % Seg Neutrophils % % Lymphocytes % % Monocytes % % Eosinophils % % Basophils % % Neutrophils # (1.6-8.9) K/mcL Lymphocytes # (0.6-4.6) K/mcL Monocytes # (0.0-1.3) K/mcL Eosinophils # (0.0-0.6) K/mcL Basophils # (0.0-0.2) K/mcL Immature Plt Fraction (1.1-6.1) % PT (9.4-12.1) Seconds INR APTT (26.0-36.0) Seconds Sodium (136-145) mEq/L Potassium (3.5-4.5) mEq/L Chloride (98-109) mEq/L Carbon Dioxide (19-29) mEq/L BUN (8-26) mg/dL Creatinine (0.72-1.25) mg/dL Est GFR ( Amer) (> 60) Est GFR (Non-Af Amer) (> 60) BUN/Creatinine Ratio (6-26) Glucose (70-99) mg/dL Calculated Osmolality (280-300) Lactic Acid 0.9 (0.5-2.2) mmol/L Calcium (8.6-10.8) mg/dL Phosphorus (2.3-4.7) mg/dL Magnesium (1.6-2.6) mg/dL Total Bilirubin (0.2-1.2) mg/dL Direct Bilirubin (0.0-0.5) mg/dL Indirect Bilirubin (0.0-1.2) mg/dL AST (5-34) Units/L ALT (0-55) Units/L Alkaline Phosphatase (38-126) Units/L Ammonia (18-72) mcmol/L Troponin I 0.09 H* (0-0.03) ng/mL B-Natriuretic Peptide 2579 H (0-100) pg/mL Serum Total Protein (6.0-8.3) g/dL Albumin (3.5-5.0) g/dL Globulin (2.4-3.5) g/dL Albumin/Globulin Ratio (1.1-2.2) Lipase (8-78) Units/L 04/05/17 Range/Units 03:10 WBC (4.3-11.1) K/mcL RBC (4.19-5.50) M/mcL Hgb (12.9-16.9) g/dL Hct (37.5-50.1) % MCV (83.0-100.0) fL MCH (28.0-33.3) pg MCHC (31.6-35.5) g/dL RDW (11.5-14.5) % Plt Count (140-400) K/mcL MPV (9.4-12.4) fL Immature Gran % (0-4) % Seg Neutrophils % % Lymphocytes % % Monocytes % % Eosinophils % % Basophils % % Neutrophils # (1.6-8.9) K/mcL Lymphocytes # (0.6-4.6) K/mcL Monocytes # (0.0-1.3) K/mcL Eosinophils # (0.0-0.6) K/mcL Basophils # (0.0-0.2) K/mcL Immature Plt Fraction (1.1-6.1) % PT (9.4-12.1) Seconds INR APTT (26.0-36.0) Seconds Sodium (136-145) mEq/L Potassium (3.5-4.5) mEq/L Chloride (98-109) mEq/L Carbon Dioxide (19-29) mEq/L BUN (8-26) mg/dL Creatinine (0.72-1.25) mg/dL Est GFR ( Amer) (> 60) Est GFR (Non-Af Amer) (> 60) BUN/Creatinine Ratio (6-26) Glucose (70-99) mg/dL Calculated Osmolality (280-300) Lactic Acid (0.5-2.2) mmol/L Calcium (8.6-10.8) mg/dL Phosphorus (2.3-4.7) mg/dL Magnesium (1.6-2.6) mg/dL Total Bilirubin (0.2-1.2) mg/dL Direct Bilirubin (0.0-0.5) mg/dL Indirect Bilirubin (0.0-1.2) mg/dL AST (5-34) Units/L ALT (0-55) Units/L Alkaline Phosphatase (38-126) Units/L Ammonia 31 (18-72) mcmol/L Troponin I (0-0.03) ng/mL B-Natriuretic Peptide (0-100) pg/mL Serum Total Protein (6.0-8.3) g/dL Albumin (3.5-5.0) g/dL Globulin (2.4-3.5) g/dL Albumin/Globulin Ratio (1.1-2.2) Lipase (8-78) Units/L - Radiology Data Radiology results reviewed: Yes I reviewed the patient's radiology results. - EKG Data EKG #1 EKG attestation: Yes I reviewed and interpreted this EKG. EKG results narrative: A. fib, rate 109, QRS 117, QTC 420, left axis deviation, left anterior fascicular block, otherwise no changes from previous S.B.A.R. - S.B.A.R. Situation: Demographics, MOA Background: Presenting Complaint, Relevant PMH, Meds, & Allergies Assessment: Vital Signs, Course and respsone to treatment, Exam Concerns, Patient/Family Expectation, Pertinant Lab Results, Outstanding Labs Recommendation: Barrier(s) to disposition, Recommendation based on pending studies, treatments, or consults S.B.A.R. Report Given to: Dr. Shanice Lopes Repor Time: 04:46 Attestation Statement - Attestation Attestation: I personally interviewed and examined this patient and my medical decision- making was reviewed with the Resident Physician, Dr. Soliz. I agree with the documented findings, disposition and treatment plan as described except to the extent set forth below. Patient is a 71-year-old black male who presents to the emergency department sent from his ECF, due to family concerns with patient with visualized shivering. Family requested that the patient be sent to the ED for further evaluation. Patient was indeed shivering on arrival and that has continued throughout his ED course here. Patient personally month ago was seen here in the hospital and was admitted for cardiac arrest with anoxic brain injury. Since that time patient has been able to Indicate verbally and can answer yes no questions and follow commands. Family are not at bedside to provide any additional history. Medics state that the family was concerned for possible infection or sepsis. Patient arrives with stable vital signs to the emergency department. I agree with patient's limited examination as documented. Patient's EKG shows atrial fibrillation. Chest x-ray is unremarkable. Patient was placed on a rn cardiac and continuous pulse ox labs are drawn and sent and urinalysis was obtained. Patient does have an elevated white count with a left shift. Patient also with chronically elevated BUN/ creatinine. No infectious etiology was determined based on labs and imaging in the ED. We empirically started the patient on IV antibiotics. Hospitalist came down to evaluate the patient in person and after seeing him also agrees that he should be admitted for further evaluation and treatment. Patient remains hemodynamically stable at this time
[2017-04-05 03:30] LABS: Basophils % 0.2 %; Eosinophils # 0.4 K/mcL (0.0-0.6); Eosinophils % 2.2 %; Hemoglobin 8.4 g/dL (12.9-16.9); Immature Granulocytes % 1.3 % (0-4); Immature Platelets 4.3 % (1.1-6.1); Lymphocytes # 3.4 K/mcL (0.6-4.6); Lymphocytes % 20.2 %; Mean Corpuscular HGB Conc 31.1 g/dL (31.6-35.5); Mean Corpuscular Hemoglobin 28.6 pg (28.0-33.3); Mean Corpuscular Volume 91.8 fL (83.0-100.0); Mean Platelet Volume 10.5 fL (9.4-12.4); Monocytes # 1.2 K/mcL (0.0-1.3); Monocytes % 6.9 %; Neutrophils # 11.7 K/mcL (1.6-8.9); Platelet Count 262 K/mcL (140-400); Red Blood Count 2.94 M/mcL (4.19-5.50); Red Cell Distribution Width 17.2 % (11.5-14.5); Segmented Neutrophils % 69.2 %
[2017-04-05 03:36] LABS: INR 1.1; Prothrombin Time 11.7 Seconds (9.4-12.1)
[2017-04-05 03:50] LABS: Albumin 2.6 g/dL (3.5-5.0); Albumin/Globulin Ratio 0.5 (1.1-2.2); Bilirubin,Direct 0.3 mg/dL (0.0-0.5); Calcium 10.1 mg/dL (8.6-10.8); Globulin 5.5 g/dL (2.4-3.5); Magnesium 1.8 mg/dL (1.6-2.6); Phosphorous 2.2 mg/dL (2.3-4.7); Potassium 4.6 mEq/L (3.5-4.5); Total Protein 8.1 g/dL (6.0-8.3)
[2017-04-05 03:59] LABS: Bilirubin,Indirect 0.3 mg/dL (0.0-1.2); Bilirubin,Total 0.6 mg/dL (0.2-1.2)
[2017-04-05] MEDS ORDERED: Cefepime HCl 1,000 MG in D5% in Water (Mini-Bag+) 100 ML IVPB STA (04:48)
--- NOTE | 2017-04-05 04:51 | Internal Med History&Physical ---
Date of Encounter: 04/05/17 Time of Encounter: 04:49 Assessment and Plan (1) Elevated white blood cell count Current visit: Yes Status: Acute Upon review of his prior medical record he has had elevated white blood cell count however at currently trends up in his white count is higher than it has been before. This could be in the context of sepsis. His measured temperature was normal and the EGD. I checked a rectal temperature and it was 100.4. Patient continues to shiver and therefore blood cultures were sent. Given his history of recent Klebsiella bacteremia I am concerned of recurrent bacteremia and therefore we will place the patient in observation, will treat him with 1 dose of IV cefepime and follow-up blood cultures. We will monitor white blood cell count, temperature curve and clinical response to antibiotics. Qualifiers: Leukocytosis type: unspecified Qualified Code(s): D72.829 - Elevated white blood cell count, unspecified (2) Shivering Current visit: Yes Status: Acute Currently in the context of febrile reaction caused by infection. Will monitor temperature curve and follow cultures. (3) History of bacteremia Current visit: Yes Status: Acute (4) Anoxic brain injury Current visit: Yes Status: Acute Monitor mental status. Full precautions. Aspiration precautions. Patient has chronic dysphagia secondary to anoxic brain injury and currently receives tube feeding. We will restart his tube feeds per care home regimen. (5) Chronic atrial fibrillation Current visit: Yes Status: Acute He does not receive chronic anticoagulation due to history of hemoptysis. Continue with carvedilol for rate control. Consider adding diltiazem (6) DVT prophylaxis Current visit: No Status: Acute Subcutaneous heparin (7) End-stage renal disease Current visit: No Status: Chronic Consult with nephrology. Continue with end-stage renal disease. Internal Medicine - H&P: HPI Chief complaint: Shivering Admitted From: Emergency Dept Plans for Post Hospital Care: Transfer Residential Facility History of present illness: Mr. Hernandez is a 71 year old male with past medical history of ESRD on hemodialysis, recent admission for Klebsiella bacteremia during which he suffered a cardiac arrest and was successfully resuscitated It is brought from LTAC for evaluation of shivering. The patient suffers with anoxic brain injury and cannot provide any meaningful history. He answers simple questions appropriately, responds to greeting and follows simple commands. There is no family available at this time to provide any additional history. Per ED report family noticed that patient had been shivering today at the care home and therefore they wanted him evaluated in the hospital. Upon initial evaluation he was found to be tachycardic but afebrile. Initial workup revealed a borderline elevated troponin and elevated white blood cell count. A 10 point review of systems was limited by anoxic brain injury, was generally negative. Patient reports that he still urinates once a day, denies dysuria. Past Med Surg Social Fam HX - Past Medical History Medical history: aortic aneurysm, diabetes, dialysis, hyperlipidemia, hypertension, myocardial infarction, renal disease, other Psychiatric history: anxiety, depression - Past Surgical History Surgical History: angioplasty/stent, cholecystectomy, other - Social History Smoking Status: Current every day smoker Smokeless Tobacco Status: No Alcohol use: rarely Drug use: none - Family History Mother Hx Family Cardiac Disorders: Yes (HTN) Father Adopted: No Living Status: Hx Family Cardiac Disorders: Yes (HTN) Hx Family Respiratory Disorders: No Hx Family Cancer: Yes Hx Family GI Disorders: No Hx Family Endocrine Disorder: No Hx Family Neuromuscular Disorders: No Hx Family Neurologic Disorders: No Hx Family HEENT Disorders: No Hx Family Autoimmune Disorders: No Internal Medicine - H&P: Meds Budesonide/Formoterol 160/4.5 [Symbicort 160/4.5] 2 puff IH BIDR 09/22/16 [ History] Cinacalcet [Sensipar] 30 mg PO DAILY 09/22/16 [History] Aspirin 81 mg PO DAILY #0 tab.chew 09/28/16 [Rx] Docusate [Colace] 100 mg PO BID PRN #0 capsule 02/24/17 [Rx] Carvedilol [Coreg] 6.25 mg PO BIDWM tablet 03/07/17 [Rx] Darbepoetin [Aranesp] 100 mcg SQ QWEEK #0 syringe 03/07/17 [Rx] Heparin 5,000 unit SQ Q8H #0 vial 03/07/17 [Rx] Ipratropium/Albuterol Neb [Duoneb] 3 ml IH [id number] #0 inhsol 03/07/17 [Rx] Lacri-Lube [Lacri-lube] 1 appl BOTH EYES Q2HR PRN #0 tube 03/07/17 [Rx] Pantoprazole [Protonix] 40 mg IVP DAILY vial 03/07/17 [Rx] amLODIPine [Norvasc] 2.5 mg PO DAILY #0 03/07/17 [Rx] Allergies iodine Allergy (Verified 02/26/17 11:13) Rash rofecoxib [From Vioxx] Allergy (Verified 02/21/17 06:52) Swelling of Lip/Tongue/Throat All Systems PM: A 10-system review of systems was performed and is negative for pertinent findings except as documented above in the HPI. - Constitutional Vitals: Temp Pulse Resp BP Pulse Ox 100.4 F H 110 22 163/97 95 04/05/17 04:43 04/05/17 04:43 04/05/17 04:43 04/05/17 04:43 04/05/17 04:43 General appearance: Present: A&O X 1 (Alert to self, not to place or time), no acute distress (Currently continuously shivering to involve both upper extremities), answers questions appropriately (Answers basic questions) - Head Head exam: Present: atraumatic, normocephalic - Eye Eye exam: Present: PERRL, conjuntiva pink, sclera anicteric Pupils: Present: PERRL - Neck Neck exam general surgery: Present: supple, trachea midline. Absent: lymphadenopathy - Respiratory Respiratory exam: Present: CTAB. Absent: accessory muscle use, rales, rhonchi, wheezes - Cardiovascular Cardiovascular exam: Present: irregular rhythm, +S1, +S2. Absent: diastolic murmur, gallop, rubs, systolic murmur - GI/Abdominal GI/Abdominal exam: Present: normal bowel sounds, soft, no peritoneal signs. Absent: distended, tenderness - Extremities Exam Extremities exam: Present: warm, radial pulses palpable and symmetrical. Absent : calf tenderness, cyanotic, pedal edema Additional comments: Right forearm AV fistula with palpable thrill - Skin Skin exam: Present: dry, intact Internal Med - H&P Results - Labs CBC & Chem 7: 04/05/17 03:10 04/05/17 03:10 Labs: Short CBC 04/05/17 Range/Units 03:10 WBC 16.9 H (4.3-11.1) K/mcL Hgb 8.4 L (12.9-16.9) g/dL Hct 27.0 L (37.5-50.1) % Plt Count 262 (140-400) K/mcL Neutrophils # 11.7 H (1.6-8.9) K/mcL BMP 04/05/17 03:10 Sodium 140 Potassium 4.6 H Chloride 95 L Carbon Dioxide 35 H BUN 50 H Creatinine 4.74 H Glucose 102 H Calcium 10.1 Cardiac Enzymes 04/05/17 Range/Units 03:10 Troponin I 0.09 H* (0-0.03) ng/mL Liver Function 04/05/17 Range/Units 03:10 Total Bilirubin 0.6 (0.2-1.2) mg/dL Direct Bilirubin 0.3 (0.0-0.5) mg/dL AST 33 (5-34) Units/L ALT 27 (0-55) Units/L Alkaline Phosphatase 126 (38-126) Units/L Albumin 2.6 L (3.5-5.0) g/dL - Impressions ITS Impressions Chest x-ray reviewed by myself shows no infiltrate, effusion or vascular congestion. Chest X-Ray 04/05/17 02:52 IMPRESSION: 1. Stable moderate enlargement of the cardiac silhouette. 2. Enlargement of the pulmonary artery which can be seen with elevated pulmonary arterial pressures. 3. No acute pulmonary abnormality. D/ / Andres Andre MD / Andres Andre MD Interpreting Provider: Andres Andre MD Head CT 04/05/17 02:53 IMPRESSION: Limited study with grossly stable small vessel chronic ischemic changes. There is no definite acute hemorrhage or evidence to suggest acute ischemia. D/ / Nixon Kearns MD / Nixon Kearns MD Interpreting Provider: Nixon Kearns MD
[2017-04-05] MEDS ORDERED: Lacri-Lube 3.5 GM TUBE BOTH EYES PRN (05:08)
[2017-04-05] MEDS ORDERED: Acetaminophen 325 MG TABLET PO PRN (05:09)
[2017-04-05] MEDS: *HR* Heparin 5,000 UNIT/ML VIAL SQ SCH ×3 (06:13→21:11)
[2017-04-05] MEDS: Budesonide/Formoterol 160/4.5 MDI IH SCH ×2 (07:52→20:09)
[2017-04-05] MEDS: Ipratropium/Albuterol Neb 3 ML IH SCH ×5 (07:52→23:56)
[2017-04-05] MEDS: amLODIPine 5 MG TABLET PO SCH (08:44)
[2017-04-05] MEDS: Aspirin 81 MG TAB.CHEW PO SCH (08:44)
[2017-04-05] MEDS ORDERED: Pantoprazole 40 MG VIAL IVP SCH (09:00)
[2017-04-05] MEDS ORDERED: 0.9 % Sodium Chloride 250 ML IVC PRN (09:23)
--- NOTE | 2017-04-05 09:24 | Nephrology Consult Note ---
Date of Encounter: 04/05/17 Time of Encounter: 08:55 Assessment and Plan (1) ESRD on dialysis Current Visit: Yes Status: Chronic Leukocytosis. Febrile at times. "Shivers" appear more as tremors, jerking. Question medication related. S/P cardiac arrest with anoxic brain injury. ESRD- will dialyze today, keeping MWF schedule. Orders given. History of Present Illness - Reason for Consult end stage renal disease - History of Present Illness Mr. Hernandez is a 71 year old male with ESRD who dialyzes at [facility] on MWF. Last dialysis this past Monday. Other PMH- Afib-chronic, CHF, recent cardiac arrrest with anoxuc brain injury, aortic aneurysm, diabetes, hyperlipidemia, hypertension, myocardial infarction, CAD, angioplasty/stent, cholecystectomy, anxiety, depression. Mr. Hernandez is currently residing in [facility] following cardiac arrest with anoxic brain injury. 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 Mr. Hernandez was sent from facility to [facility] per family request for noted shivers. Temp. 100.4 recatally. Leukocytosis 16.9. This morning Mr. Hernandez is alert, speech clear, answers "yes, no, I don't know or gives wrong answer to whereabouts." Even, cyclical movements noted that appear as tremors, mild jerking. Temp 99.5 axillary today. Past Med Surg Social Fam HX - Past Medical History Medical history: aortic aneurysm, diabetes, dialysis, hyperlipidemia, hypertension, myocardial infarction, renal disease, other Psychiatric history: anxiety, depression - Past Surgical History Surgical History: angioplasty/stent, cholecystectomy, other - Social History Smoking Status: Smoker, status unknown Smokeless Tobacco Status: No Alcohol use: unknown Drug use: unknown - Family History Mother Hx Family Cardiac Disorders: Yes (HTN) Father Adopted: No Living Status: Hx Family Cardiac Disorders: Yes (HTN) Hx Family Respiratory Disorders: No Hx Family Cancer: Yes Hx Family GI Disorders: No Hx Family Endocrine Disorder: No Hx Family Neuromuscular Disorders: No Hx Family Neurologic Disorders: No Hx Family HEENT Disorders: No Hx Family Autoimmune Disorders: No Medications and Allergies Budesonide/Formoterol 160/4.5 [Symbicort 160/4.5] 2 puff IH BIDR 09/22/16 [ History] Aspirin 81 mg PO DAILY #0 tab.chew 09/28/16 [Rx] Darbepoetin [Aranesp] 100 mcg SQ QWEEK #0 syringe 03/07/17 [Rx] Heparin 5,000 unit SQ Q8H #0 vial 03/07/17 [Rx] Ipratropium/Albuterol Neb [Duoneb] 3 ml IH [id number] #0 inhsol 03/07/17 [Rx] Metoprolol [Lopressor] 75 mg PO BID 04/05/17 [History] Quetiapine Fumarate [SEROquel] 25 mg PO BID 04/05/17 [History] Quetiapine Fumarate [Seroquel] 50 mg PO HS 04/05/17 [History] Allergies iodine Allergy (Verified 02/26/17 11:13) Rash rofecoxib [From Vioxx] Allergy (Verified 02/21/17 06:52) Swelling of Lip/Tongue/Throat Review of Systems ROS unobtainable: due to mental status Exam - Vital Signs Vital signs: Initial Vital Signs Temp Pulse Resp BP Pulse Ox 98.5 F 95 20 150/89 95 04/05/17 02:46 04/05/17 02:46 04/05/17 02:46 04/05/17 02:46 04/05/17 02:46 Vital Signs - Last 8 Hours Temp Pulse Resp BP Pulse Ox 04/05/17 07:54 18 97 04/05/17 07:02 99.5 F 109 18 170/81 96 04/05/17 06:32 97.9 F 100 18 150/97 95 04/05/17 05:37 16 172/91 Intake and Output 04/04/17 04/05/17 04/05/17 23:59 07:59 15:59 Intake Total 0 / 0 Balance 0 / 0 Intake: Oral 0 / 0 Other: Stool Size Small Stool Consistency soft Stool Color Brown # Bowel Movements 1 Weight 88.3 kg Patient Weight 04/05/17 23:59 Weight 88.3 kg - General Appearance General appearance: well-developed, well-nourished, appears started age, obese EENT: mucous membranes moist Neck: no JVD, no carotid bruit Respiratory: clear Cardiology: no edema, irregular rhythm Additional Comments: shriveled appearance of skin to LE Gastrointestinal: normoactive bowel sounds, no tenderness Additional Comments: G tube Integumentary: warm and dry Psychiatric: cooperative Results - Lab Results 04/05/17 03:10 04/05/17 03:10 Most recent lab results Calcium 10.1 mg/dL (8.6-10.8) 04/05/17 03:10 Phosphorus 2.2 mg/dL (2.3-4.7) L 04/05/17 03:10 Magnesium 1.8 mg/dL (1.6-2.6) 04/05/17 03:10 Consult Discharge Plan - Plan Referrals: Chilo Lewis Jr, MD [Non-Partnered Physician] - 04/20/17 11:00 am
[2017-04-05] MEDS ORDERED: 0.9 % Sodium Chloride 1,000 ML PRIME SCH (09:30)
[2017-04-05] MEDS ORDERED: 0.9 % Sodium Chloride 1,000 ML ONE (10:02)
[2017-04-05 12:41] LABS: Hepatitis B Surface Antigen Nonreactive (Nonreactive)
--- NOTE | 2017-04-05 16:42 | Internal Med Progress Note ---
Date of Encounter: 04/05/17 Time of Encounter: 16:38 - Assessment and plan (1) SIRS (systemic inflammatory response syndrome) Current Visit: Yes Status: Acute Assessment and plan: Pt does meet sepsis criteria with elevated WBC and Fever T max 100.4 No clear source of inf CXR - negative urine analysis - P Will start him on Rocephin 1gm IV daily as prophylactic for now Blood cx were drawn last night (2) Leukocytosis Current Visit: Yes Status: Acute Qualifiers: Leukocytosis type: unspecified Qualified Code(s): D72.829 - Elevated white blood cell count, unspecified (3) Resting tremor Current Visit: Yes Status: Acute Assessment and plan: Family is concerned about this new onset tremors His tremors could be due to his anoxic brain injury from recent cardiac arrest CT of head - no acute changes Will request for Neurology evaluation also will try obtain records from LTAC Resumed him home med Seroquel (4) Anoxic brain injury Current Visit: Yes Status: Acute (5) ESRD on dialysis Current Visit: Yes Status: Chronic Assessment and plan: HD as per nephro (6) Diabetes Current Visit: No Status: Chronic Assessment and plan: ISS at low Qualifiers: Diabetes mellitus type: type 2 Diabetes mellitus complication status: with kidney complications Diabetes mellitus complication detail: with other kidney complication Diabetes mellitus [facility] insulin use: without terminologist use Qualified Code(s): E11.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 Hernandez is a 71 year old male with past medical history of ESRD on hemodialysis, recent admission for Klebsiella bacteremia during which he suffered a cardiac arrest and was successfully resuscitated. Now he was sent to our ER from [facility] for evaluation of shivering. The patient suffers with anoxic brain injury and cannot provide any meaningful history. He answers simple questions appropriately, responds to greeting and follows simple commands.Pt just came back from HD, family is also at bed side, they are concerned about his his tremors. Pt is alert, awake and Oriented to self. Following all the commands. - Constitutional Vitals: Temp Pulse Resp BP Pulse Ox 98.7 F 96 20 129/80 92 04/05/17 15:49 04/05/17 15:49 04/05/17 15:49 04/05/17 15:49 04/05/17 15:49 General appearance: Present: A&O X 1 (Alert to self, not to place or time), no acute distress (Currently continuously shivering to involve both upper extremities), answers questions appropriately (Answers basic questions) - Head Head exam: Present: atraumatic, normal inspection - Neck Neck exam general surgery: Present: supple. Absent: tenderness - Respiratory Respiratory exam: Present: decreased breath sounds. Absent: rales, respiratory distress, rhonchi, wheezes - Cardiovascular Cardiovascular exam: Present: RRR, +S1, +S2. Absent: systolic murmur - GI/Abdominal GI/Abdominal exam: Present: normal bowel sounds, soft. Absent: rebound, rigid, tenderness Additional comments: PEG tube + - Extremities Exam Extremities exam: Present: pedal edema. Absent: calf tenderness, tenderness Additional comments: resting tremors in both UE noticed - Neurological Exam Neurological exam: Present: alert, reflexes normal, speech deficit. Absent: strengths equal and symetr throughout Additional comments: resting tremors in both UE. - Psychiatric Psychiatric exam: Present: anxious Internal Medicine: Result - Labs CBC & Chem 7: 04/05/17 03:10 04/05/17 03:10 Labs: Cardiac Enzymes 04/05/17 04/05/17 Range/Units 07:44 13:48 Troponin I 0.11 H* 0.11 H* (0-0.03) ng/mL - ABG Interpretation ABG results: PT/INR, D-dimer PT 11.7 Seconds (9.4-12.1) 04/05/17 03:10 Consult Discharge Plan - Plan Referrals: Chilo Lewis Jr, MD [Non-Partnered Physician] - 04/20/17 11:00 am
[2017-04-05] MEDS ORDERED: Dextrose Gel 15 GM PO PRN ×2 (17:10)
[2017-04-05] MEDS ORDERED: D5% in Water 1,000 ML IVC PRN (17:10)
[2017-04-05] MEDS ORDERED: *HR* Dextrose 50 % in Water (Syg) 50 ML SYRINGE IVP PRN (17:10)
--- NOTE | 2017-04-05 20:32 | Electrocardiograph Report ---
[address] [place] [address] Test Date: 2017-04-05 Pat Name: Jabier Hernandez Department: 102 Room: 2N03 Gender: M Button Grader: Nova : 1945 Requested By: Alberto Soliz Order Number: [id number] Reading MD: Troy Abdi MD Measurements Intervals [place] Rate: 109 P: AR: 0 QRS: -71 QRSD: 117 T: 71 QT: 356 QTc: 420 Interpretive Statements ATRIAL FIBRILLATION WITH RAPID VENTRICULAR RESPONSE LEFT ANTERIOR FASCICULAR BLOCK Poor R wave progression Electronically Signed On 04-05-2017 20:30:44 EDT by Troy Abdi MD
[2017-04-06] MEDS: *HR* Heparin 5,000 UNIT/ML VIAL SQ SCH ×3 (06:08→22:07)
[2017-04-06] MEDS: Ipratropium/Albuterol Neb 3 ML IH SCH ×6 (06:27→23:10)
[2017-04-06 06:52] LABS: Albumin 2.6 g/dL (3.5-5.0); Albumin/Globulin Ratio 0.5 (1.1-2.2); Bilirubin,Total 0.5 mg/dL (0.2-1.2); Calcium 9.8 mg/dL (8.6-10.8); Globulin 5.6 g/dL (2.4-3.5); Potassium 4.3 mEq/L (3.5-4.5); Total Protein 8.2 g/dL (6.0-8.3)
[2017-04-06 07:04] LABS: Basophils # 0.1 K/mcL (0.0-0.2); Basophils % 0.4 %; Eosinophils # 0.3 K/mcL (0.0-0.6); Eosinophils % 2.5 %; Hematocrit 29.1 % (37.5-50.1); Immature Granulocytes % 1.3 % (0-4); Lymphocytes # 2.3 K/mcL (0.6-4.6); Lymphocytes % 18.8 %; Mean Corpuscular HGB Conc 30.9 g/dL (31.6-35.5); Mean Corpuscular Hemoglobin 28.7 pg (28.0-33.3); Mean Corpuscular Volume 92.7 fL (83.0-100.0); Mean Platelet Volume 10.5 fL (9.4-12.4); Monocytes % 7.6 %; Neutrophils # 8.6 K/mcL (1.6-8.9); Platelet Count 243 K/mcL (140-400); Red Blood Count 3.14 M/mcL (4.19-5.50); Red Cell Distribution Width 17.7 % (11.5-14.5); Segmented Neutrophils % 69.4 %
[2017-04-06] MEDS: Budesonide/Formoterol 160/4.5 MDI IH SCH ×2 (07:38→20:23)
[2017-04-06] MEDS: Insulin LISPRO 300 UNITS/3 ML VIAL SQ SCH ×3 (08:58→16:36)
[2017-04-06] MEDS: amLODIPine 5 MG TABLET PO SCH (09:04)
[2017-04-06] MEDS: Aspirin 81 MG TAB.CHEW PO SCH (09:05)
--- NOTE | 2017-04-06 09:14 | Internal Med Progress Note ---
Date of Encounter: 04/06/17 Time of Encounter: 09:12 - Assessment and plan (1) SIRS (systemic inflammatory response syndrome) Current Visit: Yes Status: Acute Assessment and plan: Pt does meet SIRS criteria with elevated WBC and Fever T max 100.4 No clear source of inf WBC started trending down CXR - negative urine analysis - P Cont him on Rocephin 1gm IV daily as prophylactic for now Blood cx so far no growth in 24hrs (2) Leukocytosis Current Visit: Yes Status: Acute Qualifiers: Leukocytosis type: unspecified Qualified Code(s): D72.829 - Elevated white blood cell count, unspecified (3) Resting tremor Current Visit: Yes Status: Acute Assessment and plan: Family is concerned about this new onset tremors He also had twitching in Rt UE - ?? Seizure His tremors could be due to his anoxic brain injury from recent cardiac arrest CT of head - no acute changes Waiting on Neurologist evaluation will get EEG today... may not stay still for MRI of brain will talk to neurologist also will try obtain records from LTAC Resumed him home med Seroquel (4) Anoxic brain injury Current Visit: Yes Status: Acute (5) ESRD on dialysis Current Visit: Yes Status: Chronic Assessment and plan: HD as per nephro (6) Diabetes Current Visit: No Status: Chronic Assessment and plan: ISS at low Qualifiers: Diabetes mellitus type: type 2 Diabetes mellitus complication status: with kidney complications Diabetes mellitus complication detail: with other kidney complication Diabetes mellitus meterman insulin use: without meterman use Qualified Code(s): E11.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 Hernandez is a 71 year old male with past medical history of ESRD on hemodialysis, recent admission for Klebsiella bacteremia during which he suffered a cardiac arrest and was successfully resuscitated. Now he was sent to our ER from [facility] for evaluation of shivering. The patient suffers with anoxic brain injury and cannot provide any meaningful history. He answers simple questions appropriately, responds to greeting and follows simple commands. Pt is alert, awake and Oriented to self. Following all the commands. Still having twitching in RUE and resting tremors in both UE - Constitutional Vitals: Temp Pulse Resp BP Pulse Ox 98.7 F 86 18 159/80 96 04/06/17 07:57 04/06/17 07:57 04/06/17 07:57 04/06/17 07:57 04/06/17 07:57 General appearance: Present: A&O X 1 (Alert to self, not to place or time), no acute distress (Currently continuously shivering to involve both upper extremities), answers questions appropriately (Answers basic questions) - Head Head exam: Present: atraumatic, normal inspection - Respiratory Respiratory exam: Present: decreased breath sounds, wheezes. Absent: rales, respiratory distress, rhonchi - Cardiovascular Cardiovascular exam: Present: RRR, +S1, +S2. Absent: systolic murmur - GI/Abdominal GI/Abdominal exam: Present: normal bowel sounds, soft. Absent: rebound, rigid, tenderness Additional comments: PEG tube + - Extremities Exam Extremities exam: Present: pedal edema (trace). Absent: calf tenderness, tenderness - Neurological Exam Neurological exam: Present: alert, oriented X3 - Psychiatric Psychiatric exam: Present: anxious Internal Medicine: Result - Labs CBC & Chem 7: 04/06/17 06:16 04/06/17 06:16 Labs: Short CBC 04/06/17 Range/Units 06:16 WBC 12.4 H (4.3-11.1) K/mcL Hgb 9.0 L (12.9-16.9) g/dL Hct 29.1 L (37.5-50.1) % Plt Count 243 (140-400) K/mcL Neutrophils # 8.6 (1.6-8.9) K/mcL BMP 04/06/17 06:16 Sodium 138 Potassium 4.3 Chloride 96 L Carbon Dioxide 32 H BUN 36 H D Creatinine 3.83 H Glucose 113 H Calcium 9.8 Cardiac Enzymes 04/05/17 Range/Units 13:48 Troponin I 0.11 H* (0-0.03) ng/mL Liver Function 04/06/17 Range/Units 06:16 Total Bilirubin 0.5 (0.2-1.2) mg/dL AST 30 (5-34) Units/L ALT 25 (0-55) Units/L Alkaline Phosphatase 116 (38-126) Units/L Albumin 2.6 L (3.5-5.0) g/dL - ABG Interpretation ABG results: PT/INR, D-dimer PT 11.7 Seconds (9.4-12.1) 04/05/17 03:10 Consult Discharge Plan - Plan Referrals: Chilo Lewis Jr, MD [Non-Partnered Physician] - 04/20/17 11:00 am
--- NOTE | 2017-04-06 09:33 | Nephrology Progress Note ---
Date of Encounter: 04/06/17 Time of Encounter: 09:00 - Assessment and Plan (1) ESRD on dialysis Current Visit: Yes Status: Chronic Leukocytosis. Afebrile today. WBC 12.4. "Shivers" appear more as tremors, jerking. Question medication related. S/P cardiac arrest with anoxic brain injury. ESRD- NO HD today, keeping MWF schedule. Subjective Interval history: Laying in bed. Makes eye contact, few words. Noted tremors. Objective - Vital Signs Vital signs: Vital Signs Temp Pulse Resp BP Pulse Ox 04/06/17 07:57 98.7 F 86 18 159/80 96 04/06/17 07:53 86 04/06/17 07:40 16 94 04/06/17 06:47 98.7 F 87 18 157/80 91 04/06/17 03:37 98.3 F 96 20 134/86 94 04/06/17 00:28 91 04/06/17 00:11 98.3 F 77 20 142/82 95 04/05/17 23:56 16 96 04/05/17 21:10 104 04/05/17 20:14 94 04/05/17 20:10 19 94 04/05/17 19:29 98.2 F 92 20 151/75 94 04/05/17 16:52 20 92 04/05/17 15:49 98.7 F 96 20 129/80 92 04/05/17 15:00 96 04/05/17 14:15 97.6 F 18 141/83 04/05/17 13:40 91/67 04/05/17 13:25 108/58 04/05/17 13:10 127/92 04/05/17 12:55 114/75 04/05/17 12:40 140/78 04/05/17 12:25 132/67 04/05/17 12:10 129/70 04/05/17 11:55 125/74 04/05/17 11:40 154/88 04/05/17 11:25 150/83 04/05/17 11:10 147/86 04/05/17 10:55 137/79 04/05/17 10:40 98.3 F 19 150/78 Intake and Output 04/05/17 04/06/17 04/06/17 23:59 07:59 15:59 Intake Total 200 / 200 150 / 150 0 / 0 Balance 200 / 200 150 / 150 0 / 0 Intake: IV Fluids 100 / 100 Rocephin 1,000 MG In 100 / 100 Dextrose 5% (Minibag+) 100 ML 100 ML @ 200 mls/ hr IVPB DAILY [facility] Rx#: [id number] Oral 0 / 0 Free Water Intake Amount 100 / 100 150 / 150 Other: Meal npo npo Percent of Meal Consumed 0% 0% Weight 88.3 kg Blood Glucose* 107 119 Patient Weight 04/06/17 23:59 Weight 88.3 kg - General Appearance General appearance: Present: well-developed, well-nourished, appears started age EENT: Present: mucous membranes moist Neck: Present: no JVD Respiratory: Present: clear Cardiology: Present: no edema, irregular rhythm Gastrointestinal: Present: normoactive bowel sounds, no tenderness Integumentary: Present: warm and dry Psychiatric: Present: cooperative - Lab 04/06/17 06:16 04/06/17 06:16 Most recent lab results Calcium 9.8 mg/dL (8.6-10.8) 04/06/17 06:16 Phosphorus 2.2 mg/dL (2.3-4.7) L 04/05/17 03:10 Magnesium 1.8 mg/dL (1.6-2.6) 04/05/17 03:10 Consult Discharge Plan - Plan Referrals: Chilo Lewis Jr, MD [Non-Partnered Physician] - 04/20/17 11:00 am
[2017-04-06 10:01] LABS: Bilirubin,Urine Small (Negative); Blood,Urine Large (Negative); Clarity,Urine Turbid (Clear); Color,Urine Dark Yellow (Yellow); Glucose,Urine (UA) Normal (Normal); Ketones,Urine Negative (Negative); Leukocyte Esterase,Urine Large (Negative); Nitrite,Urine Negative (Negative); Protein,Urine >=300 mg/dL (Neg-Trace); Specific Gravity,Urine 1.018 (1.010-1.025); Urobilinogen,Urine Normal (Normal)
[2017-04-06 10:04] LABS: Bacteria,Urine None Seen per hpf (None-Few); Hyaline Casts,Urine None Seen per lpf (None-Few); RBC,Urine TNTC per hpf (0-3); Squamous Epithelial Cell,Urine None Seen per lpf (None-Few); WBC,Urine TNTC per hpf (0-3)
--- NOTE | 2017-04-06 13:25 | EEG/EMG/Oth Biometrics Report ---
EEG Procedure Report Date of procedure: 04/06/17 Procedure Note: Report: This EEG was acquired with standard international 10-20 electrode placement system with EKG recording. The background activity during this EEG was replaced by a mixture of theta and alpha activity with best frequency up to 7-8 Hz. The background activity was reactive to eye openings. Sleep stages were characterized by presence of vertex waves, K-complexes, sleep spindles. There are no electrographic seizures identified during this tracing. There are no epileptiform discharges and focal slowing noted during this recording. Photic stimulation produced no abnormalities. HV not performed during this study. EKG tracing showed no significant cardiac dysarrhythmia. Impression: This is an abnormal EEG due to presence of mild diffuse background slowing. Clinical Correlation: This EEG is consistent with mild diffuse cerebral dysfunction that can be seen in patients with encephalopathy, metabolic/toxic, electrolyte derangement, or other causes. Clinical correlation suggested.
--- NOTE | 2017-04-06 18:03 | Neurology - Consult Note ---
Date of Encounter: 04/06/17 Time of Encounter: 17:58 Assessment and Plan (1) Shivering Current Visit: Yes Status: Acute This is apparently an observed motor activity that can be non-specific in etiology and does not have much of localizing value and could certainly be secondary to encephaloapthy, fever, a type of provoked movement disorder such as dystonia. Patient was observed to have baseline tremors with dystonic features which could be complicated by his history of ESRD, where myoclonic jerking can be commonly seen. Since admission he has not had recurrent spells and now he is very drowsy but easily arousable. At this time would recommend continuing medical and supportive, Agree to minimize medications with sedating properties to reduce drowsiness. he does come with elevated WBC, source of possible infection unclear. he may have baseline benign tremors but due to presence of multiple medical conditions, no additional medications will be added at this time. Please continue medical and supportive care. History of Present Illness Chief complaint: tremors HPI: Mr. Hernandez is a 71 year old male with PMH significant for history of ESRD, history of anoxic brain injury who was sent here for further evaluation for shivering activity and altered mental status. This apparently occurred at the nursing facility and it was described as 'shivering all over' but he has not had any similar episodes since admission. Medical staff notices some tremors, mixed with jerky component to his fingers/hand without unilateral preference. At the time of this interview, the patient seems very drowsy and he could weak up briefly and drifts back to sleep easily. no prior history of seizure activity. Routine EEG showed mild background slowing. CT of head CT/CT head/brain wo con IMPRESSION: Limited study with grossly stable small vessel chronic ischemic changes. There is no definite acute hemorrhage or evidence to suggest acute ischemia. Past Med Surg Social Fam HX - Past Medical History Medical history: aortic aneurysm, diabetes, dialysis, hyperlipidemia, hypertension, myocardial infarction, renal disease, other Psychiatric history: anxiety, depression - Past Surgical History Surgical History: angioplasty/stent, cholecystectomy, other - Social History Smoking Status: Smoker, status unknown Smokeless Tobacco Status: No Alcohol use: unknown Drug use: unknown - Family History Mother Hx Family Cardiac Disorders: Yes (HTN) Father Adopted: No Living Status: Hx Family Cardiac Disorders: Yes (HTN) Hx Family Respiratory Disorders: No Hx Family Cancer: Yes Hx Family GI Disorders: No Hx Family Endocrine Disorder: No Hx Family Neuromuscular Disorders: No Hx Family Neurologic Disorders: No Hx Family HEENT Disorders: No Hx Family Autoimmune Disorders: No Medications and Allergies Budesonide/Formoterol 160/4.5 [Symbicort 160/4.5] 2 puff IH BIDR 09/22/16 [ History] Aspirin 81 mg PO DAILY #0 tab.chew 09/28/16 [Rx] Darbepoetin [Aranesp] 100 mcg SQ QWEEK #0 syringe 03/07/17 [Rx] Heparin 5,000 unit SQ Q8H #0 vial 03/07/17 [Rx] Ipratropium/Albuterol Neb [Duoneb] 3 ml IH [id number] #0 inhsol 03/07/17 [Rx] Metoprolol [Lopressor] 75 mg PO BID 04/05/17 [History] Quetiapine Fumarate [SEROquel] 25 mg PO BID 04/05/17 [History] Quetiapine Fumarate [Seroquel] 50 mg PO HS 04/05/17 [History] Allergies iodine Allergy (Verified 02/26/17 11:13) Rash rofecoxib [From Vioxx] Allergy (Verified 02/21/17 06:52) Swelling of Lip/Tongue/Throat All Systems: A 10-system review of systems was performed and is negative for pertinent findings except as documented above in the HPI. Physical Examination - Vital Signs Vital Signs: Initial Vital Signs Temp Pulse Resp BP Pulse Ox 98.5 F 95 20 150/89 95 04/05/17 02:46 04/05/17 02:46 04/05/17 02:46 04/05/17 02:46 04/05/17 02:46 - Constitutional General appearance: other (Difficult to assess due to drowsiness) - Neurologic Sensorimotor examination: other (Able to move all extremities. Unable to assess tremors due to drowsiness. ) Detailed motor examination: other (No gross focal weakess noted) Detailed sensory examination: other (Unable to assess due to drowsiness) Posture: other (None) Reflexes: Biceps: 1+, Triceps: 1+, Brachioradialis: 1+, Patella: 1+, Achilles: 1 + Mental Status Examination: drowsy (Patient opens eyes to verbal commends, but drifts back to sleep quickly. has to keep asking him to remain alert), lethargic , opens eyes to voice, opens eyes to noxious stimulation, answers questions by nodding yes or no Cranial nerve examination: PERRL, EOMI, visual friedman intact, corneal reflexes brisk symmetrically, sensory to face intact, mastication intact, no facial asymmetry is present Results - Laboratory Findings CBC and BMP: 04/06/17 06:16 04/06/17 06:16 Abnormal lab findings: Abnormal lab results WBC 12.4 K/mcL (4.3-11.1) H 04/06/17 06:16 RBC 3.14 M/mcL (4.19-5.50) L 04/06/17 06:16 Hgb 9.0 g/dL (12.9-16.9) L 04/06/17 06:16 Hct 29.1 % (37.5-50.1) L 04/06/17 06:16 MCHC 30.9 g/dL (31.6-35.5) L 04/06/17 06:16 RDW 17.7 % (11.5-14.5) H 04/06/17 06:16 Chloride 96 mEq/L (98-109) L 04/06/17 06:16 Carbon Dioxide 32 mEq/L (19-29) H 04/06/17 06:16 BUN 36 mg/dL (8-26) H D 04/06/17 06:16 Creatinine 3.83 mg/dL (0.72-1.25) H 04/06/17 06:16 Est GFR ( Amer) 19 (> 60) L 04/06/17 06:16 Est GFR (Non-Af Amer) 16 (> 60) L 04/06/17 06:16 Glucose 113 mg/dL (70-99) H 04/06/17 06:16 Phosphorus 2.2 mg/dL (2.3-4.7) L 04/05/17 03:10 Troponin I 0.11 ng/mL (0-0.03) H* 04/05/17 13:48 B-Natriuretic Peptide 2579 pg/mL (0-100) H 04/05/17 03:10 Albumin 2.6 g/dL (3.5-5.0) L 04/06/17 06:16 Globulin 5.6 g/dL (2.4-3.5) H 04/06/17 06:16 Albumin/Globulin Ratio 0.5 (1.1-2.2) L 04/06/17 06:16 Urine Clarity Turbid (Clear) A 04/06/17 09:50 Urine Protein >=300 mg/dL (Neg-Trace) H 04/06/17 09:50 Urine Blood Large (Negative) H 04/06/17 09:50 Urine Bilirubin Small (Negative) H 04/06/17 09:50 Ur Leukocyte Esterase Large (Negative) H 04/06/17 09:50 Urine Microscopic RBC TNTC per hpf (0-3) H 04/06/17 09:50 Urine Microscopic WBC TNTC per hpf (0-3) H 04/06/17 09:50 Ur Culture Indicated? YES (NO) A 04/06/17 09:50 Consult Discharge Plan - Plan Referrals: Chilo Lewis Jr, MD [Non-Partnered Physician] - 04/20/17 11:00 am
[2017-04-07] MEDS: Ipratropium/Albuterol Neb 3 ML IH SCH ×6 (04:05→23:22)
[2017-04-07 04:34] LABS: Basophils % 0.3 %; Eosinophils # 0.5 K/mcL (0.0-0.6); Eosinophils % 3.7 %; Hemoglobin 8.3 g/dL (12.9-16.9); Immature Granulocytes % 1.7 % (0-4); Lymphocytes # 2.6 K/mcL (0.6-4.6); Lymphocytes % 20.7 %; Mean Corpuscular HGB Conc 30.7 g/dL (31.6-35.5); Mean Corpuscular Hemoglobin 28.2 pg (28.0-33.3); Mean Corpuscular Volume 91.8 fL (83.0-100.0); Mean Platelet Volume 10.9 fL (9.4-12.4); Monocytes # 0.9 K/mcL (0.0-1.3); Monocytes % 6.9 %; Neutrophils # 8.4 K/mcL (1.6-8.9); Platelet Count 247 K/mcL (140-400); Red Blood Count 2.94 M/mcL (4.19-5.50); Red Cell Distribution Width 17.2 % (11.5-14.5); Segmented Neutrophils % 66.7 %
[2017-04-07 04:50] LABS: Calcium 9.8 mg/dL (8.6-10.8); Potassium 4.4 mEq/L (3.5-4.5)
[2017-04-07] MEDS: *HR* Heparin 5,000 UNIT/ML VIAL SQ SCH ×3 (06:23→21:32)
[2017-04-07] MEDS: Budesonide/Formoterol 160/4.5 MDI IH SCH ×2 (07:41→20:08)
[2017-04-07] MEDS: Insulin LISPRO 300 UNITS/3 ML VIAL SQ SCH ×3 (08:42→19:21)
[2017-04-07] MEDS: Aspirin 81 MG TAB.CHEW PO SCH (08:50)
[2017-04-07] MEDS: amLODIPine 5 MG TABLET PO SCH (08:50)
[2017-04-07] MEDS ORDERED: 0.9 % Sodium Chloride 250 ML IVC PRN (09:24)
--- NOTE | 2017-04-07 09:25 | Nephrology Progress Note ---
Date of Encounter: 04/07/17 Time of Encounter: 09:10 - Assessment and Plan (1) ESRD on dialysis Current Visit: Yes Status: Chronic Leukocytosis. Afebrile today. WBC 12.4. "Shivers" appear more as tremors, jerking. Question medication related. S/P cardiac arrest with anoxic brain injury. Neuro on board. Did not have myoclonic movements prior to cardiac arrest and do not feel ESRD related. ESRD- HD today, keeping MWF schedule, orders given. Subjective Interval history: Laying in bed. watching tv. Very alert, speaks clearly though does not know where he is. No tremors noted. Objective - Vital Signs Vital signs: Vital Signs Temp Pulse Resp BP Pulse Ox 04/07/17 09:12 99 04/07/17 07:41 18 96 04/07/17 07:34 98.8 F 87 20 145/78 96 04/07/17 04:05 16 90 04/07/17 03:33 98.4 F 83 16 144/78 100 04/06/17 23:59 97.5 F L 85 16 143/66 96 04/06/17 20:57 98.5 F 97 16 139/69 94 04/06/17 17:00 87 04/06/17 16:36 97.8 F 97 15 156/93 100 04/06/17 12:00 73 04/06/17 11:45 74 04/06/17 11:00 98 F 74 17 142/80 96 Intake and Output 04/06/17 04/07/17 04/07/17 23:59 07:59 15:59 Intake Total 250 / 250 250 / 250 125 / 125 Output Total 150 / 150 Balance 250 / 250 100 / 100 125 / 125 Intake: Oral 0 / 0 0 / 0 Free Water Intake Amount 250 / 250 250 / 250 125 / 125 Output: Catheter 150 / 150 Other: Stool Size Smear Stool Consistency soft Stool Color Brown Blood Glucose* 93 116 - General Appearance General appearance: Present: well-developed, well-nourished, appears started age , obese EENT: Present: mucous membranes moist Neck: Present: no JVD Respiratory: Present: clear Cardiology: Present: no edema, irregular rhythm Gastrointestinal: Present: normoactive bowel sounds, no tenderness Integumentary: Present: warm and dry Psychiatric: Present: cooperative - Lab 04/07/17 03:12 04/07/17 03:12 Most recent lab results Calcium 9.8 mg/dL (8.6-10.8) 04/07/17 03:12 Phosphorus 2.2 mg/dL (2.3-4.7) L 04/05/17 03:10 Magnesium 1.8 mg/dL (1.6-2.6) 04/05/17 03:10 Consult Discharge Plan - Plan Referrals: Chilo Lewis Jr, MD [Non-Partnered Physician] - 04/20/17 11:00 am
[2017-04-07] MEDS ORDERED: 0.9 % Sodium Chloride 1,000 ML PRIME SCH (10:00)
[2017-04-07] MEDS ORDERED: 0.9 % Sodium Chloride 1,000 ML ONE (14:53)
--- NOTE | 2017-04-07 15:22 | Neurology Progress Note ---
Date of Encounter: 04/07/17 Time of Encounter: 15:20 Assessment and Plan (1) Shivering Current Visit: Yes Status: Acute Patient has no more tremors since admission, mental status significantly improved. Etiology of tremors unclear but likely related to type of encephalopathy. patient is improving significant and will recommend continuing medical and supportive care. Will sign off at this time, please call if any questions Subjective Principal diagnosis: tremors Interval history: Patient seen and examined. Patient is doing better, more alert and i saw no tremors or jerking at present time. Denies significant discomforts Objective - Constitutional Vitals: Temp Pulse Resp BP Pulse Ox 97.9 F 85 18 103/58 97 04/07/17 14:00 04/07/17 14:24 04/07/17 14:24 04/07/17 14:24 04/07/17 14:24 - Neurological Exam Sensorimotor examination: Present: other (Grossly intact) Motor Examination: Present: grossly full strength in all extremities (Moves all extremities, no drift, no tremors. No jerks, no asterixis), other (No gross focal weakess noted) Sensation intact: Present: other (Grossly intact) Posture: Present: other (None) Reflex and gait examination: other (Gait not tested) Reflexes: Biceps: 1+, Triceps: 1+, Brachioradialis: 1+, Patella: 1+, Achilles: 1 + Mental Status Examination: Present: awake, alert, oriented to person, oriented to place, oriented to time, lethargic, opens eyes to voice, opens eyes to noxious stimulation, makes eye contact, follows simple commands, answers questions by nodding yes or no Cranial nerve examination: Present: PERRL, EOMI, visual friedman intact, corneal reflexes brisk symmetrically, sensory to face intact, mastication intact, no facial asymmetry is present, no dysarthria, hearing is intact symmetrically, soft palate elevates bilaterally upon phonation, gag reflex intact, flexes SCM and trapezius muscles symmetrically with full power, tongue protrudes midline Results - Laboratory Findings CBC and BMP: 04/07/17 03:12 04/07/17 03:12 Abnormal lab findings: Abnormal lab results WBC 12.6 K/mcL (4.3-11.1) H 04/07/17 03:12 RBC 2.94 M/mcL (4.19-5.50) L 04/07/17 03:12 Hgb 8.3 g/dL (12.9-16.9) L 04/07/17 03:12 Hct 27.0 % (37.5-50.1) L 04/07/17 03:12 MCHC 30.7 g/dL (31.6-35.5) L 04/07/17 03:12 RDW 17.2 % (11.5-14.5) H 04/07/17 03:12 Chloride 94 mEq/L (98-109) L 04/07/17 03:12 Carbon Dioxide 33 mEq/L (19-29) H 04/07/17 03:12 BUN 54 mg/dL (8-26) H D 04/07/17 03:12 Creatinine 5.06 mg/dL (0.72-1.25) H 04/07/17 03:12 Est GFR ( Amer) 14 (> 60) L 04/07/17 03:12 Est GFR (Non-Af Amer) 11 (> 60) L 04/07/17 03:12 Glucose 102 mg/dL (70-99) H 04/07/17 03:12 POC Glucose 124 (58-89) H 04/07/17 13:36 Calculated Osmolality 303 (280-300) H 04/07/17 03:12 Phosphorus 2.2 mg/dL (2.3-4.7) L 04/05/17 03:10 Troponin I 0.11 ng/mL (0-0.03) H* 04/05/17 13:48 B-Natriuretic Peptide 2579 pg/mL (0-100) H 04/05/17 03:10 Albumin 2.6 g/dL (3.5-5.0) L 04/06/17 06:16 Globulin 5.6 g/dL (2.4-3.5) H 04/06/17 06:16 Albumin/Globulin Ratio 0.5 (1.1-2.2) L 04/06/17 06:16 Urine Clarity Turbid (Clear) A 04/06/17 09:50 Urine Protein >=300 mg/dL (Neg-Trace) H 04/06/17 09:50 Urine Blood Large (Negative) H 04/06/17 09:50 Urine Bilirubin Small (Negative) H 04/06/17 09:50 Ur Leukocyte Esterase Large (Negative) H 04/06/17 09:50 Urine Microscopic RBC TNTC per hpf (0-3) H 04/06/17 09:50 Urine Microscopic WBC TNTC per hpf (0-3) H 04/06/17 09:50 Ur Culture Indicated? YES (NO) A 04/06/17 09:50 Consult Discharge Plan - Plan Referrals: Chilo Lewis Jr, MD [Non-Partnered Physician] - 04/20/17 11:00 am Prescriptions: cephALEXin [Keflex] 250 mg PO BID #10 capsule
--- NOTE | 2017-04-07 15:26 | Discharge Summary ---
Date of Encounter: 04/07/17 Time of Encounter: 15:20 - Discharge Diagnosis (1) SIRS (systemic inflammatory response syndrome) Priority: Primary Status: Acute (2) Leukocytosis Priority: Primary Status: Acute Qualifiers: Qualified Code(s): D72.829 - Elevated white blood cell count, unspecified (3) Resting tremor Priority: Primary Status: Acute (4) Anoxic brain injury Priority: Secondary Status: Acute (5) ESRD on dialysis Priority: Secondary Status: Chronic (6) Diabetes Priority: Secondary Status: Chronic Qualifiers: Qualified Code(s): E11.29 - Type 2 diabetes mellitus with other diabetic kidney complication (7) History of bacteremia Priority: Secondary Status: Acute (8) Hypertension Priority: Secondary Status: Chronic Qualifiers: Qualified Code(s): I10 - Essential (primary) hypertension - Discharge Medications Prescriptions: cephALEXin [Keflex] 250 mg PO BID #10 capsule Home Medications: Budesonide/Formoterol 160/4.5 [Symbicort 160/4.5] 2 puff IH BIDR 09/22/16 [ History] Aspirin 81 mg PO DAILY #0 tab.chew 09/28/16 [Rx] Darbepoetin [Aranesp] 100 mcg SQ QWEEK #0 syringe 03/07/17 [Rx] Heparin 5,000 unit SQ Q8H #0 vial 03/07/17 [Rx] Ipratropium/Albuterol Neb [Duoneb] 3 ml IH [id number] #0 inhsol 03/07/17 [Rx] Quetiapine Fumarate [Seroquel] 50 mg PO HS 04/05/17 [History] Cinacalcet [Sensipar] 30 mg PO DAILY tab 04/07/17 [Rx] Metoprolol [Lopressor] 25 mg PO BID #0 04/07/17 [Rx] Omeprazole [PriLOSEC] 40 mg PO DAILY@0630 04/07/17 [Rx] cephALEXin [Keflex] 250 mg PO BID #10 capsule 04/07/17 [Rx] Allergies/Adverse Reactions: Allergies iodine Allergy (Verified 02/26/17 11:13) Rash rofecoxib [From Vioxx] Allergy (Verified 02/21/17 06:52) Swelling of Lip/Tongue/Throat Date of admission: 04/05/17 04:54 Primary care physician: Fabian Carney MD Consults: 04/05/17 05:15 Consult to Physician [CONS] Routine Consulting Provider: Evans Del Toro Reason for Consult: ESRD Call Completed: No 04/05/17 05:16 Consult to Occupational Therapy [CONS] Routine Comment: Evaluate, develop and implement POC Reason for Consult: Deconditioning Consult to Physical Therapy [CONS] Routine Comment: Evaluate, develop and implement POC Reason for Consult: Deconditioning Consult to Professor Of Historical Theology [CONS] Routine Reason for SW Consult: Return to LTAC 04/05/17 09:30 Consult to Dialysis [CONS] ONCE 04/05/17 10:42 Consult to Nutrition [CONS] Routine Comment: Consulting Provider: NUTRITION Reason for Dietary Consult: TF Start and Manage 04/05/17 17:09 Consult to Neurology [CONS] Routine Consulting Provider: Neurology [facility] Reason for Consult: Resting tremors Call Completed: Yes 04/06/17 11:02 Consult to Interpret Exam [CONS] Routine Consulting Provider: Richie Johnson Consult to Interpret Exam: Interpret EEG 04/07/17 09:30 Consult to Dialysis [CONS] ONCE - Patient Status Disposition: Transfer SNF Condition: Fair Overall status at discharge: patient is back to baseline - Discharge Instructions Follow Up With: Chilo Lewis Jr, MD [Non-Partnered Physician] - 04/20/17 11:00 am Additional Instructions: Need to f/u with PCP in one week Need to f/u with Neurology Dr. JOHNSON / Dr. Ramirez in 1-2 weeks Go for HD as scheduled M/W/F - Diet and Activity Activity: as per physical therapy Diet: low salt diet Hospital course: Mr. Hernandez is a 71 year old male with past medical history of ESRD on hemodialysis, recent admission for Klebsiella bacteremia during which he suffered a cardiac arrest and was successfully resuscitated. Now he was sent to our ER from [facility] for evaluation of shivering. The patient suffers with anoxic brain injury and cannot provide any meaningful history. He answers simple questions appropriately, responds to greeting and follows simple commands. Pt was admitted here for SIRS with unclear source of infection, and twitching in RUE and resting tremors. He was started on empirical abx with Rocpehin, his WBC came down to 12.5, he remained afebrile more than 48hrs. We did blood cx, which were no growth in 2 days, sent for urine cx - which came back as no growth. Even though his CXr did not show any acute infiltrates, given his high risk for aspiration and recent pneumonia, we decided give him PO Abx for questionable pneumonia. I consulted neurologist regarding his tremors, also did EEG. EEG came back as consistent with mild diffuse cerebral dysfunction that can be seen in patients with encephalopathy, metabolic/toxic, electrolyte derangement, or other causes. Clinical correlation suggested. Spoke to Neurologist Dr. Johnson, who suggested his tremors could be due to his anoxic brain injury, however since he was on high dose of seroquel and seems to be he is drowsy at times, so recommend to stop day time seroquel and continue bed time dose only. Today pt is more alert, awake and oriented, following all the commands, able to answer most of the questions in one word answers. spoke to pt' s son over the ph and updated him about the current care. - Time Spent with Patient Total time spent providing and/or coordinating discharge services: - Constitutional Vitals: Temp Pulse Resp BP Pulse Ox 97.9 F 85 18 103/58 97 04/07/17 14:00 04/07/17 14:24 04/07/17 14:24 04/07/17 14:24 04/07/17 14:24 General appearance: Present: A&O X 1, no acute distress (Currently continuously shivering to involve both upper extremities), answers questions appropriately ( Answers basic questions) - Head Head exam: Present: atraumatic, normal inspection - Respiratory Respiratory exam: Present: decreased breath sounds, wheezes. Absent: rales, respiratory distress, rhonchi - Cardiovascular Cardiovascular exam: Present: RRR, +S1, +S2. Absent: systolic murmur - GI/Abdominal GI/Abdominal exam: Present: normal bowel sounds, soft. Absent: rebound, rigid, tenderness - Extremities Exam Extremities exam: Absent: calf tenderness, tenderness - Neurological Exam Neurological exam: Present: alert, oriented X3 Additional comments: improved twitching and tremors
--- NOTE | 2017-04-07 15:30 | Physician Discharge Referral ---
ExtendedCare Referral Info Transfer To: ECF Provider in Charge after Transfer: PCP Institutional Level of Care: Skilled - Diagnosis (1) SIRS (systemic inflammatory response syndrome) Status: Acute (2) Leukocytosis Status: Acute (3) Resting tremor Status: Acute (4) Anoxic brain injury Status: Acute (5) ESRD on dialysis Status: Chronic (6) Diabetes Status: Chronic (7) History of bacteremia Status: Acute (8) Hypertension Status: Chronic - Transfer Medications Prescriptions: cephALEXin [Keflex] 250 mg PO BID #10 capsule Home Medications: Budesonide/Formoterol 160/4.5 [Symbicort 160/4.5] 2 puff IH BIDR 09/22/16 [ History] Aspirin 81 mg PO DAILY #0 tab.chew 09/28/16 [Rx] Darbepoetin [Aranesp] 100 mcg SQ QWEEK #0 syringe 03/07/17 [Rx] Heparin 5,000 unit SQ Q8H #0 vial 03/07/17 [Rx] Ipratropium/Albuterol Neb [Duoneb] 3 ml IH [id number] #0 inhsol 03/07/17 [Rx] Quetiapine Fumarate [Seroquel] 50 mg PO HS 04/05/17 [History] Cinacalcet [Sensipar] 30 mg PO DAILY tab 04/07/17 [Rx] Metoprolol [Lopressor] 25 mg PO BID #0 04/07/17 [Rx] Omeprazole [PriLOSEC] 40 mg PO DAILY@0630 04/07/17 [Rx] cephALEXin [Keflex] 250 mg PO BID #10 capsule 04/07/17 [Rx] Allergies/Adverse Reactions: Allergies iodine Allergy (Verified 02/26/17 11:13) Rash rofecoxib [From Vioxx] Allergy (Verified 02/21/17 06:52) Swelling of Lip/Tongue/Throat - Respiratory Orders Smoking Cessation: Smoking cessation has been advised. For more information, call the [employer] Tobacco Quit Line at 5-278-OTDKNOW. CERTIFICATION: I certify that the transfer of the above named patient to an Extended Care Facility is necessary for the continuing treatment of the diagnosis listed. The above information is true and accurate reflection of patient's current condition. Confidential - Redisclosure prohibited without a patient's written consent.
[2017-04-08] MEDS: Ipratropium/Albuterol Neb 3 ML IH SCH ×6 (03:29→23:38)
[2017-04-08] MEDS: *HR* Heparin 5,000 UNIT/ML VIAL SQ SCH (04:20)
[2017-04-08] MEDS: Insulin LISPRO 300 UNITS/3 ML VIAL SQ SCH ×3 (07:47→17:18)
[2017-04-08] MEDS: Budesonide/Formoterol 160/4.5 MDI IH SCH ×2 (07:51→19:56)
--- NOTE | 2017-04-08 07:59 | Nephrology Progress Note ---
Date of Encounter: 04/08/17 Time of Encounter: 07:50 - Assessment and Plan (1) ESRD on dialysis Current Visit: Yes Status: Chronic Leukocytosis. "Shivers" appear more as tremors, jerking. Question medication related. S/P cardiac arrest with anoxic brain injury. Neuro on board. Did not have myoclonic movements prior to cardiac arrest and do not feel ESRD related. ESRD- No HD today, keeping MWF schedule. Subjective Principal diagnosis: tremors Interval history: Laying in bed. watching tv. Very alert, speaks clearly though does not know where he is. No tremors noted. Objective - Vital Signs Vital signs: Vital Signs Temp Pulse Resp BP Pulse Ox 04/08/17 07:39 98.5 F 84 18 146/75 96 04/08/17 03:29 17 98 04/08/17 03:00 98.2 F 88 18 93/58 93 04/07/17 23:22 16 97 04/07/17 22:50 98.4 F 79 17 109/62 96 04/07/17 20:07 16 94 04/07/17 18:54 98.6 F 93 19 131/77 96 04/07/17 16:34 18 96 04/07/17 16:06 98.4 F 82 18 132/67 93 04/07/17 14:24 85 18 103/58 97 04/07/17 14:00 97.9 F 18 112/60 04/07/17 13:35 98/60 04/07/17 13:20 103/62 04/07/17 13:05 104/64 04/07/17 12:50 120/68 04/07/17 12:35 122/71 04/07/17 12:20 140/74 04/07/17 12:05 141/82 04/07/17 11:50 143/80 04/07/17 11:35 130/68 04/07/17 11:20 129/74 04/07/17 11:05 137/85 04/07/17 10:50 149/75 04/07/17 10:35 97.7 F 18 169/88 04/07/17 09:12 99 Intake and Output 04/07/17 04/07/17 04/08/17 15:59 23:59 07:59 Intake Total 1974 125 / 125 125 / 125 Output Total 6600 / 6600 Balance -4625 / -4625 125 / 125 125 / 125 Intake: Oral 0 / 0 Tube Feeding 1000 / 1000 Free Water 125 / 125 Intake, Rinseback and 600 / 600 Flushes Free Water Intake Amount 250 / 250 125 / 125 125 / 125 Output: Urine 0 / 0 Total Dialysis (HD) 3600 / 3600 Output Total Dialysis Output 3000 / 3000 Other: Weight 88.5 kg Blood Glucose* 124 110 128 Hemodialysis Net Fluid 3000 Removed (mL) Patient Weight 04/08/17 23:59 Weight 88.5 kg - General Appearance General appearance: Present: well-developed, well-nourished, appears started age EENT: Present: mucous membranes moist Neck: Present: no JVD Respiratory: Present: clear Cardiology: Present: no edema, irregular rhythm Gastrointestinal: Present: normoactive bowel sounds, no tenderness Integumentary: Present: warm and dry Psychiatric: Present: cooperative - Lab 04/07/17 03:12 04/07/17 03:12 Most recent lab results Calcium 9.8 mg/dL (8.6-10.8) 04/07/17 03:12 Phosphorus 2.2 mg/dL (2.3-4.7) L 04/05/17 03:10 Magnesium 1.8 mg/dL (1.6-2.6) 04/05/17 03:10 Consult Discharge Plan - Plan Additional Instructions: Need to f/u with PCP in one week Need to f/u with Neurology Dr. GEORGE / Dr. Ramirez in 1-2 weeks Go for HD as scheduled M/W/F Referrals: Chilo Lewis Jr, MD [Non-Partnered Physician] - 04/20/17 11:00 am Prescriptions: cephALEXin [Keflex] 250 mg PO BID #10 capsule
[2017-04-08] MEDS: amLODIPine 5 MG TABLET PO SCH (08:42)
[2017-04-08] MEDS: Aspirin 81 MG TAB.CHEW PO SCH (08:42)
--- NOTE | 2017-04-08 11:54 | Pulmonology Consult Note ---
Date of Encounter: 04/08/17 Time of Encounter: 11:54 Assessment and Plan (1) Hemoptysis Current Visit: Yes Status: Acute This is a 71-year-old gentleman with a past medical history of ESRD CHF COPD recent cardiac arrest with resultant anoxic brain injury who pulmonary was consulted for possibility of hemoptysis. When I evaluated the patient is clearly displaying evidence of epistaxis especially from the right nares and certainly aspirated blood from upper airway will need to be excluded prior to evaluating for a primary pulmonary source. Chest x-ray is also unremarkable for acute process. No significant increase in O2 requirement Recs: -Recommend formal ENT evaluation and/or nasal packing. If hemoptysis persists despite evaluation or no clear evidence of epistaxis can be found then likely proceed with bronchoscopy -Hold tube feedings now -Recommend CBC and coags -No clear source of infection defer to Primary Medicine service for antimicrobial administration -Consider DDAVP administration if persistent bleeding given ESRD -Mechanical DVT prophylaxis. -Cont MDIs for COPD. I discussed my recommendation strictly with the nursing staff and the primary hospitalist Dr Ya (2) Epistaxis Current Visit: Yes Status: Acute (3) COPD (chronic obstructive pulmonary disease) Current Visit: No Status: Chronic Qualifiers: COPD type: unspecified COPD Qualified Code(s): J44.9 - Chronic obstructive pulmonary disease, unspecified (4) SIRS (systemic inflammatory response syndrome) Current Visit: Yes Status: Acute History of Present Illness Consult date: 04/08/17 Requesting physician: Teresita Ya Reason for consult: other (Hemoptysis ) Chief complaint: Nose Bleed History of present illness: 21-year-old gentleman with a past medical history of diabetes ESRD CHF COPD recent hospitalization where he unfortunately under went cardiac arrest and suffered anoxic brain injury he actually survived overall event fairly well and was able be discharged to a half-way facility he was admitted back here to the hospital for concern of sepsis he had an elevated white count and low- grade temp and was shivering no clear source of infection was determined although he was given empiric antimicrobials with Rocephin he is done relatively well was evaluated by neurology for tremors and plan was for discharge back to skilled nurse facility today however he had a couple episodes of coughing up blood and pulmonary was consulted for further evaluation of this. As mentioned patient does suffer from anoxic brain injury and so he is unable to provide complete medical history is not able to tell me that he feels okay right now he does not any complaint he his able to give simple greetings and answer simple questions Past Med Surg Social Fam HX - Past Medical History Medical history: aortic aneurysm, diabetes, dialysis, hyperlipidemia, hypertension, myocardial infarction, renal disease, other Psychiatric history: anxiety, depression - Past Surgical History Surgical History: angioplasty/stent, cholecystectomy, other - Social History Smoking Status: Smoker, status unknown Smokeless Tobacco Status: No Alcohol use: unknown Drug use: unknown - Family History Mother Hx Family Cardiac Disorders: Yes (HTN) Father Adopted: No Living Status: Hx Family Cardiac Disorders: Yes (HTN) Hx Family Respiratory Disorders: No Hx Family Cancer: Yes Hx Family GI Disorders: No Hx Family Endocrine Disorder: No Hx Family Neuromuscular Disorders: No Hx Family Neurologic Disorders: No Hx Family HEENT Disorders: No Hx Family Autoimmune Disorders: No Medications and Allergies Budesonide/Formoterol 160/4.5 [Symbicort 160/4.5] 2 puff IH BIDR 09/22/16 [ History] Aspirin 81 mg PO DAILY #0 tab.chew 09/28/16 [Rx] Darbepoetin [Aranesp] 100 mcg SQ QWEEK #0 syringe 03/07/17 [Rx] Heparin 5,000 unit SQ Q8H #0 vial 03/07/17 [Rx] Ipratropium/Albuterol Neb [Duoneb] 3 ml IH [id number] #0 inhsol 03/07/17 [Rx] Quetiapine Fumarate [Seroquel] 50 mg PO HS 04/05/17 [History] Cinacalcet [Sensipar] 30 mg PO DAILY tab 04/07/17 [Rx] Metoprolol [Lopressor] 25 mg PO BID #0 04/07/17 [Rx] Omeprazole [PriLOSEC] 40 mg PO DAILY@0630 04/07/17 [Rx] cephALEXin [Keflex] 250 mg PO BID #10 capsule 04/07/17 [Rx] Allergies iodine Allergy (Verified 02/26/17 11:13) Rash rofecoxib [From Vioxx] Allergy (Verified 02/21/17 06:52) Swelling of Lip/Tongue/Throat All Systems: A 10-system review of systems was performed and is negative for pertinent findings except as documented above in the HPI. Physical Examination Vital Signs: Vital Signs, Last 4 Hours Temp Pulse Resp BP Pulse Ox 04/08/17 10:58 97.6 F 96 14 130/69 96 General appearance: no acute distress ENT: epistaxis Auscultation: bilateral: rales (Otherwise clear lung friedman) Cardiovascular: regular rate and rhythm Gastrointestinal: normoactive bowel sounds Extremities: no cyanosis, no edema, no clubbing, pink and warm other (He is awake and alert able to follow simple commands) Results - Laboratory Findings CBC and BMP: 04/07/17 03:12 04/07/17 03:12 PT/INR, D-dimer PT 11.7 Seconds (9.4-12.1) 04/05/17 03:10 Abnormal lab findings: Abnormal lab results WBC 12.6 K/mcL (4.3-11.1) H 04/07/17 03:12 RBC 2.94 M/mcL (4.19-5.50) L 04/07/17 03:12 Hgb 8.3 g/dL (12.9-16.9) L 04/07/17 03:12 Hct 27.0 % (37.5-50.1) L 04/07/17 03:12 MCHC 30.7 g/dL (31.6-35.5) L 04/07/17 03:12 RDW 17.2 % (11.5-14.5) H 04/07/17 03:12 Chloride 94 mEq/L (98-109) L 04/07/17 03:12 Carbon Dioxide 33 mEq/L (19-29) H 04/07/17 03:12 BUN 54 mg/dL (8-26) H D 04/07/17 03:12 Creatinine 5.06 mg/dL (0.72-1.25) H 04/07/17 03:12 Est GFR ( Amer) 14 (> 60) L 04/07/17 03:12 Est GFR (Non-Af Amer) 11 (> 60) L 04/07/17 03:12 Glucose 102 mg/dL (70-99) H 04/07/17 03:12 POC Glucose 128 (58-89) H 04/08/17 07:46 Calculated Osmolality 303 (280-300) H 04/07/17 03:12 Phosphorus 2.2 mg/dL (2.3-4.7) L 04/05/17 03:10 Troponin I 0.11 ng/mL (0-0.03) H* 04/05/17 13:48 B-Natriuretic Peptide 2579 pg/mL (0-100) H 04/05/17 03:10 Albumin 2.6 g/dL (3.5-5.0) L 04/06/17 06:16 Globulin 5.6 g/dL (2.4-3.5) H 04/06/17 06:16 Albumin/Globulin Ratio 0.5 (1.1-2.2) L 04/06/17 06:16 Urine Clarity Turbid (Clear) A 04/06/17 09:50 Urine Protein >=300 mg/dL (Neg-Trace) H 04/06/17 09:50 Urine Blood Large (Negative) H 04/06/17 09:50 Urine Bilirubin Small (Negative) H 04/06/17 09:50 Ur Leukocyte Esterase Large (Negative) H 04/06/17 09:50 Urine Microscopic RBC TNTC per hpf (0-3) H 04/06/17 09:50 Urine Microscopic WBC TNTC per hpf (0-3) H 04/06/17 09:50 Ur Culture Indicated? YES (NO) A 04/06/17 09:50 - Microbiology Findings Microbiology Findings: Microbiology, Last 48 Hours 04/06/17 09:50 Urine Culture - Final Urine,Clean Catch No growth. - Diagnostic Findings Chest x-ray: report reviewed, image reviewed - Clinical Findings Intake & Output: Intake & Output 04/07/17 04/08/17 04/08/17 23:59 07:59 15:59 Intake Total 125 / 125 125 / 125 1200 / 1200 Output Total 0 / 0 Balance 125 / 125 125 / 125 1200 / 1200 Weight 88.5 kg Consult Discharge Plan - Plan Additional Instructions: Need to f/u with PCP in one week Need to f/u with Neurology Dr. GEORGE / Dr. Ramirez in 1-2 weeks Go for HD as scheduled M/W/F Referrals: Chilo Lewis Jr, MD [Non-Partnered Physician] - 04/20/17 11:00 am Prescriptions: cephALEXin [Keflex] 250 mg PO BID #10 capsule
--- NOTE | 2017-04-08 11:57 | Internal Med Progress Note ---
Date of Encounter: 04/08/17 Time of Encounter: 11:55 - Assessment and plan (1) Hemoptysis Current Visit: No Status: Acute Assessment and plan: Unclear etiology Could be due to underline PNA Reviewed CXR - did not show any new infiltrates Cont close monitoring Q8hr Hb / Hct Consulted Pulmonary Will defer Pulmonary regarding further imaging cont empirical abx - Rocephin Patient does need to stay in the hospital more than 2 midnights due to his complex medical problems. So we will change him to full admission today. I did review my colleague Dr. Prasad H & P including HPI, PMH, PSH, FH, SH, and ROS no changes noticed (2) SIRS (systemic inflammatory response syndrome) Current Visit: Yes Status: Acute Assessment and plan: Pt did meet SIRS criteria with elevated WBC and Fever T max 100.4 No clear source of inf WBC started trending down CXR - negative urine cx - no growth Cont him on Rocephin 1gm IV daily as prophylactic for now Blood cx so far no growth (3) Leukocytosis Current Visit: Yes Status: Acute Qualifiers: Leukocytosis type: unspecified Qualified Code(s): D72.829 - Elevated white blood cell count, unspecified (4) Resting tremor Current Visit: Yes Status: Acute Assessment and plan: Family is concerned about this new onset tremors His tremors could be due to his anoxic brain injury from recent cardiac arrest CT of head - no acute changes Neurologist did not recommend any further work up EEG - showed metabolic encephaloapthy changes As per neurology recommendations d/c his Seroquel day time dose continued bed time dose (5) Anoxic brain injury Current Visit: Yes Status: Acute (6) ESRD on dialysis Current Visit: Yes Status: Chronic Assessment and plan: HD as per nephro (7) Diabetes Current Visit: No Status: Chronic Assessment and plan: ISS at low Qualifiers: Diabetes mellitus type: type 2 Diabetes mellitus complication status: with kidney complications Diabetes mellitus complication detail: with other kidney complication Diabetes mellitus exterminator helper insulin use: without exterminator helper use Qualified Code(s): E11.29 - Type 2 diabetes mellitus with other diabetic kidney complication (8) History of bacteremia Current Visit: Yes Status: Acute (9) Hypertension Current Visit: No Status: Chronic Assessment and plan: Resumed his home meds Qualifiers: Hypertension type: essential hypertension Qualified Code(s): I10 - Essential (primary) hypertension - Subjective Interval history: Mr. Hernandez is a 71 year old male with past medical history of ESRD on hemodialysis, recent admission for Klebsiella bacteremia during which he suffered a cardiac arrest and was successfully resuscitated. Now he was sent to our ER from [facility] for evaluation of shivering. The patient suffers with anoxic brain injury and cannot provide any meaningful history. He answers simple questions appropriately, responds to greeting and follows simple commands. 04/08/17: Pt was discharged to go back to [facility] y/d. But due to some miscommunication between our social science teacher and [facility], it did not happen, and [facility] did not hold his bed. So pt is going to stay here till Monday. Pt is alert, awake and Oriented to self. Following all the commands. His twitching in RUE and resting tremors in both UE seems to be improved. He started coughing up bright red blood since this morning. had 3 episodes so far. Denied any CP / SOB. - Constitutional Vitals: Temp Pulse Resp BP Pulse Ox 97.6 F 96 14 130/69 96 04/08/17 10:58 04/08/17 10:58 04/08/17 10:58 04/08/17 10:58 04/08/17 10:58 General appearance: Present: A&O X 3, no acute distress (Currently continuously shivering to involve both upper extremities), answers questions appropriately ( Answers basic questions) - Head Head exam: Present: atraumatic, normal inspection - Neck Neck exam general surgery: Present: supple. Absent: thyromegaly - Respiratory Respiratory exam: Present: decreased breath sounds, wheezes. Absent: rales, respiratory distress, rhonchi - Cardiovascular Cardiovascular exam: Present: RRR, +S1, +S2. Absent: systolic murmur - GI/Abdominal GI/Abdominal exam: Present: soft. Absent: distended, tenderness - Extremities Exam Extremities exam: Present: pedal edema. Absent: tenderness, warm - Neurological Exam Neurological exam: Present: alert, oriented X3 - Psychiatric Psychiatric exam: Present: normal affect, normal mood Internal Medicine: Result - Labs CBC & Chem 7: 04/07/17 03:12 04/07/17 03:12 - ABG Interpretation ABG results: PT/INR, D-dimer PT 11.7 Seconds (9.4-12.1) 04/05/17 03:10 - Impressions Impressions Chest X-Ray 04/08/17 10:55 IMPRESSION: No acute process. IMPRESSION: Mild cardiomegaly D/ / Kit Regan MD / Kit Regan MD Interpreting Provider: Kit Regan MD Consult Discharge Plan - Plan Additional Instructions: Need to f/u with PCP in one week Need to f/u with Neurology Dr. GEORGE / Dr. Ramirez in 1-2 weeks Go for HD as scheduled M/W/F Referrals: Chilo Lewis Jr, MD [Non-Partnered Physician] - 04/20/17 11:00 am Prescriptions: cephALEXin [Keflex] 250 mg PO BID #10 capsule
[2017-04-08] MEDS ORDERED: Oxymetazoline Nasal SPRAY BOTTLE NS PRN (12:19)
--- NOTE | 2017-04-08 12:30 | Event Note ---
Date of Encounter: 04/08/17 Time of Encounter: 12:27 Just noticed he started having nose bleed profusely. Applied some pressure with gauze pad at bed side, now his bleeding stopped. Will apply frequent Afrain nasal spray. Will consult ENT for further care. He may need rhino rocket placement if bleeding recurs.
--- NOTE | 2017-04-08 13:40 | ENT - Consult Note ---
Date of Encounter: 04/08/17 Time of Encounter: 13:36 Assessment and Plan (1) Epistaxis Current Visit: Yes Status: Acute Bleeding from right anterior septum, likely due to NC O2 Merocel placed after large clot removed and bleeding stopped. No additional sites of concern for bleeding. Recommend Afrin spray 2 times daily x 2 more days Recommend heavy Bactroban nasal ointment applied to nose three times daily Will remove Merocel tomorrow hopefully. (2) Hemoptysis Current Visit: Yes Status: Acute More likely coughed up blood from recent epistaxis. No concerning findings for hemoptysis on NPL today. History of Present Illness Consult date: 04/08/17 Reason for ENT Consult: epistaxis History of present illness: Pt is a 71 yo male w ESRD, hx of anoxic brain injury from OR, and DM admitted to [facility] for hemoptysis and SIRS. He is somewhat unclear with his history. States he has been having nose bleeds and coughing up blood clots over the last few months. Denies bleeding issues prior to this. Denies prior nasal trauma. States he had a nasal surgery in the 1980s but unsure why. ENT is consulted to eval hemoptysis which seems to be due to epistaxis. Past Med Surg Social Fam HX - Past Medical History Medical history: aortic aneurysm, diabetes, dialysis, hyperlipidemia, hypertension, myocardial infarction, renal disease, other Psychiatric history: anxiety, depression - Past Surgical History Surgical History: angioplasty/stent, cholecystectomy, other - Social History Smoking Status: Smoker, status unknown Smokeless Tobacco Status: No Alcohol use: unknown Drug use: unknown - Family History Mother Hx Family Cardiac Disorders: Yes (HTN) Father Adopted: No Living Status: Hx Family Cardiac Disorders: Yes (HTN) Hx Family Respiratory Disorders: No Hx Family Cancer: Yes Hx Family GI Disorders: No Hx Family Endocrine Disorder: No Hx Family Neuromuscular Disorders: No Hx Family Neurologic Disorders: No Hx Family HEENT Disorders: No Hx Family Autoimmune Disorders: No Medications and Allergies Budesonide/Formoterol 160/4.5 [Symbicort 160/4.5] 2 puff IH BIDR 09/22/16 [ History] Aspirin 81 mg PO DAILY #0 tab.chew 09/28/16 [Rx] Darbepoetin [Aranesp] 100 mcg SQ QWEEK #0 syringe 03/07/17 [Rx] Heparin 5,000 unit SQ Q8H #0 vial 03/07/17 [Rx] Ipratropium/Albuterol Neb [Duoneb] 3 ml IH [id number] #0 inhsol 03/07/17 [Rx] Quetiapine Fumarate [Seroquel] 50 mg PO HS 04/05/17 [History] Cinacalcet [Sensipar] 30 mg PO DAILY tab 04/07/17 [Rx] Metoprolol [Lopressor] 25 mg PO BID #0 04/07/17 [Rx] Omeprazole [PriLOSEC] 40 mg PO DAILY@0630 04/07/17 [Rx] cephALEXin [Keflex] 250 mg PO BID #10 capsule 04/07/17 [Rx] Allergies iodine Allergy (Verified 02/26/17 11:13) Rash rofecoxib [From Vioxx] Allergy (Verified 02/21/17 06:52) Swelling of Lip/Tongue/Throat ENT - ROS - Constitutional Constitutional ROS: no daytime sleepiness, no fever(s), no headache(s), no lethargy, no snoring, no stops breathing during sleep - EENT Nose, mouth and throat: as per HPI - Cardiovascular Cardiovascular ROS IM: no chest pain, no chest pain at rest - Respiratory hemoptysis - Gastrointestinal Gastrointestinal: no dysphagia, no heartburn, no nausea, no odynophagia - Genitourinary Genitourinary ROS: dysuria (ESRD on HD) - Musculoskeletal Musculoskeletal ROS: no numbness, no tingling - Integumentary Integumentary: no acne, no bleeding lesions - Neurological Neurological ROS: no abnormal speech, no dizziness, no syncope - Psychiatric Psychiatric general: no anxiety - Endocrine Endocrine: no cold intolerance, no deeping of the voice - Hematologic/Lymphatic easy bleeding, no lymphadenopathy - Allergic/Immunologic no tongue swelling, no throat swelling ENT Exam Initial Vital Signs Temp Pulse Resp BP Pulse Ox 98.5 F 95 20 150/89 95 04/05/17 02:46 04/05/17 02:46 04/05/17 02:46 04/05/17 02:46 04/05/17 02:46 - General physical appearance other (pt comfortable in bed with blood on sheets, speaks well but gets confused in history giving easiliy.) - Eyes normal ocular movement - ENT normal pinna, Other (External ear exam normal, Nare paten on the left, Right nare with blood clot removed during exam - Merocel placed and bleeding stopped, Oral exam with clot in OP that was absent after cessation of bleeding. Neck exam normal, no LAD or masses) - Neck no masses, trachea midline, no lymphadectomy - Respiratory normal expansion, normal respiratory effort - Integumentary no rash - Neurologic normal coordination, normal sensation, other (confused easily with hx giving) - Musculoskeletal other (moves all extremities) - Psychiatric oriented to time, oriented to person, oriented to place - Additional Findings Flexible nasolaryngoscopy performed After vernal consent, 50/50% afrin lidocaine spray was instilled for anesthesia. The flexible scope was inserted into the right nares and advanced to the nasopharynx and then larynx. The scope was then retracted without difficulty. The patient tolerated the procedure well. Findings: Evans bleeding from right anterior nasal septum. No other sites of obvious bleeding. There was mild fresh blood in the pharynx with pooling in the pyriforms and vallecula. Larynx was normal without lesion. No additional sites of bleeding seen or concern for lower airway bleeding. Exam Initial Vital Signs Temp Pulse Resp BP Pulse Ox 98.5 F 95 20 150/89 95 04/05/17 02:46 04/05/17 02:46 04/05/17 02:46 04/05/17 02:46 04/05/17 02:46 Results - Labs 04/08/17 12:25 04/07/17 03:12 Abnormal lab results WBC 12.6 K/mcL (4.3-11.1) H 04/07/17 03:12 RBC 2.94 M/mcL (4.19-5.50) L 04/07/17 03:12 Hgb 8.3 g/dL (12.9-16.9) L 04/07/17 03:12 Hct 27.0 % (37.5-50.1) L 04/07/17 03:12 MCHC 30.7 g/dL (31.6-35.5) L 04/07/17 03:12 RDW 17.2 % (11.5-14.5) H 04/07/17 03:12 Chloride 94 mEq/L (98-109) L 04/07/17 03:12 Carbon Dioxide 33 mEq/L (19-29) H 04/07/17 03:12 BUN 54 mg/dL (8-26) H D 04/07/17 03:12 Creatinine 5.06 mg/dL (0.72-1.25) H 04/07/17 03:12 Est GFR ( Amer) 14 (> 60) L 04/07/17 03:12 Est GFR (Non-Af Amer) 11 (> 60) L 04/07/17 03:12 Glucose 102 mg/dL (70-99) H 04/07/17 03:12 POC Glucose 127 (58-89) H 04/08/17 11:07 Calculated Osmolality 303 (280-300) H 04/07/17 03:12 Phosphorus 2.2 mg/dL (2.3-4.7) L 04/05/17 03:10 Troponin I 0.11 ng/mL (0-0.03) H* 04/05/17 13:48 B-Natriuretic Peptide 2579 pg/mL (0-100) H 04/05/17 03:10 Albumin 2.6 g/dL (3.5-5.0) L 04/06/17 06:16 Globulin 5.6 g/dL (2.4-3.5) H 04/06/17 06:16 Albumin/Globulin Ratio 0.5 (1.1-2.2) L 04/06/17 06:16 Urine Clarity Turbid (Clear) A 04/06/17 09:50 Urine Protein >=300 mg/dL (Neg-Trace) H 04/06/17 09:50 Urine Blood Large (Negative) H 04/06/17 09:50 Urine Bilirubin Small (Negative) H 04/06/17 09:50 Ur Leukocyte Esterase Large (Negative) H 04/06/17 09:50 Urine Microscopic RBC TNTC per hpf (0-3) H 04/06/17 09:50 Urine Microscopic WBC TNTC per hpf (0-3) H 04/06/17 09:50 Ur Culture Indicated? YES (NO) A 04/06/17 09:50 All other labs normal. Consult Discharge Plan - Plan Additional Instructions: Need to f/u with PCP in one week Need to f/u with Neurology Dr. GEORGE / Dr. Ramirez in 1-2 weeks Go for HD as scheduled M/W/F Referrals: Chilo Lewis Jr, MD [Non-Partnered Physician] - 04/20/17 11:00 am ([facility] Prescriptions: cephALEXin [Keflex] 250 mg PO BID #10 capsule
[2017-04-08 14:00] LABS: Hematocrit 31.5 % (37.5-50.1); Hemoglobin 9.7 g/dL (12.9-16.9)
[2017-04-08 14:04] LABS: Prothrombin Time 11.1 Seconds (9.4-12.1)
[2017-04-08 20:05] LABS: Hematocrit 29.6 % (37.5-50.1); Hemoglobin 9.3 g/dL (12.9-16.9)
[2017-04-09] MEDS: amLODIPine 5 MG TABLET PO SCH ×2 (00:18→08:25)
[2017-04-09] MEDS: Ipratropium/Albuterol Neb 3 ML IH SCH ×5 (03:47→20:29)
[2017-04-09 05:50] LABS: Basophils # 0.1 K/mcL (0.0-0.2); Basophils % 0.5 %; Eosinophils # 0.4 K/mcL (0.0-0.6); Eosinophils % 3.5 %; Hemoglobin 9.5 g/dL (12.9-16.9); Immature Granulocytes % 1.6 % (0-4); Lymphocytes # 2.6 K/mcL (0.6-4.6); Lymphocytes % 22.5 %; Mean Corpuscular HGB Conc 31.7 g/dL (31.6-35.5); Mean Corpuscular Hemoglobin 28.8 pg (28.0-33.3); Mean Corpuscular Volume 90.9 fL (83.0-100.0); Monocytes # 0.8 K/mcL (0.0-1.3); Monocytes % 6.9 %; Neutrophils # 7.6 K/mcL (1.6-8.9); Platelet Count 239 K/mcL (140-400); Red Cell Distribution Width 17.5 % (11.5-14.5)
[2017-04-09 06:02] LABS: Calcium 10.2 mg/dL (8.6-10.8); Magnesium 2.1 mg/dL (1.6-2.6); Potassium 4.4 mEq/L (3.5-4.5)
[2017-04-09] MEDS: Insulin LISPRO 300 UNITS/3 ML VIAL SQ SCH ×3 (07:35→16:19)
[2017-04-09] MEDS: Budesonide/Formoterol 160/4.5 MDI IH SCH ×2 (07:56→20:29)
--- NOTE | 2017-04-09 07:57 | Nephrology Progress Note ---
Date of Encounter: 04/09/17 Time of Encounter: 07:45 - Assessment and Plan (1) ESRD on dialysis Current Visit: Yes Status: Chronic Leukocytosis. "Shivers" appear more as tremors, jerking. Question medication related. S/P cardiac arrest with anoxic brain injury. Neuro on board. Did not have myoclonic movements prior to cardiac arrest and do not feel ESRD related. ESRD- No HD today, keeping MWF schedule. Subjective Principal diagnosis: tremors Interval history: Laying in bed. watching tv. Very alert, speaks clearly though does not know where he is. No tremors noted. Epistaxis event noted last PM. Objective - Vital Signs Vital signs: Vital Signs Temp Pulse Resp BP Pulse Ox 04/09/17 07:16 97.6 F 88 18 188/69 95 04/09/17 03:26 98.1 F 72 18 147/76 95 04/08/17 23:09 97.8 F 73 16 173/82 94 04/08/17 20:25 97.5 F L 90 18 168/74 04/08/17 20:00 15 98 04/08/17 16:37 98.4 F 81 20 159/88 90 04/08/17 16:23 14 96 Intake and Output 04/08/17 04/08/17 04/09/17 15:59 23:59 07:59 Intake Total 50 / 1250 125 / 125 125 / 125 Balance 50 / 1250 125 / 125 125 / 125 Intake: Oral 0 / 0 Free Water Intake Amount 50 / 450 125 / 125 125 / 125 Other: Meal Lunch Weight 89.1 kg Blood Glucose* 135 120 Patient Weight 04/09/17 23:59 Weight 89.1 kg - General Appearance General appearance: Present: well-developed, well-nourished, appears started age EENT: Present: mucous membranes moist Neck: Present: no JVD Respiratory: Present: clear Cardiology: Present: no edema, irregular rhythm Gastrointestinal: Present: normoactive bowel sounds, no tenderness Integumentary: Present: warm and dry Psychiatric: Present: cooperative - Lab 04/09/17 04:53 04/09/17 04:53 Most recent lab results Calcium 10.2 mg/dL (8.6-10.8) 04/09/17 04:53 Phosphorus 2.2 mg/dL (2.3-4.7) L 04/05/17 03:10 Magnesium 2.1 mg/dL (1.6-2.6) 04/09/17 04:53 Consult Discharge Plan - Plan Additional Instructions: Need to f/u with PCP in one week Need to f/u with Neurology Dr. GEORGE / Dr. Ramirez in 1-2 weeks Go for HD as scheduled M/W/F Referrals: Chilo Lewis Jr, MD [Non-Partnered Physician] - 04/20/17 11:00 am ([facility])
--- NOTE | 2017-04-09 08:44 | Event Note ---
Date of Encounter: 04/09/17 Time of Encounter: 08:42 Patient had ENT evaluation and was found to have epistaxis and underwent nasal packing overnight per nursing staff there has not been any further episodes of hemoptysis. I suspect he was coughing up aspirated blood from the nasopharynx. Pulmonary will sign off please call with any questions
--- NOTE | 2017-04-09 11:27 | ENT - Progress Note ---
Date of Encounter: 04/09/17 Time of Encounter: 11:24 - Assessment and Plan (1) Epistaxis Current Visit: Yes Status: Acute Bleeding from right anterior septum, likely due to NC O2 Merocel removed today, slight oozing from right septum controlled with AgNO3 cautery. Hemostatic at the end of exam today. Continue with bid Afrin sprays x 2 more days Continue with heavy bactroban application to front of nose three times daily. No further intervention needed. ENT available as needed. (2) Hemoptysis Current Visit: Yes Status: Acute More likely coughed up blood from recent epistaxis. No concerning findings for hemoptysis on NPL exam. Subjective Patient reports: no new complaints Narrative: Pt doing better with no signs of nasal bleeding overnight. Right merocel still in place, removed during exam today with subsequent slight oozing. This was controlled with AgNO3 cautery. He is not bleeding now and denies any current nasal complaints. Objective Initial Vital Signs Temp Pulse Resp BP Pulse Ox 98.5 F 95 20 150/89 95 04/05/17 02:46 04/05/17 02:46 04/05/17 02:46 04/05/17 02:46 04/05/17 02:46 - General physical appearance well developed, well nourished - ENT Other - Neck no masses, no lymphadectomy - Labs 04/09/17 04:53 04/09/17 04:53 Diabetes panel 04/09/17 Range/Units 04:53 Sodium 138 (136-145) mEq/L Potassium 4.4 (3.5-4.5) mEq/L Chloride 92 L (98-109) mEq/L Carbon Dioxide 32 H (19-29) mEq/L BUN 63 H (8-26) mg/dL Creatinine 5.74 H (0.72-1.25) mg/dL Glucose 115 H (70-99) mg/dL Calcium 10.2 (8.6-10.8) mg/dL Calcium panel 04/09/17 Range/Units 04:53 Calcium 10.2 (8.6-10.8) mg/dL Pituitary panel 04/09/17 Range/Units 04:53 Sodium 138 (136-145) mEq/L Potassium 4.4 (3.5-4.5) mEq/L Chloride 92 L (98-109) mEq/L Carbon Dioxide 32 H (19-29) mEq/L BUN 63 H (8-26) mg/dL Creatinine 5.74 H (0.72-1.25) mg/dL Glucose 115 H (70-99) mg/dL Calcium 10.2 (8.6-10.8) mg/dL Adrenal panel 04/09/17 Range/Units 04:53 Sodium 138 (136-145) mEq/L Potassium 4.4 (3.5-4.5) mEq/L Chloride 92 L (98-109) mEq/L Carbon Dioxide 32 H (19-29) mEq/L BUN 63 H (8-26) mg/dL Creatinine 5.74 H (0.72-1.25) mg/dL Glucose 115 H (70-99) mg/dL Calcium 10.2 (8.6-10.8) mg/dL Consult Discharge Plan - Plan Additional Instructions: Need to f/u with PCP in one week Need to f/u with Neurology Dr. GEORGE / Dr. Ramirez in 1-2 weeks Go for HD as scheduled M/W/F Referrals: Chilo Lewis Jr, MD [Non-Partnered Physician] - 04/20/17 11:00 am (patient is going to [facility]) Danish Ritchie DO [Partnered Physician] - (Follow up with ENT outpatient as needed. )
--- NOTE | 2017-04-09 12:54 | Internal Med Progress Note ---
Date of Encounter: 04/09/17 Time of Encounter: 12:52 - Assessment and plan (1) Epistaxis Current Visit: Yes Status: Acute Assessment and plan: improved ENT on board - had Merocel placed in y/d and got removed today AgNo3 cautery done today on Afrin sprays BID stable Hb (2) Hemoptysis Current Visit: No Status: Acute Assessment and plan: Most likely due to swallowed blood from Rt anterior septum epistaxis improved..no more hemoptysis cont close monitoring stable Hb (3) SIRS (systemic inflammatory response syndrome) Current Visit: Yes Status: Acute Assessment and plan: Pt did meet SIRS criteria with elevated WBC and Fever T max 100.4 No clear source of inf WBC started trending down CXR - negative urine cx - no growth Cont him on Keflex as prophylactic for now Blood cx so far no growth (4) Leukocytosis Current Visit: Yes Status: Acute Qualifiers: Leukocytosis type: unspecified Qualified Code(s): D72.829 - Elevated white blood cell count, unspecified (5) Resting tremor Current Visit: Yes Status: Acute Assessment and plan: Improving His tremors could be due to his anoxic brain injury from recent cardiac arrest CT of head - no acute changes Neurologist did not recommend any further work up EEG - showed metabolic encephaloapthy changes As per neurology recommendations d/c his Seroquel day time dose continued bed time dose (6) Anoxic brain injury Current Visit: Yes Status: Acute (7) ESRD on dialysis Current Visit: Yes Status: Chronic Assessment and plan: HD as per nephro (8) Diabetes Current Visit: No Status: Chronic Assessment and plan: ISS at low Qualifiers: Diabetes mellitus type: type 2 Diabetes mellitus complication status: with kidney complications Diabetes mellitus complication detail: with other kidney complication Diabetes mellitus intermediate card tender insulin use: without snf use Qualified Code(s): E11.29 - Type 2 diabetes mellitus with other diabetic kidney complication (9) History of bacteremia Current Visit: Yes Status: Resolved (10) Hypertension Current Visit: No Status: Chronic Assessment and plan: Resumed his home meds Qualifiers: Hypertension type: essential hypertension Qualified Code(s): I10 - Essential (primary) hypertension - Subjective Interval history: Mr. Hernandez is a 71 year old male with past medical history of ESRD on hemodialysis, recent admission for Klebsiella bacteremia during which he suffered a cardiac arrest and was successfully resuscitated. Now he was sent to our ER from [facility] for evaluation of shivering. The patient suffers with anoxic brain injury and cannot provide any meaningful history. He answers simple questions appropriately, responds to greeting and follows simple commands. 04/08/17: Pt was discharged to go back to SNF y/d. But due to some miscommunication between our child welfare social worker and [facility], it did not happen, and [facility] did not hold his bed. So pt is going to stay here till Monday. Pt is alert, awake and Oriented to self. Following all the commands. His twitching in RUE and resting tremors in both UE seems to be improved. He does not have any more hemoptysis / no more epistaxis. . Denied any CP / SOB. - Constitutional Vitals: Temp Pulse Resp BP Pulse Ox 98.3 F 74 16 192/87 93 04/09/17 10:55 04/09/17 10:55 04/09/17 10:55 04/09/17 10:55 04/09/17 10:55 General appearance: Present: A&O X 3, no acute distress (Currently continuously shivering to involve both upper extremities), answers questions appropriately ( Answers basic questions) - Head Head exam: Present: atraumatic, normal inspection - ENT ENT exam: Present: mucous membranes dry Additional comments: no active nose bleeding noticed - Respiratory Respiratory exam: Present: decreased breath sounds, wheezes. Absent: rales, respiratory distress, rhonchi - Cardiovascular Cardiovascular exam: Present: RRR, +S1, +S2. Absent: systolic murmur - GI/Abdominal GI/Abdominal exam: Present: soft. Absent: rebound, rigid, tenderness - Extremities Exam Extremities exam: Present: pedal edema (trace). Absent: calf tenderness, tenderness - Psychiatric Psychiatric exam: Present: normal affect, normal mood Internal Medicine: Result - Labs CBC & Chem 7: 04/09/17 04:53 04/09/17 04:53 Labs: Short CBC 04/08/17 04/09/17 Range/Units 19:47 04:53 WBC 11.7 H (4.3-11.1) K/mcL Hgb 9.3 L 9.5 L (12.9-16.9) g/dL Hct 29.6 L 30.0 L (37.5-50.1) % Plt Count 239 (140-400) K/mcL Neutrophils # 7.6 (1.6-8.9) K/mcL BMP 04/09/17 04:53 Sodium 138 Potassium 4.4 Chloride 92 L Carbon Dioxide 32 H BUN 63 H Creatinine 5.74 H Glucose 115 H Calcium 10.2 - ABG Interpretation ABG results: PT/INR, D-dimer PT 11.1 Seconds (9.4-12.1) 04/08/17 12:25 Consult Discharge Plan - Plan Additional Instructions: Need to f/u with PCP in one week Need to f/u with Neurology Dr. GEORGE / Dr. Ramirez in 1-2 weeks Go for HD as scheduled M/W/F Referrals: Danish Ritchie DO [Partnered Physician] - (Follow up with ENT outpatient as needed. ) Chilo Lewis Jr, MD [Non-Partnered Physician] - 04/20/17 11:00 am ([facility] to [facility])
[2017-04-09] MEDS: cephALEXin 250 MG CAPSULE PO SCH ×2 (13:18→22:22)
[2017-04-10] MEDS: Ipratropium/Albuterol Neb 3 ML IH SCH ×5 (00:43→16:20)
[2017-04-10 05:32] LABS: Calcium 9.8 mg/dL (8.6-10.8); Potassium 4.5 mEq/L (3.5-4.5)
[2017-04-10 06:17] LABS: Basophils % 0.4 %; Eosinophils # 0.4 K/mcL (0.0-0.6); Eosinophils % 3.4 %; Hematocrit 29.3 % (37.5-50.1); Hemoglobin 9.3 g/dL (12.9-16.9); Lymphocytes # 2.6 K/mcL (0.6-4.6); Lymphocytes % 24.7 %; Mean Corpuscular HGB Conc 31.7 g/dL (31.6-35.5); Mean Corpuscular Hemoglobin 29.2 pg (28.0-33.3); Mean Corpuscular Volume 91.8 fL (83.0-100.0); Mean Platelet Volume 11.2 fL (9.4-12.4); Monocytes # 0.6 K/mcL (0.0-1.3); Neutrophils # 6.8 K/mcL (1.6-8.9); Platelet Count 231 K/mcL (140-400); Red Blood Count 3.19 M/mcL (4.19-5.50); Red Cell Distribution Width 17.5 % (11.5-14.5); Segmented Neutrophils % 64.5 %
[2017-04-10] MEDS: Insulin LISPRO 300 UNITS/3 ML VIAL SQ SCH ×3 (06:59→15:45)
[2017-04-10] MEDS: Budesonide/Formoterol 160/4.5 MDI IH SCH (07:47)
--- NOTE | 2017-04-10 08:16 | Nephrology Progress Note ---
Date of Encounter: 04/10/17 Time of Encounter: 08:13 - Assessment and Plan (1) ESRD on dialysis Current Visit: Yes Status: Chronic Patient will undergo dialysis today. He will be maintained on Aranesp for his anemia. 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 (2) Atrial fibrillation Current Visit: No Status: Chronic Qualifiers: Atrial fibrillation type: paroxysmal Qualified Code(s): I48.0 - Paroxysmal atrial fibrillation (3) CAD (coronary artery disease) Current Visit: No Status: Chronic Qualifiers: Coronary Disease-Associated Artery/Lesion type: [place] artery [place] vs. transplanted heart: [place] heart Associated angina: without angina Qualified Code(s): I25.10 - Atherosclerotic heart disease of [place] coronary artery without angina pectoris Subjective Principal diagnosis: tremors Interval history: Patient denies any complaints. He continues on tube feedings via a PEG tube. He is scheduled for his usual dialysis today. Cultures remain negative. Hemoglobin is 9.3. Vital signs are stable. Objective - Vital Signs Vital signs: Vital Signs Temp Pulse Resp BP Pulse Ox 04/10/17 07:47 18 96 04/10/17 06:49 97.6 F 77 18 161/75 95 04/10/17 05:23 97.6 F 64 16 143/76 96 04/10/17 00:43 14 96 04/09/17 23:28 97.8 F 73 18 146/83 96 04/09/17 20:29 15 99 04/09/17 19:10 98.2 F 80 18 142/79 100 04/09/17 16:15 16 91 04/09/17 15:25 97.7 F 78 16 172/74 91 04/09/17 10:55 98.3 F 74 16 192/87 93 Intake and Output 04/09/17 04/10/17 04/10/17 23:59 07:59 15:59 Intake Total 125 / 125 125 / 125 Balance 125 / 125 125 / 125 Intake: Oral 0 / 0 Free Water Intake Amount 125 / 125 125 / 125 Other: Meal NPO # Urine Diapers 1 Weight 88.3 kg Blood Glucose* 133 112 Patient Weight 04/10/17 23:59 Weight 88.3 kg - General Appearance Exam: Patient is alert. He is in no acute distress. Lungs [place] breath sounds otherwise clear. Heart irregular rate and rhythm. Abdomen is soft and nontender. PEG tube is in place. There is no lower extremity swelling. There is an AV fistula in the right upper extremity with several aneurysmal dilatations. - Lab 04/10/17 05:00 04/10/17 05:00 Most recent lab results Calcium 9.8 mg/dL (8.6-10.8) 04/10/17 05:00 Phosphorus 2.2 mg/dL (2.3-4.7) L 04/05/17 03:10 Magnesium 2.1 mg/dL (1.6-2.6) 04/09/17 04:53 Consult Discharge Plan - Plan Additional Instructions: Need to f/u with PCP in one week Need to f/u with Neurology Dr. GEORGE / Dr. Ramirez in 1-2 weeks Go for HD as scheduled M/W/F Referrals: Danish Ritchie DO [Partnered Physician] - (Follow up with ENT outpatient as needed. ) Chilo Lewis Jr, MD [Non-Partnered Physician] - 04/20/17 11:00 am (patient is going to ecf)
[2017-04-10] MEDS ORDERED: 0.9 % Sodium Chloride 250 ML IVC PRN (08:17)
[2017-04-10] MEDS: amLODIPine 5 MG TABLET PO SCH (08:34)
[2017-04-10] MEDS: cephALEXin 250 MG CAPSULE PO SCH (08:35)
--- NOTE | 2017-04-10 15:00 | Internal Med Progress Note ---
Date of Encounter: 04/10/17 Time of Encounter: 14:58 - Assessment and plan (1) Epistaxis Current Visit: Yes Status: Acute Assessment and plan: improved ENT on board - had Merocel placed in on 04/08/17 and got removed 04/09/17 AgNo3 cautery done y/d on Afrin sprays BID stable Hb (2) Hemoptysis Current Visit: No Status: Acute Assessment and plan: Most likely due to swallowed blood from Rt anterior septum epistaxis improved..no more hemoptysis cont close monitoring stable Hb (3) SIRS (systemic inflammatory response syndrome) Current Visit: Yes Status: Acute Assessment and plan: Pt did meet SIRS criteria with elevated WBC and Fever T max 100.4 No clear source of inf WBC back to normal CXR - negative urine cx - no growth Cont him on Keflex as prophylactic for now Blood cx so far no growth (4) Leukocytosis Current Visit: Yes Status: Acute Qualifiers: Leukocytosis type: unspecified Qualified Code(s): D72.829 - Elevated white blood cell count, unspecified (5) Resting tremor Current Visit: Yes Status: Acute Assessment and plan: Improved His tremors could be due to his anoxic brain injury from recent cardiac arrest CT of head - no acute changes Neurologist did not recommend any further work up EEG - showed metabolic encephaloapthy changes As per neurology recommendations d/c his Seroquel day time dose continued bed time dose (6) Anoxic brain injury Current Visit: Yes Status: Acute (7) ESRD on dialysis Current Visit: Yes Status: Chronic Assessment and plan: HD as per nephro (8) Diabetes Current Visit: No Status: Chronic Assessment and plan: ISS at low Qualifiers: Diabetes mellitus type: type 2 Diabetes mellitus complication status: with kidney complications Diabetes mellitus complication detail: with other kidney complication Diabetes mellitus senior care insulin use: without senior care use Qualified Code(s): E11.29 - Type 2 diabetes mellitus with other diabetic kidney complication (9) History of bacteremia Current Visit: Yes Status: Resolved (10) Hypertension Current Visit: No Status: Chronic Assessment and plan: Resumed his home meds Qualifiers: Hypertension type: essential hypertension Qualified Code(s): I10 - Essential (primary) hypertension - Subjective Interval history: Mr. Hernandez is a 71 year old male with past medical history of ESRD on hemodialysis, recent admission for Klebsiella bacteremia during which he suffered a cardiac arrest and was successfully resuscitated. Now he was sent to our ER from [facility] for evaluation of shivering. The patient suffers with anoxic brain injury and cannot provide any meaningful history. He answers simple questions appropriately, responds to greeting and follows simple commands. 04/08/17: Pt was discharged to go back to SNF y/d. But due to some miscommunication between our social service coordinator and [facility], it did not happen, and [facility] did not hold his bed. So pt is going to stay here till Monday. Pt is alert, awake and Oriented to self. Following all the commands. His twitching in RUE and resting tremors in both UE seems to be improved. He does not have any more hemoptysis / no more epistaxis. . Denied any CP / SOB. - Constitutional Vitals: Temp Pulse Resp BP Pulse Ox 97.1 F L 77 15 127/77 96 04/10/17 13:30 04/10/17 06:49 04/10/17 13:30 04/10/17 13:30 04/10/17 08:46 General appearance: Present: A&O X 3, no acute distress (Currently continuously shivering to involve both upper extremities), answers questions appropriately ( Answers basic questions) - Head Head exam: Present: atraumatic, normal inspection - ENT ENT exam: Present: normal exam - Respiratory Respiratory exam: Present: decreased breath sounds, wheezes. Absent: rales, respiratory distress, rhonchi - GI/Abdominal GI/Abdominal exam: Present: normal bowel sounds, soft. Absent: rebound, rigid, tenderness - Extremities Exam Extremities exam: Absent: calf tenderness, pedal edema, tenderness - Neurological Exam Neurological exam: Present: alert, oriented X3 - Psychiatric Psychiatric exam: Present: normal affect, normal mood Internal Medicine: Result - Labs CBC & Chem 7: 04/10/17 05:00 04/10/17 05:00 Labs: Short CBC 04/10/17 Range/Units 05:00 WBC 10.6 (4.3-11.1) K/mcL Hgb 9.3 L (12.9-16.9) g/dL Hct 29.3 L (37.5-50.1) % Plt Count 231 (140-400) K/mcL Neutrophils # 6.8 (1.6-8.9) K/mcL BMP 04/10/17 05:00 Sodium 137 Potassium 4.5 Chloride 92 L Carbon Dioxide 31 H BUN 82 H D Creatinine 7.03 H Glucose 115 H Calcium 9.8 - ABG Interpretation ABG results: PT/INR, D-dimer PT 11.1 Seconds (9.4-12.1) 04/08/17 12:25 - VTE Documentation of Mechanical Device: Intermittent pneumatic compression device Consult Discharge Plan - Plan Additional Instructions: Need to f/u with PCP in one week Need to f/u with Neurology Dr. GEORGE / Dr. Ramirez in 1-2 weeks Go for HD as scheduled M/W/F Referrals: Danish Ritchie DO [Partnered Physician] - (Follow up with ENT outpatient as needed. ) Chilo Lewis Jr, MD [Non-Partnered Physician] - 04/20/17 11:00 am (patient is going to e[facility])
[2017-04-10] MEDS ORDERED: 0.9 % Sodium Chloride 2,000 ML ONE (15:05)
--- NOTE | 2017-04-10 15:07 | Discharge Summary ---
Date of Encounter: 04/10/17 Time of Encounter: 15:01 - Discharge Diagnosis (1) Epistaxis Priority: Secondary Status: Resolved (2) Hemoptysis Priority: Secondary Status: Resolved (3) SIRS (systemic inflammatory response syndrome) Priority: Primary Status: Acute (4) Leukocytosis Priority: Primary Status: Acute Qualifiers: Leukocytosis type: unspecified Qualified Code(s): D72.829 - Elevated white blood cell count, unspecified (5) Resting tremor Priority: Primary Status: Acute (6) Anoxic brain injury Priority: Secondary Status: Acute (7) ESRD on dialysis Priority: Secondary Status: Chronic (8) Diabetes Priority: Secondary Status: Chronic Qualifiers: Diabetes mellitus type: type 2 Diabetes mellitus complication status: with kidney complications Diabetes mellitus complication detail: with other kidney complication Diabetes mellitus jail insulin use: without intermodal truck driver use Qualified Code(s): E11.29 - Type 2 diabetes mellitus with other diabetic kidney complication (9) History of bacteremia Priority: Secondary Status: Resolved (10) Hypertension Priority: Secondary Status: Chronic Qualifiers: Hypertension type: essential hypertension Qualified Code(s): I10 - Essential (primary) hypertension - Discharge Medications Home Medications: Budesonide/Formoterol 160/4.5 [Symbicort 160/4.5] 2 puff IH BIDR 09/22/16 [ History] Aspirin 81 mg PO DAILY #0 tab.chew 09/28/16 [Rx] Darbepoetin [Aranesp] 100 mcg SQ QWEEK #0 syringe 03/07/17 [Rx] Heparin 5,000 unit SQ Q8H #0 vial 03/07/17 [Rx] Ipratropium/Albuterol Neb [Duoneb] 3 ml IH [id number] #0 inhsol 03/07/17 [Rx] Quetiapine Fumarate [Seroquel] 50 mg PO HS 04/05/17 [History] Cinacalcet [Sensipar] 30 mg PO DAILY tab 04/07/17 [Rx] Metoprolol [Lopressor] 25 mg PO BID #0 04/07/17 [Rx] Omeprazole [PriLOSEC] 40 mg PO DAILY@0630 04/07/17 [Rx] Allergies/Adverse Reactions: Allergies iodine Allergy (Verified 02/26/17 11:13) Rash rofecoxib [From Vioxx] Allergy (Verified 02/21/17 06:52) Swelling of Lip/Tongue/Throat Date of admission: 04/08/17 12:31 Primary care physician: Fabian Carney MD Consults: 04/08/17 13:45 Consult to ENT [CONS] Routine Consulting Provider: ANGELA Velazquez Reason for Consult: Epistaxis Call Completed: Yes 04/10/17 08:30 Consult to Dialysis [CONS] ONCE - Patient Status Disposition: Transfer SNF Condition: Good Overall status at discharge: patient is back to baseline - Discharge Instructions Follow Up With: Danish Ritchie DO [Partnered Physician] - (Follow up with ENT outpatient as needed. ) Chilo Lewis Jr, MD [Non-Partnered Physician] - 04/20/17 11:00 am (patient is going to e[facility]) Additional Instructions: Need to f/u with PCP in one week Need to f/u with Neurology Dr. JOHNSON / Dr. Ramirez in 1-2 weeks Go for HD as scheduled M/W/F - Diet and Activity Activity: as per physical therapy Diet: low salt diet Hospital course: Mr. Hernandez is a 71 year old male with past medical history of ESRD on hemodialysis, recent admission for Klebsiella bacteremia during which he suffered a cardiac arrest and was successfully resuscitated. Now he was sent to our ER from [facility] for evaluation of shivering. The patient suffers with anoxic brain injury and cannot provide any meaningful history. He answers simple questions appropriately, responds to greeting and follows simple commands. Pt was admitted here for SIRS with unclear source of infection, and twitching in RUE and resting tremors. He was started on empirical abx with [place], his WBC came down to 12.5, he remained afebrile more than 48hrs. We did blood cx, which were no growth in 2 days, sent for urine cx - which came back as no growth. Even though his CXr did not show any acute infiltrates, given his high risk for aspiration and recent pneumonia, we decided give him PO Abx for questionable pneumonia. I consulted neurologist regarding his tremors, also did EEG. EEG came back as consistent with mild diffuse cerebral dysfunction that can be seen in patients with encephalopathy, metabolic/toxic, electrolyte derangement, or other causes. Clinical correlation suggested. Spoke to Neurologist Dr. Johnson, who suggested his tremors could be due to his anoxic brain injury, however since he was on high dose of seroquel and seems to be he is drowsy at times, so recommend to stop day time seroquel and continue bed time dose only. Today pt is more alert, awake and oriented, following all the commands, able to answer most of the questions in one word answers. spoke to pt' s son over the ph and updated him about the current care. Pt did not go to [facility] on 04/07/17 since the [facility] staff [facility] bed. So pt stayed here over the weekend until his bed ready at [facility] today. Over the weekend on on 04/08/17 morning pt started coughing up blood x 3episodes , followed by Rt nose epistaxis. I did consult Pulmonology and ENT. It looks like he coughed up the swallowed blood from epistaxis. ENT did put Merocel placed in on 04/08/17 , which got removed following day and did AgNo3 cauterization. Since then there is no more active bleding and his Hb is stable too. Finally today his bed got ready at [facility] so will d.c him there today. He finished 5 days abx course here, does not need any more abx - Time Spent with Patient Total time spent providing and/or coordinating discharge services: - Constitutional Vitals: Temp Pulse Resp BP Pulse Ox 97.1 F L 77 15 127/77 96 04/10/17 13:30 04/10/17 06:49 04/10/17 13:30 04/10/17 13:30 04/10/17 08:46 General appearance: Present: A&O X 3, no acute distress (Currently continuously shivering to involve both upper extremities), answers questions appropriately ( Answers basic questions) - Head Head exam: Present: atraumatic, normal inspection - ENT ENT exam: Present: normal exam - Respiratory Respiratory exam: Present: decreased breath sounds, wheezes. Absent: respiratory distress, rhonchi - Cardiovascular Cardiovascular exam: Present: RRR, +S1, +S2. Absent: systolic murmur - GI/Abdominal GI/Abdominal exam: Present: normal bowel sounds, soft. Absent: rebound, rigid, tenderness - Psychiatric Psychiatric exam: Present: normal affect, normal mood - VTE Documentation of Mechanical Device: Intermittent pneumatic compression device
--- NOTE | 2017-04-10 15:11 | Physician Discharge Referral ---
ExtendedCare Referral Info Transfer To: ECF Provider in Charge after Transfer: PCP Institutional Level of Care: Skilled - Diagnosis (1) Epistaxis Status: Resolved (2) Hemoptysis Status: Resolved (3) SIRS (systemic inflammatory response syndrome) Status: Acute (4) Leukocytosis Status: Acute (5) Resting tremor Status: Acute (6) Anoxic brain injury Status: Acute (7) ESRD on dialysis Status: Chronic (8) Diabetes Status: Chronic (9) History of bacteremia Status: Resolved (10) Hypertension Status: Chronic - Transfer Medications Home Medications: Budesonide/Formoterol 160/4.5 [Symbicort 160/4.5] 2 puff IH BIDR 09/22/16 [ History] Aspirin 81 mg PO DAILY #0 tab.chew 09/28/16 [Rx] Darbepoetin [Aranesp] 100 mcg SQ QWEEK #0 syringe 03/07/17 [Rx] Heparin 5,000 unit SQ Q8H #0 vial 03/07/17 [Rx] Ipratropium/Albuterol Neb [Duoneb] 3 ml IH [id number] #0 inhsol 03/07/17 [Rx] Quetiapine Fumarate [Seroquel] 50 mg PO HS 04/05/17 [History] Cinacalcet [Sensipar] 30 mg PO DAILY tab 04/07/17 [Rx] Metoprolol [Lopressor] 25 mg PO BID #0 04/07/17 [Rx] Omeprazole [PriLOSEC] 40 mg PO DAILY@0630 04/07/17 [Rx] Allergies/Adverse Reactions: Allergies iodine Allergy (Verified 02/26/17 11:13) Rash rofecoxib [From Vioxx] Allergy (Verified 02/21/17 06:52) Swelling of Lip/Tongue/Throat - Respiratory Orders Smoking Cessation: Smoking cessation has been advised. For more information, call the [place] Tobacco Quit Line at 4-743-EGAF-NOW. CERTIFICATION: I certify that the transfer of the above named patient to an Extended Care Facility is necessary for the continuing treatment of the diagnosis listed. The above information is true and accurate reflection of patient's current condition. Confidential - Redisclosure prohibited without a patient's written consent.
[2017-04-10 15:38] VITALS: BP 134/64
== END 2017-04-10 17:16 | DRG 853 ==
LOC: EMEROO 02:45 → 2NNU 02:45 → 2ANU 04-06 18:02
PROVIDERS: ADMIT Internal Medicine; ATTEND Internal Medicine

== ENCOUNTER 2017-05-09 17:39 | Observation (INO) ==
[2017-05-09] MEDS ORDERED: Ipratropium/Albuterol Neb 3 ML IH ONE (17:42)
--- NOTE | 2017-05-09 17:44 | Emergency Department Note ---
Disposition Clinical Impression: Hypoxia, ESRD (end stage renal disease), Lactic acid acidosis Disposition: Admitted As Inpatient Condition: Good General Adult HPI - General Chief complaint: ED Shortness of Breath/Dyspnea Stated complaint: JESENIA Time Seen by Provider: 05/09/17 17:41 Nursing Notes Reviewed: Yes Vital Signs Reviewed: Yes - Related Data Home Medications Medication Instructions Recorded Confirmed Budesonide/Formoterol 160/4.5 2 puff IH BIDR 09/22/16 05/09/17 [Symbicort 160/4.5] Quetiapine Fumarate [Seroquel] 50 mg GTUBE HS 04/05/17 05/09/17 Aspirin 81 mg GTUBE DAILY 05/09/17 05/09/17 Ipratropium/Albuterol Neb [Duoneb] 3 ml IH Q4H 05/09/17 05/09/17 Metoprolol [Lopressor] 25 mg GTUBE BID 05/09/17 05/09/17 Nut.tx.impaired Renal Fxn,Soy 237 ml GTUBE 5XD 05/09/17 05/09/17 [Nepro Carb Steady] Omeprazole [PriLOSEC] 40 mg GTUBE DAILY 05/09/17 05/09/17 Previous Rx's Medication Instructions Recorded Darbepoetin [Aranesp] 100 mcg SQ QWEEK #0 syringe 03/07/17 Cinacalcet [Sensipar] 30 mg PO DAILY tab 04/07/17 Allergies Allergy/AdvReac Type Severity Reaction Status Date / Time iodine Allergy Rash Verified 02/26/17 11:13 rofecoxib [From Vioxx] Allergy Swelling Verified 02/21/17 06:52 of Lip/Tongue/Throat Past Medical History - Past Medical History Medical history: Reports: aortic aneurysm, diabetes, dialysis, hyperlipidemia, hypertension, myocardial infarction, renal disease, other Surgical history: Reports: angioplasty/stent, cholecystectomy, other Psychiatric history: Reports: anxiety, depression - Social History Smoking Status: Smoker, status unknown Smokeless Tobacco Status: No Alcohol use: Reports: unknown Drug use: Reports: unknown Course Vital Signs Temperature 98.2 F 05/09/17 17:46 Pulse Rate 74 05/09/17 17:46 Respiratory Rate 20 05/09/17 17:46 Blood Pressure 135/86 05/09/17 17:46 O2 Sat by Pulse Oximetry 100 05/09/17 17:46 Temperature 98.2 F 05/09/17 17:46 Pulse Rate 79 05/09/17 19:50 Respiratory Rate 18 05/09/17 22:00 Blood Pressure 136/77 05/09/17 22:00 O2 Sat by Pulse Oximetry 100 05/09/17 19:50 Oxygen Delivery Oxygen Delivery Nasal Cannula Medical Decision Making - MDM Narrative Medical decision making narrative: I examined this patient and my medical decision-making was reviewed with the Resident Physician. I agree with the documented findings, disposition and treatment plan as described except to the extent set forth below. Patient seen on arrival by EMS by Dr. Soliz and myself, and refuses evaluation management plan surprise given the patient's stay. Patient presents from nursing facility initially got called for an arrest but he was not interested's could not get a pulse ox on him. Medics were unsuccessful getting a pulse ox or capnography. Patient is awake he does not seem to be alert person place or time but is having some back pain. No chest pain vitals were done except for pulse ox or anything else looked good he does have a dialysis shunt in his right arm trying to figure out when he dialyzes determine if he has a history of respiratory issues we do see on his assisted papers they have had a history of CHF in the past. We will review our EMR for his records. Start him on BiPAP get a ABG laboratory work and reassess he most likely will need admission. Chest X-Ray 05/09/17 17:41 IMPRESSION: Stable portable study. D/ / Chey May Cha, MD / Chey May Cha, MD Interpreting Provider: Chey May Cha, MD 0 hrs.: Patient's troponin is elevated. Looking back it is always elevated most likely due to his renal insufficiency does have an elevated lactate at 2.5. Discussed with him admission. - Lab Data Result diagrams: 05/09/17 20:03 05/09/17 20:03 Lab Results 05/09/17 05/09/17 05/09/17 Range/Units 20:03 20:03 20:03 WBC 13.3 H (4.3-11.1) K/mcL RBC 4.20 (4.19-5.50) M/mcL Hgb 12.7 L (12.9-16.9) g/dL Hct 39.6 (37.5-50.1) % MCV 94.3 (83.0-100.0) fL MCH 30.2 (28.0-33.3) pg MCHC 32.1 (31.6-35.5) g/dL RDW 15.9 H (11.5-14.5) % Plt Count 164 (140-400) K/mcL MPV 10.9 (9.4-12.4) fL Immature Gran % 0.4 (0-4) % Seg Neutrophils % 44.7 % Lymphocytes % 46.3 % Monocytes % 6.2 % Eosinophils % 2.0 % Basophils % 0.4 % Neutrophils # 6.0 (1.6-8.9) K/mcL Lymphocytes # 6.1 H (0.6-4.6) K/mcL Monocytes # 0.8 (0.0-1.3) K/mcL Eosinophils # 0.3 (0.0-0.6) K/mcL Basophils # 0.1 (0.0-0.2) K/mcL PT (9.4-12.1) Seconds INR VBG pH (7.32-7.42) pH Units VBG pCO2 (41-51) mmHg VBG pO2 (25-40) mmHg VBG HCO3 (21-27) mEq/L Sodium 142 (136-145) mEq/L Potassium 4.2 (3.5-4.5) mEq/L Chloride 91 L (98-109) mEq/L Carbon Dioxide 38 H (19-29) mEq/L BUN 34 H (8-26) mg/dL Creatinine 5.62 H (0.72-1.25) mg/dL Est GFR ( Amer) 12 L (> 60) Est GFR (Non-Af Amer) 10 L (> 60) BUN/Creatinine Ratio 6 (6-26) Glucose 112 H (70-99) mg/dL Calculated Osmolality 302 H (280-300) Lactic Acid 2.5 H (0.5-2.2) mmol/L Calcium 10.1 (8.6-10.8) mg/dL Total Bilirubin 0.5 (0.2-1.2) mg/dL AST 39 H (5-34) Units/L ALT 32 (0-55) Units/L Alkaline Phosphatase 123 (38-126) Units/L Troponin I (0-0.03) ng/mL B-Natriuretic Peptide (0-100) pg/mL Serum Total Protein 8.6 H (6.0-8.3) g/dL Albumin 3.3 L (3.5-5.0) g/dL Globulin 5.3 H (2.4-3.5) g/dL Albumin/Globulin Ratio 0.6 L (1.1-2.2) 05/09/17 05/09/17 05/09/17 Range/Units 20:03 20:03 20:03 WBC (4.3-11.1) K/mcL RBC (4.19-5.50) M/mcL Hgb (12.9-16.9) g/dL Hct (37.5-50.1) % MCV (83.0-100.0) fL MCH (28.0-33.3) pg MCHC (31.6-35.5) g/dL RDW (11.5-14.5) % Plt Count (140-400) K/mcL MPV (9.4-12.4) fL Immature Gran % (0-4) % Seg Neutrophils % % Lymphocytes % % Monocytes % % Eosinophils % % Basophils % % Neutrophils # (1.6-8.9) K/mcL Lymphocytes # (0.6-4.6) K/mcL Monocytes # (0.0-1.3) K/mcL Eosinophils # (0.0-0.6) K/mcL Basophils # (0.0-0.2) K/mcL PT (9.4-12.1) Seconds INR VBG pH 7.49 H (7.32-7.42) pH Units VBG pCO2 58 H (41-51) mmHg VBG pO2 26 (25-40) mmHg VBG HCO3 44.2 H (21-27) mEq/L Sodium (136-145) mEq/L Potassium (3.5-4.5) mEq/L Chloride (98-109) mEq/L Carbon Dioxide (19-29) mEq/L BUN (8-26) mg/dL Creatinine (0.72-1.25) mg/dL Est GFR ( Amer) (> 60) Est GFR (Non-Af Amer) (> 60) BUN/Creatinine Ratio (6-26) Glucose (70-99) mg/dL Calculated Osmolality (280-300) Lactic Acid (0.5-2.2) mmol/L Calcium (8.6-10.8) mg/dL Total Bilirubin (0.2-1.2) mg/dL AST (5-34) Units/L ALT (0-55) Units/L Alkaline Phosphatase (38-126) Units/L Troponin I 0.14 H* (0-0.03) ng/mL B-Natriuretic Peptide 196 H (0-100) pg/mL Serum Total Protein (6.0-8.3) g/dL Albumin (3.5-5.0) g/dL Globulin (2.4-3.5) g/dL Albumin/Globulin Ratio (1.1-2.2) 05/09/17 Range/Units 20:03 WBC (4.3-11.1) K/mcL RBC (4.19-5.50) M/mcL Hgb (12.9-16.9) g/dL Hct (37.5-50.1) % MCV (83.0-100.0) fL MCH (28.0-33.3) pg MCHC (31.6-35.5) g/dL RDW (11.5-14.5) % Plt Count (140-400) K/mcL MPV (9.4-12.4) fL Immature Gran % (0-4) % Seg Neutrophils % % Lymphocytes % % Monocytes % % Eosinophils % % Basophils % % Neutrophils # (1.6-8.9) K/mcL Lymphocytes # (0.6-4.6) K/mcL Monocytes # (0.0-1.3) K/mcL Eosinophils # (0.0-0.6) K/mcL Basophils # (0.0-0.2) K/mcL PT 11.1 (9.4-12.1) Seconds INR 1.0 VBG pH (7.32-7.42) pH Units VBG pCO2 (41-51) mmHg VBG pO2 (25-40) mmHg VBG HCO3 (21-27) mEq/L Sodium (136-145) mEq/L Potassium (3.5-4.5) mEq/L Chloride (98-109) mEq/L Carbon Dioxide (19-29) mEq/L BUN (8-26) mg/dL Creatinine (0.72-1.25) mg/dL Est GFR ( Amer) (> 60) Est GFR (Non-Af Amer) (> 60) BUN/Creatinine Ratio (6-26) Glucose (70-99) mg/dL Calculated Osmolality (280-300) Lactic Acid (0.5-2.2) mmol/L Calcium (8.6-10.8) mg/dL Total Bilirubin (0.2-1.2) mg/dL AST (5-34) Units/L ALT (0-55) Units/L Alkaline Phosphatase (38-126) Units/L Troponin I (0-0.03) ng/mL B-Natriuretic Peptide (0-100) pg/mL Serum Total Protein (6.0-8.3) g/dL Albumin (3.5-5.0) g/dL Globulin (2.4-3.5) g/dL Albumin/Globulin Ratio (1.1-2.2)
--- NOTE | 2017-05-09 17:51 | Emergency Department Note ---
Disposition Clinical Impression: Hypoxia, ESRD (end stage renal disease), Lactic acid acidosis Disposition: Admitted As Inpatient Condition: Good Time of Disposition: 21:16 SOB HPI - General Chief Complaint: ED Shortness of Breath/Dyspnea Stated Complaint: JESENIA Time Seen by Provider: 05/09/17 17:41 Source: EMS Mode of arrival: EMS Nursing Notes Reviewed: Yes Vital Signs Reviewed: Yes - History of Present Illness Patient presents to the ED via EMS for shortness of breath. According EMS, they were initially called to the nursing facility for a code. Patient has a history of end-stage renal disease is followed by Dr. Del Toro and maxi Monday, Monday, Monday. States he also has a history of congestive heart failure and per the chart. Atrial fibrillation. States that they checked on the patient today and although he was awake and alert. His pulse ox was in the 30s. EMS arrived and was unable to get a pulse ox at all. Patient was placed on a nonrebreather, although is in no acute distress. Presents to the emergency department in no acute distress. States that his mental status has been frequently fluctuating between being nonverbal and being aggravated which is the patient's baseline. He is reportedly in a nursing facility for sepsis and ESRD and is currently a full code. - Related Data Home Medications Medication Instructions Recorded Confirmed Budesonide/Formoterol 160/4.5 2 puff IH BIDR 09/22/16 05/09/17 [Symbicort 160/4.5] Quetiapine Fumarate [Seroquel] 50 mg GTUBE HS 04/05/17 05/09/17 Aspirin 81 mg GTUBE DAILY 05/09/17 05/09/17 Ipratropium/Albuterol Neb [Duoneb] 3 ml IH Q4H 05/09/17 05/09/17 Metoprolol [Lopressor] 25 mg GTUBE BID 05/09/17 05/09/17 Nut.tx.impaired Renal Fxn,Soy 237 ml GTUBE 5XD 05/09/17 05/09/17 [Nepro Carb Steady] Omeprazole [PriLOSEC] 40 mg GTUBE DAILY 05/09/17 05/09/17 Previous Rx's Medication Instructions Recorded Darbepoetin [Aranesp] 100 mcg SQ QWEEK #0 syringe 03/07/17 Cinacalcet [Sensipar] 30 mg PO DAILY tab 04/07/17 Allergies Allergy/AdvReac Type Severity Reaction Status Date / Time iodine Allergy Rash Verified 02/26/17 11:13 rofecoxib [From Vioxx] Allergy Swelling Verified 02/21/17 06:52 of Lip/Tongue/Throat Limitations: ROS unobtainable due to patients medical condition Past Medical History - Past Medical History Source: old records reviewed Medical history: Reports: aortic aneurysm, diabetes, dialysis, hyperlipidemia, hypertension, myocardial infarction, renal disease, other Surgical history: Reports: angioplasty/stent, cholecystectomy, other Psychiatric history: Reports: anxiety, depression - Social History Smoking Status: Smoker, status unknown Smokeless Tobacco Status: No Alcohol use: Reports: unknown Drug use: Reports: unknown Physical Exam - General Limitations: altered mental status, age General appearance: alert, in no apparent distress - Head Head exam: atraumatic, normocephalic, normal inspection - Eye Eye exam: Present: normal appearance, PERRL, scleral icterus - ENT ENT exam: mucous membranes dry - Respiratory Respiratory exam: Absent: normal lung sounds bilaterally (Extremely diminished breath sounds bilaterally, unable to auscultate any wheezes, rales or rhonchi) - Cardiovascular Cardiovascular exam: Present: regular rate, irregular rhythm - Abdominal Exam Abdominal exam: Present: soft, Non-Tender. Absent: tenderness, distention, guarding, rebound, rigidity - Extremities Exam Extremities exam: Present: other (Port in right upper extremity for dialysis). Absent: pedal edema - Neurological Exam Neurological exam: Present: alert, other (Patient nonverbal at this time. According EMS. This is his baseline) - Skin Skin exam: Present: warm, dry, intact, normal color Course Course Narrative: Patient presenting via EMS for low oxygen saturation. Patient appears in no acute distress, but has very diminished breath sounds. We will place on BiPAP get a blood gas labs and likely admitted. - Reevaluation(s) Reevaluation #1: Respiratory was called to the room and was able to obtain an oxygen saturation of 100% with good waveform. Patient remains in no acute distress. We will continue with as scheduled and will then decrease on rebreather to nasal cannula and continue to evaluate. Time: 17:53 Reevaluation #2: Patient tolerating nasal cannula well. Does admit elevated lactic acidosis. Slight leukocytosis. Chest x-ray showing some chronic pulmonary hypertension, which could have explained his transient hypoxia. We will admit for observation and dialysis in the morning. Vital Signs Temperature 98.2 F 05/09/17 17:46 Pulse Rate 74 05/09/17 17:46 Respiratory Rate 20 05/09/17 17:46 Blood Pressure 135/86 05/09/17 17:46 O2 Sat by Pulse Oximetry 100 05/09/17 17:46 Temperature 98.2 F 05/09/17 17:46 Pulse Rate 79 05/09/17 19:50 Respiratory Rate 18 05/09/17 19:50 Blood Pressure 138/83 05/09/17 19:50 O2 Sat by Pulse Oximetry 100 05/09/17 19:50 Oxygen Delivery Oxygen Delivery Room Air Shortness of Breath/Dyspnea - Medical Records Medical records reviewed: Yes I reviewed the patient's medical records. - Lab Data Lab results reviewed: Yes I reviewed the patient's lab results. Result diagrams: 05/09/17 20:03 05/09/17 20:03 Lab Results 05/09/17 05/09/17 05/09/17 Range/Units 20:03 20:03 20:03 WBC 13.3 H (4.3-11.1) K/mcL RBC 4.20 (4.19-5.50) M/mcL Hgb 12.7 L (12.9-16.9) g/dL Hct 39.6 (37.5-50.1) % MCV 94.3 (83.0-100.0) fL MCH 30.2 (28.0-33.3) pg MCHC 32.1 (31.6-35.5) g/dL RDW 15.9 H (11.5-14.5) % Plt Count 164 (140-400) K/mcL MPV 10.9 (9.4-12.4) fL Immature Gran % 0.4 (0-4) % Seg Neutrophils % 44.7 % Lymphocytes % 46.3 % Monocytes % 6.2 % Eosinophils % 2.0 % Basophils % 0.4 % Neutrophils # 6.0 (1.6-8.9) K/mcL Lymphocytes # 6.1 H (0.6-4.6) K/mcL Monocytes # 0.8 (0.0-1.3) K/mcL Eosinophils # 0.3 (0.0-0.6) K/mcL Basophils # 0.1 (0.0-0.2) K/mcL PT (9.4-12.1) Seconds INR VBG pH (7.32-7.42) pH Units VBG pCO2 (41-51) mmHg VBG pO2 (25-40) mmHg VBG HCO3 (21-27) mEq/L Sodium 142 (136-145) mEq/L Potassium 4.2 (3.5-4.5) mEq/L Chloride 91 L (98-109) mEq/L Carbon Dioxide 38 H (19-29) mEq/L BUN 34 H (8-26) mg/dL Creatinine 5.62 H (0.72-1.25) mg/dL Est GFR ( Amer) 12 L (> 60) Est GFR (Non-Af Amer) 10 L (> 60) BUN/Creatinine Ratio 6 (6-26) Glucose 112 H (70-99) mg/dL Calculated Osmolality 302 H (280-300) Lactic Acid 2.5 H (0.5-2.2) mmol/L Calcium 10.1 (8.6-10.8) mg/dL Total Bilirubin 0.5 (0.2-1.2) mg/dL AST 39 H (5-34) Units/L ALT 32 (0-55) Units/L Alkaline Phosphatase 123 (38-126) Units/L Troponin I (0-0.03) ng/mL B-Natriuretic Peptide (0-100) pg/mL Serum Total Protein 8.6 H (6.0-8.3) g/dL Albumin 3.3 L (3.5-5.0) g/dL Globulin 5.3 H (2.4-3.5) g/dL Albumin/Globulin Ratio 0.6 L (1.1-2.2) 05/09/17 05/09/17 05/09/17 Range/Units 20:03 20:03 20:03 WBC (4.3-11.1) K/mcL RBC (4.19-5.50) M/mcL Hgb (12.9-16.9) g/dL Hct (37.5-50.1) % MCV (83.0-100.0) fL MCH (28.0-33.3) pg MCHC (31.6-35.5) g/dL RDW (11.5-14.5) % Plt Count (140-400) K/mcL MPV (9.4-12.4) fL Immature Gran % (0-4) % Seg Neutrophils % % Lymphocytes % % Monocytes % % Eosinophils % % Basophils % % Neutrophils # (1.6-8.9) K/mcL Lymphocytes # (0.6-4.6) K/mcL Monocytes # (0.0-1.3) K/mcL Eosinophils # (0.0-0.6) K/mcL Basophils # (0.0-0.2) K/mcL PT (9.4-12.1) Seconds INR VBG pH 7.49 H (7.32-7.42) pH Units VBG pCO2 58 H (41-51) mmHg VBG pO2 26 (25-40) mmHg VBG HCO3 44.2 H (21-27) mEq/L Sodium (136-145) mEq/L Potassium (3.5-4.5) mEq/L Chloride (98-109) mEq/L Carbon Dioxide (19-29) mEq/L BUN (8-26) mg/dL Creatinine (0.72-1.25) mg/dL Est GFR ( Amer) (> 60) Est GFR (Non-Af Amer) (> 60) BUN/Creatinine Ratio (6-26) Glucose (70-99) mg/dL Calculated Osmolality (280-300) Lactic Acid (0.5-2.2) mmol/L Calcium (8.6-10.8) mg/dL Total Bilirubin (0.2-1.2) mg/dL AST (5-34) Units/L ALT (0-55) Units/L Alkaline Phosphatase (38-126) Units/L Troponin I 0.14 H* (0-0.03) ng/mL B-Natriuretic Peptide 196 H (0-100) pg/mL Serum Total Protein (6.0-8.3) g/dL Albumin (3.5-5.0) g/dL Globulin (2.4-3.5) g/dL Albumin/Globulin Ratio (1.1-2.2) 05/09/17 Range/Units 20:03 WBC (4.3-11.1) K/mcL RBC (4.19-5.50) M/mcL Hgb (12.9-16.9) g/dL Hct (37.5-50.1) % MCV (83.0-100.0) fL MCH (28.0-33.3) pg MCHC (31.6-35.5) g/dL RDW (11.5-14.5) % Plt Count (140-400) K/mcL MPV (9.4-12.4) fL Immature Gran % (0-4) % Seg Neutrophils % % Lymphocytes % % Monocytes % % Eosinophils % % Basophils % % Neutrophils # (1.6-8.9) K/mcL Lymphocytes # (0.6-4.6) K/mcL Monocytes # (0.0-1.3) K/mcL Eosinophils # (0.0-0.6) K/mcL Basophils # (0.0-0.2) K/mcL PT 11.1 (9.4-12.1) Seconds INR 1.0 VBG pH (7.32-7.42) pH Units VBG pCO2 (41-51) mmHg VBG pO2 (25-40) mmHg VBG HCO3 (21-27) mEq/L Sodium (136-145) mEq/L Potassium (3.5-4.5) mEq/L Chloride (98-109) mEq/L Carbon Dioxide (19-29) mEq/L BUN (8-26) mg/dL Creatinine (0.72-1.25) mg/dL Est GFR ( Amer) (> 60) Est GFR (Non-Af Amer) (> 60) BUN/Creatinine Ratio (6-26) Glucose (70-99) mg/dL Calculated Osmolality (280-300) Lactic Acid (0.5-2.2) mmol/L Calcium (8.6-10.8) mg/dL Total Bilirubin (0.2-1.2) mg/dL AST (5-34) Units/L ALT (0-55) Units/L Alkaline Phosphatase (38-126) Units/L Troponin I (0-0.03) ng/mL B-Natriuretic Peptide (0-100) pg/mL Serum Total Protein (6.0-8.3) g/dL Albumin (3.5-5.0) g/dL Globulin (2.4-3.5) g/dL Albumin/Globulin Ratio (1.1-2.2) - Radiology Data Radiology results reviewed: Yes I reviewed the patient's radiology results. - EKG Data EKG attestation: Yes I reviewed and interpreted this EKG. EKG results narrative: Ectopic atrial rhythm, rate 79, CT interval 231, QRS 128, QTC 494, nonspecific ST-T wave changes with a slightly different morphology from previous on 2016, but no acute ischemic changes.
[2017-05-09 20:11] LABS: Basophils # 0.1 K/mcL (0.0-0.2); Basophils % 0.4 %; Eosinophils # 0.3 K/mcL (0.0-0.6); Hematocrit 39.6 % (37.5-50.1); Hemoglobin 12.7 g/dL (12.9-16.9); Immature Granulocytes % 0.4 % (0-4); Lymphocytes # 6.1 K/mcL (0.6-4.6); Lymphocytes % 46.3 %; Mean Corpuscular HGB Conc 32.1 g/dL (31.6-35.5); Mean Corpuscular Hemoglobin 30.2 pg (28.0-33.3); Mean Corpuscular Volume 94.3 fL (83.0-100.0); Mean Platelet Volume 10.9 fL (9.4-12.4); Monocytes # 0.8 K/mcL (0.0-1.3); Monocytes % 6.2 %; Platelet Count 164 K/mcL (140-400); Red Cell Distribution Width 15.9 % (11.5-14.5); Segmented Neutrophils % 44.7 %
[2017-05-09 20:16] LABS: VBG HCO3 44.2 mEq/L (21-27); VBG PH 7.49 pH Units (7.32-7.42)
[2017-05-09 20:24] LABS: Albumin 3.3 g/dL (3.5-5.0); Albumin/Globulin Ratio 0.6 (1.1-2.2); Bilirubin,Total 0.5 mg/dL (0.2-1.2); Calcium 10.1 mg/dL (8.6-10.8); Globulin 5.3 g/dL (2.4-3.5); Potassium 4.2 mEq/L (3.5-4.5); Prothrombin Time 11.1 Seconds (9.4-12.1); Total Protein 8.6 g/dL (6.0-8.3)
[2017-05-09] MEDS ORDERED: 0.9 % Sodium Chloride 1,000 ML IVC SCH (21:00)
--- NOTE | 2017-05-09 22:28 | Internal Med History&Physical ---
<Alec Booker - Last Filed: 05/09/17 23:58> Date of Encounter: 05/09/17 Time of Encounter: 22:30 Assessment and Plan (1) Elevated white blood cell count Current visit: No Status: Acute Patient reportedly had a hypoxic incident at the [facility] which he resides. EMS arrived and found oxygen saturation be 30%. Patient has shown to have oxygen saturation 100% on nasal cannula. Chest x-ray was negative, but lactic acid was 2.5. Currently unsure if leukocytosis related to hypoxic incident ( stress reaction) or represents possible infection. No bandemia seen in increases in white blood cell count appear to be lymphocyte driven. Possible differentials are infectious (potentially viral) or stress reaction. Given patient inability to assist in history and history of bacteremia, will treat empirically. We will continue IV fluids started in the emergency room We will start empiric ceftriaxone as this appeared to be beneficial during last hospitalization, but likely stress first viral infection for which antibiotics not be helpful We will continue home medications Tylenol as needed for fever Will obtain UA, if possible Qualifiers: Leukocytosis type: unspecified Qualified Code(s): D72.829 - Elevated white blood cell count, unspecified (2) Hypoxia Current visit: No Status: Acute Patient reportedly had incident of hypoxia at the [facility], EMS found oxygen saturation be 30%. Since presentation patient oxygen saturation has been 100% with nasal cannula. Unsure if patient uses nasal cannula at home. Chest x-ray showed no acute findings. Leukocytosis seen, as was increased hemoglobin suggestive of hemoconcentration. Continue nasal cannula for supplemental oxygen as needed, wean as tolerated Consider empiric ceftriaxone Breathing treatments when necessary with duo nebs Continue home Symbicort Continue to monitor via pulse oximetry (3) ESRD on dialysis Current visit: No Status: Chronic Hemodialysis patient of Dr. Del Toro reportedly receives dialysis Monday and Monday. Patient will likely require dialysis tomorrow. We will consult nephrology for hemodialysis Avoid nephrotoxic medications Renally dose medication We will continue to monitor renal function and electrolytes daily labs (4) Anoxic brain injury Current visit: No Status: Chronic Patient has history of anoxic brain injury stemming from cardiac arrest suffered in January due to incident with Klebsiella bacteremia. Patient has known history of fluctuating between verbal, nonverbal, and belligerent. (5) Diabetes mellitus Current visit: No Status: Chronic Patient has reported history of diabetes mellitus type 2. Previous glucose seen in routine lab work have only shown mild elevations. We will add before meals at bedtime Accu-Cheks with low-dose sliding scale correction Qualifiers: Diabetes mellitus type: type 2 Diabetes mellitus complication status: with unspecified complications Diabetes mellitus jail insulin use: without jail use Qualified Code(s): E11.8 - Type 2 diabetes mellitus with unspecified complications (6) History of bacteremia Current visit: No Status: Resolved Patient has previous history of Klebsiella bacteremia on 02/11. Present with leukocytosis and no other SIRS criteria met We will consider addition of ceftriaxone empirically (7) DVT prophylaxis Current visit: No Status: Acute 40 mg Lovenox subcutaneous daily (8) Elevated troponin level Current visit: No Status: Chronic Patient is end-stage renal disease patient on hemodialysis, has chronically elevated troponins. Current troponin is 0.14 she is about normal for him. No concerning signs for ischemia were seen on EKG. We will continue telemetry Internal Medicine - H&P: HPI Chief complaint: Hypoxia Admitted From: Long-term Nursing Facility Plans for Post Hospital Care: Transfer [facility] History of present illness: Mr. Hernandez is a 71 year old male with past medical history of an anoxic brain injury, ESRD on HD (Monday, rn l and d Dr. Del Toro), diabetes mellitus, pulmonary hypertension, CHF (last echo 03/13 showed EF 50-55%) , atrial fibrillation and CAD who was brought to [place] by EMS from his [facility] facility. Patient is unable to contribute due to his mental status , EMS was called by the nursing facility because of concern of cardiac arrest. When they arrived the facility they found patient awake, alert, but hypoxic with pulse ox reading at 30% oxygen saturation and was being uncooperative with medical exams at that time. Apparently, patient has history of frequently fluctuating mental status of nonverbal, verbal, and belligerent. Patient to be admitted for concern of hypoxia. Chest x-ray was negative for acute findings, patient has mild leukocytosis with no other SIRS criteria, patient has maintained adequate oxygen saturations on nasal cannula (unsure if patient uses nasal cannula at home). Healed laceration in the hospital in mid March with discharge on 04/10/17 aftertreatment for epistaxis, ESRD on HD, and sequela of anoxic brain injury. He received empiric ceftriaxone and was discharged with by mouth antibiotics at that time. Past Med Surg Social Fam HX - Past Medical History Medical history: aortic aneurysm, diabetes, dialysis, hyperlipidemia, hypertension, myocardial infarction, renal disease, other Psychiatric history: anxiety, depression - Past Surgical History Surgical History: angioplasty/stent, cholecystectomy, other - Social History Smoking Status: Smoker, status unknown Smokeless Tobacco Status: No Alcohol use: unknown Drug use: unknown - Family History Mother Hx Family Cardiac Disorders: Yes (HTN) Father Adopted: No Living Status: Hx Family Cardiac Disorders: Yes (HTN) Hx Family Respiratory Disorders: No Hx Family Cancer: Yes Hx Family GI Disorders: No Hx Family Endocrine Disorder: No Hx Family Neuromuscular Disorders: No Hx Family Neurologic Disorders: No Hx Family HEENT Disorders: No Hx Family Autoimmune Disorders: No Internal Medicine - H&P: Meds Budesonide/Formoterol 160/4.5 [Symbicort 160/4.5] 2 puff IH BIDR 09/22/16 [ History] Darbepoetin [Aranesp] 100 mcg SQ QWEEK #0 syringe 03/07/17 [Rx] Quetiapine Fumarate [Seroquel] 50 mg GTUBE HS 04/05/17 [History] Cinacalcet [Sensipar] 30 mg PO DAILY tab 04/07/17 [Rx] Aspirin 81 mg GTUBE DAILY 05/09/17 [History] Ipratropium/Albuterol Neb [Duoneb] 3 ml IH Q4H 05/09/17 [History] Metoprolol [Lopressor] 25 mg GTUBE BID 05/09/17 [History] Nut.tx.impaired Renal Fxn,Soy [Nepro Carb Steady] 237 ml GTUBE 5XD 05/09/17 [ History] Omeprazole [PriLOSEC] 40 mg GTUBE DAILY 05/09/17 [History] 3 Allergy/AdvReac Type Severity Reaction Status Date / Time iodine Allergy Rash Verified 02/26/17 11:13 rofecoxib [From Vioxx] Allergy Swelling Verified 02/21/17 06:52 of Lip/Tongue/Throat ROS unobtainable: due to mental status - Constitutional Vitals: Temp Pulse Resp BP Pulse Ox 98.2 F 79 18 136/77 100 05/09/17 17:46 05/09/17 19:50 05/09/17 22:00 05/09/17 22:00 05/09/17 19:50 Exam: General: Cooperative, pleasant, no acute distress, alert and oriented 1-2, answers questions appropriately (but unsure of accuracy) HEENT: Normocephalic, atraumatic, neck supple, trachea midline, conjunctiva injected, PERRL, oral mucosa moist, no orophargeal erythema or exudates Respiratory: No accessory muscle usage, clear to auscultation bilaterally, no wheezes/rhonchi/rales appreciated Cardiovascular: Regular rate and rhythm, S1 and S2 present, no murmurs/rubs/ gallops/clicks appreciated GI/abdominal: Nondistended, nontender, soft, normal bowel sounds, no peritoneal signs Extremities: No calf tenderness, noncyanotic, no pedal edema appreciated, warm, lower extremity pulses palpable and symmetrical, bilateral feet dry with flaking skin Neurological: Alert and oriented 3, no facial droop, no focal deficits Skin: Dry, intact, normal color Internal Med - H&P Results - Labs CBC & Chem 7: 05/09/17 20:03 05/09/17 20:03 <Carlyle Rivas - Last Filed: 05/10/17 01:46> Date of Encounter: 05/10/17 Internal Medicine - H&P: HPI History of present illness: Mr. Hernandez is a 71 year old male All Systems PM: A 10-system review of systems was performed and is negative for pertinent findings except as documented above in the HPI. - Constitutional Vitals: Temp Pulse Resp BP Pulse Ox 98.4 F 85 18 130/93 100 05/09/17 22:45 05/09/17 22:45 05/10/17 00:30 05/09/17 22:45 05/10/17 00:30 Internal Med - H&P Results - Labs CBC & Chem 7: 05/09/17 20:03 05/09/17 20:03 - Attending Attestation I examined this patient and my medical decision-making was reviewed with the Resident Physician. I agree with the documented findings, disposition and treatment plan as described except to the extent set forth below. Patient is a 71-year-old male with past medical history of aortic aneurysm, diabetes, ESRD on dialysis, hyperlipidemia, hypertension, anxiety, depression and probable dementia. He presents to the ED from long-term nursing facility for hypoxia. He has been found to have elevated white count and elevated lactic acid. Patient's troponin is chronically elevated. At present patient denies chest pain or shortness of breath. He is awake and alert. He is oriented 2. Patient likely has dementia. He is unable to provide any other history at this time. Patient saturation of approximately 30% initially. He was on BiPAP and then switched to nasal cannula. At present patient is comfortable and not in any distress. Patient will be dialyzed in the morning. Temperature 98.4, heart rate 85, blood pressure 130/93, O2 sat 100% on 2 L. Heart S1-S2 positive. Lungs bilaterally good air entry no wheeze or crackle. Abdomen soft nontender. Neurological awake and alert and oriented 2, able to move all extremities, able to verbalize and follows simple commands
[2017-05-09] MEDS ORDERED: Naloxone 0.4 MG/ML INJ IVP PRN (23:05)
[2017-05-09] MEDS ORDERED: Ondansetron 4 MG/2 ML VIAL IVP PRN (23:05)
[2017-05-09] MEDS ORDERED: Acetaminophen 325 MG TABLET PO PRN (23:05)
[2017-05-10] MEDS ORDERED: NON-FORMULARY MEDICATION 1 EACH EACH (Nut.Tx.Impaired Renal Fxn,Soy [Nepro Carb Steady] 23 GTUBE SCH
[2017-05-10] MEDS ORDERED: Dextrose Gel 15 GM PO PRN ×2 (00:04)
[2017-05-10] MEDS ORDERED: D5% in Water 1,000 ML IVC PRN (00:04)
[2017-05-10] MEDS ORDERED: *HR* Dextrose 50 % in Water (Syg) 50 ML SYRINGE IVP PRN (00:04)
[2017-05-10] MEDS: Ipratropium/Albuterol Neb 3 ML IH SCH ×7 (00:27→20:44)
[2017-05-10] MEDS: 0.9 % Sodium Chloride 1,000 ML IVC SCH ×2 (02:40→12:43)
[2017-05-10 05:40] LABS: Basophils % 0.3 %; Eosinophils # 0.1 K/mcL (0.0-0.6); Eosinophils % 0.7 %; Hematocrit 36.8 % (37.5-50.1); Immature Granulocytes % 0.6 % (0-4); Lymphocytes # 3.4 K/mcL (0.6-4.6); Lymphocytes % 28.7 %; Mean Corpuscular HGB Conc 32.6 g/dL (31.6-35.5); Mean Corpuscular Hemoglobin 30.2 pg (28.0-33.3); Mean Corpuscular Volume 92.7 fL (83.0-100.0); Mean Platelet Volume 10.7 fL (9.4-12.4); Monocytes # 0.8 K/mcL (0.0-1.3); Monocytes % 7.1 %; Neutrophils # 7.4 K/mcL (1.6-8.9); Platelet Count 160 K/mcL (140-400); Red Blood Count 3.97 M/mcL (4.19-5.50); Red Cell Distribution Width 15.3 % (11.5-14.5); Segmented Neutrophils % 62.6 %
[2017-05-10 05:57] LABS: Calcium 10.1 mg/dL (8.6-10.8); Magnesium 1.8 mg/dL (1.6-2.6); Phosphorous 1.1 mg/dL (2.3-4.7); Potassium 3.7 mEq/L (3.5-4.5)
[2017-05-10] MEDS: Pantoprazole 40 MG VIAL IVP SCH (06:29)
[2017-05-10] MEDS ORDERED: *HR* Enoxaparin 40 MG/0.4 ML SYRINGE SQ SCH (07:00)
[2017-05-10] MEDS: Budesonide/Formoterol 160/4.5 MDI IH SCH ×3 (07:39→20:45)
[2017-05-10] MEDS: Aspirin 81 MG TAB.CHEW GTUBE SCH (08:25)
[2017-05-10] MEDS: Insulin LISPRO 300 UNITS/3 ML VIAL SQ SCH ×4 (08:25→21:42)
--- NOTE | 2017-05-10 08:39 | Nephrology Consult Note ---
Date of Encounter: 05/10/17 Time of Encounter: 08:37 Assessment and Plan (1) ESRD on dialysis Current Visit: No Status: Chronic Patient will undergo dialysis today. His phosphorus is 1.1. We will make sure he is not on a phosphorus binder and recheck his phosphorus as well. It is 12. He does not need Aranesp currently. (2) Diabetes Current Visit: No Status: Chronic Qualifiers: Diabetes mellitus type: type 2 Diabetes mellitus complication status: with kidney complications Diabetes mellitus complication detail: with chronic kidney disease Diabetes mellitus skilled nursing insulin use: without skilled nursing use Chronic kidney disease stage: on chronic dialysis Qualified Code(s): E11.22 - Type 2 diabetes mellitus with diabetic chronic kidney disease; N18.6 - End stage renal disease; Z99.2 - Dependence on renal dialysis (3) Atrial fibrillation Current Visit: No Status: Chronic Qualifiers: Atrial fibrillation type: paroxysmal Qualified Code(s): I48.0 - Paroxysmal atrial fibrillation (4) CAD (coronary artery disease) Current Visit: No Status: Chronic Qualifiers: Coronary Disease-Associated Artery/Lesion type: [place] artery [place] vs. transplanted heart: [place] heart Associated angina: without angina Qualified Code(s): I25.10 - Atherosclerotic heart disease of [place] coronary artery without angina pectoris (5) Hypoxia Current Visit: No Status: Acute History of Present Illness - History of Present Illness This is a 71-year-old male with end-stage renal disease. He receives dialysis in [place] every Monday. Patient has anoxic encephalopathy from her previous cardiopulmonary arrest while in the hospital during a previous admission. He is unable to give any history. History is obtained from the medical record. According to the medical record the patient was noted to be hypoxic at the retirement. He subsequently was sent to the emergency room for further evaluation. Here in the hospital he has not demonstrated any hypoxia. His chest x-ray is unremarkable. The patient has no complaints. Specifically he denies any shortness of breath. He says in general he feels well. His vital signs been stable. He is scheduled for his usual dialysis today. Past Med Surg Social Fam HX - Past Medical History Medical history: aortic aneurysm, diabetes, dialysis, hyperlipidemia, hypertension, myocardial infarction, renal disease, other Psychiatric history: anxiety, depression - Past Surgical History Surgical History: angioplasty/stent, cholecystectomy, other - Social History Smoking Status: Smoker, status unknown Smokeless Tobacco Status: No Alcohol use: unknown Drug use: unknown - Family History Mother Hx Family Cardiac Disorders: Yes (HTN) Father Adopted: No Living Status: Hx Family Cardiac Disorders: Yes (HTN) Hx Family Respiratory Disorders: No Hx Family Cancer: Yes Hx Family GI Disorders: No Hx Family Endocrine Disorder: No Hx Family Neuromuscular Disorders: No Hx Family Neurologic Disorders: No Hx Family HEENT Disorders: No Hx Family Autoimmune Disorders: No Medications and Allergies Budesonide/Formoterol 160/4.5 [Symbicort 160/4.5] 2 puff IH BIDR 09/22/16 [ History] Darbepoetin [Aranesp] 100 mcg SQ QWEEK #0 syringe 03/07/17 [Rx] Quetiapine Fumarate [Seroquel] 50 mg GTUBE HS 04/05/17 [History] Cinacalcet [Sensipar] 30 mg PO DAILY tab 04/07/17 [Rx] Aspirin 81 mg GTUBE DAILY 05/09/17 [History] Ipratropium/Albuterol Neb [Duoneb] 3 ml IH Q4H 05/09/17 [History] Metoprolol [Lopressor] 25 mg GTUBE BID 05/09/17 [History] Nut.tx.impaired Renal Fxn,Soy [Nepro Carb Steady] 237 ml GTUBE 5XD 05/09/17 [ History] Omeprazole [PriLOSEC] 40 mg GTUBE DAILY 05/09/17 [History] 3 Allergy/AdvReac Type Severity Reaction Status Date / Time iodine Allergy Rash Verified 02/26/17 11:13 rofecoxib [From Vioxx] Allergy Swelling Verified 02/21/17 06:52 of Lip/Tongue/Throat Review of Systems ROS unobtainable: due to mental status Exam - Vital Signs Vital signs: Initial Vital Signs Temp Pulse Resp BP Pulse Ox 98.2 F 74 20 135/86 100 05/09/17 17:46 05/09/17 17:46 05/09/17 17:46 05/09/17 17:46 05/09/17 17:46 - General Appearance Exam: Patient is alert but not completely oriented. He does have some rambling speech. Vital signs are stable. Lungs symmetric breath sounds otherwise clear. Heart regular rate and rhythm with a 2/6 ejection murmur. Abdomen is protuberant. Bowel sounds are present. No masses or megaly or tenderness. There is no lower extremity swelling. There is a functioning AV fistula in the right upper extremity. Results - Lab Results 05/10/17 05:07 05/10/17 05:07 Most recent lab results Calcium 10.1 mg/dL (8.6-10.8) 05/10/17 05:07 Phosphorus 1.1 mg/dL (2.3-4.7) L 05/10/17 05:07 Magnesium 1.8 mg/dL (1.6-2.6) 05/10/17 05:07 Consult Discharge Plan - Plan Referrals: Jermain Chicas MD [Primary Care Provider] -
[2017-05-10] MEDS ORDERED: 0.9 % Sodium Chloride 250 ML IVC PRN (08:40)
[2017-05-10 10:30] LABS: Hepatitis B Surface Antibody 0.51 mIU/mL; Hepatitis B Surface Antigen Nonreactive (Nonreactive)
--- NOTE | 2017-05-10 12:28 | Internal Med Progress Note ---
Date of Encounter: 05/11/17 Time of Encounter: 12:26 - Assessment and plan (1) ESRD on dialysis Current Visit: Yes Status: Chronic (2) Diabetes Current Visit: Yes Status: Chronic Qualifiers: Diabetes mellitus type: type 2 Diabetes mellitus complication status: with kidney complications Diabetes mellitus complication detail: with chronic kidney disease Diabetes mellitus shelter insulin use: without digital cartographic technician use Chronic kidney disease stage: on chronic dialysis Qualified Code(s): E11.22 - Type 2 diabetes mellitus with diabetic chronic kidney disease; N18.6 - End stage renal disease; Z99.2 - Dependence on renal dialysis (3) Atrial fibrillation Current Visit: Yes Status: Chronic Qualifiers: Atrial fibrillation type: paroxysmal Qualified Code(s): I48.0 - Paroxysmal atrial fibrillation (4) CAD (coronary artery disease) Current Visit: Yes Status: Chronic Qualifiers: Coronary Disease-Associated Artery/Lesion type: [place] artery [place] vs. transplanted heart: [place] heart Associated angina: without angina Qualified Code(s): I25.10 - Atherosclerotic heart disease of [place] coronary artery without angina pectoris (5) COPD exacerbation Current Visit: No Status: Acute (6) Anoxic brain injury Current Visit: No Status: Chronic - Subjective Interval history: Mr. Jabier Hernandez is a 71-year-old patient with anoxic brain injury. He has past medical history significant for diabetes hypertension dyslipidemia coronary artery disease status post PTCA, atrial fibrillation, ESRD. [facility] in [facility] after he was found hypoxemic on oxygen saturation which was in 30s. Chest x-ray was reported negative. He is admitted for further evaluation. He underwent dialysis this morning and his nephrology's( checking in correcting his electrolyte imbalance. He is not on antibiotics - Constitutional Vitals: Temp Pulse Resp BP Pulse Ox 98.2 F 94 18 113/63 100 05/10/17 12:00 05/10/17 12:00 05/10/17 12:00 05/10/17 12:00 05/10/17 12:00 - Head Head exam: Present: atraumatic, normocephalic - Eye Eye exam: Present: PERRL, conjuntiva pink, sclera anicteric Pupils: Present: PERRL - Neck Neck exam general surgery: Present: supple, trachea midline. Absent: lymphadenopathy - Respiratory Respiratory exam: Present: CTAB. Absent: accessory muscle use, rales, rhonchi, wheezes - Cardiovascular Cardiovascular exam: Present: RRR, +S1, +S2. Absent: diastolic murmur, gallop, rubs, systolic murmur - GI/Abdominal GI/Abdominal exam: Present: normal bowel sounds, soft, no peritoneal signs. Absent: distended, tenderness - Extremities Exam Extremities exam: Present: warm, radial pulses palpable and symmetrical. Absent : calf tenderness, cyanotic, pedal edema - Neurological Exam Neurological exam: Present: CN II-XII intact, oriented X3, no focal deficits. Absent: pronater drift, facial droop, speech deficit - Skin Skin exam: Present: dry, intact Internal Medicine: Result - Labs CBC & Chem 7: 05/11/17 00:21 05/11/17 00:21 - ABG Interpretation ABG results: PT/INR, D-dimer PT 11.1 Seconds (9.4-12.1) 05/09/17 20:03 Consult Discharge Plan - Plan Referrals: Jermain Chicas MD [Primary Care Provider] -
[2017-05-10] MEDS ORDERED: *HR* LORazepam 2 MG/ML VIAL IVP ONE (15:40)
[2017-05-10] MEDS: *HR* Heparin 5,000 UNIT/ML VIAL SQ SCH (16:00)
--- NOTE | 2017-05-10 16:09 | Electrocardiograph Report ---
[address] [place], [place] [address] Test Date: 2017-05-09 Pat Name: Jabier Hernandez Department: 105 Room: 2N09 Gender: M Outpatient Physical Therapist: TOBY : 1945 Requested By: Damion Roca Order Number: [id number] Reading MD: Troy Abdi MD Measurements Intervals [place] Rate: 79 P: 145 CO: 231 QRS: -39 QRSD: 128 T: 146 QT: 459 QTc: 494 Interpretive Statements SINUS RHYTHM WITH FIRST DEGREE AV BLOCK INFERIOR MYOCARDIAL INFARCTION, PROBABLY OLD LATERAL ISCHEMIA BASELINE ARTIFACT COMPLICATES ACCURATE INTERPRETATION Electronically Signed On 05-10-2017 16:07:25 EDT by Troy Abdi MD
[2017-05-10] MEDS ORDERED: 0.9 % Sodium Chloride 2,000 ML ONE (18:43)
[2017-05-11] MEDS: Ipratropium/Albuterol Neb 3 ML IH SCH ×7 (00:24→23:48)
[2017-05-11 00:46] LABS: Basophils % 0.4 %; Eosinophils # 0.1 K/mcL (0.0-0.6); Eosinophils % 1.5 %; Hematocrit 37.6 % (37.5-50.1); Hemoglobin 12.3 g/dL (12.9-16.9); Immature Granulocytes % 0.5 % (0-4); Immature Platelets 6.5 % (1.1-6.1); Lymphocytes # 3.2 K/mcL (0.6-4.6); Lymphocytes % 33.9 %; Mean Corpuscular HGB Conc 32.7 g/dL (31.6-35.5); Mean Corpuscular Hemoglobin 30.4 pg (28.0-33.3); Mean Corpuscular Volume 93.1 fL (83.0-100.0); Monocytes # 0.6 K/mcL (0.0-1.3); Monocytes % 5.8 %; Neutrophils # 5.5 K/mcL (1.6-8.9); Platelet Count 156 K/mcL (140-400); Red Blood Count 4.04 M/mcL (4.19-5.50); Red Cell Distribution Width 15.6 % (11.5-14.5); Segmented Neutrophils % 57.9 %
[2017-05-11 03:32] LABS: Albumin 3.2 g/dL (3.5-5.0); Albumin/Globulin Ratio 0.6 (1.1-2.2); Calcium 9.5 mg/dL (8.6-10.8); Magnesium 1.8 mg/dL (1.6-2.6); Potassium 4.2 mEq/L (3.5-4.5); Total Protein 8.2 g/dL (6.0-8.3)
[2017-05-11 04:25] LABS: Bilirubin,Total 0.8 mg/dL (0.2-1.2); Phosphorous 3.1 mg/dL (2.3-4.7)
[2017-05-11] MEDS: *HR* Heparin 5,000 UNIT/ML VIAL SQ SCH ×2 (06:01→15:35)
[2017-05-11] MEDS: Pantoprazole 40 MG VIAL IVP SCH (06:02)
[2017-05-11] MEDS: Budesonide/Formoterol 160/4.5 MDI IH SCH ×2 (07:48→20:00)
[2017-05-11] MEDS: Aspirin 81 MG TAB.CHEW GTUBE SCH (08:33)
[2017-05-11] MEDS: Insulin LISPRO 300 UNITS/3 ML VIAL SQ SCH ×4 (08:33→21:49)
--- NOTE | 2017-05-11 09:34 | Nephrology Progress Note ---
Date of Encounter: 05/11/17 Time of Encounter: 09:20 - Assessment and Plan (1) ESRD on dialysis Current Visit: Yes Status: Chronic ESRD. HD tomorrow, keeping MWF schedule. Recheck phos 3.1. Subjective Interval history: Laying in bed, no respiratory difficulties noted. Denies shortness of breath. No new complaints. Objective - Vital Signs Vital signs: Vital Signs Temp Pulse Resp BP Pulse Ox 05/11/17 08:35 97.7 F 74 14 113/60 99 05/11/17 08:00 97.7 F 74 14 113/60 05/11/17 07:53 19 99 05/11/17 04:04 97.4 F L 77 19 125/102 99 05/11/17 00:07 97.5 F L 75 20 120/73 94 05/10/17 20:48 16 100 05/10/17 19:41 97.7 F 78 18 109/80 98 05/10/17 16:50 97.8 F 18 137/69 05/10/17 16:48 97.6 F 86 20 82/38 05/10/17 16:45 97.6 F 86 20 82/38 98 05/10/17 16:30 141/80 05/10/17 16:00 130/80 05/10/17 15:30 110/62 05/10/17 15:00 117/69 05/10/17 14:30 141/81 05/10/17 14:00 97.2 F L 18 119/78 05/10/17 12:00 98.2 F 94 18 113/63 100 05/10/17 11:12 98.2 F 94 18 113/63 100 Intake and Output 05/10/17 05/11/17 05/11/17 23:59 07:59 15:59 Intake Total 30 / 30 120 / 120 Output Total 1858 0 / 0 Balance -1829 / -182 120 / 120 Intake: Oral 0 / 0 120 / 120 Free Water 30 / 30 Free Water Intake Amount 0 / 0 0 / 0 Output: Urine 0 / 0 0 / 0 Gastric Tube Lavage 0 / 0 0 / 0 Amount Mid Upper Abdomen 0 / 0 0 / 0 Total Dialysis (HD) 1858 Output Other: Weight 85.2 kg Blood Glucose* 90 60 Hemodialysis Net Fluid 1259 Removed (mL) Patient Weight 05/11/17 23:59 Weight 85.2 kg - General Appearance General appearance: Present: well-developed, well-nourished, appears started age EENT: Present: mucous membranes moist Neck: Present: no JVD Respiratory: Present: clear Cardiology: Present: no edema, irregular rhythm Gastrointestinal: Present: normoactive bowel sounds, no tenderness Integumentary: Present: warm and dry Psychiatric: Present: mood/affect appropriate, cooperative - Lab 05/11/17 00:21 05/11/17 00:21 Most recent lab results Calcium 9.5 mg/dL (8.6-10.8) 05/11/17 00:21 Phosphorus 3.1 mg/dL (2.3-4.7) D 05/11/17 00:21 Magnesium 1.8 mg/dL (1.6-2.6) 05/11/17 00:21 Consult Discharge Plan - Plan Referrals: Jermain Chicas MD [Primary Care Provider] -
--- NOTE | 2017-05-11 13:36 | Discharge Summary ---
Date of Encounter: 05/11/17 Time of Encounter: 13:33 - Discharge Diagnosis (1) ESRD on dialysis Priority: Primary Status: Chronic (2) Diabetes Priority: Secondary Status: Chronic Qualifiers: Diabetes mellitus type: type 2 Diabetes mellitus complication status: with kidney complications Diabetes mellitus complication detail: with chronic kidney disease Diabetes mellitus care home insulin use: without manager terminal use Chronic kidney disease stage: on chronic dialysis Qualified Code(s): E11.22 - Type 2 diabetes mellitus with diabetic chronic kidney disease; N18.6 - End stage renal disease; Z99.2 - Dependence on renal dialysis (3) Atrial fibrillation Priority: Secondary Status: Chronic Qualifiers: Atrial fibrillation type: paroxysmal Qualified Code(s): I48.0 - Paroxysmal atrial fibrillation (4) CAD (coronary artery disease) Priority: Secondary Status: Chronic Qualifiers: Coronary Disease-Associated Artery/Lesion type: [place] artery [place] vs. transplanted heart: [place] heart Associated angina: without angina Qualified Code(s): I25.10 - Atherosclerotic heart disease of [place] coronary artery without angina pectoris (5) COPD exacerbation Priority: Secondary Status: Acute (6) Anoxic brain injury Priority: Secondary Status: Chronic - Discharge Medications Home Medications: Budesonide/Formoterol 160/4.5 [Symbicort 160/4.5] 2 puff IH BIDR 09/22/16 [ History] Darbepoetin [Aranesp] 100 mcg SQ QWEEK #0 syringe 03/07/17 [Rx] Quetiapine Fumarate [Seroquel] 50 mg GTUBE HS 04/05/17 [History] Cinacalcet [Sensipar] 30 mg PO DAILY tab 04/07/17 [Rx] Aspirin 81 mg GTUBE DAILY 05/09/17 [History] Ipratropium/Albuterol Neb [Duoneb] 3 ml IH Q4H 05/09/17 [History] Metoprolol [Lopressor] 25 mg GTUBE BID 05/09/17 [History] Nut.tx.impaired Renal Fxn,Soy [Nepro Carb Steady] 237 ml GTUBE 5XD 05/09/17 [ History] Omeprazole [PriLOSEC] 40 mg GTUBE DAILY 05/09/17 [History] Allergies/Adverse Reactions: 3 Allergy/AdvReac Type Severity Reaction Status Date / Time iodine Allergy Rash Verified 02/26/17 11:13 rofecoxib [From Vioxx] Allergy Swelling Verified 02/21/17 06:52 of Lip/Tongue/Throat Date of admission: 05/09/17 21:08 Primary care physician: Jermain Chicas MD Consults: 05/09/17 23:05 Consult to Nephrology [CONS] Routine Consulting Provider: [facility] Ethan STEVENSON Reason for Consult: Known patient of Dr. Stevenson. MWF HD patient. Will likely need HD tomorrow Call Completed: No 05/10/17 08:45 Consult to Dialysis [CONS] ONCE Discharging clinician: Yarely Perez Anticipated date of discharge: 05/11/17 - Patient Status Disposition: Transfer SNF Condition: Good Overall status at discharge: patient is progressing back to baseline - Discharge Instructions Follow Up With: Jermain Chicas MD [Primary Care Provider] - - Diet and Activity Activity: resume usual activities as tolerated Diet: advance to your usual diet Hospital course: Mr. Jabier Hernandez is a 71-year-old patient with anoxic brain injury. He has past medical history significant for diabetes hypertension dyslipidemia coronary artery disease status post PTCA, atrial fibrillation, COPD and ESRD. [facility] after he was found hypoxemic on oxygen saturation which was in 30s. Chest x-ray was reported negative. He was started on nebulizers but no antibiotics were started. Chest x-ray was reported negative. No signs of infection noted. As he did the dialysis his oxygen saturation has improved and probably he was fluid overloaded. At this time is without oxygen seems quite comfortable breathing well and can be discharged prison. - Time Spent with Patient Total time spent providing and/or coordinating discharge services: Greater than 30 minutes - Constitutional Vitals: Temp Pulse Resp BP Pulse Ox 97.6 F 72 14 100/64 97 05/11/17 12:00 05/11/17 12:00 05/11/17 12:00 05/11/17 12:00 05/11/17 12:00 General appearance: Present: pleasant, no acute distress, answers questions appropriately Exam: Pleasantly confused awake and follows commands and answers simple questions move all extremities DTRs symmetrical plantars downward bilaterally - Head Head exam: Present: atraumatic, normocephalic - Eye Eye exam: Present: PERRL, conjuntiva pink, sclera anicteric Pupils: Present: PERRL - Neck Neck exam general surgery: Present: supple, trachea midline. Absent: lymphadenopathy - Respiratory Respiratory exam: Present: CTAB. Absent: accessory muscle use, rales, rhonchi, wheezes - Cardiovascular Cardiovascular exam: Present: RRR, +S1, +S2. Absent: diastolic murmur, gallop, rubs, systolic murmur - GI/Abdominal GI/Abdominal exam: Present: normal bowel sounds, soft, no peritoneal signs. Absent: distended, tenderness - Extremities Exam Extremities exam: Present: warm, radial pulses palpable and symmetrical. Absent : calf tenderness, cyanotic, pedal edema - Neurological Exam Neurological exam: Present: alert, CN II-XII intact, no focal deficits. Absent : pronater drift, facial droop, speech deficit - Skin Skin exam: Present: dry, intact
--- NOTE | 2017-05-11 13:43 | Physician Discharge Referral ---
ExtendedCare Referral Info Transfer To: snf Provider in Charge: faisal Provider in Charge after Transfer: PCP Institutional Level of Care: Skilled - Diagnosis (1) ESRD on dialysis Status: Chronic (2) Diabetes Status: Chronic (3) Atrial fibrillation Status: Chronic (4) CAD (coronary artery disease) Status: Chronic (5) COPD exacerbation Status: Acute (6) Anoxic brain injury Status: Chronic - Transfer Medications Home Medications: Budesonide/Formoterol 160/4.5 [Symbicort 160/4.5] 2 puff IH BIDR 09/22/16 [ History] Darbepoetin [Aranesp] 100 mcg SQ QWEEK #0 syringe 03/07/17 [Rx] Quetiapine Fumarate [Seroquel] 50 mg GTUBE HS 04/05/17 [History] Cinacalcet [Sensipar] 30 mg PO DAILY tab 04/07/17 [Rx] Aspirin 81 mg GTUBE DAILY 05/09/17 [History] Ipratropium/Albuterol Neb [Duoneb] 3 ml IH Q4H 05/09/17 [History] Metoprolol [Lopressor] 25 mg GTUBE BID 05/09/17 [History] Nut.tx.impaired Renal Fxn,Soy [[place] Carb Steady] 237 ml GTUBE 5XD 05/09/17 [ History] Omeprazole [PriLOSEC] 40 mg GTUBE DAILY 05/09/17 [History] Allergies/Adverse Reactions: 3 Allergy/AdvReac Type Severity Reaction Status Date / Time iodine Allergy Rash Verified 02/26/17 11:13 rofecoxib [From Vioxx] Allergy Swelling Verified 02/21/17 06:52 of Lip/Tongue/Throat - Respiratory Orders Smoking Cessation: Smoking cessation has been advised. For more information, call the [place] Tobacco Quit Line at 9-138-DYBG-NOW. - Rehabiliation Orders Rehab Potential: Fair Rehab Orders: Evaluation for Physical Therapy - Treatments Skin tear care topically daily PRN per policy, May check for fecal impaction rectally daily PRN, Fleet enema rectally every other day PRN cleansing purposes - Diet Orders Renal, Cardiac CERTIFICATION: I certify that the transfer of the above named patient to an Extended Care Facility is necessary for the continuing treatment of the diagnosis listed. The above information is true and accurate reflection of patient's current condition. Confidential - Redisclosure prohibited without a patient's written consent.
[2017-05-12 00:51] LABS: Basophils % 0.3 %; Eosinophils # 0.1 K/mcL (0.0-0.6); Eosinophils % 0.9 %; Hematocrit 40.3 % (37.5-50.1); Immature Granulocytes % 0.5 % (0-4); Lymphocytes # 3.5 K/mcL (0.6-4.6); Lymphocytes % 26.2 %; Mean Corpuscular HGB Conc 32.3 g/dL (31.6-35.5); Mean Corpuscular Hemoglobin 30.3 pg (28.0-33.3); Mean Corpuscular Volume 93.9 fL (83.0-100.0); Mean Platelet Volume 11.2 fL (9.4-12.4); Monocytes # 0.6 K/mcL (0.0-1.3); Monocytes % 4.5 %; Nucleated Red Blood Cells 0.2 /100 WBC (0); Platelet Count 181 K/mcL (140-400); Red Blood Count 4.29 M/mcL (4.19-5.50); Red Cell Distribution Width 15.4 % (11.5-14.5); Segmented Neutrophils % 67.6 %
[2017-05-12 01:06] LABS: Calcium 10.1 mg/dL (8.6-10.8); Magnesium 2.1 mg/dL (1.6-2.6); Potassium 4.2 mEq/L (3.5-4.5)
[2017-05-12 01:07] LABS: Albumin 3.5 g/dL (3.5-5.0); Albumin/Globulin Ratio 0.6 (1.1-2.2); Bilirubin,Total 0.8 mg/dL (0.2-1.2); Calcium 10.1 mg/dL (8.6-10.8); Globulin 5.5 g/dL (2.4-3.5); Phosphorous 2.5 mg/dL (2.3-4.7); Potassium 4.3 mEq/L (3.5-4.5)
[2017-05-12] MEDS: *HR* Heparin 5,000 UNIT/ML VIAL SQ SCH ×2 (05:05→16:58)
[2017-05-12] MEDS: Pantoprazole 40 MG VIAL IVP SCH (05:05)
[2017-05-12] MEDS: Ipratropium/Albuterol Neb 3 ML IH SCH ×4 (06:19→16:32)
[2017-05-12] MEDS: Insulin LISPRO 300 UNITS/3 ML VIAL SQ SCH ×3 (07:45→16:58)
[2017-05-12] MEDS: Budesonide/Formoterol 160/4.5 MDI IH SCH (07:56)
[2017-05-12] MEDS ORDERED: 0.9 % Sodium Chloride 250 ML IVC PRN (08:44)
[2017-05-12] MEDS ORDERED: 0.9 % Sodium Chloride 1,000 ML PRIME SCH (08:45)
--- NOTE | 2017-05-12 09:04 | Internal Med Progress Note ---
Date of Encounter: 05/12/17 Time of Encounter: 09:01 - Assessment and plan (1) ESRD on dialysis Current Visit: Yes Status: Chronic (2) Diabetes Current Visit: Yes Status: Chronic Qualifiers: Diabetes mellitus type: type 2 Diabetes mellitus complication status: with kidney complications Diabetes mellitus complication detail: with chronic kidney disease Diabetes mellitus retirement insulin use: without predatory animal exterminator use Chronic kidney disease stage: on chronic dialysis Qualified Code(s): E11.22 - Type 2 diabetes mellitus with diabetic chronic kidney disease; N18.6 - End stage renal disease; Z99.2 - Dependence on renal dialysis (3) Atrial fibrillation Current Visit: Yes Status: Chronic Qualifiers: Atrial fibrillation type: paroxysmal Qualified Code(s): I48.0 - Paroxysmal atrial fibrillation (4) CAD (coronary artery disease) Current Visit: Yes Status: Chronic Qualifiers: Coronary Disease-Associated Artery/Lesion type: [place] artery [place] vs. transplanted heart: [place] heart Associated angina: without angina Qualified Code(s): I25.10 - Atherosclerotic heart disease of [place] coronary artery without angina pectoris (5) COPD exacerbation Current Visit: No Status: Acute (6) Anoxic brain injury Current Visit: No Status: Chronic - Subjective Interval history: Mr. Jabier Hernandez is a 71-year-old patient with anoxic brain injury. He has past medical history significant for diabetes hypertension dyslipidemia coronary artery disease status post PTCA, atrial fibrillation, ESRD. He was brought in from care home after he was found hypoxemic on oxygen saturation which was in 30s. Chest x-ray was reported negative on admission. He was admitted for further evaluation. He underwent dialysis next morning and his nephrology's checking in correcting his electrolyte imbalance. This morning patient white count has gone up and it is 13,000 now and last night he had an episode of 13 beat nonsustained VT. His potassium and magnesium is satisfactory. We will consult cardiology and make sure that patient is on beta parminder. Repeat chest x-ray and white count and have started him on IV Zosyn for now. Discharge canceled. Due to his underlying anoxic encephalopathy patient could provide very little details. - Constitutional Vitals: Temp Pulse Resp BP Pulse Ox 97.7 F 83 18 154/78 90 05/12/17 07:45 05/12/17 07:45 05/12/17 07:45 05/12/17 07:45 05/12/17 07:45 General appearance: Present: pleasant, no acute distress, answers questions appropriately - Head Head exam: Present: atraumatic, normocephalic - Eye Eye exam: Present: PERRL, conjuntiva pink, sclera anicteric Pupils: Present: PERRL - Neck Neck exam general surgery: Present: supple, trachea midline. Absent: lymphadenopathy - Respiratory Respiratory exam: Present: CTAB. Absent: accessory muscle use, rales, rhonchi, wheezes - Cardiovascular Cardiovascular exam: Present: RRR, +S1, +S2. Absent: diastolic murmur, gallop, rubs, systolic murmur - GI/Abdominal GI/Abdominal exam: Present: normal bowel sounds, soft, no peritoneal signs. Absent: distended, tenderness - Extremities Exam Extremities exam: Present: warm, radial pulses palpable and symmetrical. Absent : calf tenderness, cyanotic, pedal edema - Neurological Exam Neurological exam: Present: CN II-XII intact, oriented X3, no focal deficits. Absent: pronater drift, facial droop, speech deficit - Skin Skin exam: Present: dry, intact Internal Medicine: Result - Labs CBC & Chem 7: 05/12/17 00:42 05/12/17 00:42 Labs: Short CBC 05/12/17 Range/Units 00:42 WBC 13.2 H (4.3-11.1) K/mcL Hgb 13.0 (12.9-16.9) g/dL Hct 40.3 (37.5-50.1) % Plt Count 181 (140-400) K/mcL Neutrophils # 9.0 H (1.6-8.9) K/mcL BMP 05/12/17 05/12/17 00:42 00:42 Sodium 139 139 Potassium 4.3 4.2 Chloride 96 L 95 L Carbon Dioxide 26 25 BUN 42 H D 42 H Creatinine 6.97 H 6.92 H Glucose 83 83 Calcium 10.1 10.1 Liver Function 05/12/17 Range/Units 00:42 Total Bilirubin 0.8 (0.2-1.2) mg/dL AST 31 (5-34) Units/L ALT 25 (0-55) Units/L Alkaline Phosphatase 122 (38-126) Units/L Albumin 3.5 (3.5-5.0) g/dL - ABG Interpretation ABG results: PT/INR, D-dimer PT 11.1 Seconds (9.4-12.1) 05/09/17 20:03 Consult Discharge Plan - Plan Instructions: Diabetes Mellitus Type 2 in Adults (DC) Referrals: Jermain Chicas MD [Primary Care Provider] -
--- NOTE | 2017-05-12 09:38 | Nephrology Progress Note ---
Date of Encounter: 05/12/17 Time of Encounter: 09:25 - Assessment and Plan (1) ESRD on dialysis Current Visit: Yes Status: Chronic ESRD. HD today, keeping MWF schedule. Orders given. Subjective Interval history: Laying in bed, no respiratory difficulties noted. Denies shortness of breath. No new complaints. Pleasantly confused. Objective - Vital Signs Vital signs: Vital Signs Temp Pulse Resp BP Pulse Ox 05/12/17 07:45 97.7 F 83 18 154/78 90 05/12/17 04:02 97.5 F L 81 19 97/66 05/11/17 23:04 98.2 F 88 19 101/65 95 05/11/17 20:30 97.4 F L 83 19 103/62 95 05/11/17 19:59 16 95 05/11/17 15:42 97.6 F 68 14 124/88 95 05/11/17 12:00 97.6 F 72 14 100/64 97 05/11/17 10:49 97.6 F 72 14 100/64 97 Intake and Output 05/11/17 05/12/17 05/12/17 23:59 07:59 15:59 Intake Total 250 / 250 Balance 250 / 250 Intake: Oral 200 / 200 Free Water Intake Amount 50 / 50 Other: Weight 82.6 kg Blood Glucose* 79 Patient Weight 05/12/17 23:59 Weight 82.6 kg - General Appearance General appearance: Present: well-developed, well-nourished, appears started age EENT: Present: mucous membranes moist Neck: Present: no JVD Respiratory: Present: clear Cardiology: Present: no edema, irregular rhythm Gastrointestinal: Present: normoactive bowel sounds, no tenderness Integumentary: Present: warm and dry Psychiatric: Present: mood/affect appropriate, cooperative - Lab 05/12/17 00:42 05/12/17 00:42 Most recent lab results Calcium 10.1 mg/dL (8.6-10.8) 05/12/17 00:42 Phosphorus 2.5 mg/dL (2.3-4.7) 05/12/17 00:42 Magnesium 2.0 mg/dL (1.6-2.6) 05/12/17 00:42 Consult Discharge Plan - Plan Instructions: Diabetes Mellitus Type 2 in Adults (DC) Referrals: Jermain Chicas MD [Primary Care Provider] -
[2017-05-12] MEDS: Aspirin 81 MG TAB.CHEW GTUBE SCH (10:00)
--- NOTE | 2017-05-12 11:51 | Cardiology Consult Note ---
Date of Encounter: 05/12/17 Time of Encounter: 11:30 Assessment and Plan (1) SVT (supraventricular tachycardia) Current Visit: Yes Status: Acute Cardiology consulted for suspected episode of NSVT. Reviewed telemetry strip with Dr. Smooth Singh, felt to be SVT with abberation. Patient was asymptomatic. Will increase betablocker. TTE February 2017 demonstrated preserved LVEF 55%. No further cardiac testing warranted at this time. (2) Atrial fibrillation Current Visit: Yes Status: Chronic Hx of PAF. SR upon exam. Previously anticoagulted on coumadin; however stopped several months ago due to chikis hemoptysis per review of records. Qualifiers: Atrial fibrillation type: paroxysmal Qualified Code(s): I48.0 - Paroxysmal atrial fibrillation (3) CAD (coronary artery disease) Current Visit: Yes Status: Chronic Hx of CAD s/p remote history of PCI. Patient denies chest pain or discomfort. Mild troponin elevation likely secondary to demand ischemia due to acute hypoxia ; non-diagnostic in the setting of ESRD. Of note, troponin levels are chronically elevated. Continue medical therapy including asa and betablocker. Will add statin. Qualifiers: Coronary Disease-Associated Artery/Lesion type: [place] artery [place] vs. transplanted heart: [place] heart Associated angina: without angina Qualified Code(s): I25.10 - Atherosclerotic heart disease of [place] coronary artery without angina pectoris Discussion w patient/family: The assessment and plan as outlined above was discussed with the patient and/or family members who expressed understanding and agreement. All questions were answered. Thank you for involving us in the care of your patient. Please call with any questions. History of Present Illness Consult date: 05/12/17 Requesting physician: Yarely Perez Consult reason: NSVT Chief complaint: Hypoxia History of present illness: Mr. Hernandez is a 71 year old male with PMHx significant for DMII, ESRD on HD, PAF , anoxic brain injury, and CAD with remote PCI who presented to [facility] from SNF due to hypoxia; SPO2 was reportedly 30%. No concerning ECG changes noted upon arrival--similar to previous ECG. Cardiology consulted today for concern of arrhythmia seen overnight per telemetry review. Please note HPI/PMHx obtained from H&P and old medical records as patient is not able to provide any information due to history of anoxic brain injury. He has no complaints upon exam. Prior CV testing: TTE 02/25/17: LVEF 55%, severely dilated LA/RA, severe PH (est RVSP 65 mmHg), mildly dilated RV with mild reduction in function, no significant valvular dysfunction. Past Med Surg Social Fam HX - Past Medical History Source: old records reviewed Medical history: aortic aneurysm, atrial fibrillation, coronary artery disease, diabetes, dialysis, hyperlipidemia, hypertension, myocardial infarction, renal disease Psychiatric history: anxiety, depression - Past Surgical History Surgical History: angioplasty/stent, cholecystectomy, other - Social History Smoking Status: Smoker, status unknown Smokeless Tobacco Status: No Alcohol use: unknown Drug use: unknown - Family History Mother Hx Family Cardiac Disorders: Yes (HTN) Father Adopted: No Living Status: Hx Family Cardiac Disorders: Yes (HTN) Hx Family Respiratory Disorders: No Hx Family Cancer: Yes Hx Family GI Disorders: No Hx Family Endocrine Disorder: No Hx Family Neuromuscular Disorders: No Hx Family Neurologic Disorders: No Hx Family HEENT Disorders: No Hx Family Autoimmune Disorders: No Medications and Allergies Budesonide/Formoterol 160/4.5 [Symbicort 160/4.5] 2 puff IH BIDR 09/22/16 [ History] Darbepoetin [Aranesp] 100 mcg SQ QWEEK #0 syringe 03/07/17 [Rx] Quetiapine Fumarate [Seroquel] 50 mg GTUBE HS 04/05/17 [History] Cinacalcet [Sensipar] 30 mg PO DAILY tab 04/07/17 [Rx] Aspirin 81 mg GTUBE DAILY 05/09/17 [History] Ipratropium/Albuterol Neb [Duoneb] 3 ml IH Q4H 05/09/17 [History] Metoprolol [Lopressor] 25 mg GTUBE BID 05/09/17 [History] Nut.tx.impaired Renal Fxn,Soy [Nepro Carb Steady] 237 ml GTUBE 5XD 05/09/17 [ History] Omeprazole [PriLOSEC] 40 mg GTUBE DAILY 05/09/17 [History] 3 Allergy/AdvReac Type Severity Reaction Status Date / Time iodine Allergy Rash Verified 02/26/17 11:13 rofecoxib [From Vioxx] Allergy Swelling Verified 02/21/17 06:52 of Lip/Tongue/Throat All Systems Review: A 10-system review of systems was performed and is negative for pertinent findings except as documented above in the HPI. - Cardiovascular Cardiovascular: as per HPI Physical Examination General: Conversant, No Apparent Distress HEENT: Atraumatic, Normocephaly Cardiac: Reg Rate and Rhythm, Normal S1 and S2 Lungs: Other (bibasilar diminished) Neuro: Alert and responsive Abdomen: Soft Skin: No rashes noted on visualized skin Musculoskeletal: No Chest Wall Tenderness Extremities: No Edema, Normal Pulses Results 05/12/17 00:42 05/12/17 00:42 Lab Results 05/12/17 05/12/17 05/12/17 00:42 00:42 00:42 WBC 13.2 H Hgb 13.0 Hct 40.3 Plt Count 181 Sodium 139 139 Potassium 4.3 4.2 Chloride 96 L 95 L Carbon Dioxide 26 25 BUN 42 H D 42 H Creatinine 6.97 H 6.92 H Glucose 83 83 Calcium 10.1 10.1 Magnesium 2.0 2.1 Total Bilirubin 0.8 AST 31 ALT 25 Alkaline Phosphatase 122 Active Medications Acetaminophen (Tylenol) 650 mg PO Q6HR PRN PRN Reason: Mild Pain or fever Stop: 11/08/17 23:06 Albuterol/Ipratropium (Duoneb) 3 ml IH [id number] [facility] Stop: 11/09/17 00:01 Last Admin: 05/12/17 11:21 Dose: Not Given Amoxicillin/Clavulanate Potassium (Augmentin) 875 mg PO BIDWM [facility] Stop: 05/26/17 17:01 Aspirin (Aspirin) 81 mg GTUBE DAILY [facility] Stop: 11/09/17 09:01 Last Admin: 05/11/17 08:33 Dose: 81 mg Budesonide/Formoterol Fumarate (Symbicort) 2 puff IH BIDR [facility] PRN Reason: Protocol Stop: 11/09/17 10:01 Last Admin: 05/12/17 07:56 Dose: Not Given Cinacalcet (Sensipar) 30 mg PO DAILY [facility] Stop: 11/09/17 09:01 Last Admin: 05/11/17 08:33 Dose: 30 mg Dextrose/Water (Dextrose 50% (Syg)) 25 ml IVP AD PRN PRN Reason: Hypoglycemia Stop: 11/09/17 00:05 Docusate Sodium (Colace) 100 mg PO BID PRN PRN Reason: Constipation Stop: 11/08/17 23:06 Last Admin: 05/11/17 08:33 Dose: 100 mg Glucagon (Glucagen) 1 mg IM ONCE PRN PRN Reason: Hypoglycemia Stop: 11/09/17 00:05 Glucose (Gluctose) 15 gm PO ONCE PRN PRN Reason: Hypoglycemia Stop: 11/09/17 00:05 Glucose (Gluctose) 30 gm PO ONCE PRN PRN Reason: Hypoglycemia Stop: 11/09/17 00:05 Heparin Sodium (Porcine) (Heparin) 5,000 unit SQ Q12H [facility] Stop: 11/09/17 15:31 Last Admin: 05/12/17 05:05 Dose: 5,000 unit Dextrose (Dextrose 5%) 1,000 mls @ 100 mls/hr IVC .Q10H PRN PRN Reason: HYPOGLYCEMIA Stop: 11/09/17 00:05 Insulin Human Lispro (Humalog) 0 units SQ HS [facility] PRN Reason: Protocol Stop: 11/09/17 21:01 Last Admin: 05/11/17 21:49 Dose: Not Given Insulin Human Lispro (Humalog) 0 units SQ TIDAC [facility] PRN Reason: Protocol Stop: 11/09/17 07:31 Last Admin: 05/12/17 07:45 Dose: Not Given Metoprolol Tartrate (Lopressor) 25 mg GTUBE BID [facility] Stop: 11/09/17 09:01 Last Admin: 05/11/17 21:49 Dose: 25 mg Naloxone HCl (Narcan) 0.4 mg IVP Q2MIN PRN PRN Reason: Opioid Reversal Stop: 11/08/17 23:06 Ondansetron HCl (Zofran) 4 mg IVP Q8HR PRN PRN Reason: Nausea And Vomiting Stop: 11/08/17 23:06 Pantoprazole Sodium (Protonix) 40 mg IVP 0630 [facility] Stop: 11/09/17 06:31 Last Admin: 05/12/17 05:05 Dose: Not Given Quetiapine Fumarate (Seroquel) 50 mg GTUBE HS [facility] Stop: 11/09/17 21:01 Last Admin: 05/11/17 21:49 Dose: 50 mg - Imaging and Cardiology Echo: report reviewed Other Results: Telemetry reviewed. - EKG Interpretation EKG results cardiology: personally reviewed Consult Discharge Plan - Plan Instructions: Diabetes Mellitus Type 2 in Adults (DC) Referrals: Jermain Chicas MD [Primary Care Provider] -
[2017-05-12 12:17] LABS: Bilirubin,Urine Negative (Negative); Blood,Urine Negative (Negative); Clarity,Urine Clear (Clear); Color,Urine Yellow (Yellow); Glucose,Urine (UA) Normal (Normal); Ketones,Urine Negative (Negative); Leukocyte Esterase,Urine Negative (Negative); Nitrite,Urine Negative (Negative); Protein,Urine Negative (Neg-Trace); Specific Gravity,Urine 1.012 (1.010-1.025); Urobilinogen,Urine Normal (Normal)
[2017-05-12] MEDS ORDERED: *HR* LORazepam 2 MG/ML VIAL IVP ONE (13:06)
[2017-05-12] MEDS ORDERED: 0.9 % Sodium Chloride 2,000 ML ONE (13:26)
[2017-05-12] MEDS ORDERED: Piperacillin/Tazobactam 3.375 GM in D5% in Water (Mini-Bag+) 100 ML IVPB SCH (16:00)
--- NOTE | 2017-05-12 16:11 | Discharge Summary ---
Date of Encounter: 05/12/17 Time of Encounter: 16:06 - Discharge Diagnosis (1) ESRD on dialysis Priority: Secondary Status: Chronic (2) Diabetes Priority: Secondary Status: Chronic Qualifiers: Diabetes mellitus type: type 2 Diabetes mellitus complication status: with kidney complications Diabetes mellitus complication detail: with chronic kidney disease Diabetes mellitus halfway insulin use: without halfway use Chronic kidney disease stage: on chronic dialysis Qualified Code(s): E11.22 - Type 2 diabetes mellitus with diabetic chronic kidney disease; N18.6 - End stage renal disease; Z99.2 - Dependence on renal dialysis (3) Atrial fibrillation Priority: Secondary Status: Chronic Qualifiers: Atrial fibrillation type: paroxysmal Qualified Code(s): I48.0 - Paroxysmal atrial fibrillation (4) CAD (coronary artery disease) Priority: Secondary Status: Chronic Qualifiers: Coronary Disease-Associated Artery/Lesion type: [place] artery [place] vs. transplanted heart: [place] heart Associated angina: without angina Qualified Code(s): I25.10 - Atherosclerotic heart disease of [place] coronary artery without angina pectoris (5) COPD exacerbation Priority: Primary Status: Acute (6) Anoxic brain injury Priority: Secondary Status: Chronic - Discharge Medications Home Medications: Budesonide/Formoterol 160/4.5 [Symbicort 160/4.5] 2 puff IH BIDR 09/22/16 [ History] Darbepoetin [Aranesp] 100 mcg SQ QWEEK #0 syringe 03/07/17 [Rx] Quetiapine Fumarate [Seroquel] 50 mg GTUBE HS 04/05/17 [History] Cinacalcet [Sensipar] 30 mg PO DAILY tab 04/07/17 [Rx] Aspirin 81 mg GTUBE DAILY 05/09/17 [History] Ipratropium/Albuterol Neb [Duoneb] 3 ml IH Q4H 05/09/17 [History] Nut.tx.impaired Renal Fxn,Soy [Nepro Carb Steady] 237 ml GTUBE 5XD 05/09/17 [ History] Omeprazole [PriLOSEC] 40 mg GTUBE DAILY 05/09/17 [History] Amoxicillin/Clavulanate [Augmentin] 500 mg PO DAILY@1700 tab 05/12/17 [Rx] Atorvastatin [Lipitor] 40 mg PO HS tab 05/12/17 [Rx] Metoprolol [Lopressor] 50 mg GTUBE BID tab 05/12/17 [Rx] Allergies/Adverse Reactions: 3 Allergy/AdvReac Type Severity Reaction Status Date / Time iodine Allergy Rash Verified 02/26/17 11:13 rofecoxib [From Vioxx] Allergy Swelling Verified 02/21/17 06:52 of Lip/Tongue/Throat Procedures/tests Complete & Pending: Procedures Performed prior 72 hours Category Date Time Status EKG [ECG 12 lead ECG] [ECG] Stat Y 05/11/17 22:42 Completed Date of admission: 05/09/17 21:08 Primary care physician: Jermain Chicas MD Consults: 05/09/17 23:05 Consult to Nephrology [CONS] Routine Consulting Provider: [facility] Ethan STEVENSON Reason for Consult: Known patient of Dr. Stevenson. MWF HD patient. Will likely need HD tomorrow Call Completed: No 05/10/17 08:45 Consult to Dialysis [CONS] ONCE 05/12/17 07:50 Consult to Nutrition [CONS] Routine Comment: poor nutritional intake Consulting Provider: NUTRITION Reason for Dietary Consult: MST Score 05/12/17 08:45 Consult to Dialysis [CONS] ONCE 05/12/17 08:46 Consult to Cardiology [CONS] Routine Comment: Consulting Provider: Cardiology Caroline Reason for Consult: Nonsustained VT 13 beat Time Notified: 08:47 Call Completed: No 05/12/17 09:50 Consult to Speech Therapy [CONS] Routine Comment: Evaluate, develop and implement POC Reason for Consult: possible aspiration Call Completed: No Discharging clinician: Yarely Perez Anticipated date of discharge: 05/12/17 - Patient Status Disposition: Transfer SNF Condition: Good Overall status at discharge: patient is progressing back to baseline - Discharge Instructions Instructions: Diabetes Mellitus Type 2 in Adults (DC) Follow Up With: Jermain Chicas MD [Primary Care Provider] - - Diet and Activity Activity: resume usual activities as tolerated Diet: advance to your usual diet Hospital course: Mr. Jabier Hernandez is a 71-year-old patient with anoxic brain injury. He has past medical history significant for diabetes hypertension dyslipidemia coronary artery disease status post PTCA, atrial fibrillation, ESRD. He was brought in from snf after he was found hypoxemic on oxygen saturation which was in 30s. Chest x-ray was reported negative on admission. He was admitted for further evaluation. He underwent dialysis next morning his conveyor technician was consulted. Today his white cell count is elevated in the range of 13,000 patient is quite asymptomatic and seems pretty stable. Chest x- ray repeated which is negative for pneumonia or any acute cardiopulmonary process. Patient had an episode of of SVT which resolved spontaneously. Electrolytes were checked which were normal including both magnesium and potassium. Cardiology was consulted. Patient had a recent echocardiogram which showed ejection fraction in the range of 65% without any significant wall motion abnormality or valvular abnormality. Cardiology has increased beta parminder and statin and asked to let patient go snf. I will add a short course of Augmentin. Patient will follow evaluated and be taken care of by snf doctor. We did get swallowing evaluation for patient and it was suggested that he can take puree with nectar thick though he does have a PEG tube - Time Spent with Patient Total time spent providing and/or coordinating discharge services: Greater than 30 minutes - Constitutional Vitals: Temp Pulse Resp BP Pulse Ox 97.6 F 107 18 156/84 90 05/12/17 13:45 05/12/17 13:31 05/12/17 13:45 05/12/17 14:29 05/12/17 13:31 General appearance: Present: pleasant, no acute distress, answers questions appropriately - Head Head exam: Present: atraumatic, normocephalic - Eye Eye exam: Present: PERRL, conjuntiva pink, sclera anicteric Pupils: Present: PERRL - Neck Neck exam general surgery: Present: supple, trachea midline. Absent: lymphadenopathy - Respiratory Respiratory exam: Present: CTAB. Absent: accessory muscle use, rales, rhonchi, wheezes - Cardiovascular Cardiovascular exam: Present: RRR, +S1, +S2. Absent: diastolic murmur, gallop, rubs, systolic murmur - GI/Abdominal GI/Abdominal exam: Present: normal bowel sounds, soft, no peritoneal signs. Absent: distended, tenderness - Extremities Exam Extremities exam: Present: warm, radial pulses palpable and symmetrical. Absent : calf tenderness, cyanotic, pedal edema - Neurological Exam Neurological exam: Present: CN II-XII intact, no focal deficits. Absent: pronater drift, facial droop, speech deficit Additional comments: Anoxic encephalopathy, patient is awake and follow commands and answer simple questions only - Skin Skin exam: Present: dry, intact
--- NOTE | 2017-05-12 16:21 | Physician Discharge Referral ---
ExtendedCare Referral Info Transfer To: Snf Provider in Charge: faisal Provider in Charge after Transfer: PCP Institutional Level of Care: Skilled - Diagnosis (1) ESRD on dialysis Status: Chronic (2) Diabetes Status: Chronic (3) Atrial fibrillation Status: Chronic (4) CAD (coronary artery disease) Status: Chronic (5) COPD exacerbation Status: Acute (6) Anoxic brain injury Status: Chronic - Transfer Medications Home Medications: Budesonide/Formoterol 160/4.5 [Symbicort 160/4.5] 2 puff IH BIDR 09/22/16 [ History] Darbepoetin [Aranesp] 100 mcg SQ QWEEK #0 syringe 03/07/17 [Rx] Quetiapine Fumarate [Seroquel] 50 mg GTUBE HS 04/05/17 [History] Cinacalcet [Sensipar] 30 mg PO DAILY tab 04/07/17 [Rx] Aspirin 81 mg GTUBE DAILY 05/09/17 [History] Ipratropium/Albuterol Neb [Duoneb] 3 ml IH Q4H 05/09/17 [History] Nut.tx.impaired Renal Fxn,Soy [Nepro Carb Steady] 237 ml GTUBE 5XD 05/09/17 [ History] Omeprazole [PriLOSEC] 40 mg GTUBE DAILY 05/09/17 [History] Amoxicillin/Clavulanate [Augmentin] 500 mg PO DAILY@1700 tab 05/12/17 [Rx] Atorvastatin [Lipitor] 40 mg PO HS tab 05/12/17 [Rx] Metoprolol [Lopressor] 50 mg GTUBE BID tab 05/12/17 [Rx] Allergies/Adverse Reactions: 3 Allergy/AdvReac Type Severity Reaction Status Date / Time iodine Allergy Rash Verified 02/26/17 11:13 rofecoxib [From Vioxx] Allergy Swelling Verified 02/21/17 06:52 of Lip/Tongue/Throat - Respiratory Orders Smoking Cessation: Smoking cessation has been advised. For more information, call the [place] Tobacco Quit Line at 2-724-IWEI-NOW. - Lab Orders Lab Orders: CBC - Rehabiliation Orders Rehab Orders: ROM Exercises, Evaluation for Physical Therapy - Treatments Skin tear care topically daily PRN per policy, May check for fecal impaction rectally daily PRN, Fleet enema rectally every other day PRN cleansing purposes CERTIFICATION: I certify that the transfer of the above named patient to an Extended Care Facility is necessary for the continuing treatment of the diagnosis listed. The above information is true and accurate reflection of patient's current condition. Confidential - Redisclosure prohibited without a patient's written consent.
[2017-05-12] MEDS ORDERED: Amoxicillin/Clavulanate 500 MG TABLET PO SCH (17:00)
[2017-05-12 17:09] VITALS: BP 118/72
--- NOTE | 2017-05-15 21:00 | Electrocardiograph Report ---
[address] [address] Test Date: 2017-05-11 Pat Name: Jabier Hernandez Department: 110 Room: 2N09 Gender: M Social Media Content Manager: : 1945 Requested By: Sam Walter Order Number: [id number] Reading MD: Troy Abdi MD Measurements Intervals [place] Rate: 89 P: 101 SC: 231 QRS: -71 QRSD: 125 T: 90 QT: 432 QTc: 479 Interpretive Statements SINUS RHYTHM WITH FIRST DEGREE AV BLOCK LEFT ANTERIOR FASCICULAR BLOCK PROLONGED QT INTERVAL Poor R wave progression Electronically Signed On 05-15-2017 20:59:30 EDT by Troy Abdi MD
== END 2017-05-12 19:50 ==
LOC: EMEROO 17:39 → 2NNU 17:39
PROVIDERS: ADMIT Family Medicine; ATTEND Internal Medicine